=== PATIENT | male | born 1945 | race Caucasian/White ===

== ENCOUNTER 2020-01-11 09:00 | Outpatient (REF) | payer MEDICARE, SELFPAY ==
[2020-01-11 10:25] LABS: MANUAL DIFF FLAG NO
[2020-01-11 10:30] LABS: Basophils Percent Auto 0.5 % (0-2); Eosinophils Absolute Auto 0.2 X10*3/uL (0.0-0.4); Eosinophils Percent Auto 4.4 % (0-4); Hematocrit 49.1 % (42-52); Hemoglobin 16.2 g/dl (14.0-18.0); Imm Gran Abs Auto 0.01 X10*3/uL (0.00-0.03); Imm Gran Pct Auto 0.2 % (0.0-0.4); Lymphocytes Absolute Auto 1.4 X10*3/uL (1.2-4.9); Lymphocytes Percent Auto 26.1 % (20-40); Mean Corpuscular Hemoglobin 31.6 pg (27.0-33.0); Mean Corpuscular Volume 95.9 fL (80-98); Monocytes Absolute Auto 0.9 X10*3/uL (0.1-1.2); Monocytes Percent Auto 16.1 % (2-11); Neutrophils Absolute Auto 2.9 X10*3/uL (2.0-8.3); Neutrophils Percent Auto 52.7 % (45-73); Platelet Count 164 X10*3/uL (160-400); Red Blood Count 5.12 X10*6/uL (4.60-5.80); Red Cell Distribution Width 13.4 % (11.0-16.0); White Blood Count 5.5 X10*3/uL (4.8-10.8)
[2020-01-11 10:45] LABS: Glucose Urine UA NEG (NEG); Leukocyte Esterase Urine NEG (NEG); Nitrite Urine NEG (NEG); Urine Blood NEG (NEG); Urine Ketones NEG (NEG); Urine Protein NEG (NEG-TRACE)
[2020-01-11 10:48] LABS: Appearance Urine CLEAR; Color Urine YELLOW
[2020-01-11 11:04] LABS: Alanine Aminotransferase 26 U/L (0-40); Albumin Level 4.5 g/dL (3.5-5.0); Alkaline Phosphatase 72 U/L (39-117); Anion Gap 13 (12-20); Aspartate Amino Transferase 23 U/L (5-37); Bilirubin Total 1.6 mg/dL (0.0-1.0); Blood Urea Nitrogen 17 mg/dL (9-16); Calcium 9.5 mg/dL (8.4-10.2); Carbon Dioxide 26 mmol/L (22-29); Chloride 105 mmol/L (96-108); Cholesterol 179 mg/dL; Estimated Glomerular Filt Rate 52; Glucose Fasting 108 mg/dL (60-99); HDL Cholesterol 54 mg/dL; LDL Cholesterol Calculated 107 mg/dl; Potassium 4.4 mmol/l (3.3-5.1); Sodium 140 mmol/L (135-145); Total Protein 6.8 g/dL (6.5-8.0); Triglycerides 93 mg/dL
[2020-01-11 11:26] LABS: Prostate Specific Antigen 3.34 ng/mL (<0.05-4.0); Thyroid Stimulating Hormone 0.56 mIU/mL (0.32-4.0)
== END 2020-01-11 09:01 | disposition home or self-care (01) ==
LOC: HO.WFDLDS 09:00
PROVIDERS: Visit Provider Internal Medicine
DX: Z00.00 Encounter for general adult medical examination without abnormal findings (principal); Z12.5 Encounter for screening for malignant neoplasm of prostate; E03.9 Hypothyroidism, unspecified; I10 Essential (primary) hypertension; E78.00 Pure hypercholesterolemia, unspecified
CPT/HCPCS: 36415; 80053; 80061; 81003; 84153; 84443; 85025

== ENCOUNTER → 2020-04-05 08:26 | Outpatient (BNVA) | payer MEDICARE, SELFPAY | PROVIDERS: PCP Internal Medicine; Visit Provider Internal Medicine Cardiovascular Disease | DX: I50.30 Unspecified diastolic (congestive) heart failure (principal); I48.20 Chronic atrial fibrillation, unspecified; I07.1 Rheumatic tricuspid insufficiency | CPT/HCPCS: 99212 ==

== ENCOUNTER 2020-05-01 09:56 | Outpatient (REF) | payer MEDICARE, SELFPAY ==
[2020-05-01 11:13] LABS: Anion Gap 14 (12-20); Blood Urea Nitrogen 19 mg/dL (9-16); Calcium 9.6 mg/dL (8.4-10.2); Carbon Dioxide 26 mmol/L (22-29); Chloride 105 mmol/L (96-108); Estimated Glomerular Filt Rate 47; Glucose Random 71 mg/dL (60-115); Potassium 4.4 mmol/L (3.3-5.1); Sodium 141 mmol/L (135-145)
== END 2020-05-01 09:57 | disposition home or self-care (01) ==
LOC: HO.WFDLDS 09:56
PROVIDERS: Visit Provider Internal Medicine Cardiovascular Disease
DX: I50.30 Unspecified diastolic (congestive) heart failure (principal); I48.20 Chronic atrial fibrillation, unspecified
CPT/HCPCS: 36415; 80048

== ENCOUNTER 2020-07-23 10:45 | Outpatient (REF) | payer MEDICARE, SELFPAY ==
[2020-07-23 12:42] LABS: Alanine Aminotransferase 25 U/L (0-40); Albumin Level 4.4 g/dL (3.5-5.0); Alkaline Phosphatase 76 U/L (39-117); Aspartate Amino Transferase 20 U/L (5-37); Bilirubin Direct 0.5 mg/dL (0.0-0.5); Bilirubin Total 1.2 mg/dL (0.0-1.0); Cholesterol 175 mg/dL; HDL Cholesterol 52 mg/dL; LDL Cholesterol Calculated 103 mg/dl; Total Protein 6.8 g/dL (6.5-8.0); Triglycerides 100 mg/dL
[2020-07-23 12:58] LABS: Reflex LDLD? No
== END 2020-07-23 10:46 | disposition home or self-care (01) ==
LOC: HO.LNP 10:45
PROVIDERS: PCP Internal Medicine; Visit Provider Internal Medicine
DX: E78.00 Pure hypercholesterolemia, unspecified (principal)
CPT/HCPCS: 80061; 80076

== ENCOUNTER 2020-09-26 11:58 | Outpatient (REF) | payer MEDICARE, SELFPAY ==
[2020-09-27 13:12] LABS: Free Prostate Spec Ag 0.9 ng/mL; Percent Free Prostate Spec Ag 20 % (calc) (>25); Prostate Specific Ag Total 4.5 ng/mL (< OR = 4.0)
== END 2020-09-26 11:59 | disposition home or self-care (01) ==
LOC: HO.WFDLDS 11:58
PROVIDERS: PCP Internal Medicine; Visit Provider Physician Assistant Surgical
DX: Z12.5 Encounter for screening for malignant neoplasm of prostate (principal); R97.20 Elevated prostate specific antigen [PSA]
CPT/HCPCS: 36415; 84154

== ENCOUNTER → 2020-10-02 07:30 | Outpatient (REF) | payer MEDICARE, SELFPAY ==
--- NOTE | 2020-10-02 07:32 | CA_ITS ---
Transthoracic Echocardiogram Patient (Last, First, Middle): Madan Oliveira, Gender: Male Date of : 1945 Age: 75 Procedure Date: 10/02/2020 Procedure Type: Transthoracic Echocardiogram Location: OP Height: 175.26 cm Weight: 83.46 kg BSA: 1.99 m2 Heart Rate: bpm BP: 128 / 84 mmHg Locomotive Engineer: Referring MD: Miguel A Garay MD Symptoms: I50.30 - Unspecified diastolic (congestive) heart failure Study Quality: Fair ECG Rhythm: Atrial Fibrillation Conclusions: - The left ventricular systolic function is normal. The visually estimated ejection fraction is between 55-60%. - Mildly increased right ventricular cavity size. - The left atrium is mildly dilated. The right atrium is moderately dilated. - There is mild mitral valve regurgitation. - There is mild tricuspid valve regurgitation. Findings Left Ventricle Normal left ventricular cavity size. There is mildly increased left ventricular wall thickness. The left ventricular systolic function is normal. The visually estimated ejection fraction is between 55-60%. There is no evidence of regional wall motion abnormalities. Diastolic function is indeterminate on the basis of available data. Right Ventricle Mildly increased right ventricular cavity size. There is normal right ventricular systolic function. Atria The left atrium is mildly dilated. The right atrium is moderately dilated. Aortic Valve There is a normal trileaflet aortic valve. There is no aortic valve stenosis. There is no aortic valve regurgitation. Mitral Valve The mitral valve appears normal. There is mild mitral valve regurgitation. There is no mitral valve stenosis. Pulmonic Valve The pulmonic valve was not well visualized. Tricuspid Valve There is mild tricuspid valve regurgitation. The pulmonary artery systolic pressure is normal. Great Vessels The asc aorta and aortic arch are normal in size. Venous The inferior vena cava is normal in size and collapses greater than 50% with inspiration. Pericardium/Pleural There is no evidence of pericardial effusion. Prior Study Comparison No significant change compared to prior study dated: 10/12/2019. Measurements 2D Linear Measurements RVIDd: 3.95 RVIDd Index: 1.98 IVSd: 1.15 0.6-0.9/0.6-1.0 cm LVIDd: 4.37 3.9-5.3/4.2-5.9 cm LVIDd Index: 2.20 2.4-3.2/2.2-3.1 cm/m2 LVIDs: 3.58 2.0-3.6 cm LVPWd: 1.12 0.7-1.1 cm Ao Root: 2.70 2.1-3.5 cm LA Diam: 5.30 2.7-3.8/3.0-4.0 cm LAIDs Index: 2.66 1.5-2.3 cm/m2 LV Mass: 217.67 67-162/88-224 g LV Mass Index: 109.38 43-95/49-115 g/m2 LVOT Diam: 2.10 3.0+(-)1.3 cm 2D Systolic Function EF 4C: 45.80 >55% EF 2C: 51.80 >55% EF BiP: 50.10 >55% Mitral Valve MR Vol - PW Dopp: 11.27 MR VTI: 1.61 MR ERO: 7.00 MR Alias David: 0.32 MR RAD: 0.40 Aortic Valve AoV Pk David: 0.88 AoV Mn David: 0.77 AoV VTI: 0.19 AoV Pk Grad: 3.00 Aov Mn Grad: 2.00 ANA Cont.VTI: 2.09 LVOT LVOT Pk David: 0.58 LVOT Mn David: 0.43 LVOT VTI: 0.11 LVOT Pk Grad: 1.00 LVOT Mn Grad: 1.00 LVOT Diam: 2.10 LVOT Area: 3.46 Tricuspid Valve TR Pk David: 2.66 TR Pk Grad: 28.00 RA Press: 3.00 RVSP: 31.00 Great Vessels Aorta Ao Root-2D: 2.70 2.0-3.7 cm Ao Asc: 3.20 2.1-3.4 cm Ao Arch: 2.80 Updated in Other Vendor System with Status of Final Matt Cleary MD electronically signed on 10/03/2020 1:30:07 PM with status of Final
== END ==
LOC: HO.CARD 07:30
PROVIDERS: PCP Internal Medicine; Visit Provider Internal Medicine Cardiovascular Disease
DX: I48.20 Chronic atrial fibrillation, unspecified (principal); I11.0 Hypertensive heart disease with heart failure; I50.30 Unspecified diastolic (congestive) heart failure; I07.1 Rheumatic tricuspid insufficiency
CPT/HCPCS: 93306

== ENCOUNTER 2020-10-07 13:26 | Outpatient (REF) | payer MEDICARE, SELFPAY | END 2020-10-07 13:27 | disposition home or self-care (01) | LOC: HO.LAB 13:26 | PROVIDERS: PCP Internal Medicine; Referring Provider Internal Medicine; Visit Provider Internal Medicine Cardiovascular Disease | DX: I48.20 Chronic atrial fibrillation, unspecified (principal); I50.30 Unspecified diastolic (congestive) heart failure | CPT/HCPCS: Q3014 ==

== ENCOUNTER 2020-10-09 09:11 | Outpatient (REF) | payer MEDICARE, SELFPAY ==
[2020-10-09 11:21] LABS: Anion Gap 14 (12-20); Blood Urea Nitrogen 17 mg/dL (9-16); Calcium 9.7 mg/dL (8.4-10.2); Carbon Dioxide 24 mmol/L (22-29); Chloride 106 mmol/L (96-108); Estimated Glomerular Filt Rate 46; Glucose Random 133 mg/dL (60-115); Potassium 4.4 mmol/L (3.3-5.1); Sodium 140 mmol/L (135-145)
== END 2020-10-09 09:12 | disposition home or self-care (01) ==
LOC: HO.WFDLDS 09:11
PROVIDERS: PCP Internal Medicine; Visit Provider Internal Medicine Cardiovascular Disease
DX: I48.20 Chronic atrial fibrillation, unspecified (principal)
CPT/HCPCS: 36415; 80048

== ENCOUNTER 2021-01-20 08:31 | Outpatient (REF) | payer MEDICARE, SELFPAY ==
[2021-01-20 11:27] LABS: MANUAL DIFF FLAG NO
[2021-01-20 11:34] LABS: Appearance Urine CLEAR; Color Urine YELLOW; Glucose Urine UA NEG (NEG); Leukocyte Esterase Urine NEG (NEG); Nitrite Urine NEG (NEG); Specific Gravity - Urine 1.015 (1.005-1.025); Urine Blood NEG (NEG); Urine Ketones NEG (NEG); Urine Protein NEG (NEG-TRACE)
[2021-01-20 11:37] LABS: Basophils Percent Auto 0.5 % (0-2); Eosinophils Absolute Auto 0.3 X10*3/uL (0.0-0.4); Hematocrit 49.3 % (42-52); Hemoglobin 16.1 g/dl (14.0-18.0); Imm Gran Abs Auto 0.01 X10*3/uL (0.00-0.03); Imm Gran Pct Auto 0.2 % (0.0-0.4); Lymphocytes Absolute Auto 1.7 X10*3/uL (1.2-4.9); Lymphocytes Percent Auto 28.5 % (20-40); Mean Corpuscular HGB Conc 32.7 g/dl (31.0-36.0); Mean Corpuscular Hemoglobin 31.9 pg (27.0-33.0); Mean Corpuscular Volume 97.8 fL (80-98); Mean Platelet Volume 11.2 fL (9.4-12.4); Monocytes Absolute Auto 0.9 X10*3/uL (0.1-1.2); Neutrophils Absolute Auto 2.9 X10*3/uL (2.0-8.3); Neutrophils Percent Auto 49.8 % (45-73); Platelet Count 149 X10*3/uL (160-400); Red Blood Count 5.04 X10*6/uL (4.60-5.80); Red Cell Distribution Width 13.4 % (11.0-16.0); White Blood Count 5.8 X10*3/uL (4.8-10.8)
[2021-01-20 12:08] LABS: Alanine Aminotransferase 26 U/L (0-40); Albumin Level 4.3 g/dL (3.5-5.0); Alkaline Phosphatase 74 U/L (39-117); Anion Gap 13 (12-20); Aspartate Amino Transferase 22 U/L (5-37); Bilirubin Total 1.4 mg/dL (0.0-1.0); Blood Urea Nitrogen 17 mg/dL (9-16); Calcium 9.5 mg/dL (8.4-10.2); Carbon Dioxide 26 mmol/L (22-29); Chloride 106 mmol/L (96-108); Cholesterol 169 mg/dL; Estimated Glomerular Filt Rate 49; Glucose Fasting 111 mg/dL (60-99); HDL Cholesterol 50 mg/dL; LDL Cholesterol Calculated 101 mg/dl; Potassium 4.5 mmol/L (3.3-5.1); Sodium 140 mmol/L (135-145); Total Protein 6.6 g/dL (6.5-8.0); Triglycerides 93 mg/dL
== END 2021-01-20 08:32 | disposition home or self-care (01) ==
LOC: HO.WFDLDS 08:31
PROVIDERS: Visit Provider Internal Medicine
DX: Z00.00 Encounter for general adult medical examination without abnormal findings (principal); Z12.5 Encounter for screening for malignant neoplasm of prostate; E03.9 Hypothyroidism, unspecified; I10 Essential (primary) hypertension; E83.52 Hypercalcemia; E78.00 Pure hypercholesterolemia, unspecified; N40.0 Benign prostatic hyperplasia without lower urinary tract symptoms
CPT/HCPCS: 36415; 80053; 80061; 81003; 84153; 84443; 85025

== ENCOUNTER 2021-03-27 09:45 | Outpatient (REF) | payer MEDICARE, SELFPAY ==
[2021-03-27 11:23] LABS: Anion Gap 10 (12-20); Blood Urea Nitrogen 15 mg/dL (9-16); Calcium 9.6 mg/dL (8.4-10.2); Carbon Dioxide 29 mmol/L (22-29); Chloride 105 mmol/L (96-108); Estimated Glomerular Filt Rate 50; Glucose Random 100 mg/dL (60-115); Potassium 4.5 mmol/L (3.3-5.1); Sodium 139 mmol/L (135-145)
[2021-03-27 11:27] LABS: B Type Natriuretic Peptide 226 pg/mL (<100)
== END 2021-03-27 09:46 | disposition home or self-care (01) ==
LOC: HO.WFDLDS 09:45
PROVIDERS: Visit Provider Internal Medicine Cardiovascular Disease
DX: I48.20 Chronic atrial fibrillation, unspecified (principal); I50.30 Unspecified diastolic (congestive) heart failure
CPT/HCPCS: 36415; 80048; 83880

== ENCOUNTER → 2021-04-01 12:49 | Outpatient (BNVA) | payer MEDICARE, SELFPAY | PROVIDERS: PCP Internal Medicine; Referring Provider Internal Medicine; Visit Provider Internal Medicine Cardiovascular Disease | DX: I50.30 Unspecified diastolic (congestive) heart failure (principal); I48.20 Chronic atrial fibrillation, unspecified | CPT/HCPCS: 93005; 99212 ==

== ENCOUNTER 2021-07-17 09:35 | Outpatient (REF) | payer MEDICARE, SELFPAY ==
[2021-07-17 12:26] LABS: Alanine Aminotransferase 32 U/L (0-40); Albumin Level 4.2 g/dL (3.5-5.0); Alkaline Phosphatase 77 U/L (39-117); Aspartate Amino Transferase 26 U/L (5-37); Bilirubin Direct 0.4 mg/dL (0.0-0.5); Bilirubin Total 1.1 mg/dL (0.0-1.0); Cholesterol 186 mg/dL; HDL Cholesterol 55 mg/dL; LDL Cholesterol Calculated 114 mg/dl; Total Protein 6.8 g/dL (6.5-8.0); Triglycerides 85 mg/dL
== END 2021-07-17 09:36 | disposition home or self-care (01) ==
LOC: HO.WFDLDS 09:35
PROVIDERS: Visit Provider Internal Medicine
DX: E78.00 Pure hypercholesterolemia, unspecified (principal)
CPT/HCPCS: 36415; 80061; 80076

== ENCOUNTER 2021-07-25 10:05 | Outpatient (REF) | payer MEDICARE, SELFPAY ==
--- NOTE | ~2021-07-25 | US_ITS ---
EXAMINATION: ULTRASOUND VENOUS DUPLEX RIGHT LEG. CHEST X-RAY. CLINICAL INFORMATION: Right calf tenderness. Bronchospasm. COMPARISON: None TECHNIQUE: Routine grayscale, color and Doppler imaging of right lower leg was performed. Chest 2 views. FINDINGS: RIGHT LOWER LEG VENOUS DOPPLER EXAM: There is normal compression, flow and augmentation seen in the right common femoral, greater saphenous, profunda, popliteal, posterior tibial and peroneal veins. There is no Lipscomb's cyst. The soft tissues are normal. CHEST: Both lungs are fairly well-expanded and clear of acute pneumonic process . The heart size is enlarged. Pulmonary vascularity is normal. 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 No lytic process. US/US venous duplex LE RT IMPRESSION: Mild cardiomegaly otherwise unremarkable chest exam. 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 No evidence of DVT right lower leg.
== END 2021-07-25 10:06 | disposition home or self-care (01) ==
LOC: HO.US 10:05
PROVIDERS: PCP Internal Medicine; Visit Provider Internal Medicine
DX: J98.01 Acute bronchospasm (principal); M79.661 Pain in right lower leg
CPT/HCPCS: 71046; 93971

== ENCOUNTER 2021-08-03 12:25 | Inpatient (IN) | payer MEDICARE, SELFPAY ==
[2021-08-03] VITALS (25 sets, daily range): BP systolic 41–135; BP diastolic 21–101; PULSE 59–154; RESP 16–24; TEMP 35.2–36.3; O2SAT 97–100; BMI 28.0
--- NOTE | ~2021-08-03 | NM_ITS ---
EXAMINATION: PULMONARY PERFUSION STUDY CLINICAL INFORMATION: Rule out pulmonary embolism. COMPARISON: No previous lung scan is available for comparison. A radiograph of the chest dated 08/03/20[address] is available for comparison. CT scan of the chest on the same date is also available. TECHNIQUE: Following the intravenous administration of 4.0 mCi Tc-99m MAA an 8-view perfusion study was performed using a dual detector gamma scintillation camera. No ventilation images were obtained. FINDINGS: Perfusion images: There is moderately heterogeneous distribution of activity within the lungs with multiple subsegmental perfusion defects present bilaterally in the lower lobes and right middle lobe. No segmental perfusion defects are present. The CT scan dated 08/03/2021 shows some linear atelectasis or scarring in the right middle lobe, the bilateral lower lobes and lingula that are in the regions of the perfusion abnormalities described above on this lung scan. NM/NM pul perfusion IMPRESSION: Intermediate probability of pulmonary embolism. Predominantly bilateral lower lobe and right middle lobe subsegmental perfusion defects are present and while these could be due to atelectasis or pneumonitis, pulmonary embolism cannot be ruled out. If not contraindicated, further evaluation with CT angiography of the chest is recommended.
--- NOTE | ~2021-08-03 | CT_ITS ---
EXAMINATION: CT CHEST WITHOUT CONTRAST CLINICAL INFORMATION: Cough and shortness of breath COMPARISON: Today's chest film and priors TECHNIQUE: Multidetector volumetric CT imaging of the chest was done. Axial MIP volume rendering provided. Sagittal and coronal reformatted images were obtained. This CT examination was performed using dose optimization techniques as appropriate, variously including the following: *Automated exposure control *Adjustment of mA and/or kV according to patient size (this includes techniques or standardized protocols for targeted exams where dose is matched to indication/reason for exam; i.e. extremities or head) *Use of iterative reconstruction technique DLP: 323 mGy-cm FINDINGS: MANAGER UNION: Linear midlung parenchymal opacities again noted. LUNGS: Parenchymal opacities in the lingula and right middle lobe and both posterior lower lobes are predominantly linear and bandlike. This most likely represents subsegmental atelectasis. Cannot exclude bronchopneumonia. There is diffuse bronchial wall thickening. Common considerations bronchitis (acute or chronic, asthma, or smoking. Clinical correlation is required regarding upper respiratory tract infection. No lobar consolidation. MEDIASTINUM: No mass. No adenopathy. Moderate coronary artery disease. Mild atherosclerotic peripheral vascular disease. PLEURA: There is no pleural effusion. No pleural mass or thickening. AXILLA: No lymphadenopathy. UPPER ABDOMEN: There is a small volume of ascites. This is abnormal but of uncertain etiology. Recommend evaluation of the abdomen. Perinephric fat stranding is nonspecific. Often age-related, however clinical correlation is required to exclude pyelonephritis or glomerulonephritis. OSSEOUS STRUCTURES: Degenerative spine disease. CT/CT chest wo con IMPRESSION: 1. Diffusely thick-walled airways. 2. Multifocal predominantly linear bandlike parenchymal opacities. Subsegmental atelectasis favored but cannot exclude bronchopneumonia. 3. Small volume of loculated ascites overlying the liver. This is abnormal and further evaluation of the abdomen is advised. Fleischner guidelines were followed.
--- NOTE | ~2021-08-03 | XR_ITS ---
EXAMINATION: XR CHEST CLINICAL INFORMATION: Chest pain and shortness of breath COMPARISON: Chest x-ray on 07/25/2021 TECHNIQUE: 2 views of the chest were obtained. FINDINGS: The cardiac mediastinal silhouette is normal. Linear atelectasis in lingula. No pleural effusions. No additional areas consolidation. XR/XR chest 2V IMPRESSION: Lingular atelectasis.
--- NOTE | ~2021-08-03 | XR_ITS ---
EXAMINATION: XR CHEST CLINICAL INFORMATION: Central line placement COMPARISON: Earlier exam same day TECHNIQUE: Portable upright 6:46 PM view of the chest was obtained. FINDINGS: Right-sided central line placed with its tip overlying the SVC. No pneumothorax. Minor discoid atelectasis on the left again noted. No significant abnormality is otherwise new noted involving the heart, lungs, mediastinum, bony thorax or soft tissues. XR/XR chest 1V IMPRESSION: As above.
--- NOTE | 2021-08-03 12:47 | ECG_ITS ---
Test Reason : SOB Blood Pressure : / mmHG Vent. Rate : 126 BPM Atrial Rate : 000 BPM P-R Int : 000 ms QRS Dur : 076 ms QT Int : 320 ms P-R-T Axes : 000 022 -12 degrees QTc Int : 463 ms Atrial fibrillation with rapid ventricular response Nonspecific T wave abnormality Abnormal ECG When compared with ECG of 15-JAN-2012 09:11, No significant change was found Referred By: Shalonda Moscoso Electronically Signed By:ANDREY CASTRO MD
--- NOTE | 2021-08-03 13:09 | ED_ITS ---
HPI - URI/Sore Throat General Chief Complaint: Upper Respiratory Symptoms <Shalonda Moscoso NP - Last Filed: 08/03/21 16:51> Stated Complaint: SOB/Cough <Shalonda Moscoso NP - Last Filed: 08/03/21 16:51> Time Seen by Provider: 08/03/21 12:36 <Shalonda Moscoso NP - Last Filed: 08/03/21 16:51> Source: patient and family <Shalonda Moscoso NP - Last Filed: 08/03/21 16:51> Mode of arrival: wheelchair <LUANN Dudley Last Filed: 08/03/21 16:51> Limitations: no limitations <LUANN Dudley Last Filed: 08/03/21 16:51> History of Present Illness HPI Narrative: 76-year-old male with a history of AFib on Pradaxa/rate controlled with atenolol, congestive heart failure on 20 mg of Lasix daily with EF 55-60%, hypertension here with reports of 10 days of cough, shortness of breath and chest tightness. Patient tells me he took his last dose of prednisone today after completing a 10 day taper that was prescribed by his primary care doctor. Did have an outpatient chest x-ray last week which was normal per patient. Tells me he has continued to have cough and shortness of breath. He tells me he is only able to walk a few steps without feeling like it is difficult to breathe. No orthopnea, no leg swelling or weight gain, no chest pain, no fevers . No reported history of COPD or asthma. Patient tells me he has a history of former tobacco use <LUANN Dudley Last Filed: 08/03/21 16:51> Related Data Home Medications: Home Medications Medication Instructions Recorded Confirmed atorvastatin 10 mg tablet 10 mg PO DAILY 04/05/20 08/03/21 furosemide 20 mg tablet 20 mg PO DAILY 04/05/20 08/03/21 latanoprost 0.005 % eye drops 1 drp OPHTHALMIC (EYE) BEDTIME 04/05/20 08/03/21 levothyroxine 100 mcg tablet 100 mcg PO DAILY 04/05/20 08/03/21 omeprazole 20 mg capsule,delayed 20 mg PO DAILY 04/05/20 08/03/21 release dabigatran etexilate 150 mg 150 mg PO BID 10/07/20 08/03/21 capsule (Pradaxa) albuterol sulfate 90 mcg/actuation 1 puff INHALATION Q4H PRN 08/03/21 08/03/21 aerosol inhaler Previous Rx's Medication Instructions Recorded atenolol 100 mg tablet 100 mg PO BID #180 cap 05/14/21 <Shalonda Moscoso NP - Last Filed: 08/03/21 16:51> Allergies/Adverse Reactions: Allergies Allergy/AdvReac Type Severity Reaction Status Date / Time No Known Allergies Allergy Verified 04/01/21 12:57 <Shalonda Moscoso NP - Last Filed: 08/03/21 16:51> Review of Systems Review of Systems: Yes all other systems are reviewed and are negative <LUANN Dudley Last Filed: 08/03/21 16:51> Constitutional: Constitutional: Reports no additional constitutional complaints, Denies body ache(s), Denies chills, Denies fever(s), Denies headache(s) and Denies weakness <LUANN Dudley Last Filed: 08/03/21 16:51> Eyes: Eyes: Reports no additional eye complaints and Denies change in vision <LUANN Dudley Last Filed: 08/03/21 16:51> ENT: Reports system reviewed and no additional complaints, except as documented, Denies dizziness, Denies headache(s), Denies nasal congestion, Denies nasal discharge and Denies neck pain <Shalonda Moscoso NP - Last Filed: 08/03/21 16:51> Cardiovascular: Cardiovascular: Reports no additional cardiovascular c omplaints, Denies chest pain, Denies leg edema and Reports dyspnea <LUANN Dudley Last Filed: 08/03/21 16:51> Comments: +chest tightness <Shalonda Moscoso NP - Last Filed: 08/03/21 16:51> Respiratory: Respiratory: Reports no additional respiratory complaints, Reports cough and Reports dyspnea <Shalonda Moscoso NP - Last Filed: 08/03/21 16:51> Gastrointestinal: Gastrointestinal: Reports no additional gastrointestinal complaints, Denies abdominal pain, Denies diarrhea, Denies nausea and Denies vomiting <Shalonda Moscoso NP - Last Filed: 08/03/21 16:51> Genitourinary: Genitourinary: Denies urinary incontinence <Shalonda Moscoso NP - Last Filed: 08/03/21 16:51> Musculoskeletal: Musculoskeletal: Reports no additional musculoskeletal complaints, Denies back pain, Denies arthralgias, Denies joint swelling, Denies neck pain, Denies numbness and Denies tingling <Shalonda Moscoso NP - Last Filed: 08/03/21 16:51> Integumentary/Breasts: Skin/Breast: Reports system reviewed and no additional complaints, except as docu and Denies rash <Shalonda Moscoso NP - Last Filed: 08/03/21 16:51> Neurologic: Reports system reviewed and no additional complaints, except as documented, Denies Abnormal speech present, Denies dizziness, Denies headache(s), Denies numbness, Denies tingling and Denies weakness <Shalonda Moscoso NP - Last Filed: 08/03/21 16:51> [facility] Past Medical History Attestation statement: The following information was validated with the patient. <Shalonda Moscoso NP - Last Filed: 08/03/21 16:51> Source: old records reviewed and nursing notes reviewed <Shalonda Moscoso NP - Last Filed: 08/03/21 16:51> Medical History: Medical History (HFpEF) heart failure with preserved ejection fraction Biatrial enlargement Chronic atrial fibrillation Chronic kidney disease HTN (hypertension) Tricuspid regurgitation <Shalonda Moscoso NP - Last Filed: 08/03/21 16:51> Surgical History: Surgical History History of appendectomy History of esophageal dilatation Hx of cataract surgery Hx of inguinal hernia repair <LUANN Dudley Last Filed: 08/03/21 16:51> Family History Family History: Family History Father No problems noted. Mother HTN (hypertension) <Shalonda Moscoso NP - Last Filed: 08/03/21 16:51> Social History Social History: Social History Alcohol intake: current Alcohol intake frequency: does not drink Alcohol type: wine Patient Tobacco Use Status: Former Tobacco user Quit Date: 1967 Years Smoked: 10 +/- <Shalonda Moscoso NP - Last Filed: 08/03/21 16:51> Physical Exam Vital Signs: Vital Signs: Last Vital Signs Temp 95.3 F L 08/03/21 12:28 Pulse 127 H 08/03/21 21:00 Resp 16 08/03/21 21:00 BP 129/74 08/03/21 21:00 Pulse Ox 100 08/03/21 21:00 BMI result Body Mass Index 28.0 <Shalonda Moscoso NP - Last Filed: 08/03/21 16:51> Vital Signs: Last Vital Signs Temp 95.3 F L 08/03/21 12:28 Pulse 127 H 08/03/21 21:00 Resp 16 08/03/21 21:00 BP 129/74 08/03/21 21:00 Pulse Ox 100 08/03/21 21:00 BMI result Body Mass Index 28.0 <Nikki Wilkerson MD - Last Filed: 08/03/21 22:41> Const: General: cooperative, healthy appearing, comfortable and no acute distress <Shalonda Moscoso NP - Last Filed: 08/03/21 16:51> Orientation/consciousness: patient oriented x3 <Shalonda Moscoso NP - Last Filed: 08/03/21 16:51> Limitations: no limitations <Shalonda Moscoso NP - Last Filed: 08/03/21 16:51> HEENT: Head: Yes normal to inspection <Shalonda Moscoso NP - Last Filed: 08/03/21 16:51> Ears: hearing grossly normal bilaterally and TM's normal bilaterally <Shalonda Moscoso NP - Last Filed: 08/03/21 16:51> General nose exam: Normal external nose present <Shalonda Moscoso NP - Last Filed: 08/03/21 16:51> Face and sinus: Yes normal facial exam <Shalonda Moscoso NP - Last Filed: 08/03/21 16:51> Mouth: Normal oral and palatal mucosa present <Shalonda Moscoso NP - Last Filed: 08/03/21 16:51> Throat: Yes posterior oropharynx normal, Yes tonsils normal and Yes uvula midline <Shalonda Moscoso NP - Last Filed: 08/03/21 16:51> Eyes: General: appearance normal, both eyes and all related structures <Shalonda Moscoso NP - Last Filed: 08/03/21 16:51> Pupils: Equal, round and reactive pupils present <Shalonda Moscoso NP - Last Filed: 08/03/21 16:51> Neck: Neck: Yes normal visual inspection, Yes full ROM, Yes no lymphadenopathy and Yes no meningeal signs <Shalonda Moscoso NP - Last Filed: 08/03/21 16:51> Chest: Chest palpation & inspection: normal inspection of the chest <Shalonda Moscoso NP - Last Filed: 08/03/21 16:51> Resp: Other: Tachypnea-rate of 24 Expiratory wheezing throughout <Shalonda Moscoso NP - Last Filed: 08/03/21 16:51> Cardio: Rate: tachycardic <Shalonda Moscoso NP - Last Filed: 08/03/21 16:51> Rhythm: abnormal rhythm irregularly irregular <Shalonda Moscoso NP - Last Filed: 08/03/21 16:51> Peripheral pulses: Peripheral pulses 2+ throughout <Shalonda Moscoso NP - Last Filed: 08/03/21 16:51> GI: Inspection: Yes normal to inspection <Shalonda Moscoso NP - Last Filed: 08/03/21 16:51> Palpation (GI): Soft to palpation and nontender <Shalonda Moscoso NP - Last Filed: 08/03/21 16:51> Auscultation: normal bowel sounds <Shalonda Moscoso NP - Last Filed: 08/03/21 16:51> Back/Spine/Pelvis: Thoracic/Lumbar Spine: thoracic and lumbar spine normal to inspection <Shalonda Moscoso NP - Last Filed: 08/03/21 16:51> Skin: General skin exam: no rashes or lesions noted <Shalonda Moscoso NP - Last Filed: 08/03/21 16:51> Neuro: General: patient oriented x3, no meningeal signs, no focal motor defic its and normal sensation to monofilament <Shalonda Moscoso NP - Last Filed: 08/03/21 16:51> Cranial nerves: Yes Equal, round and reactive pupils present <Shalonda Moscoso NP - Last Filed: 08/03/21 16:51> Cognition (Neuro): normal cognition <Shalonda Moscoso NP - Last Filed: 16:51> Speech: No Abnormal speech present <Shalonda Moscoso NP - Last Filed: 08/03/21 16:51> Gait exam (Neuro): Normal gait present <Shalonda Moscoso NP - Last Filed: 08/03/21 16:51> Motor exam (neuro): 5/5 motor strength present throughout <Shalonda Moscoso NP - Last Filed: 08/03/21 16:51> Extrem: General: Yes normal to inspection, Yes no pedal edema and Yes no calf tenderness <Shalonda Moscoso NP - Last Filed: 08/03/21 16:51> Course Course Course Narrative: 76-year-old male with a history of congestive heart failure, AFib, hyp ertension here with reports of shortness of breath, cough, chest tightness for 10 days unrelieved with albuterol at home, prednisone taper. On arrival the patient is mildly tachypneic. Oxygen saturation is normal. He has expiratory wheezing throughout. He is tachycardic with irregularly irregular pulse. Will check labs, EKG, chest x-ray, COVID and flu testing. Will give DuoNeb, magnesium, Solu-Medrol, Cardizem for rate control <Shalonda Moscoso NP - Last Filed: 08/03/21 16:51> Reevaluation(s) Reevaluation #1: Heart rate now 140s despite 10 mg of IV Cardizem. Blood pressure is stable. Patient be placed on a Cardizem drip. Reviewed labs. Mildly elevated lactic acid which is likely secondary to albuterol and not infection. Leukocytosis which is likely reactive and not infection. Patient has an elevated BUN and creatinine consistent with an BONI. He also has an elevated troponin with no reports of chest pain in the EKG which shows AFib with no ST changes. Plan to follow, low concern for ACS. BNP elevated from previous. CXR pending. <Shalonda Moscoso NP - Last Filed: 08/03/21 16:51> Time: 14:24 <Shalonda Moscoso NP - Last Filed: 08/03/21 16:51> Reevaluation #2: CT is concerning for pneumonia. At this time infection is suspected. Antibiotics ordered. There may also be underlying CHF. Patient clinically does not appear failure but does have an increased BNP from baseline. Will give 20 mg IV Lasix. Troponin initially mildly elevated. Repeat unchanged. Likely demand. Low concern for ACS Anticipate admission <Shalonda Moscoso NP - Last Filed: 08/03/21 16:51> Time: 15:39 <Shalonda Moscoso NP - Last Filed: 08/03/21 16:51> Reevaluation #3: Spoke to hospitalist Dr. Garza who accepted patient. <Shalonda Moscoso NP - Last Filed: 08/03/21 16:51> Time: 16:00 <Shalonda Moscoso NP - Last Filed: 08/03/21 16:51> MDM - URI/Sore Throat MDM Narrative Medical decision making narrative: Rapid AFib, viral syndrome, congestive heart failure, <Shalonda Moscoso NP - Last Filed: 08/03/21 16:51> Rapid AFib, viral syndrome, congestive heart failure, Approximately 16:30, I was asked by Dr. Garza to insert a central line. Patient's blood pressure was low and needed pressors, likely secondary to Cardizem. Patient agreed to the procedure. A triple-lumen was inserted, patient tolerated well the procedure <Nikki Wilkerson MD - Last Filed: 08/03/21 22:41> Medical Records Attestation: I reviewed the patient's medical records. <Shalonda Moscoso NP - Last Filed: 08/03/21 16:51> Lab Data Attestation: I reviewed the patient's lab results. <Shalonda Moscoso NP - Last Filed: 08/03/21 16:51> Result diagrams: : 08/03/21 13:07 08/03/21 13:07 <Shalonda Moscoso NP - Last Filed: 08/03/21 16:51> Labs: Lab Results 08/03/21 08/03/21 08/03/21 Range/Units 13:07 13:07 13:07 WBC 13.4 H (4.8-10.8) X10*3/uL RBC 5.12 (4.60-5.80) X10*6/uL Hgb 16.7 (14.0-18.0) g/dl Hct 50.2 (42.0-52.0) % MCV 98.0 (80.0-98.0) fL MCH 32.6 (27.0-33.0) pg MCHC 33.3 (31.0-36.0) g/dl RDW 13.8 (11.0-16.0) % Plt Count 188 (160-400) X10*3/uL MPV 11.1 (9.4-12.4) fL Immature Gran % (Auto) 2.1 H (0.0-0.4) % Neut % (Auto) 69.0 (45-73) % Lymph % (Auto) 15.8 L (20-40) % [place] % (Auto) 11.7 H (2-11) % Eos % (Auto) 1.3 (0-4) % Baso % (Auto) 0.1 (0-2) % Lymph # (Auto) 2.1 (1.2-4.9) X10*3/uL [place] # (Auto) 1.6 H (0.1-1.2) X10*3/uL Eos # (Auto) 0.2 (0.0-0.4) X10*3/uL Baso # (Auto) 0.0 (0.0-0.2) X10*3/uL Abs Immat Gran (auto) 0.28 H (0.00-0.03) X10*3/uL Absolute Neuts (auto) 9.2 H (2.0-8.3) x10*3/uL Absolute Nucleated RBC 0.000 (0.0-0.012) X10*3/uL Nucleated RBC % (auto) 0.0 (0.0-0.2) /100WBC Smear Tech's Comments VERIFIED PT (9.9-13.0) SEC INR (0.9-1.1) Sodium 138 (135-145) mmol/L Potassium 4.2 (3.3-5.1) mmol/L Chloride 103 (96-108) mmol/L Carbon Dioxide 23 (22-29) mmol/L Anion Gap 16 (12-20) BUN 28 H D (9-16) mg/dL Creatinine 1.84 H (0.5-1.4) mg/dL Estim Creat Clear Calc 37.1 Estimated GFR 36 Random Glucose 105 (60-115) mg/dL Lactic Acid (0.5-2.0) mmol/L Lactic Acid F/U @ 2Hr (0.5-2.0) mmol/L Calcium 9.7 (8.4-10.2) mg/dL Magnesium 2.4 (1.6-2.6) mg/dL Total Bilirubin 1.4 H (0.0-1.0) mg/dL Direct Bilirubin 0.6 H (0.0-0.5) mg/dL AST 37 D (5-37) U/L ALT 66 H (0-40) U/L Alkaline Phosphatase 60 D (39-117) U/L Troponin I High Sens 159.7 H* (<3.5-35.0) ng/L B-Natriuretic Peptide (<100) pg/mL Total Protein 7.1 (6.5-8.0) g/dL Albumin 4.4 (3.5-5.0) g/dL COVID-19 (JORGE) (Negative) COVID-19 Clin Com Influenza Type A (JOSIE) (Negative) Influenza Type B (JOSIE) (Negative) Influenza A & B Note 08/03/21 08/03/2108/03/22 Range/Units 13:07 13:07 13:07 WBC (4.8-10.8) X10*3/uL RBC (4.60-5.80) X10*6/uL Hgb (14.0-18.0) g/dl Hct (42.0-52.0) % MCV (80.0-98.0) fL MCH (27.0-33.0) pg MCHC (31.0-36.0) g/dl RDW (11.0-16.0) % Plt Count (160-400) X10*3/uL MPV (9.4-12.4) fL Immature Gran % (Auto) (0.0-0.4) % Neut % (Auto) (45-73) % Lymph % (Auto) (20-40) % [place] % (Auto) (2-11) % Eos % (Auto) (0-4) % Baso % (Auto) (0-2) % Lymph # (Auto) (1.2-4.9) X10*3/uL [place] # (Auto) (0.1-1.2) X10*3/uL Eos # (Auto) (0.0-0.4) X10*3/uL Baso # (Auto) (0.0-0.2) X10*3/uL Abs Immat Gran (auto) (0.00-0.03) X10*3/uL Absolute Neuts (auto) (2.0-8.3) x10*3/uL Absolute Nucleated RBC (0.0-0.012) X10*3/uL Nucleated RBC % (auto) (0.0-0.2) /100WBC Smear Tech's Comments PT 14.7 H (9.9-13.0) SEC INR 1.3 H (0.9-1.1) Sodium (135-145) mmol/L Potassium (3.3-5.1) mmol/L Chloride (96-108) mmol/L Carbon Dioxide (22-29) mmol/L Anion Gap (12-20) BUN (9-16) mg/dL Creatinine (0.5-1.4) mg/dL Estim Creat Clear Calc Estimated GFR Random Glucose (60-115) mg/dL Lactic Acid (0.5-2.0) mmol/L Lactic Acid F/U @ 2Hr (0.5-2.0) mmol/L Calcium (8.4-10.2) mg/dL Magnesium (1.6-2.6) mg/dL Total Bilirubin (0.0-1.0) mg/dL Direct Bilirubin (0.0-0.5) mg/dL AST (5-37) U/L ALT (0-40) U/L Alkaline Phosphatase (39-117) U/L Troponin I High Sens (<3.5-35.0) ng/L B-Natriuretic Peptide (<100) pg/mL Total Protein (6.5-8.0) g/dL Albumin (3.5-5.0) g/dL COVID-19 (JORGE) Negative (Negative) COVID-19 Clin Com See Note Influenza Type A (JOSIE) Negative (Negative) Influenza Type B (JOSIE) Negative (Negative) Influenza A & B Note See Note 08/03/21 08/03/21 08/03/21 Range/Units 13:07 13:08 15:51 WBC (4.8-10.8) X10*3/uL RBC (4.60-5.80) X10*6/uL Hgb (14.0-18.0) g/dl Hct (42.0-52.0) % MCV (80.0-98.0) fL MCH (27.0-33.0) pg MCHC (31.0-36.0) g/dl RDW (11.0-16.0) % Plt Count (160-400) X10*3/uL MPV (9.4-12.4) fL Immature Gran % (Auto) (0.0-0.4) % Neut % (Auto) (45-73) % Lymph % (Auto) (20-40) % [place] % (Auto) (2-11) % Eos % (Auto) (0-4) % Baso % (Auto) (0-2) % Lymph # (Auto) (1.2-4.9) X10*3/uL [place] # (Auto) (0.1-1.2) X10*3/uL Eos # (Auto) (0.0-0.4) X10*3/uL Baso # (Auto) (0.0-0.2) X10*3/uL Abs Immat Gran (auto) (0.00-0.03) X10*3/uL Absolute Neuts (auto) (2.0-8.3) x10*3/uL Absolute Nucleated RBC (0.0-0.012) X10*3/uL Nucleated RBC % (auto) (0.0-0.2) /100WBC Smear Tech's Comments PT (9.9-13.0) SEC INR (0.9-1.1) Sodium (135-145) mmol/L Potassium (3.3-5.1) mmol/L Chloride (96-108) mmol/L Carbon Dioxide (22-29) mmol/L Anion Gap (12-20) BUN (9-16) mg/dL Creatinine (0.5-1.4) mg/dL Estim Creat Clear Calc Estimated GFR Random Glucose (60-115) mg/dL Lactic Acid 2.3 H* (0.5-2.0) mmol/L Lactic Acid F/U @ 2Hr 2.0 (0.5-2.0) mmol/L Calcium (8.4-10.2) mg/dL Magnesium (1.6-2.6) mg/dL Total Bilirubin (0.0-1.0) mg/dL Direct Bilirubin (0.0-0.5) mg/dL AST (5-37) U/L ALT (0-40) U/L Alkaline Phosphatase (39-117) U/L Troponin I High Sens (<3.5-35.0) ng/L B-Natriuretic Peptide 1180 H (<100) pg/mL Total Protein (6.5-8.0) g/dL Albumin (3.5-5.0) g/dL COVID-19 (JORGE) (Negative) COVID-19 Clin Com Influenza Type A (JOSIE) (Negative) Influenza Type B (JOSIE) (Negative) Influenza A & B Note 08/03/21 Range/Units 16:00 WBC (4.8-10.8) X10*3/uL RBC (4.60-5.80) X10*6/uL Hgb (14.0-18.0) g/dl Hct (42.0-52.0) % MCV (80.0-98.0) fL MCH (27.0-33.0) pg MCHC (31.0-36.0) g/dl RDW (11.0-16.0) % Plt Count (160-400) X10*3/uL MPV (9.4-12.4) fL Immature Gran % (Auto) (0.0-0.4) % Neut % (Auto) (45-73) % Lymph % (Auto) (20-40) % [place] % (Auto) (2-11) % Eos % (Auto) (0-4) % Baso % (Auto) (0-2) % Lymph # (Auto) (1.2-4.9) X10*3/uL [place] # (Auto) (0.1-1.2) X10*3/uL Eos # (Auto) (0.0-0.4) X10*3/uL Baso # (Auto) (0.0-0.2) X10*3/uL Abs Immat Gran (auto) (0.00-0.03) X10*3/uL Absolute Neuts (auto) (2.0-8.3) x10*3/uL Absolute Nucleated RBC (0.0-0.012) X10*3/uL Nucleated RBC % (auto) (0.0-0.2) /100WBC Smear Tech's Comments PT (9.9-13.0) SEC INR (0.9-1.1) Sodium (135-145) mmol/L Potassium (3.3-5.1) mmol/L Chloride (96-108) mmol/L Carbon Dioxide (22-29) mmol/L Anion Gap (12-20) BUN (9-16) mg/dL Creatinine (0.5-1.4) mg/dL Estim Creat Clear Calc Estimated GFR Random Glucose (60-115) mg/dL Lactic Acid (0.5-2.0) mmol/L Lactic Acid F/U @ 2Hr (0.5-2.0) mmol/L Calcium (8.4-10.2) mg/dL Magnesium (1.6-2.6) mg/dL Total Bilirubin (0.0-1.0) mg/dL Direct Bilirubin (0.0-0.5) mg/dL AST (5-37) U/L ALT (0-40) U/L Alkaline Phosphatase (39-117) U/L Troponin I High Sens 158.1 H* (<3.5-35.0) ng/L B-Natriuretic Peptide (<100) pg/mL Total Protein (6.5-8.0) g/dL Albumin (3.5-5.0) g/dL COVID-19 (OJRGE) (Negative) COVID-19 Clin Com Influenza Type A (JOSIE) (Negative) Influenza Type B (JOSIE) (Negative) Influenza A & B Note <Shalonda Msocoso NP - Last Filed: 08/03/21 16:51> Lab Results 08/03/21 08/03/21 08/03/21 Range/Units 13:07 13:07 13:07 WBC 13.4 H (4.8-10.8) X10*3/uL RBC 5.12 (4.60-5.80) X10*6/uL Hgb 16.7 (14.0-18.0) g/dl Hct 50.2 (42.0-52.0) % MCV 98.0 (80.0-98.0) fL MCH 32.6 (27.0-33.0) pg MCHC 33.3 (31.0-36.0) g/dl RDW 13.8 (11.0-16.0) % Plt Count 188 (160-400) X10*3/uL MPV 11.1 (9.4-12.4) fL Immature Gran % (Auto) 2.1 H (0.0-0.4) % Neut % (Auto) 69.0 (45-73) % Lymph % (Auto) 15.8 L (20-40) % [place] % (Auto) 11.7 H (2-11) % Eos % (Auto) 1.3 (0-4) % Baso % (Auto) 0.1 (0-2) % Lymph # (Auto) 2.1 (1.2-4.9) X10*3/uL [place] # (Auto) 1.6 H (0.1-1.2) X10*3/uL Eos # (Auto) 0.2 (0.0-0.4) X10*3/uL Baso # (Auto) 0.0 (0.0-0.2) X10*3/uL Abs Immat Gran (auto) 0.28 H (0.00-0.03) X10*3/uL Absolute Neuts (auto) 9.2 H (2.0-8.3) x10*3/uL Absolute Nucleated RBC 0.000 (0.0-0.012) X10*3/uL Nucleated RBC % (auto) 0.0 (0.0-0.2) /100WBC Smear Tech's Comments VERIFIED PT (9.9-13.0) SEC INR (0.9-1.1) Sodium 138 (135-145) mmol/L Potassium 4.2 (3.3-5.1) mmol/L Chloride 103 (96-108) mmol/L Carbon Dioxide 23 (22-29) mmol/L Anion Gap 16 (12-20) BUN 28 H D (9-16) mg/dL Creatinine 1.84 H (0.5-1.4) mg/dL Estim Creat Clear Calc 37.1 Estimated GFR 36 Random Glucose 105 (60-115) mg/dL Lactic Acid (0.5-2.0) mmol/L Lactic Acid F/U @ 2Hr (0.5-2.0) mmol/L Calcium 9.7 (8.4-10.2) mg/dL Magnesium 2.4 (1.6-2.6) mg/dL Total Bilirubin 1.4 H (0.0-1.0) mg/dL Direct Bilirubin 0.6 H (0.0-0.5) mg/dL AST 37 D (5-37) U/L ALT 66 H (0-40) U/L Alkaline Phosphatase 60 D (39-117) U/L Troponin I High Sens 159.7 H* (<3.5-35.0) ng/L B-Natriuretic Peptide (<100) pg/mL Total Protein 7.1 (6.5-8.0) g/dL Albumin 4.4 (3.5-5.0) g/dL COVID-19 (JORGE) (Negative) COVID-19 Clin Com Influenza Type A (JOSIE) (Negative) Influenza Type B (JOSIE) (Negative) Influenza A & B Note 08/03/21 08/03/21 08/03/21 Range/Units 13:07 13:07 13:07 WBC (4.8-10.8) X10*3/uL RBC (4.60-5.80) X10*6/uL Hgb (14.0-18.0) g/dl Hct (42.0-52.0) % MCV (80.0-98.0) fL MCH (27.0-33.0) pg MCHC (31.0-36.0) g/dl RDW (11.0-16.0) % Plt Count (160-400) X10*3/uL MPV (9.4-12.4) fL Immature Gran % (Auto) (0.0-0.4) % Neut % (Auto) (45-73) % Lymph % (Auto) (20-40) % [place] % (Auto) (2-11) % Eos % (Auto) (0-4) % Baso % (Auto) (0-2) % Lymph # (Auto) (1.2-4.9) X10*3/uL [place] # (Auto) (0.1-1.2) X10*3/uL Eos # (Auto) (0.0-0.4) X10*3/uL Baso # (Auto) (0.0-0.2) X10*3/uL Abs Immat Gran (auto) (0.00-0.03) X10*3/uL Absolute Neuts (auto) (2.0-8.3) x10*3/uL Absolute Nucleated RBC (0.0-0.012) X10*3/uL Nucleated RBC % (auto) (0.0-0.2) /100WBC Smear Tech's Comments PT 14.7 H (9.9-13.0) SEC INR 1.3 H (0.9-1.1) Sodium (135-145) mmol/L Potassium (3.3-5.1) mmol/L Chloride (96-108) mmol/L Carbon Dioxide (22-29) mmol/L Anion Gap (12-20) BUN (9-16) mg/dL Creatinine (0.5-1.4) mg/dL Estim Creat Clear Calc Estimated GFR Random Glucose (60-115) mg/dL Lactic Acid (0.5-2.0) mmol/L Lactic Acid F/U @ 2Hr (0.5-2.0) mmol/L Calcium (8.4-10.2) mg/dL Magnesium (1.6-2.6) mg/dL Total Bilirubin (0.0-1.0) mg/dL Direct Bilirubin (0.0-0.5) mg/dL AST (5-37) U/L ALT (0-40) U/L Alkaline Phosphatase (39-117) U/L Troponin I High Sens (<3.5-35.0) ng/L B-Natriuretic Peptide (<100) pg/mL Total Protein (6.5-8.0) g/dL Albumin (3.5-5.0) g/dL COVID-19 (JORGE) Negative (Negative) COVID-19 Clin Com See Note Influenza Type A (JOSIE) Negative (Negative) Influenza Type B (JOSIE) Negative (Negative) Influenza A & B Note See Note 08/03/21 08/03/21 08/03/21 Range/Units 13:07 13:08 15:51 WBC (4.8-10.8) X10*3/uL RBC (4.60-5.80) X10*6/uL Hgb (14.0-18.0) g/dl Hct (42.0-52.0) % MCV (80.0-98.0) fL MCH (27.0-33.0) pg MCHC (31.0-36.0) g/dl RDW (11.0-16.0) % Plt Count (160-400) X10*3/uL MPV (9.4-12.4) fL Immature Gran % (Auto) (0.0-0.4) % Neut % (Auto) (45-73) % Lymph % (Auto) (20-40) % [place] % (Auto) (2-11) % Eos % (Auto) (0-4) % Baso % (Auto) (0-2) % Lymph # (Auto) (1.2-4.9) X10*3/uL [place] # (Auto) (0.1-1.2) X10*3/uL Eos # (Auto) (0.0-0.4) X10*3/uL Baso # (Auto) (0.0-0.2) X10*3/uL Abs Immat Gran (auto) (0.00-0.03) X10*3/uL Absolute Neuts (auto) (2.0-8.3) x10*3/uL Absolute Nucleated RBC (0.0-0.012) X10*3/uL Nucleated RBC % (auto) (0.0-0.2) /100WBC Smear Tech's Comments PT (9.9-13.0) SEC INR (0.9-1.1) Sodium (135-145) mmol/L Potassium (3.3-5.1) mmol/L Chloride (96-108) mmol/L Carbon Dioxide (22-29) mmol/L Anion Gap (12-20) BUN (9-16) mg/dL Creatinine (0.5-1.4) mg/dL Estim Creat Clear Calc Estimated GFR Random Glucose (60-115) mg/dL Lactic Acid 2.3 H* (0.5-2.0) mmol/L Lactic Acid F/U @ 2Hr 2.0 (0.5-2.0) mmol/L Calcium (8.4-10.2) mg/dL Magnesium (1.6-2.6) mg/dL Total Bilirubin (0.0-1.0) mg/dL Direct Bilirubin (0.0-0.5) mg/dL AST (5-37) U/L ALT (0-40) U/L Alkaline Phosphatase (39-117) U/L Troponin I High Sens (<3.5-35.0) ng/L B-Natriuretic Peptide 1180 H (<100) pg/mL Total Protein (6.5-8.0) g/dL Albumin (3.5-5.0) g/dL COVID-19 (JORGE) (Negative) COVID-19 Clin Com Influenza Type A (JOSIE) (Negative) Influenza Type B (JOSIE) (Negative) Influenza A & B Note 08/03/21 Range/Units 16:00 WBC (4.8-10.8) X10*3/uL RBC (4.60-5.80) X10*6/uL Hgb (14.0-18.0) g/dl Hct (42.0-52.0) % MCV (80.0-98.0) fL MCH (27.0-33.0) pg MCHC (31.0-36.0) g/dl RDW (11.0-16.0) % Plt Count (160-400) X10*3/uL MPV (9.4-12.4) fL Immature Gran % (Auto) (0.0-0.4) % Neut % (Auto) (45-73) % Lymph % (Auto) (20-40) % [place] % (Auto) (2-11) % Eos % (Auto) (0-4) % Baso % (Auto) (0-2) % Lymph # (Auto) (1.2-4.9) X10*3/uL [place] # (Auto) (0.1-1.2) X10*3/uL Eos # (Auto) (0.0-0.4) X10*3/uL Baso # (Auto) (0.0-0.2) X10*3/uL Abs Immat Gran (auto) (0.00-0.03) X10*3/uL Absolute Neuts (auto) (2.0-8.3) x10*3/uL Absolute Nucleated RBC (0.0-0.012) X10*3/uL Nucleated RBC % (auto) (0.0-0.2) /100WBC Smear Tech's Comments PT (9.9-13.0) SEC INR (0.9-1.1) Sodium (135-145) mmol/L Potassium (3.3-5.1) mmol/L Chloride (96-108) mmol/L Carbon Dioxide (22-29) mmol/L Anion Gap (12-20) BUN (9-16) mg/dL Creatinine (0.5-1.4) mg/dL Estim Creat Clear Calc Estimated GFR Random Glucose (60-115) mg/dL Lactic Acid (0.5-2.0) mmol/L Lactic Acid F/U @ 2Hr (0.5-2.0) mmol/L Calcium (8.4-10.2) mg/dL Magnesium (1.6-2.6) mg/dL Total Bilirubin (0.0-1.0) mg/dL Direct Bilirubin (0.0-0.5) mg/dL AST (5-37) U/L ALT (0-40) U/L Alkaline Phosphatase (39-117) U/L Troponin I High Sens 158.1 H* (<3.5-35.0) ng/L B-Natriuretic Peptide (<100) pg/mL Total Protein (6.5-8.0) g/dL Albumin (3.5-5.0) g/dL COVID-19 (JORGE) (Negative) COVID-19 Clin Com Influenza Type A (JOSIE) (Negative) Influenza Type B (JOSIE) (Negative) Influenza A & B Note <Nikki Wilkerson MD - Last Filed: 08/03/21 22:41> ECG Data Attestation: I personally reviewed and interpreted this ECG as follows: <Shalonda Moscoso NP - Last Filed: 08/03/21 16:51> ECG interpretation date: 08/03/21 <Shalonda Moscoso NP - Last Filed: 08/03/21 16:51> ECG interpretation time: 12:48 <Shalonda Moscoso NP - Last Filed: 08/03/21 16:51> Interpretation: AFib with RVR with a rate of 126, normal QRS, normal QT <Shalonda Moscoso NP - Last Filed: 08/03/21 16:51> Procedures Central Line Placement Right IJ: Time Out Performed: Yes <Nikki Wilkerson MD - Last Filed: 08/03/21 22:41> Patient Placed on Monitor/Pulse Ox: Yes <Nikki Wilkerson MD - Last Filed: 08/03/21 22:41> MD Prep: mask, gown and gloves <Nikki Wilkerson MD - Last Filed: 08/03/21 22: 41> Central Line Prep: Chlorhexidine scrub <Nikki Wilkerson MD - Last Filed: 08/03/21 22:41> Local Anesthetic: lidocaine 1% <Nikki Wilkerson MD - Last Filed: 08/03/21 22:41> Amount of anesthesia used (mL): 5 <Nikki Wilkerson MD - Last Filed: 08/03/21 22:41> Ultrasound Used for Placement: Yes <Nikki Wilkerson MD - Last Filed: 08/03/21 22:41> Central Line Lumen Inserted: triple <Nikki Wilkerson MD - Last Filed: 08/03/21 22:41> Post Procedure: sutured in place, good blood return, all ports aspirated, flushed, capped and sterile dressing applied <Nikki Wilkerson MD - Last Filed: 08/03/21 22:41> Post Procedure X-Ray: tip of catheter in good position and no pneumothorax seen <Nikki Wilkerson MD - Last Filed: 08/03/21 22:41> Patient Tolerated Procedure: well and no complications <Nikki Wilkerson MD - Last Filed: 08/03/21 22:41> Complications: none <Nikki Wilkerson MD - Last Filed: 08/03/21 22:41> Discharge Plan Discharge Clinical Impression: A-fib, BONI (acute kidney injury), Pneumonia, Elevated brain natriuretic peptide (BNP) level, Elevated troponin <Shalonda Moscoso NP - Last Filed: 08/03/21 16:51> Patient Disposition: Admitted As Inpatient <Shalonda Moscoso NP - Last Filed: 08/03/21 16:51> Interventions: Admission Worksheet (ED) Last Done: 08/03/21 19:48 <Shalonda Moscoso NP - Last Filed: 08/03/21 16:51> Discharge Date/Time: 08/03/21 19:49 <Shalonda Moscoso NP - Last Filed: 08/03/21 16:51>
[2021-08-03] MEDS: methylPREDNISolone Sod Succ 125 MG/2 ML VIAL IVPUSH (13:10)
[2021-08-03] MEDS: Albuterol/Iprat 2.5/0.5MG 3 ML AMPUL.NEB INHALE (13:10)
[2021-08-03 13:14] LABS: Basophils Percent Auto 0.1 % (0-2); Eosinophils Absolute Auto 0.2 X10*3/uL (0.0-0.4); Eosinophils Percent Auto 1.3 % (0-4); Hematocrit 50.2 % (42.0-52.0); Hemoglobin 16.7 g/dl (14.0-18.0); Imm Gran Abs Auto 0.28 X10*3/uL (0.00-0.03); Imm Gran Pct Auto 2.1 % (0.0-0.4); Lymphocytes Absolute Auto 2.1 X10*3/uL (1.2-4.9); Lymphocytes Percent Auto 15.8 % (20-40); MANUAL DIFF FLAG SCAN; Mean Corpuscular HGB Conc 33.3 g/dl (31.0-36.0); Mean Corpuscular Hemoglobin 32.6 pg (27.0-33.0); Mean Platelet Volume 11.1 fL (9.4-12.4); Monocytes Absolute Auto 1.6 X10*3/uL (0.1-1.2); Monocytes Percent Auto 11.7 % (2-11); Neutrophils Absolute Auto 9.2 x10*3/uL (2.0-8.3); Platelet Count 188 X10*3/uL (160-400); Red Blood Count 5.12 X10*6/uL (4.60-5.80); Red Cell Distribution Width 13.8 % (11.0-16.0); SCAN SMEAR FLAG 1; White Blood Count 13.4 X10*3/uL (4.8-10.8)
[2021-08-03] MEDS: dilTIAZem HCL 50 MG/10 ML VIAL 10 MG IVPUSH (13:15)
[2021-08-03 13:19] LABS: INTERNATIONAL NORM RATIO 1.3 (0.9-1.1); Prothrombin Time 14.7 SEC (9.9-13.0)
[2021-08-03] MEDS: Magnesium Sulfate/H2O 2 GM/50 ML PIGGYBACK IV (13:19)
--- NOTE | 2021-08-03 13:20 | PC.NURSE ---
pt is alert and oriented, skin pwd, respirations even and unlabored, pt reports feeling sob and having chest pressure in the upper/mid chest 10/05, ls diminished, a-fib on the monitor ranging from 115-145, bp stable
[2021-08-03 13:31] LABS: Alanine Aminotransferase 66 U/L (0-40); Albumin Level 4.4 g/dL (3.5-5.0); Alkaline Phosphatase 60 U/L (39-117); Anion Gap 16 (12-20); Aspartate Amino Transferase 37 U/L (5-37); Bilirubin Direct 0.6 mg/dL (0.0-0.5); Bilirubin Total 1.4 mg/dL (0.0-1.0); Blood Urea Nitrogen 28 mg/dL (9-16); Calcium 9.7 mg/dL (8.4-10.2); Carbon Dioxide 23 mmol/L (22-29); Chloride 103 mmol/L (96-108); Creatinine Clr Calc Pharmacy 37.1; Estimated Glomerular Filt Rate 36; Glucose Random 105 mg/dL (60-115); Magnesium 2.4 mg/dL (1.6-2.6); Potassium 4.2 mmol/L (3.3-5.1); Sodium 138 mmol/L (135-145); Total Protein 7.1 g/dL (6.5-8.0)
[2021-08-03 13:33] LABS: COVID-19 Test Negative (Negative); IDNOW Serial# 16C4AD1C; IDNOW Serial# 9DB6401D; Influenza A Negative (Negative); Influenza B2 Negative (Negative)
[2021-08-03 13:36] LABS: B Type Natriuretic Peptide 1180 pg/mL (<100)
[2021-08-03 13:48] LABS: SLIDE REVIEW VERIFIED
[2021-08-03 13:49] LABS: Troponin-I High Sensitivity 159.7 ng/L (<3.5-35.0)
[2021-08-03 13:50] LABS: Lactic Acid 2.3 mmol/L (0.5-2.0)
[2021-08-03] MEDS: dilTIAZem HCL 125 MG in 0.9 % Sodium Chloride 100 ML 10 MG IVCONT (14:53)
--- NOTE | 2021-08-03 14:58 | PHA.MEDREC ---
Pharmacy Consult ? Medication Reconciliation Pharmacy has completed the medication reconciliation. Patient gets pradaxa from [place]. Thanks Thomas
[2021-08-03 15:11] LABS: Reflex Lactate? Lactic Acid Added
[2021-08-03] MEDS: Furosemide 20 MG/2 ML VIAL IVPUSH (16:12)
[2021-08-03] MEDS: guaiFEN/Codeine SF 200/20/10ML 10 ML LIQUID 5 ML PO (16:12)
[2021-08-03] MEDS: cefTRIAXone sodium 1 GM in 0.9 % Sodium Chloride 50 ML IV (16:12)
[2021-08-03 16:28] LABS: Troponin-I High Sensitivity 158.1 ng/L (<3.5-35.0)
--- NOTE | 2021-08-03 16:49 | PC.NURSE ---
CRITICAL TROPONIN 158.1 DR. MACKAY NOTIFIED.
[2021-08-03] MEDS: Azithromycin 500 MG in 0.9 % Sodium Chloride 250 ML 125 MG IV (17:04)
--- NOTE | 2021-08-03 17:05 | PM.IMHP ---
History of Present Illness Date of Service: 08/03/21 Chief Complaint: SOB 76-year-old male with a history of atrial fibrillation on Pradaxa was rate is usually well control with atenolol presents to the emergency room with worsening shortness of breath and chest tightness. He states he recently saw his PCP and a chest x-ray was negative and he was given a course of oral prednisone along with an inhaler. His symptoms essentially did not change however his shortness of breath worsen. Today see states he became short of breath with minimal exertion got lightheaded. This prompted him to seek attention at the ER In ER, dry CT of the chest demonstrated diffusely thick walled airways. There are multifocal predominantly linear bandlike parenchymal opacities noted this could represent bronchopneumonia. He was given ceftriaxone, methylprednisolone, Lasix and an updraft. Ventricular response rate was poorly controlled necessitating the need for Cardizem drip. Review of Systems Review of Systems: Admits to chest tightness Admits to shortness of breath with exertion Denies nausea vomiting diarrhea Denies fever chills [facility] Medical History (HFpEF) heart failure with preserved ejection fraction Biatrial enlargement Chronic atrial fibrillation Chronic kidney disease HTN (hypertension) Tricuspid regurgitation Family History Father No problems noted. Mother HTN (hypertension) Surgical History History of appendectomy History of esophageal dilatation Hx of cataract surgery Hx of inguinal hernia repair Social History Alcohol intake: current Alcohol intake frequency: does not drink Alcohol type: wine Patient Tobacco Use Status: Former Tobacco user Quit Date: 1967 Years Smoked: 10 +/- Use of substances other than those prescribed or required for medical reasons: No Advance Directives: No Advance Directives Information Provided: No Meds Allergies Allergy/AdvReac Type Severity Reaction Status Date / Time No Known Allergies Allergy Verified 04/01/21 12:57 Active Medications: Current Medications Acetaminophen (Acetaminophen 325 Mg Tablet) 650 mg PO Q6H PRN PRN Reason: Pain, Mild (Pain Scale 1-3) Albuterol Sulfate (Albuterol Sulfate 90 Mcg 8 Gm Inhaler) 1 puff INHALE Q4H PRN PRN Reason: Wheezing Atenolol (Atenolol 100 Mg Tablet) 100 mg PO BID [facility]; Protocol Atorvastatin Calcium (Atorvastatin Calcium 10 Mg Tablet) 10 mg PO DAILY [facility] Azithromycin (Azithromycin 500 Mg Tablet) 500 mg PO Q24H [facility] Stop: 08/07/21 18:01 Dabigatran (Dabigatran Etexilate Mesylate 150 Mg Capsule) 150 mg PO BID [facility] Furosemide (Furosemide 20 Mg Tablet) 20 mg PO DAILY [facility]; Protocol Diltiazem HCl 125 mg/ Sodium (Chloride) 125 mls @ 0 mls/hr IVCONT .Q0M [facility]; Protocol Last Titration: 08/03/21 15:33 Dose: 15 mg/hr, 15 mls/hr Documented by: Azithromycin 500 mg/ Sodium (Chloride) 250 mls @ 125 mls/hr IV ONCE ONE Stop: 08/03/21 17:38 Last Admin: 08/03/21 17:04 Dose: 125 mls/hr Documented by: Ceftriaxone Sodium 1 gm/ (Sodium Chloride) 50 mls @ 100 mls/hr IV Q24H [facility] Latanoprost (Latanoprost 0.005 % Ophth Amanda 2.5 Ml Drops) 1 drop EYE-BOTH BEDTIME [facility] Levothyroxine Sodium (Levothyroxine Sodium 100 Mcg Tablet) 100 mcg PO DAILY@0600 [facility] Magnesium Hydroxide (Milk Of Magnesia 30 Ml Oral.Susp) 30 ml PO DAILY PRN PRN Reason: Constipation Melatonin (Melatonin 3 Mg Tablet) 6 mg PO BEDTIME PRN PRN Reason: Insomnia Omeprazole (Omeprazole 20 Mg Capsule.Dr) 20 mg PO DAILY@0630 [facility] Pharmacy Consult (Consult Rx Perform Med Rec) 1 each MISCELLANE ONCE PRN PRN Reason: Consult order Sodium Chloride (0.9 % Sodium Chloride Flush 3 Ml Syringe) 3 ml IVFLUSH QSHIFT [facility] Home Medications Medication Instructions Recorded Confirmed Last Taken Type atorvastatin 10 mg tablet 10 mg PO DAILY 04/05/20 08/03/21 08/03/21 History furosemide 20 mg tablet 20 mg PO DAILY 04/05/20 08/03/21 08/03/21 History latanoprost 0.005 % eye drops 1 drp OPHTHALMIC (EYE) BEDTIME 04/05/20 08/03/21 08/02/21 History levothyroxine 100 mcg tablet 100 mcg PO DAILY 04/05/20 08/03/21 08/03/21 History omeprazole 20 mg capsule,delayed 20 mg PO DAILY 04/05/20 08/03/21 08/03/21 History release dabigatran etexilate 150 mg 150 mg PO BID 10/07/20 08/03/21 08/03/21 History capsule (Pradaxa) albuterol sulfate 90 mcg/actuation 1 puff INHALATION Q4H PRN 08/03/21 08/03/21 08/03/21 History aerosol inhaler Physical Exam Vital Signs and Narrative: Vital Signs: Last Vital Signs Temp 95.3 F L 08/03/21 12:28 Pulse 138 H 08/03/21 15:34 Resp 18 08/03/21 15:34 BP 101/76 08/03/21 15:34 Pulse Ox 99 08/03/21 15:34 BMI result Body Mass Index 28.0 Const: Other: Awake alert oriented x3 no acute distress. Breathing comfortably on the stretcher Neck: Other: Neck veins flat Resp: Other: Diminished at bases with fine rhonchi and expiratory wheezes throughout lower lobes Cardio: Other: Irregularly irregular; tachycardic. No S4; positive S1-S2; no S3 murmurs rubs or gallops GI: Other: Soft nontender nondistended normoactive bowel sounds. No acute peritoneal signs noted Neuro: Other: Cranial nerves 2-12 grossly intact as tested. Motor is 5/5 in all extremities. Sensation is intact. Cognition appropriate. Gait not observed Extrem: Other: No edema bilaterally Results Labs CBC and Chem 7: 08/03/21 13:07 08/03/21 13:07 Labs: Laboratory Results - last 24 hr 08/03/21 08/03/21 08/03/21 13:07 13:07 13:07 MCV 98.0 MCH 32.6 MCHC 33.3 RDW 13.8 Plt Count 188 MPV 11.1 Immature Gran % (Auto) 2.1 H Neut % (Auto) 69.0 Lymph % (Auto) 15.8 L [place] % (Auto) 11.7 H Eos % (Auto) 1.3 Baso % (Auto) 0.1 Lymph # (Auto) 2.1 [place] # (Auto) 1.6 H Eos # (Auto) 0.2 Baso # (Auto) 0.0 Abs Immat Gran (auto) 0.28 H Absolute Neuts (auto) 9.2 H Absolute Nucleated RBC 0.000 Nucleated RBC % (auto) 0.0 Smear Tech's Comments VERIFIED PT INR Anion Gap 16 Estim Creat Clear Calc 37.1 Estimated GFR 36 Random Glucose 105 Lactic Acid Lactic Acid F/U @ 2Hr Calcium 9.7 Magnesium 2.4 Total Bilirubin 1.4 H Direct Bilirubin 0.6 H AST 37 D ALT 66 H Alkaline Phosphatase 60 D Troponin I High Sens 159.7 H* B-Natriuretic Peptide Total Protein 7.1 Albumin 4.4 COVID-19 (JORGE) COVID-19 Clin Com Influenza Type A (JOSIE) Influenza Type B (JOSIE) Influenza A & B Note 08/03/21 08/03/21 08/03/21 13:07 13:07 13:07 MCV MCH MCHC RDW Plt Count MPV Immature Gran % (Auto) Neut % (Auto) Lymph % (Auto) [place] % (Auto) Eos % (Auto) Baso % (Auto) Lymph # (Auto) [place] # (Auto) Eos # (Auto) Baso # (Auto) Abs Immat Gran (auto) Absolute Neuts (auto) Absolute Nucleated RBC Nucleated RBC % (auto) Smear Tech's Comments PT 14.7 H INR 1.3 H Anion Gap Estim Creat Clear Calc Estimated GFR Random Glucose Lactic Acid Lactic Acid F/U @ 2Hr Calcium Magnesium Total Bilirubin Direct Bilirubin AST ALT Alkaline Phosphatase Troponin I High Sens B-Natriuretic Peptide Total Protein Albumin COVID-19 (JORGE) Negative COVID-19 Clin Com See Note Influenza Type A (JOSIE) Negative Influenza Type B (JOSIE) Negative Influenza A & B Note See Note 08/03/21 08/03/21 08/03/21 13:07 13:08 15:51 MCV MCH MCHC RDW Plt Count MPV Immature Gran % (Auto) Neut % (Auto) Lymph % (Auto) [place] % (Auto) Eos % (Auto) Baso % (Auto) Lymph # (Auto) [place] # (Auto) Eos # (Auto) Baso # (Auto) Abs Immat Gran (auto) Absolute Neuts (auto) Absolute Nucleated RBC Nucleated RBC % (auto) Smear Tech's Comments PT INR Anion Gap Estim Creat Clear Calc Estimated GFR Random Glucose Lactic Acid 2.3 H* Lactic Acid F/U @ 2Hr 2.0 Calcium Magnesium Total Bilirubin Direct Bilirubin AST ALT Alkaline Phosphatase Troponin I High Sens B-Natriuretic Peptide 1180 H Total Protein Albumin COVID-19 (JORGE) COVID-19 Clin Com Influenza Type A (JOSIE) Influenza Type B (JOSIE) Influenza A & B Note 08/03/21 16:00 MCV MCH MCHC RDW Plt Count MPV Immature Gran % (Auto) Neut % (Auto) Lymph % (Auto) [place] % (Auto) Eos % (Auto) Baso % (Auto) Lymph # (Auto) [place] # (Auto) Eos # (Auto) Baso # (Auto) Abs Immat Gran (auto) Absolute Neuts (auto) Absolute Nucleated RBC Nucleated RBC % (auto) Smear Tech's Comments PT INR Anion Gap Estim Creat Clear Calc Estimated GFR Random Glucose Lactic Acid Lactic Acid F/U @ 2Hr Calcium Magnesium Total Bilirubin Direct Bilirubin AST ALT Alkaline Phosphatase Troponin I High Sens 158.1 H* B-Natriuretic Peptide Total Protein Albumin COVID-19 (JORGE) COVID-19 Clin Com Influenza Type A (JOSIE) Influenza Type B (JOSIE) Influenza A & B Note Imaging Radiologist's Impressions: Impressions Chest X-Ray 08/03/21 14:15 IMPRESSION: Lingular atelectasis. Chest CT 08/03/21 15:21 IMPRESSION: 1. Diffusely thick-walled airways. 2. Multifocal predominantly linear bandlike parenchymal opacities. Subsegmental atelectasis favored but cannot exclude bronchopneumonia. 3. Small volume of loculated ascites overlying the liver. This is abnormal and further evaluation of the abdomen is advised. Fleischner guidelines were followed. Assessment and Plan (1) Chronic atrial fibrillation: Status: Acute (2) (HFpEF) heart failure with preserved ejection fraction: Status: Acute (3) BONI (acute kidney injury): Status: Acute (4) HTN (hypertension): Status: Acute Plan 76-year-old male with known chronic atrial fibrillation presents with complaints of shortness of breath on exertion. Dry CT of the chest suspicious for bronchopneumonia. Ventricular response rate in the 130s Cardizem drip initiated 1. Chronic atrial fibrillation with rapid ventricular response -continue Cardizem drip as ordered. Titrate to rate control -continue Pradaxa -troponins elevated likely secondary to demand; 2nd troponin essentially unchanged. Will repeat in 4 hours -2D echo in a.m. along with cardiology consult 2. HFp EF (diastolic) -given dose of IV Lasix in ER; will continue p.o. Lasix -trend BNP -echo in a.m. 3. Acute kidney injury -mild increased from baseline -follow renals/divalents in am 4. Bronchopneumonia -IV ceftriaxone p.o. azithromycin -Xopenex nebs p.r.n. -titrate O2 to maintain sats greater than 92% Pradaxa Full code Patient will require at least 2 midnights going forward for IV Cardizem drip to stabilize ventricular response rate and treatment of his pneumonia. Will also need trending of his cardiac enzymes. This cannot be achieved and a lesser acute setting Quality Stroke Does the patient have a stroke diagnosis?: No VTE Prior VTE?: No VTE Risk Level:: Medical - moderate - high VTE Device Contraindication: Treatment Not Indicated VTE Drug Contraindication: N/A - Med Ordered
--- NOTE | 2021-08-03 17:41 | ECG_ITS ---
Test Reason : BRADYCARDIA Blood Pressure : / mmHG Vent. Rate : 066 BPM Atrial Rate : 000 BPM P-R Int : 000 ms QRS Dur : 072 ms QT Int : 412 ms P-R-T Axes : 000 019 -04 degrees QTc Int : 431 ms Atrial fibrillation Cannot rule out Anterior infarct , age undetermined Abnormal ECG When compared with ECG of 03-AUG-2021 12:48, Vent. rate has decreased BY 60 BPM Nonspecific T wave abnormality no longer evident in Lateral leads Referred By: Kalpesh Garza Electronically Signed By:ANDREY CASTRO MD
--- NOTE | 2021-08-03 17:45 | PC.NURSE ---
PT'S HEART RATE DROPPED TO 32-37 WITH A LONG PAUSE THEN RIGHT BACK TO THE 80'S P THEN RIGHT BACK INTO 50-40, PT VERY DIAPHORETIC/LIGHTHEADED/DIZZZY/NAUSEA/ LOW BP 70/52, PT ON PACER PADS. DR MACKAY AT BEDSIDE PT GIVEN GLUCAGEN 1MG AT 1801, CAlcium gluconate 2gm running over 15min per dr mackay's verbal order and 500ml of ns also running wide open, got zofran 4mg x2
[2021-08-03] MEDS: Calcium Gluconate/NaCl,Iso-Osm 2 GM/100 ML PLAST..BAG IV (17:57)
[2021-08-03 18:03] LABS: Glucose, Whole Blood 179 mg/dL (60-115)
[2021-08-03] MEDS: ondansetron HCL 4 MG/2 ML VIAL IVPUSH ×2 (18:09→19:15)
--- NOTE | 2021-08-03 18:22 | PC.NURSE ---
dopamine drip running started at 5mcg/kg/h at 1815 now increased to 10mcg/kg/h bp trending down 87/67 still a-fib on the moniotr, dr cardona at bedside attempting a central line pt reports feeling better, not diaphoretic at this time
--- NOTE | 2021-08-03 18:27 | PC.NURSE ---
pt is starting not feel well again, dry heaving, dry/cool to the touch/face appears slightly puffy and red in the color
[2021-08-03] MEDS: Lidocaine HCl 2 % MPF 5 ML VIAL SUBCUT (18:28)
--- NOTE | 2021-08-03 18:30 | PC.NURSE ---
compazine give pt continuos on having nausea and dry heaving
--- NOTE | 2021-08-03 18:34 | PC.NURSE ---
dopamine drip decrease back to 5mcg/kg/h hr 130's bp holding 134/87
--- NOTE | 2021-08-03 18:37 | PC.NURSE ---
dopamine drip currently on stop per dr hurd verbal order hr 132, bp 137/42
--- NOTE | 2021-08-03 18:49 | P.CONCA_ITS ---
History of Present Illness History of Present Illness Date of Service: 08/03/21 Requesting physician: Kalpesh Garza Chief complaint: symptomatic bradycardia Narrative: 76-year-old gentleman with known Afib on atenolol 100 mg BID. He is presenting with bronchopneumonia and was noted to have Afb with RVR and was started on cardizem gtt which was maximized as he had poor rate control. He was noted to be bradycardic in 30s with hypotension and we were called for co nsult. Cardizem gtt was stopped and patient was given calcium gluconate heart rate. He was started on peripheral dopamine with improvement in HR and BP. ER placed a triple lumen catheter. He was saying that he was short of breath for few days and finally decided to come to the emergency department. He has been diagnosed with pneumonia as mentioned started on antibiotics. No dizziness at home. No chest pain or shortness of breath. Appears he has chronic atrial fibrillation and has been on atenolol. [facility] Past Medical History Medical History (HFpEF) heart failure with preserved ejection fraction Biatrial enlargement Chronic atrial fibrillation Chronic kidney disease HTN (hypertension) Tricuspid regurgitation Family History Family History Father No problems noted. Mother HTN (hypertension) Surgical History Surgical History History of appendectomy History of esophageal dilatation Hx of cataract surgery Hx of inguinal hernia repair Social History Social History Alcohol intake: current Alcohol intake frequency: does not drink Alcohol type: wine Patient Tobacco Use Status: Former Tobacco user Quit Date: 1967 Years Smoked: 10 +/- Meds Allergies Allergy/AdvReac Type Severity Reaction Status Date / Time No Known Allergies Allergy Verified 04/01/21 12:57 Active Medications: Current Medications Acetaminophen (Acetaminophen 325 Mg Tablet) 650 mg PO Q6H PRN PRN Reason: Pain, Mild (Pain Scale 1-3) Albuterol Sulfate (Albuterol Sulfate 90 Mcg 8 Gm Inhaler) 1 puff INHALE Q4H PRN PRN Reason: Wheezing Atorvastatin Calcium (Atorvastatin Calcium 10 Mg Tablet) 10 mg PO DAILY [facility] Azithromycin (Azithromycin 500 Mg Tablet) 500 mg PO Q24H [facility] Stop: 08/07/21 18:01 Dabigatran (Dabigatran Etexilate Mesylate 150 Mg Capsule) 150 mg PO BID [facility] Ceftriaxone Sodium 1 gm/ (Sodium Chloride) 50 mls @ 100 mls/hr IV Q24H [facility] Calcium Gluconate (Calcium Gluconate) 2 gm in 100 mls @ 50 mls/hr IV ONCE ONE Stop: 08/03/21 19:56 Dopamine HCl/Dextrose () 400 mg in 250 mls @ 0 mls/hr IVCONT .Q0M [facility]; Protocol Latanoprost (Latanoprost 0.005 % Ophth Amanda 2.5 Ml Drops) 1 drop EYE-BOTH BEDTIME [facility] Levothyroxine Sodium (Levothyroxine Sodium 100 Mcg Tablet) 100 mcg PO DAILY@0600 [facility] Magnesium Hydroxide (Milk Of Magnesia 30 Ml Oral.Susp) 30 ml PO DAILY PRN PRN Reason: Constipation Melatonin (Melatonin 3 Mg Tablet) 6 mg PO BEDTIME PRN PRN Reason: Insomnia Omeprazole (Omeprazole 20 Mg Capsule.) 20 mg PO DAILY@0630 [facility] Pharmacy Consult (Consult Rx Perform Med Rec) 1 each MISCELLANE ONCE PRN PRN Reason: Consult order Sodium Chloride (0.9 % Sodium Chloride Flush 3 Ml Syringe) 3 ml IVFLUSH QSHIFT [facility] Home Medications Medication Instructions Recorded Confirmed Last Taken Type atorvastatin 10 mg tablet 10 mg PO DAILY 04/05/20 08/03/21 08/03/21 History furosemide 20 mg tablet 20 mg PO DAILY 04/05/20 08/03/21 08/03/21 History latanoprost 0.005 % eye drops 1 drp OPHTHALMIC (EYE) BEDTIME 04/05/20 08/03/21 08/02/21 History levothyroxine 100 mcg tablet 100 mcg PO DAILY 04/05/20 08/03/21 08/03/21 History omeprazole 20 mg capsule,delayed 20 mg PO DAILY 04/05/20 08/03/21 08/03/21 Hi story release dabigatran etexilate 150 mg 150 mg PO BID 10/07/20 08/03/21 08/03/21 History capsule (Pradaxa) albuterol sulfate 90 mcg/actuation 1 puff INHALATION Q4H PRN 08/03/21 08/03/21 08/03/21 History aerosol inhaler Physical Exam Vital Signs: Vital Signs: Last Vital Signs Temp 95.3 F L 08/03/21 12:28 Pulse 132 H 08/03/21 18:41 Resp 20 08/03/21 18:41 BP 128/99 H 08/03/21 18:41 Pulse Ox 100 08/03/21 18:30 BMI result Body Mass Index 28.0 GENERAL APPEARANCE: in no acute distress, pleasant. NECK: no carotid bruit, Right internal jugular triple-lumen catheter in place. SKIN: no suspicious lesions, warm and dry. HEART: no murmurs, irregular rate and rhythm. LUNGS: clear to auscultation anteriorly. ABDOMEN: soft, nontender. EXTREMITIES: no edema. PERIPHERAL PULSES: equal. NEUROLOGIC: No gross deficits, AAO X 3 Objective Labs and Meds Result diagrams: 08/03/21 13:07 08/03/21 13:07 Lab results: Laboratory Results - last 24 hr 08/03/21 08/03/21 08/03/21 13:07 13:07 13:07 WBC 13.4 H RBC 5.12 Hgb 16.7 Hct 50.2 MCV 98.0 MCH 32.6 MCHC 33.3 RDW 13.8 Plt Count 188 MPV 11.1 Immature Gran % (Auto) 2.1 H Neut % (Auto) 69.0 Lymph % (Auto) 15.8 L [place] % (Auto) 11.7 H Eos % (Auto) 1.3 Baso % (Auto) 0.1 Lymph # (Auto) 2.1 [place] # (Auto) 1.6 H Eos # (Auto) 0.2 Baso # (Auto) 0.0 Abs Immat Gran (auto) 0.28 H Absolute Neuts (auto) 9.2 H Absolute Nucleated RBC 0.000 Nucleated RBC % (auto) 0.0 Smear Tech's Comments VERIFIED PT INR Sodium 138 Potassium 4.2 Chloride 103 Carbon Dioxide 23 Anion Gap 16 BUN 28 H D Creatinine 1.84 H Estim Creat Clear Calc 37.1 Estimated GFR 36 POC Glucose Random Glucose 105 Lactic Acid Lactic Acid F/U @ 2Hr Calcium 9.7 Magnesium 2.4 Total Bilirubin 1.4 H Direct Bilirubin 0.6 H AST 37 D ALT 66 H Alkaline Phosphatase 60 D Troponin I High Sens 159.7 H* B-Natriuretic Peptide Total Protein 7.1 Albumin 4.4 COVID-19 (JORGE) COVID-19 Clin Com Influenza Type A ([facility]OSIE) Influenza Type B (JOSIE) Influenza A & B Note 08/03/21 08/03/21 08/03/21 13:07 13:07 13:07 WBC RBC Hgb Hct MCV MCH MCHC RDW Plt Count MPV Immature Gran % (Auto) Neut % (Auto) Lymph % (Auto) [place] % (Auto) Eos % (Auto) Baso % (Auto) Lymph # (Auto) [place] # (Auto) Eos # (Auto) Baso # (Auto) Abs Immat Gran (auto) Absolute Neuts (auto) Absolute Nucleated RBC Nucleated RBC % (auto) Smear Tech's Comments PT 14.7 H INR 1.3 H Sodium Potassium Chloride Carbon Dioxide Anion Gap BUN Creatinine Estim Creat Clear Calc Estimated GFR POC Glucose Random Glucose Lactic Acid Lactic Acid F/U @ 2Hr Calcium Magnesium Total Bilirubin Direct Bilirubin AST ALT Alkaline Phosphatase Troponin I High Sens B-Natriuretic Peptide Total Protein Albumin COVID-19 (JORGE) Negative COVID-19 Clin Com See Note Influenza Type A (JOSIE) Negative Influenza Type B (JOSIE) Negative Influenza A & B Note See Note 08/03/21 08/03/21 08/03/21 13:07 13:08 15:51 WBC RBC Hgb Hct MCV MCH MCHC RDW Plt Count MPV Immature Gran % (Auto) Neut % (Auto) Lymph % (Auto) [place] % (Auto) Eos % (Auto) Baso % (Auto) Lymph # (Auto) [place] # (Auto) Eos # (Auto) Baso # (Auto) Abs Immat Gran (auto) Absolute Neuts (auto) Absolute Nucleated RBC Nucleated RBC % (auto) Smear Tech's Comments PT INR Sodium Potassium Chloride Carbon Dioxide Anion Gap BUN Creatinine Estim Creat Clear Calc Estimated GFR POC Glucose Random Glucose Lactic Acid 2.3 H* Lactic Acid F/U @ 2Hr 2.0 Calcium Magnesium Total Bilirubin Direct Bilirubin AST ALT Alkaline Phosphatase Troponin I High Sens B-Natriuretic Peptide 1180 H Total Protein Albumin COVID-19 (JORGE) COVID-19 Clin Com Influenza Type A (JOSIE) Influenza Type B (JOSIE) Influenza A & B Note 08/03/21 08/03/21 16:00 17:59 WBC RBC Hgb Hct MCV MCH MCHC RDW Plt Count MPV Immature Gran % (Auto) Neut % (Auto) Lymph % (Auto) [place] % (Auto) Eos % (Auto) Baso % (Auto) Lymph # (Auto) [place] # (Auto) Eos # (Auto) Baso # (Auto) Abs Immat Gran (auto) Absolute Neuts (auto) Absolute Nucleated RBC Nucleated RBC % (auto) Smear Tech's Comments PT INR Sodium Potassium Chloride Carbon Dioxide Anion Gap BUN Creatinine Estim Creat Clear Calc Estimated GFR POC Glucose 179 H Random Glucose Lactic Acid Lactic Acid F/U @ 2Hr Calcium Magnesium Total Bilirubin Direct Bilirubin AST ALT Alkaline Phosphatase Troponin I High Sens 158.1 H* B-Natriuretic Peptide Total Protein Albumin COVID-19 (JORGE) COVID-19 Clin Com Influenza Type A (JOSIE) Influenza Type B (JOSIE) Influenza A & B Note Imaging Radiologist's impression: Impressions Chest X-Ray 08/03/21 14:15 IMPRESSION: Lingular atelectasis. Chest CT 08/03/21 15:21 IMPRESSION: 1. Diffusely thick-walled airways. 2. Multifocal predominantly linear bandlike parenchymal opacities. Subsegmental atelectasis favored but cannot exclude bronchopneumonia. 3. Small volume of loculated ascites overlying the liver. This is abnormal and further evaluation of the abdomen is advised. Fleischner guidelines were followed. Assessment and Plan (1) Tachy-gabi syndrome: Status: Acute Plan 76 male with chronic Afib on pradaxa presenting with PNA and Afib with RVR. He has atenolol 100 mg BID as home med and has BONI. Atenolol has renal bruno arance. After calcium gluconate he has been stable. Stop the dopamine. Keep pacer pads on. Will need permanent pacemaker. Would tolerate some tachycardia for now unless patient is symptomatic. In that case would use low dose beta blockers 2.5 mg IV push. Ideally would avoid AV jackie blockers till PPM placed. Hold pradaxa as he will need pacemaker. Monitor in ICU because he was fairly symptomatic with bradycardia and would be quite challenging to manage on the floors in case he has recurrence of the bradycardia. Thank you for allowing me to participate in the care of your patient. Please fe el free to contact me if you have any questions. Procedures Date of Service Date of Service: 08/03/21
--- NOTE | 2021-08-03 19:00 | PC.NURSE ---
faxed over the verbal medication list that was signed by dr hernandez to pharmacy
[2021-08-03] MEDS: Prochlorperazine Edisylate 10 MG/2 ML VIAL IV (19:15)
--- NOTE | 2021-08-03 19:33 | W.PM.CCCN ---
History of Present Illness Data of Consult Service Date: 08/03/21 Requesting physician: Sunil Mays Primary Care Provider: Maykel Levin MD [facility] Reason for consult: Hypotension and bradycardia The patient is a 76-year-old male with past medical history atrial fibrillation (on Pradaxa and atenolol),? congestive heart failure, Tricuspid regurgitation, chronic kidney disease and hypertension? who presented to the emergency room? who presented to the emergency room with complaints of shortness of breath.? He stated that he recently saw his primary care provider and was given a course of oral prednisone? and rescue inhaler. ?In the emergency room patient? was noted to have a multifocal bronchopneumonia,? was given ceftriaxone,? azithromycin, Solu-Medrol, Lasix and updraft and? admitted into? hospital medicine service.? ? Patient was also noted to be on atrial fibrillation with RVR(130s)? started on Cardizem drip with poor rate control,? later he became bradycardic to 30s with? hypotension to systolics of 70s.? He was given calcium gluconate, Glucagon,? and started on dopamine drip.? ? Patient is being? transferred to ICU? due to requiring vasopressor support Review of Systems Constitutional: Constitutional: Denies fever(s), Denies headache(s), Denies poor appetite and Denies weakness Eyes: Eyes: Denies change in vision ENT: Denies headache(s) Cardiovascular: Cardiovascular: Denies chest pain, Denies palpitations and Reports dyspnea Respiratory: Respiratory: Denies cough and Reports dyspnea Gastrointestinal: Gastrointestinal: Denies nausea and Denies vomiting Musculoskeletal: Musculoskeletal: Denies myalgias Neurologic: Denies headache(s) and Denies weakness Endocrine: Endocrine: Denies palpitations [facility] Past Medical History Medical History (HFpEF) heart failure with preserved ejection fraction Biatrial enlargement Chronic atrial fibrillation Chronic kidney disease HTN (hypertension) Tricuspid regurgitation Family History Family History Father No problems noted. Mother HTN (hypertension) Surgical History Surgical History History of appendectomy History of esophageal dilatation Hx of cataract surgery Hx of inguinal hernia repair Social History Social History Alcohol intake: current Alcohol intake frequency: does not drink Alcohol type: wine Patient Tobacco Use Status: Former Tobacco user Quit Date: 1967 Years Smoked: 10 +/- Meds Allergies Allergy/AdvReac Type Severity Reaction Status Date / Time No Known Allergies Allergy Verified 04/01/21 12:57 Active Medications: Current Medications Acetaminophen (Acetaminophen 325 Mg Tablet) 650 mg PO Q6H PRN PRN Reason: Pain, Mild (Pain Scale 1-3) Albuterol Sulfate (Albuterol Sulfate 90 Mcg 8 Gm Inhaler) 1 puff INHALE Q4H PRN PRN Reason: Wheezing Atorvastatin Calcium (Atorvastatin Calcium 10 Mg Tablet) 10 mg PO DAILY [facility] Azithromycin (Azithromycin 500 Mg Tablet) 500 mg PO Q24H [facility] Stop: 08/07/21 18:01 Dabigatran (Dabigatran Etexilate Mesylate 150 Mg Capsule) 150 mg PO BID [facility] Ceftriaxone Sodium 1 gm/ (Sodium Chloride) 50 mls @ 100 mls/hr IV Q24H [facility] Calcium Gluconate (Calcium Gluconate) 2 gm in 100 mls @ 50 mls/hr IV ONCE ONE Stop: 08/03/21 19:56 Dopamine HCl/Dextrose () 400 mg in 250 mls @ 0 mls/hr IVCONT .Q0M [facility]; Protocol Latanoprost (Latanoprost 0.005 % Ophth Amanda 2.5 Ml Drops) 1 drop EYE-BOTH BEDTIME [facility] Levothyroxine Sodium (Levothyroxine Sodium 100 Mcg Tablet) 100 mcg PO DAILY@0600 [facility] Magnesium Hydroxide (Milk Of Magnesia 30 Ml Oral.Susp) 30 ml PO DAILY PRN PRN Reason: Constipation Melatonin (Melatonin 3 Mg Tablet) 6 mg PO BEDTIME PRN PRN Reason: Insomnia Omeprazole (Omeprazole 20 Mg Capsule.Dr) 20 mg PO DAILY@0630 [facility] Pharmacy Consult (Consult Rx Perform Med Rec) 1 each MISCELLANE ONCE PRN PRN Reason: Consult order Sodium Chloride (0.9 % Sodium Chloride Flush 3 Ml Syringe) 3 ml IVFLUSH QSHIFT [facility] Home Medications Medication Instructions Recorded Confirmed Last Taken Type atorvastatin 10 mg tablet 10 mg PO DAILY 04/05/20 08/03/21 08/03/21 History furosemide 20 mg tablet 20 mg PO DAILY 04/05/20 08/03/21 08/03/21 History latanoprost 0.005 % eye drops 1 drp OPHTHALMIC (EYE) BEDTIME 04/05/20 08/03/21 08/02/21 History levothyroxine 100 mcg tablet 100 mcg PO DAILY 04/05/20 08/03/21 08/03/21 History omeprazole 20 mg capsule,delayed 20 mg PO DAILY 04/05/20 08/03/21 08/03/21 History release dabigatran etexilate 150 mg 150 mg PO BID 10/07/20 08/03/21 08/03/21 History capsule (Pradaxa) albuterol sulfate 90 mcg/actuation 1 puff INHALATION Q4H PRN 08/03/21 08/03/21 08/03/21 History aerosol inhaler Physical Exam Vital Signs: Vital Signs: Last Vital Signs Temp 95.3 F L 08/03/21 12:28 Pulse 126 H 08/03/21 19:04 Resp 20 08/03/21 18:41 BP 120/75 08/03/21 19:04 Pulse Ox 100 08/03/21 18:30 BMI result Body Mass Index 28.0 Constitutional: Alert, in no distress. Sitting comfortably on the hospital bed. Mental Status: Oriented to person, place and time. Head: Normocephalic. Eyes: Pupils are equal, round and reactive to light. Extraocular muscles intact. Ear, Nose and Throat: Oropharynx clear, mucous membranes moist. Ears and nose without masses, lesions or deformities. Trachea midline. Neck: Supple, Full range of motion. Respiratory: Lungs with Rhonchi throughoutl lung osullivan.? Minor increased work of breathing.?Satting 100% on 2 L via nasal canula (for patient comfort) Cardiovascular: S1 S2 regular. No murmurs, rubs or gallops. Gastrointestinal: Abdomen soft, non-tender, non-distended. Normal bowel sounds. No pulsatile mass. No hepatosplenomegaly. Genitourinary: No costovertebral angle tenderness. Neurologic: Cranial nerves II-XII grossly intact. No focal neurological deficits. Moves all extremities spontaneously. Sensation intact bilaterally. Skin: No rashes or lesions. No petechiae or purpura. 1er extremity.? Trace pitting edema lower extremity. Musculoskeletal: No cyanosis or clubbing. No gross deformities. Normal range of motion. Heme/Lymphatics/Immun: Palpation of neck reveals no swelling or tenderness of neck nodes. Psychiatric: Normal mood and affect Results Labs CBC & Chem 7: 08/03/21 13:07 08/03/21 13:07 Labs: Short CBC 08/03/21 Range/Units 13:07 WBC 13.4 H (4.8-10.8) X10*3/uL Hgb 16.7 (14.0-18.0) g/dl Hct 50.2 (42.0-52.0) % Plt Count 188 (160-400) X10*3/uL BMP 08/03/21 13:07 Sodium 138 Potassium 4.2 Chloride 103 Carbon Dioxide 23 BUN 28 H D Creatinine 1.84 H Calcium 9.7 Liver Function 08/03/21 Range/Units 13:07 Total Bilirubin 1.4 H (0.0-1.0) mg/dL Direct Bilirubin 0.6 H (0.0-0.5) mg/dL AST 37 D (5-37) U/L ALT 66 H (0-40) U/L Alkaline Phosphatase 60 D (39-117) U/L Albumin 4.4 (3.5-5.0) g/dL Assessment and Plan (1) Tachy-gabi syndrome: Status: Acute (2) Acute exacerbation of congestive heart failure: Status: Acute (3) A-fib: Status: Acute (4) (HFpEF) heart failure with preserved ejection fraction: Status: Acute (5) Pneumonia: Status: Acute (6) Elevated brain natriuretic peptide (BNP) level: Status: Acute (7) BONI (acute kidney injury): Status: Acute (8) Chronic atrial fibrillation: Status: Acute (9) HTN (hypertension): Status: Acute Plan Plan: Neuro: No acute issues? Cardiac:?? ?Tachy-gabi syndrome:? patient?s? pulse dropped to 30s and heart rate to systolic of 70s while on Cardizem drip.? Received glucagon, calcium gluconate, and was started on dopamine drip.? On admission to the icu dopamine drip has been turned off. ? No longer requiring vasopressor support.?Cardiology involved in case, also recomended possible thoracic consult for pacemaker. Will review need for pacemanker tomorrow ?Atrial fibrillation with RVR:? will give patient? a dose of digoxin. Congestive heart failure exacerbation- ? BNP is elevated to 1180.? will start diuresing. Echo in the am ?Elevated lactic-? this is likely due to AFib RVR and Congestive heart failure exacerbation.? No evidence of? severe sepsis Pulmonary:?? Acute hypoxic? respiratory failure- ? patient became hypoxic while in the emergency room requiring non-rebreather,? on admission? to ICU able to put patient on 2 L of O2 via nasal cannula, satting 100%.? Patient states he feels more comfortable with the oxygen on. ? Will wean off as tolerated Renal:? ?CKD/ BONI- ? due to underlying congestive heart failure will avoid giving extra fluids are now. Patient is being diuresed now will closely monitor? urine output and? creatinine? Endo:? No acute issues.?? GI:? No acute issues.?? Heme/Onc:? No acute issues. ID:? pneumonia-? being covered ceftriaxone and azithromycin.? Psych:? No acute issues. Miscellaneous:? No acute issues. Prophylaxis:? Pradaxa ?CODE: ? full code ?Case discussed with attending Dr Mays Critical Care Time Critical Care Time (minutes): 60
[2021-08-03] MEDS: Digoxin 0.5 MG/2 ML AMPUL 0.125 MG IVPUSH (20:33)
[2021-08-03] MEDS: Furosemide 40 MG/4 ML VIAL IVPUSH (20:33)
[2021-08-03] MEDS: Digoxin 0.5 MG/2 ML AMPUL 0.25 MG IVPUSH ×2 (21:40→22:32)
[2021-08-03] MEDS: Dabigatran Etexilate Mesylate 150 MG CAPSULE PO (22:00)
[2021-08-03 22:26] LABS: Troponin-I High Sensitivity 181.7 ng/L (<3.5-35.0)
[2021-08-03] MEDS: Esmolol HCl/NaCl Iso 2,500 MG/250 ML IV.SOLN 25.86 MG IVCONT (22:38)
[2021-08-03 23:37] LABS: Anion Gap 18 (12-20); Blood Urea Nitrogen 27 mg/dL (9-16); Calcium 9.3 mg/dL (8.4-10.2); Carbon Dioxide 20 mmol/L (22-29); Chloride 103 mmol/L (96-108); Creatinine Clr Calc Pharmacy 38.1; Estimated Glomerular Filt Rate 37; Glucose Random 203 mg/dL (60-115); Magnesium 2.2 mg/dL (1.6-2.6); Phosphorus 3.5 mg/dL (2.7-4.5); Potassium 4.1 mmol/L (3.3-5.1); Sodium 137 mmol/L (135-145)
[2021-08-04] VITALS (52 sets, daily range): BP systolic 52–167; BP diastolic 33–133; PULSE 70–157; RESP 16–24; TEMP 36.4–36.8; O2SAT 90–100; BMI 28.2
[2021-08-04] MEDS: Esmolol HCl/NaCl Iso 2,500 MG/250 ML IV.SOLN 103.42 MG IVCONT ×7 (01:40→15:12)
[2021-08-04] MEDS: Digoxin 0.5 MG/2 ML AMPUL 0.25 MG IVPUSH (02:31)
[2021-08-04 05:15] LABS: MANUAL DIFF FLAG NO
[2021-08-04 05:21] LABS: Hemoglobin 14.3 g/dl (14.0-18.0); Imm Gran Abs Auto 0.12 X10*3/uL (0.00-0.03); Imm Gran Pct Auto 1.2 % (0.0-0.4); Lymphocytes Absolute Auto 0.7 X10*3/uL (1.2-4.9); Lymphocytes Percent Auto 7.3 % (20-40); Mean Corpuscular HGB Conc 33.3 g/dl (31.0-36.0); Mean Corpuscular Hemoglobin 31.8 pg (27.0-33.0); Mean Corpuscular Volume 95.8 fL (80.0-98.0); Mean Platelet Volume 11.2 fL (9.4-12.4); Monocytes Absolute Auto 0.5 X10*3/uL (0.1-1.2); Monocytes Percent Auto 4.5 % (2-11); Neutrophils Absolute Auto 8.8 x10*3/uL (2.0-8.3); Platelet Count 144 X10*3/uL (160-400); Red Blood Count 4.49 X10*6/uL (4.60-5.80); Red Cell Distribution Width 13.6 % (11.0-16.0); White Blood Count 10.2 X10*3/uL (4.8-10.8)
[2021-08-04 05:39] LABS: Alanine Aminotransferase 67 U/L (0-40); Albumin Level 3.6 g/dL (3.5-5.0); Alkaline Phosphatase 47 U/L (39-117); Anion Gap 15 (12-20); Aspartate Amino Transferase 33 U/L (5-37); B Type Natriuretic Peptide 791 pg/mL (<100); Bilirubin Total 1.3 mg/dL (0.0-1.0); Blood Urea Nitrogen 28 mg/dL (9-16); Carbon Dioxide 24 mmol/L (22-29); Chloride 104 mmol/L (96-108); Creatinine Clr Calc Pharmacy 41.6; Estimated Glomerular Filt Rate 41; Glucose Fasting 128 mg/dL (60-99); Magnesium 2.1 mg/dL (1.6-2.6); Phosphorus 4.4 mg/dL (2.7-4.5); Potassium 4.6 mmol/L (3.3-5.1); Sodium 138 mmol/L (135-145); Total Protein 5.7 g/dL (6.5-8.0)
[2021-08-04] MEDS: Omeprazole 20 MG CAPSULE.DR PO (06:20)
[2021-08-04] MEDS: Levothyroxine Sodium 100 MCG TABLET PO (06:20)
--- NOTE | 2021-08-04 06:28 | PC.NURSE ---
Pt.'s transfer orders were accepted by Zonia Stephen RN, but was mistakenly documented as being accepted by Viviana Mosquera RN.
--- NOTE | 2021-08-04 07:00 | CA_ITS ---
Transthoracic Echocardiogram Patient (Last, First, Middle): Madan Oliveira, Gender: Male Date of : 1945 Age: 76 Procedure Date: 08/04/2021 Procedure Type: Transthoracic Echocardiogram Location: ICU Height: 175.26 cm Weight: 86.64 kg BSA: 2.03 m2 Heart Rate: bpm BP: 115 / 79 mmHg Product Designer: [facility]I Referring MD: Sergio Dunn NP Varitype Operator: Miguel A Garay MD Symptoms: AFIB RVR/ Tachy gabi syndrome Study Quality: Fair ECG Rhythm: Atrial Fibrillation with rapid ventricular respons Conclusions: - 1. Normal LV systolic function 2. Dilated right ventricle with preserved contractility 3. Biatrial enlargement 4. Mildly elevated right atrial pressures Findings Left Ventricle Normal left ventricular size, thickness, and systolic function. The visually estimated ejection fraction is between 60-65%. Diastolic function is indeterminate on the basis of available data. Right Ventricle Moderately increased right ventricular cavity size. There is low normal right ventricular systolic function. Atria The left atrium is severely dilated. Tricuspid Valve Mildly elevated right atrial pressure. Venous The inferior vena cava is mildly dilated and collapses greater than 50% with inspiration. Pericardium/Pleural There is no evidence of pericardial effusion. Prior Study Comparison No significant change compared to prior study dated: 10/02/2020. Measurements 2D Linear Measurements IVSd: 1.17 0.6-0.9/0.6-1.0 cm LVIDd: 4.15 3.9-5.3/4.2-5.9 cm LVIDd Index: 2.04 2.4-3.2/2.2-3.1 cm/m2 LVIDs: 2.65 2.0-3.6 cm LVPWd: 1.11 0.7-1.1 cm LA Diam: 4.40 2.7-3.8/3.0-4.0 cm LAIDs Index: 2.17 1.5-2.3 cm/m2 LV Mass: 202.15 67-162/88-224 g LV Mass Index: 99.58 43-95/49-115 g/m2 Tricuspid Valve TR Pk David: 2.69 TR Pk Grad: 29.00 Updated in Other Vendor System with Status of Final Miguel A Garay MD electronically signed on 08/04/2021 3:52:37 PM with status of Final
[2021-08-04] MEDS: 0.9 % Sodium Chloride Flush 3 ML SYRINGE IVFLUSH ×2 (08:17→13:02)
--- NOTE | 2021-08-04 10:14 | P.PNCC_ITS ---
Subjective Subjective Date of Service: 08/04/21 Interval History: Mr. Oliveira was transferred to the ICU last night because of bradycardia requiring a dopamine drip. The patient is a 76-year-old male with PMHx of atrial fibrillation (on Pradaxa and atenolol), HTN, HFpEF, CKD (baseline 1.4).? 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 Fully functional.? Former smoker, but no h/o COPD or asthma. Echo this past September showed mild left ventricular hypertrophy with normal LV cavity size and normal systolic function with EF 55-60%.? Right ventricular size was mildly increased, with normal function.? There was mild MR and mild TR.? The inferior vena cava was normal with greater than 50% inspiratory collapse.? RVSP estimate was 31 mm. The patient presented to the emergency room yesterday with a 14 d h/o dry cough and progressive shortness of breath.? He?d seen his PCP and had a negative CXR, was given a rescue inhaler, and a Prednisone taper which he just finished. ?He came to the ED yesterday bec of severe COSTA.? Denied orthopnea or leg swelling.? No fever or chest pain.? Tested negative for COVID about a week ago. In the ED, he was in no acute distress.? Heart rate was 127, atrial fibrillation.? Blood pressure was 129/74, respiratory rate was 16, sat was 100% on supplemental oxygen.? He had expiratory wheezing throughout. Labs in the ED were notable for white count of 13, PT 14/1.3, BUN/creatinine 28/1.8, bicarb 23, total bilirubin 1.4, mild transaminase elevation, troponins 159 and 158, and BNP 1180.? Chest x-ray maybe had some lingular atelectasis.? Noncontrast chest CT showed multiple foci of subtle wispy opacities concerning for early pneumonia.? There was a small volume of loculated ascites around the liver. Patient was treated with diltiazem bolus in the ED and then started on a diltia zem drip.? He was also started on ceftriaxone and given Lasix 20 mg.? He was admitted to Medicine and put on ceftriaxone and Zithromax. As I understand it, while still in the ED, after the diltiazem drip was turned up to 15 mg/hour, the patient became bradycardic in the 30s and dropped his pressure to 70.? The diltiazem was stopped, a central line was placed and the patient was started on dopamine and transferred to the ICU.? The heart rate fide again, the dopamine was stopped, and the patient was given four doses of digoxin 0.25 mg, without effect.? He was therefore started on esmolol which got his heart rate down into the 110s range. On exam this morning, the patient is fully awake and oriented, and entirely well-appearing.? He was able to give me a good history.? Heart rate is 116, atrial fibrillation.? Blood pressure 103/79, on esmolol 200 mcg.? Respiratory rate is 16-20, with a sat of 98% on room air.? He has been afebrile throughout.? There is no jugular venous distention with the head of the bed at 30-40 degrees.? Auscultation of the chest shows mild expiratory wheezing, with a normal expiratory phase.? Heart tones are soft; rate and rhythm are irregular, with normal-sounding S1 and S2, with no murmur or gallops.? The abdomen is benign.? The patient has no peripheral edema. LABORATORY DATA:? Below.? Notably, white count is down to 10, creatinine is down slightly to 1.6, BNP is down to 791. IMPRESSION: 1. Chronic atrial fibrillation, on Pradaxa and atenolol at home. 2. New afib w RVR.? Could be the cause of his acute heart failure or 2? to it.? Currently on esmolol drip at 200 mcg, and loaded with digoxin.? At the suggestion of Dr. Garay, we will start him on a atenolol 50 mg qid. and digoxin 0.125 mg daily.? Will change him to Lovenox for now, in case a PPM is needed t his admission. 3. Chronic HFpEF 4. Acute CHF.? In my opinion, the patient's respiratory symptoms are primarily due to heart failure, not pneumonia.? Will give him another 20 mg dose of Lasix now. 5. Right heart failure.? Seen on his last echo.? It?s possible that his symptomatic COSTA is due in part or primarily to RHF (as opposed to LHF).? I think his small volume ascites is also most likely secondary to RHF. 6. CKD 7. BONI. ?With his RHF and CKD, I?m concerned that he may have early cardiorenal syndrome.? We?ll see how he responds to the Lasix. 8. Bilat pulmon infiltrates.? Clinically, the patient is fully nontoxic, and has a Sat up to 98% on room air, which is inconsistent with pneumonia.? I discussed the CT findings with Dr. Miranda.? In his opinion, the small, focal bilat wispy infiltrates are more suggestive of early pneumonia than CHF.? In view of that, I will continue a 5-day course of ceftriaxone, d/c the Zithromax. Critical care time:? 70+ min Critical Care Time (minutes): 70 Physical Exam Vital Signs: Vital Signs: Last Vital Signs Temp 97.8 F 08/04/21 08:00 Pulse 129 H 08/04/21 10:00 Resp 18 08/04/21 10:00 BP 103/79 08/04/21 10:00 Pulse Ox 95 08/04/21 10:00 BMI result Body Mass Index 28.2 Objective Data Labs CBC & Chem 7: 08/05/21 05:26 08/05/21 05:26 Labs: Laboratory Results - last 24 hr 08/03/21 08/03/21 08/03/21 13:07 13:07 13:07 WBC 13.4 H RBC 5.12 Hgb 16.7 Hct 50.2 MCV 98.0 MCH 32.6 MCHC 33.3 RDW 13.8 Plt Count 188 MPV 11.1 Immature Gran % (Auto) 2.1 H Neut % (Auto) 69.0 Lymph % (Auto) 15.8 L Mcdonough % (Auto) 11.7 H Eos % (Auto) 1.3 Baso % (Auto) 0.1 Lymph # (Auto) 2.1 Mcdonough # (Auto) 1.6 H Eos # (Auto) 0.2 Baso # (Auto) 0.0 Abs Immat Gran (auto) 0.28 H Absolute Neuts (auto) 9.2 H Absolute Nucleated RBC 0.000 Nucleated RBC % (auto) 0.0 Smear Tech's Comments VERIFIED PT INR Sodium 138 Potassium 4.2 Chloride 103 Carbon Dioxide 23 Anion Gap 16 BUN 28 H D Creatinine 1.84 H Estim Creat Clear Calc 37.1 Estimated GFR 36 POC Glucose Random Glucose 105 Fasting Glucose Lactic Acid Lactic Acid F/U @ 2Hr Calcium 9.7 Phosphorus Magnesium 2.4 Total Bilirubin 1.4 H Direct Bilirubin 0.6 H AST 37 D ALT 66 H Alkaline Phosphatase 60 D Troponin I High Sens 159.7 H* B-Natriuretic Peptide Total Protein 7.1 Albumin 4.4 COVID-19 (JORGE) COVID-19 Clin Com Influenza Type A (JOSIE) Influenza Type B (JOSIE) Influenza A & B Note 08/03/21 08/03/21 08/03/21 13:07 13:07 13:07 WBC RBC Hgb Hct MCV MCH MCHC RDW Plt Count MPV Immature Gran % (Auto) Neut % (Auto) Lymph % (Auto) Mcdonough % (Auto) Eos % (Auto) Baso % (Auto) Lymph # (Auto) Mcdonough # (Auto) Eos # (Auto) Baso # (Auto) Abs Immat Gran (auto) Absolute Neuts (auto) Absolute Nucleated RBC Nucleated RBC % (auto) Smear Tech's Comments PT 14.7 H INR 1.3 H Sodium Potassium Chloride Carbon Dioxide Anion Gap BUN Creatinine Estim Creat Clear Calc Estimated GFR POC Glucose Random Glucose Fasting Glucose Lactic Acid Lactic Acid F/U @ 2Hr Calcium Phosphorus Magnesium Total Bilirubin Direct Bilirubin AST ALT Alkaline Phosphatase Troponin I High Sens B-Natriuretic Peptide Total Protein Albumin COVID-19 (JORGE) Negative COVID-19 Clin Com See Note Influenza Type A (JOSIE) Negative Influenza Type B (JOSIE) Negative Influenza A & B Note See Note 08/03/21 08/03/21 08/03/21 13:07 13:08 15:51 WBC RBC Hgb Hct MCV MCH MCHC RDW Plt Count MPV Immature Gran % (Auto) Neut % (Auto) Lymph % (Auto) Mcdonough % (Auto) Eos % (Auto) Baso % (Auto) Lymph # (Auto) Mcdonough # (Auto) Eos # (Auto) Baso # (Auto) Abs Immat Gran (auto) Absolute Neuts (auto) Absolute Nucleated RBC Nucleated RBC % (auto) Smear Tech's Comments PT INR Sodium Potassium Chloride Carbon Dioxide Anion Gap BUN Creatinine Estim Creat Clear Calc Estimated GFR POC Glucose Random Glucose Fasting Glucose Lactic Acid 2.3 H* Lactic Acid F/U @ 2Hr 2.0 Calcium Phosphorus Magnesium Total Bilirubin Direct Bilirubin AST ALT Alkaline Phosphatase Troponin I High Sens B-Natriuretic Peptide 1180 H Total Protein Albumin COVID-19 (JORGE) COVID-19 Clin Com Influenza Type A (JOSIE) Influenza Type B (JOSIE) Influenza A & B Note 08/03/21 08/03/21 08/03/21 16:00 17:59 21:54 WBC RBC Hgb Hct MCV MCH MCHC RDW Plt Count MPV Immature Gran % (Auto) Neut % (Auto) Lymph % (Auto) Mcdonough % (Auto) Eos % (Auto) Baso % (Auto) Lymph # (Auto) Mcdonough # (Auto) Eos # (Auto) Baso # (Auto) Abs Immat Gran (auto) Absolute Neuts (auto) Absolute Nucleated RBC Nucleated RBC % (auto) Smear Tech's Comments PT INR Sodium Potassium Chloride Carbon Dioxide Anion Gap BUN Creatinine Estim Creat Clear Calc Estimated GFR POC Glucose 179 H Random Glucose Fasting Glucose Lactic Acid Lactic Acid F/U @ 2Hr Calcium Phosphorus Magnesium Total Bilirubin Direct Bilirubin AST ALT Alkaline Phosphatase Troponin I High Sens 158.1 H* 181.7 H* B-Natriuretic Peptide Total Protein Albumin COVID-19 (JORGE) COVID-19 Clin Com Influenza Type A (JOSIE) Influenza Type B (JOSIE) Influenza A & B Note 08/03/21 08/04/21 08/04/21 23:00 05:12 05:12 WBC 10.2 RBC 4.49 L Hgb 14.3 Hct 43.0 MCV 95.8 MCH 31.8 MCHC 33.3 RDW 13.6 Plt Count 144 L MPV 11.2 Immature Gran % (Auto) 1.2 H Neut % (Auto) 87.0 H Lymph % (Auto) 7.3 L Mcdonough % (Auto) 4.5 Eos % (Auto) 0.0 Baso % (Auto) 0.0 Lymph # (Auto) 0.7 L Mcdonough # (Auto) 0.5 Eos # (Auto) 0.0 Baso # (Auto) 0.0 Abs Immat Gran (auto) 0.12 H Absolute Neuts (auto) 8.8 H Absolute Nucleated RBC 0.000 Nucleated RBC % (auto) 0.0 Smear Tech's Comments PT INR Sodium 137 138 Potassium 4.1 4.6 Chloride 103 104 Carbon Dioxide 20 L 24 Anion Gap 18 15 BUN 27 H 28 H Creatinine 1.79 H 1.64 H Estim Creat Clear Calc 38.1 41.6 Estimated GFR 37 41 POC Glucose Random Glucose 203 H D Fasting Glucose 128 H Lactic Acid Lactic Acid F/U @ 2Hr Calcium 9.3 9.0 Phosphorus 3.5 4.4 Magnesium 2.2 2.1 Total Bilirubin 1.3 H Direct Bilirubin AST 33 ALT 67 H Alkaline Phosphatase 47 D Troponin I High Sens B-Natriuretic Peptide Total Protein 5.7 L Albumin 3.6 COVID-19 (JORGE) COVID-19 Clin Com Influenza Type A (JOSIE) Influenza Type B (JOSIE) Influenza A & B Note 08/04/21 05:12 WBC RBC Hgb Hct MCV MCH MCHC RDW Plt Count MPV Immature Gran % (Auto) Neut % (Auto) Lymph % (Auto) Mcdonough % (Auto) Eos % (Auto) Baso % (Auto) Lymph # (Auto) Mcdonough # (Auto) Eos # (Auto) Baso # (Auto) Abs Immat Gran (auto) Absolute Neuts (auto) Absolute Nucleated RBC Nucleated RBC % (auto) Smear Tech's Comments PT INR Sodium Potassium Chloride Carbon Dioxide Anion Gap BUN Creatinine Estim Creat Clear Calc Estimated GFR POC Glucose Random Glucose Fasting Glucose Lactic Acid Lactic Acid F/U @ 2Hr Calcium Phosphorus Magnesium Total Bilirubin Direct Bilirubin AST ALT Alkaline Phosphatase Troponin I High Sens B-Natriuretic Peptide 791 H Total Protein Albumin COVID-19 (JORGE) COVID-19 Clin Com Influenza Type A (JOSIE) Influenza Type B (JOSIE) Influenza A & B Note Quality Stroke Does the patient have a stroke diagnosis?: No VTE Prior VTE?: No VTE Risk Level:: Medical - moderate - high VTE Device Contraindication: Treatment Not Indicated VTE Drug Contraindication: N/A - Med Ordered Critical Care Time Critical Care Time (minutes): 60
--- NOTE | 2021-08-04 10:18 | MHC.CM.PN ---
Met with pt and spouse to discuss d/c planning: pt resides with spouse, is totally independent with all care needs, no services, equipment or barriers identified: IMM in chart, HCP at home, Vax x3. D/C plan is for a return to home with outpt follow up. Spouse to transport
--- NOTE | 2021-08-04 10:46 | PC.NURSE ---
Pt A&Ox3, afib 97bpm-145bpm mostly 115bpm-135bpm BP 90's/70's making 35ml/hr yellow urine, on esmolol drip at 200mcg/kg/min, pradaxa held this AM per cardiology recommendation. Pt denies CP, dizziness, palpitations, or SOB. No edema or JVD, pulses 3+ normal, distant heart sounds, skin is dry s/p x2 doses of lasix since admit U/O ~1700ml since ED. 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 Bed locked and in lowest position, call vera in reach.
--- NOTE | 2021-08-04 12:25 | P.PNCA_ITS ---
Subjective Subjective Date of Service: 08/04/21 <GUERO Cutler - Last Filed: 08/04/21 12:48> 08/04/21 <Miguel A Garay MD - Last Filed: 08/04/21 17:17> Principal diagnosis: Afib, bradycardia, PNA, diastolic HF <GUERO Cutler - Last Filed: 08/04/21 12:48> Interval history: Cardiology follow up for the above. Seen at 1045. Today he is observed resting in bed without acute distress. He reports breathing is comfortable, no chest pains or palpitations. Esmolol drip infusing. at bedside. Concerned a bout possible PPM need. Would like to talk with Dr Garay. <SAV Cutler - Last Filed: 08/04/21 12:48> Review of Systems Review of Systems as above <GUERO Cutler - Last Filed: 08/04/21 12:48> Yes all other systems are reviewed and are negative <GUERO Cutler - Last Filed: 08/04/21 12:48> Physical Exam Vital Signs: Last Vital Signs Temp 98.3 F 08/04/21 12:00 Pulse 100 08/04/21 12:14 Resp 18 08/04/21 12:00 BP 87/61 L 08/04/21 12:14 Pulse Ox 96 08/04/21 12:00 BMI result Body Mass Index 28.2 <GUERO Cutler - Last Filed: 08/04/21 12:48> Const General: cooperative, no acute distress, alert and awake <GUERO Cutler - Last Filed: 08/04/21 12:48> Orientation/consciousness: patient oriented x3 <GUERO Cutler - Last Filed: 08/04/21 12:48> Neck Neck: Yes normal visual inspection and Yes no JVD <GUERO Cutler Last Filed: 08/04/21 12:48> Resp Other: bilateral expiratory wheezes noted on exam <GUERO Cutler - Last Filed: 08/04/21 12:48> Effort & Inspection: normal respiratory effort and able to speak in complete sentences <Nuria Jansen MARKETING DEVELOPMENT SPECIALIST-C - Last Filed: 08/04/21 12:48> Auscultation: clear to auscultation bilaterally, no rales and no rhonchi <Nuria JansenSAVC - Last Filed: 08/04/21 12:48> Cardio Rhythm: regular rhythm and abnormal rhythm (irregular irreg) <Nuria JansenLUANN- C - Last Filed: 08/04/21 12:48> Heart sounds: S1 normal heart sound present and S2 normal heart sound present <Nuria JansenLUANN-C - Last Filed: 08/04/21 12:48> GI Inspection: Yes normal to inspection <Nuria JansenSAVC - Last Filed: 08/04/21 12:48> Neuro General: patient oriented x3 <Nuria JansenLUANN-C - Last Filed: 08/04/21 12:48> Extrem General: Yes normal to inspection and No edema <Nuria JansenLUANN-C - Last Filed: 08/04/21 12:48> Objective Labs and Meds Result diagrams: : 08/04/21 05:12 08/04/21 05:12 <Nuria JansenLUANN-C - Last Filed: 08/04/21 12:48> Lab results: Laboratory Results - last 24 hr 08/03/21 08/03/21 08/03/21 13:07 13:07 13:07 WBC 13.4 H RBC 5.12 Hgb 16.7 Hct 50.2 MCV 98.0 MCH 32.6 MCHC 33.3 RDW 13.8 Plt Count 188 MPV 11.1 Immature Gran % (Auto) 2.1 H Neut % (Auto) 69.0 Lymph % (Auto) 15.8 L [place] % (Auto) 11.7 H Eos % (Auto) 1.3 Baso % (Auto) 0.1 Lymph # (Auto) 2.1 [place] # (Auto) 1.6 H Eos # (Auto) 0.2 Baso # (Auto) 0.0 Abs Immat Gran (auto) 0.28 H Absolute Neuts (auto) 9.2 H Absolute Nucleated RBC 0.000 Nucleated RBC % (auto) 0.0 Smear Tech's Comments VERIFIED PT INR Sodium 138 Potassium 4.2 Chloride 103 Carbon Dioxide 23 Anion Gap 16 BUN 28 H D Creatinine 1.84 H Estim Creat Clear Calc 37.1 Estimated GFR 36 POC Glucose Random Glucose 105 Fasting Glucose Lactic Acid Lactic Acid F/U @ 2Hr Calcium 9.7 Phosphorus Magnesium 2.4 Total Bilirubin 1.4 H Direct Bilirubin 0.6 H AST 37 D ALT 66 H Alkaline Phosphatase 60 D Troponin I High Sens 159.7 H* B-Natriuretic Peptide Total Protein 7.1 Albumin 4.4 COVID-19 (JORGE) COVID-19 Clin Com Influenza Type A (JOSIE) Influenza Type B (JOSIE) Influenza A & B Note 08/03/21 08/03/21 08/03/21 13:07 13:07 13:07 WBC RBC Hgb Hct MCV MCH MCHC RDW Plt Count MPV Immature Gran % (Auto) Neut % (Auto) Lymph % (Auto) [place] % (Auto) Eos % (Auto) Baso % (Auto) Lymph # (Auto) [place] # (Auto) Eos # (Auto) Baso # (Auto) Abs Immat Gran (auto) Absolute Neuts (auto) Absolute Nucleated RBC Nucleated RBC % (auto) Smear Tech's Comments PT 14.7 H INR 1.3 H Sodium Potassium Chloride Carbon Dioxide Anion Gap BUN Creatinine Estim Creat Clear Calc Estimated GFR POC Glucose Random Glucose Fasting Glucose Lactic Acid Lactic Acid F/U @ 2Hr Calcium Phosphorus Magnesium Total Bilirubin Direct Bilirubin AST ALT Alkaline Phosphatase Troponin I High Sens B-Natriuretic Peptide Total Protein Albumin COVID-19 (JORGE) Negative COVID-19 Clin Com See Note Influenza Type A (JOSIE) Negative Influenza Type B (JOSIE) Negative Influenza A & B Note See Note 08/03/21 08/03/21 08/03/21 13:07 13:08 15:51 WBC RBC Hgb Hct MCV MCH MCHC RDW Plt Count MPV Immature Gran % (Auto) Neut % (Auto) Lymph % (Auto) [place] % (Auto) Eos % (Auto) Baso % (Auto) Lymph # (Auto) [place] # (Auto) Eos # (Auto) Baso # (Auto) Abs Immat Gran (auto) Absolute Neuts (auto) Absolute Nucleated RBC Nucleated RBC % (auto) Smear Tech's Comments PT INR Sodium Potassium Chloride Carbon Dioxide Anion Gap BUN Creatinine Estim Creat Clear Calc Estimated GFR POC Glucose Random Glucose Fasting Glucose Lactic Acid 2.3 H* Lactic Acid F/U @ 2Hr 2.0 Calcium Phosphorus Magnesium Total Bilirubin Direct Bilirubin AST ALT Alkaline Phosphatase Troponin I High Sens B-Natriuretic Peptide 1180 H Total Protein Albumin COVID-19 (JORGE) COVID-19 Clin Com Influenza Type A (JOSIE) Influenza Type B (JOSIE) Influenza A & B Note 08/03/21 08/03/21 08/03/21 16:00 17:59 21:54 WBC RBC Hgb Hct MCV MCH MCHC RDW Plt Count MPV Immature Gran % (Auto) Neut % (Auto) Lymph % (Auto) [place] % (Auto) Eos % (Auto) Baso % (Auto) Lymph # (Auto) [place] # (Auto) Eos # (Auto) Baso # (Auto) Abs Immat Gran (auto) Absolute Neuts (auto) Absolute Nucleated RBC Nucleated RBC % (auto) Smear Tech's Comments PT INR Sodium Potassium Chloride Carbon Dioxide Anion Gap BUN Creatinine Estim Creat Clear Calc Estimated GFR POC Glucose 179 H Random Glucose Fasting Glucose Lactic Acid Lactic Acid F/U @ 2Hr Calcium Phosphorus Magnesium Total Bilirubin Direct Bilirubin AST ALT Alkaline Phosphatase Troponin I High Sens 158.1 H* 181.7 H* B-Natriuretic Peptide Total Protein Albumin COVID-19 (JORGE) COVID-19 Clin Com Influenza Type A (JOSIE) Influenza Type B (JOSIE) Influenza A & B Note 08/03/21 08/04/21 08/04/21 23:00 05:12 05:12 WBC 10.2 RBC 4.49 L Hgb 14.3 Hct 43.0 MCV 95.8 MCH 31.8 MCHC 33.3 RDW 13.6 Plt Count 144 L MPV 11.2 Immature Gran % (Auto) 1.2 H Neut % (Auto) 87.0 H Lymph % (Auto) 7.3 L [place] % (Auto) 4.5 Eos % (Auto) 0.0 Baso % (Auto) 0.0 Lymph # (Auto) 0.7 L [place] # (Auto) 0.5 Eos # (Auto) 0.0 Baso # (Auto) 0.0 Abs Immat Gran (auto) 0.12 H Absolute Neuts (auto) 8.8 H Absolute Nucleated RBC 0.000 Nucleated RBC % (auto) 0.0 Smear Tech's Comments PT INR Sodium 137 138 Potassium 4.1 4.6 Chloride 103 104 Carbon Dioxide 20 L 24 Anion Gap 18 15 BUN 27 H 28 H Creatinine 1.79 H 1.64 H Estim Creat Clear Calc 38.1 41.6 Estimated GFR 37 41 POC Glucose Random Glucose 203 H D Fasting Glucose 128 H Lactic Acid Lactic Acid F/U @ 2Hr Calcium 9.3 9.0 Phosphorus 3.5 4.4 Magnesium 2.2 2.1 Total Bilirubin 1.3 H Direct Bilirubin AST 33 ALT 67 H Alkaline Phosphatase 47 D Troponin I High Sens B-Natriuretic Peptide Total Protein 5.7 L Albumin 3.6 COVID-19 (JORGE) COVID-19 Clin Com Influenza Type A (JOSIE) Influenza Type B (JOSIE) Influenza A & B Note 08/04/21 05:12 WBC RBC Hgb Hct MCV MCH MCHC RDW Plt Count MPV Immature Gran % (Auto) Neut % (Auto) Lymph % (Auto) [place] % (Auto) Eos % (Auto) Baso % (Auto) Lymph # (Auto) [place] # (Auto) Eos # (Auto) Baso # (Auto) Abs Immat Gran (auto) Absolute Neuts (auto) Absolute Nucleated RBC Nucleated RBC % (auto) Smear Tech's Comments PT INR Sodium Potassium Chloride Carbon Dioxide Anion Gap BUN Creatinine Estim Creat Clear Calc Estimated GFR POC Glucose Random Glucose Fasting Glucose Lactic Acid Lactic Acid F/U @ 2Hr Calcium Phosphorus Magnesium Total Bilirubin Direct Bilirubin AST ALT Alkaline Phosphatase Troponin I High Sens B-Natriuretic Peptide 791 H Total Protein Albumin COVID-19 (JORGE) COVID-19 Clin Com Influenza Type A (JOSIE) Influenza Type B (JOSIE) Influenza A & B Note <GUERO Cutler - Last Filed: 08/04/21 12:48> Imaging Radiologist's impression: Impressions Chest X-Ray 08/03/21 14:15 IMPRESSION: Lingular atelectasis. Chest CT 08/03/21 15:21 IMPRESSION: 1. Diffusely thick-walled airways. 2. Multifocal predominantly linear bandlike parenchymal opacities. Subsegmental atelectasis favored but cannot exclude bronchopneumonia. 3. Small volume of loculated ascites overlying the liver. This is abnormal and further evaluation of the abdomen is advised. Fleischner guidelines were followed. Chest X-Ray 08/03/21 18:50 IMPRESSION: As above. <GUERO Cutler - Last Filed: 08/04/21 12:48> Progress Note: A&P Assessment and plan (1) Symptomatic bradycardia: Status: Acute <GUERO Cutler - Last Filed: 08/04/21 12:48> Assessment and Plan: Admit with sob, bronchopneumonia. Hx afib and had afib RVR in ED. Treated with Diltiazem drip up to 15mg/hr and had symptomatic bradycardia, with hypotension. Diltiazem stopped. Managed acutely, with Ca gluconate. Did not require dopamine drip. 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 Transferred to ICU and being followed closely by transport engineer. Tele has remained stable, afib rates up to 120s. On Esmolol drip for heart rate control. No further gabi and no significant pauses. Dr Garay did speak with pt. PPM placement on hold at this time. Recommend treat afib with rate control using digoxin and atenolol. Wean Esmolol drip to off. Close heart rate and rhythm monitoring. Pradaxa on hold. Recommend use of Lovenox for anticoagulation. PPM need has not been entirely ruled out as of yet. Will have thoracic surgery see him in consult, in the event PPM is needed this admit. Discussed case with Dr Keene. We will follow. <GUERO Cutler - Last Filed: 08/04/21 12:48> Admit with sob, bronchopneumonia. Hx afib and had afib RVR in ED. Treated with Diltiazem drip up to 15mg/hr and had symptomatic bradycardia, with hypotension. Diltiazem stopped. Managed acutely, with Ca gluconate. Did not require dopamine drip. 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 Transferred to ICU and being followed closely by transport engineer. Tele has remained stable, afib rates up to 120s. On Esmolol drip for heart rate control. No further gabi and no significant pauses. Dr Garay did speak with pt. PPM placement on hold at this time. Recommend treat afib with rate control using digoxin and atenolol. Wean Esmolol drip to off. Close heart rate and rhythm monitoring. Pradaxa on hold. Recommend use of Lovenox for anticoagulation. PPM need has not been entirely ruled out as of yet. Will have thoracic surgery see him in consult, in the event PPM is needed this admit. Discussed case with Dr Keene. We will follow. Patient seen and case discussed with Nuria Jansen. Patient developed significant bradycardia and hypertension yesterday. However it seems like this was most likely related to multiple medication use at that point time. Was a consideration for pacemaker therapy. Now he has developed tachycardia related to atrial fibrillation. Could be related to his underlying medical condition including CHF and bronchopneumonia. For now will pursue aggressive rate control approach and if he develops again significant bradycardia may pursue pacing therapy. This was discussed with him. He understands and agrees. He was relieved by avoidance of pacemaker at this point in time. <Miguel A Garay MD - Last Filed: 08/04/21 17:17> (2) A-fib: Status: Acute <GUERO Cutler - Last Filed: 08/04/21 12:48> Assessment and Plan: Chronic. Follows with Dr Garay as outpt <GUERO Cutler - Last Filed: 08/04/21 12:48> Chronic. Follows with Dr Garay as outpt Patient has chronic atrial fibrillation has failed rhythm control approach many years ago and now with significant biatrial enlargement. Unlikely to pursue rhythm control at this point time. His rate control is been difficult but this is most likely driven by his acute medical illness and hospitalization anxiety. Atenolol 50 mg q.6 hours, will gradually taper esmolol therapy. Digoxin 1 dose 0.25 mg. Blood pressure is borderline low with tachycardic heart rate response. P.r.n. Cardizem therapy and eventually require oral therapy with Cardizem. LV systolic function is normal. Overall prognosis is guarded at this point time. <Miguel A Garay MD - Last Filed: 08/04/21 17:17> (3) Acute exacerbation of congestive heart failure: Status: Acute <GUERO Cutler - Last Filed: 08/04/21 12:48> Assessment and Plan: Admit with sob. Being treated for bronchopneumonia and has some mild acute on chronic diastolic CHF. BNP 1180 on admit. Treated initially with IV lasix. Has had some low BPs. Home lasix 20mg daily, currently on hold. Breathing comfortable at present. Does have wheezes on exam. BNP down to 791. Plan to restart po Lasix when BP allows. <GUERO Cutler - Last Filed: 08/04/21 12:48> Admit with sob. Being treated for bronchopneumonia and has some mild acute on chronic diastolic CHF. BNP 1180 on admit. Treated initially with IV lasix. Has had some low BPs. Home lasix 20mg daily, currently on hold. Breathing comfortable at present. Does have wheezes on exam. BNP down to 791. Plan to restart po Lasix when BP allows. Shortness of breath with elevated BNP as well as significant wheezing. Appears to be have bronchial process. Continue pulmonary specific bronchodilators. Gentle diuresis. Will follow with you <Miguel A Garay MD - Last Filed: 08/04/21 17:17> (4) Pneumonia: Status: Acute <GUERO Cutler - Last Filed: 08/04/21 12:48> Assessment and Plan: Being managed by hospitalist/ intensivisit <GUERO Cutler - Last Filed: 08/04/21 12:48> Time Spent With Patient Time: Total time spent is greater than 50% in coordination of care (as documented) at patient's floor/unit and/or counseling patient:22 <GUERO Cutler - Last Filed: 08/04/21 12:48> Progress Note: Quality Stroke Does the patient have a stroke diagnosis?: No <GUERO Cutler - Last Filed: 08/04/21 12:48> Procedures Date of Service Date of Service: 08/04/21 <GUERO Cutler - Last Filed: 08/04/21 12:48>
[2021-08-04] MEDS: Furosemide 20 MG/2 ML VIAL IVPUSH ×2 (12:39→17:05)
[2021-08-04] MEDS: Enoxaparin Sodium 80 MG/0.8 ML SYRINGE SUBCUT (13:01)
[2021-08-04] MEDS: atenoloL 50 MG TABLET PO ×3 (13:01→21:36)
--- NOTE | 2021-08-04 14:01 | P.CDIC_ITS ---
CDI Concurrent Query Documentation Clarification: PHYSICIAN'S DOCUMENTATION REQUEST Date of Query: 08/04/21 1402 Patient Name: Madan Oliveira Admit Date: 08/03/21 Dear Doctor, A review of the medical record indicates additional documentation may be needed. Please review below and update the documentation accordingly. Clinical Indicators: The following clinical information was noted in the record: Risk Factors/Clinical Indicators/Treatments BUN 28 Creatinine 1.65 Est GFR 41 PMH: CKD, please provide stage Per H&P:BONI/CKD Please clarify which of the following accurately represents the patient's renal status: * CKD, please provide stage - see criteria * Other (please specify) * Unable to determine Stages of Chronic Kidney Disease* Level Description GFR G1 Normal or High > 90 G2 Mildly decreased 60 ? 89 G3a Mildly to moderately decreased 45 ? 59 G3b Moderately to severely decreased 30 - 44 G4 Severely decreased 15 ? 29 G5 Kidney failure < 15 *Source: Kidney Disease: Improving Global Outcomes (KDIGO) 2012 Use of terms such as suspected, likely, concern for, or probable (associated with a specific diagnosis that is being evaluated, monitored, or treated as if it exists) are acceptable and can be coded in the inpatient setting, when documented at the time of discharge. Thank you, Yue Gautam RN Extension: [phone] Please use your independent medical judgment in providing your response. THIS QUERY IS PART OF THE PERMANENT MEDICAL RECORD Provider Response: CKD Stage 3 (Probaby CKD stage 3a)
[2021-08-04] MEDS: cefTRIAXone sodium 1 GM in 0.9 % Sodium Chloride 50 ML IV (15:12)
[2021-08-04] MEDS: dilTIAZem HCL 50 MG/10 ML VIAL IVPUSH ×3 (15:30→18:43)
[2021-08-04] MEDS: dilTIAZem HCL 125 MG in 0.9 % Sodium Chloride 100 ML IVCONT (16:48)
[2021-08-04] MEDS: Esmolol HCl/NaCl Iso 2,500 MG/250 ML IV.SOLN 51.71 MG IVCONT ×2 (18:22→22:56)
[2021-08-04 20:37] LABS: D Dimer High Sensitivity 585 NG/ML
--- NOTE | 2021-08-04 21:08 | PC.NURSE ---
STAT Levophed pulled from Pyxis at appx. 19:56 d/t pt.'s BP 52/37 with a MAP of 42. Initiated Levophed gtt with a starting rate of 1 mcg/kg/min per verbal order of JUANA Blackwood. At appx. 20:07, pt.'s BP noted to be 166/133. Levophed gtt stopped at that point per verbal orders from PA. Will continue to monitor
[2021-08-04 21:09] LABS: TSH reflex Free T4 0.93 uIU/mL (0.32-4.0)
[2021-08-04] MEDS: Latanoprost 0.005 % Ophth Sol 2.5 ML DROPS 1 DROP EYE-BOTH (21:36)
[2021-08-05] VITALS (42 sets, daily range): BP systolic 89–136; BP diastolic 48–113; PULSE 46–158; RESP 14–25; TEMP 36.4–37.1; O2SAT 90–98; BMI 28.3
[2021-08-05] MEDS: Enoxaparin Sodium 80 MG/0.8 ML SYRINGE SUBCUT ×2 (01:09→13:56)
[2021-08-05] MEDS: dilTIAZem HCL 125 MG in 0.9 % Sodium Chloride 100 ML 15 MG IVCONT ×2 (03:08→10:02)
[2021-08-05 05:35] LABS: Basophils Percent Auto 0.1 % (0-2); Eosinophils Percent Auto 0.2 % (0-4); Hematocrit 41.9 % (42.0-52.0); Hematocrit 42.1 % (42.0-52.0); Hemoglobin 14.2 g/dl (14.0-18.0); Imm Gran Abs Auto 0.11 X10*3/uL (0.00-0.03); Imm Gran Pct Auto 0.8 % (0.0-0.4); Lymphocytes Absolute Auto 1.2 X10*3/uL (1.2-4.9); Lymphocytes Percent Auto 8.5 % (20-40); MANUAL DIFF FLAG SCAN; Mean Corpuscular HGB Conc 33.7 g/dl (31.0-36.0); Mean Corpuscular HGB Conc 33.9 g/dl (31.0-36.0); Mean Corpuscular Hemoglobin 32.6 pg (27.0-33.0); Mean Corpuscular Volume 96.1 fL (80.0-98.0); Mean Corpuscular Volume 96.8 fL (80.0-98.0); Mean Platelet Volume 11.5 fL (9.4-12.4); Monocytes Absolute Auto 1.7 X10*3/uL (0.1-1.2); Monocytes Percent Auto 12.1 % (2-11); NRBC Pct Auto 0.1 /100WBC (0.0-0.2); Neutrophils Absolute Auto 10.7 x10*3/uL (2.0-8.3); Neutrophils Percent Auto 78.3 % (45-73); Platelet Count 166 X10*3/uL (160-400); Platelet Count 167 X10*3/uL (160-400); Red Blood Count 4.35 X10*6/uL (4.60-5.80); Red Blood Count 4.36 X10*6/uL (4.60-5.80); Red Cell Distribution Width 13.6 % (11.0-16.0); Red Cell Distribution Width 13.7 % (11.0-16.0); SCAN SMEAR FLAG 1; White Blood Count 13.7 X10*3/uL (4.8-10.8); White Blood Count 13.9 X10*3/uL (4.8-10.8)
[2021-08-05 05:39] LABS: SLIDE REVIEW VERIFIED
[2021-08-05 05:45] LABS: Lactic Acid 1.5 mmol/L (0.5-2.0)
[2021-08-05 05:54] LABS: Alanine Aminotransferase 56 U/L (0-40); Albumin Level 3.6 g/dL (3.5-5.0); Alkaline Phosphatase 45 U/L (39-117); Anion Gap 13 (12-20); Aspartate Amino Transferase 22 U/L (5-37); Bilirubin Total 1.3 mg/dL (0.0-1.0); Blood Urea Nitrogen 27 mg/dL (9-16); C Reactive Protein 0.31 mg/dL (< or = 0.50); Calcium 8.9 mg/dL (8.4-10.2); Carbon Dioxide 26 mmol/L (22-29); Chloride 105 mmol/L (96-108); Estimated Glomerular Filt Rate 45; Glucose Random 105 mg/dL (60-115); Potassium 4.2 mmol/L (3.3-5.1); Sodium 140 mmol/L (135-145); Total Protein 5.6 g/dL (6.5-8.0)
[2021-08-05] MEDS: Omeprazole 20 MG CAPSULE.DR PO (05:54)
[2021-08-05] MEDS: Levothyroxine Sodium 100 MCG TABLET PO (05:54)
[2021-08-05] MEDS: Esmolol HCl/NaCl Iso 2,500 MG/250 ML IV.SOLN 64.64 MG IVCONT (05:55)
[2021-08-05 05:56] LABS: Alanine Aminotransferase 57 U/L (0-40); Albumin Level 3.6 g/dL (3.5-5.0); Alkaline Phosphatase 45 U/L (39-117); Anion Gap 13 (12-20); Aspartate Amino Transferase 21 U/L (5-37); Bilirubin Total 1.3 mg/dL (0.0-1.0); Blood Urea Nitrogen 26 mg/dL (9-16); Calcium 8.9 mg/dL (8.4-10.2); Carbon Dioxide 26 mmol/L (22-29); Chloride 104 mmol/L (96-108); Estimated Glomerular Filt Rate 45; Glucose Fasting 105 mg/dL (60-99); Potassium 4.2 mmol/L (3.3-5.1); Sodium 139 mmol/L (135-145); Total Protein 5.6 g/dL (6.5-8.0)
[2021-08-05 05:59] LABS: B Type Natriuretic Peptide 665 pg/mL (<100)
[2021-08-05 06:00] LABS: Troponin-I High Sensitivity 274.2 ng/L (<3.5-35.0)
--- NOTE | 2021-08-05 06:11 | PM.EVENT ---
Event Note Date of Service: 08/08/21 Event Note: The patient who was admitted with Afib RVR and episode of bradycardia while on Cardizem at 15mg/h; was transferred to the ICU; he had been placed on Cardizem IV as well as esmolol for rate control, despite ofthese, the heart rate continued to be anywhere between 110-130 beats per minute.? Around 07:00 o'clock last night, patient's blood pressure decreased to the low 90s and subsequently continued to decrease to 52/37 and the heart rate went up as high as 146 beats per minute.? Cardizem drip was increased several times but in a small dosages given the unknown episodes of bradycardia that happened earlier.? Despite of achieving a slower heart rate intermittently, the patient's blood pressure would not come up as suspected with happen with increase contractility and cardiac output. This require several times of intermittent and prolonged contact with the patient and ensuring he has no symptoms.? At some point he did admit that he was anxious given that the nurses would come in and out to take care of his current situation, I reassured the patient.? He does not have any underlying history of anxiety and currently denies any chest pain, shortness a breath, arm or jaw pain.? He does however mention that he has been battling a cough for the past 2 weeks in a nonproductive manner, denies fever chills, admits having sudden shortness of breath which quickly got worse reason for which he came to the hospital. Despite of multiple adjustments on esmolol and Cardizem, the patient's heart rate did improve slightly but the blood pressure with not be adequate therefore I decided to start him on Levophed.?These last medication also require several adjustments in at some point we had to stop esmolol given the patient's prolonged pauses as long as 3 seconds with intermittent runs of bradycardia, finally around 2 in the morning, the patient's heart rate and blood pressure seemed to stabilize with adjusted doses of Cardizem, esmolol and Levophed. A D-dimer came back just over 500, will add a troponin to the morning labs, the patient does have an elevated BNP and it is reported by doctors template the patient has a large right heart, this raises the question of pulmonary embolism even though this is less likely as the patient is on anticoagulation and the patient states he has been taking his medication faithfully without missing any doses. ?Nevertheless the patient does have renal dysfunction is not able to have a CT angiogram, he will benefit from nuclear ventilation perfusion scan, this was discussed with Dr. Keene. This incident had a high probability of a clinically significant, sudden, or life threatening deterioration of this patient's condition which required my full and direct attention, intervention and personal management. The total critical care time with direct contact with this patient was approximately ?90 minutes ?
[2021-08-05 06:14] LABS: Procalcitonin 0.19 ng/mL
--- NOTE | 2021-08-05 08:34 | PC.NURSE ---
0830 HR down to low 50's - turn Cardizem gtt off per Nuria Jansen NP. Okay to continue on Esmolol at 125.
[2021-08-05] MEDS: atenoloL 50 MG TABLET PO ×2 (09:13→12:44)
[2021-08-05] MEDS: Esmolol HCl/NaCl Iso 2,500 MG/250 ML IV.SOLN 25.86 MG IVCONT (10:01)
[2021-08-05] MEDS: guaiFENesin LA 600 MG TAB.ER.12H 1200 MG PO (10:02)
[2021-08-05] MEDS: clonazePAM 0.5 MG TABLET PO ×2 (10:02→18:21)
--- NOTE | 2021-08-05 10:19 | P.PNCA_ITS ---
Subjective Subjective Date of Service: 08/05/21 <GUERO Cutler - Last Filed: 08/05/21 12:44> 08/05/21 <Miguel A Garay MD - Last Filed: 08/05/21 15:16> Principal diagnosis: Afib, bradycardia, PNA, diastolic HF <GUERO Cutler - Last Filed: 08/05/21 12:44> Interval history: Cardiology follow up for the above. Seen at 0820. Today he reports breathing feels short at times with intermittent cough. Feels better with HOB elevated. No chest pains, palpitations, dizziness, edema. Tele showing afib, variable rate at present. Has Esmolol, Diltiazem, Norepinephrine infusion. BP 98/52 this am. Had some breakfast. Went for nuclear perfusion scan already this am. <GUERO Cutler - Last Filed: 08/05/21 12:44> Review of Systems Review of Systems as above <GUERO Cutler - Last Filed: 08/05/21 12:44> Yes all other systems are reviewed and are negative <GUERO Cutler - Last Filed: 08/05/21 12:44> Physical Exam Vital Signs: Last Vital Signs Temp 97.6 F 08/05/21 08:00 Pulse 129 H 08/05/21 10:00 Resp 15 08/05/21 10:00 BP 100/74 08/05/21 10:00 Pulse Ox 95 08/05/21 10:00 BMI result Body Mass Index 28.3 <GUERO Cutler - Last Filed: 08/05/21 12:44> Const General: cooperative, healthy appearing, alert and awake <GUERO Cutler - Last Filed: 08/05/21 12:44> Orientation/consciousness: patient oriented x3 <GUERO Cutler Last Filed: 08/05/21 12:44> Neck Neck: Yes normal visual inspection <GUERO Cutler Last Filed: 08/05/21 12:44> Resp Effort & Inspection: normal respiratory effort and able to speak in complete sentences <GUERO Cutler - Last Filed: 08/05/21 12:44> Auscultation: clear to auscultation bilaterally, rales (right lower lobes. ), no rhonchi and wheezes (few expiratory wheezes, less than yesterday) <Nuria JansenSAVC - Last Filed: 08/05/21 12:44> Cardio Rate: regular rate <Nuria InderjitLUANN - Last Filed: 08/05/21 12:44> Rhythm: abnormal rhythm irregularly irregular <Nuria InderjitLUANNC - Last Filed: 08/05/21 12:44> Heart sounds: S1 normal heart sound present and S2 normal heart sound present <[facility] InderjitLUANNC - Last Filed: 08/05/21 12:44> Peripheral pulses: Peripheral pulses 2+ throughout <Nuria JansenLUANN - Last Filed: 08/05/21 12:44> GI Inspection: Yes normal to inspection <Nuria InderjitLUANN - Last Filed: 08/05/21 12:44> Skin General skin exam: no rashes or lesions noted <Nuria InderjitLUANN - Last Filed: 08/05/21 12:44> Neuro General: patient oriented x3 <Nuria InderjitLUANN - Last Filed: 08/05/21 12:44> Extrem General: Yes normal to inspection and No edema <Nuriamatt JansenLUANN - Last Filed: 08/05/21 12:44> Objective Labs and Meds Result diagrams: : 08/05/21 05:26 08/05/21 05:26 <Nuria JansenSAV - Last Filed: 08/05/21 12:44> Lab results: Laboratory Results - last 24 hr 08/04/21 08/04/21 08/05/21 20:15 20:15 05: WBC 13.7 H RBC 4.35 L Hgb 14.2 Hct 42.1 MCV 96.8 MCH 32.6 MCHC 33.7 RDW 13.7 Plt Count 167 MPV 11.5 Immature Gran % (Auto) 0.8 H Neut % (Auto) 78.3 H Lymph % (Auto) 8.5 L [place] % (Auto) 12.1 H Eos % (Auto) 0.2 Baso % (Auto) 0.1 Lymph # (Auto) 1.2 [place] # (Auto) 1.7 H Eos # (Auto) 0.0 Baso # (Auto) 0.0 Abs Immat Gran (auto) 0.11 H Absolute Neuts (auto) 10.7 H Absolute Nucleated RBC 0.000 Nucleated RBC % (auto) 0.0 Smear Tech's Comments VERIFIED D-Dimer High Sensitivty 585 Sodium Potassium Chloride Carbon Dioxide Anion Gap BUN Creatinine Estim Creat Clear Calc Estimated GFR Random Glucose Fasting Glucose Lactic Acid Calcium Phosphorus Magnesium Total Bilirubin AST ALT Alkaline Phosphatase Troponin I High Sens C-Reactive Protein B-Natriuretic Peptide Total Protein Albumin Procalcitonin TSH 0.93 Digoxin 08/05/21 08/05/21 08/05/21 05:26 05:26 05:26 WBC 13.9 H RBC 4.36 L Hgb 14.2 Hct 41.9 L MCV 96.1 MCH 32.6 MCHC 33.9 RDW 13.6 Plt Count 166 MPV 11.0 Immature Gran % (Auto) Neut % (Auto) Lymph % (Auto) [place] % (Auto) Eos % (Auto) Baso % (Auto) Lymph # (Auto) [place] # (Auto) Eos # (Auto) Baso # (Auto) Abs Immat Gran (auto) Absolute Neuts (auto) Absolute Nucleated RBC 0.020 H Nucleated RBC % (auto) 0.1 Smear Tech's Comments D-Dimer High Sensitivty Sodium 139 Potassium 4.2 Chloride 104 Carbon Dioxide 26 Anion Gap 13 BUN 26 H Creatinine 1.52 H Estim Creat Clear Calc 45.0 Estimated GFR 45 Random Glucose Fasting Glucose 105 H Lactic Acid Calcium 8.9 Phosphorus Magnesium Total Bilirubin 1.3 H AST 21 ALT 57 H Alkaline Phosphatase 45 Troponin I High Sens C-Reactive Protein B-Natriuretic Peptide Total Protein 5.6 L Albumin 3.6 Procalcitonin TSH Digoxin 1.0 08/05/21 08/05/21 08/05/21 05:26 05:26 05:26 WBC RBC Hgb Hct MCV MCH MCHC RDW Plt Count MPV Immature Gran % (Auto) Neut % (Auto) Lymph % (Auto) [place] % (Auto) Eos % (Auto) Baso % (Auto) Lymph # (Auto) [place] # (Auto) Eos # (Auto) Baso # (Auto) Abs Immat Gran (auto) Absolute Neuts (auto) Absolute Nucleated RBC Nucleated RBC % (auto) Smear Tech's Comments D-Dimer High Sensitivty Sodium 140 Potassium 4.2 Chloride 105 Carbon Dioxide 26 Anion Gap 13 BUN 27 H Creatinine 1.52 H Estim Creat Clear Calc 45.0 Estimated GFR 45 Random Glucose 105 D Fasting Glucose Lactic Acid 1.5 Calcium 8.9 Phosphorus 4.0 Magnesium 2.0 Total Bilirubin 1.3 H AST 22 ALT 56 H Alkaline Phosphatase 45 Troponin I High Sens C-Reactive Protein 0.31 B-Natriuretic Peptide 665 H Total Protein 5.6 L Albumin 3.6 Procalcitonin TSH Digoxin 08/05/21 08/05/21 05:26 05:26 WBC RBC Hgb Hct MCV MCH MCHC RDW Plt Count MPV Immature Gran % (Auto) Neut % (Auto) Lymph % (Auto) [place] % (Auto) Eos % (Auto) Baso % (Auto) Lymph # (Auto) [place] # (Auto) Eos # (Auto) Baso # (Auto) Abs Immat Gran (auto) Absolute Neuts (auto) Absolute Nucleated RBC Nucleated RBC % (auto) Smear Tech's Comments D-Dimer High Sensitivty Sodium Potassium Chloride Carbon Dioxide Anion Gap BUN Creatinine Estim Creat Clear Calc Estimated GFR Random Glucose Fasting Glucose Lactic Acid Calcium Phosphorus Magnesium Total Bilirubin AST ALT Alkaline Phosphatase Troponin I High Sens 274.2 H* D C-Reactive Protein B-Natriuretic Peptide Total Protein Albumin Procalcitonin 0.19 TSH Digoxin <GUERO Cutler - Last Filed: 08/05/21 12:44> Imaging Radiologist's impression: Impressions Pulmonary Perfusion Imaging 08/05/21 08:15 IMPRESSION: Intermediate probability of pulmonary embolism. Predominantly bilateral lower lobe and right middle lobe subsegmental perfusion defects are present and while these could be due to atelectasis or pneumonitis, pulmonary embolism cannot be ruled out. If not contraindicated, further evaluation with CT angiography of the chest is recommended. <GUERO Cutler - Last Filed: 08/05/21 12:44> Progress Note: A&P Assessment and plan (1) Atrial fibrillation with RVR: Status: Acute <GUERO Cutler - Last Filed: 08/05/21 12:44> Assessment and Plan: Admit with sob. Being treated at present for bronchopneumonia. Has had afib RVR this admit. Had symptomatic bradycardia 5/8 with rate slowing meds while in ED. Yesterday had afib RVR and rate slowing meds were increased. He was given digoxin, atenolol, started on Diltiazem drip. Continued on Esmolol drip. Tele monitoring since last ailyn has shown afib with rates 80s- 110. There was a 3.3 sec pause at 1140 pm last ailyn and 3.2 sec pause at 0712 this am. Other shorter pause episodes seen. No afib pauses > 5 sec. Tele showing rates ranging 50 up to 80 at time of my visit. Discussed with Dr Garay. No indication for PPM at this time. Will wean Esmolol drip. Continue Atenolol. Reduce Diltazem drip. Start on Diltiazem 30mg q 6 hr. Will stop digoxin. Level done yesterday was 1.0. Ongoing tele monitoring. Continue Lovenox for anticoagulation. We will follow. <Nuria Jansen, GUERO - Last Filed: 08/05/21 12:44> Admit with sob. Being treated at present for bronchopneumonia. Has had afib RVR this admit. Had symptomatic bradycardia 5/8 with rate slowing meds while in ED. Yesterday had afib RVR and rate slowing meds were increased. He was given digoxin, atenolol, started on Diltiazem drip. Continued on Esmolol drip. Tele monitoring since last ailyn has shown afib with rates 80s- 110. There was a 3.3 sec pause at 1140 pm last ailyn and 3.2 sec pause at 0712 this am. Other shorter pause episodes seen. No afib pauses > 5 sec. Tele showing rates ranging 50 up to 80 at time of my visit. Discussed with Dr Garay. No indication for PPM at this time. Will wean Esmolol drip. Continue Atenolol. Reduce Diltazem drip. S tart on Diltiazem 30mg q 6 hr. Will stop digoxin. Level done yesterday was 1.0. Ongoing tele monitoring. Continue Lovenox for anticoagulation. We will follow. Patient seen and examined. Case discussed with Nuria Jansen. Atrial fibrillation with difficult control rate with again having episodes of low blood pressure and slow heart rate last night although pauses were only up to 3 seconds. No significant pauses greater than 5 seconds. As soon as his medications were then held his heart rate is started climbing back up again. Has been difficult to manage. I think rather than rapid changes in his medication more gradual changes medications to be pursued. Continue to treat his pulmonary condition with bronchodilators and mucolytics. Continue diuresis gradually. Strict intake and output chart needs to be pursued. Start oral Cardizem does and continue atenolol dose and will taper esmolol as well as Cardizem drip. Will closely monitor him. 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 However will continue to monitor clinically. Continue full oral anticoagulation with Lovenox at this point in time. <Miguel A Garay MD - Last Filed: 08/05/21 15:16> (2) Symptomatic bradycardia: Status: Acute <GUERO Cutler - Last Filed: 08/05/21 12:44> (3) (HFpEF) heart failure with preserved ejection fraction: Status: Acute <GUERO Cutler - Last Filed: 08/05/21 12:44> Assessment and Plan: Admit with sob. Being treated for bronchopneumonia and has some mild acute on chronic diastolic CHF.? BNP 1180 on admit. Treated initially with IV lasix. Has had some low BPs so daily lasix held. He did have wheezes yesterday and was given 1 dose Lasix 20mg IV. BP last ailyn was down into 70s sytolic and norepinephrine drip started and continues at low dose. BP this am 98/56. Breathing comfortable at present. He does report orthopnea and has intermittent cough. Some rales noted right base, less wheeze today. BP down to 665 - with his ongoing issues with Afib RVR and elevated Ddimer, a nuclear perfusion scan was completed this am to eval for PE. <GUERO Cutler - Last Filed: 08/05/21 12:44> (4) Pneumonia: Status: Acute <GUERO Cutler - Last Filed: 08/05/21 12:44> Time Spent With Patient Time: Total time spent is greater than 50% in coordination of care (as docum ented) at patient's floor/unit and/or counseling patient: <GUERO Cutler - Last Filed: 08/05/21 12:44> Progress Note: Quality Stroke Does the patient have a stroke diagnosis?: No <GUERO Cutler - Last Filed: 08/05/21 12:44> Procedures Date of Service Date of Service: 08/05/21 <GUERO Cutler - Last Filed: 08/05/21 12:44>
[2021-08-05] MEDS: Furosemide 40 MG TABLET PO (12:44)
[2021-08-05] MEDS: dilTIAZem HCL 30 MG TABLET PO (12:44)
[2021-08-05] MEDS: Potassium Chloride Packet 20 MEQ PACKET 40 MEQ PO (13:56)
[2021-08-05] MEDS: Magnesium Sulfate/D5W 1 GM/100 ML PIGGYBACK IV (13:57)
--- NOTE | 2021-08-05 14:07 | PM.CCPN ---
Subjective Subjective Date of Service: 08/05/21 Interval History: Mr. Oliveira was transferred to the ICU on August 03 because of bradycardia with hypotension, requiring a dopamine drip. The patient is a 76-year-old male with PMHx of atrial fibrillation (on Pradaxa and atenolol), HTN, HFpEF, CKD (baseline 1.4 - probably stage 3a CKD).? 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 Fully functional.? Former smoker, but no h/o COPD or asthma. Echo this past September showed mild left ventricular hypertrophy with normal LV cavity size and normal systolic function with EF 55-60%.? Right ventricular size was mildly increased, with normal function.? There was mild MR and mild TR.? The inferior vena cava was normal with greater than 50% inspiratory collapse.? RVSP estimate was 31 mm. The patient presented to the emergency room on August 03 with a 14 day h/o dry cough and progressive shortness of breath.? He?d seen his PCP and had a negative CXR, was given a rescue inhaler, and a Prednisone taper which he just finished.? He came to the ED on August 03 bec of severe COSTA.? Denied orthopnea or leg swelling.? No fever or chest pain.? Tested negative for COVID about a week prior. In the ED, he was in no acute distress.? Heart rate was 127, atrial fibrillation.? Blood pressure was 129/74, respiratory rate was 16, sat was 100% on supplemental oxygen.? He had expiratory wheezing throughout. Labs in the ED were notable for white count of 13, PT 14/1.3, BUN/creatinine 28/1.8, bicarb 23, total bilirubin 1.4, mild transaminase elevation, troponins 159 and 158, and BNP 1180.? Covid negative.? Chest x-ray maybe had some lingular atelectasis.? Noncontrast chest CT showed multiple foci of subtle wispy opacities concerning for early pneumonia.? There was a small volume of loculated ascites around the liver. The patient was treated with diltiazem bolus and drip in the ED, along w ceftriaxone and Lasix.? He was admitted to Medicine and put on ceftriaxone and Zithromax. As I understand it, while still in the ED, after the diltiazem drip was turned up to 15 mg/hour, the patient became bradycardic in the 30s and dropped his pressure to 70.? The diltiazem was stopped, a central line was placed and the patient was started on dopamine and transferred to the ICU.? The heart rate fide again, the dopamine was stopped, and the patient was given four doses of digoxin 0.25 mg, without effect.? He was therefore started on esmolol which got his heart rate down into the 110s range. Yesterday, HR was mostly in the 130-140s and we restarted him back on the diltiazem.? Also gave him two doses Lasix 20 mg.? HR overnight got into the 90s.? This morning we were up to 7.5 mg/hr on the diltiazem drip, along with esmolol at 150 ug.? Dig level this morning was 1.0.? HR this morning was 120s. In consultation w Dr. Garay, we have him on digoxin 0.125 mg daily, atenolol 50 mg qid, we dropped the esmolol to 75mg, put the diltiazem up to 15mg/hr, and started him on diltiazem 30 mg po qid.? Also put him on Klonopin 0.5 mg bid, which he said made him feel much better.? HR came down slowly into the 80?s and we tapered the esmolol to off.? Now only the diltiazem drip at 15 mg/hr, plus oral meds.? HR now averaging about 110.? BP 86/59.? Fully alert and oriented.? Breathing easy with Sat 96% on room air.? Afebrile.? No JVD at 30-40?.? Chest shows mild exp wheeze, with normal exp phase.? Heart tones are soft.? Rate and rhythm are very irregular with no murmur or gallops.? Abdomen is benign.? He has no peripheral edema. LABORATORY DATA:? Below.? Notably, white count is up to 13, creatinine is down slightly to 1.5, BNP is down to 665.? DDimer was 585. ?Troponin is up to 274 (from 181 36 hrs ago). Lung perfusion scan:? ?Intermediate probability of pulmonary embolism.? Predominantly bilateral lower lobe and right middle lobe subsegmental perfusion defects are present and while these could be due to atelectasis or pneumonitis, pulmonary embolism cannot be ruled out. ?If not contraindicated, further evaluation with CT angiography of the chest is recommended.? IMPRESSION: 1. Chronic atrial fibrillation, on Pradaxa and atenolol at home. 2. New afib w RVR.? Could be the cause of his acute heart failure or 2? to it.? Currently on atenolol 50 mg qid, digoxin 0.125 mg daily, diltiazem drip at 15mg/hr, and diltiazem 30 mg po qid.? Continuing the Lovenox 80 mg q12h. 3. Chronic HFpEF 4. Acute CHF.? In my opinion, the patient's respiratory symptoms are primarily due to heart failure, not pneumonia.? We?ll continue with Lasix 40 mg po daily. 5. Right heart failure.? Seen on his last echo.? It?s possible that his symptomatic COSTA is due in part or primarily to RHF (as opposed to LHF).? I think his small volume ascites is also most likely secondary to RHF. 6. R/o pulmonary embolism:? One of the main questions is why the patient had severe COSTA, but at rest had Sats up to 98% on room air.? The former is not explained by his CT scan, and the latter is inconsistent with pneumonia.? Furthermore, neither the CXR nor the CT are c/w left heart failure with pulmon edema.? The remaining two possibilities include RHF and PE.? PE would be unusual in a patient who is anticoagulated.? And the patient had a negative duplex scan about a week ago (done bec of leg pain).? But the DDimer, albeit nonspecific, is worrisome, as is the rising troponin.? Alternatively, the right heart on the echo yesterday was little different from his right heart on the echo from September of last year. ?Bottom line:? The lung perfusion scan showed intermediate probability of PE.? Discussed at length with Dr. Garay.? We?re anticoagulating the patient anyway, so there?s little to be gained by doing a CTPA, which would carry some risk, given his renal indices.? So we will hold off on CTPA, unless absolutely negative. 7. CKD, probably stage 3a. 8. BONI.? With his RHF and CKD, I?m concerned that he may have early cardiorenal syndrome.? But with his creat improving with diuresis, that is less likely.? Continue Lasix 40 mg bid till we push his creat up. 9. Bilat pulmon infiltrates on chest CT.? Clinically, the patient is fully nontoxic, and has a Sat up to 98% on room air, which is inconsistent with pneumonia.? I discussed the CT findings with Dr. Miranda.? In his opinion, the small, focal bilat wispy infiltrates are more suggestive of early pneumonia than CHF.? In view of that, we?ll continue a 5-day course of ceftriaxone, d/c the Zithromax. ADDENDUM: Had a 6-beat run of VT at about 2pm. Gave him 40 mEq KCL po, and 1 gram Mg IV. Critical Care Time (minutes): 70 Physical Exam Vital Signs: Vital Signs: Last Vital Signs Temp 97.6 F 08/05/21 08:00 Pulse 97 08/05/21 13:04 Resp 22 H 08/05/21 13:00 BP 91/57 L 08/05/21 13:00 Pulse Ox 93 08/05/21 13:00 BMI result Body Mass Index 28.3 Objective Data Labs CBC & Chem 7: 08/05/21 05:26 08/05/21 05:26 Labs: Laboratory Results - last 24 hr 08/04/21 08/04/21 08/05/21 20:15 20:15 05:26 WBC 13.7 H RBC 4.35 L Hgb 14.2 Hct 42.1 MCV 96.8 MCH 32.6 MCHC 33.7 RDW 13.7 Plt Count 167 MPV 11.5 Immature Gran % (Auto) 0.8 H Neut % (Auto) 78.3 H Lymph % (Auto) 8.5 L [place] % (Auto) 12.1 H Eos % (Auto) 0.2 Baso % (Auto) 0.1 Lymph # (Auto) 1.2 [place] # (Auto) 1.7 H Eos # (Auto) 0.0 Baso # (Auto) 0.0 Abs Immat Gran (auto) 0.11 H Absolute Neuts (auto) 10.7 H Absolute Nucleated RBC 0.000 Nucleated RBC % (auto) 0.0 Smear Tech's Comments VERIFIED D-Dimer High Sensitivty 585 Sodium Potassium Chloride Carbon Dioxide Anion Gap BUN Creatinine Estim Creat Clear Calc Estimated GFR Random Glucose Fasting Glucose Lactic Acid Calcium Phosphorus Magnesium Total Bilirubin AST ALT Alkaline Phosphatase Troponin I High Sens C-Reactive Protein B-Natriuretic Peptide Total Protein Albumin Procalcitonin TSH 0.93 Digoxin 08/05/21 08/05/21 08/05/21 05:26 05:26 05:26 WBC 13.9 H RBC 4.36 L Hgb 14.2 Hct 41.9 L MCV 96.1 MCH 32.6 MCHC 33.9 RDW 13.6 Plt Count 166 MPV 11.0 Immature Gran % (Auto) Neut % (Auto) Lymph % (Auto) [place] % (Auto) Eos % (Auto) Baso % (Auto) Lymph # (Auto) [place] # (Auto) Eos # (Auto) Baso # (Auto) Abs Immat Gran (auto) Absolute Neuts (auto) Absolute Nucleated RBC 0.020 H Nucleated RBC % (auto) 0.1 Smear Tech's Comments D-Dimer High Sensitivty Sodium 139 Potassium 4.2 Chloride 104 Carbon Dioxide 26 Anion Gap 13 BUN 26 H Creatinine 1.52 H Estim Creat Clear Calc 45.0 Estimated GFR 45 Random Glucose Fasting Glucose 105 H Lactic Acid Calcium 8.9 Phosphorus Magnesium Total Bilirubin 1.3 H AST 21 ALT 57 H Alkaline Phosphatase 45 Troponin I High Sens C-Reactive Protein B-Natriuretic Peptide Total Protein 5.6 L Albumin 3.6 Procalcitonin TSH Digoxin 1.0 08/05/21 08/05/21 08/05/21 05:26 05:26 05:26 WBC RBC Hgb Hct MCV MCH MCHC RDW Plt Count MPV Immature Gran % (Auto) Neut % (Auto) Lymph % (Auto) [place] % (Auto) Eos % (Auto) Baso % (Auto) Lymph # (Auto) [place] # (Auto) Eos # (Auto) Baso # (Auto) Abs Immat Gran (auto) Absolute Neuts (auto) Absolute Nucleated RBC Nucleated RBC % (auto) Smear Tech's Comments D-Dimer High Sensitivty Sodium 140 Potassium 4.2 Chloride 105 Carbon Dioxide 26 Anion Gap 13 BUN 27 H Creatinine 1.52 H Estim Creat Clear Calc 45.0 Estimated GFR 45 Random Glucose 105 D Fasting Glucose Lactic Acid 1.5 Calcium 8.9 Phosphorus 4.0 Magnesium 2.0 Total Bilirubin 1.3 H AST 22 ALT 56 H Alkaline Phosphatase 45 Troponin I High Sens C-Reactive Protein 0.31 B-Natriuretic Peptide 665 H Total Protein 5.6 L Albumin 3.6 Procalcitonin TSH Digoxin 08/05/21 08/05/21 05:26 05:26 WBC RBC Hgb Hct MCV MCH MCHC RDW Plt Count MPV Immature Gran % (Auto) Neut % (Auto) Lymph % (Auto) [place] % (Auto) Eos % (Auto) Baso % (Auto) Lymph # (Auto) [place] # (Auto) Eos # (Auto) Baso # (Auto) Abs Immat Gran (auto) Absolute Neuts (auto) Absolute Nucleated RBC Nucleated RBC % (auto) Smear Tech's Comments D-Dimer High Sensitivty Sodium Potassium Chloride Carbon Dioxide Anion Gap BUN Creatinine Estim Creat Clear Calc Estimated GFR Random Glucose Fasting Glucose Lactic Acid Calcium Phosphorus Magnesium Total Bilirubin AST ALT Alkaline Phosphatase Troponin I High Sens 274.2 H* D C-Reactive Protein B-Natriuretic Peptide Total Protein Albumin Procalcitonin 0.19 TSH Digoxin Microbiology Microbiology Results: Microbiology 08/03/21 13:07 Blood - Venous Blood Culture - Preliminary No growth after 24 hours. 08/03/21 13:07 Blood - Venous Blood Culture - Preliminary No growth after 24 hours. Quality Stroke Does the patient have a stroke diagnosis?: No VTE Prior VTE?: No VTE Risk Level:: Medical - moderate - high VTE Device Contraindication: Treatment Not Indicated VTE Drug Contraindication: N/A - Med Ordered Critical Care Time Critical Care Time (minutes): 60
--- NOTE | 2021-08-05 14:23 | PC.NURSE ---
Pt having long pauses up to 4 seconds. RN notified provider and Diltiazem gtt decreased from 15mg/hr to 7.5mg/hr per MD order. Will continue to monitor.
--- NOTE | 2021-08-05 14:29 | PC.NURSE ---
MD ordered RN to discontinue Diltiazem gtt at this time. Will continue to monitor.
[2021-08-05] MEDS: 0.9 % Sodium Chloride Flush 3 ML SYRINGE IVFLUSH (15:43)
[2021-08-05] MEDS: cefTRIAXone sodium 1 GM in 0.9 % Sodium Chloride 50 ML IV (15:43)
[2021-08-05] MEDS: Midodrine HCl 2.5 MG TABLET PO (15:43)
[2021-08-05] MEDS: DOPamine HCL/D5W 400 MG/250 ML PLAST..BAG 9.78 MG IVCONT (16:15)
[2021-08-05] MEDS: Atropine Sulfate 1 MG/10 ML SYRINGE 0.5 MG IVPUSH ×2 (16:40→16:45)
--- NOTE | 2021-08-05 16:42 | PC.NURSE ---
HR maintaining 40-50's AFib - 1615 patient complaining of new onset SOB, anxiety and nausea. DR Keene notified via telephone. Dopamine gtt at 3mcg/kg/min TO Dr Keene ordered and started at 1615. Dr Keene at bedside at 1630. O2 sat maintaining 87-89% - 4L NC applied. Atropine 1mg IV administered and Dopamine gtt increased to 5mcg/kg/min at [address] Keene. HR mainining 58-60, BP 101/69 MAP 78, 89% on 4L NC.
--- NOTE | 2021-08-05 16:46 | PM.CCN ---
Critical Care Event Note Summary Date of Service: 08/05/21 Code activated: No Narrative: Over the mid-afternoon, the patient's HR slowly dropped through the 70s and 60s and 50s into the high 40s, with the esmolol and diltiazem drips off. The heart rate stayed there, ranging 46-50, with a stable blood pressure, map greater than 65. The patient was initially asymptomatic. However, a short while ago he started complaining of shortness of breath and nausea. We immediately started him on dopamine. At 3 mcg, that had little effect on his heart rate. So I gave him atropine 0.5 mg which raised his heart rate to about 51, and then we gave him a 2nd dose of 0.5 mg which raise his heart rate to 57-61. Blood pressure is now up to 101/69. The patient's symptoms resolved. I put the dopamine up to 5 mcg. We are holding his atenolol and oral diltiazem. When his heart rate starts to rise, we will restart the oral diltiazem first. This incident had a high probability of a clinically significant, sudden, or life threatening deterioration of this patient's condition which required my full and direct attention, intervention and personal management. Critical Care Time (minutes): 15 Critical Care Time Critical Care Time (minutes): 30
[2021-08-05] MEDS: bisacodyL 5 MG TABLET.DR PO (18:21)
[2021-08-06] VITALS (23 sets, daily range): BP systolic 90–129; BP diastolic 65–90; PULSE 50–125; RESP 16–23; TEMP 36.6–37.3; O2SAT 93–100; BMI 28.2
[2021-08-06] MEDS: Enoxaparin Sodium 80 MG/0.8 ML SYRINGE SUBCUT ×3 (00:10→20:31)
[2021-08-06] MEDS: Latanoprost 0.005 % Ophth Sol 2.5 ML DROPS 1 DROP EYE-BOTH ×2 (00:11→21:43)
[2021-08-06] MEDS: guaiFENesin LA 600 MG TAB.ER.12H 1200 MG PO ×3 (00:12→20:31)
[2021-08-06] MEDS: clonazePAM 0.5 MG TABLET PO (00:12)
[2021-08-06] MEDS: 0.9 % Sodium Chloride Flush 3 ML SYRINGE IVFLUSH ×4 (00:15→20:32)
--- NOTE | 2021-08-06 02:00 | PC.NURSE ---
ASSUMED CARE OF PT AT 1900. PT A&O X3. ON DOPAMINE DRIP AT 2.5 MCG/KG/MIN. WEANED DOWN TO 1 MCG AND BRIEFLY TO 0.5 MCG BUT HEART RATE DROPPED TO 50'S SO DRIP INCREASED BACK UP TO 1 MCG. BP STABLE. O2 ON AT 2L VIA NC. O2 SAT MID 90'S BUT PT HAS SLEEP APNEA AND O SATS DROP TO LOW 80'S. Pt DTV at MN but not able to and has a distended abd. Bladder scanned for over 1000ml. Straight cath ordered and 1200 ml removed. Pt felt better but was anxious and couldn't sleep. Clonopin given as ordered prn. Pt slept in short naps. At 0145, pt was found trying to get oob. He was confused and didn't know how he got here. VBG's drawn and pending at this time. PA at bedside.
[2021-08-06 02:11] LABS: Venous Blood Gas Refer to POC result
[2021-08-06 02:13] LABS: VBG Base Excess 0.7 mmol/L; VBG HCO3 26 mmol/L (22-26); VBG pCO2 47 mmHg; VBG pH 7.35 (7.32-7.43); VBG pO2 73 mmHg
[2021-08-06 05:50] LABS: Alanine Aminotransferase 50 U/L (0-40); Albumin Level 3.7 g/dL (3.5-5.0); Alkaline Phosphatase 50 U/L (39-117); Anion Gap 12 (12-20); Aspartate Amino Transferase 19 U/L (5-37); Blood Urea Nitrogen 23 mg/dL (9-16); Calcium 9.2 mg/dL (8.4-10.2); Carbon Dioxide 26 mmol/L (22-29); Chloride 101 mmol/L (96-108); Creatinine Clr Calc Pharmacy 62.3; Estimated Glomerular Filt Rate > 60; Glucose Random 99 mg/dL (60-115); Magnesium 1.9 mg/dL (1.6-2.6); Potassium 3.9 mmol/L (3.3-5.1); Sodium 135 mmol/L (135-145); Total Protein 5.9 g/dL (6.5-8.0)
[2021-08-06 05:57] LABS: Troponin-I High Sensitivity 258.1 ng/L (<3.5-35.0)
[2021-08-06] MEDS: Levothyroxine Sodium 100 MCG TABLET PO (06:14)
[2021-08-06] MEDS: Omeprazole 20 MG CAPSULE.DR PO (06:14)
[2021-08-06 06:16] LABS: Hematocrit 42.5 % (42.0-52.0); Hemoglobin 14.3 g/dl (14.0-18.0); Mean Corpuscular HGB Conc 33.6 g/dl (31.0-36.0); Mean Corpuscular Hemoglobin 32.5 pg (27.0-33.0); Mean Corpuscular Volume 96.6 fL (80.0-98.0); Mean Platelet Volume 11.8 fL (9.4-12.4); Platelet Count 127 X10*3/uL (160-400); Red Cell Distribution Width 13.9 % (11.0-16.0); White Blood Count 13.6 X10*3/uL (4.8-10.8)
--- NOTE | 2021-08-06 06:31 | PC.NURSE ---
PT DTV #1 AT 0600. NO URGE TO VOID. BLADDER SCANNED FOR 930 ML. PA RUSSELL AWARE AND ORDERED LIMA. #16 FR LIMA CATH INSERTED WITHOUT DIFFICULTY. PT ZANDRA PROCEDURE WELL.
[2021-08-06] MEDS: Midodrine HCl 2.5 MG TABLET PO ×3 (08:42→16:29)
[2021-08-06] MEDS: Potassium Chloride Packet 20 MEQ PACKET 40 MEQ PO (10:40)
[2021-08-06] MEDS: Furosemide 40 MG TABLET PO (10:40)
--- NOTE | 2021-08-06 10:49 | P.PNCC_ITS ---
Subjective Subjective Date of Service: 08/06/21 Interval History: Mr. Oliveira was transferred to the ICU on August 03 because of bradycardia with hypotension, requiring a dopamine drip. The patient is a 76-year-old male with PMHx of atrial fibrillation (on Pradaxa and atenolol), HTN, HFpEF, CKD (baseline 1.4 - probably stage 3a CKD).? Also has a h/o urinary retention, seen prev by Dr. Castellanos.? 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 Fully functional.? Former smoker, but no h/o COPD or asthma. Echo this past September showed mild left ventricular hypertrophy with normal LV cavity size and normal systolic function with EF 55-60%.? Right ventricular size was mildly increased, with normal function.? There was mild MR and mild TR.? The inferior vena cava was normal with greater than 50% inspiratory collapse.? RVSP estimate was 31 mm. The patient presented to the emergency room on August 03 with a 14 day h/o dry cough and progressive shortness of breath.? He?d seen his PCP and had a negative CXR, was given a rescue inhaler, and a Prednisone taper which he just finished.? He came to the ED on August 03 bec of severe COSTA.? Denied orthopnea or leg swelling.? No fever or chest pain.? Tested negative for COVID about a week prior. In the ED, he was in no acute distress.? Heart rate was 127, atrial fibrillation.? Blood pressure was 129/74, respiratory rate was 16, sat was 100% on supplemental oxygen.? He had expiratory wheezing throughout. Labs in the ED were notable for white count of 13, PT 14/1.3, BUN/creatinine 28/1.8, bicarb 23, total bilirubin 1.4, mild transaminase elevation, troponins 159 and 158, and BNP 1180.? Covid negative.? Chest x-ray maybe had some lingular atelectasis.? Noncontrast chest CT showed multiple foci of subtle wispy opacities concerning for early pneumonia.? There was a small volume of loculated ascites around the liver. The patient was treated with diltiazem bolus and drip in the ED, along w ceftriaxone and Lasix.? He was admitted to Medicine and put on ceftriaxone and Zithromax. While still in the ED, after the diltiazem drip was turned up to 15 mg/hour, the patient became bradycardic in the 30s and dropped his pressure to 70.? The diltiazem was stopped, a central line was placed, the patient was started on dopaminem, and transferred to the ICU.? He was diuresed.? He required a Mayo catheter bec of inability to urinate.? The heart rate fide again, the dopamine was stopped, and the patient was given four doses of digoxin 0.25 mg, without effect.? He was therefore started on esmolol. Even at high dose, that failed to control his HR.? His atenolol was restarted at 50 mg qid, without effect.? The diltiazem drip was restarted.? We put him on Klonopin 0.5 mg tid bec he was very anxious.? Ultimately, his HR started to drop again yesterday afternoon, ultimately dropping into the high 40s.? He was given atropine, and after two 0.5 mg doses, the HR fide to 60.? After the atropine wore off, he required very lose dose dopamine, 0.5ug/k/min, to maintain his HR overnight.? Digoxin was d/c?d.? The dopamine was turned off this morning at 9am, with the HR in the 100-110 range.? We tried pulling his Mayo catheter yesterday but he had high residuals twice, and the Mayo catheter was put back in. The patient has been followed closely by Dr. Garay.? We started him on diltiazem 15 mg this morning.? He?s fully awake and alert.? HR is down to 68.? BP 111/86.? Breathing easy w Sat 96% on room air.? Afebrile.? No JVD at 40?.? Chest shows few bibasilar coarse crackles and maybe some tubular sounds at the very base.? No more wheezes.? Normal exp phase.? Abdomen is benign.? He has no peripheral edema. LABORATORY DATA:? Below.? Notably, creatinine down to 1.1 with diuresis, troponin is down to 258. Lung perfusion scan yesterday:? ?Intermediate probability of pulmonary embolism.? Predominantly bilateral lower lobe and right middle lobe subsegmental perfusion defects are present and while these could be due to atelectasis or pneumonitis, pulmonary embolism cannot be ruled out. ?If not contraindicated, further evaluation with CT angiography of the chest is recommended.? IMPRESSION: 1. Chronic atrial fibrillation.? Was on Pradaxa and atenolol at home. 2. New afib w RVR.? Could be the cause of his acute heart failure or 2? to it.? Had previously been rater controlled w atenolol 100 mg bid.? Now off the beta blockers and on only low dose diltiazem.? Seems very sensitive to the diltiazem.? Plan now is 15 mg bid, increase as tolerated if necessary.? Continuing the Lovenox 80 mg q12h until his rate is stable and we?re sure that h e won?t need a PPM.? Then convert him back to the Pradaxa. 3. Chronic HFpEF 4. Acute CHF.? In my opinion, the patient's respiratory symptoms were primarily due to heart failure, not pneumonia.? At home, he was on Lasix 20 mg daily.? I had him up to 40 mg daily here.? This morning cut him back to 20 mg daily. 5. Right heart failure.? It?s possible that his symptomatic COSTA is due in part or primarily to RHF (as opposed to LHF).? I think his small volume ascites is also most likely secondary to RHF. 6. R/o pulmonary embolism:? One of the main questions in this patient is why he had severe COSTA, but at rest had Sats up to 98% on room air.? The former is not explained by his CT scan, and the latter is inconsistent with pneumonia.? Furthermore, neither the CXR nor the CT are c/w left heart failure with pulmon edema.? The remaining two possibilities include RHF and PE.? PE would be unusual in a patient who is anticoagulated.? And the patient had a negative duplex scan about a week ago (done bec of leg pain).? But the DDimer, albeit nonspecific, is worrisome, as was the rising troponin.? That?s why we did the perfusion studay.? On the other hand, the right heart on the echo yesterday was little different from his right heart on the echo from September of last year. ? Bottom line:? The lung perfusion scan showed intermediate probability of PE.? Discussed at length with Dr. Garay.? We?re anticoagulating the patient anyway, so there?s little to be gained by doing a CTPA, which would carry some risk, given his renal indices.? So we decided to hold off on CTPA.? His renal indices are much improved today, we could do the CTPA if it becomes necessary. 7. CKD, probably stage 3a. 8. BONI.? His renal indices improved with diuresis, which is c/w RHF and fluid overload as his main problem.? Plan to continue with Lasix 20 mg daily. 9. Mild bilat pulmon infiltrates on chest CT.? Clinically, the patient has been fully nontoxic, and had Sats up to 98% on room air, which is inconsistent with pneumonia.? I discussed the CT findings with Dr. Miranda.? In his opinion, the small, focal bilat wispy infiltrates were more suggestive of early pneumonia than CHF.? In view of that, we?ve written him for a 5-day course of ceftriaxone. 10. Urinary retention.? D/w Dr. Branham.? He?ll need to go home with a Mayo catheter and then f/u with urology (either Dr. Branham or Dr. Castellanos) in 3-4 weeks for a voiding trial. Stable [place] [facility] I will sign out to the hospitalists. Critical Care Time (minutes): 0 Physical Exam Vital Signs: Vital Signs: Last Vital Signs Temp 97.8 F 08/06/21 08:00 Pulse 103 H 08/06/21 10:00 Resp 19 08/06/21 10:00 BP 100/77 08/06/21 10:00 Pulse Ox 96 08/06/21 10:00 BMI result Body Mass Index 28.2 Objective Data Labs CBC & Chem 7: 08/06/21 05:26 08/06/21 05:26 Labs: Laboratory Results - last 24 hr 08/06/21 08/06/21 08/06/21 02:04 05:26 05:26 WBC 13.6 H RBC 4.40 L Hgb 14.3 Hct 42.5 MCV 96.6 MCH 32.5 MCHC 33.6 RDW 13.9 Plt Count 127 L MPV 11.8 Absolute Nucleated RBC 0.000 Nucleated RBC % (auto) 0.0 VBG pH 7.35 VBG pCO2 47 VBG pO2 73 VBG HCO3 26 VBG O2 Saturation 91.0 VBG Base Excess 0.7 Sodium 135 Potassium 3.9 Chloride 101 Carbon Dioxide 26 Anion Gap 12 BUN 23 H Creatinine 1.10 Estim Creat Clear Calc 62.3 Estimated GFR > 60 Random Glucose 99 Calcium 9.2 Phosphorus 3.0 Magnesium 1.9 Total Bilirubin 2.0 H AST 19 ALT 50 H Alkaline Phosphatase 50 Troponin I High Sens Total Protein 5.9 L Albumin 3.7 08/06/21 05:26 WBC RBC Hgb Hct MCV MCH MCHC RDW Plt Count MPV Absolute Nucleated RBC Nucleated RBC % (auto) VBG pH VBG pCO2 VBG pO2 VBG HCO3 VBG O2 Saturation VBG Base Excess Sodium Potassium Chloride Carbon Dioxide Anion Gap BUN Creatinine Estim Creat Clear Calc Estimated GFR Random Glucose Calcium Phosphorus Magnesium Total Bilirubin AST ALT Alkaline Phosphatase Troponin I High Sens 258.1 H* Total Protein Albumin Microbiology Microbiology Results: Microbiology 08/03/21 13:07 Blood - Venous Blood Culture - Preliminary No growth after 48 hours. 08/03/21 13:07 Blood - Venous Blood Culture - Preliminary No growth after 48 hours. Quality Stroke Does the patient have a stroke diagnosis?: No VTE Prior VTE?: No VTE Risk Level:: Medical - moderate - high VTE Device Contraindication: Treatment Not Indicated VTE Drug Contraindication: N/A - Med Ordered
[2021-08-06] MEDS: Magnesium Oxide 400 MG TABLET PO ×2 (10:50→20:31)
--- NOTE | 2021-08-06 11:27 | PM.PNCARD ---
Subjective Subjective Date of Service: 08/06/21 Principal diagnosis: Afib, bradycardia, PNA, diastolic HF Interval history: noted overnight events. Patient had again response with slow heart rate yesterday with multiple different medications including IV Cardizem, p.o. Cardizem and atenolol. Low blood pressure but this corrected quickly. Was given dopamine overnight at a low-dose. This morning dopamine has been discontinued. Heart rate is slightly elevated 110 beats per minute blood pressure is stable. He said he feels a lot better. Still having cough and trying to bring up the phlegm. Has been diuresing well. Developed bladder retention overnight, currently having Mayo catheter. Was started on doxazosin. He had some episode of confusion last night. Review of Systems Constitutional: Reports no additional constitutional complaints Eyes: Reports no additional eye complaints Cardiovascular: Denies chest pain, Denies lightheadedness, Denies Loss of Consciousness, Denies palpitations and Reports dyspnea Respiratory: Reports cough, Reports excessive phlegm production and Reports dyspnea Gastrointestinal: Reports no additional gastrointestinal complaints Genitourinary: Reports no additional male genitourinary complaints Musculoskeletal: Reports no additional musculoskeletal complaints Skin/Breast: Reports system reviewed and no additional complaints, except as docu Reports system reviewed and no additional complaints, except as documented Endocrine: Denies palpitations Physical Exam Vital Signs: Last Vital Signs Temp 97.8 F 08/06/21 08:00 Pulse 58 08/06/21 11:00 Resp 20 08/06/21 11:00 BP 111/86 08/06/21 11:00 Pulse Ox 100 08/06/21 11:00 BMI result Body Mass Index 28.2 Const General: cooperative, comfortable, in distress mild and respiratory and anxious Nutritional Appearance: overweight Orientation/consciousness: patient oriented x3 Neck Neck: Yes no JVD Resp Effort & Inspection: normal respiratory effort Auscultation: diminished lung sounds and bronchovesicular breath sounds bilateral (bases) Cardio Jugular venous distension: no JVD Rhythm: abnormal rhythm irregularly irregular Heart sounds: S1 normal heart sound present, S2 normal heart sound present, no click, no gallops, no murmurs and no rubs GI Auscultation: normal bowel sounds Skin General skin exam: no rashes or lesions noted Neuro General: patient oriented x3 and no focal motor deficits Extrem General: Yes no clubbing, cyanosis or edema Objective Labs and Meds Result diagrams: 08/06/21 05:26 08/06/21 05:26 Lab results: Laboratory Results - last 24 hr 08/06/21 08/06/21 08/06/21 02:04 05:26 05:26 WBC 13.6 H RBC 4.40 L Hgb 14.3 Hct 42.5 MCV 96.6 MCH 32.5 MCHC 33.6 RDW 13.9 Plt Count 127 L MPV 11.8 Absolute Nucleated RBC 0.000 Nucleated RBC % (auto) 0.0 VBG pH 7.35 VBG pCO2 47 VBG pO2 73 VBG HCO3 26 VBG O2 Saturation 91.0 VBG Base Excess 0.7 Sodium 135 Potassium 3.9 Chloride 101 Carbon Dioxide 26 Anion Gap 12 BUN 23 H Creatinine 1.10 Estim Creat Clear Calc 62.3 Estimated GFR > 60 Random Glucose 99 Calcium 9.2 Phosphorus 3.0 Magnesium 1.9 Total Bilirubin 2.0 H AST 19 ALT 50 H Alkaline Phosphatase 50 Troponin I High Sens Total Protein 5.9 L Albumin 3.7 08/06/21 05:26 WBC RBC Hgb Hct MCV MCH MCHC RDW Plt Count MPV Absolute Nucleated RBC Nucleated RBC % (auto) VBG pH VBG pCO2 VBG pO2 VBG HCO3 VBG O2 Saturation VBG Base Excess Sodium Potassium Chloride Carbon Dioxide Anion Gap BUN Creatinine Estim Creat Clear Calc Estimated GFR Random Glucose Calcium Phosphorus Magnesium Total Bilirubin AST ALT Alkaline Phosphatase Troponin I High Sens 258.1 H* Total Protein Albumin Progress Note: A&P Assessment and plan (1) Atrial fibrillation with RVR: Status: Acute Assessment and Plan: Atrial fibrillation with much better rate control at this point in time. Multifactorial with improving medical condition as well as improving anxiety. Also would avoid atenolol at this point time. Start on low-dose Cardizem 15 mg p.o. q.6 hours. Will continue to monitor closely. Eventually out of bed to chair and try to move him to was step-down unit if his heart rate is better controlled. Avoid digoxin and atenolol at this point in time. Continue Lovenox for now. Unless he has significant bradycardia, I do not think he needs a pacemaker at this point in time. Was discussed with him and his and they are agreeable at this point in time. (2) (HFpEF) heart failure with preserved ejection fraction: Status: Acute Assessment and Plan: Heart failure preserved ejection fraction admission, most likely precipitated by atrial fibrillation rapid ventricular response and acute medical illness with bronchopneumonia. At this point time has diuresed well. Clinically appears to be more euvolemic. Continue Lasix 40 mg daily. His renal function also has improved. Check BNP tomorrow to see that it will be trending towards baseline in the 200s. Blood pressure is well optimized. Heart rate control as above. Continue treat underlying pulmonary condition. Recommend incentive spirometry and out of bed to chair and chest PT. (3) Pneumonia: Status: Acute Assessment and Plan: management as per the medical team. Will follow with you Time Spent With Patient Time: Total time spent is greater than 50% in coordination of care (as documented) at patient's floor/unit and/or counseling patient: Progress Note: Quality Stroke Does the patient have a stroke diagnosis?: No Procedures Date of Service Date of Service: 08/06/21
[2021-08-06 12:47] LABS: Bilirubin Direct 0.8 mg/dL (0.0-0.5)
[2021-08-06] MEDS: cefTRIAXone sodium 1 GM in 0.9 % Sodium Chloride 50 ML IV (16:30)
[2021-08-06] MEDS: Tamsulosin HCL 0.4 MG CAPSULE PO (20:31)
[2021-08-06] MEDS: dilTIAZem HCL 30 MG TABLET 15 MG PO (20:32)
[2021-08-07 03:26] VITALS: BP 109/77; PULSE 88; RESP 17; TEMP 36.4; O2SAT 97
[2021-08-07] MEDS: dilTIAZem HCL 30 MG TABLET 15 MG PO (04:18)
[2021-08-07] MEDS: Omeprazole 20 MG CAPSULE.DR PO (06:00)
[2021-08-07] MEDS: Levothyroxine Sodium 100 MCG TABLET PO (06:00)
[2021-08-07 08:00] VITALS: BP 104/73; PULSE 158; RESP 20; TEMP 36.3; O2SAT 96
--- NOTE | 2021-08-07 08:46 | P.PNIM_ITS ---
Subjective Subjective Date of Service: 08/07/21 Interval History: f/u on AFIB with RVR, bradycardia, HF, hypotension and treated in the ICU Interval history: he feels better, HR has been in a40s, but assymptmatic Review of Systems no chest pain, no palpitation, no sob Physical Exam Vital Signs: Vital Signs: Last Vital Signs Temp 97.4 F 08/07/21 08:00 Pulse 158 H 08/07/21 08:00 Resp 20 08/07/21 08:00 BP 104/73 08/07/21 08:00 Pulse Ox 96 08/07/21 08:00 BMI result Body Mass Index 28.2 Const: Other: General: AO X 3, no acute distress Resp: CTA bilateral CVS: S1,S2 iregular iregulard GI: +BS, NT, no distention Skin: No rash : berg in with dark urine, some old clot Neuro: motor grossly intact Psych: appropriate affect Objective Data Active Medications Bisacodyl (Bisacodyl 5 Mg Tablet.Dr) 5 mg PO DAILY PRN PRN Reason: Constipation Last Admin: 08/05/21 18:21 Dose: 5 mg Documented by: PALOMO Clonazepam (Clonazepam 0.5 Mg Tablet) 0.5 mg PO TID PRN PRN Reason: Anxiety Last Admin: 08/06/21 00:12 Dose: 0.5 mg Documented by: LUIS E Diltiazem HCl (Diltiazem Hcl 30 Mg Tablet) 15 mg PO BID [facility]; Protocol Last Admin: 08/07/21 04:18 Dose: 15 mg Documented by: ALEXSANDRA Diltiazem HCl (Diltiazem Hcl 50 Mg/10 Ml Vial) 10 mg IVPUSH ONCE ONE Stop: 08/07/21 08:45 Enoxaparin Sodium (Enoxaparin Sodium 80 Mg/0.8 Ml Syringe) 80 mg SUBCUT Q12H KSENIA Last Admin: 08/06/21 20:31 Dose: 80 mg Documented by: ALEXSANDRA Furosemide (Furosemide 40 Mg Tablet) 40 mg PO DAILY [facility]; Protocol Last Admin: 08/06/21 10:40 Dose: 40 mg Documented by: CASSI Guaifenesin (Guaifenesin La 600 Mg Tab.Er.12h) 1,200 mg PO BID [facility] Last Admin: 08/06/21 20:31 Dose: 1,200 mg Documented by: ALEXSANDRA Ceftriaxone Sodium 1 gm/ (Sodium Chloride) 50 mls @ 100 mls/hr IV Q24H [facility] Stop: 08/08/21 23:59 Last Infusion: 08/06/21 17:11 Dose: 0 mls/hr Documented by: JACOB Latanoprost (Latanoprost 0.005 % Ophth Amanda 2.5 Ml Drops) 1 drop EYE-BOTH BEDTIME [facility] Last Admin: 08/06/21 21:43 Dose: 1 drop Documented by: ALEXSANDRA Levalbuterol HCl (Levalbuterol Hcl 1.25 Mg/0.5 Ml Vial.Neb) 1.25 mg INHALE RQ4H WHILE AWAKE PRN PRN Reason: Wheezing Last Admin: 08/06/21 03:41 Dose: 1.25 mg Documented by: WING Levothyroxine Sodium (Levothyroxine Sodium 100 Mcg Tablet) 100 mcg PO DAILY@0600 [facility] Last Admin: 08/07/21 06:00 Dose: 100 mcg Documented by: FLOR Magnesium Oxide (Magnesium Oxide 400 Mg Tablet) 400 mg PO BID [facility] Last Admin: 08/06/21 20:31 Dose: 400 mg Documented by: ALEXSANDRA Midodrine (Midodrine Hcl 2.5 Mg Tablet) 2.5 mg PO TIDWM [facility] Last Admin: 08/06/21 16:29 Dose: 2.5 mg Documented by: JACOB Omeprazole (Omeprazole 20 Mg Capsule.) 20 mg PO DAILY@0630 [facility] Last Admin: 08/07/21 06:00 Dose: 20 mg Documented by: FLOR Pharmacy Consult (Consult Rx Perform Med Rec) 1 each MISCELLANE ONCE PRN PRN Reason: Consult order Sodium Chloride (0.9 % Sodium Chloride Flush 3 Ml Syringe) 3 ml IVFLUSH QSHIFT [facility] Last Admin: 08/06/21 20:32 Dose: 3 ml Documented by: ALEXSANDRA Tamsulosin HCl (Tamsulosin Hcl 0.4 Mg Capsule) 0.4 mg PO BEDTIME [facility] Last Admin: 08/06/21 20:31 Dose: 0.4 mg Documented by: ALEXSANDRA Labs CBC & Chem 7: 08/06/21 05:26 08/06/21 05:26 Labs: Laboratory Results - last 24 hr 08/06/21 05:26 Direct Bilirubin 0.8 H Microbiology Microbiology Results: Microbiology 08/06/21 10:52 Gram Stain - Final Sputum - Expectorated Assessment and Plan (1) Atrial fibrillation with RVR: Status: Acute (2) Symptomatic bradycardia: Status: Acute (3) Acute exacerbation of congestive heart failure: Status: Acute Plan 76-year-old male with PMHx of atrial fibrillation (on Pradaxa and atenolol), HTN, HFpEF, CKD (baseline 1.4 - probably stage 3a CKD).? Also has a h/o urinary retention, seen prev by Dr. Castellanos.? 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 Fully functional.? Former smoker, but no h/o COPD or asthma presented to hospital with shortness of breath and was noted to have PNA, afib with RVR and later developped hypOtension and bradycardia and transffered to ICU ?1. Chronic atrial fibrillation. Was on Pradaxa and atenolol at home. ?2. New afib w RVR.? Could be the cause of his acute heart failure or 2? to it.? Had previously been rater controlled w atenolol 100 mg bid.? Now off the beta blockers and on only low dose diltiazem.? Seems very sensitive to the diltiazem.? Plan now is 15 mg bid, increase as tolerated if necessary but given that he is very sensitive to this, will consult with cardiology before making adjustment. .? Continuing the Lovenox 80 mg q12h until his rate is stable and we?re sure that he won?t need a PPM.? He may well need PPM ?3. Chronic HFpEF--may triggered by AFIB, compensated at this time. Continue present dose of Lasix ?5. Right heart failure.? It?s possible that his symptomatic COSTA is due in part or primarily to RHF (as opposed to LHF).? I think his small volume ascites is also most likely secondary to RHF. ?6. R/o pulmonary embolism:? One of the main questions in this patient is why he had severe COSTA, but at rest had Sats up to 98% on room air.? The former is not explained by his CT scan, and the latter is inconsistent with pneumonia.? Furthermore, neither the CXR nor the CT are c/w left heart failure with pulmon edema.? The remaining two possibilities include RHF and PE.? PE would be unusual in a patient who is anticoagulated.? And the patient had a negative duplex scan about a week ago (done bec of leg pain).? But the DDimer, albeit nonspecific, is worrisome, as was the rising troponin.? That?s why we did the perfusion studay.? On the other hand, the right heart on the echo yesterday was little different from his right heart on the echo from September of last year. ? Bottom line:? The lung perfusion scan showed intermediate probability of PE.? Discussed at length with Dr. Garay.? We?re anticoagulating the patient anyway, so there?s little to be gained by doing a CTPA, which would carry some risk, given his renal indices.? So we decided to hold off on CTPA.? His renal indices are much improved today, we could do the CTPA if it becomes necessary. ? 7. CKD, probably stage 3a. ?8. BONI.? His renal indices improved with diuresis, which is c/w RHF and fluid overload as his main problem.? Plan to continue with Lasix 20 mg daily. ?9. Mild bilat pulmon infiltrates on chest CT.? Clinically, the patient has been fully nontoxic, and had Sats up to 98% on room air, which is inconsistent with pneumonia.? I discussed the CT findings with Dr. Miranda.? In his opinion, the small, focal bilat wispy infiltrates were more suggestive of early pneumonia than CHF.? In view of that, we?ve written him for a 5-day course of ceftriaxone. ?10. Urinary retention.? D/w Dr. Branham.? He?ll need to go home with a Berg catheter and then f/u with urology (either Dr. Branham or Dr. Castellanos) in 3-4 weeks for a voiding trial Quality Stroke Does the patient have a stroke diagnosis?: No VTE Prior VTE?: No VTE Risk Level:: Medical - moderate - high VTE Device Contraindication: Treatment Not Indicated VTE Drug Contraindication: N/A - Med Ordered
[2021-08-07] MEDS: dilTIAZem HCL 30 MG TABLET PO ×4 (09:37→20:06)
[2021-08-07] MEDS: Furosemide 40 MG TABLET PO (09:38)
[2021-08-07] MEDS: Midodrine HCl 2.5 MG TABLET PO ×3 (09:38→17:31)
[2021-08-07] MEDS: guaiFENesin LA 600 MG TAB.ER.12H 1200 MG PO ×2 (09:39→20:06)
[2021-08-07] MEDS: Enoxaparin Sodium 80 MG/0.8 ML SYRINGE SUBCUT ×2 (09:39→20:06)
[2021-08-07] MEDS: Magnesium Oxide 400 MG TABLET PO ×2 (09:39→20:06)
[2021-08-07] MEDS: 0.9 % Sodium Chloride Flush 3 ML SYRINGE IVFLUSH ×3 (09:40→20:07)
[2021-08-07] MEDS: bisacodyL 5 MG TABLET.DR PO (10:12)
[2021-08-07] MEDS: clonazePAM 0.5 MG TABLET PO (11:13)
[2021-08-07 11:16] VITALS: BP 97/61; PULSE 123; RESP 19; TEMP 36.3; O2SAT 95
--- NOTE | 2021-08-07 11:28 | P.PNCA_ITS ---
Subjective Subjective Date of Service: 08/07/21 Principal diagnosis: Afib, bradycardia, PNA, diastolic HF Interval history: Patient this morning started having rapid ventricular response to atrial fibrillation. He said he has been moving around from bed to chair and getting may be responsible 1st fast started. Does not feel any symptoms related to it. Shortness of breath is also improved. and patient worried about the Mayo catheter. He has also not received his Klonopin. Hemodynamically stable. He denies any lightheadedness, syncope. Blood pressure has been stable. Review of Systems Constitutional: Reports no additional constitutional complaints Eyes: Reports no additional eye complaints Cardiovascular: Reports no additional cardiovascular complaints Respiratory: Reports no additional respiratory complaints Gastrointestinal: Reports no additional gastrointestinal complaints Genitourinary: Reports no additional male genitourinary complaints Musculoskeletal: Reports no additional musculoskeletal complaints Physical Exam Vital Signs: Last Vital Signs Temp 97.3 F 08/07/21 11:16 Pulse 123 H 08/07/21 11:16 Resp 19 08/07/21 11:16 BP 97/61 08/07/21 11:16 Pulse Ox 95 08/07/21 11:16 BMI result Body Mass Index 28.2 Const General: cooperative, comfortable, no acute distress, alert and awake Nutritional Appearance: overweight Orientation/consciousness: patient oriented x3 Neck Neck: Yes trachea midline, Yes supple and Yes no JVD Chest Chest palpation & inspection: normal inspection of the chest Resp Effort & Inspection: normal respiratory effort Auscultation: clear to auscultation bilaterally Cardio Jugular venous distension: no JVD Rate: tachycardic Rhythm: abnormal rhythm irregularly irregular Heart sounds: S1 normal heart sound present, S2 normal heart sound present, no click, no gallops and no murmurs GI Auscultation: normal bowel sounds Neuro General: patient oriented x3 and no focal motor deficits Extrem General: Yes no clubbing, cyanosis or edema Objective Labs and Meds Result diagrams: 08/06/21 05:26 08/06/21 05:26 Lab results: Laboratory Results - last 24 hr 08/06/21 05:26 Direct Bilirubin 0.8 H Progress Note: A&P Assessment and plan (1) Atrial fibrillation with RVR: Status: Acute Assessment and Plan: Atrial fibrillation rapid ventricular response, recurrent. This could be multifactorial. Reduction in his medication dose as well as anxiety. I prefer him to increase Cardizem to 30 mg q.6 hours at this point in time. Blood pressure is on the softer side. Also treated with Klonopin for his anxiety. I think this should help with his ventricular rate because he has in the past responded to this therapy. Will hold off on atenolol therapy at this point time. Definitely there is no evidence of bradycardia at this point time and he would not benefit from pacing therapy at this point in time. Continue Lovenox for now. He cannot undergo cardioversion he has had atrial fibrillation for greater than 5 years and has significantly enlarged biatrial chamber size and likelihood of success of maintaining rhythm is extremely low. In the past rhythm control has failed for him as well. If his heart rate remains difficult control with slowly at atenolol to his regimen as well. (2) (HFpEF) heart failure with preserved ejection fraction: Status: Acute Assessment and Plan: Heart failure preserved ejection fraction precipitated by his recent broncho pneumonia as well as rapid atrial fibrillation. Heart rate is not well control and despite that his heart failure syndrome appears to be adequate. Continue p.o. Lasix. Strict intake and output chart needs to be pursued. Please check BMP and BNP today. Pursue more aggressive rate control. Will continue to follow with you Time Spent With Patient Time: Total time spent is greater than 50% in coordination of care (as documented) at patient's floor/unit and/or counseling patient: Progress Note: Quality Stroke Does the patient have a stroke diagnosis?: No Procedures Date of Service Date of Service: 08/07/21
[2021-08-07 11:56] LABS: Anion Gap 12 (12-20); Blood Urea Nitrogen 24 mg/dL (9-16); Carbon Dioxide 25 mmol/L (22-29); Chloride 100 mmol/L (96-108); Creatinine Clr Calc Pharmacy 53.5; Estimated Glomerular Filt Rate 55; Glucose Random 130 mg/dL (60-115); Sodium 133 mmol/L (135-145)
[2021-08-07] MEDS: Metoprolol Tartrate 12.5 MG HALFTAB PO ×2 (12:53→20:05)
[2021-08-07 13:57] LABS: B Type Natriuretic Peptide 249 pg/mL (<100)
--- NOTE | 2021-08-07 15:09 | PC.NURSE ---
TLC from RIJ removed per Md order,tip intact, no bleeding or s/s of infection. Pressure dsg applied, patient tolerated procedure well.
[2021-08-07 15:19] VITALS: BP 140/82; PULSE 107; RESP 20; TEMP 36.7; O2SAT 94
[2021-08-07] MEDS: cefTRIAXone sodium 1 GM in 0.9 % Sodium Chloride 50 ML IV (17:31)
[2021-08-07 19:08] VITALS: BP 117/66; PULSE 80; RESP 20; TEMP 36.2; O2SAT 96
[2021-08-07] MEDS: Tamsulosin HCL 0.4 MG CAPSULE PO (20:05)
[2021-08-07] MEDS: Latanoprost 0.005 % Ophth Sol 2.5 ML DROPS 1 DROP EYE-BOTH (20:06)
[2021-08-07 23:52] VITALS: BP 113/81; PULSE 73; RESP 18; TEMP 36.8; O2SAT 98
[2021-08-08] VITALS (8 sets, daily range): BP systolic 96–110; BP diastolic 64–90; PULSE 75–105; RESP 18–20; TEMP 36.1–36.9; O2SAT 94–97
[2021-08-08] MEDS: Metoprolol Tartrate 12.5 MG HALFTAB PO ×3 (01:14→12:41)
[2021-08-08] MEDS: Omeprazole 20 MG CAPSULE.DR PO (06:09)
[2021-08-08] MEDS: Levothyroxine Sodium 100 MCG TABLET PO (06:09)
[2021-08-08] MEDS: dilTIAZem HCL 30 MG TABLET PO ×4 (09:40→19:55)
[2021-08-08] MEDS: Enoxaparin Sodium 80 MG/0.8 ML SYRINGE SUBCUT ×2 (09:40→19:48)
[2021-08-08] MEDS: Magnesium Oxide 400 MG TABLET PO ×2 (09:41→19:47)
[2021-08-08] MEDS: Midodrine HCl 2.5 MG TABLET PO ×3 (09:41→17:07)
[2021-08-08] MEDS: guaiFENesin LA 600 MG TAB.ER.12H 1200 MG PO ×2 (09:41→19:48)
[2021-08-08] MEDS: 0.9 % Sodium Chloride Flush 3 ML SYRINGE IVFLUSH ×3 (09:41→19:56)
[2021-08-08] MEDS: Furosemide 40 MG TABLET PO (09:41)
--- NOTE | 2021-08-08 09:42 | HO.PM.IMPN ---
Subjective Subjective Date of Service: 08/08/21 Interval History: f/u on AFIB with RVR, bradycardia, HF, hypotension and treated in the ICU Interval history:feels better, HR still flucutuating was back up to 140s this morning. Review of Systems no chest pain, no palpitation, no sob Physical Exam Vital Signs: Vital Signs: Last Vital Signs Temp 98.4 F 08/08/21 07:14 Pulse 79 08/08/21 07:14 Resp 20 08/08/21 07:14 BP 107/75 08/08/21 07:14 Pulse Ox 96 08/08/21 07:14 BMI result Body Mass Index 28.2 Const: Other: General: AO X 3, no acute distress Resp: CTA bilateral CVS: S1,S2 iregular GI: +BS, NT, no distention Skin: No rash Neuro: motor grossly intact Psych: appropriate affect Objective Data Active Medications Bisacodyl (Bisacodyl 5 Mg Tablet.Dr) 5 mg PO DAILY PRN PRN Reason: Constipation Last Admin: 08/07/21 10:12 Dose: 5 mg Documented by: LYSShivani Clonazepam (Clonazepam 0.5 Mg Tablet) 0.5 mg PO TID PRN PRN Reason: Anxiety Last Admin: 08/06/21 00:12 Dose: 0.5 mg Documented by: LUIS E Diltiazem HCl (Diltiazem Hcl 30 Mg Tablet) 30 mg PO QID [facility]; Protocol Last Admin: 08/08/21 09:40 Dose: 30 mg Documented by: BROJesse Enoxaparin Sodium (Enoxaparin Sodium 80 Mg/0.8 Ml Syringe) 80 mg SUBCUT Q12H [facility] Last Admin: 08/08/21 09:40 Dose: 80 mg Documented by: DAVY Furosemide (Furosemide 40 Mg Tablet) 40 mg PO DAILY [facility]; Protocol Last Admin: 08/08/21 09:41 Dose: 40 mg Documented by: BROJesse Guaifenesin (Guaifenesin La 600 Mg Tab.Er.12h) 1,200 mg PO BID [facility] Last Admin: 08/08/21 09:41 Dose: 1,200 mg Documented by: DAVY Ceftriaxone Sodium 1 gm/ (Sodium Chloride) 50 mls @ 100 mls/hr IV Q24H [facility] Stop: 08/08/21 23:59 Last Infusion: 08/07/21 18:43 Dose: 0 mls/hr Documented by: BOBBY Latanoprost (Latanoprost 0.005 % Ophth Amanda 2.5 Ml Drops) 1 drop EYE-BOTH BEDTIME [facility] Last Admin: 08/07/21 20:06 Dose: 1 drop Documented by: ALEXSANDRA Levalbuterol HCl (Levalbuterol Hcl 1.25 Mg/0.5 Ml Vial.Neb) 1.25 mg INHALE RQ4H WHILE AWAKE PRN PRN Reason: Wheezing Last Admin: 08/06/21 03:41 Dose: 1.25 mg Documented by: WING Levothyroxine Sodium (Levothyroxine Sodium 100 Mcg Tablet) 100 mcg PO DAILY@0600 [facility] Last Admin: 08/08/21 06:09 Dose: 100 mcg Documented by: ALEXSANDRA Magnesium Oxide (Magnesium Oxide 400 Mg Tablet) 400 mg PO BID [facility] Last Admin: 08/08/21 09:41 Dose: 400 mg Documented by: DAVY Metoprolol Tartrate (Metoprolol Tartrate 12.5 Mg Halftab) 12.5 mg PO Q6H [facility]; Protocol Last Admin: 08/08/21 06:09 Dose: 12.5 mg Documented by: ALEXSANDRA Midodrine (Midodrine Hcl 2.5 Mg Tablet) 2.5 mg PO TIDWM [facility] Last Admin: 08/08/21 09:41 Dose: 2.5 mg Documented by: DAVY Omeprazole (Omeprazole 20 Mg Capsule.) 20 mg PO DAILY@0630 [facility] Last Admin: 08/08/21 06:09 Dose: 20 mg Documented by: ALEXSANDRA Pharmacy Consult (Consult Rx Perform Med Rec) 1 each MISCELLANE ONCE PRN PRN Reason: Consult order Sodium Chloride (0.9 % Sodium Chloride Flush 3 Ml Syringe) 3 ml IVFLUSH QSHIFT [facility] Last Admin: 08/08/21 09:41 Dose: 3 ml Documented by: DAVY Tamsulosin HCl (Tamsulosin Hcl 0.4 Mg Capsule) 0.4 mg PO BEDTIME [facility] Last Admin: 08/07/21 20:05 Dose: 0.4 mg Documented by: ALEXSANDRA Labs CBC & Chem 7: 08/06/21 05:26 08/07/21 11:07 Labs: Laboratory Results - last 24 hr 08/07/21 08/07/21 11:07 11:07 Anion Gap 12 Estim Creat Clear Calc 53.5 Estimated GFR 55 Random Glucose 130 H Calcium 9.0 B-Natriuretic Peptide 249 H Microbiology Microbiology Results: Microbiology 08/06/21 10:52 Gram Stain - Final Sputum - Expectorated Sputum Culture - Final Assessment and Plan (1) Atrial fibrillation with RVR: Status: Acute (2) Symptomatic bradycardia: Status: Acute (3) Acute exacerbation of congestive heart failure: Status: Acute Plan 76-year-old male with PMHx of atrial fibrillation (on Pradaxa and atenolol), HTN, HFpEF, CKD (baseline 1.4 - probably stage 3a CKD).? Also has a h/o urinary retention, seen prev by Dr. Castellanos.? 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 Fully functional.? Former smoker, but no h/o COPD or asthma presented to hospital with shortness of breath and was noted to have PNA, afib with RVR and later developped hypOtension and bradycardia and transffered to ICU ?1. Chronic atrial fibrillation. Was on Pradaxa and atenolol at home. ?2. now AFIB with RVR.? Could be the cause of his acute heart failure or 2? to it.? Had previously been rater controlled w atenolol 100 mg bid.? Now off the beta blockers and on only low dose diltiazem.? Seems very sensitive to the diltiazem.? Plan is to adjust cardizem for better control--presently cardizem 30qidt. .? Continuing the Lovenox 80 mg q12h until his rate is stable and we?re sure that he won?t need a PPM.? He may well need PPM. Once deem that he would not get pacemaker will change to Pradax ?3. Chronic HFpEF--may triggered by AFIB, compensated at this time. Continue present dose of Lasix ?5. Right heart failure.? It?s possible that his symptomatic COSTA is due in part or primarily to RHF (as opposed to LHF).? I think his small volume ascites is also most likely secondary to RHF. ?6. R/o pulmonary embolism:? One of the main questions in this patient is why he had severe COSTA, but at rest had Sats up to 98% on room air.? The former is not explained by his CT scan, and the latter is inconsistent with pneumonia.? Furthermore, neither the CXR nor the CT are c/w left heart failure with pulmon edema.? The remaining two possibilities include RHF and PE.? PE would be unusual in a patient who is anticoagulated.? And the patient had a negative duplex scan about a week ago (done bec of leg pain).? But the DDimer, albeit nonspecific, is worrisome, as was the rising troponin.? That?s why we did the perfusion studay.? On the other hand, the right heart on the echo yesterday was little different from his right heart on the echo from September of last year. ? Bottom line:? The lung perfusion scan showed intermediate probability of PE.? Discussed at length with Dr. Garay.? We?re anticoagulating the patient anyway, so there?s little to be gained by doing a CTPA, which would carry some risk, given his renal indices.? So we decided to hold off on CTPA.? His renal indices are much improved today, we could do the CTPA if it becomes necessary. ? 7. CKD, probably stage 3a. ?8. BONI.? His renal indices improved with diuresis, which is c/w RHF and fluid overload as his main problem.? Plan to continue with Lasix 20 mg daily. ?9. Mild bilat pulmon infiltrates on chest CT.? Clinically, the patient has been fully nontoxic, and had Sats up to 98% on room air, which is inconsistent with pneumonia.? I discussed the CT findings with Dr. Miranda.? In his opinion, the small, focal bilat wispy infiltrates were more suggestive of early pneumonia than CHF.? In view of that, we?ve written him for a 5-day course of ceftriaxone. ?10. Urinary retention.? D/w Dr. Branham.? He?ll need to go home with a Mayo catheter and then f/u with urology (either Dr. Branham or Dr. Castellanos) in 3-4 weeks for a voiding trial Need for inpatient: ongoing management with AfIB with RVR and needing medication adjsustment while on cardiac monitoring Quality Stroke Does the patient have a stroke diagnosis?: No VTE Prior VTE?: No VTE Risk Level:: Medical - moderate - high VTE Device Contraindication: Treatment Not Indicated VTE Drug Contraindication: N/A - Med Ordered
[2021-08-08] MEDS: bisacodyL 5 MG TABLET.DR PO (09:54)
--- NOTE | 2021-08-08 13:00 | P.PNCA_ITS ---
Subjective Subjective Date of Service: 08/08/21 <GUERO Cutler - Last Filed: 08/08/21 13:14> 08/08/21 <Miguel A Garay MD - Last Filed: 08/08/21 13:25> Principal diagnosis: Afib, bradycardia, PNA, diastolic HF <GUERO Cutler - Last Filed: 08/08/21 13:14> Interval history: Today he reports feeling good. He denies having shortness of breath at rest or when walking. Occassional nonproductive cough. No chest pains or heart palpitations. No leg edema. Has berg in place and he is frustrated about it. [place] [facility] physical therapy today and was able to walk in hallway. present. Seen at 1100. <GUERO Cutler - Last Filed: 08/08/21 13:14> Review of Systems Review of Systems as above <GUERO Cutler - Last Filed: 08/08/21 13:14> Yes all other systems are reviewed and are negative <GUERO Cutler - Last Filed: 08/08/21 13:14> Physical Exam Vital Signs: Last Vital Signs Temp 97.6 F 08/08/21 11:43 Pulse 75 08/08/21 11:43 Resp 20 08/08/21 11:43 BP 107/81 08/08/21 11:43 Pulse Ox 94 08/08/21 11:43 BMI result Body Mass Index 28.2 <GUERO Cutler - Last Filed: 08/08/21 13:14> Const General: cooperative, healthy appearing, no acute distress, alert and awake <GUERO Cutler - Last Filed: 08/08/21 13:14> Orientation/consciousness: patient oriented x3 <GUERO Cutler Last Filed: 08/08/21 13:14> Neck Neck: Yes normal visual inspection and Yes no JVD <GUERO Cutler - Last Filed: 08/08/21 13:14> Resp Effort & Inspection: normal respiratory effort, able to speak in complete sentences and not labored <GUERO Cutler - Last Filed: 08/08/21 13:14> Auscultation: clear to auscultation bilaterally, crackles (few faint sounds left base), no rhonchi and no wheezes <Nuria JansenSAVC - Last Filed: 08/08/21 13:14> Cardio Rate: tachycardic <Nuria JansenSAVC - Last Filed: 08/08/21 13:14> Rhythm: abnormal rhythm irregularly irregular <Nuria JansenSAVC - Last Filed: 08/08/21 13:14> Heart sounds: S1 normal heart sound present and S2 normal heart sound present <Nuria JansenLUANN-C - Last Filed: 08/08/21 13:14> GI Inspection: Yes normal to inspection <Nuria JansenSAVC - Last Filed: 08/08/21 13:14> Neuro General: patient oriented x3 <Nuria Ayala SAV JansenC - Last Filed: 08/08/21 13:14> Extrem General: Yes normal to inspection and No edema <Nuria JansenSAVC - Last Filed: 08/08/21 13:14> Objective Labs and Meds Result diagrams: : 08/06/21 05:26 08/07/21 11:07 <Nuria Ayala GUERO Jansen - Last Filed: 08/08/21 13:14> Lab results: Laboratory Results - last 24 hr 08/07/21 11:07 B-Natriuretic Peptide 249 H <Nuria Ayala SAV JansenC - Last Filed: 08/08/21 13:14> Progress Note: A&P Assessment and plan (1) Atrial fibrillation with RVR: Status: Acute <Nuria AlegriaGUERO stewart - Last Filed: 08/08/21 13:14> Assessment and Plan: Hx of chronic atrial fibrillation. Rates elevated this admission. Meds being titrated for heart rate control. Tele currently shows afib, rates 110-140. He denies any CP or palpitations. BP 107/75, 101/73 this am. On Midodrine for BP support. Will increase his Metoprolol tartrate to 25mg q 6 hr, from 12.5mg q 6 hr. Will continue current Diltiazem 30mg qid. He was on Pradaxa for anti coagulation. This was placed on hold and he has been recieving therapuetic dose of Lovenox q 12 hr for anticoagulation. Earlier this admit he did have bradycardia raising the question of possible PPM placement. At present he no longer has bradycardia, no pauses. Ongoing tele monitoring. We will follow. <GUERO Cutler - Last Filed: 08/08/21 13:14> Hx of chronic atrial fibrillation. Rates elevated this admission. Meds being titrated for heart rate control. Tele currently shows afib, rates 110-140. He denies any CP or palpitations. BP 107/75, 101/73 this am. On Midodrine for BP support. Will increase his Metoprolol tartrate to 25mg q 6 hr, from 12.5mg q 6 hr. Will continue current Diltiazem 30mg qid. He was on Pradaxa for anticoagulation. This was placed on hold and he has been recieving therapuetic dose of Lovenox q 12 hr for anticoagulation. Earlier this admit he did have bradycardia raising the question of possible PPM placement. At present he no longer has bradycardia, no pauses. Ongoing tele monitoring. We will follow. Patient seen and examined. Case discussed with Nuria Jansen. Patient's heart rate is better controlled since initiation of Klonopin and also metoprolol. Will continue to maximize metoprolol therapy. Continue Cardizem. Continue full oral anticoagulation with Lovenox. Once rate is better controlled will switch him to p.o. Pradaxa. At this point in time there is no indication for pacing as he has not had any significant bradycardia. Continue to ambulate and heart of bed to chair. <Miguel A Garay MD - Last Filed: 08/08/21 13:25> (2) (HFpEF) heart failure with preserved ejection fraction: Status: Acute <GUERO Cutler - Last Filed: 08/08/21 13:14> Assessment and Plan: Admit with sob. Was treated for bronchopneumonia and finding of decompensated HFpEF. Echo 08/04 showed normal EF, dilated RV with preserved contractility, biatrial enlargement. BNP 1180. He was initially diuresed with IV lasix and then transitioned to Lasix 40mg daily ( home dose 20mg daily). Breathing improved. Does not appear fluid overloaded on exam. BNP down to 249 this am. Still being treated for bronchopneumonia. <GUERO Cutler - Last Filed: 08/08/21 13:14> Admit with sob. Was treated for bronchopneumonia and finding of decompensated HFpEF. Echo 08/04 showed normal EF, dilated RV with preserved contractility, biatrial enlargement. BNP 1180. He was initially diuresed with IV lasix and then transitioned to Lasix 40mg daily ( home dose 20mg daily). Breathing improved. Does not appear fluid overloaded on exam. BNP down to 249 this am. Still being treated for bronchopneumonia. Heart failure appears much improved. Continue Lasix to 40 mg daily. Patient is worried about indwelling Berg catheter. Will request Urology to have a follow- up with the patient. Continue other medical therapy. Will follow with you <Miguel A Garay MD - Last Filed: 08/08/21 13:25> (3) Pneumonia: Status: Acute <GUERO Cutler - Last Filed: 08/08/21 13:14> Assessment and Plan: Followed by hospitalist <GUERO Cutler - Last Filed: 08/08/21 13:14> Time Spent With Patient Time: Total time spent is greater than 50% in coordination of care (as documented) at patient's floor/unit and/or counseling patient: 24 <GUERO Cutler - Last Filed: 08/08/21 13:14> Progress Note: Quality Stroke Does the patient have a stroke diagnosis?: No <GUERO Cutler - Last Filed: 08/08/21 13:14> Procedures Date of Service Date of Service: 08/08/21 <GUERO Cutler - Last Filed: 08/08/21 13:14>
[2021-08-08] MEDS: Metoprolol Tartrate 25 MG TABLET PO ×2 (17:08→23:43)
[2021-08-08] MEDS: cefTRIAXone sodium 1 GM in 0.9 % Sodium Chloride 50 ML IV (17:08)
--- NOTE | 2021-08-08 18:40 | PC.NURSE ---
Addendum entered by Vicky Camargo RN 08/09/21 04:12: Pt voided 200ml at 0200 Original Note: Received order to d/c berg catheter - catheter removed at 1830, small amount of blood noticed. Patient tolerated procedure well.
[2021-08-08] MEDS: Tamsulosin HCL 0.4 MG CAPSULE PO (19:47)
[2021-08-08] MEDS: Latanoprost 0.005 % Ophth Sol 2.5 ML DROPS 1 DROP EYE-BOTH (19:56)
[2021-08-09 04:00] VITALS: BP 106/73; PULSE 81; RESP 20; TEMP 36.8; O2SAT 95
[2021-08-09] MEDS: Levothyroxine Sodium 100 MCG TABLET PO (05:23)
[2021-08-09] MEDS: Metoprolol Tartrate 25 MG TABLET PO (05:23)
[2021-08-09] MEDS: Omeprazole 20 MG CAPSULE.DR PO (05:23)
[2021-08-09 05:25] VITALS: BP 97/70; PULSE 107
[2021-08-09 07:55] VITALS: BP 110/83; PULSE 74; RESP 18; TEMP 36; O2SAT 98
[2021-08-09] MEDS: Enoxaparin Sodium 80 MG/0.8 ML SYRINGE SUBCUT (09:19)
[2021-08-09] MEDS: guaiFENesin LA 600 MG TAB.ER.12H 1200 MG PO (09:20)
[2021-08-09] MEDS: Midodrine HCl 2.5 MG TABLET PO ×2 (09:20→12:27)
[2021-08-09] MEDS: dilTIAZem HCL 60 MG TABLET PO (09:20)
[2021-08-09] MEDS: Magnesium Oxide 400 MG TABLET PO (09:20)
[2021-08-09] MEDS: Furosemide 40 MG TABLET PO (09:20)
[2021-08-09] MEDS: 0.9 % Sodium Chloride Flush 3 ML SYRINGE IVFLUSH (09:21)
--- NOTE | 2021-08-09 10:07 | P.DS_ITS ---
DS: Providers Provider Date of Service: 08/09/21 Date of admission: 08/03/21 16:09 Primary care physician: Maykel Levin MD Consults: 08/03/21 20:38 Consult to Cardiology Routine Consulting Provider: Taye Duong Reason for consultation: Tachy gabi syndrome Has provider been notified: Yes 08/04/21 09:32 Consult to Thoracic Surgery Routine Consulting Provider: Nadia Marques Reason for consultation: - ICU pt -PPM insert Has provider been notified: Yes DS: Diagnosis Discharge Diagnosis (1) Atrial fibrillation with RVR: Status: Resolved (2) (HFpEF) heart failure with preserved ejection fraction: Status: Acute (3) Pneumonia: Status: Resolved DS: Summary Hospital Course Hospital Course: 76-year-old male with PMHx of atrial fibrillation (on Pradaxa and atenolol), HTN, HFpEF, CKD (baseline 1.4 - probably stage 3a CKD).? Also has a h/o urinary retention, seen prev by Dr. Castellanos.? 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 Fully functional.? Former smoker, but no h/o COPD or asthma presented to hospital with shortness of breath and was noted to thought to have PNA, afib with RVR and later developped hypOtension and bradycardia As I understand it, while still in the ED, after the diltiazem drip was turned up to 15 mg/hour, the patient became bradycardic in the 30s and dropped his pressure to 70 and transffered to ICU on August 03 (same day of admission to hospitalist service) because of bradycardia with hypotension, requiring a dopamine drip. Echo this past September showed mild left ventricular hypertrophy with normal LV cavity size and normal systolic function with EF 55-60%.? Right ventricular size was mildly increased, with normal function.? There was mild MR and mild TR.? The inferior vena cava was normal with greater than 50% inspiratory collapse.? RVSP estimate was 31 mm. While in the ICU: In consultation w Dr. Garay, he was on digoxin 0.125 mg daily, atenolol 50 mg qid, we dropped the esmolol to 75mg, put the diltiazem up to 15mg/hr, and started him on diltiazem 30 mg po qid.? Also put him on Klonopin 0.5 mg bid, which he said made him feel much better.? HR came down slowly into the 80?s and we tapered the esmolol to off.? Later was tappered of cardizem drip and ultimately started on oral cardizem at 15 mg and titrated up to now 60 mg twice daily LABORATORY DATA:? Below.? Notably, white count is up to 13, creatinine is down slightly to 1.5, BNP is down to 665.? DDimer was 585. ?Troponin is up to 274 (from 181 36 hrs ago). Lung perfusion scan:? ?Intermediate probability of pulmonary embolism.? Predominantly bilateral lower lobe and right middle lobe subsegmental perfusion defects are present and while these could be due to atelectasis or pneumonitis, pulmonary embolism cannot be ruled out. ?If not contraindicated, further evaluation with CT angiography of the chest is recommended.? hospital course by problems: 1. Chronic atrial fibrillation. Was on Pradaxa and atenolol at home. ?2. now AFIB with? RVR.? Could be the cause of his acute heart failure or 2? to it.? Had previously been rater controlled w atenolol 100 mg bid.? Now off atenolol and started metoprolol 25 q6 and will change to 50 bid at discharge, additionally on cardizem 60 bid. Will stop atenolol at discharge. He has been on Lovenox in the [place] [facility] incase we thought he might need pacemaker. He will resume Pradaxa upon discharge. ?3. Chronic HFpEF--may triggered by AFIB, compensated at this time. Continue present dose of Lasix at 40 mg increase from 20 at home ?5. Right heart failure.? It?s possible that his symptomatic COSTA is due in part or primarily to RHF (as opposed to LHF).? I think his small volume ascites is also most likely secondary to RHF. ?6. R/o pulmonary embolism:? One of the main questions in this patient is why he had severe COSTA, but at rest had Sats up to 98% on room air.? The former is not explained by his CT scan, and the latter is inconsistent with pneumonia.? Furthermore, neither the CXR nor the CT are c/w left heart failure with pulmon edema.? The remaining two possibilities include RHF and PE.? PE would be unusual in a patient who is anticoagulated.? And the patient had a negative duplex scan about a week ago (done bec of leg pain).? But the DDimer, albeit nonspecific, is worrisome, as was the rising troponin.? That?s why we did the perfusion studay.? On the other hand, the right heart on the echo yesterday was little different from his right heart on the echo from September of last year. ? Bottom line:? The lung perfusion scan showed intermediate probability of PE.? Discussed at length with Dr. Garay.? We?re anticoagulating the patient anyway, so there?s little to be gained by doing a CTPA, which would carry some risk, given his renal indices.? So we decided to hold off on CTPA.? His renal indices are much improved today, we could do the CTPA if it becomes necessary. ? 7. CKD, probably stage 3a. stable ?8. BONI.? His renal indices improved with diuresis, which is c/w RHF and fluid overload as his main problem.? Plan to continue with Lasix 40 mg daily. ?9. Mild bilat pulmon infiltrates on chest CT.? Clinically, the patient has been fully nontoxic, and had Sats up to 98% on room air, which is inconsistent with pneumonia.? I CT findings discussed with Dr. Miranda.? In his opinion, the small, focal bilat wispy infiltrates were more suggestive of early pneumonia than CHF.? In view of that, treated with 5 days of Ceftriaxone ?10. Urinary retention.? D/w Dr. Branham.? Dr. Branham had suggested going home with Berg but he requested berg out as he was having no difficulty before coming in therefore was taken out without any issues Time Spent with Patient Time attestation: Total time spent providing and/or coordinating discharge services: Discharge coordination time: Greater than 30 minutes Quality: Safe Use of Opioids Does Pt have an Active Cancer Diagnosis on the Problem List?: No Quality: Stroke Does the patient have a stroke diagnosis?: No Physical Exam Vital Signs: Vital Signs: Last Vital Signs Temp 96.8 F 08/09/21 07:55 Pulse 74 08/09/21 07:55 Resp 18 08/09/21 07:55 BP 110/83 08/09/21 07:55 Pulse Ox 98 08/09/21 07:55 BMI result Body Mass Index 28.2 Discharge Plan Discharge Anticipated Discharge Date/Time: 08/09/21 10:36 Patient Disposition: Home, Self-Care Discharge Diagnosis: Heart failure, AFIB with RVR Referrals: Maykel Levin MD [Primary Care Provider] - 1 Week Discharge Medications: New terazosin 5 mg capsule 5 mg PO BEDTIME 30 Days Qty: 30 1RF clonazepam 0.5 mg Tablet 0.5 mg PO TID PRN (Reason: Anxiety) Qty: 21 0RF levalbuterol tartrate [Xopenex HFA] 45 mcg/actuation HFA aerosol inhaler 2 inh inhalation Q6H PRN (Reason: shortness of breath or wheezing) Qty: 15 0RF tamsulosin 0.4 mg Capsule 0.4 mg PO BEDTIME Qty: 30 0RF Continued atorvastatin 10 mg tablet 10 mg PO DAILY levothyroxine 100 mcg tablet 100 mcg PO DAILY latanoprost 0.005 % drops 1 drp ophthalmic (eye) BEDTIME omeprazole 20 mg capsule,delayed release(DR/EC) 20 mg PO DAILY Pradaxa 150 mg capsule 150 mg PO BID Discontinued atenolol 100 mg tablet 100 mg PO BID Qty: 180 3RF albuterol sulfate 90 mcg/actuation HFA aerosol inhaler 1 puff inhalation Q4H PRN (Reason: Wheezing) furosemide 20 mg tablet 20 mg PO DAILY No Action Jardiance 10 mg tablet 10 mg PO DAILY Qty: 30 4RF diltiazem HCl 60 mg tablet 60 mg PO BID Qty: 60 3RF Protocol: Hold for SBP/HR < HOLD for SBP < : 90 HOLD for HR < : 60 metoprolol tartrate 50 mg tablet 50 mg PO BID 90 Days Qty: 180 0RF Protocol: Hold for SBP/HR < HOLD for SBP < : 90 HOLD for HR < : 60 furosemide 40 mg tablet 40 mg PO DAILY 90 Days Qty: 90 1RF Protocol: Hold for SBP< HOLD for SBP < : 90 Discharge Orders: Discharge Order (Routine); Ordered 08/09/21 Ordered By: Keaton Snell Activity on Discharge: As tolerated Stand Alone Forms: Patient Portal Discharge page Care Plan Goals: Full recovery from heart failure Health Concerns: Heart failure, AFIB with rapid beats Plan of Treatment: Take Lasix as recommended, Do not take Atenolol anymore Start taking Cardizem as directed Lasix dose has been increased to 40 mg daily Resume Pradaxa tonight around 9 Assessment: as above Discharge Date/Time: 08/09/21 14:44
[2021-08-09 11:39] VITALS: BP 120/87; PULSE 101; RESP 18; TEMP 36.3; O2SAT 95
--- NOTE | 2021-08-09 12:59 | PM.PNCARD ---
Subjective Subjective Date of Service: 08/09/21 Principal diagnosis: Afib, bradycardia, PNA, diastolic HF Interval history: His Mayo catheter were removed. He is feeling happier. Heart rate is well controlled. Blood pressure is adequate. Breathing is comfortable. He has been ambulating Review of Systems Constitutional: Reports no additional constitutional complaints Cardiovascular: Reports no additional cardiovascular complaints Respiratory: Reports no additional respiratory complaints Gastrointestinal: Reports no additional gastrointestinal complaints Genitourinary: Reports no additional male genitourinary complaints Musculoskeletal: Reports no additional musculoskeletal complaints Psychiatric: Reports anxiety Physical Exam Vital Signs: Last Vital Signs Temp 97.3 F 08/09/21 11:39 Pulse 101 H 08/09/21 11:39 Resp 18 08/09/21 11:39 BP 120/87 08/09/21 11:39 Pulse Ox 95 08/09/21 11:39 BMI result Body Mass Index 28.2 Const General: cooperative, comfortable, no acute distress, alert and awake Nutritional Appearance: overweight Orientation/consciousness: patient oriented x3 Neck Neck: Yes trachea midline and Yes no JVD Resp Effort & Inspection: normal respiratory effort Auscultation: clear to auscultation bilaterally and diminished lung sounds Cardio Jugular venous distension: no JVD Rhythm: abnormal rhythm irregularly irregular Heart sounds: S1 normal heart sound present, S2 normal heart sound present, no click, no gallops and no murmurs GI Auscultation: normal bowel sounds Skin General skin exam: no rashes or lesions noted Neuro General: patient oriented x3 and no focal motor deficits Extrem General: Yes no clubbing, cyanosis or edema Objective Labs and Meds Result diagrams: 08/06/21 05:26 08/07/21 11:07 Progress Note: A&P Assessment and plan (1) (HFpEF) heart failure with preserved ejection fraction: Status: Acute Assessment and Plan: Heart failure preserved ejection fraction, clinically euvolemic and well compensated. Has done very well with current diuretic dose and treatment of pneumonia uncontrolled slow heart rate. Continue p.o. Lasix 40 mg. Heart failure education to be provided. Advised daily weight monitoring and avoidance of salt loading. Additional diuretics to be taken when needed. He understands and agrees. Continue adequate rate control which is well optimized. Blood pressure is well optimized. Eventually may consider adding Jardiance 10 mg as well as Aldactone as outpatient. Will continue monitor renal function as outpatient. (2) Chronic atrial fibrillation: Status: Acute Assessment and Plan: Chronic atrial fibrillation with adequate rate control. Continue Cardizem 60 mg b.i.d. and metoprolol 50 mg b.i.d.. Could can switch to p.o. Pradaxa 150 mg b.i.d.. Will follow up with Holter monitor as outpatient. Follow up in the clinic in 4 weeks time. Patient can be discharged home today Time Spent With Patient Time: Total time spent is greater than 50% in coordination of care (as documented) at patient's floor/unit and/or counseling patient: Progress Note: Quality Stroke Does the patient have a stroke diagnosis?: No Procedures Date of Service Date of Service: 08/09/21
--- NOTE | 2021-08-09 13:18 | MHC.CM.PN ---
pt dcdhome no skilled servceis ordered by
== END 2021-08-09 14:44 | disposition home or self-care (01) | DRG 291 ==
LOC: HO.ED 14:26 → HO.EDOVER 16:13 → HO.ICU 20:16 → HO.IMC 08-06 13:51
PROVIDERS: Anesthesiology; Nurse Practitioner Family; Physician Assistant Medical; Registered Nurse Community Health; Absent Provider Internal Medicine Cardiovascular Disease; Admitting Provider Hospitalist; Emergency Provider Emergency Medicine; PCP Internal Medicine; Visit Provider Internal Medicine
DX: I13.0 Hypertensive heart and chronic kidney disease with heart failure and stage 1 through stage 4 chronic kidney disease, or unspecified chronic kidney disease (principal); I50.33 Acute on chronic diastolic (congestive) heart failure; J96.01 Acute respiratory failure with hypoxia; J18.0 Bronchopneumonia, unspecified organism; I26.99 Other pulmonary embolism without acute cor pulmonale; I48.20 Chronic atrial fibrillation, unspecified; N17.9 Acute kidney failure, unspecified; I49.5 Sick sinus syndrome; I95.9 Hypotension, unspecified; N18.31 Chronic kidney disease, stage 3a; R33.9 Retention of urine, unspecified; I50.810 Right heart failure, unspecified; I07.1 Rheumatic tricuspid insufficiency; Z20.822 Contact with and (suspected) exposure to COVID-19; Z87.891 Personal history of nicotine dependence; Z79.01 Long term (current) use of anticoagulants; Z79.890 Hormone replacement therapy; Z79.899 Other long term (current) drug therapy
CPT/HCPCS: 36415; 71045; 71046; 71250; 78580; 80048; 80053; 80076; 80162; 82248; 82803; 82947; 83605; 83735; 83880; 84100; 84145; 84443; 84484; 85025; 85027; 85379; 85610; 86140; 87040; 87070; 87205; 87502; 87635; 93005; 93308; 96365; 96366; 96367; 96375; 97162; 99285; A9540; C1758; J0456; J0461; J0610; J0696; J1160; J1265; J1610; J1650; J1940; J2405; J2930; J3475

== ENCOUNTER → 2021-08-15 11:23 | Outpatient (REF) | payer MEDICARE, SELFPAY ==
--- NOTE | 2021-08-15 11:27 | HM_ITS ---
* Total monitoring time 3 days. * Underlying rhythm is atrial fibrillation. Average rate 75/Min. Range 42 to 164/Min. About 2.5% the time, rate > 100/Min. * Twenty-one pauses. Longest 2.8 seconds at 03:28. Daytime pause of 2.7 seconds at 15:52. * Occasional PVCs; overall burden 0.5%. One episode of 3 beat run. * No patient events. * Overall, atrial fibrillation with generally good rate control and occasional rapid rates. MTDD
== END ==
LOC: HO.CARD 11:23
PROVIDERS: Visit Provider Internal Medicine Cardiovascular Disease
DX: I48.91 Unspecified atrial fibrillation (principal); I49.5 Sick sinus syndrome; I50.9 Heart failure, unspecified
CPT/HCPCS: 93242

== ENCOUNTER 2021-09-04 13:09 | Outpatient (REF) | payer MEDICARE, SELFPAY ==
[2021-09-04 14:41] LABS: Anion Gap 14 (12-20); Blood Urea Nitrogen 17 mg/dL (9-16); Calcium 9.2 mg/dL (8.4-10.2); Carbon Dioxide 24 mmol/L (22-29); Chloride 106 mmol/L (96-108); Estimated Glomerular Filt Rate 50; Glucose Random 98 mg/dL (60-115); Potassium 4.3 mmol/L (3.3-5.1); Sodium 140 mmol/L (135-145)
[2021-09-04 14:43] LABS: B Type Natriuretic Peptide 241 pg/mL (<100)
== END 2021-09-04 13:10 | disposition home or self-care (01) ==
LOC: HO.LAB 13:09
PROVIDERS: PCP Internal Medicine; Referring Provider Internal Medicine; Visit Provider Internal Medicine Cardiovascular Disease
DX: I50.30 Unspecified diastolic (congestive) heart failure (principal); I48.20 Chronic atrial fibrillation, unspecified; Z79.899 Other long term (current) drug therapy
CPT/HCPCS: 36415; 80048; 83880; 99212

== ENCOUNTER 2021-10-21 08:45 | Outpatient (REF) | payer MEDICARE, SELFPAY ==
--- NOTE | ~2021-10-21 | US_ITS ---
EXAMINATION: US ABDOMEN COMPLETE CLINICAL INFORMATION: Ascites. COMPARISON: US retroperitoneal complete (renal) 03/04/2017. TECHNIQUE: Real-time imaging of the abdominal viscera. FINDINGS: PANCREAS: Normal. ABDOMINAL AORTA: The proximal mid and the distal segments appear normal, however, suboptimally visualized. INFERIOR VENA CAVA: Obscured by overlying gas. LIVER: The liver is normal in size. The liver contour is normal. No focal hepatic lesion. There is no intrahepatic biliary duct dilatation seen. GALLBLADDER: Normal. The gallbladder is physiologically distended without evidence of stones, sludge, polyps, wall thickening or pericholecystic fluid. COMMON BILE DUCT: Normal in caliber measuring 0.2 cm in diameter. RIGHT KIDNEY: Normal. No hydronephrosis. No renal calculi or focal parenchymal lesions. The kidney measures 10.6 cm in maximum dimension. LEFT KIDNEY: Normal. No hydronephrosis. No renal calculi or focal parenchymal lesions. The kidney measures 10.7 cm in maximum dimension. SPLEEN: Normal. The spleen measures 8.8 cm in maximum dimension. FREE FLUID: None. US/US abdomen complete IMPRESSION: Unremarkable complete abdomen ultrasound. Abdominal aorta and IVC are partially obscured by overlying gas. There is no free fluid in the 4 quadrants of the abdomen.
== END 2021-10-21 08:46 | disposition home or self-care (01) ==
LOC: HO.US 08:45
PROVIDERS: Visit Provider Internal Medicine
DX: R18.8 Other ascites (principal)
CPT/HCPCS: 76700

== ENCOUNTER 2021-11-07 09:45 | Outpatient (REF) | payer MEDICARE, SELFPAY ==
[2021-11-07 11:23] LABS: Prostate Specific Antigen 3.98 ng/mL (<0.05-4.0)
== END 2021-11-07 09:46 | disposition home or self-care (01) ==
LOC: HO.WFDLDS 09:45
PROVIDERS: Visit Provider Urology
DX: Z12.5 Encounter for screening for malignant neoplasm of prostate (principal); R39.11 Hesitancy of micturition
CPT/HCPCS: 36415; 84153

== ENCOUNTER → 2021-12-09 13:48 | Outpatient (BNVA) | payer MEDICARE, SELFPAY | PROVIDERS: PCP Internal Medicine; Referring Provider Internal Medicine; Visit Provider Internal Medicine Cardiovascular Disease | DX: I50.30 Unspecified diastolic (congestive) heart failure (principal); I48.20 Chronic atrial fibrillation, unspecified | CPT/HCPCS: 99212 ==

== ENCOUNTER 2021-12-12 09:09 | Outpatient (REF) | payer MEDICARE, SELFPAY ==
[2021-12-12 11:39] LABS: Anion Gap 15 (12-20); Blood Urea Nitrogen 17 mg/dL (9-16); Calcium 9.5 mg/dL (8.4-10.2); Carbon Dioxide 27 mmol/L (22-29); Chloride 103 mmol/L (96-108); Estimated Glomerular Filt Rate 44; Glucose Random 108 mg/dL (60-115); Sodium 141 mmol/L (135-145)
[2021-12-12 11:44] LABS: B Type Natriuretic Peptide 129 pg/mL (<100)
== END 2021-12-12 09:10 | disposition home or self-care (01) ==
LOC: HO.WFDLDS 09:09
PROVIDERS: PCP Internal Medicine; Visit Provider Internal Medicine Cardiovascular Disease
DX: I50.30 Unspecified diastolic (congestive) heart failure (principal)
CPT/HCPCS: 36415; 80048; 83880

== ENCOUNTER 2022-01-05 09:15 | Outpatient (REF) | payer MEDICARE, SELFPAY ==
[2022-01-05 11:54] LABS: Anion Gap 14 (12-20); Blood Urea Nitrogen 17 mg/dL (9-16); Calcium 9.5 mg/dL (8.4-10.2); Carbon Dioxide 23 mmol/L (22-29); Chloride 108 mmol/L (96-108); Estimated Glomerular Filt Rate 56; Glucose Random 111 mg/dL (60-115); Potassium 4.1 mmol/L (3.3-5.1); Sodium 141 mmol/L (135-145)
[2022-01-07 11:36] LABS: NT-proBNP 848 pg/mL
== END 2022-01-05 09:16 | disposition home or self-care (01) ==
LOC: HO.WFDLDS 09:15
PROVIDERS: Visit Provider Internal Medicine Cardiovascular Disease
DX: I48.20 Chronic atrial fibrillation, unspecified (principal); I50.30 Unspecified diastolic (congestive) heart failure
CPT/HCPCS: 36415; 80048; 83880

== ENCOUNTER 2022-01-08 15:23 | Outpatient (REF) | payer MEDICARE, SELFPAY ==
[2022-01-08 17:48] LABS: Anion Gap 17 (12-20); Blood Urea Nitrogen 19 mg/dL (9-16); Calcium 9.4 mg/dL (8.4-10.2); Carbon Dioxide 25 mmol/L (22-29); Chloride 102 mmol/L (96-108); Estimated Glomerular Filt Rate 50; Glucose Random 84 mg/dL (60-115); Potassium 4.4 mmol/L (3.3-5.1); Sodium 140 mmol/L (135-145)
[2022-01-08 17:57] LABS: B Type Natriuretic Peptide 195 pg/mL (<100)
== END 2022-01-08 15:24 | disposition home or self-care (01) ==
LOC: HO.LAB 15:23
PROVIDERS: PCP Internal Medicine; Visit Provider Internal Medicine Cardiovascular Disease
DX: I48.91 Unspecified atrial fibrillation (principal); I49.5 Sick sinus syndrome; I50.9 Heart failure, unspecified
CPT/HCPCS: 36415; 80048; 83880

== ENCOUNTER 2022-01-22 11:32 | Outpatient (REF) | payer MEDICARE, SELFPAY ==
[2022-01-22 11:38] LABS: MANUAL DIFF FLAG NO
[2022-01-22 12:12] LABS: Basophils Percent Auto 0.7 % (0-2); Eosinophils Absolute Auto 0.3 X10*3/uL (0.0-0.4); Eosinophils Percent Auto 5.4 % (0-4); Hematocrit 48.7 % (42.0-52.0); Hemoglobin 16.1 g/dl (14.0-18.0); Imm Gran Abs Auto 0.01 X10*3/uL (0.00-0.03); Imm Gran Pct Auto 0.2 % (0.0-0.4); Lymphocytes Absolute Auto 1.4 X10*3/uL (1.2-4.9); Lymphocytes Percent Auto 24.6 % (20-40); Mean Corpuscular HGB Conc 33.1 g/dl (31.0-36.0); Mean Corpuscular Hemoglobin 31.2 pg (27.0-33.0); Mean Corpuscular Volume 94.4 fL (80.0-98.0); Monocytes Absolute Auto 0.8 X10*3/uL (0.1-1.2); Monocytes Percent Auto 13.8 % (2-11); Neutrophils Absolute Auto 3.2 x10*3/uL (2.0-8.3); Neutrophils Percent Auto 55.3 % (45-73); Platelet Count 171 X10*3/uL (160-400); Red Blood Count 5.16 X10*6/uL (4.60-5.80); Red Cell Distribution Width 13.6 % (11.0-16.0); White Blood Count 5.7 X10*3/uL (4.8-10.8)
[2022-01-22 12:17] LABS: Appearance Urine Cloudy; Color Urine Yellow; Glucose Urine UA >=1000 mg/dL (Negative); Leukocyte Esterase Urine Small (1+) (Negative); Nitrite Urine Negative (Negative); Specific Gravity - Urine 1.015 (1.005-1.025); UMIC TRIGGER UA YES; Urine Blood Negative (Negative); Urine Ketones Negative (Negative); Urine Protein Negative (Neg-Trace)
[2022-01-22 12:21] LABS: Bacteria Urine 4+ (None Seen); Hyaline Casts Urine 0-2 /LPF (0-2); RBC Urine 0-2 /HPF (0-2); Squamous Epithelial Cell Urine 0-2 /HPF (0-2)
[2022-01-22 13:25] LABS: Alanine Aminotransferase 16 U/L (0-40); Albumin Level 4.2 g/dL (3.5-5.0); Alkaline Phosphatase 74 U/L (39-117); Anion Gap 17 (12-20); Aspartate Amino Transferase 20 U/L (5-37); Bilirubin Total 1.1 mg/dL (0.0-1.0); Blood Urea Nitrogen 18 mg/dL (9-16); Calcium 9.6 mg/dL (8.4-10.2); Carbon Dioxide 22 mmol/L (22-29); Chloride 105 mmol/L (96-108); Cholesterol 166 mg/dL; Estimated Glomerular Filt Rate 48; Glucose Fasting 96 mg/dL (60-99); HDL Cholesterol 53 mg/dL; LDL Cholesterol Calculated 99 mg/dl; Sodium 140 mmol/L (135-145); Total Protein 6.7 g/dL (6.5-8.0); Triglycerides 74 mg/dL
[2022-01-22 13:38] LABS: TSH reflex Free T4 1.09 uIU/mL (0.32-4.0)
[2022-01-23 09:32] LABS: Free Prostate Spec Ag 1.4 ng/mL; Percent Free Prostate Spec Ag 14 % (calc) (>25); Prostate Specific Ag Total 9.7 ng/mL (< OR = 4.0)
== END 2022-01-22 11:33 | disposition home or self-care (01) ==
LOC: HO.LNP 11:32
PROVIDERS: Visit Provider Internal Medicine
DX: Z00.00 Encounter for general adult medical examination without abnormal findings (principal); E03.9 Hypothyroidism, unspecified; E83.52 Hypercalcemia; D72.821 Monocytosis (symptomatic); E78.00 Pure hypercholesterolemia, unspecified; I11.0 Hypertensive heart disease with heart failure; I50.31 Acute diastolic (congestive) heart failure; Z12.5 Encounter for screening for malignant neoplasm of prostate
CPT/HCPCS: 80053; 80061; 81001; 84153; 84154; 84443; 85025

== ENCOUNTER 2022-01-29 10:24 | Outpatient (REF) | payer MEDICARE, SELFPAY ==
[2022-01-29 11:37] LABS: PSA,Total (Free>4and<10) 8.48 ng/mL (0.00-4.00)
[2022-02-02 10:53] LABS: Free Prostate Spec Ag 1.5 ng/mL; Percent Free Prostate Spec Ag 17 % (calc) (>25); Prostate Specific Ag Total 8.9 ng/mL (< OR = 4.0)
== END 2022-01-29 10:25 | disposition home or self-care (01) ==
LOC: HO.LNP 10:24
PROVIDERS: Visit Provider Internal Medicine
DX: Z12.5 Encounter for screening for malignant neoplasm of prostate (principal); R97.20 Elevated prostate specific antigen [PSA]
CPT/HCPCS: 84153; 84154

== ENCOUNTER → 2022-04-07 12:17 | Outpatient (BNVA) | payer MEDICARE, SELFPAY | PROVIDERS: PCP Internal Medicine; Referring Provider Internal Medicine; Visit Provider Internal Medicine Cardiovascular Disease | DX: I50.30 Unspecified diastolic (congestive) heart failure (principal); I48.20 Chronic atrial fibrillation, unspecified; I07.1 Rheumatic tricuspid insufficiency; Z79.02 Long term (current) use of antithrombotics/antiplatelets; Z79.899 Other long term (current) drug therapy | CPT/HCPCS: 99212 ==

== ENCOUNTER 2022-07-29 09:27 | Outpatient (REF) | payer MEDICARE, SELFPAY ==
[2022-07-29 11:54] LABS: Alanine Aminotransferase 18 U/L (0-40); Albumin Level 4.5 g/dL (3.5-5.0); Alkaline Phosphatase 79 U/L (39-117); Aspartate Amino Transferase 20 U/L (5-37); Bilirubin Direct 0.4 mg/dL (0.0-0.5); Bilirubin Total 1.7 mg/dL (0.0-1.0); Cholesterol 176 mg/dL; HDL Cholesterol 54 mg/dL; LDL Cholesterol Calculated 107 mg/dl; Total Protein 6.7 g/dL (6.5-8.0); Triglycerides 79 mg/dL
== END 2022-07-29 09:28 | disposition home or self-care (01) ==
LOC: HO.WFDLDS 09:27
PROVIDERS: Visit Provider Internal Medicine
DX: E78.00 Pure hypercholesterolemia, unspecified (principal)
CPT/HCPCS: 36415; 80061; 80076

== ENCOUNTER 2022-09-23 12:11 | Outpatient (REF) | payer MEDICARE, SELFPAY | END 2022-09-23 12:12 | disposition home or self-care (01) | LOC: HO.LAB 12:11 | PROVIDERS: Visit Provider Family Medicine | DX: Z13.89 Encounter for screening for other disorder (principal) ==

== ENCOUNTER → 2022-10-21 12:37 | Outpatient (REF) | payer MEDICARE, SELFPAY ==
--- NOTE | 2022-10-21 12:43 | CA_ITS ---
Transthoracic Echocardiogram Patient (Last, First, Middle): Madan Oliveira, Gender: Male Date of : 1945 Age: 77 Procedure Date: 10/21/2022 Procedure Type: Transthoracic Echocardiogram Location: OP Height: 175.26 cm Weight: 81.65 kg BSA: 1.98 m2 Heart Rate: 90 bpm BP: 105 / 80 mmHg Stocking Inspector: MARCUS Referring MD: Miguel A Garay MD Family Program Specialist: Miguel A Garay MD Symptoms: I50.30 - Unspecified diastolic (congestive) heart failure Study Quality: Fair ECG Rhythm: Atrial Fibrillation Conclusions: - 1. Normal LV ejection fraction 55-60% 2. Dilated right-sided chambers with significantly dilated right atrium 3. Mild mitral regurgitation 4. Normal RV systolic pressure 5. Mildly dilated ascending aorta at 3.7 cm 6. No gross pericardial effusion Findings Left Ventricle Normal left ventricular size, thickness, and systolic function. The visually estimated ejection fraction is between 55-60%. Diastolic function is indeterminate on the basis of available data. Right Ventricle Mildly increased right ventricular cavity size. There is normal right ventricular systolic function. Atria The left atrium is mildly dilated. Interatrial shunt cannot be excluded. The right atrium is severely dilated. Aortic Valve There is mild calcification of the aortic valve. There is mild thickening of the aortic valve. There is no aortic valve stenosis. There is no aortic valve regurgitation. Mitral Valve There is mild anterior and posterior mitral leaflet thickening. There is mild mitral valve regurgitation. There is no mitral valve stenosis. Pulmonic Valve The pulmonic valve is likely normal. There is trace to mild pulmonic valve regurgitation. Tricuspid Valve There is mild tricuspid valve regurgitation. The right ventricular systolic pressure is normal. The right ventricular systolic pressure is 20 mmHg. Normal right atrial pressure. Great Vessels The pulmonary artery was not well visualized. There is mild dilatation of the ascending aorta measuring 3.70 cm. Venous The inferior vena cava is normal in size and collapses greater than 50% with inspiration. Pericardium/Pleural There is no evidence of pericardial effusion. Prior Study Comparison No significant change compared to prior study dated: 08/04/2021. Measurements 2D Linear Measurements IVSd: 1.20 0.6-0.9/0.6-1.0 cm LVIDd: 4.10 3.9-5.3/4.2-5.9 cm LVIDd Index: 2.07 2.4-3.2/2.2-3.1 cm/m2 LVIDs: 2.80 2.0-3.6 cm LVPWd: 0.90 0.7-1.1 cm LA Diam: 4.10 2.7-3.8/3.0-4.0 cm LAIDs Index: 2.07 1.5-2.3 cm/m2 LV Mass: 176.18 67-162/88-224 g LV Mass Index: 88.98 43-95/49-115 g/m2 LVOT Diam: 1.90 3.0+(-)1.3 cm 2D Systolic Function EF 4C: 53.60 >55% EF 2C: 60.50 >55% EF BiP: 57.70 >55% Mitral Valve MV Pk E: 0.71 MV Decel Time: 194.00 E'Lateral: 11.00 E'Medial: 6.39 E/E' Med: 11.20 E/E' Lat: 6.50 PHT: 57.00 MVA PHT: 3.86 Decel Morrow: 3.78 Aortic Valve AoV Pk David: 0.81 AoV Mn David: 0.61 AoV VTI: 0.15 AoV Pk Grad: 3.00 Aov Mn Grad: 2.00 ANA Cont.VTI: 1.92 LVOT LVOT Pk David: 0.57 LVOT Mn David: 0.42 LVOT VTI: 0.10 LVOT Pk Grad: 1.00 LVOT Mn Grad: 1.00 LVOT Diam: 1.90 LVOT Area: 2.84 Diastolic Function MV Pk E: 0.71 E'Medial: 6.39 E/E' Med: 11.20 E' Laterial: 11.00 E/E' Lat: 6.50 Right Ventricle TAPSE (mm): 18.50 TVS' David: 9.86 Tricuspid Valve TR Pk David: 2.08 TR Pk Grad: 17.00 RA Press: 3.00 RVSP: 20.00 Great Vessels Aorta Sinus of Valsalva: 3.50 2.0-3.5 cm Ao Asc: 3.70 2.1-3.4 cm Pulmonary Valve PV Pk David: 0.87 Peak PV Grad: 3.00 Updated in Other Vendor System with Status of Final Miguel A Garay MD electronically signed on 10/22/2022 12:40:12 PM with status of Final
== END ==
LOC: HO.CARD 12:37
PROVIDERS: PCP Internal Medicine; Visit Provider Internal Medicine Cardiovascular Disease
DX: I50.30 Unspecified diastolic (congestive) heart failure (principal)
CPT/HCPCS: 93306

== ENCOUNTER → 2022-10-21 12:43 | Outpatient (BNV) | payer MEDICARE, SELFPAY | PROVIDERS: PCP Internal Medicine; Visit Provider Internal Medicine Cardiovascular Disease | DX: I50.30 Unspecified diastolic (congestive) heart failure (principal); I34.0 Nonrheumatic mitral (valve) insufficiency | CPT/HCPCS: 93306 ==

== ENCOUNTER 2022-10-29 15:19 | Outpatient (AMB) | payer MEDICARE, SELFPAY ==
[2022-10-29 15:43] VITALS: BP 120/80; PULSE 92; BMI 26.0
--- NOTE | 2022-10-29 15:43 | A.OFFVIS_ITS ---
Intake Vital Signs 10/29/22 15:43 Height 5 ft 9 in Weight 176 lb 5.917 oz BMI 26.0 BP 120/80 Blood Pressure Location Lt brachial Position Sitting Pulse 92 Intake Visit Reasons: 6 mth f/up Intake Note: 6 month follow-up with ekg Family Nurse Practitioner Required: No Allergies No Known Allergies Allergy (Verified 09/23/22 11:36) Medication List - Last Reconciled 10/29/22 by Miguel A Garay MD atorvastatin 10 mg PO DAILY clonazepam 0.5 mg PO TID PRN dabigatran etexilate (Pradaxa) 150 mg PO BID diltiazem HCl 60 mg See Protocol PO BID empagliflozin (Jardiance) 10 mg PO DAILY furosemide 40 mg See Protocol PO DAILY latanoprost 0.005% 1 drp ophthalmic (eye) BEDTIME levalbuterol tartrate 45 mcg/actuation (Xopenex HFA) 2 inhalations inhalation Q6H PRN levothyroxine 100 mcg PO DAILY metoprolol tartrate 50 mg PO BID nitrofurantoin monohyd/m-cryst 100 mg (Macrobid) 100 mg PO Q12H 10 days omeprazole 20 mg PO DAILY tamsulosin 0.4 mg PO BEDTIME HPI HPI Comments History of Present Illness Details Dirk comes for follow-up. No worsening cardiac symptoms. Denies symptoms of palpitations. Back to exercise level. His fluid status remain great. He has not had any hospitalization related to heart failure. No worsening shortness of breath. Walks on a regular basis. Takes all his medications. No bleeding issues or neurologic events. No recent blood work. [facility] Medical History (HFpEF) heart failure with preserved ejection fraction Biatrial enlargement Chronic atrial fibrillation Chronic kidney disease Elevated troponin HTN (hypertension) Tricuspid regurgitation Surgical History History of appendectomy History of esophageal dilatation Hx of cataract surgery Hx of inguinal hernia repair Family History Father No problems noted. Mother HTN (hypertension) Social History Household Members: Spouse Housing: House Alcohol intake: current Alcohol intake frequency: does not drink Alcohol type: wine Patient Tobacco Use Status: Former Tobacco user Quit Date: 1967 Years Smoked: 10 +/- Current occupational status: retired Review of Systems Const Denies chills, Denies fatigue, Denies fever(s), Denies frequent falls, Denies weakness, Denies weight gain and Denies weight loss ENT Denies dizziness Card Denies chest pain, Denies leg edema, Denies lightheadedness, Denies palpitations, Denies dyspnea, Denies dyspnea on exertion, Denies orthopnea and Denies other (loss of consciousness) Resp Denies cough, Denies dyspnea and Denies dyspnea on exertion GI Denies hematochezia and Denies change in stool character Musc Denies abnormal gait, Denies muscle weakness, Denies numbness, Denies radiating pain into limb and Denies tingling Neuro Denies abnormal gait, Denies dizziness, Denies frequent falls, Denies numbness, Denies tingling and Denies weakness Endo Denies fatigue and Denies palpitations Physical Exam Vital Signs: Last Vital Signs Pulse 92 10/29/22 15:43 BP 120/80 10/29/22 15:43 BMI result Body Mass Index 26.0 Last Vital Signs Temp 97.3 F 08/09/21 11:39 Pulse 101 H 08/09/21 11:39 Resp 18 08/09/21 11:39 BP 120/87 08/09/21 11:39 Pulse Ox 95 08/09/21 11:39 BMI result Body Mass Index 28.2 Const General: cooperative, comfortable, no acute distress, alert, awake, Physically active and well groomed Nutritional Appearance: overweight Orientation/consciousness: patient oriented x3 Neck Neck: Yes trachea midline and Yes no JVD Resp Effort & Inspection: normal respiratory effort Auscultation: clear to auscultation bilaterally and diminished lung sounds Cardio Jugular venous distension: no JVD Rhythm: abnormal rhythm irregularly irregular Heart sounds: S1 normal heart sound present, S2 normal heart sound present, no click, no gallops and no murmurs GI Auscultation: normal bowel sounds Skin General skin exam: no rashes or lesions noted Neuro General: patient oriented x3 and no focal motor deficits Extrem General: Yes no clubbing, cyanosis or edema Office Procedures EKG Details: EKG shows atrial fibrillation with nonspecific ST T wave changes [id number], Complete Assessment & Plan Assessment & Plan (1) (HFpEF) heart failure with preserved ejection fraction: Code(s): I50.30 - Unspecified diastolic (congestive) heart failure Plan: Heart failure preserved ejection fraction with improved fluid status and functionality since starting Jardiance. Can reduce Lasix to 20 mg on a daily basis. Daily weight monitoring avoidance of salt loading was discussed. Additional diuretics as need be. Requires quarterly renal function test. Will check BMP and BNP. Follow up in the clinic in 1 year's time. (2) Chronic atrial fibrillation: Code(s): I48.20 - Chronic atrial fibrillation, unspecified Plan: Chronic rate control atrial fibrillation. Currently rate control with Cardizem therapy. Continue the same. Has failed rhythm control approach in the past. Continue full oral anticoagulation, currently on Pradaxa 150 mg b.i.d.. Given his elevated creatinine should pursue renal function every 3 months. Have put in the request for the same. Management was discussed in details. Follow up in the clinic 1 year's time, sooner p.r.n.. Thank you for allowing me to partake in his care Orders: Orders Basic Metabolic Panel 1 Week I50.30 - Unspecified diastolic (congestive) heart failure B Type Natriuretic Peptide 1 Week I50.30 - Unspecified diastolic (congestive) heart failure Basic Metabolic Panel 3 Months I50.30 - Unspecified diastolic (congestive) heart failure Basic Metabolic Panel 6 Months I50.30 - Unspecified diastolic (congestive) heart failure Basic Metabolic Panel 9 Months I50.30 - Unspecified diastolic (congestive) heart failure Medications: Changed From furosemide 20 mg (1 tablet) alternating with 40mg (2 tablets) every other day. 40 mg See Protocol PO DAILY 90 days 180 tabs 2RF To furosemide 20 mg (1 tablet) alternating with 40mg (2 tablets) Mon and Wed. 40 mg See Protocol PO DAILY Coding Level of Care Code Est Pt Level 4 (05895) Diagnoses (HFpEF) heart failure with preserved ejection fraction I50.30 Chronic atrial fibrillation I48.20 CPT Codes EKG - CPT: 35458-[id number], Complete ([id number])
== END 2022-10-29 16:13 | disposition home or self-care (01) ==
PROVIDERS: PCP Internal Medicine; Referring Provider Internal Medicine; Visit Provider Internal Medicine Cardiovascular Disease
DX: I50.30 Unspecified diastolic (congestive) heart failure (principal); I48.20 Chronic atrial fibrillation, unspecified
CPT/HCPCS: 93010; 99214

== ENCOUNTER → 2022-10-29 15:19 | Outpatient (BNVA) | payer MEDICARE, SELFPAY | PROVIDERS: PCP Internal Medicine; Referring Provider Internal Medicine; Visit Provider Internal Medicine Cardiovascular Disease | DX: I50.30 Unspecified diastolic (congestive) heart failure (principal); I48.20 Chronic atrial fibrillation, unspecified | CPT/HCPCS: 93005; 99212 ==

== ENCOUNTER 2022-11-03 11:18 | Outpatient (REF) | payer MEDICARE, SELFPAY ==
[2022-11-03 14:49] LABS: Anion Gap 11 (12-20); Blood Urea Nitrogen 18 mg/dL (9-16); Carbon Dioxide 25 mmol/L (22-29); Chloride 106 mmol/L (96-108); Estimated Glomerular Filt Rate 50; Glucose Random 90 mg/dL (60-115); Potassium 3.9 mmol/L (3.3-5.1); Sodium 138 mmol/L (135-145)
[2022-11-03 15:12] LABS: B Type Natriuretic Peptide 117 pg/mL (<100)
== END 2022-11-03 11:19 | disposition home or self-care (01) ==
LOC: HO.WFDLDS 11:18
PROVIDERS: Visit Provider Internal Medicine Cardiovascular Disease
DX: I50.30 Unspecified diastolic (congestive) heart failure (principal)
CPT/HCPCS: 36415; 80048; 83880

== ENCOUNTER 2023-01-27 08:39 | Outpatient (REF) | payer MEDICARE, SELFPAY ==
[2023-01-27 11:34] LABS: MANUAL DIFF FLAG NO
[2023-01-27 11:40] LABS: Appearance Urine Cloudy; Color Urine Yellow; Glucose Urine UA >=1000 mg/dL (Negative); Leukocyte Esterase Urine Moderate (2+) (Negative); Nitrite Urine Negative (Negative); UMIC TRIGGER UACC YES; Urine Blood Trace (Negative); Urine Ketones Negative (Negative); Urine Protein Trace mg/dL (Neg-Trace)
[2023-01-27 11:43] LABS: Bacteria Urine Trace (None Seen); Hyaline Casts Urine 0-2 /LPF (0-2); Squamous Epithelial Cell Urine 0-2 /HPF (0-2); UACC Culture Trigger YES; WBC Urine >50 /HPF (0-5)
[2023-01-27 11:47] LABS: Basophils Percent Auto 0.6 % (0-2); Eosinophils Absolute Auto 0.3 X10*3/uL (0.0-0.4); Eosinophils Percent Auto 4.9 % (0-4); Hematocrit 49.1 % (42.0-52.0); Hemoglobin 16.5 g/dl (14.0-18.0); Imm Gran Abs Auto 0.01 X10*3/uL (0.00-0.03); Imm Gran Pct Auto 0.2 % (0.0-0.4); Lymphocytes Absolute Auto 1.3 X10*3/uL (1.2-4.9); Lymphocytes Percent Auto 24.7 % (20-40); Mean Corpuscular HGB Conc 33.6 g/dl (31.0-36.0); Mean Corpuscular Hemoglobin 32.3 pg (27.0-33.0); Mean Corpuscular Volume 96.1 fL (80.0-98.0); Mean Platelet Volume 10.9 fL (9.4-12.4); Monocytes Absolute Auto 0.8 X10*3/uL (0.1-1.2); Monocytes Percent Auto 15.2 % (2-11); Neutrophils Absolute Auto 2.9 x10*3/uL (2.0-8.3); Neutrophils Percent Auto 54.4 % (45-73); Platelet Count 156 X10*3/uL (160-400); Red Blood Count 5.11 X10*6/uL (4.60-5.80); Red Cell Distribution Width 13.5 % (11.0-16.0); White Blood Count 5.3 X10*3/uL (4.8-10.8)
[2023-01-27 12:04] LABS: Anion Gap 13 (12-20); Blood Urea Nitrogen 18 mg/dL (9-16); Calcium 9.5 mg/dL (8.4-10.2); Carbon Dioxide 21 mmol/L (22-29); Chloride 108 mmol/L (96-108); Estimated Glomerular Filt Rate 58; Glucose Random 99 mg/dL (60-115); Potassium 3.9 mmol/L (3.3-5.1); Sodium 138 mmol/L (135-145)
[2023-01-27 12:17] LABS: PSA,Total (Free>4and<10) 7.54 ng/mL (0.00-4.00)
[2023-01-27 12:18] LABS: Alanine Aminotransferase 16 U/L (0-40); Albumin Level 4.1 g/dL (3.5-5.0); Alkaline Phosphatase 78 U/L (39-117); Anion Gap 13 (12-20); Aspartate Amino Transferase 18 U/L (5-37); Blood Urea Nitrogen 19 mg/dL (9-16); Calcium 9.6 mg/dL (8.4-10.2); Carbon Dioxide 21 mmol/L (22-29); Chloride 108 mmol/L (96-108); Cholesterol 171 mg/dL (<200); Estimated Glomerular Filt Rate 56; Glucose Fasting 100 mg/dL (60-99); HDL Cholesterol 55 mg/dL (>40); LDL Cholesterol Calculated 104 mg/dL (<100); Potassium 4.3 mmol/L (3.3-5.1); Sodium 138 mmol/L (135-145); Total Protein 7.1 g/dL (6.5-8.0); Triglycerides 64 mg/dL (<150)
[2023-01-27 12:20] LABS: Free T4 (Free Thyroxine) 1.25 ng/dL (0.71-1.85); Thyroid Stimulating Hormone 1.14 uIU/mL (0.32-4.0)
[2023-01-28 10:39] LABS: Free Prostate Spec Ag 1.3 ng/mL; Percent Free Prostate Spec Ag 18 % (calc) (>25); Prostate Specific Ag Total 7.3 ng/mL (< OR = 4.0)
== END 2023-01-27 08:40 | disposition home or self-care (01) ==
LOC: HO.WFDLDS 08:39
PROVIDERS: Internal Medicine Cardiovascular Disease; Visit Provider Internal Medicine
DX: I11.0 Hypertensive heart disease with heart failure (principal); I50.31 Acute diastolic (congestive) heart failure; E03.9 Hypothyroidism, unspecified; E83.52 Hypercalcemia; R82.90 Unspecified abnormal findings in urine; Z12.5 Encounter for screening for malignant neoplasm of prostate
CPT/HCPCS: 36415; 80048; 80053; 80061; 81001; 84153; 84154; 84439; 84443; 85025; 87086

== ENCOUNTER 2023-02-22 11:45 | Outpatient (REF) | payer MEDICARE, SELFPAY ==
[2023-02-22 12:07] LABS: Appearance Urine Clear; Color Urine Yellow; Glucose Urine UA >=1000 mg/dL (Negative); Leukocyte Esterase Urine Negative (Negative); Nitrite Urine Negative (Negative); UMIC TRIGGER UACC YES; Urine Blood Negative (Negative); Urine Ketones Negative (Negative); Urine Protein Negative (Neg-Trace)
[2023-02-22 12:12] LABS: Bacteria Urine None Seen (None Seen); Hyaline Casts Urine 0-2 /LPF (0-2); RBC Urine 0-2 /HPF (0-2); Squamous Epithelial Cell Urine 0-2 /HPF (0-2); WBC Urine 0-5 /HPF (0-5)
== END 2023-02-22 11:46 | disposition home or self-care (01) ==
LOC: HO.LNP 11:45
PROVIDERS: Visit Provider Internal Medicine
DX: R31.29 Other microscopic hematuria (principal)
CPT/HCPCS: 81001; 81003

== ENCOUNTER 2023-04-20 09:02 | Outpatient (REF) | payer MEDICARE, SELFPAY ==
[2023-04-20 13:08] LABS: Anion Gap 12 (12-20); Blood Urea Nitrogen 18 mg/dL (9-16); Calcium 9.5 mg/dL (8.4-10.2); Carbon Dioxide 26 mmol/L (22-29); Chloride 105 mmol/L (96-108); Estimated Glomerular Filt Rate 55; Glucose Random 100 mg/dL (60-115); Potassium 4.1 mmol/L (3.3-5.1); Sodium 139 mmol/L (135-145)
== END 2023-04-20 09:03 | disposition home or self-care (01) ==
LOC: HO.WFDLDS 09:02
PROVIDERS: Visit Provider Internal Medicine Cardiovascular Disease
DX: I11.0 Hypertensive heart disease with heart failure (principal); I50.30 Unspecified diastolic (congestive) heart failure
CPT/HCPCS: 36415; 80048

== ENCOUNTER 2023-08-03 09:01 | Outpatient (REF) | payer MEDICARE, SELFPAY ==
[2023-08-03 12:46] LABS: Alanine Aminotransferase 16 U/L (0-40); Albumin Level 4.2 g/dL (3.5-5.0); Alkaline Phosphatase 86 U/L (39-117); Aspartate Amino Transferase 15 U/L (5-37); Bilirubin Direct 0.5 mg/dL (0.0-0.5); Bilirubin Total 1.4 mg/dL (0.0-1.0); Cholesterol 165 mg/dL (<200); HDL Cholesterol 56 mg/dL (>40); LDL Cholesterol Calculated 94 mg/dL (<100); Total Protein 7.3 g/dL (6.5-8.0); Triglycerides 79 mg/dL (<150)
[2023-08-03 12:47] LABS: Anion Gap 15 (12-20); Blood Urea Nitrogen 18 mg/dL (9-16); Carbon Dioxide 24 mmol/L (22-29); Chloride 103 mmol/L (96-108); Estimated Glomerular Filt Rate 52; Glucose Random 100 mg/dL (60-115); Potassium 4.2 mmol/L (3.3-5.1); Sodium 138 mmol/L (135-145)
== END 2023-08-03 09:02 | disposition home or self-care (01) ==
LOC: HO.WFDLDS 09:01
PROVIDERS: Internal Medicine; Visit Provider Internal Medicine Cardiovascular Disease
DX: Z13.89 Encounter for screening for other disorder (principal)
CPT/HCPCS: 36415; 80048; 80061; 80076

== ENCOUNTER 2023-08-05 11:28 | Inpatient (IN) | payer MEDICARE, SELFPAY ==
[2023-08-05] VITALS (11 sets, daily range): BP systolic 92–140; BP diastolic 70–88; PULSE 84–140; RESP 18–24; TEMP 36.4–39.3; O2SAT 94–99; BMI 26.3; BMI 27.7
--- NOTE | 2023-08-05 | ECG_ITS ---
Test Reason : ?sepsis Blood Pressure : / mmHG Vent. Rate : 122 BPM Atrial Rate : 000 BPM P-R Int : 000 ms QRS Dur : 070 ms QT Int : 302 ms P-R-T Axes : 000 012 211 degrees QTc Int : 430 ms Atrial fibrillation with rapid ventricular response Low voltage QRS Cannot rule out Anterior infarct (cited on or before 03-AUG-2021) T wave abnormality, consider lateral ischemia Abnormal ECG When compared with ECG of 03-AUG-2021 17:35, Vent. rate has increased BY 56 BPM Serial changes of Anterior infarct Present Referred By: Generic ED Physician Electronically Signed By:Taye Duong
--- NOTE | ~2023-08-05 | XR_ITS ---
EXAMINATION: XR CHEST CLINICAL INFORMATION: Tachypnea COMPARISON: Chest radiograph 08/03/2021 TECHNIQUE: 2 views of the chest were obtained. FINDINGS: Heart size is borderline enlarged. There is atelectasis/scarring present at the left lung base. No infiltrates, pleural effusions or suspicious lung masses are seen. No evidence of CHF XR/XR chest 2V IMPRESSION: No acute intrathoracic disease
--- NOTE | ~2023-08-05 | XR_ITS ---
EXAMINATION: XR CHEST CLINICAL INFORMATION: Atrial fibrillation. COMPARISON: Chest radiograph 08/05/2023. TECHNIQUE: Frontal view of the chest was obtained. FINDINGS: Stable cardiomediastinal silhouette. No focal airspace opacities, pleural effusion or pneumothorax. No evidence of pulmonary edema. No acute osseous findings. Visualized upper abdomen is within normal limits. EKG wires overlie the chest. XR/XR chest 1V IMPRESSION: No acute cardiopulmonary findings.
--- NOTE | 2023-08-05 11:30 | PC.NURSE ---
Pt presents to ED via EMS from home, reports he woke up this morning and had body aches, tremors, burning with urination and nausea. EMS gave him 500 mL NS and 4 mg of Zofran en route, improved his nausea. Pt presents tachycardic, 120-140 afib. Alert and oriented but noted to have periods of confusion, pt reports his head feels fuzzy . Breathing even but tachypneic. Skin hot and dry. Oral temp 102.8. MD alerted of vitals, possible sepsis criteria. 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
--- NOTE | 2023-08-05 11:57 | ED.GENADULT ---
HPI - General Adult General Chief complaint: General Medical Stated complaint: BODYACHES,BURN W/URINATION,NAUSEA,TREMORS,?'S UTI Time Seen by Provider: 08/05/23 11:57 History of Present Illness HPI narrative: The patient is a 78-year-old male who has felt unwell for about 2 days. Two days ago he started to feel body aches and also noticed some discomfort with urination. His symptoms worsened yesterday and today he was having shaking chills. He contacted his primary care doctor who advised him to come to the hospital by ambulance. He has felt feverish. No headache. No chest pain. No shortness of breath. No cough or sputum. He has some suprapubic discomfort but no other abdominal pain. No pain in his flanks. No vomiting Related Data Home Medications ?Medication ?Instructions ?Recorded ?Confirmed atorvastatin 10 mg tablet 10 mg PO DAILY 04/05/20 08/05/23 latanoprost 0.005 % eye drops 1 drp ophthalmic (eye) BEDTIME 04/05/20 08/05/23 levothyroxine 100 mcg tablet 100 mcg PO DAILY 04/05/20 08/05/23 omeprazole 20 mg capsule,delayed 20 mg PO DAILY 04/05/20 08/05/23 release dabigatran etexilate 150 mg 150 mg PO BID 10/07/20 08/05/23 capsule (Pradaxa) empagliflozin 10 mg tablet 10 mg PO DAILY@1200 08/05/23 08/05/23 (Jardiance) Previous Rx's ?Medication ?Instructions ?Recorded tamsulosin 0.4 mg capsule 0.4 mg PO BEDTIME #30 caps 08/09/21 diltiazem HCl 60 mg tablet 60 mg PO BID #180 tabs 11/26/22 metoprolol tartrate 50 mg tablet 50 mg PO BID #180 tabs 05/24/23 furosemide 20 mg tablet 40 mg PO DIRECTED 90 days #135 07/21/23 tabs Allergies Allergy/AdvReac Type Severity Reaction Status Date / Time No Known Allergies Allergy Verified 08/05/23 11:46 Review of Systems Review of Systems: Yes all other systems are reviewed and are negative [facility] Past Medical History Medical History (Updated 08/05/23 @ 16:53 by JUANA Fernando) Generalized anxiety disorder Hypothyroidism BPH (benign prostatic hyperplasia) Elevated troponin Chronic kidney disease (HFpEF) heart failure with preserved ejection fraction Chronic atrial fibrillation HTN (hypertension) Tricuspid regurgitation Biatrial enlargement Surgical History Hx of cataract surgery History of esophageal dilatation Hx of inguinal hernia repair History of appendectomy Family History Family History Father No problems noted. Mother HTN (hypertension) Social History Social History Household Members: Spouse Housing: House Alcohol intake: current Alcohol intake frequency: 0-2 drinks per day Alcohol type: beer and wine Patient Tobacco Use Status: Former Tobacco user Quit Date: 1967 Smoked: 10 +/- Smoked in Last 30 Days: No Use of substances other than those prescribed or required for medical reasons: No Advance Directives: Yes Advance Directives Information Provided: No Advance Directives on File: No Do you have a plan to hurt others: No Plan Current occupational status: retired Physical Exam ED Vital Signs: Vital Signs - 24 hr 08/05/23 11:42 08/05/23 12:23 08/05/23 12:54 Temperature 102.8 F H 102.8 F H Pulse Rate 138 H 110 H 89 Respiratory Rate 22 H 20 20 Blood Pressure 131/82 116/81 110/87 Pulse Oximetry 99 94 96 Oxygen Delivery Method Room Air Room Air Room Air 08/05/23 13:12 08/05/23 14:37 Temperature 99.6 F 99.1 F Pulse Rate 90 Respiratory Rate 22 H Blood Pressure 92/70 Pulse Oximetry 94 Oxygen Delivery Method Room Air BMI result Body Mass Index 27.7 Const Other: The patient is awake and alert. He has a pleasant 78-year-old male who looks mildly unwell but not acutely toxic. HENMT Other: Face is symmetrical. Mucous membranes moist. Eyes Other: Pupils are round equal, conjunctivae clear Neck Other: No JVD Resp Effort & Inspection: normal respiratory effort Auscultation: clear to auscultation bilaterally Cardio Other: Irregular rate and rhythm when no murmur GI Other: Abdomen is soft and nontender. Back/Spine/Pelvis Other: No CVA percussion tenderness on either flank. Skin Other: Skin is pale and dry. Neuro Other: The patient is awake and alert with a clear mental status. He is grossly neurologically intact. Extrem Other: No peripheral edema. Medications Administered Generic Name Dose Route Start Last Admin Trade Name Freq PRN Reason Stop Dose Admin Empagliflozin 10 mg 08/05/23 16:20 08/05/23 17:15 Empagliflozin 10 Mg Tablet PO 10 mg DAILY@1200 KSENIA Administration Discontinued Medications Generic Name Dose Route Start Last Admin Trade Name Freq PRN Reason Stop Dose Admin Acetaminophen 975 mg 08/05/23 11:52 08/05/23 12:07 Acetaminophen 325 Mg Tablet PO 08/05/23 11:53 975 mg ONCE ONE Administration Ceftriaxone Sodium 1 gm/ 50 mls @ 100 mls/hr 08/05/23 12:04 08/05/23 13:03 Sodium Chloride IV 08/05/23 12:33 Infused ONCE ONE Infusion Sodium Chloride 1,000 mls @ 999 mls/hr 08/05/23 12:15 08/05/23 13:29 Ns IV 08/05/23 13:15 Infused .Q1H1M KSENIA Infusion Sodium Chloride 1,000 mls @ 999 mls/hr 08/05/23 15:00 08/05/23 17:23 Ns IV 08/05/23 16:00 Infused .Q1H1M KSENIA Infusion Medical Decision Making Medical Decision Making MDM Narrative: The patient is a pleasant 78-year-old male who presents with 2 days of body aches and dysuria and also who experienced rigors at home today. His temperature was 102.8 degrees and he certainly seemed to be potentially septic from a urinary source. Blood cultures and urine culture were obtained and he was given ceftriaxone. He was given IV fluids. His initial lactate was 2.0. A 2nd lactate was 1.7. He was given IV fluids and seemed reasonably hemodynamically stable and will be admitted to the hospitalist service Lab Data 08/05/23 12:08 08/05/23 12:08 Labs: Lab Results 08/05/23 08/05/23 08/05/23 Range/Units 12:08 12:18 13:56 WBC 11.7 H (4.8-10.8) X10*3/uL RBC 5.01 (4.60-5.80) X10*6/uL Hgb 16.2 (14.0-18.0) g/dl Hct 46.3 (42.0-52.0) % MCV 92.4 (80.0-98.0) fL MCH 32.3 (27.0-33.0) pg MCHC 35.0 (31.0-36.0) g/dl RDW 14.4 (11.0-16.0) % Plt Count 150 L (160-400) X10*3/uL MPV 9.9 (9.4-12.4) fL Immature Gran % (Auto) 0.4 (0.0-0.4) % Neut % (Auto) 89.4 H (45-73) % Lymph % (Auto) 2.7 L (20-40) % Williamson % (Auto) 7.0 (2-11) % Eos % (Auto) 0.1 (0-4) % Baso % (Auto) 0.4 (0-2) % Lymph # (Auto) 0.3 L (1.2-4.9) X10*3/uL [place] # (Auto) 0.8 (0.1-1.2) X10*3/uL Eos # (Auto) 0.0 (0.0-0.4) X10*3/uL Baso # (Auto) 0.1 (0.0-0.2) X10*3/uL Abs Immat Gran (auto) 0.05 H (0.00-0.03) X10*3/uL Absolute Neuts (auto) 10.5 H (2.0-8.3) x10*3/uL Absolute Nucleated RBC 0.000 (0.0-0.012) X10*3/uL Nucleated RBC % (auto) 0.0 (0.0-0.2) /100WBC PT 13.8 H (11.1-13.3) SEC INR 1.1 (0.9-1.1) Sodium 136 (135-145) mmol/L Potassium 3.9 (3.3-5.1) mmol/L Chloride 107 (96-108) mmol/L Carbon Dioxide 19 L (22-29) mmol/L Anion Gap 14 (12-20) BUN 19 H (9-16) mg/dL Creatinine 1.26 (0.5-1.4) mg/dL Estim Creat Clear Calc 50.6 Estimated GFR 55 Random Glucose 123 H (60-115) mg/dL Lactic Acid 2.0 1.7 (0.5-2.0) mmol/L Calcium 9.5 (8.4-10.2) mg/dL Total Bilirubin 1.6 H (0.0-1.0) mg/dL AST 19 (5-37) U/L ALT 15 (0-40) U/L Alkaline Phosphatase 83 (39-117) U/L Total Protein 7.4 (6.5-8.0) g/dL Albumin 4.0 (3.5-5.0) g/dL Urine Color Yellow Urine Appearance Turbid Urine pH 5.5 (5.0-9.0) Ur Specific [place] 1.015 (1.005-1.025) Urine Protein 30 (1+) H (Neg-Trace) mg/dL Urine Glucose (UA) >=1000 H (Negative) mg/dL Urine Ketones Negative (Negative) mg/dL Urine Blood Large (3+) H (Negative) Urine Nitrite Positive H (Negative) Ur Leukocyte Esterase Large (3+) H (Negative) Urine RBC >20 H (0-2) /HPF Urine WBC >50 H (0-5) /HPF Ur Squamous Epith Cells 0-2 (0-2) /HPF Urine Bacteria 4+ (None Seen) Hyaline Casts 0-2 (0-2) /LPF COVID-19 (JORGE) Negative (Negative) COVID-19 Clin Com See Note Influenza Type A (JOSIE) Negative (Negative) Influenza Type B (JOSIE) Negative (Negative) Influenza A & B Note See Note Critical Care Time Critical Care Time Total Critical Care Time: 35 Attestation: The patient was critically ill with a high probability of imminent or life-threatening deterioration. ?I spent greater than 30 minutes of discontinuous time evaluating the patient, delivering critical care at the bedside, discussing evaluating data with consultants. ?Critical care time does not include time spent performing separately billable procedures or teaching. ?Time spent performing critical care with 35 minutes. Discharge Plan Discharge Clinical Impression: Sepsis secondary to UTI Patient Disposition: Admitted As Inpatient
[2023-08-05] MEDS: Acetaminophen 325 MG TABLET 975 MG PO (12:07)
[2023-08-05] MEDS: 0.9 % Sodium Chloride 1,000 ML 999 ML IV ×2 (12:11→15:05)
[2023-08-05 12:15] LABS: MANUAL DIFF FLAG NO
[2023-08-05 12:17] LABS: Basophils Absolute Auto 0.1 X10*3/uL (0.0-0.2); Basophils Percent Auto 0.4 % (0-2); Eosinophils Percent Auto 0.1 % (0-4); Hematocrit 46.3 % (42.0-52.0); Hemoglobin 16.2 g/dl (14.0-18.0); Imm Gran Abs Auto 0.05 X10*3/uL (0.00-0.03); Imm Gran Pct Auto 0.4 % (0.0-0.4); Lymphocytes Absolute Auto 0.3 X10*3/uL (1.2-4.9); Lymphocytes Percent Auto 2.7 % (20-40); Mean Corpuscular Hemoglobin 32.3 pg (27.0-33.0); Mean Corpuscular Volume 92.4 fL (80.0-98.0); Mean Platelet Volume 9.9 fL (9.4-12.4); Monocytes Absolute Auto 0.8 X10*3/uL (0.1-1.2); Neutrophils Absolute Auto 10.5 x10*3/uL (2.0-8.3); Neutrophils Percent Auto 89.4 % (45-73); Platelet Count 150 X10*3/uL (160-400); Red Blood Count 5.01 X10*6/uL (4.60-5.80); Red Cell Distribution Width 14.4 % (11.0-16.0); White Blood Count 11.7 X10*3/uL (4.8-10.8)
[2023-08-05] MEDS: cefTRIAXone sodium 1 GM in 0.9 % Sodium Chloride 50 ML IV (12:19)
[2023-08-05 12:27] LABS: Appearance Urine Turbid; Color Urine Yellow; Glucose Urine UA >=1000 mg/dL (Negative); Leukocyte Esterase Urine Large (3+) (Negative); Nitrite Urine Positive (Negative); PH 5.5 (5.0-9.0); Specific Gravity - Urine 1.015 (1.005-1.025); UMIC TRIGGER UACC YES; Urine Blood Large (3+) (Negative); Urine Ketones Negative (Negative); Urine Protein 30 (1+) mg/dL (Neg-Trace)
[2023-08-05 12:29] LABS: Bacteria Urine 4+ (None Seen); Hyaline Casts Urine 0-2 /LPF (0-2); RBC Urine >20 /HPF (0-2); Squamous Epithelial Cell Urine 0-2 /HPF (0-2); UACC Culture Trigger YES; WBC Urine >50 /HPF (0-5)
[2023-08-05 12:30] LABS: COVID-19 Test Negative (Negative); IDNOW Serial# 08D9AD1C
[2023-08-05 12:31] LABS: Alanine Aminotransferase 15 U/L (0-40); Alkaline Phosphatase 83 U/L (39-117); Anion Gap 14 (12-20); Aspartate Amino Transferase 19 U/L (5-37); Bilirubin Total 1.6 mg/dL (0.0-1.0); Blood Urea Nitrogen 19 mg/dL (9-16); Calcium 9.5 mg/dL (8.4-10.2); Carbon Dioxide 19 mmol/L (22-29); Chloride 107 mmol/L (96-108); Creatinine Clr Calc Pharmacy 50.6; Estimated Glomerular Filt Rate 55; Glucose Random 123 mg/dL (60-115); Potassium 3.9 mmol/L (3.3-5.1); Sodium 136 mmol/L (135-145); Total Protein 7.4 g/dL (6.5-8.0)
[2023-08-05 12:32] LABS: INTERNATIONAL NORM RATIO 1.1 (0.9-1.1); Prothrombin Time 13.8 SEC (11.1-13.3)
[2023-08-05 12:34] LABS: IDNOW Serial# 152EDE1D; Influenza A Negative (Negative); Influenza B2 Negative (Negative)
[2023-08-05 14:10] LABS: Lactic Acid 1.7 mmol/L (0.5-2.0)
--- NOTE | 2023-08-05 15:08 | P.HPHOSP_ITS ---
History of Present Illness Date of Service: 08/05/23 Attending physician on admission: Noa Stringer Chief Complaint: Dysuria, body aches, nausea Pt is a 78-year-old male with a PMH significant for?persistent AFib on Pradaxa, HFpEF, HTN, hypothyroidism, GERD, BPH, and anxiety who presents to the ED with dysuria, myalgias, and shaking chills. Patient reports experiencing myalgias, arthralgias, painful urination, and foul-smelling urine for the past few days. This morning after breakfast then experienced uncontrollable shaking chills which prompted a telehealth visit with his PCP who suggested coming to the ED for further evaluation. Patient denies chest pain/pressure, palpitations. No shortness of breath. No nausea, vomiting, or abdominal pain. In the ED pt was febrile up to 102.8, tachycardic up to 138, and tachypneic up to 22. Labs were significant for leukocytosis of 11.7 and testing positive for UA, otherwise grossly unremarkable and baseline for patient. Stable H&H. No significant electrolyte abnormalities. Renal function baseline. Lactic acid WNL 2.0 with repeat 1.7. Bilirubin 1.6, chronically elevated around baseline. Tested negative for COVID, RSV, flu. CXR showed no acute intrathoracic disease. EKG demonstrated AFib with RVR of 122 with T-wave inversions in lateral leads. Pt was treated with ceftriaxone, IVF, and acetaminophen. Pt will be admitted to the hospital for treatment and further evaluation of acute UTI with sepsis. Review of Systems 2 Review of Systems: Dysuria Increased urgency Myalgias, arthralgias Rigors Denies nausea, vomiting, abdominal pain No chest pain/pressure, palpitations Denies shortness of breath [facility] Medical History (Updated 08/05/23 @ 16:53 by JUANA Fernando) Generalized anxiety disorder Hypothyroidism BPH (benign prostatic hyperplasia) Elevated troponin Chronic kidney disease (HFpEF) heart failure with preserved ejection fraction Chronic atrial fibrillation HTN (hypertension) Tricuspid regurgitation Biatrial enlargement Family History Father No problems noted. Mother HTN (hypertension) Surgical History Hx of cataract surgery History of esophageal dilatation Hx of inguinal hernia repair History of appendectomy Social History Household Members: Spouse Housing: House Do you presently have visiting nurse or other home services: No Alcohol intake: current Alcohol intake frequency: 0-2 drinks per day Alcohol type: beer and wine Patient Tobacco Use Status: Former Tobacco user Quit Date: 1969 Years Smoked: 10 +/- Smoked in Last 30 Days: No Use of substances other than those prescribed or required for medical reasons: No Currently Displaying Signs/Symptoms of Drug Intoxication Withdrawal: No Have you been hit, kicked, punched, or otherwise hurt by someone within the past year? If so, by whom?: No Do you feel safe in your current relationship?: Yes Is there a partner from a previous relationship who is making you feel unsafe now?: No Are you made to feel afraid or neglected: No Nondenominational Healthcare Practices: amish Advance Directives: Yes Advance Directives Information Provided: No Advance Directives on File: No Advance Directives Date on File: 08/05/23 Do you have a plan to hurt others: No Plan Recently lost weight without trying: No Nutrition Risks: No Nutritional Risk Current occupational status: retired [employer] Allergies Allergy/AdvReac Type Severity Reaction Status Date / Time No Known Allergies Allergy Verified 08/05/23 11:46 Active Medications: Current Medications Sodium Chloride (Ns) 1,000 mls @ 999 mls/hr IV .Q1H1M KSENIA Stop: 08/05/23 16:00 Last Admin: 08/05/23 15:05 Dose: 999 mls/hr Home Medications ?Medication ?Instructions ?Recorded ?Confirmed ?Last Taken ?Type atorvastatin 10 mg tablet 10 mg PO DAILY 04/05/20 08/05/23 08/05/23 History latanoprost 0.005 % eye drops 1 drp ophthalmic (eye) BEDTIME 04/05/20 08/05/23 08/04/23 History levothyroxine 100 mcg tablet 100 mcg PO DAILY 04/05/20 08/05/23 08/05/23 History omeprazole 20 mg capsule,delayed 20 mg PO DAILY 04/05/20 08/05/23 08/05/23 History release dabigatran etexilate 150 mg 150 mg PO BID 10/07/20 08/05/23 08/05/23 History capsule (Pradaxa) empagliflozin 10 mg tablet 10 mg PO DAILY@1200 08/05/23 08/05/23 08/04/23 History (Jardiance) Physical Exam 2 Vital Signs and Narrative: Vital Signs: Last Vital Signs Temp 99.1 F 08/05/23 14:37 Pulse 90 08/05/23 14:37 Resp 22 H 08/05/23 14:37 BP 92/70 08/05/23 14:37 Pulse Ox 94 08/05/23 14:37 O2 Del Method Room Air 08/05/23 14:37 BMI result Body Mass Index 27.7 Constitutional: Alert, in no acute distress. Mental Status: Oriented to person, place and time. Eyes: Pupils are equal, round, and reactive to light. Ear, Nose, and Throat: Oropharynx clear, mucous membranes moist. Ears and nose without deformities. Trachea midline. Respiratory: Clear to auscultation bilaterally. No wheezing, rales, or rhonchi. Cardiovascular: Irregularly irregular rhythm. Gastrointestinal: Abdomen soft, non-tender, non-distended. Normal bowel sounds. Back: No CVA tenderness. Neurologic: Cranial nerves II-XII are grossly intact bilaterally. No focal neurological deficits. Moves all extremities spontaneously. Skin: Warm, dry. Extremities: No edema. Psychiatric: Normal mood and affect. Results Labs 08/06/23 05:06 08/06/23 05:06 Labs: Laboratory Results - last 24 hr 08/05/23 08/05/23 08/05/23 12:08 12:18 13:56 MCV 92.4 MCH 32.3 MCHC 35.0 RDW 14.4 Plt Count 150 L MPV 9.9 Immature Gran % (Auto) 0.4 Neut % (Auto) 89.4 H Lymph % (Auto) 2.7 L Richardson % (Auto) 7.0 Eos % (Auto) 0.1 Baso % (Auto) 0.4 Lymph # (Auto) 0.3 L Richardson # (Auto) 0.8 Eos # (Auto) 0.0 Baso # (Auto) 0.1 Abs Immat Gran (auto) 0.05 H Absolute Neuts (auto) 10.5 H Absolute Nucleated RBC 0.000 Nucleated RBC % (auto) 0.0 PT 13.8 H INR 1.1 Anion Gap 14 Estim Creat Clear Calc 50.6 Estimated GFR 55 Random Glucose 123 H Lactic Acid 2.0 1.7 Calcium 9.5 Total Bilirubin 1.6 H AST 19 ALT 15 Alkaline Phosphatase 83 Total Protein 7.4 Albumin 4.0 Urine Color Yellow Urine Appearance Turbid Urine pH 5.5 Ur Specific [place] 1.015 Urine Protein 30 (1+) H Urine Glucose (UA) >=1000 H Urine Ketones Negative Urine Blood Large (3+) H Urine Nitrite Positive H Ur Leukocyte Esterase Large (3+) H Urine RBC >20 H Urine WBC >50 H Ur Squamous Epith Cells 0-2 Urine Bacteria 4+ Hyaline Casts 0-2 COVID-19 (JORGE) Negative COVID-19 Clin Com See Note Influenza Type A (JOSIE) Negative Influenza Type B (JOSIE) Negative Influenza A & B Note See Note Imaging Radiologist's Impressions: Impressions Chest X-Ray 08/05/23 12:59 IMPRESSION: No acute intrathoracic disease Assessment and Plan (1) Sepsis secondary to UTI: Status: Acute Plan Pt is a 78-year-old male with a PMH significant for?persistent AFib on Pradaxa, HFpEF, HTN, hypothyroidism, GERD, BPH, and anxiety who presents to the ED with dysuria, myalgias, and shaking chills. Pt will be admitted to the hospital for treatment and further evaluation of acute UTI with sepsis. UTI with sepsis Pt with dysuria, increased urgency, myalgias, arthralgias, rigors, UA positive Pt meets sepsis criteria: fever, tachycardia, tachypnea; lactic acid WNL at 2.0 Pt given IVF and started on broad-spectrum antibiotics in the ED Will treat with ceftriaxone, started 08/05/2023 Follow cultures Chronic AFib Initially tachycardic into the 130s, currently rate controlled in the 80s-90s Continue diltiazem, metoprolol, Pradaxa Will admit to med [facility] with continuous cardiac monitoring HFpEF Not in acute exacerbation Continue home furosemide, Jardiance HLD Continue statin Hypothyroidism Continue levothyroxine BPH Continue tamsulosin GERD PPI Anxiety Continue clonazepam Full Code Attending:?Dr. Stringer DVT Prophylaxis: On Pradaxa Pt will require a hospitalization of at least two nights for treatment of?acute UTI with sepsis with IV antibiotics and close monitoring labs, vitals, and cardiac function. Quality Stroke Does the patient have a stroke diagnosis?: No VTE Prior VTE?: No VTE Risk Level:: Medical - moderate - high VTE Device Contraindication: Treatment Not Indicated VTE Drug Contraindication: N/A - Med Ordered
--- NOTE | 2023-08-05 17:09 | PHA.MEDREC ---
Addendum entered by Adithya Rodríguez RPh 08/05/23 18:14: Patient said that he takes furosemide 40 mg daily. Original Note: Pharmacy Consult ? Medication Reconciliation Pharmacy has completed the medication reconciliation. Spoke to patient and confirmed medication list.
[2023-08-05] MEDS: Empagliflozin 10 MG TABLET PO (17:15)
--- NOTE | 2023-08-05 20:07 | PC.NURSE ---
pt resting comfortably, awaiting transport to room upstairs
[2023-08-05] MEDS: dilTIAZem HCL 60 MG TABLET PO (22:15)
[2023-08-05] MEDS: Metoprolol Tartrate 50 MG TABLET PO (22:16)
[2023-08-05] MEDS: Dabigatran Etexilate Mesylate 150 MG CAPSULE PO (22:16)
[2023-08-05] MEDS: Tamsulosin HCL 0.4 MG CAPSULE PO (22:16)
--- NOTE | 2023-08-05 23:38 | PC.RT ---
Pt refused, states he wears at home but does not want here
[2023-08-06] VITALS (8 sets, daily range): BP systolic 108–122; BP diastolic 65–78; PULSE 90–104; RESP 16–18; TEMP 36.1–37.2; O2SAT 94–98
[2023-08-06] MEDS: 0.9 % Sodium Chloride Flush 3 ML SYRINGE IVFLUSH ×3 (00:44→20:52)
--- NOTE | 2023-08-06 02:50 | PM.EVENT ---
Event Note Date of Service: 08/06/23 Event Note: Was informed about positive blood cultures by RN. /2 with Gram-negative rods. Will increase ceftriaxone dosage to 2 g Time Spent With Patient Time: Total time managing care of this patient today ____ minutes.
[2023-08-06] MEDS: cefTRIAXone sodium 2 GM in 0.9 % Sodium Chloride 50 ML IV (03:41)
[2023-08-06] MEDS: Omeprazole 20 MG CAPSULE.DR PO (05:15)
[2023-08-06] MEDS: Levothyroxine Sodium 100 MCG TABLET PO (05:15)
[2023-08-06 05:39] LABS: Hemoglobin 13.9 g/dl (14.0-18.0); Mean Corpuscular HGB Conc 33.9 g/dl (31.0-36.0); Mean Corpuscular Volume 94.3 fL (80.0-98.0); Mean Platelet Volume 10.4 fL (9.4-12.4); Platelet Count 137 X10*3/uL (160-400); Red Blood Count 4.35 X10*6/uL (4.60-5.80); Red Cell Distribution Width 14.5 % (11.0-16.0); White Blood Count 14.9 X10*3/uL (4.8-10.8)
[2023-08-06 05:55] LABS: Anion Gap 16 (12-20); Blood Urea Nitrogen 14 mg/dL (9-16); Calcium 9.2 mg/dL (8.4-10.2); Carbon Dioxide 22 mmol/L (22-29); Chloride 104 mmol/L (96-108); Creatinine Clr Calc Pharmacy 44.9; Estimated Glomerular Filt Rate 48; Glucose Random 100 mg/dL (60-115); Potassium 3.9 mmol/L (3.3-5.1); Sodium 138 mmol/L (135-145)
[2023-08-06] MEDS: Metoprolol Tartrate 50 MG TABLET PO ×2 (08:50→20:52)
[2023-08-06] MEDS: Atorvastatin Calcium 10 MG TABLET PO (08:50)
[2023-08-06] MEDS: Dabigatran Etexilate Mesylate 150 MG CAPSULE PO ×2 (08:52→20:52)
[2023-08-06] MEDS: Empagliflozin 10 MG TABLET PO (12:01)
--- NOTE | 2023-08-06 13:42 | P.PNIM_ITS ---
Subjective Subjective Date of Service: 08/06/23 Interval History: Being followed for sepsis due to UTI Feeling significantly better with no recurrent episodes of shaking chills or myalgia, continued to have mild dysuria, tolerating diet no other acute issues overnight, noted to have soft blood pressure this morning, and had low blood pressure 92/70 yesterday evening. Patient denies lightheadedness or dizziness. Review of Systems All other system reviewed and negative Physical Exam 2 Vital Signs: Vital Signs: Last Vital Signs Temp 97.8 F 08/06/23 12:00 Pulse 98 08/06/23 12:00 Resp 16 08/06/23 12:00 BP 114/73 08/06/23 12:00 Pulse Ox 98 08/06/23 12:00 O2 Del Method Room Air 08/06/23 12:00 O2 Flow Rate 2 08/05/23 23:19 BMI result Body Mass Index 27.7 Const: Other: General awake alert x3, resting comfortably in no acute distress. Anicteric sclera Neck supple no JVD. CVS regular rate rhythm, Respiratory lungs clear to auscultation, no respiratory distress, no wheeze, no rhonchi. Gastrointestinal abdomen soft, non tender, bowel sounds audible, no guarding , no rigidity. Extremities no edema. Neuro non focal . Skin no rash Psych appropriate affect Objective Data Active Medications Acetaminophen (Acetaminophen 325 Mg Tablet) 650 mg PO Q6H PRN PRN Reason: Mild pain, fever, or headache Atorvastatin Calcium (Atorvastatin Calcium 10 Mg Tablet) 10 mg PO DAILY REPLACED BY [facility] Last Admin: 08/06/23 08:50 Dose: 10 mg Documented By: TERRENCE Benzonatate (Benzonatate 100 Mg Capsule) 100 mg PO TID PRN PRN Reason: Cough Dabigatran (Dabigatran Etexilate Mesylate 150 Mg Capsule) 150 mg PO BID REPLACED BY [facility] Last Admin: 08/06/23 08:52 Dose: 150 mg Documented By: TERRENCE Diltiazem HCl (Diltiazem Hcl 60 Mg Tablet) 60 mg PO BID REPLACED BY [facility]; Protocol Last Admin: 08/06/23 08:57 Dose: Not Given Documented By: TERRENCE Non-Admin Reason: Physician Held Med Docusate Sodium (Docusate Sodium 100 Mg Capsule) 100 mg PO DAILY PRN PRN Reason: Constipation Empagliflozin (Empagliflozin 10 Mg Tablet) 10 mg PO DAILY@1200 REPLACED BY [facility] Last Admin: 08/06/23 12:01 Dose: 10 mg Documented By: TERRENCE Furosemide (Furosemide 40 Mg Tablet) 40 mg PO DAILY REPLACED BY [facility]; Protocol Last Admin: 08/06/23 08:50 Dose: Not Given Documented By: TERRENCE Non-Admin Reason: Physician Held Med Ceftriaxone Sodium 2 gm/ (Sodium Chloride) 50 mls @ 100 mls/hr IV Q24H REPLACED BY [facility] Last Infusion: 08/06/23 04:14 Dose: Infused Documented By: ANTOIC Sodium Chloride (Ns) 1,000 mls @ 100 mls/hr IVCONT .Q10H REPLACED BY [facility] Stop: 08/06/23 23:44 Latanoprost (Latanoprost 0.005 % Ophth Amanda 2.5 Ml Drops) 1 drop EYE-BOTH BEDTIME REPLACED BY [facility] Last Admin: 08/05/23 22:17 Dose: Not Given Documented By: PIA Non-Admin Reason: not available,pharmacy notified Levothyroxine Sodium (Levothyroxine Sodium 100 Mcg Tablet) 100 mcg PO DAILY@0600 REPLACED BY [facility] Last Admin: 08/06/23 05:15 Dose: 100 mcg Documented By: CHUYITA Melatonin (Melatonin 3 Mg Tablet) 6 mg PO BEDTIME PRN PRN Reason: Insomnia Metoprolol Tartrate (Metoprolol Tartrate 50 Mg Tablet) 50 mg PO BID REPLACED BY [facility]; Protocol Last Admin: 08/06/23 08:50 Dose: 50 mg Documented By: TERRENCE Omeprazole (Omeprazole 20 Mg Capsule.) 20 mg PO DAILY@0630 REPLACED BY [facility] Last Admin: 08/06/23 05:15 Dose: 20 mg Documented By: CHUYITA Ondansetron HCl (Ondansetron Hcl 4 Mg/2 Ml Vial) 4 mg IVPUSH Q8H PRN PRN Reason: Nausea and Vomiting Sodium Chloride (0.9 % Sodium Chloride Flush 3 Ml Syringe) 3 ml IVFLUSH QSHIFT REPLACED BY [facility] Last Admin: 08/06/23 08:29 Dose: 3 ml Documented By: TERRENCE Tamsulosin HCl (Tamsulosin Hcl 0.4 Mg Capsule) 0.4 mg PO BEDTIME REPLACED BY [facility] Last Admin: 08/05/23 22:16 Dose: 0.4 mg Documented By: PIA Labs 08/06/23 05:06 08/06/23 05:06 Labs: Laboratory Results - last 24 hr 08/05/23 08/06/23 13:56 05:06 MCV 94.3 MCH 32.0 MCHC 33.9 RDW 14.5 Plt Count 137 L MPV 10.4 Absolute Nucleated RBC 0.000 Nucleated RBC % (auto) 0.0 Anion Gap 16 Estim Creat Clear Calc 44.9 Estimated GFR 48 Random Glucose 100 Lactic Acid 1.7 Calcium 9.2 Microbiology Microbiology Results: Microbiology 08/05/23 Unknown Urine Culture - Preliminary Urine clean catch - Urine baez top Gram negative dontae 08/05/23 12:08 Blood Culture - Preliminary Blood - Venous Prelim: GNR Gram Stain only Assessment and Plan (1) Sepsis secondary to UTI: Status: Acute (2) Chronic atrial fibrillation: Status: Acute Plan Pt is a 78-year-old male with a PMH significant for?persistent AFib on Pradaxa, HFpEF, HTN, hypothyroidism, GERD, BPH, and anxiety who presents to the ED with dysuria, myalgias, and shaking chills. Pt will be admitted to the hospital for treatment and further evaluation of acute UTI with sepsis. UTI with sepsis Myalgias, rigors resolved, persistent dysuria Pt meets sepsis criteria: fever, tachycardia, tachypnea; lactic acid WNL at 2.0 No recurrent fevers since admission, tachypnea and tachycardia improved, noted to have bump in WBC from 11.7-14.9 Urine and blood culture positive for Gram-negative rods, continue IV ceftriaxone 2 g daily, started 08/05/2023 Follow final cultures Chronic AFib Initially tachycardic into the 130s, currently rate controlled ,Continue diltiazem, metoprolol, Pradaxa continue cardiac monitoring Chronic kidney disease stage 3 slight bump in creatinine but no acute kidney injury, will treat with 1 L of IV fluid follow renal function, hold Lasix and avoid hypotension. HFpEF Not in acute exacerbation, hold Lasix due to soft blood pressures, continue Jardiance HLD Continue statin Hypothyroidism Continue levothyroxine BPH Continue tamsulosin GERD PPI Anxiety Continue clonazepam Full Code DVT Prophylaxis: On Pradaxa Pt will require continued inpatient hospitalization for treatment of?acute UTI with sepsis with IV antibiotics and close monitoring labs, vitals, and cardiac function. Quality Stroke Does the patient have a stroke diagnosis?: No VTE Prior VTE?: No VTE Risk Level:: Medical - moderate - high VTE Device Contraindication: Treatment Not Indicated VTE Drug Contraindication: N/A - Med Ordered
--- NOTE | 2023-08-06 13:49 | MHC.CM.PN ---
IMM delivered. Patient lives in a home w/ his . Functionally independent. Denies use of services. Has CPAP, believes he [facility] supplies through [facility]. PCP Maykel Levin MD Reports he has an HCP and is his agent. Copy requested. DP: Goal is home self care. Son to transport. CM will continue to follow.
[2023-08-06] MEDS: 0.9 % Sodium Chloride 1,000 ML 100 ML IVCONT (14:26)
[2023-08-06] MEDS: Tamsulosin HCL 0.4 MG CAPSULE PO (20:52)
[2023-08-07] VITALS (9 sets, daily range): BP systolic 112–136; BP diastolic 66–88; PULSE 70–97; RESP 18–20; TEMP 36.1–36.6; O2SAT 97–98
--- NOTE | 2023-08-07 02:20 | PC.NURSE ---
0155 pt has 9 beat v-tach. notified.No new orders.
[2023-08-07] MEDS: cefTRIAXone sodium 2 GM in 0.9 % Sodium Chloride 50 ML IV (02:58)
[2023-08-07] MEDS: Omeprazole 20 MG CAPSULE.DR PO (05:36)
[2023-08-07] MEDS: Levothyroxine Sodium 100 MCG TABLET PO (05:36)
[2023-08-07 06:41] LABS: Hematocrit 40.1 % (42.0-52.0); Hemoglobin 13.4 g/dl (14.0-18.0); Mean Corpuscular HGB Conc 33.4 g/dl (31.0-36.0); Mean Corpuscular Hemoglobin 31.2 pg (27.0-33.0); Mean Corpuscular Volume 93.3 fL (80.0-98.0); Mean Platelet Volume 10.4 fL (9.4-12.4); Platelet Count 124 X10*3/uL (160-400); Red Cell Distribution Width 14.7 % (11.0-16.0); White Blood Count 13.2 X10*3/uL (4.8-10.8)
[2023-08-07 06:55] LABS: Anion Gap 14 (12-20); Blood Urea Nitrogen 15 mg/dL (9-16); Calcium 8.9 mg/dL (8.4-10.2); Carbon Dioxide 19 mmol/L (22-29); Chloride 107 mmol/L (96-108); Creatinine Clr Calc Pharmacy 60.1; Estimated Glomerular Filt Rate > 60; Glucose Random 88 mg/dL (60-115); Potassium 3.7 mmol/L (3.3-5.1); Sodium 136 mmol/L (135-145)
[2023-08-07] MEDS: Dabigatran Etexilate Mesylate 150 MG CAPSULE PO ×2 (08:38→20:02)
[2023-08-07] MEDS: 0.9 % Sodium Chloride Flush 3 ML SYRINGE IVFLUSH ×3 (08:38→20:03)
[2023-08-07] MEDS: Atorvastatin Calcium 10 MG TABLET PO (08:38)
[2023-08-07] MEDS: Metoprolol Tartrate 50 MG TABLET PO ×2 (08:39→20:03)
[2023-08-07] MEDS: dilTIAZem HCL 60 MG TABLET PO ×2 (08:39→20:02)
--- NOTE | 2023-08-07 10:29 | HO.PM.IMPN ---
Subjective Subjective Date of Service: 08/07/23 Interval History: Being followed for Gram-negative dontae bacteremia Patient offers no complaints, no fevers, no chills, no dysuria has been ambulating with no lightheadedness or dizziness, no acute events overnight. Review of Systems All other system reviewed and negative Physical Exam Vital Signs: Vital Signs: Last Vital Signs Temp 96.9 F 08/07/23 08:00 Pulse 97 08/07/23 08:39 Resp 20 08/07/23 08:00 BP 120/81 08/07/23 08:39 Pulse Ox 97 08/07/23 08:00 O2 Del Method Room Air 08/07/23 08:00 O2 Flow Rate 2 08/05/23 23:19 BMI result Body Mass Index 27.7 Const: Other: General awake alert x3, resting comfortably in no acute distress. Anicteric sclera Neck supple no JVD. CVS regular rate rhythm, Respiratory lungs clear to auscultation, no respiratory distress, no wheeze, no rhonchi. Gastrointestinal abdomen soft, non tender, bowel sounds audible, no guarding , no rigidity. Extremities no edema. Neuro non focal . Skin no rash Psych appropriate affect Objective Data Active Medications Acetaminophen (Acetaminophen 325 Mg Tablet) 650 mg PO Q6H PRN PRN Reason: Mild pain, fever, or headache Atorvastatin Calcium (Atorvastatin Calcium 10 Mg Tablet) 10 mg PO DAILY [facility] Last Admin: 08/07/23 08:38 Dose: 10 mg Documented By: SANTHOSH Benzonatate (Benzonatate 100 Mg Capsule) 100 mg PO TID PRN PRN Reason: Cough Dabigatran (Dabigatran Etexilate Mesylate 150 Mg Capsule) 150 mg PO BID [facility] Last Admin: 08/07/23 08:38 Dose: 150 mg Documented By: SANTHOSH Diltiazem HCl (Diltiazem Hcl 60 Mg Tablet) 60 mg PO BID [facility]; Protocol Last Admin: 08/07/23 08:39 Dose: 60 mg Documented By: SANTHOSH Docusate Sodium (Docusate Sodium 100 Mg Capsule) 100 mg PO DAILY PRN PRN Reason: Constipation Empagliflozin (Empagliflozin 10 Mg Tablet) 10 mg PO DAILY@1200 [facility] Last Admin: 08/06/23 12:01 Dose: 10 mg Documented By: TERRENCE Furosemide (Furosemide 40 Mg Tablet) 40 mg PO DAILY [facility]; Protocol Last Admin: 08/07/23 08:44 Dose: Not Given Documented By: SANTHOSH Non-Admin Reason: held Ceftriaxone Sodium 2 gm/ (Sodium Chloride) 50 mls @ 100 mls/hr IV Q24H [facility] Last Infusion: 08/07/23 03:28 Dose: Infused Documented By: MAHNAZ Latanoprost (Latanoprost 0.005 % Ophth Amanda 2.5 Ml Drops) 1 drop EYE-BOTH BEDTIME [facility] Last Admin: 08/06/23 20:56 Dose: Not Given Documented By: MAHNAZ Non-Admin Reason: Med Not Available Levothyroxine Sodium (Levothyroxine Sodium 100 Mcg Tablet) 100 mcg PO DAILY@0600 [facility] Last Admin: 08/07/23 05:36 Dose: 100 mcg Documented By: MAHNAZ Melatonin (Melatonin 3 Mg Tablet) 6 mg PO BEDTIME PRN PRN Reason: Insomnia Metoprolol Tartrate (Metoprolol Tartrate 50 Mg Tablet) 50 mg PO BID [facility]; Protocol Last Admin: 08/07/23 08:39 Dose: 50 mg Documented By: SANTHOSH Omeprazole (Omeprazole 20 Mg Capsule.) 20 mg PO DAILY@0630 [facility] Last Admin: 08/07/23 05:36 Dose: 20 mg Documented By: MAHNAZ Ondansetron HCl (Ondansetron Hcl 4 Mg/2 Ml Vial) 4 mg IVPUSH Q8H PRN PRN Reason: Nausea and Vomiting Sodium Chloride (0.9 % Sodium Chloride Flush 3 Ml Syringe) 3 ml IVFLUSH QSHIFT [facility] Last Admin: 08/07/23 08:38 Dose: 3 ml Documented By: SANTHOSH Tamsulosin HCl (Tamsulosin Hcl 0.4 Mg Capsule) 0.4 mg PO BEDTIME [facility] Last Admin: 08/06/23 20:52 Dose: 0.4 mg Documented By: MAHNAZ Labs 08/07/23 06:08 08/07/23 06:08 Labs: Laboratory Results - last 24 hr 08/07/23 06:08 MCV 93.3 MCH 31.2 MCHC 33.4 RDW 14.7 Plt Count 124 L MPV 10.4 Absolute Nucleated RBC 0.000 Nucleated RBC % (auto) 0.0 Anion Gap 14 Estim Creat Clear Calc 60.1 Estimated GFR > 60 Random Glucose 88 Calcium 8.9 Microbiology Microbiology Results: Microbiology 08/05/23 12:08 Blood Culture - Preliminary Blood - Venous Gram negative dontae 08/05/23 Unknown Urine Culture - Final Urine clean catch - Urine baez top Escherichia coli 08/05/23 12:08 Blood Culture - Preliminary Blood - Venous No growth after 24 hours. Assessment and Plan (1) Sepsis secondary to UTI: Status: Acute (2) Chronic atrial fibrillation: Status: Acute Plan Pt is a 78-year-old male with a PMH significant for?persistent AFib on Pradaxa, HFpEF, HTN, hypothyroidism, GERD, BPH, and anxiety who presents to the ED with dysuria, myalgias, and shaking chills. Pt will be admitted to the hospital for treatment and further evaluation of acute UTI with sepsis. UTI with sepsis Myalgias, rigors and dysuria resolved Sepsis resolved WBC trending down Urine and blood culture positive for Gram-negative rods, continue IV ceftriaxone 2 g daily, started 08/05/2023 Follow final cultures, and adjust antibiotics Chronic AFib Initially tachycardic into the 130s, currently rate controlled ,Continue diltiazem, metoprolol, Pradaxa continue cardiac monitoring Chronic kidney disease stage 3 treated with 1 L of IV fluids due to slight bump in creatinine but no acute kidney injury, creatinine at baseline. HFpEF Not in acute exacerbation, resume Lasix , continue Jardiance HLD Continue statin Hypothyroidism Continue levothyroxine BPH Continue tamsulosin GERD PPI Anxiety Continue clonazepam Full Code DVT Prophylaxis: On Pradaxa Pt will require continued inpatient hospitalization for treatment of?acute UTI with sepsis with IV antibiotics waiting for final urine and blood cultures and close monitoring of labs, vitals, and cardiac function. Quality Stroke Does the patient have a stroke diagnosis?: No VTE Prior VTE?: No VTE Risk Level:: Medical - moderate - high VTE Device Contraindication: Treatment Not Indicated VTE Drug Contraindication: N/A - Med Ordered
[2023-08-07] MEDS: Empagliflozin 10 MG TABLET PO (11:53)
[2023-08-07] MEDS: Tamsulosin HCL 0.4 MG CAPSULE PO (20:02)
[2023-08-07] MEDS: Melatonin 3 MG TABLET 6 MG PO (20:03)
[2023-08-07] MEDS: Latanoprost 0.005 % Ophth Sol 2.5 ML DROPS 1 DROP EYE-BOTH (20:52)
[2023-08-08] VITALS (7 sets, daily range): BP systolic 108–131; BP diastolic 72–90; PULSE 78–88; RESP 18–20; TEMP 36.1–36.8; O2SAT 96–100
[2023-08-08] MEDS: cefTRIAXone sodium 2 GM in 0.9 % Sodium Chloride 50 ML IV (02:14)
[2023-08-08] MEDS: Omeprazole 20 MG CAPSULE.DR PO (05:48)
[2023-08-08] MEDS: Levothyroxine Sodium 100 MCG TABLET PO (05:48)
[2023-08-08 06:49] LABS: Hematocrit 38.8 % (42.0-52.0); Hemoglobin 13.7 g/dl (14.0-18.0); Mean Corpuscular HGB Conc 35.3 g/dl (31.0-36.0); Mean Corpuscular Hemoglobin 32.9 pg (27.0-33.0); Mean Corpuscular Volume 93.3 fL (80.0-98.0); Mean Platelet Volume 10.6 fL (9.4-12.4); Platelet Count 144 X10*3/uL (160-400); Red Blood Count 4.16 X10*6/uL (4.60-5.80); Red Cell Distribution Width 14.5 % (11.0-16.0); White Blood Count 7.4 X10*3/uL (4.8-10.8)
[2023-08-08] MEDS: 0.9 % Sodium Chloride Flush 3 ML SYRINGE IVFLUSH (09:14)
[2023-08-08] MEDS: Dabigatran Etexilate Mesylate 150 MG CAPSULE PO ×2 (09:15→20:51)
[2023-08-08] MEDS: Furosemide 40 MG TABLET PO (09:15)
[2023-08-08] MEDS: Atorvastatin Calcium 10 MG TABLET PO (09:15)
[2023-08-08] MEDS: Metoprolol Tartrate 100 MG TABLET PO ×2 (09:15→20:49)
[2023-08-08] MEDS: Metoprolol Tartrate 5 MG/5 ML VIAL IVPUSH (09:33)
--- NOTE | 2023-08-08 09:37 | P.CONCA_ITS ---
History of Present Illness History of Present Illness Date of Service: 08/08/23 Requesting physician: Queenie Lockett Chief complaint: UTI with sepsis, afib Narrative: 78-year-old gentleman with known history of permanent atrial fibrillation for which she follows with Dr. Garay. He has been on Pradaxa, diltiazem 60 mg twice a day and metoprolol tartrate 50 mg twice a day. Presenting with UTI and urosepsis. He is doing well now. Appetite has improved. No symptoms from atrial fibrillation but was noticed to have faster heart rates. No chest pain, shortness of breath or any other concerns right now. [facility] Past Medical History Medical History (Updated 08/05/23 @ 16:53 by JUANA Fernando) Generalized anxiety disorder Hypothyroidism BPH (benign prostatic hyperplasia) Elevated troponin Chronic kidney disease (HFpEF) heart failure with preserved ejection fraction Chronic atrial fibrillation HTN (hypertension) Tricuspid regurgitation Biatrial enlargement Family History Family History Father No problems noted. Mother HTN (hypertension) Surgical History Surgical History Hx of cataract surgery History of esophageal dilatation Hx of inguinal hernia repair History of appendectomy Social History Social History Household Members: Spouse Housing: House Do you presently have visiting nurse or other home services: No Alcohol intake: current Alcohol intake frequency: 0-2 drinks per day Alcohol type: beer and wine Patient Tobacco Use Status: Former Tobacco user Quit Date: 1970 Years Smoked: 10 +/- Smoked in Last 30 Days: No Use of substances other than those prescribed or required for medical reasons: No Currently Displaying Signs/Symptoms of Drug Intoxication Withdrawal: No Have you been hit, kicked, punched, or otherwise hurt by someone within the past year? If so, by whom?: No Do you feel safe in your current relationship?: Yes Is there a partner from a previous relationship who is making you feel unsafe now?: No Are you made to feel afraid or neglected: No [employer] [facility] Practices: episcopalian Advance Directives: Yes Advance Directives Information Provided: No Advance Directives on File: No Advance Directives Date on File: 08/05/23 Do you have a plan to hurt others: No Plan Recently lost weight without trying: No Nutrition Risks: No Nutritional Risk service: No Current occupational status: retired Meds Allergies Allergy/AdvReac Type Severity Reaction Status Date / Time No Known Allergies Allergy Verified 08/05/23 11:46 Active Medications: Current Medications Acetaminophen (Acetaminophen 325 Mg Tablet) 650 mg PO Q6H PRN PRN Reason: Mild pain, fever, or headache Atorvastatin Calcium (Atorvastatin Calcium 10 Mg Tablet) 10 mg PO DAILY [facility] Last Admin: 08/08/23 09:15 Dose: 10 mg Benzonatate (Benzonatate 100 Mg Capsule) 100 mg PO TID PRN PRN Reason: Cough Dabigatran (Dabigatran Etexilate Mesylate 150 Mg Capsule) 150 mg PO BID [facility] Last Admin: 08/08/23 09:15 Dose: 150 mg Docusate Sodium (Docusate Sodium 100 Mg Capsule) 100 mg PO DAILY PRN PRN Reason: Constipation Empagliflozin (Empagliflozin 10 Mg Tablet) 10 mg PO DAILY@1200 [facility] Last Admin: 08/07/23 11:53 Dose: 10 mg Furosemide (Furosemide 40 Mg Tablet) 40 mg PO DAILY [facility]; Protocol Last Admin: 08/08/23 09:15 Dose: 40 mg Ceftriaxone Sodium 2 gm/ (Sodium Chloride) 50 mls @ 100 mls/hr IV Q24H [facility] Last Infusion: 08/08/23 02:44 Dose: Infused Latanoprost (Latanoprost 0.005 % Ophth Amanda 2.5 Ml Drops) 1 drop EYE-BOTH BEDTIME [facility] Last Admin: 08/07/23 20:52 Dose: 1 drop Levothyroxine Sodium (Levothyroxine Sodium 100 Mcg Tablet) 100 mcg PO DAILY@0600 [facility] Last Admin: 08/08/23 05:48 Dose: 100 mcg Melatonin (Melatonin 3 Mg Tablet) 6 mg PO BEDTIME PRN PRN Reason: Insomnia Last Admin: 08/07/23 20:03 Dose: 6 mg Metoprolol Tartrate (Metoprolol Tartrate 100 Mg Tablet) 100 mg PO BID [facility]; Protocol Last Admin: 08/08/23 09:15 Dose: 100 mg Omeprazole (Omeprazole 20 Mg Capsule.Dr) 20 mg PO DAILY@0630 [facility] Last Admin: 08/08/23 05:48 Dose: 20 mg Ondansetron HCl (Ondansetron Hcl 4 Mg/2 Ml Vial) 4 mg IVPUSH Q8H PRN PRN Reason: Nausea and Vomiting Sodium Chloride (0.9 % Sodium Chloride Flush 3 Ml Syringe) 3 ml IVFLUSH QSHIFT [facility] Last Admin: 08/08/23 09:14 Dose: 3 ml Tamsulosin HCl (Tamsulosin Hcl 0.4 Mg Capsule) 0.4 mg PO BEDTIME [facility] Last Admin: 08/07/23 20:02 Dose: 0.4 mg Home Medications ?Medication ?Instructions ?Recorded ?Confirmed ?Last Taken ?Type atorvastatin 10 mg tablet 10 mg PO DAILY 04/05/20 08/05/23 08/05/23 History latanoprost 0.005 % eye drops 1 drp ophthalmic (eye) BEDTIME 04/05/20 08/05/23 08/04/23 History levothyroxine 100 mcg tablet 100 mcg PO DAILY 04/05/20 08/05/23 08/05/23 History omeprazole 20 mg capsule,delayed 20 mg PO DAILY 04/05/20 08/05/23 08/05/23 History release dabigatran etexilate 150 mg 150 mg PO BID 10/07/20 08/05/23 08/05/23 History capsule (Pradaxa) empagliflozin 10 mg tablet 10 mg PO DAILY@1200 08/05/23 08/05/23 08/04/23 History (Jardiance) Physical Exam 2 Vital Signs: Vital Signs: Last Vital Signs Temp 97.6 F 08/08/23 07:51 Pulse 82 08/08/23 09:15 Resp 18 08/08/23 07:51 BP 118/85 08/08/23 09:15 Pulse Ox 97 08/08/23 07:51 O2 Del Method Room Air 08/08/23 07:51 O2 Flow Rate 2 08/05/23 23:19 BMI result Body Mass Index 27.7 GENERAL APPEARANCE: in no acute distress, pleasant. NECK: no carotid bruit, no jugular venous distention. SKIN: no suspicious lesions, warm and dry. HEART: no murmurs, irregular rate and rhythm. LUNGS: clear to auscultation bilaterally. ABDOMEN: soft, nontender. EXTREMITIES: no edema. PERIPHERAL PULSES: equal. NEUROLOGIC: No gross deficits, AAO X 3 Objective Labs and Meds 08/08/23 06:17 08/07/23 06:08 Lab results: Laboratory Results - last 24 hr 08/08/23 06:17 WBC 7.4 RBC 4.16 L Hgb 13.7 L Hct 38.8 L MCV 93.3 MCH 32.9 MCHC 35.3 RDW 14.5 Plt Count 144 L MPV 10.6 Absolute Nucleated RBC 0.000 Nucleated RBC % (auto) 0.0 Assessment and Plan (1) Chronic atrial fibrillation: Status: Acute Plan [age] year gentleman with chronic atrial fibrillation with some poor rate control in the setting of urinary tract infection and sepsis. Clinically he is improving from the infection point of view. Agree with titrating the metoprolol. If heart rate is controlled just by that then he can just be discharged with metoprolol. On the other hand if heart rate still not controlled then diltiazem can be added back and would prefer starting him on a long-acting form of diltiazem 120 mg if BP stable. Thank you for allowing me to participate in the care of your patient. Please feel free to contact me if you have any questions. Procedures Date of Service Date of Service: 08/08/23
[2023-08-08 10:21] LABS: Anion Gap 14 (12-20); Blood Urea Nitrogen 15 mg/dL (9-16); Calcium 9.4 mg/dL (8.4-10.2); Carbon Dioxide 21 mmol/L (22-29); Chloride 106 mmol/L (96-108); Creatinine Clr Calc Pharmacy 62.5; Estimated Glomerular Filt Rate > 60; Glucose Random 113 mg/dL (60-115); Potassium 3.9 mmol/L (3.3-5.1); Sodium 137 mmol/L (135-145)
--- NOTE | 2023-08-08 12:04 | HO.PM.IMPN ---
Subjective Subjective Date of Service: 08/08/23 Interval History: AF with rate as high as 170s this AM, runs of NSVT up to 6 beats no symptoms, though; no dizziness or palpitations fever/rigors resolved Review of Systems Review of Systems: Yes all other systems are reviewed and are negative Physical Exam Vital Signs: Vital Signs: Last Vital Signs Temp 97.6 F 08/08/23 07:51 Pulse 82 08/08/23 09:15 Resp 18 08/08/23 07:51 BP 118/85 08/08/23 09:15 Pulse Ox 97 08/08/23 07:51 O2 Del Method Room Air 08/08/23 07:51 O2 Flow Rate 2 08/05/23 23:19 BMI result Body Mass Index 27.7 Gen: in no acute distress HEENT: sclera anicteric, moist mucus membranes Neck: supple Lungs: clear to auscultation bilaterally Heart: irregular, rapid, no murmurs Abd: soft, non-tender, non-distended Ext: no edema Skin: warm/well-perfused Neuro: alert and oriented x3, no focal findings Psych: appropriate affect Objective Data Active Medications Acetaminophen (Acetaminophen 325 Mg Tablet) 650 mg PO Q6H PRN PRN Reason: Mild pain, fever, or headache Atorvastatin Calcium (Atorvastatin Calcium 10 Mg Tablet) 10 mg PO DAILY [facility] Last Admin: 08/08/23 09:15 Dose: 10 mg Documented By: SANTHOSH Benzonatate (Benzonatate 100 Mg Capsule) 100 mg PO TID PRN PRN Reason: Cough Dabigatran (Dabigatran Etexilate Mesylate 150 Mg Capsule) 150 mg PO BID [facility] Last Admin: 08/08/23 09:15 Dose: 150 mg Documented By: SANTHOSH Docusate Sodium (Docusate Sodium 100 Mg Capsule) 100 mg PO DAILY PRN PRN Reason: Constipation Empagliflozin (Empagliflozin 10 Mg Tablet) 10 mg PO DAILY@1200 [facility] Last Admin: 08/07/23 11:53 Dose: 10 mg Documented By: SANTHOSH Furosemide (Furosemide 40 Mg Tablet) 40 mg PO DAILY [facility]; Protocol Last Admin: 08/08/23 09:15 Dose: 40 mg Documented By: SANTHOSH Ceftriaxone Sodium 2 gm/ (Sodium Chloride) 50 mls @ 100 mls/hr IV Q24H [facility] Last Infusion: 08/08/23 02:44 Dose: Infused Documented By: JANE Latanoprost (Latanoprost 0.005 % Ophth Amanda 2.5 Ml Drops) 1 drop EYE-BOTH BEDTIME [facility] Last Admin: 08/07/23 20:52 Dose: 1 drop Documented By: JANE Levothyroxine Sodium (Levothyroxine Sodium 100 Mcg Tablet) 100 mcg PO DAILY@0600 [facility] Last Admin: 08/08/23 05:48 Dose: 100 mcg Documented By: JANE Melatonin (Melatonin 3 Mg Tablet) 6 mg PO BEDTIME PRN PRN Reason: Insomnia Last Admin: 08/07/23 20:03 Dose: 6 mg Documented By: JANE Metoprolol Tartrate (Metoprolol Tartrate 100 Mg Tablet) 100 mg PO BID [facility]; Protocol Last Admin: 08/08/23 09:15 Dose: 100 mg Documented By: SANTHOSH Omeprazole (Omeprazole 20 Mg Capsule.) 20 mg PO DAILY@0630 [facility] Last Admin: 08/08/23 05:48 Dose: 20 mg Documented By: JANE Ondansetron HCl (Ondansetron Hcl 4 Mg/2 Ml Vial) 4 mg IVPUSH Q8H PRN PRN Reason: Nausea and Vomiting Sodium Chloride (0.9 % Sodium Chloride Flush 3 Ml Syringe) 3 ml IVFLUSH QSHIFT [facility] Last Admin: 08/08/23 09:14 Dose: 3 ml Documented By: SANTHOSH Tamsulosin HCl (Tamsulosin Hcl 0.4 Mg Capsule) 0.4 mg PO BEDTIME [facility] Last Admin: 08/07/23 20:02 Dose: 0.4 mg Documented By: JANE Labs 08/08/23 06:17 08/08/23 09:55 Labs: Laboratory Results - last 24 hr 08/08/23 08/08/23 06:17 09:55 MCV 93.3 MCH 32.9 MCHC 35.3 RDW 14.5 Plt Count 144 L MPV 10.6 Absolute Nucleated RBC 0.000 Nucleated RBC % (auto) 0.0 Anion Gap 14 Estim Creat Clear Calc 62.5 Estimated GFR > 60 Random Glucose 113 Calcium 9.4 Magnesium 2.0 Microbiology Microbiology Results: Microbiology 08/05/23 12:08 Blood Culture - Final Blood - Venous Escherichia coli 08/05/23 12:08 Blood Culture - Preliminary Blood - Venous No growth after 48 hours. Assessment and Plan (1) Sepsis secondary to UTI: Status: Acute (2) Chronic atrial fibrillation: Status: Acute Plan d4 78yo M with persistent AF on dabigatran, HFpEF, HTN, hypothyroidism, GERD, BPH, anxiety presenting with dysuria + rigors, admitted for sepsis due to UTI, found to have bacteremia AF/RVR NSVT - increase metoprolol tartrate PO and will give 1-time IV dose now, d/c diltiazem, monitor on telemetry, consult Cardiology, check TTE - K/Mg normal - continue dabigatran E coli bacteremia/UTI - carpenter-sensitive, on ceftriaxone 2g daily 08/04-, transition to cefuroxime upon discharge, total 14d assuming BCx clears [ordered repeat BCx today] chronic HFpEF - on maintenance furosemide, Jardiance CKD3 - SCr at baseline HLD - continue statin hypothyroidism - continue LT4 BPH - continue tamsulosin GERD - continue PPI anxiety - continue clonazepam VTE ppx - dabigatran dispo - eventually home In my clinical judgment, the patient requires continued inpatient hospitalization for the following reasons: rate control Total time managing care of this patient today: 50 minutes. Quality Stroke Does the patient have a stroke diagnosis?: No VTE Prior VTE?: No VTE Risk Level:: Medical - moderate - high VTE Device Contraindication: Treatment Not Indicated VTE Drug Contraindication: N/A - Med Ordered
[2023-08-08] MEDS: Empagliflozin 10 MG TABLET PO (12:09)
--- NOTE | 2023-08-08 12:54 | PC.NURSE ---
assumed care of patient at 12:50. patient arrived to unit in wheelchair, A/O X4, on room air, all VSS. HR 88 at rest and 118 while ambulating. pt denies any pain or chest discomfort/ flutters/ or palpitations. Pt instructed on how to use call vera system. Pt gait steady denying any dizziness or weakness with ambulation. Patient placed as low fall risk.
[2023-08-08] MEDS: Tamsulosin HCL 0.4 MG CAPSULE PO (20:52)
[2023-08-09] VITALS (10 sets, daily range): BP systolic 113–140; BP diastolic 72–94; PULSE 78–148; RESP 18–20; TEMP 36.1–37.1; O2SAT 95–99
[2023-08-09] MEDS: Omeprazole 20 MG CAPSULE.DR PO (06:07)
[2023-08-09] MEDS: Levothyroxine Sodium 100 MCG TABLET PO (06:07)
[2023-08-09] MEDS: cefTRIAXone sodium 2 GM in 0.9 % Sodium Chloride 50 ML IV (06:11)
--- NOTE | 2023-08-09 07:00 | CA_ITS ---
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 Normal LV ejection fraction 55-60% 2. Biatrial enlargement, right greater than left with severe right atrial enlargement 3. Mild mitral regurgitation trace aortic regurgitation 4. Normal RV systolic pressure 5. Upper limits of normal ascending aortic size 6. No pericardial effusion Findings Left Ventricle Normal left ventricular size and systolic function. There is mildly increased left ventricular wall thickness. The visually estimated ejection fraction is between 55-60%. Diastolic function is indeterminate on the basis of available data. Right Ventricle Mildly increased right ventricular cavity size. There is normal right ventricular systolic function. Atria The left atrium is moderately dilated. There is no evidence of interatrial shunt. The right atrium is severely dilated. Aortic Valve Normal aortic valve structure and function. There is no aortic valve stenosis. There is trace (trivial) aortic valve regurgitation. Mitral Valve There is mild anterior and posterior mitral leaflet thickening. There is mild mitral valve regurgitation. There is no mitral valve stenosis. Pulmonic Valve The pulmonic valve is likely normal. Tricuspid Valve Normal tricuspid valve structure. There is mild tricuspid valve regurgitation. The right ventricular systolic pressure is normal. The right ventricular systolic pressure is 30 mmHg. Normal right atrial pressure. There is no evidence of pulmonary hypertension. Great Vessels All visible segments of the aorta are normal in size. The pulmonary artery was not well visualized. Venous The inferior vena cava is normal in size and collapses greater than 50% with inspiration. Pericardium/Pleural There is no evidence of pericardial effusion. Prior Study Comparison No significant change compared to prior study dated: 10/21/2022. Measurements 2D Linear Measurements IVSd: 1.26 0.6-0.9/0.6-1.0 cm LVIDd: 4.05 3.9-5.3/4.2-5.9 cm LVIDd Index: 2.07 2.4-3.2/2.2-3.1 cm/m2 LVIDs: 2.73 2.0-3.6 cm LVPWd: 1.20 0.7-1.1 cm LA Diam: 4.10 2.7-3.8/3.0-4.0 cm LAIDs Index: 2.09 1.5-2.3 cm/m2 LV Mass: 217.84 67-162/88-224 g LV Mass Index: 111.14 43-95/49-115 g/m2 LVOT Diam: 2.00 3.0+(-)1.3 cm 2D Systolic Function EF 4C: 54.60 >55% EF 2C: 62.20 >55% EF BiP: 58.50 >55% Mitral Valve MV Pk E: 0.91 MV Decel Time: 85.00 E'Lateral: 14.00 E'Medial: 10.60 E/E' Med: 8.60 E/E' Lat: 6.50 PHT: 25.00 MVA PHT: 8.80 Decel [place]: 10.79 Aortic Valve AoV Pk David: 1.02 AoV Mn David: 0.62 AoV VTI: 0.17 AoV Pk Grad: 4.00 Aov Mn Grad: 2.00 ANA Cont.VTI: 2.62 LVOT LVOT Pk David: 0.82 LVOT Mn David: 0.55 LVOT VTI: 0.15 LVOT Pk Grad: 3.00 LVOT Mn Grad: 2.00 LVOT Diam: 2.00 LVOT Area: 3.14 Diastolic Function MV Pk E: 0.91 E'Medial: 10.60 E/E' Med: 8.60 E' Laterial: 14.00 E/E' Lat: 6.50 Right Ventricle TAPSE (mm): 26.70 TVS' David: 10.70 Tricuspid Valve TR Pk David: 2.58 TR Pk Grad: 27.00 RA Press: 3.00 RVSP: 30.00 Great Vessels Aorta Sinus of Valsalva: 3.10 2.0-3.5 cm Ao Asc: 3.60 2.1-3.4 cm Pulmonary Valve PV Pk David: 0.81 Peak PV Grad: 3.00 Updated in Other Vendor System with Status of Final Miguel A Garay MD electronically signed on 08/09/2023 11:07:08 AM with status of Final
[2023-08-09] MEDS: Dabigatran Etexilate Mesylate 150 MG CAPSULE PO ×2 (08:41→21:30)
[2023-08-09] MEDS: Atorvastatin Calcium 10 MG TABLET PO (08:41)
[2023-08-09] MEDS: Furosemide 40 MG TABLET PO (08:42)
[2023-08-09] MEDS: 0.9 % Sodium Chloride Flush 3 ML SYRINGE IVFLUSH ×3 (08:42→21:39)
[2023-08-09] MEDS: Metoprolol Tartrate 100 MG TABLET PO (08:42)
--- NOTE | 2023-08-09 10:30 | PM.PNCARD ---
Subjective Subjective Date of Service: 08/09/23 Principal diagnosis: Atrial fibrillation Interval history: Patient feeling a lot better. Although continues to have atrial fibrillation rapid ventricular response. He was exercising in the room and his heart rate went up to 160 beats per minute. He denies any shortness of breath with his usual activities around the room. However says outside when he does heavier exercises he does get short of breath with exertion. No orthopnea, PND. Is disappointed that he can not go home today Review of Systems Review of Systems Yes all other systems are reviewed and are negative Physical Exam Vital Signs: Last Vital Signs Temp 96.9 F 08/09/23 07:20 Pulse 148 H 08/09/23 09:51 Resp 20 08/09/23 07:20 BP 125/88 08/09/23 07:20 Pulse Ox 99 08/09/23 09:51 O2 Del Method Room Air 08/09/23 07:20 O2 Flow Rate 2 08/05/23 23:19 BMI result Body Mass Index 27.7 GENERAL APPEARANCE: in no acute distress, pleasant. NECK: no carotid bruit, no jugular venous distention. SKIN: no suspicious lesions, warm and dry. HEART: no murmurs, irregular rate and rhythm. LUNGS: clear to auscultation bilaterally. ABDOMEN: soft, nontender. EXTREMITIES: no edema. PERIPHERAL PULSES: equal. NEUROLOGIC: No gross deficits, AAO X 3 Objective Labs and Meds 08/08/23 06:17 08/08/23 09:55 Imaging Radiologist's impression: Impressions Chest X-Ray 08/08/23 11:52 IMPRESSION: No acute cardiopulmonary findings. Progress Note: A&P Assessment and plan (1) Chronic atrial fibrillation: Status: Acute Assessment and Plan: Chronic atrial fibrillation with rapid ventricular response with not adequate rate control. Could be related to his stress related to hospitalization as well as he was exercising significantly. Agree with increasing metoprolol. Continue Cardizem therapy. Continue full oral anticoagulation, currently on Pradaxa. (2) (HFpEF) heart failure with preserved ejection fraction: Status: Acute Assessment and Plan: Heart failure preserved ejection fraction, clinically euvolemic and well compensated. Doing well without any overt heart failure syndrome. Continue current diuretic regimen. Continue Jardiance therapy. Continue rate control as above. Will follow with you Time Spent With Patient Time: Total time managing care of this patient today ____ minutes. Progress Note: Quality Stroke Does the patient have a stroke diagnosis?: No Procedures Date of Service Date of Service: 08/09/23
--- NOTE | 2023-08-09 10:56 | MHC.CM.PN ---
Per ROUNDS discussion, Patient is not yet medically cleared for dc (r/t heart rate control); home is the goal and CM will continue to follow.
--- NOTE | 2023-08-09 11:15 | HO.PM.IMPN ---
Subjective Subjective Date of Service: 08/09/23 Interval History: AF/RVR as high as 160s again this AM with some aberrant beats up to 8 in a row no symptoms with this Review of Systems Review of Systems: Yes all other systems are reviewed and are negative Physical Exam Vital Signs: Vital Signs: Last Vital Signs Temp 96.9 F 08/09/23 07:20 Pulse 148 H 08/09/23 09:51 Resp 20 08/09/23 07:20 BP 125/88 08/09/23 07:20 Pulse Ox 99 08/09/23 09:51 O2 Del Method Room Air 08/09/23 07:20 O2 Flow Rate 2 08/05/23 23:19 BMI result Body Mass Index 27.7 Gen: in no acute distress HEENT: sclera anicteric, moist mucus membranes Neck: supple Lungs: clear to auscultation bilaterally Heart: irregular, rapid, no murmurs Abd: soft, non-tender, non-distended Ext: no edema Skin: warm/well-perfused Neuro: alert and oriented x3, no focal findings Psych: appropriate affect Objective Data Active Medications Acetaminophen (Acetaminophen 325 Mg Tablet) 650 mg PO Q6H PRN PRN Reason: Mild pain, fever, or headache Atorvastatin Calcium (Atorvastatin Calcium 10 Mg Tablet) 10 mg PO DAILY [facility] Last Admin: 08/09/23 08:41 Dose: 10 mg Documented By: MANISHA Benzonatate (Benzonatate 100 Mg Capsule) 100 mg PO TID PRN PRN Reason: Cough Dabigatran (Dabigatran Etexilate Mesylate 150 Mg Capsule) 150 mg PO BID [facility] Last Admin: 08/09/23 08:41 Dose: 150 mg Documented By: MANISHA Diltiazem HCl (Diltiazem Hcl 30 Mg Tablet) 30 mg PO QID [facility]; Protocol Docusate Sodium (Docusate Sodium 100 Mg Capsule) 100 mg PO DAILY PRN PRN Reason: Constipation Empagliflozin (Empagliflozin 10 Mg Tablet) 10 mg PO DAILY@1200 [facility] Last Admin: 08/08/23 12:09 Dose: 10 mg Documented By: DOBROJesse Furosemide (Furosemide 40 Mg Tablet) 40 mg PO DAILY [facility]; Protocol Last Admin: 08/09/23 08:42 Dose: 40 mg Documented By: MANISHA Ceftriaxone Sodium 2 gm/ (Sodium Chloride) 50 mls @ 100 mls/hr IV Q24H [facility] Last Infusion: 08/09/23 06:55 Dose: Infused Documented By: CANDELARIO Latanoprost (Latanoprost 0.005 % Ophth Amanda 2.5 Ml Drops) 1 drop EYE-BOTH BEDTIME [facility] Last Admin: 08/09/23 00:29 Dose: Not Given Documented By: CANDELARIO Non-Admin Reason: Med Not Available Levothyroxine Sodium (Levothyroxine Sodium 100 Mcg Tablet) 100 mcg PO DAILY@0600 [facility] Last Admin: 08/09/23 06:07 Dose: 100 mcg Documented By: CANDELARIO Melatonin (Melatonin 3 Mg Tablet) 6 mg PO BEDTIME PRN PRN Reason: Insomnia Last Admin: 08/07/23 20:03 Dose: 6 mg Documented By: JANE Metoprolol Succinate (Metoprolol Succinate Er 100 Mg Tab.Er.24h) 100 mg PO BID [facility]; Protocol Metoprolol Tartrate (Metoprolol Tartrate 5 Mg/5 Ml Vial) 5 mg IVPUSH ONCE ONE; Protocol Stop: 08/09/23 11:12 Omeprazole (Omeprazole 20 Mg Capsule.Dr) 20 mg PO DAILY@0630 [facility] Last Admin: 08/09/23 06:07 Dose: 20 mg Documented By: CANDELARIO Ondansetron HCl (Ondansetron Hcl 4 Mg/2 Ml Vial) 4 mg IVPUSH Q8H PRN PRN Reason: Nausea and Vomiting Sodium Chloride (0.9 % Sodium Chloride Flush 3 Ml Syringe) 3 ml IVFLUSH QSHIFT [facility] Last Admin: 08/09/23 08:42 Dose: 3 ml Documented By: MANISHA Tamsulosin HCl (Tamsulosin Hcl 0.4 Mg Capsule) 0.4 mg PO BEDTIME [facility] Last Admin: 08/08/23 20:52 Dose: 0.4 mg Documented By: CANDELARIO Labs 08/08/23 06:17 08/08/23 09:55 Microbiology Microbiology Results: Microbiology 08/05/23 12:08 Blood Culture - Final Blood - Venous Escherichia coli Assessment and Plan (1) Sepsis secondary to UTI: Status: Acute (2) Chronic atrial fibrillation: Status: Acute Plan d5 78yo M with persistent AF on dabigatran, HFpEF, HTN, hypothyroidism, GERD, BPH, anxiety presenting with dysuria + rigors, admitted for sepsis due to UTI, found to have bacteremia AF/RVR - change metoprolol tartrate to metoprolol succinate; will also give 1-time IV dose now and resume low-dose diltiazem - Cardiology following, continue telemetry monitoring, TTE pending - K/Mg normal - continue dabigatran - not NSVT; rather, AF with aberrancy given short-long alternating pattern chronic HFpEF - on maintenance furosemide, Jardiance E coli bacteremia/UTI - carpenter-sensitive, on ceftriaxone 2g daily 08/04-, transition to cefuroxime upon discharge, total 14d assuming BCx clears [repeat BCx sent 08/07] CKD3 - SCr at baseline HLD - continue statin hypothyroidism - continue LT4 BPH - continue tamsulosin GERD - continue PPI anxiety - continue clonazepam VTE ppx - dabigatran dispo - eventually home In my clinical judgment, the patient requires continued inpatient hospitalization for the following reasons: rate control Total time managing care of this patient today: 40 minutes. Quality Stroke Does the patient have a stroke diagnosis?: No VTE Prior VTE?: No VTE Risk Level:: Medical - moderate - high VTE Device Contraindication: Treatment Not Indicated VTE Drug Contraindication: N/A - Med Ordered
[2023-08-09] MEDS: Metoprolol Tartrate 5 MG/5 ML VIAL IVPUSH (11:45)
[2023-08-09] MEDS: Empagliflozin 10 MG TABLET PO (11:46)
[2023-08-09] MEDS: dilTIAZem HCL 30 MG TABLET PO ×3 (13:00→21:29)
--- NOTE | 2023-08-09 13:09 | PC.NURSE ---
Cardiac rhythm afib with frequent runs of SVT this am , HR up to 160 with activities this am . Medicated with scheduled Metoprolol 100 mg po in am and Metoprolol 5 mg IV , started on Cardizem 30 mg po and first dose given at 13:00 . HR 85 at rest at this time afib
[2023-08-09] MEDS: Tamsulosin HCL 0.4 MG CAPSULE PO (21:29)
[2023-08-09] MEDS: Metoprolol Succinate ER 100 MG TAB.ER.24H PO (21:30)
[2023-08-10] VITALS: BP 114/72; PULSE 68; RESP 18; TEMP 36.6; O2SAT 97
--- NOTE | 2023-08-10 | ECG_ITS ---
Test Reason : Frequent PVCs Blood Pressure : / mmHG Vent. Rate : 103 BPM Atrial Rate : 000 BPM P-R Int : 000 ms QRS Dur : 074 ms QT Int : 312 ms P-R-T Axes : 000 035 -67 degrees QTc Int : 408 ms Atrial fibrillation with rapid ventricular response Cannot rule out Anterior infarct (cited on or before 03-AUG-2021) Abnormal ECG When compared with ECG of 05-AUG-2023 11:46, Serial changes of Anterior infarct Present Referred By: Manny Murillo Electronically Signed By:ANDREY CASTRO MD
[2023-08-10 03:02] VITALS: BP 122/92; PULSE 72; RESP 20; TEMP 36.6; O2SAT 96
[2023-08-10] MEDS: Magnesium Sulfate/H2O 2 GM/50 ML PIGGYBACK IV (03:14)
[2023-08-10 03:32] LABS: Anion Gap 16 (12-20); Carbon Dioxide 23 mmol/L (22-29); Chloride 105 mmol/L (96-108); Potassium 3.7 mmol/L (3.3-5.1); Sodium 140 mmol/L (135-145)
[2023-08-10] MEDS: Metoprolol Tartrate 5 MG/5 ML VIAL IVPUSH (03:39)
[2023-08-10 03:42] LABS: Troponin-I High Sensitivity 72.1 ng/L (<3.5-35.0)
[2023-08-10 03:43] VITALS: BP 127/94
[2023-08-10] MEDS: Omeprazole 20 MG CAPSULE.DR PO (05:38)
[2023-08-10] MEDS: cefTRIAXone sodium 2 GM in 0.9 % Sodium Chloride 50 ML IV (05:38)
[2023-08-10] MEDS: Levothyroxine Sodium 100 MCG TABLET PO (05:38)
[2023-08-10 07:24] VITALS: BP 114/72; PULSE 64; RESP 20; TEMP 36.6; O2SAT 97
[2023-08-10] MEDS: Dabigatran Etexilate Mesylate 150 MG CAPSULE PO (07:32)
[2023-08-10] MEDS: dilTIAZem HCL 30 MG TABLET PO ×2 (07:32→12:49)
[2023-08-10] MEDS: Metoprolol Succinate ER 100 MG TAB.ER.24H PO (07:32)
[2023-08-10] MEDS: Furosemide 40 MG TABLET PO (07:32)
[2023-08-10] MEDS: Atorvastatin Calcium 10 MG TABLET PO (07:33)
[2023-08-10] MEDS: 0.9 % Sodium Chloride Flush 3 ML SYRINGE IVFLUSH (07:33)
--- NOTE | 2023-08-10 10:43 | PM.PNCARD ---
Subjective Subjective Date of Service: 08/10/23 Principal diagnosis: Atrial fibrillation Interval history: Patient with slightly fast ventricular rate with atrial fibrillation with completely asymptomatic walking the hallways without any chest pain or shortness of breath. No palpitations lightheadedness. Denies orthopnea, PND, chest pain Review of Systems Review of Systems Yes all other systems are reviewed and are negative Physical Exam Vital Signs: Last Vital Signs Temp 97.9 F 08/10/23 07:24 Pulse 64 08/10/23 07:24 Resp 20 08/10/23 07:24 BP 114/72 08/10/23 07:24 Pulse Ox 97 08/10/23 07:24 O2 Del Method Room Air 08/10/23 07:24 O2 Flow Rate 2 08/05/23 23:19 BMI result Body Mass Index 27.7 GENERAL APPEARANCE: in no acute distress, pleasant. NECK: no carotid bruit, no jugular venous distention. SKIN: no suspicious lesions, warm and dry. HEART: no murmurs, irregular rate and rhythm. LUNGS: clear to auscultation bilaterally. ABDOMEN: soft, nontender. EXTREMITIES: no edema. PERIPHERAL PULSES: equal. NEUROLOGIC: No gross deficits, AAO X 3 Objective Labs and Meds 08/08/23 06:17 08/10/23 03:09 Lab results: Laboratory Results - last 24 hr 08/10/23 03:09 Sodium 140 Potassium 3.7 Chloride 105 Carbon Dioxide 23 Anion Gap 16 Magnesium 2.0 Troponin I High Sens 72.1 H Progress Note: A&P Assessment and plan (1) Chronic atrial fibrillation: Status: Acute Assessment and Plan: Chronic atrial fibrillation borderline elevated rate despite increasing metoprolol. He has no symptoms related to it. I think he can be discharged home on metoprolol at current dose along with long-acting Cardizem. Will follow up with Holter monitor as outpatient in 2 weeks. Continue oral anticoagulation with Pradaxa. (2) (HFpEF) heart failure with preserved ejection fraction: Status: Acute Assessment and Plan: No signs or symptoms of heart failure. Continue current medications. Daily weight monitoring avoidance of salt loading. Will follow up in the clinic in 4 weeks time, sooner p.r.n.. Thank you for allowing me to partake in the care Time Spent With Patient Time: Total time managing care of this patient today ____ minutes. Progress Note: Quality Stroke Does the patient have a stroke diagnosis?: No Procedures Date of Service Date of Service: 08/10/23
[2023-08-10 11:08] VITALS: BP 102/67; PULSE 73; RESP 20; TEMP 36.2; O2SAT 98
[2023-08-10] MEDS: Empagliflozin 10 MG TABLET PO (12:49)
--- NOTE | 2023-08-10 13:15 | PM.DS ---
DS: Providers Provider Date of Service: 08/10/23 Date of admission: 08/05/23 16:30 Date of discharge: 08/10/23 Primary care physician: Maykel Levin MD Consults: 08/08/23 08:59 Consult to Cardiology Routine Consulting [place] [facility] [place] [facility] Reason for consultation: nsvt DS: Diagnosis Discharge Diagnosis (1) Chronic atrial fibrillation: Status: Acute (2) (HFpEF) heart failure with preserved ejection fraction: Status: Acute (3) Atrial fibrillation with RVR: Status: Resolved (4) E coli bacteremia: Status: Acute DS: Summary Hospital Course Hospital Course: from admission H+P by hospitalist JUANA Snowden, 08/05/23: Pt is a 78-year-old male with a PMH significant for?persistent AFib on Pradaxa, HFpEF, HTN, hypothyroidism, GERD, BPH, and anxiety who presents to the ED with dysuria, myalgias, and shaking chills. Patient reports experiencing myalgias, arthralgias, painful urination, and foul-smelling urine for the past few days. This morning after breakfast then experienced uncontrollable shaking chills which prompted a telehealth visit with his PCP who suggested coming to the ED for further evaluation. Patient denies chest pain/pressure, palpitations. No shortness of breath. No nausea, vomiting, or abdominal pain. In the ED pt was febrile up to 102.8, tachycardic up to 138, and tachypneic up to 22. Labs were significant for leukocytosis of 11.7 and testing positive for UA, otherwise grossly unremarkable and baseline for patient. Stable H&H. No significant electrolyte abnormalities. Renal function baseline. Lactic acid WNL 2.0 with repeat 1.7. Bilirubin 1.6, chronically elevated around baseline. Tested negative for COVID, RSV, flu. CXR showed no acute intrathoracic disease. EKG demonstrated AFib with RVR of 122 with T-wave inversions in lateral leads. Pt was treated with ceftriaxone, IVF, and acetaminophen. Pt will be admitted to the hospital for treatment and further evaluation of acute UTI with sepsis. 78yo M with persistent AF on dabigatran, CKD3, HFpEF, HTN, hypothyroidism, GERD, BPH, and anxiety presenting with dysuria + rigors, admitted for sepsis due to UTI and ultimately found to have bacteremia. Hospital course by problem: AF/RVR - Had runs of RVR without any symptoms. Also had some aberrancy during these runs. Was given a few doses of IV metoprolol and ultimately changed to metoprolol succinate 100 mg bid; diltiazem 60 mg bid was replaced with 120 mg of 24-hr controlled release once daily. Echocardiogram 08/09/23 showed: 1. Normal LV ejection fraction 55-60% 2. Biatrial enlargement, right greater than left with severe right atrial enlargement 3. Mild mitral regurgitation trace aortic regurgitation 4. Normal RV systolic pressure 5. Upper limits of normal ascending aortic size 6. No pericardial effusion - Cardiology was consulted and will arrange outpatient Holter monitor in 2 weeks and clinic follow-up in 4 weeks. E coli bacteremia/UTI - Carlos-sensitive E. coli from blood and urine cultures. O ceftriaxone 2g daily 08/04-08/09 and transitioned to cefuroxime 500 mg bid upon discharge to take 9 more days until end date of 08/18. Consider outpatient Urology consult regarding his prostate issues, the likely source of the infection. chronic HFpEF - on maintenance furosemide, Jardiance; euvolemic throughout his stay. CKD3 - SCr at baseline of around 1 He was discharged home with instructions to follow up with Primary Care and Cardiology. Time Attestation Discharge Coordination Time (in mins): 35 Quality: Safe Use of Opioids Does Pt have an Active Cancer Diagnosis on the Problem List?: No Quality: Stroke Does the patient have a stroke diagnosis?: No Physical Exam Vital Signs: Vital Signs: Last Vital Signs Temp 97.2 F 08/10/23 11:08 Pulse 73 08/10/23 11:08 Resp 20 08/10/23 11:08 BP 102/67 08/10/23 11:08 Pulse Ox 98 08/10/23 11:08 O2 Del Method Room Air 08/10/23 11:08 O2 Flow Rate 2 08/05/23 23:19 BMI result Body Mass Index 27.7 Gen: in no acute distress HEENT: sclera anicteric, moist mucus membranes Neck: supple Lungs: clear to auscultation bilaterally Heart: irregular, no murmurs Abd: soft, non-tender, non-distended Ext: no edema Skin: warm/well-perfused Neuro: alert and oriented x3, no focal findings Psych: appropriate affect DS: Data Data Completed and Pending Completed studies during hospitalization [Text1]: Laboratory Results WBC 7.4 X10*3/uL (4.8-10.8) 08/08/23 06:17 RBC 4.16 X10*6/uL (4.60-5.80) L 08/08/23 06:17 Hgb 13.7 g/dl (14.0-18.0) L 08/08/23 06:17 Hct 38.8 % (42.0-52.0) L 08/08/23 06:17 MCV 93.3 fL (80.0-98.0) 08/08/23 06:17 MCH 32.9 pg (27.0-33.0) 08/08/23 06:17 MCHC 35.3 g/dl (31.0-36.0) 08/08/23 06:17 RDW 14.5 % (11.0-16.0) 08/08/23 06:17 Plt Count 144 X10*3/uL (160-400) L 08/08/23 06:17 MPV 10.6 fL (9.4-12.4) 08/08/23 06:17 Immature Gran % (Auto) 0.4 % (0.0-0.4) 08/05/23 12:08 Neut % (Auto) 89.4 % (45-73) H 08/05/23 12:08 Lymph % (Auto) 2.7 % (20-40) L 08/05/23 12:08 [place] % (Auto) 7.0 % (2-11) 08/05/23 12:08 Eos % (Auto) 0.1 % (0-4) 08/05/23 12:08 Baso % (Auto) 0.4 % (0-2) 08/05/23 12:08 Lymph # (Auto) 0.3 X10*3/uL (1.2-4.9) L 08/05/23 12:08 [place] # (Auto) 0.8 X10*3/uL (0.1-1.2) 08/05/23 12:08 Eos # (Auto) 0.0 X10*3/uL (0.0-0.4) 08/05/23 12:08 Baso # (Auto) 0.1 X10*3/uL (0.0-0.2) 08/05/23 12:08 Abs Immat Gran (auto) 0.05 X10*3/uL (0.00-0.03) H 08/05/23 12:08 Absolute Neuts (auto) 10.5 x10*3/uL (2.0-8.3) H 08/05/23 12:08 Absolute Nucleated RBC 0.000 X10*3/uL (0.0-0.012) 08/08/23 06:17 Nucleated RBC % (auto) 0.0 /100WBC (0.0-0.2) 08/08/23 06:17 PT 13.8 SEC (11.1-13.3) H 08/05/23 12:08 INR 1.1 (0.9-1.1) 08/05/23 12:08 Sodium 140 mmol/L (135-145) 08/10/23 03:09 Potassium 3.7 mmol/L (3.3-5.1) 08/10/23 03:09 Chloride 105 mmol/L (96-108) 08/10/23 03:09 Carbon Dioxide 23 mmol/L (22-29) 08/10/23 03:09 Anion Gap 16 (12-20) 08/10/23 03:09 BUN 15 mg/dL (9-16) 08/08/23 09:55 Creatinine 1.02 mg/dL (0.5-1.4) 08/08/23 09:55 Estim Creat Clear Calc 62.5 08/08/23 09:55 Estimated GFR > 60 08/08/23 09:55 Random Glucose 113 mg/dL (60-115) 08/08/23 09:55 Lactic Acid 1.7 mmol/L (0.5-2.0) 08/05/23 13:56 Calcium 9.4 mg/dL (8.4-10.2) 08/08/23 09:55 Magnesium 2.0 mg/dL (1.6-2.6) 08/10/23 03:09 Total Bilirubin 1.6 mg/dL (0.0-1.0) H 08/05/23 12:08 AST 19 U/L (5-37) 08/05/23 12:08 ALT 15 U/L (0-40) 08/05/23 12:08 Alkaline Phosphatase 83 U/L (39-117) 08/05/23 12:08 Troponin I High Sens 72.1 ng/L (<3.5-35.0) H 08/10/23 03:09 Total Protein 7.4 g/dL (6.5-8.0) 08/05/23 12:08 Albumin 4.0 g/dL (3.5-5.0) 08/05/23 12:08 Urine Color Yellow 08/05/23 12:18 Urine Appearance Turbid 08/05/23 12:18 Urine pH 5.5 (5.0-9.0) 08/05/23 12:18 Ur Specific [place] 1.015 (1.005-1.025) 08/05/23 12:18 Urine Protein 30 (1+) mg/dL (Neg-Trace) H 08/05/23 12:18 Urine Glucose (UA) >=1000 mg/dL (Negative) H 08/05/23 12:18 Urine Ketones Negative mg/dL (Negative) 08/05/23 12:18 Urine Blood Large (3+) (Negative) H 08/05/23 12:18 Urine Nitrite Positive (Negative) H 08/05/23 12:18 Ur Leukocyte Esterase Large (3+) (Negative) H 08/05/23 12:18 Urine RBC >20 /HPF (0-2) H 08/05/23 12:18 Urine WBC >50 /HPF (0-5) H 08/05/23 12:18 Ur Squamous Epith Cells 0-2 /HPF (0-2) 08/05/23 12:18 Urine Bacteria 4+ (None Seen) 08/05/23 12:18 Hyaline Casts 0-2 /LPF (0-2) 08/05/23 12:18 COVID-19 (JORGE) Negative (Negative) 08/05/23 12:08 COVID-19 Clin Com See Note 08/05/23 12:08 Influenza Type A (JOSIE) Negative (Negative) 08/05/23 12:08 Influenza Type B (JOSIE) Negative (Negative) 08/05/23 12:08 Influenza A & B Note See Note 08/05/23 12:08 Impressions Chest X-Ray 08/08/23 11:52 IMPRESSION: No acute cardiopulmonary findings. Microbiology 08/08/23 09:55 Blood - Venous Blood Culture - Preliminary No growth after 48 hours. 08/08/23 09:58 Blood - Venous Blood Culture - Preliminary No growth after 48 hours. 08/05/23 12:08 Blood - Venous Blood Culture - Final Escherichia coli 08/05/23 12:08 Blood - Venous Blood Culture - Preliminary No growth after 48 hours. 08/05/23 Unknown Urine clean catch - Urine baez top Urine Culture - Final Escherichia coli Labs on day of discharge: Discharge Plan Discharge Anticipated Discharge Date/Time: 08/10/23 13:08 Patient Disposition: Home, Self-Care Discharge Diagnosis: sepsis due to E coli bacteremia/UTI atrial fibrillation with rapid ventricular response Referrals: Maykel Levin MD [Primary Care Provider] - 1 Week Miguel A Garay MD [Physician] - 4 Weeks (Holter monitor in 2 weeks) Discharge Medications: New metoprolol succinate 100 mg Tablet Extended Release 24 Hr 100 mg PO BID Qty: 60 0RF Protocol: Hold for SBP/HR < HOLD for SBP < : 90 HOLD for HR < : 60 cefuroxime axetil 500 mg tablet 500 mg PO BID Qty: 18 0RF diltiazem HCl 120 mg capsule,extended release 24hr 120 mg PO DAILY Qty: 30 0RF Continued furosemide 20 mg tablet 40 mg PO DIRECTED 90 Days Qty: 135 3RF Protocol: Hold for SBP< HOLD for SBP < : 90 tamsulosin 0.4 mg Capsule 0.4 mg PO BEDTIME Qty: 30 0RF Jardiance 10 mg tablet 10 mg PO DAILY@1200 atorvastatin 10 mg tablet 10 mg PO DAILY levothyroxine 100 mcg tablet 100 mcg PO DAILY latanoprost 0.005 % drops 1 drp ophthalmic (eye) BEDTIME omeprazole 20 mg capsule,delayed release(DR/EC) 20 mg PO DAILY Pradaxa 150 mg capsule 150 mg PO BID Discontinued diltiazem HCl 60 mg tablet 60 mg PO BID Qty: 180 3RF metoprolol tartrate 50 mg tablet 50 mg PO BID Qty: 180 3RF Discharge Orders: Discharge Order (Routine); Ordered 08/10/23 Ordered By: Queenie Lockett Diet: Advance to usual diet Activity on Discharge: As tolerated Stand Alone Forms: Patient Portal Discharge page Print Language: Tanzanian Care Plan Goals: recovery from infection control of heart rate Health Concerns: sepsis due to E coli bacteremia/UTI atrial fibrillation with rapid ventricular response Plan of Treatment: take cefuroxime axetil 500 mg twice daily; consider outpatient Urology follow-up to address prostate issues change short-acting diltiazem to 24-hour controlled-release diltiazem 120 mg daily change metoprolol tartrate to metoprolol succinate 100 mg twice daily continue dabigatran [Pradaxa] follow up with Holter monitor in 2 weeks follow up with [place] [facility] [place] 4 [place] Please follow up with your primary care doctor within 1 week. Return to the hospital if you experience recurrent or worsening symptoms. Assessment: See Discharge Summary. Patient Instructions: Cefuroxime (By mouth)
--- NOTE | 2023-08-10 13:42 | MHC.CM.PN ---
Patient has been medically cleared for dc to home today, self care. CM met with Patient at bedside and addressed IMM with him, providing Patient with the original and a copy has been placed on the chart. Patient's Son is transporting home.
== END 2023-08-10 14:58 | disposition home or self-care (01) | DRG 872 ==
LOC: HO.ED 14:15 → HO.EDOVER 16:41 → HO.S3 19:49 → HO.IMC 08-08 12:04
PROVIDERS: Hospitalist; Internal Medicine; Admitting Provider Student in an Organized Health Care Education/Training Program; Emergency Provider Emergency Medicine; PCP Internal Medicine; Visit Provider Family Medicine
DX: A41.9 Sepsis, unspecified organism (principal); I13.0 Hypertensive heart and chronic kidney disease with heart failure and stage 1 through stage 4 chronic kidney disease, or unspecified chronic kidney disease; I50.32 Chronic diastolic (congestive) heart failure; N39.0 Urinary tract infection, site not specified; I48.19 Other persistent atrial fibrillation; I47.20 Ventricular tachycardia, unspecified; B96.20 Unspecified Escherichia coli [E. coli] as the cause of diseases classified elsewhere; E78.5 Hyperlipidemia, unspecified; F41.9 Anxiety disorder, unspecified; K21.9 Gastro-esophageal reflux disease without esophagitis; E03.9 Hypothyroidism, unspecified; N40.0 Benign prostatic hyperplasia without lower urinary tract symptoms; N18.30 Chronic kidney disease, stage 3 unspecified; Z20.822 Contact with and (suspected) exposure to COVID-19; Z87.891 Personal history of nicotine dependence; Z79.890 Hormone replacement therapy; Z79.899 Other long term (current) drug therapy
CPT/HCPCS: 36415; 71045; 71046; 80048; 80051; 80053; 80061; 80076; 81001; 83605; 83735; 84484; 85025; 85027; 85610; 87040; 87077; 87086; 87088; 87186; 87205; 87502; 87635; 92950; 93005; 93306; 97161; 99285; J0696; J3475; Q9957

== ENCOUNTER → 2023-08-05 11:46 | Outpatient (BNV) | payer MEDICARE, SELFPAY | PROVIDERS: Admitting Provider Student in an Organized Health Care Education/Training Program; Emergency Provider Emergency Medicine; PCP Internal Medicine; Visit Provider Internal Medicine Cardiovascular Disease | DX: I48.91 Unspecified atrial fibrillation (principal) | CPT/HCPCS: 93010 ==

== ENCOUNTER 2023-08-05 16:30 | Outpatient (BNV) | payer MEDICARE, SELFPAY | END 2023-08-09 07:00 | PROVIDERS: Admitting Provider Student in an Organized Health Care Education/Training Program; Emergency Provider Emergency Medicine; PCP Internal Medicine; Visit Provider Internal Medicine Cardiovascular Disease | DX: I34.0 Nonrheumatic mitral (valve) insufficiency (principal); I36.1 Nonrheumatic tricuspid (valve) insufficiency | CPT/HCPCS: 93306 ==

== ENCOUNTER 2023-08-05 16:30 | Outpatient (BNV) | payer MEDICARE, SELFPAY | END 2023-08-10 02:31 | PROVIDERS: Admitting Provider Student in an Organized Health Care Education/Training Program; Emergency Provider Emergency Medicine; PCP Internal Medicine; Visit Provider Internal Medicine Cardiovascular Disease | DX: I48.91 Unspecified atrial fibrillation (principal) | CPT/HCPCS: 93010 ==

== ENCOUNTER → 2023-08-05 16:30 | Outpatient (BNV) | payer MEDICARE, SELFPAY | PROVIDERS: Admitting Provider Student in an Organized Health Care Education/Training Program; Emergency Provider Emergency Medicine; PCP Internal Medicine; Visit Provider Internal Medicine Cardiovascular Disease | DX: I48.20 Chronic atrial fibrillation, unspecified (principal); I50.30 Unspecified diastolic (congestive) heart failure | CPT/HCPCS: 99222; 99233 ==

== ENCOUNTER → 2023-08-05 16:30 | Outpatient (BNV) | payer MEDICARE, SELFPAY | PROVIDERS: Admitting Provider Student in an Organized Health Care Education/Training Program; Emergency Provider Emergency Medicine; PCP Internal Medicine; Visit Provider Student in an Organized Health Care Education/Training Program | DX: A41.9 Sepsis, unspecified organism (principal); N39.0 Urinary tract infection, site not specified; I48.20 Chronic atrial fibrillation, unspecified | CPT/HCPCS: 99223; 99232; 99233; 99239 ==

== ENCOUNTER → 2023-08-19 13:30 | Outpatient (REF) | payer MEDICARE, SELFPAY ==
--- NOTE | 2023-08-19 13:33 | HM_ITS ---
* Total monitoring time 3 days. * Underlying rhythm is atrial fibrillation with an average rate of 81/Min. * Rare ventricular ectopy. * No significant pauses. * No patient markers. * No symptoms mentioned in diary. States 'feeling good'. MTDD
== END ==
LOC: HO.CARD 13:30
PROVIDERS: PCP Internal Medicine; Visit Provider Internal Medicine Cardiovascular Disease
DX: I48.20 Chronic atrial fibrillation, unspecified (principal)
CPT/HCPCS: 93242

== ENCOUNTER → 2023-08-19 13:33 | Outpatient (BNV) | payer MEDICARE, SELFPAY | PROVIDERS: PCP Internal Medicine; Visit Provider Internal Medicine | DX: I48.91 Unspecified atrial fibrillation (principal) | CPT/HCPCS: 93244 ==

== ENCOUNTER 2023-09-06 11:46 | Outpatient (REF) | payer MEDICARE, SELFPAY ==
[2023-09-06 12:55] LABS: Appearance Urine Clear; Color Urine Yellow; Glucose Urine UA >=1000 mg/dL (Negative); Leukocyte Esterase Urine Negative (Negative); Nitrite Urine Negative (Negative); Specific Gravity - Urine 1.015 (1.005-1.025); UMIC TRIGGER UA YES; Urine Blood Negative (Negative); Urine Ketones Negative (Negative); Urine Protein Negative (Neg-Trace)
[2023-09-06 13:27] LABS: Bacteria Urine None Seen (None Seen); Hyaline Casts Urine 0-2 /LPF (0-2); RBC Urine 0-2 /HPF (0-2); Squamous Epithelial Cell Urine 0-2 /HPF (0-2); WBC Urine 0-5 /HPF (0-5)
== END 2023-09-06 11:47 | disposition home or self-care (01) ==
LOC: HO.LNP 11:46
PROVIDERS: Family Medicine; Visit Provider Internal Medicine
DX: Z00.00 Encounter for general adult medical examination without abnormal findings (principal); N39.0 Urinary tract infection, site not specified; A41.9 Sepsis, unspecified organism
CPT/HCPCS: 81001; 81003; 87086

== ENCOUNTER 2023-09-14 13:56 | Outpatient (AMB) | payer MEDICARE, SELFPAY ==
[2023-09-14 14:18] VITALS: BP 110/68; PULSE 66; BMI 25.1
--- NOTE | 2023-09-14 14:18 | A.OFFVIS_ITS ---
Vital Signs 09/14/23 14:18 Height 5 ft 9 in Weight 169 lb 12.095 oz BMI 25.1 BP 110/68 Blood Pressure Location Lt brachial Position Sitting Pulse 66 Intake Visit Reasons: 4 week follow-up [facility] [place] Intake Note: 4 week follow-up [facility] [place] feeling good Spiral Winder Required: No Allergies No Known Allergies Allergy (Verified 08/05/23 11:46) Medication List - Last Reconciled 09/14/23 by Miguel A Garay MD atorvastatin 10 mg PO DAILY dabigatran etexilate (Pradaxa) 150 mg PO BID diltiazem HCl CD 120 mg PO DAILY 90 days empagliflozin (Jardiance) 10 mg PO DAILY@1200 furosemide 40 mg PO DAILY latanoprost 0.005% 1 drp ophthalmic (eye) BEDTIME levothyroxine 100 mcg PO DAILY metoprolol succinate ER 100 mg See Protocol PO BID 90 days omeprazole 20 mg PO DAILY tamsulosin 0.4 mg PO BEDTIME HPI Comments Details: Dirk comes for follow-up after recent hospitalization for urosepsis and subsequently had difficulty in maintaining his rate. He was switch to higher dose of metoprolol and Cardizem therapy. Since then he had a Holter monitor which shows excellent rate control. He said he has been doing a lot better since his hospitalization. He has been starting to exercise more including biking and walking. He does not have much increased symptoms of shortness of breath. He said he has been losing weight since been on Jardiance and current diuretic therapy. His weight has remained overall stable. He denies any orthopnea, PND, leg edema, abdominal distension. Denies any prolonged palpitation irregular heartbeat. Denies any lightheadedness, syncope. No exertional chest pain. No major bleeding issues or neurologic events. [facility] Medical History Generalized anxiety disorder Hypothyroidism BPH (benign prostatic hyperplasia) Elevated troponin Chronic kidney disease (HFpEF) heart failure with preserved ejection fraction Chronic atrial fibrillation HTN (hypertension) Tricuspid regurgitation Biatrial enlargement Surgical History Hx of cataract surgery History of esophageal dilatation Hx of inguinal hernia repair History of appendectomy Family History Father No problems noted. Mother HTN (hypertension) Social History Household Members: Spouse Housing: House Do you presently have visiting nurse or other home services: No Alcohol intake: current Alcohol intake frequency: 0-2 drinks per day Alcohol type: beer and wine Patient Tobacco Use Status: Former Tobacco user Years Smoked: 10 +/- Advance Directives Date on File: 08/05/23 service: No Current occupational status: retired Review of Systems Const Denies chills, Denies fatigue, Denies fever(s), Denies frequent falls, Denies weakness, Denies weight gain and Denies weight loss ENT Denies dizziness Card Denies chest pain, Denies leg edema, Denies lightheadedness, Denies palpitations, Denies dyspnea, Denies dyspnea on exertion, Denies orthopnea and Denies other (loss of consciousness) Resp Denies cough, Denies dyspnea and Denies dyspnea on exertion GI Denies hematochezia and Denies change in stool character Musc Denies abnormal gait, Denies muscle weakness, Denies numbness, Denies radiating pain into limb and Denies tingling Neuro Denies abnormal gait, Denies dizziness, Denies frequent falls, Denies numbness, Denies tingling and Denies weakness Endo Denies fatigue and Denies palpitations Physical Exam Vital Signs: Last Vital Signs Pulse 66 09/14/23 14:18 BP 110/68 09/14/23 14:18 BMI result Body Mass Index 25.1 Last Vital Signs Temp 97.3 F 08/09/21 11:39 Pulse 101 H 08/09/21 11:39 Resp 18 08/09/21 11:39 BP 120/87 08/09/21 11:39 Pulse Ox 95 08/09/21 11:39 BMI result Body Mass Index 28.2 Const General: cooperative, comfortable, no acute distress, alert, awake, Physically active and well groomed Nutritional Appearance: overweight Orientation/consciousness: patient oriented x3 Neck Neck: Yes trachea midline and Yes no JVD Resp Effort & Inspection: normal respiratory effort Auscultation: clear to auscultation bilaterally and diminished lung sounds Cardio Jugular venous distension: no JVD Rhythm: abnormal rhythm irregularly irregular Heart sounds: S1 normal heart sound present, S2 normal heart sound present, no click, no gallops and no murmurs GI Auscultation: normal bowel sounds Skin General skin exam: no rashes or lesions noted Neuro General: patient oriented x3 and no focal motor deficits Extrem General: Yes no clubbing, cyanosis or edema Office Procedures EKG Details: EKG shows atrial fibrillation with heart rate of 66 beats per minute [id number], Complete Assessment & Plan Assessment & Plan (1) Chronic atrial fibrillation: Code(s): I48.20 - Chronic atrial fibrillation, unspecified Category: Medical Plan: Chronic and rate control atrial fibrillation dual therapy with metoprolol as well as Cardizem therapy. Doing extremely well with good rate control at this point time. Symptomatically he is doing well as well. Continue full oral anticoagulation, has been on long-term dabigatran therapy. Continue the same. Semi annual renal function test should be pursued. (2) (HFpEF) heart failure with preserved ejection fraction: Code(s): I50.30 - Unspecified diastolic (congestive) heart failure Category: Medical Plan: Heart failure preserved ejection fraction secondary to chronic atrial fibrillati on. Clinically doing well with rate control approach and current diuretic regimen. Continue neurohormonal modulation with Jardiance as well. Heart failure management was discussed in details. Daily weight monitoring avoidance of salt loading was discussed. Additional diuretics as need be. Continue current rate control strategy. Continue maintain activity level as tolerated. Will follow up in the clinic in 6 months time, sooner p.r.n.. Thank you for allowing me to partake in his care Medications: New furosemide 40 mg PO DAILY 120 tabs 3RF Coding Level of Care Code Est Pt Level 4 (67787) Diagnoses Chronic atrial fibrillation I48.20 (HFpEF) heart failure with preserved ejection fraction I50.30 CPT Codes EKG - CPT: 09924-[id number], Complete ([id number])
== END 2023-09-14 14:46 | disposition home or self-care (01) ==
PROVIDERS: PCP Internal Medicine; Visit Provider Internal Medicine Cardiovascular Disease
DX: I48.20 Chronic atrial fibrillation, unspecified (principal); I50.30 Unspecified diastolic (congestive) heart failure
CPT/HCPCS: 93010; 99214

== ENCOUNTER → 2023-09-14 13:56 | Outpatient (BNVA) | payer MEDICARE, SELFPAY | PROVIDERS: PCP Internal Medicine; Visit Provider Internal Medicine Cardiovascular Disease | DX: I48.20 Chronic atrial fibrillation, unspecified (principal); I50.30 Unspecified diastolic (congestive) heart failure; Z79.01 Long term (current) use of anticoagulants; Z79.899 Other long term (current) drug therapy | CPT/HCPCS: 93005; 99212 ==

== ENCOUNTER 2023-11-11 08:57 | Outpatient (REF) | payer MEDICARE, SELFPAY ==
--- NOTE | ~2023-11-11 | XR_ITS ---
EXAMINATION: XR CHEST CLINICAL INFORMATION: Pneumonia COMPARISON: Radiograph from 08/08/2023 TECHNIQUE: 2 views of the chest were obtained. FINDINGS: Left basilar atelectasis. No pneumothorax. Trachea is midline. Cardiac mediastinal silhouette is stable. No large pleural effusion. Dextrocurvature of the mid to lower thoracic spine with anterior bridging osteophytes of the thoracolumbar spine. Soft tissues are unremarkable. XR/XR chest 2V IMPRESSION: Left basilar atelectasis.
[2023-11-11 11:19] LABS: Appearance Urine Clear; Color Urine Yellow; Glucose Urine UA >=1000 mg/dL (Negative); Leukocyte Esterase Urine Negative (Negative); Nitrite Urine Negative (Negative); UMIC TRIGGER UA YES; Urine Blood Negative (Negative); Urine Ketones Negative (Negative); Urine Protein Negative (Neg-Trace)
[2023-11-11 11:23] LABS: Bacteria Urine None Seen (None Seen); Hyaline Casts Urine 0-2 /LPF (0-2); RBC Urine 0-2 /HPF (0-2); Squamous Epithelial Cell Urine 0-2 /HPF (0-2); WBC Urine 0-5 /HPF (0-5)
[2023-11-11 11:41] LABS: Anion Gap 14 (12-20); Blood Urea Nitrogen 14 mg/dL (9-16); Calcium 10.3 mg/dL (8.4-10.2); Carbon Dioxide 25 mmol/L (22-29); Chloride 103 mmol/L (96-108); Estimated Glomerular Filt Rate 50; Glucose Random 166 mg/dL (60-115); Potassium 3.8 mmol/L (3.3-5.1); Sodium 138 mmol/L (135-145)
[2023-11-11 12:00] LABS: B Type Natriuretic Peptide 167 pg/mL (<100)
== END 2023-11-11 08:58 | disposition home or self-care (01) ==
LOC: HO.WFDLDS 08:57
PROVIDERS: Absent Provider Physician Assistant; PCP Internal Medicine; Referring Provider Family Medicine; Visit Provider Nurse Practitioner
DX: I50.30 Unspecified diastolic (congestive) heart failure (principal); J18.9 Pneumonia, unspecified organism; R06.2 Wheezing
CPT/HCPCS: 36415; 71046; 80048; 81001; 83880

== ENCOUNTER 2023-11-11 09:19 | Outpatient (AMB) | payer MEDICARE, SELFPAY ==
--- NOTE | 2023-11-11 09:14 | MHC.OFFWIV ---
Intake Vital Signs 11/11/23 09:15 Height 5 ft 9 in Weight 174 lb BMI 25.7 BP 108/70 Blood Pressure Location Rt brachial Position Sitting Respiration 16 Pulse 88 Pulse Source Pulse Oximeter Temp 98.3 F Temp Source Oral Pulse Oximetry (%) 97 Oxygen Delivery Method Room Air Intake Visit Reasons: Persistent cough Intake Note: Persistent cough for two weeks, wheezing. Patient Tobacco Use Status: Former Tobacco user Allergies No Known Allergies Allergy (Verified 11/11/23 09:14) Medication List - Last Reconciled 11/11/23 by Magaly Joyce PA-C atorvastatin 10 mg PO DAILY dabigatran etexilate (Pradaxa) 150 mg PO BID diltiazem HCl CD 120 mg PO DAILY 90 days empagliflozin (Jardiance) 10 mg PO DAILY@1200 furosemide 40 mg PO DAILY latanoprost 0.005% 1 drp ophthalmic (eye) BEDTIME levothyroxine 100 mcg PO DAILY metoprolol succinate ER 100 mg See Protocol PO BID 90 days omeprazole 20 mg PO DAILY tamsulosin 0.4 mg PO BEDTIME HPI Persistent cough HPI Details Patient is a 78-year-old male with a significant past medical history of chronic AFib, heart failure with a preserved ejection fraction, tricuspid regurg, hyperlipidemia, hypertension , hypothyroidism and GERD presenting today to the walk-in clinic with complaints of a cough. He states his cough started 2 weeks ago and he has been coughing and wheezing. He states it felt like a summer cold initially with some sinus congestion, runny nose and mild sore throat. He has not noticed any fever or chills. He has been using albuterol 3-6 x a day with temporary relief. No hx of asthma or COPD. He states his pcp gave it to him for a previous bronchitis. He recently returned home from a trip from the [facility] and states that 2.5 weeks ago when his symptoms started his tested positive for COVID. He did not test himself. His weight is stable. His legs are not swollen. Blood pressure today in the office is 108/70 PFSH Medical History Generalized anxiety disorder Hypothyroidism BPH (benign prostatic hyperplasia) Elevated troponin Chronic kidney disease (HFpEF) heart failure with preserved ejection fraction Chronic atrial fibrillation HTN (hypertension) Tricuspid regurgitation Biatrial enlargement Surgical History Hx of cataract surgery History of esophageal dilatation Hx of inguinal hernia repair History of appendectomy Family History Father No problems noted. Mother HTN (hypertension) Social History Household Members: Spouse Housing: House Do you presently have visiting nurse or other home services: No Alcohol intake: current Alcohol intake frequency: 0-2 drinks per day Alcohol type: beer and wine Patient Tobacco Use Status: Former Tobacco user Years Smoked: 10 +/- Advance Directives Date on File: 08/05/23 service: No Current occupational status: retired Physical Exam Const Orientation/consciousness: patient oriented x3 HEENT Ears: hearing grossly normal bilaterally and TM's normal bilaterally General nose exam: Normal nasal mucous membranes and turbinates present Face and sinus: Yes sinuses nontender Throat: Yes posterior oropharynx normal Neck Thyroid: Thyroid normal Lymphatic: no lymphadenopathy noted Resp Auscultation: rhonchi left upper, right upper, left lower and upper bilaterally Cardio Rate: regular rate Rhythm: abnormal rhythm irregularly irregular GI Inspection: Yes normal to inspection Palpation (GI): Soft to palpation and Other GI palpation findings present (nontender, no cva tenderness) Auscultation: normoactive bowel sounds Skin General skin exam: no rashes or lesions noted Neuro General: patient oriented x3, gait normal and no focal motor deficits Extrem General: Yes normal to inspection and Yes no clubbing, cyanosis or edema Assessment & Plan Assessment & Plan (1) Lung infection: Code(s): J18.9 - Pneumonia, unspecified organism Plan: Advised to complete a chest x-ray today. We will follow up pending test results. I will start patient on doxycycline. Discussed risks and benefits and adverse effects of this medication including a photosensitivity rash and GI upset. (2) Wheezing: Code(s): R06.2 - Wheezing Plan: We will start on prednisone. We did review the risks and benefits and adverse effects including palpitations, GI upset, mood changes. advised to take with food and in the morning and let us know if any intolerances occur. Plan short term follow up with pcp 2-4 weeks or sooner if needed. pt understands and agrees with the plan. Orders: Orders XR chest 2V Today J18.9 - Pneumonia, unspecified organism, R06.2 - Wheezing Medications: New prednisone take 3 tab po x 3 days, take 2 tab po x 3 days, take 1 tab po x 3 days; 18 tabs 0RF doxycycline hyclate 100 mg PO BID 20 tabs 0RF Coding Level of Care Code Est Pt Level 4 (37338) Diagnoses Lung infection J18.9 Wheezing R06.2
[2023-11-11 09:15] VITALS: BP 108/70; PULSE 88; RESP 16; TEMP 36.8; O2SAT 97; BMI 25.7
== END 2023-11-11 09:33 | disposition home or self-care (01) ==
PROVIDERS: PCP Internal Medicine; Visit Provider Physician Assistant
DX: J18.9 Pneumonia, unspecified organism (principal); R06.2 Wheezing
CPT/HCPCS: 99214

== ENCOUNTER 2024-02-02 08:40 | Outpatient (REF) | payer MEDICARE, SELFPAY ==
[2024-02-02 11:21] LABS: MANUAL DIFF FLAG NO
[2024-02-02 11:31] LABS: Basophils Percent Auto 0.6 % (0-2); Eosinophils Absolute Auto 0.2 X10*3/uL (0.0-0.4); Eosinophils Percent Auto 4.4 % (0-4); Hematocrit 47.5 % (42.0-52.0); Hemoglobin 15.9 g/dl (14.0-18.0); Imm Gran Abs Auto 0.02 X10*3/uL (0.00-0.03); Imm Gran Pct Auto 0.4 % (0.0-0.4); Lymphocytes Absolute Auto 0.8 X10*3/uL (1.2-4.9); Lymphocytes Percent Auto 15.8 % (20-40); Mean Corpuscular HGB Conc 33.5 g/dl (31.0-36.0); Mean Corpuscular Volume 95.6 fL (80.0-98.0); Mean Platelet Volume 10.9 fL (9.4-12.4); Monocytes Absolute Auto 0.8 X10*3/uL (0.1-1.2); Monocytes Percent Auto 15.3 % (2-11); Neutrophils Absolute Auto 3.3 x10*3/uL (2.0-8.3); Neutrophils Percent Auto 63.5 % (45-73); Platelet Count 149 X10*3/uL (160-400); Red Blood Count 4.97 X10*6/uL (4.60-5.80); Red Cell Distribution Width 14.1 % (11.0-16.0); White Blood Count 5.2 X10*3/uL (4.8-10.8)
[2024-02-02 11:32] LABS: Appearance Urine Clear; Color Urine Yellow; Glucose Urine UA >=1000 mg/dL (Negative); Leukocyte Esterase Urine Negative (Negative); Nitrite Urine Negative (Negative); Specific Gravity - Urine 1.015 (1.005-1.025); UMIC TRIGGER UACC YES; Urine Blood Negative (Negative); Urine Ketones Negative (Negative); Urine Protein Negative (Neg-Trace)
[2024-02-02 11:43] LABS: Bacteria Urine None Seen (None Seen); Hyaline Casts Urine 0-2 /LPF (0-2); RBC Urine 0-2 /HPF (0-2); Squamous Epithelial Cell Urine 0-2 /HPF (0-2); WBC Urine 0-5 /HPF (0-5)
[2024-02-02 12:24] LABS: PSA,Total (Free>4and<10) 3.22 ng/mL (0.00-4.00)
[2024-02-02 12:42] LABS: Alanine Aminotransferase 18 U/L (0-40); Alkaline Phosphatase 66 U/L (39-117); Anion Gap 13 (12-20); Aspartate Amino Transferase 25 U/L (5-37); Bilirubin Total 1.5 mg/dL (0.0-1.0); Blood Urea Nitrogen 14 mg/dL (9-16); Calcium 9.7 mg/dL (8.4-10.2); Carbon Dioxide 25 mmol/L (22-29); Chloride 105 mmol/L (96-108); Cholesterol 162 mg/dL (<200); Estimated Glomerular Filt Rate 60; Glucose Fasting 104 mg/dL (60-99); HDL Cholesterol 58 mg/dL (>40); LDL Cholesterol Calculated 89 mg/dL (<100); Potassium 4.3 mmol/L (3.3-5.1); Sodium 139 mmol/L (135-145); Thyroid Stimulating Hormone 0.77 uIU/mL (0.32-4.0); Total Protein 6.7 g/dL (6.5-8.0); Triglycerides 77 mg/dL (<150)
== END 2024-02-02 08:41 | disposition home or self-care (01) ==
LOC: HO.WFDLDS 08:40
PROVIDERS: Visit Provider Internal Medicine
DX: Z00.00 Encounter for general adult medical examination without abnormal findings (principal); E03.9 Hypothyroidism, unspecified; E83.52 Hypercalcemia; N40.0 Benign prostatic hyperplasia without lower urinary tract symptoms; I50.31 Acute diastolic (congestive) heart failure; I11.0 Hypertensive heart disease with heart failure; I50.33 Acute on chronic diastolic (congestive) heart failure; Z12.5 Encounter for screening for malignant neoplasm of prostate
CPT/HCPCS: 36415; 80053; 80061; 81001; 84153; 84443; 85025

== ENCOUNTER 2024-02-08 11:05 | Outpatient (AMB) | payer MEDICARE, SELFPAY ==
[2024-02-08 11:13] VITALS: BP 106/60; PULSE 73; BMI 26.4
--- NOTE | 2024-02-08 11:13 | MHC.OFFVIS ---
Vital Signs 02/08/24 11:13 Height 5 ft 9 in Weight 178 lb 9.191 oz BMI 26.4 BP 106/60 Blood Pressure Location Lt brachial Position Sitting Pulse 73 Pulse Source Pulse Oximeter Intake Visit Reasons: 6 mth fu Intake Note: 6 mth f/up Package Crimper Required: No Accompanied by: Self / Same As Patient Allergies No Known Allergies Allergy (Verified 11/11/23 09:14) Medication List - Last Reconciled 02/08/24 by Miguel A Garay MD atorvastatin 10 mg PO DAILY dabigatran etexilate (Pradaxa) 150 mg PO BID diltiazem HCl CD 120 mg PO DAILY doxycycline hyclate 100 mg PO BID empagliflozin (Jardiance) 10 mg PO DAILY@1200 finasteride 5 mg PO DAILY furosemide 40 mg PO DAILY latanoprost 0.005% 1 drp ophthalmic (eye) BEDTIME levothyroxine 100 mcg PO DAILY metoprolol succinate ER 100 mg See Protocol PO BID 90 days omeprazole 20 mg PO DAILY tamsulosin 0.4 mg PO BEDTIME HPI Comments Details: Dirk comes for follow-up. He has been doing very well from cardiac perspective. He is maintaining good level of activity and has no worsening symptoms of shortness of breath. No orthopnea, PND, leg edema. Takes all his medications. No bleeding issues or neurologic events. No orthopnea, PND, leg edema. No lightheadedness, syncope. No exertional chest pain. [facility] Medical History Generalized anxiety disorder Hypothyroidism BPH (benign prostatic hyperplasia) Elevated troponin Chronic kidney disease (HFpEF) heart failure with preserved ejection fraction Chronic atrial fibrillation HTN (hypertension) Tricuspid regurgitation Biatrial enlargement Surgical History Hx of cataract surgery History of esophageal dilatation Hx of inguinal hernia repair History of appendectomy Family History Father No problems noted. Mother HTN (hypertension) Social History Household Members: Spouse Housing: House Do you presently have visiting nurse or other home services: No Alcohol intake: current Alcohol intake frequency: 0-2 drinks per day Alcohol type: beer and wine Patient Tobacco Use Status: Former Tobacco user Years Smoked: 10 +/- Advance Directives Date on File: 08/05/23 service: No Current occupational status: retired Review of Systems Const Denies chills, Denies fatigue, Denies fever(s), Denies frequent falls, Denies weakness, Denies weight gain and Denies weight loss ENT Denies dizziness Card Denies chest pain, Denies leg edema, Denies lightheadedness, Denies palpitations, Denies dyspnea and Denies dyspnea on exertion Resp Denies cough, Denies dyspnea and Denies dyspnea on exertion GI Denies hematochezia Musc Denies abnormal gait, Denies muscle weakness, Denies numbness, Denies radiating pain into limb and Denies tingling Neuro Denies abnormal gait, Denies dizziness, Denies frequent falls, Denies numbness, Denies tingling and Denies weakness Endo Denies fatigue and Denies palpitations Physical Exam Vital Signs: Last Vital Signs Pulse 73 02/08/24 11:13 BP 106/60 02/08/24 11:13 BMI result Body Mass Index 26.4 Last Vital Signs Temp 97.3 F 08/09/21 11:39 Pulse 101 H 08/09/21 11:39 Resp 18 08/09/21 11:39 BP 120/87 08/09/21 11:39 Pulse Ox 95 08/09/21 11:39 BMI result Body Mass Index 28.2 Const General: cooperative, comfortable, no acute distress, alert, awake, Physically active and well groomed Nutritional Appearance: overweight Orientation/consciousness: patient oriented x3 Neck Neck: Yes trachea midline and Yes no JVD Resp Effort & Inspection: normal respiratory effort Auscultation: clear to auscultation bilaterally and diminished lung sounds Cardio Jugular venous distension: no JVD Rhythm: abnormal rhythm irregularly irregular Heart sounds: S1 normal heart sound present, S2 normal heart sound present, no click, no gallops and no murmurs GI Auscultation: normal bowel sounds Skin General skin exam: no rashes or lesions noted Neuro General: patient oriented x3 and no focal motor deficits Extrem General: Yes no clubbing, cyanosis or edema Assessment & Plan Assessment & Plan (1) (HFpEF) heart failure with preserved ejection fraction: Code(s): I50.30 - Unspecified diastolic (congestive) heart failure Category: Medical Plan: Heart failure preserved ejection fraction, clinically euvolemic and well compensated current diuretic dose. Continue neurohormonal modulation with Jardiance which has helped him significantly. Daily weight monitoring avoidance of salt loading was discussed. Continue aggressive rate control approach as currently. Additional diuretics as needed. Encouraged to maintain activity level as tolerated. (2) Chronic atrial fibrillation: Code(s): I48.20 - Chronic atrial fibrillation, unspecified Category: Medical Plan: Chronic longstanding atrial fibrillation. Continue current rate control with Cardizem as well as metoprolol therapy. Importance of good rate control was discussed. 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 Continue full oral anticoagulation has been on dabigatran for a long time. Continue quarterly to semi annual renal function test. Will follow up in the clinic in 6 months time after an echocardiogram. Thank you for allowing me to partake in his care Orders: Orders CA echo transthoracic complete 6 Months I50.30 - Unspecified diastolic (congestive) heart failure Coding Level of Care Code Est Pt Level 4 (46185) Diagnoses (HFpEF) heart failure with preserved ejection fraction I50.30 Chronic atrial fibrillation I48.20
== END 2024-02-08 11:46 | disposition home or self-care (01) ==
PROVIDERS: PCP Internal Medicine; Visit Provider Internal Medicine Cardiovascular Disease
DX: I50.30 Unspecified diastolic (congestive) heart failure (principal); I48.20 Chronic atrial fibrillation, unspecified
CPT/HCPCS: 99214

== ENCOUNTER → 2024-02-08 11:05 | Outpatient (BNVA) | payer MEDICARE, SELFPAY | PROVIDERS: PCP Internal Medicine; Visit Provider Internal Medicine Cardiovascular Disease | DX: I50.30 Unspecified diastolic (congestive) heart failure (principal); I48.20 Chronic atrial fibrillation, unspecified | CPT/HCPCS: 99212 ==

== ENCOUNTER 2024-08-01 08:59 | Outpatient (REF) | payer MEDICARE, SELFPAY ==
--- OUTSIDE RECORDS SUMMARY | 2024-08-01 09:39 | XMS_ITS ---
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 Mission Support Name Role Phone Maykel Levin [facility] [...] Location Date Provider Diagnosis Maykel Levin MD [address] [place] [address] [address] [place], [place] [id number] 02/08/2024 Maykel Levin Essential hypertensi on I10 [...] Up: 6 Months, Reason: Provider Name:Maykel stewart, 08/07/2024 09:00:00 AM, [address] [facility], [address], [place], [place], [phone], Provider Name:Maykel Jason ier, 02/05/2025 07:15:00 AM, [address] [facility], [address], [place], [phone], Provider Name:Maykel Jason ier, 02/12/2025 09:30:00 AM, [address] [facility], [address], [place], [place], [phone], Progress Notes * Madan OLIVEIRA JDOB :1945 (79 yo M)Acc No.[id number]:02/08/2024 Progress Notes Patient:?Charlene Oliveira Provider:?Maykel Levin MD :1945???Age:79 Y???Sex:Male Randy e:02/08/2024 Address:[address] [place], [place] [id number] Subjective: * Chief Complaints: * ???ANNUAL EXAM * HPI: ???Depression Screening:?PHQ-9?Little interest or pleasure in doing things?Not at all,?Feeling down, depressed, or hopeless?Not at all,?Trouble falling or staying asleep, or sleeping too much?Not at all,?Feeling tired or having little energy?Not at all,?Poor appetite or overeating?Not at all,?Feeling bad about yourself or that you are a failure, or have let yourself or your family down?Not at all,?Trouble concentrating on things, such as reading the newspaper or watching television?Not at all,?Moving or speaking so slowly that other people could have noticed; or the opposite, being so fidgety or restless that you have been moving around a lot more than usual?Not at all,?Thoughts that you would be better off or of hurting yourself in some way?Not at all,?Total Score?0.?Interpretation and Intervention?Depression Screening Findings?Negative,?Follow-Up for Depression?: review of PHQ-9 found negative result, no follow-up needed.?Communication Needs:?Communication Needs?Does the patient have a hearing impairment?No,?Does the patient have a vision impairment??Yes,?If yes, what is the vision impairment??Glasses,?Does the patient have a cognition impairment??No.?Fall Risk:?History?Have you had any falls with injury in the past year??No,?Have you had two or more falls in the past year??No.?SDOH Questions:?SDOH Questions?In the past year have you been worried about losing housing??No,?In the past year have you or any family members you live with been unable to get any of the following when it was really needed? Check all that apply:?None.?Symptom(s):? patient is a 79 yo male here for yearly evaluation with review of recent labs and follow up of chronic issues. * ROS:?General/Constitutional:?Patient denies?fatigue , headache.?Change in appetite?denies.?Chills?denies.?Fever?denies.?Ophthalmologic:?Blurred vision?denies.?Discharge?denies.?Pain?denies.?ENT:?Patient denies?decreased sense of smell , any loss of taste , sore throat.?Decreased hearing?denies.?Sore throat?denies.?Swollen glands?denies.?Endocrine:?Cold intolerance?denies.?Excessive thirst?denies.?Heat intolerance?denies.?Weight loss?denies.?Respiratory:?Cough?denies.?Shortness of breath at rest?denies.?Shortness of breath with exertion?denies.?Wheezing?denies.?Cardiovascular:?Chest pain at rest?denies.?Chest pain with exertion?denies.?Irregular heartbeat?denies.?Shortness of breath?denies.?Gastrointestinal:?Abdominal pain?denies.?Change in bowel habits?denies.?Diarrhea?denies.?Nausea?denies.?Rectal bleeding?denies.?Vomiting?denies .?Genitourinary:?Blood in urine?denies.?Difficulty urinating?denies.?Frequent urination?denies.?Musculoskeletal:?Patient denies?muscle aches.?Painful joints?denies.?Weakness?denies.?Peripheral Vascular:?Patient denies?red and blue toes.?Skin:?Dry skin?denies.?Itching?denies.?Denies?Mole(s),? changes in moles, new moles or any lesions of concern.?Denies?Photosensitivity.?Rash?denies.?Neurologic:?Dizziness?denies.?Fainting?denies.?Headache?denies.? * Medical History:? * Surgical History:? * Hospitalization/Major Diagno stic Procedure:? * Family History:?Father: dece ased 87 yrs, family history unknown .?Mother: 65 yrs, family history unknown .?1 son(s) , 1 daughter(s) - healthy. .? 1 brother father - ? Mother- ?, Denies mental health/substance abuse family history, Denies mental health/substance abuse family history, No pertinent family medical history. * Social History:?Tobacco Use:?Tobacco Use/Smoking?Patient is a?former smoker,?Additional Findings: Tobacco Non-User?Former smoker, currently using no form of tobacco.?Drugs/Alcohol:?Alcohol Screen?Did you have a drink containing alcohol in the past year??Yes,?How often did you have a drink containing alcohol in the past year??Monthly or less (1 point),?How many drinks did you have on a typical day when you were drinking in the past year??1 or 2 drinks (0 point),?How often did you have 6 or more drinks on one occasion in the past year??Never (0 point),?Points?1,?Interpretation?Negative.?Miscellaneous:?Caffeine: yes, frequency:, 1-2 cups per day. Children: yes. no Community involvements. Exercise: yes, weights and rowing machine. Home smoke detector use: yes. Housing: owning. Living with: spouse. Marital status: . Occupation: works part-time. Pets: none. Travel outside of the [place]: yes, [facility]. ???08-21-11 Patient states smokes an occasional cigar. * Medications:?TakingFinasteri de 5 MG Tablet 1 tablet Orally Once [...] reviewed and reconciled with the patient * Allergies:?N.K.D.A.yes[Aller gies Verified] Objective: * Vitals:?Ht: 66, Wt:182, BMI: 29.37, BP:114/86 weight is up 8 pounds since 08-19-23. * ???Past Orders: ???Lab:Complete Blood Count Auto Diff (Order Date - 02/01/2024) (Collection Date - 02/02/2024) ? Value Reference Range ?White Blood Count 5.2 4. 8-10.8 - X10*3/uL ?Red Blood Count 4.97 4.60 -5.80 - X10*6/uL ?Hemoglobin 15.9 14.0-18.0 - g/dl ?Hematocrit 47.5 42.0-52.0 - % ?Mean Corpuscular Volume 95.6 80.0-98.0 - fL ?Mean Corpuscular Hemoglobin 32.0 27.0-33.0 - pg ?Mean Corpuscular HGB Conc 33.5 31.0-36.0 - g/dl ?Red Cell Distribution Width 14.1 11.0-16.0 - % ?Platelet Count 149 L 160-4 00 - X10*3/uL ?Mean Platelet Volume 10.9 9.4-12.4 - fL ?Neutrophils Percent Auto 63.5 45-73 - % ?Imm Gran Pct Auto 0.4 0. 0-0.4 - % ?Lymphocytes Percent Auto 15.8 L 20-40 - % ?Monocytes Percent Auto 15.3 H 2-11 - % ?Eosinophils Percent Auto 4.4 H 0-4 - % ?Basophils Percent Auto 0.6 0-2 - % ?NRBC Pct Auto 0.0 0.0-0. 2 - /100WBC ?Neutrophils Absolute Auto 3.3 2.0-8.3 - x10*3/uL ?Imm Gran Abs Auto 0.02 0. 00-0.03 - X10*3/uL ?Lymphocytes Absolute Auto 0.8 L 1.2-4.9 - X10*3/uL ?Monocytes Absolute Auto 0.8 0.1-1.2 - X10*3/uL ?Eosinophils Absolute Auto 0.2 0.0-0.4 - X10*3/uL ?Basophils Absolute Auto 0.0 0.0-0.2 - X10*3/uL ?NRBC Abs Auto 0.000 0.0-0. 012 - X10*3/uL ???Lab:Comprehensive [place]. P tia Fast (Order Date - 02/01/2024) (Collection Date - 02/02/2024) ? Value Reference Range ?Sodium 139 135-145 - mmo l/L ?Bilirubin Total 1.5 H 0.0- 1.0 - mg/dL ?Aspartate Amino Transferase 25 5-37 - U/L ?Alanine Aminotransferase 18 0-40 - U/L ?Total Protein 6.7 6.5-8. 0 - g/dL ?Albumin Level 4.0 3.5-5. 0 - g/dL ?Alkaline Phosphatase 66 39-117 - U/L ?Potassium 4.3 3.3-5.1 - mmol/L ?Chloride 105 96-108 - mm ol/L ?Carbon Dioxide 25 22-29 - mmol/L ?Anion Gap 13 12-20 - ?Blood Urea Nitrogen 14 9-16 - mg/dL ?Creatinine 1.18 0.5-1.4 - mg/dL ?Estimated Glomerular Filt Rate 60 - ?Glucose Fasting 104 H 60-9 9 - mg/dL ?Calcium 9.7 8.4-10.2 - m g/dL ???Lab:Lipid Panel (Order Da te - 02/01/2024) (Collection Date - 02/02/2024) ? Value Reference Range ?Triglycerides 77 <150 - mg/dL ?Cholesterol 162 <200 - m g/dL ?LDL Cholesterol Calculated 89 <100 - mg/dL ?HDL Cholesterol 58 >40 - mg/dL ???Lab:PSA,Total (Free>4and< 10) (Order Date - 02/01/2024) (Collection Date - 02/02/2024) ? Value Reference Range ?PSA,Total (Free>4and<10) 3.22 0.00-4.00 - ng/mL ???Lab:UA ClnCatch+Micro w/r flx Cult (Order Date - 02/01/2024) (Collection Date - 02/02/2024) ? Value Reference Range ?Color Urine Yellow - ?Appearance Urine Clear - ?PH 6.0 5.0-9.0 - ?Glucose Urine UA >=1000 A Neg ative - mg/dL ?Urine Blood Negative Negative - ?Specific [place] - Urine 1.015 1.005-1.025 - ?Urine Protein Negative Neg-Tr shruti - mg/dL ?Urine Ketones Negative Negati ve - mg/dL ?Nitrite Urine Negative Negati ve - ?Leukocyte Esterase Urine Negative Negative - ?RBC Urine 0-2 0-2 - /HPF ?WBC Urine 0-5 0-5 - /HPF ?Squamous Epithelial Cell Urine 0-2 0-2 - /HPF ?Bacteria Urine None Seen None Seen - ?Hyaline Casts Urine 0-2 0-2 - /LPF ???Lab:Thyroid Stimulating H ernesto (Order Date - 02/02/2024) (Collection Date - 02/02/2024) ? Value Reference Range ?Thyroid Stimulating Hormone 0.77 0.32-4.0 - uIU/mL * Examination: ???General Examination: ?GENERAL APPEARANCE:?well developed, well nourished, in no acute distress.?HEAD:?normocephalic, atraumatic.?EYES:?pupils equal, round, reactive to light and accommodation, sclera non-icteric.?EARS:?normal.?ORAL CAVITY:?mucosa moist.?THROAT:?clear.?NECK/THYROID:?neck supple, full range of motion, no cervical lymphadenopathy, no bruits.?SKIN:?warm and dry, no suspicious lesions.?HEART:?regular rate and rhythm, S1, S2 normal, no murmurs.?LUNGS:?clear to auscultation bilaterally.?ABDOMEN:?soft, nontender, nondistended, bowel sounds present, normal, no organomegaly , no masses palpable.?RECTAL EXAM:?normal tone, no external hemorrhoids, no masses palpable, prostate normal, stool guaiac negative.?MALE GENITOURINARY:?circumcised , no penile lesions or discharge , no testicular mass , testes descended bilaterally.?EXTREMITIES:?no clubbing, cyanosis, or edema.?NEUROLOGIC:?nonfocal, motor strength normal upper and lower extremities, sensory exam intact.? Assessment: * Assessment: 1.?Encounter for general shivani lt medical examination without abnormal findings - Z00.00 (Primary)?2.?Essential hypertension - I10?3.?Prostatism - N40.0?4.?Acute diastolic congestive heart failure - I50.31?5.?Acquired hypothyroidism - E03.9?6.?Pure hypercholesterolemia - E78.00?7.?Chronic atrial fibrillation - I48.20? Plan: * Treatment: 2.?Essential hypertension? Continue Metoprolol Succinate ER Tablet Extended Release 24 Hour, 100 MG, 1 tablet, Orally, Once a day;?Continue dilTIAZem HCl Tablet, 120 MG, as directed, Orally, qd.?? Notes: well controlled, will continue current regiment?? 3.?Prostatism? Continue Tamsulosin HCl Capsule, 0.4 MG, TAKE 1 CAPSULE BY MOUTH EVERY DAY.?? Notes: doing well. being followed by urology, will contnue current regiment?? 4.?Acute diastolic congestiv e heart failure? Continue Furosemide Tablet, 40 MG, alternating 40mg and 20mg, Orally.?? Notes: doing well on meds. will continue current regiment?? 5.?Acquired hypothyroidism? Notes: stable, will continue current regiment?? 6.?Pure hypercholesterolemia ? Continue Atorvastatin Calcium Tablet, 10 MG, TAKE 1 TABLET 1 TIME DAILY, Orally, Once a day.?? Notes: stable, will continue current regiment?? 7.?Chronic atrial fibrillati on? Continue Pradaxa Capsule, 150 MG, 1 capsule, Orally, Twice a day.?? 8.?Others? Refill Levoxyl Tablet, 100 MCG, take 1 tablet every morning on an empty stomach, Orally, Once a day, 90 days, 90, Refills 4.?? * Procedure Codes:? * Preventive Medicine:? ??CHF Care Plan:?Patient Lifestyle Goals?Relieve symptoms and improve quality of life.?Treatment Goals?Take medicine exactly as directed and plan for RX refills.?Barriers ?No Specific barriers.?Self-Managment Goals?Monitor your symptoms daily.? * Follow Up:?6 Months * * Sign off status: Completed true * Provider:?Maykel Levin MD Date:?1 04/09/2023 Generated for Wilmer salazar/Tequila/eTflorentinosmitting on:?08/01/2024 09:39 AM EDT History and Physical Notes * HPI [...] patient have a vision impairmen t?: Yes ?If yes, what is the vision impairment?: Glasses Does the patient have a cognition impair ment?: No Examination Category Sub-Category Detail Notes Category Not es General Examination GENERAL APPEARANCE: well dev eloped, well nourished, in no acute distress HEAD: normocephalic, atrau matic EYES: pupils equal, round, reactive to light and accommodation, sclera non- icteric EARS: normal THROAT: clear NECK/THYROID: neck supple, [...]
--- OUTSIDE RECORDS SUMMARY | 2024-08-01 09:39 | XMS_ITS | Continuity of Care Document ---
Author Name [facility] Organization [facility] Care Team Providers Care Android Programmer Name Role Phone [facility] Unavailable Unavailable Problems Combined list of problems from Department of Defense and Veterans Affairs facilities. It does not include entries that were removed or entered in error. Problem Status Onset Date Problem Type Date of Resolution Comments Source Atrial fibrillation Active Condition [facility] Benign Prostatic Hypertrophy with Outflow Obstruction ([facility] [id number]) Active Condition [facility] BP - High blood pressure Active Condition [facility] CHF - Congestive Heart Failure ([facility] [id number]) Active Condition [facility] Diastolic heart failure stage A Active Condition [facility] Erectile dysfunction Active Condition [facility] Osteoarthritis of right knee joint Active Condition [facility] Seen in community anticoagulation clinic Active Condition [facility] Diagnosis: ICD-10-CM N40.1 Benign prostatic hyperplasia with lower urinary tract symp Active Diagnosis [facility] Diagnosis: ICD-10-CM Z79.01 intermission 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 Medication Details Route Status Patient Instructions Prescription Expires Prescription Number Last Dispense Date Ordering Provider Order Date Order Qty Source ATORVASTATI N CA 20MG TAB TAKE ONE-HALF TABLET BY MOUTH DAILY ORAL ACTIVE Britney GANDARA spring IELD DABIGATRAN ETEXILATE 150MG CAP,ORAL TAKE ONE CAPSULE BY MOUTH EVERY TWELVE HOURS FOR ATRIAL FIBRILLA TION [facility] REMOTE RX: [id number] KEEP IN ORIGINAL CONTAINE R ORAL DISCONT INUED BY PROVIDE R 06/18/2024 [id number] ESTELLE VERMA I 2024 60 [facility] DABIGATRAN ETEXILATE 150MG CAP,ORAL TAKE ONE CAPSULE BY MOUTH EVERY 12 HOURS (ONCE OPENED, THE MEDICATI ON MUST BE USED WITHIN 4 MONTHS) ORAL 07/02/2024 [id number] ALYSON STINSON 2023 180 [facility] DILTIAZEM HCL 60MG 12HR CAP,SA TAKE 1 CAPSULE BY MOUTH TWICE DAILY ORAL ACTIVE ALYSON STINSON 2021 [facility] EMPAGLIFLOZ IN 10MG TAB TAKE ONE TABLET BY MOUTH ONCE DAILY FOR DIABETES ORAL ACTIVE 09/17/2024 [id number] 5 ALYSON STINSON 2023 90 [facility] EMPAGLIFLOZ IN 10MG TAB TAKE ONE TABLET BY MOUTH ONCE DAILY FOR DIABETES ORAL DISCONT INUED 07/28/2023 [id number] ALYSON STINSON 2022 90 [facility] FINASTERIDE 5MG TAB TAKE ONE TABLET BY MOUTH ONCE DAILY ORAL ACTIVE ALYSON STINSON 2023 [facility] FUROSEMIDE 40MG TAB TAKE ONE TABLET BY MOUTH ONCE DAILY ORAL ACTIVE ALYSON STINSON 2021 [facility] LATANOPROST 0.005% SOLN,OPH INSTILL 1 DROP INTO EACH EYE AT BEDTIME OPHTHA LMIC ACTIVE Britney GANDARA spring IELD LEVOTHYROXI NE NA 100MCG TAB (SYNTHROID) TAKE ONE TABLET BY MOUTH EVERY MORNING 30 MINUTES BEFORE BREAKFAS T ORAL ACTIVE Britney GANDARA 2016 IELD METOPROLOL TARTRATE 100MG TAB TAKE ONE TABLET BY MOUTH TWICE DAILY ORAL ACTIVE ALYSON STINSON 2023 [facility] OMEPRAZOLE 20MG CAP,EC TAKE 1 CAPSULE BY MOUTH EVERY MORNING 30 MINUTES BEFORE BREAKFAS T ORAL ACTIVE Britney GANDARA 2016 [facility] IELD SILDENAFIL CITRATE 100MG TAB TAKE ONE TABLET BY MOUTH ONCE DAILY NEEDED TAKE 1 HOUR PRIOR TO SEXUAL ACTIVITY ORAL 11/03/2023 [id number] ALYSON STINSON 2022 6 [facility] TAMSULOSIN HCL 0.4MG CAP TAKE 1 CAPSULE BY MOUTH AT BEDTIME ORAL ACTIVE [facility] STINSON [facility] TERAZOSIN HCL 5MG CAP TAKE 1 CAPSULE BY MOUTH ONCE DAILY ORAL ACTIVE [facility] STINSON [facility] Immunizations Combined list of available immunizations from the Department of Defense and Veterans Affairs facilities. Immunization Series Date Given Administered By Site Reaction Lot Number CVX Code Drug Boiler Attendant Status Comments Source COVID-19 (MODERNA), MRNA, LNP-S, PF, 100 MCG/0.5 ML DOSE 2 2020 207 complet ed MOD; [id number]; 1 [facility] COVID-19 (MODERNA), MRNA, LNP-S, PF, 100 MCG/0.5 ML DOSE 1 2020 207 complet ed MOD; [id number]; 1 [facility] INFLUENZA, UNSPECIFIED FORMULATION 2019 88 complet ed [facility] INFLUENZA, SEASONAL, INJECTABLE 2018 141 complet ed [facility] INFLUENZA, SEASONAL, INJECTABLE 2017 141 complet ed [facility] TDAP 2017 115 complet ed [facility] [place] [facility] INFLUENZA, SEASONAL, INJECTABLE 2016 141 [facility] PNEUMOCOCCAL CONJUGATE PCV 13 2015 133 complet ed YES [facility] [place] [facility] PNEUMOCOCCAL POLYSACCHARID E PPV23 2013 33 complet ed [facility] [facility] [facility] ZOSTER LIVE 2011 121 complet ed YES [facility] [place] [facility] Results Combined list of recent chemistry, hematology and other laboratory results from Department of Defense and Veterans Affairs, ranging from 15 months to all on record, depending upon the facility. Order Name Results Value Reference Range Date Interpretation Specimen Comments Source BASIC METABOLIC PANEL (non-fast ing) UREA NITROGEN [MASS/VOLUM E] IN SERUM OR PLASMA 22 mg/dL 7 - 25 09/08 Specimen Type: SERUM No comment entered. Ordering Provider: LAMONTE STINSON Report Released Date/Time: Sep 01, 2023 03:23 PM Reporting Lab: [address] [address] Performing Lab: [address] [address] [facility] BASIC METABOLIC PANEL (non-fast ing) GLUCOSE [MASS/VOLUM E] IN SERUM OR PLASMA 120 mg/dL 65 - 100 09/08 H Specimen Type: SERUM No comment entered. Ordering Provider: LAMONTE STINSON Report Released Date/Time: Sep 01, 2023 03:23 PM Reporting Lab: [facility] [address] Performing Lab: [facility] [address] [facility] [address] [facility] TS [facility] BASIC METABOLIC PANEL (non-fast ing) SODIUM [MOLES/VOLU ME] IN SERUM OR PLASMA 137 mmol/L 135 - 145 09/08 Specimen Type: SERUM No comment entered. Ordering Provider: LAMONTE STINSON Report Released Date/Time: Sep 01, 2023 03:23 PM Reporting Lab: [address] [address] Performing Lab: [facility]USE[facility] [address] [facility] [address] [facility] BASIC METABOLIC PANEL (non-fast ing) POTASSIUM [MOLES/VOLU ME] IN SERUM OR PLASMA 4.1 mmol/L 3.5 - 5.0 09/08 Specimen Type: SERUM No comment entered. Ordering Provider: LAMONTE STINSON Report Released Date/Time: Sep 01, 2023 03:23 PM Reporting Lab: [facility]ENTERUSEG[facility] [address] [facility] [address] Performing Lab: [facility] [address] [facility] [address] [facility] BASIC METABOLIC PANEL (non-fast ing) CHLORIDE [MOLES/VOLU ME] IN SERUM OR PLASMA 102 mmol/L 100 - 110 09/08 Specimen Type: SERUM No comment entered. Ordering Provider: LAMONTE STINSON Report Released Date/Time: Sep 01, 2023 03:23 PM Reporting Lab: [facility] [address] [facility] [address] Performing Lab: [facility] [address] [facility] [address] [facility] BASIC METABOLIC PANEL (non-fast ing) CARBON DIOXIDE, TOTAL [MOLES/VOLU ME] IN SERUM OR PLASMA 25 meq/L 20 - 30 09/08 Specimen Type: SERUM No comment entered. Ordering Provider: LAMONTE STINSON Report Released Date/Time: Sep 01, 2023 03:23 PM Reporting Lab: [facility]N [facility]ENTERUSE[facility] [address] [facility] [address] Performing Lab: [facility]N [facility]ENTERUSE[facility] [address] [facility] [address] [facility] BASIC METABOLIC PANEL (non-fast ing) CREATININE [MASS/VOLUM E] IN SERUM OR PLASMA 1.46 mg/dL 0.50 - 1.40 09/08 H Specimen Type: SERUM No comment entered. Ordering Provider: LAMONTE STINSON Report Released Date/Time: Sep 01, 2023 03:23 PM Reporting Lab: [facility] [place] [facility] [address] [facility] [address] Performing Lab: [facility] [place] [facility] [address] [facility] [address] [facility] [facility] BASIC METABOLIC PANEL (non-fast ing) GLOMERULAR FILTRATION RATE/1.73 SQ M.PREDICTED [VOLUME RATE/AREA] IN SERUM, PLASMA OR BLOOD BY CREATININE- BASED FORMULA (CKD-EPI 2020) 49 mL/min 60 09/08 L Specimen Type: SERUM No comment entered. Ordering Provider: LAMONTE STINSON Report Released Date/Time: Sep 01, 2023 03:23 PM Reporting Lab: [facility] [place] [facility] [address] [facility] [address] Performing Lab: [facility] [place] [facility] [address] [facility] [address] [facility] [facility] CBC LEUKOCYTES [#/VOLUME] IN BLOOD BY AUTOMATED COUNT 6.93 10*3/u L 4.50 - 11.00 09/08 Specimen Type: BLOOD No comment entered. Ordering Provider: LAMONTE STINSON Report Released Date/Time: Sep 01, 2023 03:23 PM Reporting Lab: [facility] [place] [address] [address] Performing Lab: [facility] [place] [facility] [address] [facility] [address] [facility] [place] [facility] CBC ERYTHROCYTE S [#/VOLUME] IN BLOOD BY AUTOMATED COUNT 5.22 10*6/u L 4.23 - 5.66 09/08 Specimen Type: BLOOD No comment entered. Ordering Provider: LAMONTE STINSON Report Released Date/Time: Sep 01, 2023 03:23 PM Reporting Lab: [facility] [place] [address] [address] Performing Lab: [facility] [place] [address] [address] [facility] [place] [facility] CBC HEMOGLOBIN [MASS/VOLUM E] IN BLOOD 16.1 g/dL 12.8 - 17 09/08 Specimen Type: BLOOD No comment entered. Ordering Provider: LAMONTE STINSON Report Released Date/Time: Sep 01, 2023 03:23 PM Reporting Lab: [facility] [place] [facility] [address] [facility] [address] Performing Lab: [facility] [place] [facility] [address] [facility] [address] [facility] [place] [facility] CBC HEMATOCRIT [VOLUME FRACTION] OF BLOOD BY AUTOMATED COUNT 47.8 39.2 - 50.4 09/08 Specimen Type: BLOOD No comment entered. Ordering Provider: LAMONTE STINSON Report Released Date/Time: Sep 01, 2023 03:23 PM Reporting Lab: [facility] [place] [address] [address] Performing Lab: [facility] [place] [facility] [address] [facility] [address] [facility] [place] [facility] CBC MCV [ENTITIC VOLUME] BY AUTOMATED COUNT 91.6 fL 82 - 99 09/08 Specimen Type: BLOOD No comment entered. Ordering Provider: LAMONTE STINSON Report Released Date/Time: Sep 01, 2023 03:23 PM Reporting Lab: [facility] [place] [address] [address] Performing Lab: [facility] [place] [address] [address] [facility] [place] [facility] CBC MCHC [MASS/VOLUM E] BY AUTOMATED COUNT 33.7 g/dL 30.8 - 35.1 09/08 Specimen Type: BLOOD No comment entered. Ordering Provider: LAMONTE STINSON Report Released Date/Time: Sep 01, 2023 03:23 PM Reporting Lab: [facility] [place] [address] [address] Performing Lab: [facility] [place] [facility] [address] [facility] [address] [facility] [place] [facility] CBC PLATELETS [#/VOLUME] IN BLOOD BY AUTOMATED COUNT 189 10*3/u L 140 - 360 09/08 Specimen Type: BLOOD No comment entered. Ordering Provider: LAMONTE STINSON Report Released Date/Time: Sep 01, 2023 03:23 PM Reporting Lab: [facility] [place] [facility] [address] [facility] [address] Performing Lab: [facility] [place] [facility] [address] [facility] [address] [facility] [place] [facility] CBC ERYTHROCYTE DISTRIBUTIO N WIDTH [RATIO] BY AUTOMATED COUNT 14.1 12.0 - 16.0 09/08 Specimen Type: BLOOD No comment entered. Ordering Provider: LAMONTE STINSON Report Released Date/Time: Sep 01, 2023 03:23 PM Reporting Lab: [facility] [place] [facility] [address] [facility] [address] Performing Lab: [facility] [place] [facility] [address] [facility] [address] [facility] [place] [facility] CBC MCH [ENTITIC MASS] BY AUTOMATED COUNT 30.8 pg 26.2 - 32.6 09/08 Specimen Type: BLOOD No comment entered. Ordering Provider: LAMONTE STINSON Report Released Date/Time: Sep 01, 2023 03:23 PM Reporting Lab: [facility] [place] [facility] [address] [facility] [address] Performing Lab: [facility] [place] [address] [address] [facility] [place] [facility] LIPID PANEL, NON FASTING CHOLESTEROL [MASS/VOLUM E] IN SERUM OR PLASMA 183 mg/dL 09/08 Specimen Type: SERUM No comment entered. Ordering Provider: LAMONTE STINSON Report Released Date/Time: Sep 01, 2023 03:23 PM Reporting Lab: [facility] [place] [facility] [address] [facility] [address] Performing Lab: [facility]PITALTRN [facility]ENTERUSEG[facility] [address] [facility] [address] [facility]ENTERUSE [facility] LIPID PANEL, NON FASTING TRIGLYCERID E [MASS/VOLUM E] IN SERUM OR PLASMA 76 mg/dL 0 - 150 09/08 Specimen Type: SERUM No comment entered. Ordering Provider: LAMONTE STINSON Report Released Date/Time: Sep 01, 2023 03:23 PM Reporting Lab: [facility] HOSPITALTRN [facility]ENTERUSEG[facility]RI[facility] [address] [facility] [address] Performing Lab: [facility] [address] [facility] [address] [facility] LIPID PANEL, NON FASTING CHOLESTEROL IN LDL [MASS/VOLUM E] IN SERUM OR PLASMA BY CALCULATION 107 mg/dL 0 - 129 09/08 Specimen Type: SERUM No comment entered. Ordering Provider: LAMONTE STINSON Report Released Date/Time: Sep 01, 2023 03:23 PM Reporting Lab: [facility]ENTERUSEG[facility] [address] [facility] [address] Performing Lab: [facility]ENTERUSEG[facility] [address] [facility] [address] [facility] LIPID PANEL, NON FASTING CHOLESTEROL .TOTAL/CHOL ESTEROL IN HDL [MASS RATIO] IN SERUM OR PLASMA 3.0 09/08 Specimen Type: SERUM No comment entered. Ordering Provider: LAMONTE STINSON Report Released Date/Time: Sep 01, 2023 03:23 PM Reporting Lab: [facility] HOSPITALTRN [facility]ENTERUSEG[facility] [address] [facility] [address] Performing Lab: [facility]ENTERUSEG[facility]RI[facility] [address] [facility] [address] [facility] LIPID PANEL, NON FASTING CHOLESTEROL IN HDL [MASS/VOLUM E] IN SERUM OR PLASMA 61 mg/dL 40 - 60 09/08 H Specimen Type: SERUM No comment entered. Ordering Provider: LAMONTE STINSON Report Released Date/Time: Sep 01, 2023 03:23 PM Reporting Lab: [facility] [place] [facility] [address] [facility] [address] Performing Lab: [facility] [place] [facility] [address] [facility] [address] [facility] LIVER FUNCTION PROTEIN [MASS/VOLUM E] IN SERUM OR PLASMA 7.3 g/dL 6.0 - 8.3 09/08 Specimen Type: SERUM No comment entered. Ordering Provider: LAMONTE STINSON Report Released Date/Time: Sep 01, 2023 03:23 PM Reporting Lab: [facility] [place] [facility] [address] [facility] [address] Performing Lab: [facility] [place] [facility] [address] [facility] [address] [facility] [place] [facility] LIVER FUNCTION ALBUMIN [MASS/VOLUM E] IN SERUM OR PLASMA 4.1 g/dL 3.5 - 5.0 09/08 Specimen Type: SERUM No comment entered. Ordering Provider: LAMONTE STINSON Report Released Date/Time: Sep 01, 2023 03:23 PM Reporting Lab: [facility] [place] [facility] [address] [facility] [address] Performing Lab: [facility] [place] [facility] [address] [facility] [address] [facility] [place] [facility] LIVER FUNCTION ALKALINE PHOSPHATASE [ENZYMATIC ACTIVITY/VO LUME] IN SERUM OR PLASMA 94 U/L 40 - 150 09/08 Specimen Type: SERUM No comment entered. Ordering Provider: LAMONTE STINSON Report Released Date/Time: Sep 01, 2023 03:23 PM Reporting Lab: [facility] [place] [facility] [address] [facility] [address] Performing Lab: [facility] [place] [facility] [address] [facility] [address] [facility] [place] [facility] LIVER FUNCTION ASPARTATE AMINOTRANSF ERASE [ENZYMATIC ACTIVITY/VO LUME] IN SERUM OR PLASMA 22 U/L 5 - 34 09/08 Specimen Type: SERUM No comment entered. Ordering Provider: LAMONTE STINSON Report Released Date/Time: Sep 01, 2023 03:23 PM Reporting Lab: [facility] [place] [facility] [address] [facility] [address] Performing Lab: [facility] [place] [facility] [address] [facility] [address] [facility] [place] [facility] LIVER FUNCTION ALANINE AMINOTRANSF ERASE [ENZYMATIC ACTIVITY/VO LUME] IN SERUM OR PLASMA 22 U/L 09/08 Specimen Type: SERUM No comment entered. Ordering Provider: LAMONTE STINSON Report Released Date/Time: Sep 01, 2023 03:23 PM Reporting Lab: [facility] [place] [facility] [address] [facility] [address] Performing Lab: [facility] [place] [facility] [address] [facility] [address] [facility] [place] [facility] LIVER FUNCTION BILIRUBIN.T OTAL [MASS/VOLUM E] IN SERUM OR PLASMA 1.1 mg/dL 0.2 - 1.2 09/08 Specimen Type: SERUM No comment entered. Ordering Provider: LAMONTE STINSON Report Released Date/Time: Sep 01, 2023 03:23 PM Reporting Lab: [facility] [place] [facility] [address] [facility] [address] Performing Lab: [facility] [place] [facility] [address] [facility] [address] [facility] [place] [facility] PT & INR (PROTIME) INR IN PLATELET POOR PLASMA BY COAGULATION ASSAY 1.3 09/08 Specimen Type: PLASMA No comment entered. Ordering Provider: LAMONTE STINSON Report Released Date/Time: Sep 01, 2023 03:23 PM Reporting Lab: [facility] [place] [facility] [address] [facility] [address] Performing Lab: [facility] [place] [facility] [address] [facility] [address] [facility] [place] [facility] PT & INR (PROTIME) PROTHROMBIN TIME (PT) 14.3 s 10.0 - 13.1 09/08 H Specimen Type: PLASMA No comment entered. Ordering Provider: LAMONTE STINSON Report Released Date/Time: Sep 01, 2023 03:23 PM Reporting Lab: [facility] [place] [address] [address] Performing Lab: [place] [facility] [place] [address] [address] [facility] CREATININ E (eGFR 2020) CREATININE [MASS/VOLUM E] IN SERUM OR PLASMA 1.38 mg/dL 0.50 - 1.40 04/28 Specimen Type: SERUM No comment entered. Ordering Provider: ELVIA SHAH Report Released Date/Time: Apr 13, 2023 04:12 PM Reporting Lab: [facility] TR[facility] [place] [address] Performing Lab: [place] [facility]USETS [address] [address] [facility] CREATININ E (eGFR 2020) GLOMERULAR FILTRATION RATE/1.73 SQ M.PREDICTED [VOLUME RATE/AREA] IN SERUM, PLASMA OR BLOOD BY CREATININE- BASED FORMULA (CKD-EPI 2020) 52 mL/min 60 04/28 L Specimen Type: SERUM No comment entered. Ordering Provider: ELVIA SHAH Report Released Date/Time: Apr 13, 2023 04:12 PM Reporting Lab: [place] [facility] [place] [address] [address] Performing Lab: [facility] TRN [facility]ENTERUSETS [address] [address] [facility] [place] [facility] CBC LEUKOCYTES [#/VOLUME] IN BLOOD BY AUTOMATED COUNT 5.78 10*3/u L 4.50 - 11.00 04/28 Specimen Type: BLOOD No comment entered. Ordering Provider: ELVIA SHAH Report Released Date/Time: Apr 13, 2023 04:12 PM Reporting Lab: [facility] [place] [facility] [address] [facility] [address] Performing Lab: [facility] [place] [facility] [address] [facility] [address] [facility] [place] [facility] CBC ERYTHROCYTE S [#/VOLUME] IN BLOOD BY AUTOMATED COUNT 5.08 10*6/u L 4.23 - 5.66 04/28 Specimen Type: BLOOD No comment entered. Ordering Provider: ELVIA SHAH Report Released Date/Time: Apr 13, 2023 04:12 PM Reporting Lab: [facility] [place] [facility] [address] [facility] [phone] Performing Lab: [facility] [place] [facility] [address] [facility] [address] [facility] [place] [facility] CBC HEMOGLOBIN [MASS/VOLUM E] IN BLOOD 16.3 g/dL 12.8 - 17 04/28 Specimen Type: BLOOD No comment entered. Ordering Provider: ELVIA SHAH Report Released Date/Time: Apr 13, 2023 04:12 PM Reporting Lab: [facility] [place] [facility] [address] [facility] [address] Performing Lab: [facility] [place] [facility] [address] [facility] [address] [facility] [place] [facility] CBC HEMATOCRIT [VOLUME FRACTION] OF BLOOD BY AUTOMATED COUNT 48.8 39.2 - 50.4 04/28 Specimen Type: BLOOD No comment entered. Ordering Provider: ELVIA SHAH Report Released Date/Time: Apr 13, 2023 04:12 PM Reporting Lab: [facility] [place] [facility] [address] [facility] [address] Performing Lab: [facility] [place] [facility] [address] [facility] [address] [facility] CBC MCV [ENTITIC VOLUME] BY AUTOMATED COUNT 96.1 fL 82 - 99 04/28 Specimen Type: BLOOD No comment entered. Ordering Provider: ELVIA SHAH Report Released Date/Time: Apr 13, 2023 04:12 PM Reporting Lab: [facility] [place] [facility] [address] [facility] [address] Performing Lab: [facility] [place] [facility] [address] [facility] [address] [facility] [place] [facility] CBC MCHC [MASS/VOLUM E] BY AUTOMATED COUNT 33.4 g/dL 30.8 - 35.1 04/28 Specimen Type: BLOOD No comment entered. Ordering Provider: ELVIA SHAH Report Released Date/Time: Apr 13, 2023 04:12 PM Reporting Lab: [facility] [place] [facility] [address] [facility] [address] Performing Lab: [facility] [place] [address] [address] [facility] [place] [facility] CBC PLATELETS [#/VOLUME] IN BLOOD BY AUTOMATED COUNT 168 10*3/u L 140 - 360 04/28 Specimen Type: BLOOD No comment entered. Ordering Provider: ELVIA SHAH Report Released Date/Time: Apr 13, 2023 04:12 PM Reporting Lab: [facility] [place] [address] [address] Performing Lab: [facility] [place] [address] [address] [facility] [place] [facility] CBC ERYTHROCYTE DISTRIBUTIO N WIDTH [RATIO] BY AUTOMATED COUNT 13.2 12.0 - 16.0 04/28 Specimen Type: BLOOD No comment entered. Ordering Provider: ELVIA SHAH Report Released Date/Time: Apr 13, 2023 04:12 PM Reporting Lab: [facility] [place] [address] [address] Performing Lab: [facility] [place] [address] [address] [facility] [place] [facility] CBC MCH [ENTITIC MASS] BY AUTOMATED COUNT 32.1 pg 26.2 - 32.6 04/28 Specimen Type: BLOOD No comment entered. Ordering Provider: ELVIA SHAH Report Released Date/Time: Apr 13, 2023 04:12 PM Reporting Lab: [facility] [place] [facility] [address] [facility] [address] Performing Lab: [facility] [place] [facility] [address] [facility] [address] [facility] THYROID T4 FREE(FT4) THYROXINE (T4) FREE [MASS/VOLUM E] IN SERUM OR PLASMA 1.31 ng/dL 0.6 - 1.6 09/10 Specimen Type: SERUM Comment: Specimen Icteric Ordering Provider: LAMONTE STINSON Report Released Date/Time: Sep 04, 2022 11:19 AM Reporting Lab: [facility] [place] [facility] [address] [facility] [address] Performing Lab: [facility] [place] [facility] [address] [facility] [address] [facility] [place] [facility] CBC LEUKOCYTES [#/VOLUME] IN BLOOD BY AUTOMATED COUNT 5.77 10*3/u L 4.50 - 11.00 09/10 Specimen Type: BLOOD No comment entered. Ordering Provider: LAMONTE STINSON Report Released Date/Time: Sep 04, 2022 11:19 AM Reporting Lab: [facility] [place] [facility] [address] [facility] [address] Performing Lab: [facility] [place] [facility] [address] [facility] [address] [facility] CBC ERYTHROCYTE S [#/VOLUME] IN BLOOD BY AUTOMATED COUNT 5.35 10*6/u L 4.23 - 5.66 09/10 Specimen Type: BLOOD No comment entered. Ordering Provider: LAMONTE STINSON Report Released Date/Time: Sep 04, 2022 11:19 AM Reporting Lab: [facility] [place] [facility] [address] [facility] [address] Performing Lab: [facility] [place] [facility] [address] [facility] [address] [facility] CBC HEMOGLOBIN [MASS/VOLUM E] IN BLOOD 17.2 g/dL 12.8 - 17 09/10 H Specimen Type: BLOOD No comment entered. Ordering Provider: LAMONTE STINSON Report Released Date/Time: Sep 04, 2022 11:19 AM Reporting Lab: [facility] [place] [facility] [address] [facility] [address] Performing Lab: [facility] [place] [facility] [address] [facility] [address] [facility] [place] [facility] CBC HEMATOCRIT [VOLUME FRACTION] OF BLOOD BY AUTOMATED COUNT 51.4 39.2 - 50.4 09/10 H Specimen Type: BLOOD No comment entered. Ordering Provider: LAMONTE STINSON Report Released Date/Time: Sep 04, 2022 11:19 AM Reporting Lab: [facility] [place] [address] [address] Performing Lab: [facility] [place] [facility] [address] [facility] [address] [facility] [place] [facility] CBC MCV [ENTITIC VOLUME] BY AUTOMATED COUNT 96.1 fL 82 - 99 09/10 Specimen Type: BLOOD No comment entered. Ordering Provider: LAMONTE STINSON Report Released Date/Time: Sep 04, 2022 11:19 AM Reporting Lab: [facility] [place] [address] [address] Performing Lab[facility] [place] [facility] [address] [facility] [address] [facility] [place] [facility] CBC MCHC [MASS/VOLUM E] BY AUTOMATED COUNT 33.5 g/dL 30.8 - 35.1 09/10 Specimen Type: BLOOD No comment entered. Ordering Provider: LAMONTE STINSON Report Released Date/Time: Sep 04, 2022 11:19 AM Reporting Lab: [facility] [place] [address] [address] Performing Lab: [facility] [place] [address] [address] [facility] [place] [facility] CBC PLATELETS [#/VOLUME] IN BLOOD BY AUTOMATED COUNT 151 10*3/u L 140 - 360 09/10 Specimen Type: BLOOD No comment entered. Ordering Provider: LAMONTE STINSON Report Released Date/Time: Sep 04, 2022 11:19 AM Reporting Lab: [facility] [place] [facility] [address] [facility] [address] Performing Lab: [facility] [place] [facility] [address] [facility] [address] [facility] [place] [facility] CBC ERYTHROCYTE DISTRIBUTIO N WIDTH [RATIO] BY AUTOMATED COUNT 13.9 12.0 - 16.0 09/10 Specimen Type: BLOOD No comment entered. Ordering Provider: LAMONTE STINSON Report Released Date/Time: Sep 04, 2022 11:19 AM Reporting Lab: [facility] [place] [address] [address] Performing Lab: [facility] [place] [address] [address] [facility] [place] [facility] CBC MCH [ENTITIC MASS] BY AUTOMATED COUNT 32.1 pg 26.2 - 32.6 09/10 Specimen Type: BLOOD No comment entered. Ordering Provider: LAMONTE STINSON Report Released Date/Time: Sep 04, 2022 11:19 AM Reporting Lab: [facility] [place] [address] [address] Performing Lab: [facility] [place] [address] [address] [facility] [place] [facility] BASIC METABOLIC PANEL (fasting) UREA NITROGEN [MASS/VOLUM E] IN SERUM OR PLASMA 20 mg/dL 7 - 09/10 Specimen Type: SERUM No comment entered. Ordering Provider: LAMONTE STINSON Report Released Date/Time: Sep 04, 2022 11:19 AM Reporting Lab: [facility] [place] [address] [address] Performing Lab: [facility] [place] [facility] [address] [facility] [address] [facility]USE [facility] BASIC METABOLIC PANEL (fasting) GLUCOSE [MASS/VOLUM E] IN SERUM OR PLASMA 104 mg/dL 65 - 100 09/10 H Specimen Type: SERUM No comment entered. Ordering Provider: LAMONTE STINSON Report Released Date/Time: Sep 04, 2022 11:19 AM Reporting Lab: [facility] [address] [facility] [address] Performing Lab: [facility]ITALTRN [facility]ENTERUSEGUTH[facility] [address] [facility] [address] [facility]N [facility]ENTERUSE [facility] BASIC METABOLIC PANEL (fasting) SODIUM [MOLES/VOLU ME] IN SERUM OR PLASMA 139 mmol/L 135 - 145 09/10 Specimen Type: SERUM No comment entered. Ordering Provider: LAMONTE STINSON Report Released Date/Time: Sep 04, 2022 11:19 AM Reporting Lab: [facility]OSPITALTRN [facility]ENTERUSEG[facility] [address] [facility] [address] Performing Lab: [facility]OSPITALTRN [facility]ENTERUSEG[facility] [address] [facility] [address] [facility] BASIC METABOLIC PANEL (fasting) POTASSIUM [MOLES/VOLU ME] IN SERUM OR PLASMA 4.0 mmol/L 3.5 - 5.0 09/10 Specimen Type: SERUM No comment entered. Ordering Provider: LAMONTE STINSON Report Released Date/Time: Sep 04, 2022 11:19 AM Reporting Lab: [facility] [place] [facility] [address] [facility] [address] Performing Lab: [facility]OSPITALTRN [facility]ENTERUSEGUTHRI[facility] [address] [facility] [address] [facility]ENTERUSE [facility] BASIC METABOLIC PANEL (fasting) CHLORIDE [MOLES/VOLU ME] IN SERUM OR PLASMA 104 mmol/L 100 - 110 09/10 Specimen Type: SERUM No comment entered. Ordering Provider: LAMONTE STINSON Report Released Date/Time: Sep 04, 2022 11:19 AM Reporting Lab: [facility] [place] [facility] [address] [facility] [address] Performing Lab: [facility] [place] [facility] [address] [facility] [address] [facility] W[facility]N [facility]SE [facility] BASIC METABOLIC PANEL (fasting) CARBON DIOXIDE, TOTAL [MOLES/VOLU ME] IN SERUM OR PLASMA 24 meq/L 20 - 30 09/10 Specimen Type: SERUM No comment entered. Ordering Provider: LAMONTE STINSON Report Released Date/Time: Sep 04, 2022 11:19 AM Reporting Lab: [facility] [place] [facility] [address] [facility] [address] Performing Lab: [facility] WSTRN [facility]ENTERUSEGUTHRI[facility] [address] [facility] [address] [facility]ENTERUSE [facility] BASIC METABOLIC PANEL (fasting) CREATININE [MASS/VOLUM E] IN SERUM OR PLASMA 1.41 mg/dL 0.50 - 1.40 09/10 H Specimen Type: SERUM No comment entered. Ordering Provider: LAMONTE STINSON Report Released Date/Time: Sep 04, 2022 11:19 AM Reporting Lab: [facility] [place] [facility] [address] [facility] [address] Performing Lab: [facility]ENTERUSETS [facility] [address] [facility] [address] [facility]ALTHRL TRN [facility]ENTERUSE [facility] BASIC METABOLIC PANEL (fasting) GLOMERULAR FILTRATION RATE/1.73 SQ M.PREDICTED [VOLUME RATE/AREA] IN SERUM, PLASMA OR BLOOD BY CREATININE- BASED FORMULA (CKD-EPI) 51 mL/min 09/10 L Specimen Type: SERUM No comment entered. Ordering Provider: LAMONTE STINSON Report Released Date/Time: Sep 04, 2022 11:19 AM Reporting Lab: [facility] [place] [facility] [address] [facility] [address] Performing Lab: [facility] CENTERUSE[address] [address] [facility]ALTHRL TRN [facility]ENTERUSE TS [facility] Vital Signs Combined list of inpatient and outpatient Vital Signs from Department of Defense and Veterans Affairs, ranging from 12 months to all on record, depending upon the facility. Vital Sign Value Date Comments Source SYSTOLIC BLOOD PRESSURE 121 09/17/19 24 12:56:12 [facility] [place] DIASTOLIC BLOOD PRESSURE 87 024 12:56:12 [facility] [place] PULSE OXIMETRY 99 09/17/2023 12:56:12 [facility] WEIGHT 183 09/17/2023 12:56:12 [facility] BMI 28 kg/m2 09/17/2023 12:56:12 [facility] PAIN 0 09/17/2023 12:56:12 [facility] HEIGHT 68 09/17/2023 12:56:12 [facility] TEMPERATURE 97.7 09/17/2023 12:56:12 [facility] PULSE 72 09/17/2023 12:56:12 [facility] RESPIRATION 20 09/17/2023 12:56:12 [facility] [place] Encounters Combined list of: 1) Encounters from Department of Veterans Affairs facilities going backup to the last 18 months, not all VA inpatient encounters are included; 2) Encounters from the Department of Defense facilities going backup to 280 months. Location Location Details Encounter Type Encounter Number Reason For Visit Attending Provider ADM Date DC Date Status Disposition Source [facility] QNHP OL DIG ASSMT&MGMT 5-10 [id number] Diagnos is: ICD-10- CM Z51.81 Encount er for therape utic drug level monitor RIC Chaves 04/13 [facility] Outpatient Encounter [id number] ERICA MORGAN ISTOPHER E 06/24 [facility] [place] Outpatient Encounter [id number] 07/01 [place] [facility] [place] [facility] (6[facility]GE) QNHP OL DIG ASSMT&MGMT 5-10 [id number] Diagnos is: ICD-10- CM Z79.01 FDC (curren t) use of anticoa gulants SHERMAN NAVARRO 09/09 [facility] [place] [facility] Outpatient Encounter [id number] 09/09 [place] [facility] [place] [facility] [place] [facility] OFFICE O/P EST LOW 20 MIN [id number] Diagnos is: ICD-10- CM 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 Social History Type Response Date Comment Sourc e Tobacco smoking status NHIS VA-TOBACCO FORMER USER 09/17/2023 [facility] History of tobacco use [place]-TOBACCO QUIT 15 YRS OR MORE 09/17/2023 [facility] History of tobacco use VA-TOBACCO FORMER USER 09/16/2022 [facility] History of tobacco use VA-TOBACCO FORMER USER 09/12/2021 [facility] History of tobacco use VA-TOBACCO FORMER USER 01/17/2020 [facility] History of tobacco use VA-TOBACCO QUIT 15 YRS OR MORE 08/03/2018 [facility] [place] [facility] History of tobacco use QUIT TOBACCO USE > 7 YEARS AGO 10/22/2017 [facility] History of tobacco use LIFETIME NON-TOBACCO USER 10/16/2016 [facility] Plan of Care List of future care activities from Department of Veterans Affairs facilities. Additional future care activities may be listed in the Assessment and Plan section. Date/Time Care Activity Care Activity Detail Facili ty 09/15/2024 AMBULATORY - MEDICINE AMBULATORY - MEDICI NE [facility]
--- OUTSIDE RECORDS SUMMARY | 2024-08-01 09:39 | XMS_ITS ---
Author Organization Maykel Levin MD Address [address] [place] [id number] Care Team Providers Care Candlemaking Laborer Name Role Phone Maykel Levin Primary Care Provider [phone] REASON FOR VISIT fasting lipids Encounters Encounter Location Date Provider Diagnosis Maykel Levin MD [address] [facility] [address] [place] [phone] 07/31/2024 Maykel Levin Pure hypercholestero lemia E78.00 Assessments Encounter Date Diagnosis (ICD Code) Assessment Notes Treatment Notes Treatment Clinical Notes Section Notes 07/31/2024 Pure hypercholesterolemia (ICD-10 - E78.00) Plan Of Treatment Pending Test Test Name Order Date Liver Panel 07/31/2024 Lipid Panel with Reflex 07/31/2024 Next Appt Details Provider Name:Maykel stewart, 08/07/2024 09:00:00 AM, [address] [facility], [address], [place], [place], [id number], Provider Name:Maykel Jason ier, 02/05/2025 07:15:00 AM, [address] [facility], [address], [place], [place], [id number], Provider Name:Maykel Jason ier, 02/12/2025 09:30:00 AM, [address] [facility], [address], [place], [place], [id number], Progress Notes * Madan OLIVEIRA JDOB :1945 (79 yo M)Acc No.[id number]:07/31/2024 Progress Note Patient:?Charlene OLIVEIRA Provider:?Maykel Levin MD :1945???Age:79 Y???Sex:Male Randy e:07/31/2024 Address:[address] [place], [place] [id number] Subjective: * Chief Complaints: * ???1. Fasting lipids. * Medical History:? Objective: * Vitals:? Assessment: * Assessment: 1.?Pure hypercholesterolemia - E78.00 (Primary)??? Plan: * Treatment: * * The named appointment provid er may or may not be the originator of this progress note, and it is not deemed complete until electronically signed by the appointment provider. Sign off status: Pending * Provider:?Maykel Levin MD Date:?0 07/31/2024 Generated for Wilmer salazar/Tequila/eTransmitting on:?08/01/2024 09:39 AM EDT
--- OUTSIDE RECORDS SUMMARY | 2024-08-01 09:40 | XMS_ITS | Encounter Summary ---
Author Name [facility] Address [address] [place] [address] Care Team Providers Care Agile Coach Name Role Phone EDWARD BECERRA Primary Care Provider Unavaila ble Insurance Providers: All historical and current Section Date Range: From patient's date of to the date document was created. This section includes the names of all active insurance providers for the patient. Insurance Provider Type of Coverage Plan Name Start of Policy Coverage End of Policy Coverage Group Number Member ID Insurance Provider's Telephone Number Policy Saab's Name Patient's Relationship to Policy Saab [facility] ([facility] MEDICARE ADVANTAGE [facility] ([facility]) Mar 29, 2016 [id number] PATIENT Selected Encounter This section includes the information on record at [place] for the Encounter. 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 Date/Time Primary/Secondary Diagnosis Diagnosis Name Provider Source Sep 10, 2023 09:47 AM PRIMARY long-term (current) use of anticoagulants [facility] ([id number]) Plan of Treatment: Future Appointments (+ 6 months) and Future Tests (+/- 45 days) The Plan of Treatment section includes future care activities for the patient from all [place] treatmentfacilities. This section includes future appointments and future orders which are active, pending or scheduled. Future Appointments This section includes appointments that were scheduled to occur 6 months from the date of the Encounter, up to a maximum of 20 appointments. The data comes from all [place] treatment facilities. Appointment Date/Time Appointment Type Appointme nt Facility Name Sep 17, 2023 01:00 PM [facility] - [facility] Results: +/- 30 days of the encounter This section includes the Chemistry and Hematology Lab Results on record with [place] for the patient. Radiology Reports and Pathology Reports are provided separately, in subsequent sections. Lab Results This section contains the Chemistry/Hematology Results that were resulted 30 days before or 30 daysafter the date of the Encounter. Date/Time Source Result Type Result - Unit Interpretation Reference Range Specimen Type Comment Sep 09, 2023 01:16 PM [facility] CBC BLOOD Specimen Type: BLOOD No comment entered. Ordering Provider: EDWARD BECERRA Report Released Date/Time: Sep 01, 2023 03:23 PM Reporting Lab: [facility] [address] [facility] [address] Performing Lab: [address] [address] WBC 6.93 10*3/uL 4.50-11.00 RBC 5.22 10*6/uL 4.23-5.66 HGB 16.1 g/dL 12.8-17 HCT 47.8 39.2-50.4 MCV 91.6 fL 82-99 MCHC 33.7 g/dL 30.8-35.1 PLT 189 10*3/uL 140-360 RDW-CV 14.1 12.0-16.0 MCH 30.8 pg 26.2-32.6 Sep 09, 2023 01:16 PM [facility] BASIC METABOLIC PANEL (non-fasting) SERUM Spe cimen Type: SERUM No comment entered. Ordering Provider: EDWARD BECERRA Report Released Date/Time: Sep 01, 2023 03:23 PM Reporting Lab: [facility] [address] [facility] [address] Performing Lab: [facility] [address] [facility] [address] UREA NITROGEN 22 mg/dL 7-25 GLUCOSE 120 mg/dL H 65-100 SODIUM 137 mmol/L 135-145 POTASSIUM 4.1 mmol/L 3.5-5.0 CHLORIDE 102 mmol/L 100-110 CO2 25 meq/L 20-30 CREATININE, Serum 1.46 mg/dL H 0.50-1.40 eGFR(CKD-EPI 2020) 49 mL/min L >60 Sep 09, 2023 01:16 PM [facility] LIPID PANEL, NON FASTING SERUM Specimen Type: SERUM No comment entered. Ordering Provider: EDWARD BECERRA Report Released Date/Time: Sep 01, 2023 03:23 PM Reporting Lab: [facility] [address] [facility] [address] Performing Lab: [address] [address] CHOLESTEROL 183 mg/dL TRIGLYCERIDE 76 mg/dL 0-150 LDL calculated 107 mg/dL 0-129 CHOL/HDL 3.0 HDL CHOLESTEROL 61 mg/dL H 40-60 Sep 09, 2023 01:16 PM [facility] LIVER FUNCTION SERUM Specimen Type: SERUM No comment entered. Ordering Provider: EDWARD BECERRA Report Released Date/Time: Sep 01, 2023 03:23 PM Reporting Lab: [facility] [address] [facility] [address] Performing Lab: [address] [address] PROTEIN,TOTAL 7.3 g/dL 6.0-8.3 ALBUMIN 4.1 g/dL 3.5-5.0 ALKALINE PHOSPHATASE 94 U/L 40-150 AST 22 U/L 5-34 ALT 22 U/L BILIRUBIN, TOTAL 1.1 mg/dL 0.2-1.2 Sep 09, 2023 01:16 PM [facility] PT & INR (PROTIME) PLASMA Specimen Type: PLASM A No comment entered. Ordering Provider: EDWARD BECERRA Report Released Date/Time: Sep 01, 2023 03:23 PM Reporting Lab: [facility] [address] [facility] [address] Performing Lab: [facility] [address] [facility] [address] INR 1.3 PROTIME 14.3 s H 10.0-13.1 Encounter Notes: All associated encounter notes This section contains the clinical notes associated to the Encounter. Date/Time Encounter Note(s) Provider Source Sep 10, 2023 09:40 AM PHARMACY MEDICATION MGT NOTE: LOCAL TITLE: PHARMACY ANTICOAGULATION NOTE STANDARD TITLE: PHARMACY MEDICATION MGT NOTE DATE OF NOTE: SEP 10, 2023@09:40 ENTRY DATE: SEP 10, 2023@09:40:11 AUTHOR: CHINO NAVARRO EXP COSIGNER: URGENCY: STATUS: COMPLETED ANTICOAGULATION DOAC MONITORING NOTE SUBJECTIVE: Patient identified through the DOAC population Management Tool based on the following criteria: [ X ] Dosing Issue [ ] Critical Drug Interaction [ ] Cancer Treatment [ ] Active NSAID [ ] Labs Overdue [ ] Prosthetic Valve Replacement [ ] Notable Lab Value [ ] Overdue for Refill [ ] Other: Comments: DOAC Dashboard alerted [facility] to the following: For patients with CrCl < 50 mL/min and declining or fluctuating renal function, consider switching to a non-dabigatran DOAC due to the primary renal clearance of dabigatran, favoring apixaban when CrCl < 30 mL/min. OBJECTIVE: Indication for anticoagulation: [ X ] Atrial fibrilation [ ] Atrial flutter [ ] VTE (DVT or PE) [ ] Post-op DVT prophylaxis [ ] Other: Most recent lab values include the following: HGB: HGB Collection DT Specimen Test Name Result Units Ref Range 09/09/2023 13:16 BLOOD HGB 16.1 g/dL 12.8 - 17 PLT: WBC Collection DT Specimen Test Name Result Units Ref Range 09/09/2023 13:16 BLOOD WBC 6.93 K/cmm 4.50 - 11.00 Liver Function Tests Collection DT Spec AST ALT ALK ALY ALBUMIN T BILI T. PROT 09/09/2023 13:16 SERUM 22 22 94 4.1 1.1 7.3 HEIGHT: 68 in [172.7 cm] (09/12/2021 10:46) WEIGHT: 181 lb [82.10 kg] (09/16/2022 13:01) BMI: BMI: 27.6 CREATININE-EGFR 09/09/23 13:16 1.46 H 04/28/23 09:33 1.38 09/10/22 08:42 1.41 H CRCL IBW: 40.3 mL/min (09/09/23) CRCL ACT: 48.52 mL/min (09/09/23) CRCL ADJ: 44 mL/min (09/09/23) ASSESSMENT: Recent labs reveal SCr of 1.46. CrCl based on recent SCr is less than <50mL/min For dabigatran, in patients with CrCl less than 50 ml/min and declining or fluctuating renal function, consider switching to a non-dabigatran DOAC due to the primary renal clearance of dabigatran. PLAN: [ ] No action required, dismiss flag [ X ] Will intervene: [ ] Patient education via phone/letter [ ] Schedule phone/[id number] follow up [ ] Lab ordered [ ] Discontinue interacting medication [ ] Discontinue DOAC [ ] Change to alternative DOAC [ ] Change DOAC dose [ X ] Notify PCP [ ] Consult cardiology/hematology [ ] Other: Alerting PCP to comments above. Please consider appropriateness of dabigatran given CrCl <50mL/min. If planning to switch to alternative DOAC, a new [facility] consult must be entered. Time spent: 10 min /montse/ Chino Navarro, Deondre Clinical Group Worker Signed: 09/10/2023 09:49 Receipt Acknowledged By: 09/10/2023 10:44 /montse/ Edward Becerra DNP, JAVA J2EE TECHNICAL LEAD-BC, CNL Primary Care Nurse Practitioner CHINO NAVARRO [facility] ([id number])
--- OUTSIDE RECORDS SUMMARY | 2024-08-01 09:40 | XMS_ITS ---
Author Name [facility] [place] Organization [facility] [place] Address [address] [place] [address] Care Team Providers Care Fruit Grader Name Role Phone EDWARD BECERRA Primary Care Provider [facility] Insurance Providers: All historical and current Section Date Range: From patient's date of to the date document was created. This section includes the names of all active insurance providers for the patient. Insurance Provider Type of Coverage Plan Name Start of Policy Coverage End of Policy Coverage Group Number Member ID Insurance Provider's Telephone Number Policy Saab's Name Patient's Relationship to Policy Saab [facility] ([facility]) MEDICARE ADVANTAGE [id number] ([facility]) Mar 29, 2016 [id number] PATIENT Selected Encounter This section includes the information on record at [place] for the Encounter. Date/Time Encounter Type Encounter Description Reason Provider Source Sep 17, 2023 01:00 PM OFFICE O/P EST LOW 20 MIN PRIMARY CARE/MEDICINE ICD-10-CM N40.1 Benign prostatic hyperplasia with lower urinary tract symp CALLUM BECERRA AM Encounter Template Text not used by VA Assessments - Encounter Diagnoses This section includes the primary and secondary diagnoses documented for the Encounter. Date/Time Primary/Secondary Diagnosis Diagnosis Name Provider Source Sep 17, 2023 01:35 PM PRIMARY Benign prostatic hyperplasia with lower urinary tract symp BECERRA,WILL SHIRA J [facility] Sep 17, 2023 01:35 PM SECONDARY Essential (primary) hypertension BECERRA,WILL SHIRA J [facility] Sep 17, 2023 01:35 PM SECONDARY Heart failure, unspecified EBCERRA,WILL SHIRA J [facility] Sep 17, 2023 01:35 PM SECONDARY Other obstructive and reflux uropathy BECERRA,WILL SHIRA J [facility] Sep 17, 2023 01:35 PM SECONDARY Unspecified atrial fibrillation BECERRA,WILL SHIRA J [facility] Lab Results: +/- 30 days of [...] Type Comment Sep 09, 2023 01:16 PM [facility] CBC BLOOD Specimen Type: BLOOD No comment entered. Ordering Provider: EDWARD BECERRA Report Released Date/Time: Sep 01, 2023 03:23 PM Reporting Lab: [facility] [address] [facility] [address] Performing Lab: [address] [address] WBC 6.93 10*3/uL 4.50-11.00 RBC 5.22 10*6/uL 4.23-5.66 HGB 16.1 g/dL 12.8-17 HCT 47.8 39.2-50.4 MCV 91.6 fL 82-99 MCHC 33.7 g/dL 30.8-35.1 PLT 189 10*3/uL 140-360 RDW-CV 14.1 12.0-16.0 MCH 30.8 pg 26.2-32.6 Sep 09, 2023 01:16 PM [facility] BASIC METABOLIC PANEL (non-fasting) SERUM Spe cimen Type: SERUM No comment entered. Ordering Provider: EDWARD BECERRA Report Released Date/Time: Sep 01, 2023 03:23 PM Reporting Lab: [facility] [address] [facility] [address] Performing Lab: [facility] [address] [facility] [address] UREA NITROGEN 22 mg/dL 7-25 GLUCOSE 120 mg/dL H 65-100 SODIUM 137 mmol/L 135-145 POTASSIUM 4.1 mmol/L 3.5-5.0 CHLORIDE 102 mmol/L 100-110 CO2 25 meq/L 20-30 CREATININE, Serum 1.46 mg/dL H 0.50-1.40 eGFR(CKD-EPI 2020) 49 mL/min L >60 Sep 09, 2023 01:16 PM [facility] LIPID PANEL, NON FASTING SERUM Specimen Type: SERUM No comment entered. Ordering Provider: EDWARD BECERRA Report Released Date/Time: Sep 01, 2023 03:23 PM Reporting Lab: [facility] [address] [facility] [address] Performing Lab: [address] [address] CHOLESTEROL 183 mg/dL TRIGLYCERIDE 76 mg/dL 0-150 LDL calculated 107 mg/dL 0-129 CHOL/HDL 3.0 HDL CHOLESTEROL 61 mg/dL H 40-60 Sep 09, 2023 01:16 PM [facility] LIVER FUNCTION SERUM Specimen Type: SERUM No comment entered. Ordering Provider: EDWARD BECERRA Report Released Date/Time: Sep 01, 2023 03:23 PM Reporting Lab: [facility] [address] [facility] [address] Performing Lab: [address] [address] PROTEIN,TOTAL 7.3 g/dL 6.0-8.3 ALBUMIN 4.1 g/dL 3.5-5.0 ALKALINE PHOSPHATASE 94 U/L 40-150 AST 22 U/L 5-34 ALT 22 U/L BILIRUBIN, TOTAL 1.1 mg/dL 0.2-1.2 Sep 09, 2023 01:16 PM [facility] PT & INR (PROTIME) PLASMA Specimen Type: PLASM A No comment entered. Ordering Provider: EDWARD BECERRA Report Released Date/Time: Sep 01, 2023 03:23 PM Reporting Lab: [facility] [address] [facility] [address] Performing Lab: [facility] [address] [facility] [address] INR 1.3 PROTIME 14.3 s H 10.0-13.1 Vital Signs: All taken on the encounter date This section contains inpatient and outpatient Vital Signs collected on the date of the Encounter. Date/Time Temperature Pulse Blood Pressure Respiratory Rate SP02 Pain Height Weight Body Mass Index Source Sep 17, 2023 12:56 PM 97.7 72 121/87 20 99 0 68 183 28 [facility] Social History: Smoking Status (Most current) and Tobacco Use (All prior to encounter date) This section includes the most current, and the historical, smoking and tobacco- related health factors from the [place] facility where the Encounter took place. Current Smoking Status This section includes the most current smoking, or tobacco-related health factor, from the [place] facility where the Encounter took place. Date/Time Current Smoking Status Comment Ronald cardoza Sep 17, 2023 01:00 PM VA-TOBACCO FORMER USER [facility] Tobacco Use History This section includes a history of the smoking, or tobacco-related health factors, that were collected on or before the date of the Encounter. The data comes from the [place] facility where the Encounter took place. Date/Time Smoking Status/Tobacco Use Comment F acility Sep 17, 2023 01:00 PM VA-TOBACCO QUIT 15 YRS OR MORE [facility] [place] [facility] Sep 16, 2022 01:00 PM VA-TOBACCO FORMER USER [facility] Sep 16, 2022 01:00 PM VA-TOBACCO QUIT 15 YRS OR MORE [facility] [place] [facility] Sep 12, 2021 11:00 AM [facility]ACCO [facility] [place] Sep 12, 2021 11:00 AM VA-TOBACCO QUIT 15 YRS OR MORE [facility] [place] [facility] Jan 17, 2020 11:13 AM VA-TOBACCO FORMER USER [facility] [place] [facility] Jan 17, 2020 11:13 AM VA-TOBACCO QUIT 15 YRS OR MORE [facility] [place] [facility] August 03, 2018 01:00 PM VA-TOBACCO FORMER USER [facility] [place] [facility] August 03, 2018 01:00 PM VA-TOBACCO QUIT 15 YRS OR MORE [facility] [place] [facility] Oct 22, 2017 01:09 PM QUIT TOBACCO USE > 7 YEARS AGO [facility] [place] [facility] Oct 16, 2016 10:43 AM LIFETIME NON-TOBACCO USER [facility] Encounter Notes: All associated encounter notes This section contains the clinical notes associated to the Encounter. Date/Time Encounter Note(s) Provider Source Sep 17, 2023 01:29 PM PRIMARY CARE NURSE PRACTITIONER OUTPATIENT NOTE: LOCAL TITLE: NURSE PRACTITIONER OUTPATIENT NOTE STANDARD TITLE: PRIMARY CARE NURSE PRACTITIONER OUTPATIENT NOTE DATE OF NOTE: SEP 17, 2023@13:29 ENTRY DATE: SEP 17, 2023@13:29:57 AUTHOR: EDWARD BECERRA COSIGNER: URGENCY: STATUS: COMPLETED Chief complaint: Patient is a 78 year old [place]. HPI: Pleasant male [place] here to follow up. He comes annually. He is followed by Dr Cooley for PCP and Dr. Garay, cardiology. He is also followed by community urology. He reports recent hospitalization for UTI, some medication changes noted. Otherwise now feeling well. Allergies: Patient has answered NKA The following VA and Non-VA meds were reconciled with patient. The patient was educated on the use of the medications including indication and side effects. Active and Recently Outpatient Medications (excluding Supplies): Active Outpatient Medications Status 1) DABIGATRAN ETEXILATE 150MG ORAL CAP TAKE ONE CAPSULE ACTIVE BY MOUTH EVERY 12 HOURS (ONCE OPENED, THE MEDICATION MUST BE USED WITHIN 4 MONTHS) 2) SILDENAFIL CITRATE 100MG TAB TAKE ONE TABLET BY MOUTH ACTIVE ONCE DAILY NEEDED TAKE 1 HOUR PRIOR TO SEXUAL ACTIVITY Pending Outpatient Medications Status 1) EMPAGLIFLOZIN 10MG TAB TAKE ONE TABLET BY MOUTH ONCE PENDING DAILY FOR DIABETES Active Non-VA Medications Status 1) Non-VA ATORVASTATIN CALCIUM 20MG TAB 10MG BY MOUTH ACTIVE DAILY 2) Non-VA DILTIAZEM HCL 60MG 12HR SA CAP 60MG BY MOUTH ACTIVE TWICE DAILY 3) Non-VA FINASTERIDE 5MG TAB 5MG BY MOUTH ONCE DAILY ACTIVE 4) Non-VA FUROSEMIDE 40MG TAB 40MG BY MOUTH ONCE DAILY ACTIVE 5) Non-VA LATANOPROST 0.005% OPH SOLN 1 DROP INTO EACH ACTIVE EYE AT BEDTIME 6) Non-VA LEVOTHYROXINE NA (SYNTHROID) 100MCG TAB 0.1MG ACTIVE BY MOUTH EVERY MORNING 30 MINUTES BEFORE BREAKFAST 7) Non-VA METOPROLOL TARTRATE 100MG TAB 100MG BY MOUTH ACTIVE TWICE DAILY 8) Non-VA OMEPRAZOLE 20MG EC CAP 20MG BY MOUTH EVERY ACTIVE MORNING 30 MINUTES BEFORE BREAKFAST 9) Non-VA TAMSULOSIN HCL 0.4MG CAP 0.4MG BY MOUTH AT ACTIVE BEDTIME 10) Non-VA TERAZOSIN HCL 5MG CAP 5MG BY MOUTH ONCE DAILY ACTIVE 13 Total Medications Review of Systems: Constitutional: (-)for Fevers, chills, weakness, nights sweats On examination: 97.7 F [36.5 C] (09/17/2023 12:56)121/87 (09/17/2023 12:56)72 (09/17/2023 12:56) 20 (09/17/2023 12:56)0 (09/17/2023 12:56)BMI: 27.9183 lb [83.01 kg] (09/17/2023 12:56) is alert and oriented X3 Cardiovasc: 2plus carotids without bruits, no JVD Heart Reguler rate and rhythm NL S1S2 no S3 or murmur Respiration: Normal respiratory effort, lungs clear ABD: Benign normal active bowel sounds no HSM no rebound or referred pain EXT: no clubbing, edema, or cyanosis All diagnostics from past month were reviewed with patient. Assessment/plan: Active problems - Computerized Problem List is the source for the followin. Benign Prostatic Hypertrophy with Outflow Obstruction ([facility] [id number]) - non va urology 2. CHF - Congestive Heart Failure ([facility] [id number]) - stable on EMPAGLIFLOZIN 10MG 3. Erectile dysfunction - sildenafil helpful 4. Atrial fibrillation - rate controlled w/bb, on ac 5. BP - High blood pressure - well controlled Review of medial record = 5mins Time spent with Patient including shared decision making = 20 mins Post visit documentation = 5mins Total time = 30 mins Follow up visit in 6 mos. Alert to PACT RN - Labs as necessary to address clinical status. PTSD Screening: PC-PTSD-5 A PTSD screening test (PC-PTSD-5) was negative (score=0). IN THE PAST MONTH, have you ever had any experience that was so frightening, horrible or traumatic. For example: A serious accident or fire a physical or sexual assault or abuse An earthquake or flood A war Seeing someone be killed or seriously injured Having a loved one through homicide or suicide 1. Have you ever experienced this kind of event? YES 2. Had nightmares about the event(s) or thought about the event(s) when you did not want to? NO 3. Tried hard not to think about the event(s) or went out of your way to avoid situations that reminded you of the event(s)? NO 4. Been constantly on guard, watchful, or easily startled? NO 5. [place] numb or detached from people, activities, or your surroundings? NO 6. [place] guilty or unable to stop blaming yourself or others for the event(s) or any problems the event(s) may have caused? NO Sexual Orientation: The patient thinks of their sexual orientation as: Straight or Heterosexual Medication Reconciliation: Outpatient: Has the patient been taking medications as documented in the EMLR? YES: The patient has been taking medications as documented in the EMLR. Essential Medication List for Review used to complete this medication reconciliation. INCLUDED IN THIS LIST: Alphabetical list of active outpatient prescriptions dispensed from this [place] (local) and dispensed from another [place] or [facility] facility (remote) as well as inpatient orders (local, pending and active), local clinic medications, locally documented non-VA medications, and local prescriptions that have or been discontinued in the past 90 days. - All changes in medications, including all non-VA/Herbal/OTC medications were entered into CPRS. - If there were any medications the patient should no longer take, they were discontinued. - The patient/caregiver was instructed to update this list, discard old lists, and take this list to the next appointment, whether with a VA or non-VA provider. /montse/ Edward Becerra DNP, OUTREACH CONSULTANT-BC, CNL Primary Care Nurse Practitioner Signed: 09/17/2023 13:34 EDWARD BECERRA [facility] [place] [facility] Sep 17, 2023 12:57 PM PREVENTIVE MEDICINE NURSING NOTE: LOCAL TITLE: CLINICAL REMINDERS/NURSING STANDARD TITLE: PREVENTIVE MEDICINE NURSING NOTE DATE OF NOTE: SEP 17, 2023@12:57 ENTRY DATE: SEP 17, 2023@12:57:37 AUTHOR: ROBBY VAZQUEZ COSIGNER: URGENCY: STATUS: COMPLETED Advance Directive Screen MH AD: Patient does not have a completed advance directive on file at any facility, VA or outside. S/he is not interested in completing one at this time. The patient received education about Advance Directives and written notification of his/her rights. Suicide Screen: C-SSRS Screening [place]-Suicide Severity Rating Scale (C-SSRS Screener) 1. Over the past month, have you wished you were or wished you could go to sleep and not wake up? No 2. Over the past month, have you had any actual thoughts of killing yourself? No 3. Over the past month, have you been thinking about how you might do this? Response not required due to responses to other questions. 4. Over the past month, have you had these thoughts and had some intention of acting on them? Response not required due to responses to other questions. 5. Over the past month, have you started to work out or worked out the details of how to kill yourself? Response not required due to responses to other questions. 6. If yes, at any time in the past month did you intend to carry out this plan? Response not required due to responses to other questions. 7. In your lifetime, have you ever done anything, started to do anything, or prepared to do anything to end your life (for example, collected pills, obtained a gun, gave away valuables, went to the roof but didn't jump)? No 8. If YES, was this within the past 3 months? Response not required due to responses to other questions. Homelessness/Food Insecurity Screen: In the past 2 months, have you been living in stable housing that you own, rent, or stay in as part of a household? Yes - Living in stable housing. Are you worried or concerned that in the next 2 months you may NOT have stable housing that you own, rent, or stay in as part of a household? No - Not worried about housing near future The [place] reports the following: Within the past 12 months, you worried whether your food would run out before you got money to buy more. Never true Within the past 12 months, the food you bought just didn't last and you didn't have money to get more. Never true Depression Screening: Perform PHQ-2 A PHQ-2 screen was performed. The score was 0 which is a negative screen for depression. Over the past two weeks, how often have you been bothered by the following problems? 1. Little interest or pleasure in doing things Not at all 2. Feeling down, depressed, or hopeless Not at all Falls & Incontinence Screen: Falls Screen: 4. No falls within the past year. Incontinence Screen No incontinence. Tobacco Use Screening: The patient is a former tobacco user. The patient quit fifteen or more years ago. Alcohol Use Screen (AUDIT-C): Alcohol Screen: SCREEN FOR ALCOHOL (AUDIT-C) An alcohol screening test (AUDIT-C) was negative (score=1). 1. How often did you have a drink containing alcohol in the past year? Consider a drink to be a 12 ounce can or bottle of regular beer, 8 ounces of malt liquor, a 5 ounce glass of table wine, or a 1.5 ounce shot of liquor (like scotch, gin, or vodka). Monthly or less 2. How many drinks containing alcohol did you have on a typical day when you were drinking in the past year? One or two drinks 3. How often did you have six or more drinks on one occasion in the past year? Never /es/ Robby Vazquez, Health Entertainment & Media Correspondent CHEMISTRY DEPARTMENT CHAIR,PRIMARY CARE Signed: 09/17/2023 13:00 ROBBY VAZQUEZ PA [facility] [facility] Sep 17, 2023 12:55 PM PRIMARY CARE NURSE PRACTITIONER OUTPATIENT NOTE: LOCAL TITLE: NURSE PRACTITIONER OUTPATIENT NOTE STANDARD TITLE: PRIMARY CARE NURSE PRACTITIONER OUTPATIENT NOTE DATE OF NOTE: SEP 17, 2023@12:55 ENTRY DATE: SEP 17, 2023@12:55:48 AUTHOR: EDWARD BECERRA EXP COSIGNER: URGENCY: STATUS: COMPLETED LAB CHEMISTRY & HEMATOLOGY Collection DT Specimen Test Name Result Units Ref Range 09/09/2023 13:16 PLASMA PROTIME 14.3 H sec 10.0 - 13.1 INR 1.3 09/09/2023 13:16 SERUM CREATININE, Serum 1.46 H mg/dL 0.50 - 1.40 eGFR(CKD-EPI 2020 49 L mL/min Ref: >=60 SODIUM 137 mmol/L 135 - 145 POTASSIUM 4.1 mmol/L 3.5 - 5.0 CHLORIDE 102 mmol/L 100 - 110 CO2 25 mEq/L 20 - 30 UREA NITROGEN 22 mg/dL 7 - 25 GLUCOSE 120 H mg/dL 65 - 100 PROTEIN,TOTAL 7.3 g/dL 6.0 - 8.3 ALBUMIN 4.1 g/dL 3.5 - 5.0 ALK ALY 94 U/L 40 - 150 AST 22 U/L 5 - 34 BILIRUBIN, TOTAL 1.1 mg/dL 0.2 - 1.2 CHOLESTEROL 183 mg/dL <7 - 199 TRIGLYCERIDE 76 mg/dL 0 - 150 LDL calculated 107 mg/dL 0 - 129 CHOL/HDL 3.0 ALT 22 U/L <6 - 55 HDL CHOLESTEROL 61 H mg/dL 40 - 60 09/09/2023 13:16 BLOOD WBC 6.93 K/cmm 4.50 - 11.00 RBC 5.22 M/cmm 4.23 - 5.66 HGB 16.1 g/dL 12.8 - 17 HCT 47.8 % 39.2 - 50.4 MCV 91.6 fl 82 - 99 MCH 30.8 pg 26.2 - 32.6 MCHC 33.7 g/dL 30.8 - 35.1 RDW-CV 14.1 % 12.0 - 16.0 PLT 189 K/cmm 140 - 360 /es/ Edward Becerra DNP, OUTREACH CONSULTANT-BC, CNL Primary Care Nurse Practitioner Signed: 09/17/2023 12:57 EDWARD BECERRA PA [facility]
--- OUTSIDE RECORDS SUMMARY | 2024-08-01 09:40 | XMS_ITS ---
Author Organization Maykel Levin MD Address [address] [facility] [address] [place] [phone] Care Team Providers Care Affiliate Marketing Manager Name Role Phone Maykel Levin Primary Care Provider REASON FOR VISIT HCC Risk Codes 08/07 Encounters Encounter Location Date Provider Diagnosis Maykel Levin MD [address] [facility] [address] [place] [phone] 06/12/2024 Maykel Levin Plan Of Treatment Next Appt Details Provider Name:Maykel stewart, 08/07/2024 09:00:00 AM, [address] [place] [address], [address], [phone], Provider Name:Maykel stewart, 02/05/2025 07:15:00 AM, [address] [place] [address], [address], [phone], Provider Name:Maykel Tessa Jason terry, 02/12/2025 09:30:00 AM, [address], [address], [place], [phone], Progress Notes * Madan OLIVEIRA JDOB :1945 (79 yo M)Acc No.[id number]:06/12/2024 Patient:?Charlene OLIVEIRA :1945???Age:79 Y???Sex:Male Address:[address] [place] [address], [facility] [place] [address] * * Date:?
--- OUTSIDE RECORDS SUMMARY | 2024-08-01 09:40 | XMS_ITS | Patient Health Record ---
Author Organization Maykel Levin MD Address [address] [place], [place] [id number] Care Team Providers Care Bead Forming Machine Set Up Operator Name Role Phone Maykel Levin Primary Care Provider Allergies No Known Allergies Results Component Value Reference Range Notes Lipid Panel Reviewed date:08/03/2023 12:50:16 PM Interpretation: Performing Lab:[facility], [address] [place] [phone] Notes/Report: Triglycerides 79 <150 mg/dL Desirable Triglyceride: less than 150 mg/dL Borderline High Triglyceride 150-199 mg/dL High Triglyceride: 200-499 mg/dL Very High Triglyceride: greater than or equal to 5OO mg/dL Cholesterol 165 <200 mg/dL Desirable Cholesterol: less than 200 mg/dL Borderline High Cholesterol: 200-239 mg/dL High Cholesterol: greater than 239 mg/dL LDL Cholesterol Calculated 94 <100 mg/dL Desirable LDL: less than 100 mg/dL Near Optimal/Above Optimal LDL: 110-129 mg/dL Borderline High LDL: 130-159 mg/dL High LDL: 160-189 mg/dL Very High LDL: greater than or equal to 190 mg/dL HDL Cholesterol 56 >40 mg/dL Desirable HDL: greater than 40 mg/dL Note: This HDL assay may give artificially low results in patients with liver disease. Lactic Acid Reviewed date:08/05/2023 02:56:16 PM Interpretation: Performing Lab:[address] [address] Notes/Report: Lactic Acid 1.7 0.5-2.0 mmol/L Urine Culture Reviewed date:08/08/2023 06:11:02 PM Interpretation: Performing Lab:[address] [address] Notes/Report: O:ESCCOL Escherichia coli Urine Culture Quant Urine Culture > 100,000 cfu/mL Ampicillin 4 Cefepime <=0.12 Cefuroxime 4 Gentamicin <=1 Levofloxacin <=0.12 Nitrofurantoin <=16 Trimethoprim/Sulfamethoxa zole <=20 UA ClnCatch+Micro w/rflx Cul t Reviewed date:08/05/2023 03:30:57 PM Interpretation: Performing Lab:[address] [address] Notes/Report: Urine, Clean Catch Color Urine Yellow Appearance Urine Turbid PH 5.5 5.0-9.0 Glucose Urine UA >=1000 Negative mg/dL Urine Blood Large (3+) Negative Specific [place]aver[place] - Urine 1.015 1.005-1.025 Urine Protein 30 (1+) Neg-Trace mg/dL Urine Ketones Negative Negative mg/dL Nitrite Urine Positive Negative Leukocyte Esterase Urine Large (3+) Negative RBC Urine >20 0-2 /HPF WBC Urine >50 0-5 /HPF Squamous Epithelial Cell Urine 0-2 0-2 /HPF Bacteria Urine 4+ None Seen Hyaline Casts Urine 0-2 0-2 /LPF XR chest 2V Reviewed date:08/05/2023 02:55:52 PM Interpretation: Performing Lab: Notes/Report: [address] [address] XRay Report Signed Patient: Madan Oliveira MR#: [id number] : 1945 Acct:[id number] Age/Sex: 78 / M ADM Date: 08/05/23 Loc: .ED Attending Dr: Ordering Physician: Saad Alvarado MD Date of Service: 08/05/23 Procedure(s): XR chest 2V Accession Number(s): [id number] cc: Maykel Levin MD; Saad Alvarado MD EXAMINATION: XR CHEST CLINICAL INFORMATION: Tachypnea COMPARISON: Chest radiograph 08/03/2021 TECHNIQUE: 2 views of the chest were obtained. FINDINGS: Heart size is borderline enlarged. There is atelectasis/scarring present at the left lung base. No infiltrates, pleural effusions or suspicious lung masses are seen. No evidence of CHF XR/XR chest 2V IMPRESSION: No acute intrathoracic disease Dictated By: Junaid Olivas MD Signed By: <Electronically signed by Junaid Olivas MD in OV> 08/05/23 1420 DD/ 1259 TD/TT: Water Fabricator Operator: [address] [address] XRay Report Signed Patient: Madan Oliveira MR#: [id number] : 1945 Acct:[id number] Age/Sex: 78 / M ADM Date: 08/05/23 Loc: .ED Attending Dr: Ordering Physician: Saad Alvarado MD Date of Service: 08/05/23 Procedure(s): XR chest 2V Accession Number(s): [id number] cc: Maykel Levin MD; Saad Alvarado MD EXAMINATION: XR CHEST CLINICAL INFORMATION: Tachypnea COMPARISON: Chest radiograph 08/03/2021 TECHNIQUE: 2 views of the chest were obtained. FINDINGS: Heart size is border line enlarged. There is atelectasis/scarring present at the left lung base. No infiltrates, pleural effusions or suspicious lung mass es are seen. No evidence of CHF X R/XR chest 2V IMPRESSION: No acute intrathorac ic disease Dictated By: Junaid Olivas MD Signed By: <Electronically signed by Junaid Olivas MD in OV> 08/05/23 1420 DD/ 1259 TD/TT: Buffer Automatic ist: SS Complete Blood Count no Diff Reviewed date:08/06/2023 12:28:27 PM Interpretation: Performing Lab:[facility], [address] [place] [phone] Notes/Report: White Blood Count 14.9 4.8-10.8 X10*3/uL Red Blood Count 4.35 4.60-5.80 X10*6/uL Hemoglobin 13.9 14.0-18.0 g/dl Hematocrit 41.0 42.0-52.0 % Mean Corpuscular Volume 94.3 80.0-98.0 fL Mean Corpuscular Hemoglobin 32.0 27.0-33.0 pg Mean Corpuscular HGB Conc 33.9 31.0-36.0 g/dl Red Cell Distribution Width 14.5 11.0-16.0 % Platelet Count 137 160-400 X10*3/uL Mean Platelet Volume 10.4 9.4-12.4 fL NRBC Pct Auto 0.0 0.0-0.2 /100WBC NRBC Abs Auto 0.000 0.0-0.012 X10*3/uL Basic Metabolic Panel Reviewed date:08/06/2023 12:30:12 PM Interpretation: Performing Lab:[facility], [address] [place] [phone] Notes/Report: Sodium 138 135-145 mmol/L Potassium 3.9 3.3-5.1 mmol/L Chloride 104 96-108 mmol/L Carbon Dioxide 22 22-29 mmol/L Anion Gap 16 12-20 Blood Urea Nitrogen 14 9-16 mg/dL Creatinine 1.42 0.5-1.4 mg/dL Creatinine Clr Calc Pharmacy 44.9 eGFR (calculated from the MDRD study equation) and eCrCl (calculated from the Cockcroft-Gault equation) are based on different parameters and may not yield comparable results. If eCrCl result is absurd, please check patient's height/weight. Estimated Glomerular Filt Rate 48 NOTE: For -Cambodian individuals, multiply the result by 1.210. Chronic Kidney Disease: Estimated GFR < 60 mL/min/1.73m2 Severe Kidney Disease: Estimated GFR < 15 mL/min/1.73m2 Glucose Random 100 60-115 mg/dL Calcium 9.2 8.4-10.2 mg/dL Complete Blood Count no Diff Reviewed date:08/08/2023 06:11:21 PM Interpretation: Performing Lab:[facility], [address] [place] [phone] Notes/Report: White Blood Count 13.2 4.8-10.8 X10*3/uL Red Blood Count 4.30 4.60-5.80 X10*6/uL Hemoglobin 13.4 14.0-18.0 g/dl Hematocrit 40.1 42.0-52.0 % Mean Corpuscular Volume 93.3 80.0-98.0 fL Mean Corpuscular Hemoglobin 31.2 27.0-33.0 pg Mean Corpuscular HGB Conc 33.4 31.0-36.0 g/dl Red Cell Distribution Width 14.7 11.0-16.0 % Platelet Count 124 160-400 X10*3/uL Mean Platelet Volume 10.4 9.4-12.4 fL NRBC Pct Auto 0.0 0.0-0.2 /100WBC NRBC Abs Auto 0.000 0.0-0.012 X10*3/uL Basic Metabolic Panel Reviewed date:08/08/2023 06:09:27 PM Interpretation: Performing Lab:[address] [address] Notes/Report: Sodium 136 135-145 mmol/L Potassium 3.7 3.3-5.1 mmol/L Chloride 107 96-108 mmol/L Carbon Dioxide 19 22-29 mmol/L Anion Gap 14 12-20 Blood Urea Nitrogen 15 9-16 mg/dL Creatinine 1.06 0.5-1.4 mg/dL Creatinine Clr Calc Pharmacy 60.1 eGFR (calculated from the MDRD study equation) and eCrCl (calculated from the Cockcroft-Gault equation) are based on different parameters and may not yield comparable results. If eCrCl result is absurd, please check patient's height/weight. Estimated Glomerular Filt Rate > 60 NOTE: For -Cambodian individuals, multiply the result by 1.210. Chronic Kidney Disease: Estimated GFR < 60 mL/min/1.73m2 Severe Kidney Disease: Estimated GFR < 15 mL/min/1.73m2 Glucose Random 88 60-115 mg/dL Calcium 8.9 8.4-10.2 mg/dL Complete Blood Count no Diff Reviewed date:08/08/2023 06:11:43 PM Interpretation: Performing Lab:[address] [address] Notes/Report: White Blood Count 7.4 4.8-10.8 X10*3/uL Red Blood Count 4.16 4.60-5.80 X10*6/uL Hemoglobin 13.7 14.0-18.0 g/dl Hematocrit 38.8 42.0-52.0 % Mean Corpuscular Volume 93.3 80.0-98.0 fL Mean Corpuscular Hemoglobin 32.9 27.0-33.0 pg Mean Corpuscular HGB Conc 35.3 31.0-36.0 g/dl Red Cell Distribution Width 14.5 11.0-16.0 % Platelet Count 144 160-400 X10*3/uL Mean Platelet Volume 10.6 9.4-12.4 fL NRBC Pct Auto 0.0 0.0-0.2 /100WBC NRBC Abs Auto 0.000 0.0-0.012 X10*3/uL Basic Metabolic Panel Reviewed date:08/08/2023 06:05:33 PM Interpretation: Performing Lab:[address] [address] Notes/Report: Sodium 137 135-145 mmol/L Potassium 3.9 3.3-5.1 mmol/L Chloride 106 96-108 mmol/L Carbon Dioxide 21 22-29 mmol/L Anion Gap 14 12-20 Blood Urea Nitrogen 15 9-16 mg/dL Creatinine 1.02 0.5-1.4 mg/dL Creatinine Clr Calc Pharmacy 62.5 eGFR (calculated from the MDRD study equation) and eCrCl (calculated from the Cockcroft-Gault equation) are based on different parameters and may not yield comparable results. If eCrCl result is absurd, please check patient's height/weight. Estimated Glomerular Filt Rate > 60 NOTE: For -Cambodian individuals, multiply the result by 1.210. Chronic Kidney Disease: Estimated GFR < 60 mL/min/1.73m2 Severe Kidney Disease: Estimated GFR < 15 mL/min/1.73m2 Glucose Random 113 60-115 mg/dL Calcium 9.4 8.4-10.2 mg/dL Magnesium Reviewed date:08/08/2023 06:00:06 PM Interpretation: Performing Lab:[address] [address] Notes/Report: Magnesium 2.0 1.6-2.6 mg/dL Blood Culture (First) Reviewed date:08/14/2023 06:30:13 PM Interpretation: Performing Lab:[address] [address] Notes/Report: Blood Culture (First) No growth after 5 days. Blood Culture (Second) Reviewed date:08/14/2023 06:30:03 PM Interpretation: Performing Lab:[address] [address] Notes/Report: Blood Culture (Second) No growth after 5 days. XR chest 1V Reviewed date:08/08/2023 06:00:37 PM Interpretation: Performing Lab: Notes/Report: [address] [address] XRay Report Signed Patient: Madan Oliveira MR#: [id number] : 1945 Acct:[id number] Age/Sex: 78 / M ADM Date: 08/05/23 Loc: [facility] 459-[address]: Queenie Lockett MD Ordering Physician: Queenie Lockett MD Date of Service: 08/08/23 Procedure(s): XR chest 1V Accession Number(s): [id number] cc: Maykel Levin MD; Queenie Lockett MD EXAMINATION: XR CHEST CLINICAL INFORMATION: Atrial fibrillation. COMPARISON: Chest radiograph 08/05/2023. TECHNIQUE: Frontal view of the chest was obtained. FINDINGS: Stable cardiomediastinal silhouette. No focal airspace opacities, pleural effusion or pneumothorax. No evidence of pulmonary edema. No acute osseous findings. Visualized upper abdomen is within normal limits. EKG wires overlie the chest. XR/XR chest 1V IMPRESSION: No acute cardiopulmonary findings. Dictated By: Kay Nolan Signed By: <Electronically signed by Kay Nolan in OV> 08/08/23 1211 DD/ 1152 TD/TT: Water Fabricator Operator: [address] [address] XRay Report Signed Patient: Madan Oliveira MR#: [id number] : 1945 Acct:[id number] Age/Sex: 78 / M ADM Date: 08/05/23 Loc: [facility] 459-[address]: Darren Lockett MD Ordering Physician: Queenie Lockett MD Date of Service: 08/08/23 Procedure(s): XR chest 1V Accession Number(s): [id number] cc: Maykel Levin MD; Queenie Lockett MD EXAMINATION: XR CHEST CLINICAL INFORMATION: Atrial fibrillation. COMPARISON: Chest radiograph 08/05/2023. TECHNIQUE: Frontal view of the chest was obtained. FINDINGS: Stable cardiomediast inal silhouette. No focal airspace opacities, pleural effusion or pneumothorax. No evidence of pulmonary edema. No acute osseous findin gs. Visualized upper abdomen is within normal limits. EKG wires ov erlie the chest. X R/XR chest 1V IMPRESSION: No acute cardiopulmo nary findings. Dictated By: Kay Nolan Signed By: <Electronically signed by Kay Nolan in OV> 08/08/23 1211 DD/ 1152 TD/TT: Water Fabricator Operator: Electrolytes Reviewed date:08/10/2023 12:35:10 PM Interpretation: Performing Lab:[facility], [address] [place] [phone] Notes/Report: Sodium 140 135-145 mmol/L Potassium 3.7 3.3-5.1 mmol/L Chloride 105 96-108 mmol/L Carbon Dioxide 23 22-29 mmol/L Anion Gap 16 12-20 Magnesium Reviewed date:08/10/2023 12:34:42 PM Interpretation: Performing Lab:[facility], [address] [place] [phone] Notes/Report: Magnesium 2.0 1.6-2.6 mg/dL Troponin-I High Sensitivity Reviewed date:08/10/2023 12:34:51 PM Interpretation: Performing Lab:[facility], [address] [place] [phone] Notes/Report: Troponin-I High Sensitivity 72.1 <3.5-35.0 ng/L The [place] high sensitivity Troponin-I results should be used in conjunction with other diagnostic information such as ECG, clinical observations and information, and patient symptoms to aid in the diagnosis of CT. Urinalysis and Microscopic Reviewed date:09/06/2023 02:28:36 PM Interpretation: Performing Lab:[facility], [address] [place] [phone] Notes/Report: Color Urine Yellow Appearance Urine Clear PH 6.0 5.0-9.0 Glucose Urine UA >=1000 Negative mg/dL Urine Blood Negative Negative Specific Tavernier - Urine 1.015 1.005-1.025 Urine Protein Negative Neg-Trace mg/dL Urine Ketones Negative Negative mg/dL Nitrite Urine Negative Negative Leukocyte Esterase Urine Negative Negative RBC Urine 0-2 0-2 /HPF WBC Urine 0-5 0-5 /HPF Squamous Epithelial Cell Urine 0-2 0-2 /HPF Bacteria Urine None Seen None Seen Hyaline Casts Urine 0-2 0-2 /LPF Urine Culture Reviewed date:09/09/2023 12:06:07 PM Interpretation: Performing Lab:[facility], [address] [place] [phone] Notes/Report: Urine Culture No growth. XR chest 2V Reviewed date:11/11/2023 04:52:45 PM Interpretation: Performing Lab: Notes/Report: [address] [address] XRay Report Signed Patient: Madan Oliveira MR#: [id number] : 1945 Acct:[id number] Age/Sex: 78 / M ADM Date: 11/11/23 Loc: [facility] Attending Dr: Ciera Mendoza SLIPCOVER CUTTER Ordering Physician: Magaly Joyce Date of Service: 11/11/23 Procedure(s): XR chest 2V Accession Number(s): [id number] cc: Maykel Levin MD; Magaly Joyce EXAMINATION: XR CHEST CLINICAL INFORMATION: Pneumonia COMPARISON: Radiograph from 08/08/2023 TECHNIQUE: 2 views of the chest were obtained. FINDINGS: Left basilar atelectasis. No pneumothorax. Trachea is midline. Cardiac mediastinal silhouette is stable. No large pleural effusion. Dextrocurvature of the mid to lower thoracic spine with anterior bridging osteophytes of the thoracolumbar spine. Soft tissues are unremarkable. XR/XR chest 2V IMPRESSION: Left basilar atelectasis. Dictated By: Renée Jackman MD Signed By: <Electronically signed by Renée Jackman MD in OV> 11/11/23 1249 DD/ 1128 TD/TT: Water Fabricator Operator: [place] [address] XRay Report Signed Patient: Madan Oliveira MR#: [id number] : 1945 Acct:[id number] Age/Sex: 78 / M ADM Date: 11/11/23 Loc: [facility] Attending Dr: Jeanie Mendoza SLIPCOVER CUTTER Ordering Physician: Magaly Joyce Date of Service: 11/11/23 Procedure(s): XR chest 2V Accession Number(s): [id number] cc: Maykel Levin MD; Magaly Joyce EXAMINATION: XR CHEST CLINICAL INFORMATION: Pneumonia COMPARISON: Radiograph from 08/08/2023 TECHNIQUE: 2 views of the chest were obtained. FINDINGS: Left basilar atelect asis. No pneumothorax. Trachea is midline. Cardiac mediastinal silhouet te is stable. No large pleural effusion. Dextrocurvature of t he mid to lower thoracic spine with anterior bridging osteophytes of the thoracolumbar spine. Soft tissues are unremarkable. X R/XR chest 2V IMPRESSION: Left basilar atelectasis. Dictated By: Sa kirill Jackman MD Signed By: <Electronically signed by Renée Jackman MD in OV> 11/11/23 1249 DD/ 1128 TD/TT: Water Fabricator Operator: Thyroid Stimulating Hormone Reviewed date:02/03/2024 12:34:02 PM Interpretation: Performing Lab:[facility], [address] [place] [phone] Notes/Report: Thyroid Stimulating Hormone 0.77 0.32-4.0 uIU/mL TSH 3rd Generation ([facility]) Reason For Referral No Information Medications Medication SIG (Take, Route, Frequency, Duration) Notes Start Date End Date Status Atorvastatin Calcium 10 MG TAKE 1 TABLET DAILY for 90 Active Cialis 20 MG 1 tablet Orally for 30 day(s) 12/25/2010 Not-Taking Latanoprost 0.005 % 1 drop into affected eye in the evening Ophthalmic Once a day Active Clobetasol Propionate 0.05 % 1 application to affected area Externally Twice a day for 14 days 08/30/2012 Not-Taking dilTIAZem HCl 120 MG as directed Orally qd Active Xopenex HFA 45 MCG/ACT 1 puff as needed Inhalation every 6 hrs Not-Takin g Finasteride 5 MG 1 tablet Orally Once a day for 30 day(s) Active Tamsulosin HCl 0.4 MG TAKE 1 CAPSULE BY MOUTH EVERY DAY Active Jardiance 10 MG 1 tablet Orally Once a day for 30 day(s) Active Ventolin HFA * 108 (90 Base) MCG/ACT 2 puffs as needed Inhalation every 4 hrs for 30 day(s) 06/13/2015 Not-Taking Furosemide 40 MG alternating 40mg and 20mg Orally Active Omeprazole 20 MG 1 capsule 30 minutes before morning meal Orally Once a day for 30 day(s) Active Terazosin HCl 5 MG 1 capsule at bedtime Orally Once a day Not-Taking Levoxyl 100 MCG take 1 tablet every morning on an empty stomach Orally Once a day for 90 days Active Pradaxa 150 MG 1 capsule Orally Twi ce a day Active Metoprolol Succinate ER 100 MG 1 tablet Orally Once a day Active Albuterol Sulfate HFA 108 (90 Base) MCG/ACT inhale 1 puff into the lungs every 4 hours for 30 days Inhalation every 4 hrs for 90 days Active Immunizations Vaccine Route Administration Date Status Comme nts Flu Vaccine IM Intramuscular 12/16/2010 Administered Tetanus Unknown 10/04/2006 Administered Flu Vaccine IM Intramuscular 12/08/2011 Administered Shingles IM Intramuscular 02/02/2012 Administered Flu Vaccine IM Intramuscular 01/06/2013 Administered PPSV23 (Pnemovax) IM Intramuscular 10/16/2013 Administered Fluarix Quadrivalent IM Intramuscular 01/02/2014 [place] red Fluarix Quadrivalent IM Intramuscular 12/18/2014 [place] red Prevnar 13 IM Intramuscular 04/30/2015 Administered Fluarix Quadrivalent IM Intramuscular 12/03/2015 [place] red Fluarix Quadrivalent IM Intramuscular 12/14/2016 [place] red TDaP IM Intramuscular 05/03/2017 Administered Fluarix Quadrivalent IM Intramuscular 12/20/2017 [place] red Influenza High Dose IM Intramuscular 01/03/2019 Administer ed PPSV23 (Pnemovax) IM Intramuscular 01/12/2019 Administered Influenza High Dose Unknown 12/15/2019 Administered [facility] Influenza High Dose IM Intramuscular 12/09/2020 Administer ed SARS-COV-2 Moderna Unknown 04/15/2020 Administered SARS-COV-2 Moderna Unknown 05/13/2020 Administered SARS-COV-2 Moderna Unknown 2021 Administered SARS-COV-2 Moderna Unknown 01/01/2022 Administered Influenza High Dose Unknown 01/22/2022 Administered SARS-COV-2 Moderna Unknown 01/02/2023 Administered [facility] Influenza High Dose Unknown 01/11/2024 Administered SARS-COV-2 Pfizer Unknown 02/01/2024 Administered [facility] Social History Tobacco Use: Social History Observation [...] Patient states smoke s an occasional cigar. 08-21-11 Patient states smoke s an occasional cigar. 08-21-11 Patient states smoke s an occasional cigar. 08-21-11 Patient states smoke s an occasional cigar. 08-21-11 Patient states smoke s an occasional cigar. 08-21-11 Patient states smoke s an occasional cigar. 08-21-11 Patient states smoke s an occasional cigar. 08-21-11 Patient states smoke s an occasional cigar. 08-21-11 Patient states smoke s an occasional cigar. 08-21-11 Patient states smoke s an occasional cigar. 08-21-11 Patient states smoke s an occasional cigar. 08-21-11 Patient states smoke s an occasional cigar. 08-21-11 Patient states smoke s an occasional cigar. 08-21-11 Patient states smoke s an occasional cigar. Problems Problem Type SNOMED Code ICD Code Onset Dates Problem Status W/U Status Risk Notes Problem Erectile dysfunction (970890502) Erectile Dysfunction (607.84) Active confirmed Problem 19972661 Prostatism (N40.0) Active confirmed Problem 68438526 Hypercalcemia (E83.52) Active confirme d Problem 440170862 Chronic atrial fibrillation (I48.2) Active confirmed Problem Ascites (693039456) Other ascites (R18.8) Active confirmed Problem 3783634 Diastolic dysfun ction (I51.9) Active confirmed Problem 200181383 Tubular adenoma of colon (D12.6) Active confirmed Problem 28157155 Essential hypert ension (I10) Active confirmed Problem 014579833 Acquired hypothy roidism (E03.9) Active confirmed Problem 46725830 Monocytosis (D72.821) Active confirmed Problem 739340268 Chronic a-fib (I48.2) Active confirme d Problem Acute diastolic heart failure (432091116) Acute diastolic congestive heart failure (I50.31) Active confirmed Problem 113744124 Pure hypercholesterolemia (E78.00) Active confirmed Problem Acute asthma (034735881) Acute asthma (J45.909) Active confirmed Problem 322719736 BMI 30.0-30.9,ad ult (Z68.30) Active confirmed Problem Tomography - chest abnormal (793700854) Abnormal CT scan, chest (R93.89) Active confirmed Problem 343828459 Chronic atrial fibrillation, unspecified (I48.20) Active confirmed Problem 081463927 Chronic atrial fibrillation (I48.20) Active confirmed Vital Signs Blood pressure diastolic 86 mm Hg 02/08/2024 phil ght is up 8 pounds since 08-19-23 Height 66 in 02/08/2024 weight is up 8 pounds since 08-19-23 Blood pressure systolic 114 mm Hg 02/08/2024 weig ht is up 8 pounds since 08-19-23 Weight 182 lbs 02/08/2024 weight is up 8 pounds since 08-19-23 BMI 29.37 kg/m2 02/08/2024 weight is up 8 pounds since 08-19-23 Encounters Encounter Location Date Provider Diagnosis Maykel Levin MD [address] [place] [id number] 08/05/2023 Maykel Levin Septicemia A41.9 Maykel Levin MD [address] [place] [id number] 08/19/2023 Maykel Levin Septicemia A41.9 Maykel Levin MD [address] [place] [id number] 02/08/2024 Maykel Levin Essential hypertensi on I10 ; Encounter for general adult medical examination without abnormal findings Z00.00 ; Prostatism N40.0 ; Acute diastolic congestive heart failure I50.31 ; Acquired hypothyroidism E03.9 ; Pure hypercholesterolemia E78.00 and Chronic atrial fibrillation I48.20 Maykel Levin MD [address] [id number] 06/12/2024 Maykel Levin MD [address] [place] [id number] 08/11/2023 Maykel Levin MD [address] [place] [address] [address] [id number] 11/19/2023 Maykel Levin Acute asthma J45.909 Assessments Encounter Date Diagnosis (ICD Code) Assessment Notes Treatment Notes Treatment Clinical Notes Section Notes 08/05/2023 Septicemia (ICD-10 - A41.9) sending him to er by ambulance spoke to er doctor 08/19/2023 Septicemia (ICD-10 - A41.9) is doing well and recovered./ will have some antibiotic at home in case he gets dyuria order given to the patient, Total time spent on the date of the encounter is 35 minutes including both face to face time spent and time spent reviewing documentation , pertinent data, and counseling the patient. 02/08/2024 Essential hypertensi on (ICD-10 - I10) well controlled, will continue current regiment 02/08/2024 Encounter for genera l adult medical examination without abnormal findings (ICD-10 - Z00.00) Labs reviewed and discussed with patient 11/19/2023 Acute asthma (ICD-10 - J45.909) 02/08/2024 Prostatism (ICD-10 - N40.0) doing well. [...] fibrillation (ICD-10 - I48.20) Plan Of Treatment Pending Test Test Name Order Date XR CHEST 2 VIEW PA & LAT 07/25/2021 US RENAL BILATERAL 03/02/2017 US abdomen complete 08/05/2021 Next Appt Details Provider Name:Maykel Jason ier, 08/07/2024 09:00:00 AM, [address] [place] [address], [address], [phone], Provider Name:Maykel Jason ier, 02/05/2025 07:15:00 AM, [address] [place] [address], [address], [phone], Provider Name:Maykel Jason ier, 02/12/2025 09:30:00 AM, [address] [place] [address], [address], [phone], Insurance Providers Payer Name Payer Address Payer Phone Subscriber Number Group Number Insured Name Patient Relationship to Insured Coverage Start Date Coverage End Date [employer] PLAN [address] [place] [phone] [id number] Madan Barrios Self - patient is the insured [employer] [address] [place] [address] [id number] Madan Barrios Self - patient is the insured Medical (General) History Medical History History ICD Code Colonoscopy 2006; colonoscop y and endoscopy done 01/15/2012; colonoscopy by Dr. Dickey 03/11/17 - no more indicated
--- OUTSIDE RECORDS SUMMARY | 2024-08-01 09:40 | XMS_ITS | Encounter Summary ---
Author Name [facility] Organization [facility] Address [address] [place] [address] Care Team Providers Care Football Scout Name Role Phone ALYSON STINSON Primary Care Provider [facility] Insurance Providers: All historical [...] Saab's Name Patient's Relationship to Policy Saab [facility] ([facility]) MEDICARE ADVANTAGE [facility] ([facility]) Mar 29, 2016 [id number] PATIENT Selected Encounter This section includes the information on record at MD for the Encounter. Date/Time Encounter Type Encounter Description Reason Pro vider Source Jun 14, 2024 04:59 PM Outpatient Encounter ADMIN PAT ACTIVTIES (MASNONCT) IHE Encounter Template Text not used by MD Plan of Treatment: Future Appointments (+ 6 months) and Future Tests (+/- 45 days) The Plan of Treatment section includes future care activities for the patient from all [facility] treatmentfacilities. This section includes future appointments and future orders which are active, pending or scheduled. Future Appointments This section includes appointments that were scheduled to occur 6 months from the date of the Encounter, up to a maximum of 20 appointments. The data comes from all [facility] treatment facilities. Appointment Date/Time Appointment Type Appointme nt Facility Name Sep 15, 2024 01:00 PM AMBULATORY - MEDICINE [facility] [place] [facility] Encounter Notes: All associated encounter notes This section contains the clinical notes associated to the Encounter. Date/Time Encounter Note(s) Provider Source Jun 14, 2024 04:59 PM ADMINISTRATIVE NOT E: LOCAL TITLE: HAS ADMINISTRATIVE NOTE STANDARD TITLE: ADMINISTRATIVE NOTE DATE OF NOTE: JUN 14, 2024@16:59 ENTRY DATE: JUN 14, 2024@16:59:47 AUTHOR: JEROD MENDEZ EXP COSIGNER: URGENCY: STATUS: COMPLETED 1ST ATTEMPT TO CONTACT PT ON PHONE NUMBER ON FILE TO SCHEDULE NEW PT PCP APPT PER NEAR LIST. LEFT VM FOR PT TO CONTACT THE ENROLLMENT OFFICE @ [phone]. NCL SENT AND EXPIRES 06/28/2024 /montse/ JEROD MENDEZ ADVANCED HEAVY EQUIPMENT MECHANIC Signed: 06/14/2024 16:[address] [facility]
[2024-08-01 14:25] LABS: Alanine Aminotransferase 20 U/L (0-40); Albumin Level 4.3 g/dL (3.5-5.0); Aspartate Amino Transferase 26 U/L (5-37); Bilirubin Direct 0.5 mg/dL (0.0-0.5); Bilirubin Total 1.7 mg/dL (0.0-1.0); Cholesterol 185 mg/dL (<200); HDL Cholesterol 62 mg/dL (>40); LDL Cholesterol Calculated 104 mg/dL (<100); Triglycerides 95 mg/dL (<150)
[2024-08-01 18:18] LABS: Alkaline Phosphatase 71 U/L (39-117)
== END 2024-08-01 09:00 | disposition home or self-care (01) ==
LOC: HO.WFDLDS 08:59
PROVIDERS: Visit Provider Internal Medicine
DX: E78.00 Pure hypercholesterolemia, unspecified (principal)
CPT/HCPCS: 36415; 80061; 80076

== ENCOUNTER → 2024-08-07 10:57 | Outpatient (REF) | payer MEDICARE, SELFPAY ==
--- NOTE | 2024-08-07 11:01 | CA_ITS ---
Transthoracic Echocardiogram Patient (Last, First, Middle): Madan Oliveira, Gender: Male Date of : 1945 Age: 79 Procedure Date: 08/07/2024 Procedure Type: Transthoracic Echocardiogram Location: OP Height: 175.26 cm Weight: 80.74 kg BSA: 1.97 m2 Heart Rate: 93 bpm BP: 110 / 64 mmHg Nanotechnologist: SAM Referring MD: Miguel A Garay MD Snack Bar Attendant: Miguel A Garay MD Symptoms: I50.30 - Unspecified diastolic (congestive) heart failure Study Quality: Fair ECG Rhythm: Atrial Fibrillation Conclusions: - 1. Normal LV ejection fraction of 60-65% 2. Dilated right-sided chambers with reduced RV systolic function 3. Mild left atrial enlargement 4. Upper limits of normal ascending aortic size 5. No significant abnormality of cardiac valvular Dopplers 6. Normal RV systolic pressure 7. No gross pericardial effusion Findings Left Ventricle Normal left ventricular size, thickness, and systolic function. The visually estimated ejection fraction is between 60-65%. Diastolic function is indeterminate on the basis of available data. Right Ventricle Moderately increased right ventricular cavity size. There is mild to moderately decreased right ventricular systolic function. Atria The left atrium is mildly dilated. Interatrial shunt cannot be excluded. The right atrium is moderately dilated. Aortic Valve There is mild calcification of the aortic valve. There is no aortic valve stenosis. There is no aortic valve regurgitation. Mitral Valve There is mild anterior and posterior mitral leaflet thickening. There is trace mitral valve regurgitation. There is no mitral valve stenosis. Pulmonic Valve The pulmonic valve was not well visualized. Tricuspid Valve Likely normal tricuspid valve structure and function. There is trace tricuspid valve regurgitation. The right ventricular systolic pressure is normal. The right ventricular systolic pressure is 17 mmHg. Normal right atrial pressure. There is no evidence of pulmonary hypertension. Great Vessels The pulmonary artery was not well visualized. Venous The inferior vena cava is normal in size and collapses greater than 50% with inspiration. Pericardium/Pleural There is no evidence of pericardial effusion. Prior Study Comparison No significant change compared to prior study dated: 08/09/2023. Measurements 2D Linear Measurements IVSd: 0.99 0.6-0.9/0.6-1.0 cm LVIDd: 3.24 3.9-5.3/4.2-5.9 cm LVIDd Index: 1.64 2.4-3.2/2.2-3.1 cm/m2 LVPWd: 0.75 0.7-1.1 cm LA Diam: 4.50 2.7-3.8/3.0-4.0 cm LAIDs Index: 2.28 1.5-2.3 cm/m2 LV Mass: 93.54 67-162/88-224 g LV Mass Index: 47.48 43-95/49-115 g/m2 LVOT Diam: 2.00 3.0+(-)1.3 cm 2D Systolic Function EF 4C: 52.90 >55% EF 2C: 70.30 >55% EF BiP: 63.10 >55% Mitral Valve MV Pk E: 0.63 MV Decel Time: 176.00 E'Lateral: 11.40 E'Medial: 7.07 E/E' Med: 8.90 E/E' Lat: 5.50 Aortic Valve AoV Pk David: 0.89 AoV Pk Grad: 3.00 ANA: 2.30 LVOT LVOT Pk David: 0.65 LVOT Mn David: 0.47 LVOT VTI: 0.14 LVOT Pk Grad: 2.00 LVOT Mn Grad: 1.00 LVOT Diam: 2.00 LVOT Area: 3.14 Diastolic Function MV Pk E: 0.63 E'Medial: 7.07 E/E' Med: 8.90 E' Laterial: 11.40 E/E' Lat: 5.50 Right Ventricle TAPSE (mm): 14.60 TVS' David: 9.70 Tricuspid Valve TR Pk David: 1.86 TR Pk Grad: 14.00 RA Press: 3.00 RVSP: 17.00 Great Vessels Aorta Sinus of Valsalva: 3.10 2.0-3.5 cm Ao Asc: 3.60 2.1-3.4 cm Pulmonary Valve PV Pk David: 0.88 Peak PV Grad: 3.00 Updated in Other Vendor System with Status of Final Miguel A Garay MD electronically signed on 08/08/2024 12:17:21 PM with status of Final
--- OUTSIDE RECORDS SUMMARY | 2024-08-07 11:40 | XMS_ITS ---
Author Organization Maykel Levin MD Address [address] [place] [phone] Care Team Providers Care Forestry Patrolman Name Role Phone Maykel Levin Primary Care Provider [phone] Results Component Value Reference Range Notes Liver Panel Reviewed date:08/02/2024 05:36:26 PM Interpretation: Performing Lab:[facility], [address] [place] [phone] Notes/Report: Bilirubin Total 1.7 0.0-1.0 mg/dL Slight Icte morena. Bilirubin Direct 0.5 0.0-0.5 mg/dL Slight Ict erus. Aspartate Amino Transferase 26 5-37 U/L Alanine Aminotransferase 20 0-40 U/L Total Protein 7.0 6.5-8.0 g/dL Albumin Level 4.3 3.5-5.0 g/dL Alkaline Phosphatase 71 39-117 U/L REASON FOR VISIT fasting lipids Encounters Encounter Location Date Provider Diagnosis Maykel Levin MD [address] [facility] [address] [place], [place] [phone] 07/31/2024 Maykel Levin Pure hypercholestero lemia E78.00 Assessments Encounter Date Diagnosis (ICD Code) Assessment Notes Treatment Notes Treatment Clinical Notes Section Notes 07/31/2024 Pure hypercholesterolemia (ICD-10 - E78.00) Plan Of Treatment Pending Test Test Name Order Date Lipid Panel with Reflex 07/31/2024 Next Appt Details Provider Name:Maykel Jason ier, 02/05/2025 07:15:00 AM, [address] [facility], [address], [place], [place], [phone], Provider Name:Maykel Jason ierussell, 02/12/2025 09:30:00 AM, [address] [place] [address], [address], [place], [place], [phone], Progress Notes * Madan OLIVEIRA JDOB :1945 (79 yo M)Acc No.[id number]:07/31/2024 Progress Note Patient:?MOILAMONTECharlene HALL dena Little Provider:?Maykel Levin MD :1945???Age:79 Y???Sex:Male Randy e:07/31/2024 Address:[address] [place], [place] [phone] Subjective: * Chief Complaints: * ???1. Fasting [...] MD Date:?0 07/31/2024 Generated for Wilmer salazar/Tequila/eTransmitting on:?08/07/2024 11:40 AM EDT
--- OUTSIDE RECORDS SUMMARY | 2024-08-07 11:41 | XMS_ITS | Patient Health Record ---
Author Organization Maykel Levin MD Address [address] [place], [place] [id number] Care Team Providers Care Tree Driller Name Role Phone Maykel Levin Primary Care Provider Allergies No Known Allergies Results Component Value Reference Range Notes Complete Blood Count no Diff Reviewed date:08/08/2023 06:11:43 PM Interpretation: Performing Lab:[facility], [address] [place] [phone] Notes/Report: White Blood Count 7.4 4.8-10.8 X10*3/uL [...] Panel Reviewed date:08/08/2023 06:05:33 PM Interpretation: Performing Lab:[facility], [address] [place] [phone] Notes/Report: Sodium 137 135-145 mmol/L Potassium 3.9 [...] Glomerular Filt Rate > 60 NOTE: For [place] Citizen individuals, multiply the result by 1.210. Chronic Kidney Disease: Estimated GFR < 60 mL/min/1.73m2 Severe Kidney Disease: Estimated GFR < 15 mL/min/1.73m2 Glucose Random 113 60-115 mg/dL Calcium 9.4 8.4-10.2 mg/dL Magnesium Reviewed date:08/08/2023 06:00:06 PM Interpretation: Performing Lab:[facility], [address] [place] [phone] Notes/Report: Magnesium 2.0 1.6-2.6 mg/dL Blood Culture (First) Reviewed date:08/14/2023 06:30:13 PM Interpretation: Performing Lab:[facility], [address] [place] [phone] Notes/Report: Blood Culture (First) No growth after 5 days. Blood Culture (Second) Reviewed date:08/14/2023 06:30:03 PM Interpretation: Performing Lab:[facility], [address] [place] [phone] Notes/Report: Blood Culture (Second) No growth after 5 days. XR chest 1V Reviewed date:08/08/2023 06:00:37 PM Interpretation: Performing Lab: Notes/Report: [address] [address] XRay Report Signed Patient: Madan Oliveira MR#: [id number] : 1945 Acct:[id number] Age/Sex: 78 / M ADM Date: 08/05/23 Loc: [facility] 459-[address]: Queenie Lockett MD Ordering Physician: Queenie Lockett MD Date of Service: 08/08/23 Procedure(s): XR chest 1V Accession Number(s): [id number] cc: Maykel Levin MD; Queenie Lockett MD [...] in OV> 08/08/23 1211 DD/ 1152 TD/TT: Digital Data Analyst: [address] [address] XRay Report Signed Patient: Madan Oliveira MR#: [id number] : 1945 Acct:[id number] Age/Sex: 78 / M ADM Date: 08/05/23 Loc: [facility] 459-[address]: Darren Lockett MD Ordering Physician: Queenie Lockett MD Date of Service: 08/08/23 Procedure(s): XR chest 1V Accession Number(s): [id number] cc: Maykel Levin MD; Queenie Lockett MD [...] in OV> 08/08/23 1211 DD/ 1152 TD/TT: Digital Data Analyst: Electrolytes Reviewed date:08/10/2023 12:35:10 PM Interpretation: Performing Lab:[address] [phone] Notes/Report: Sodium 140 135-145 mmol/L Potassium 3.7 3.3-5.1 mmol/L Chloride 105 96-108 mmol/L Carbon Dioxide 23 22-29 mmol/L Anion Gap 16 12-20 Magnesium Reviewed date:08/10/2023 12:34:42 PM Interpretation: Performing Lab:[facility], [address] [place] [phone] Notes/Report: Magnesium 2.0 1.6-2.6 mg/dL Troponin-I High Sensitivity Reviewed date:08/10/2023 12:34:51 PM Interpretation: Performing Lab:[facility], [address] [place] [phone] Notes/Report: Troponin-I High Sensitivity 72.1 <3.5-35.0 ng/L The [place] high sensitivity Troponin-I results should be used in conjunction with other diagnostic information such as ECG, clinical observations and information, and patient symptoms to aid in the diagnosis of NE. Urinalysis and Microscopic Reviewed date:09/06/2023 02:28:36 PM Interpretation: Performing Lab:[facility], [address] [place] [phone] Notes/Report: Color Urine Yellow Appearance Urine Clear PH 6.0 5.0-9.0 Glucose Urine UA >=1000 Negative mg/dL Urine Blood Negative Negative Specific [place] - Urine 1.015 1.005-1.025 Urine Protein Negative Neg-Trace mg/dL Urine Ketones Negative Negative mg/dL Nitrite Urine Negative Negative Leukocyte Esterase Urine Negative Negative RBC Urine 0-2 0-2 /HPF WBC Urine 0-5 0-5 /HPF Squamous Epithelial Cell Urine 0-2 0-2 /HPF Bacteria Urine None Seen None Seen Hyaline Casts Urine 0-2 0-2 /LPF Urine Culture Reviewed date:09/09/2023 12:06:07 PM Interpretation: Performing Lab:[facility], [address] [place] [phone] Notes/Report: Urine Culture No growth. XR chest 2V Reviewed date:11/11/2023 04:52:45 PM Interpretation: Performing Lab: Notes/Report: [address] [address] XRay Report Signed Patient: Madan Oliveira MR#: [id number] : 1945 Acct:[id number] Age/Sex: 78 / M ADM Date: 11/11/23 Loc: [facility] Attending Dr: Ciera Mendoza NP Ordering Physician: Magaly Joyce Date of Service: 11/11/23 Procedure(s): XR chest 2V Accession Number(s): [id number] cc: Maykel Levin MD; Magaly Joyce EXAMINATION: [...] in OV> 11/11/23 1249 DD/ 1128 TD/TT: Digital Data Analyst: [address] [place] [address] XRay Report Signed Patient: Madan Oliveira MR#: [id number] : 1945 Acct:[id number] Age/Sex: 78 / M ADM Date: 11/11/23 Loc: .[facility] Attending Dr: Jeanie Mendoza POT FL[employer]ER Ordering Physician: Magaly Joyce Date of Service: 11/11/23 Procedure(s): XR chest 2V Accession Number(s): [id number] cc: Maykel Levin MD; Magaly Joyce EXAMINATION: [...] Jackman MD Signed By: <Electronically signed by Samer MD Augustina in OV> 11/11/23 1249 DD/ TD/TT: Digital Data Analyst: Thyroid Stimulating Hormone Reviewed date:02/03/2024 12:34:02 PM Interpretation: Performing Lab:[facility], [address] [place] [phone] Notes/Report: Thyroid Stimulating Hormone 0.77 0.32-4.0 uIU/mL TSH 3rd Generation ([facility]) Lipid Panel Reviewed date:08/02/2024 05:36:51 PM Interpretation: Performing Lab:[facility], [address] [place] [phone] Notes/Report: Triglycerides 95 <150 mg/dL Desirable Triglyceride: less than 150 mg/dL Borderline High Triglyceride 150-199 mg/dL High Triglyceride: 200-499 mg/dL Very High Triglyceride: greater than or equal to 5OO mg/dL Cholesterol 185 <200 mg/dL Desirable Cholesterol: less than 200 mg/dL Borderline High Cholesterol: 200-239 mg/dL High Cholesterol: greater than 239 mg/dL LDL Cholesterol Calculated 104 <100 mg/dL Desirable LDL: less than 100 mg/dL Near Optimal/Above Optimal LDL: 110-129 mg/dL Borderline High LDL: 130-159 mg/dL High LDL: 160-189 mg/dL Very High LDL: greater than or equal to 190 mg/dL HDL Cholesterol 62 >40 mg/dL Desirable HDL: greater than 40 mg/dL Note: This HDL assay may give artificially low results in patients with liver disease. Reason For Referral No Information Medications Medication SIG (Take, Route, Frequency, Duration) Notes Start Date End Date Status Atorvastatin Calcium 10 MG TAKE 1 TABLET DAILY for 90 Active Omeprazole 20 MG 1 capsule 30 minutes before morning meal Orally Once a day for 30 day(s) Active Xopenex HFA 45 MCG/ACT 1 puff as needed Inhalation every 6 hrs Not-Takin g Albuterol Sulfate HFA 108 (90 Base) MCG/ACT inhale 1 puff into the lungs every 4 hours for 30 days Inhalation every 4 hrs for 90 days Active Clobetasol Propionate 0.05 % 1 application to affected area Externally Twice a day for 14 days 08/30/2012 Not-Taking Levoxyl 100 MCG take 1 tablet every morning on an empty stomach Orally Once a day for 90 days Active Cialis 20 MG 1 tablet Orally for 30 day(s) 12/25/2010 Not-Taking Jardiance 10 MG 1 tablet Orally Once a day for 30 day(s) Active Terazosin HCl 5 MG 1 capsule at bedtime Orally Once a day Not-Taking Latanoprost 0.005 % 1 drop into affected eye in the evening Ophthalmic Once a day Active Ventolin HFA * 108 (90 Base) MCG/ACT 2 puffs as needed Inhalation every 4 hrs for 30 day(s) 06/13/2015 Not-Taking dilTIAZem HCl 120 MG as directed Orally qd Active Furosemide 40 MG alternating 40mg and 20mg Orally Active Tamsulosin HCl 0.4 MG TAKE 1 CAPSULE BY MOUTH EVERY DAY Active Finasteride 5 MG 1 tablet Orally Once a day for 30 day(s) Active Pradaxa 150 MG 1 capsule Orally Twi ce a day Active Metoprolol Succinate ER 100 MG 1 tablet Orally Once a day Active Immunizations Vaccine Route Administration Date Status [...] 04/30/2015 Administered Fluarix Quadrivalent IM Intramuscular 12/03/2015 Administe red Fluarix Quadrivalent IM Intramuscular 12/14/2016 Adminwhite red TDaP IM Intramuscular 05/03/2017 Administered Fluarix [...] W/U Status Risk Notes Problem Erectile dysfunction (962753252) Erectile Dysfunction (607.84) Active confirmed Problem 70928693 Prostatism (N40.0) Active confirmed Problem 54986707 Hypercalcemia (E83.52) Active confirme d Problem 149697919 Chronic atrial fibrillation (I48.2) Active confirmed Problem Acute on chronic diastolic heart failure (124814431) Acute on chronic diastolic (congestive) heart failure (I50.33) Active confirmed Problem Ascites (841566580) Other ascites (R18.8) Active confirmed Problem 9702843 Diastolic dysfun ction (I51.9) Active confirmed Problem 989252183 Tubular adenoma of colon (D12.6) Active confirmed Problem 01346797 Essential hypert ension (I10) Active confirmed Problem 239981704 Acquired hypothy roidism (E03.9) Active confirmed Problem 03707282 Monocytosis (D72.821) Active confirmed Problem 705732178 Chronic a-fib (I48.2) Active confirme d Problem Acute diastolic heart failure (295144790) Acute diastolic congestive heart failure (I50.31) Active confirmed Problem 878699973 Pure hypercholesterolemia (E78.00) Active confirmed Problem Acute asthma (068489081) Acute asthma (J45.909) Active confirmed Problem 246296120 BMI 30.0-30.9,ad ult (Z68.30) Active confirmed Problem Tomography - chest abnormal (137454647) Abnormal CT scan, chest (R93.89) Active confirmed Problem 152479209 Chronic atrial fibrillation, unspecified (I48.20) Active confirmed Problem 415142773 Chronic atrial fibrillation (I48.20) Active confirmed Vital Signs Blood pressure diastolic 70 mm Hg 08/07/2024 phil ght is up 2 pounds since 02-08-24 Height 66 in 08/07/2024 weight is up 2 pounds since 02-08-24 Blood pressure systolic 120 mm Hg 08/07/2024 weig ht is up 2 pounds since 02-08-24 Weight 184 lbs 08/07/2024 weight is up 2 pounds since 02-08-24 BMI 29.7 kg/m2 08/07/2024 weight is up 2 pounds since 02-08-24 Encounters Encounter Location Date Provider Diagnosis Maykel Levin MD [address] [place] [id number] 08/07/2024 Maykel Levin Chronic atrial fibrillation I48.2 ; Pure hypercholesterolemia E78.00 ; Onychomycosis B35.1 and Acute on chronic diastolic (congestive) heart failure I50.33 Maykel Levin MD [address] [place] [id number] 08/19/2023 Maykel Levin Septicemia A41.9 Maykel Levin MD [address] [place] [address] Drive [address] [place] [id number] 02/08/2024 Maykel Levin Essential hypertensi on I10 ; Encounter for general adult medical examination without abnormal findings Z00.00 ; Prostatism N40.0 ; Acute diastolic congestive heart failure I50.31 ; Acquired hypothyroidism E03.9 ; Pure hypercholesterolemia E78.00 and Chronic atrial fibrillation I48.20 Maykel Levin MD [address] [place] [id number] 06/12/2024 Maykel Levin MD [address] [place] [address] Drive [address] [place] [id number] 08/11/2023 Maykel Levin MD [address] [place] [address] Drive [address] [place] [id number] 11/19/2023 Maykel Levin Acute asthma J45.909 Assessments Encounter Date Diagnosis (ICD Code) Assessment Notes Treatment Notes Treatment Clinical Notes Section Notes 08/07/2024 Chronic atrial fibrillation (ICD-10 - I48.2) stable, will continue current regiment 08/07/2024 Pure hypercholesterolemia (ICD-10 - E78.00) not quite at goal, advised on diet, will continue current regiment and will continue to monitor 08/19/2023 Septicemia (ICD-10 - A41.9) is doing [...] patient 11/19/2023 Acute asthma (ICD-10 - J45.909) 08/07/2024 Onychomycosis (ICD-1 0 - B35.1) to see manager of security 02/08/2024 Prostatism (ICD-10 - N40.0) doing well. being followed by urology, will contnue current regiment 08/07/2024 Acute on chronic diastolic (congestive) heart failure (ICD-10 - I50.33) stable, will cntnue current regiment 02/08/2024 Acute diastolic congestive heart [...] complete 08/05/2021 Next Appt Details Provider Name:Maykel stewart, 02/05/2025 07:15:00 AM, [address] [place] [address], [address], [place], [place], [phone], Provider Name:Maykel stewart, 02/12/2025 09:30:00 AM, [address], [address], [place], [place], [phone], Insurance Providers Payer Name Payer Address Payer Phone Subscriber Number Group Number Insured Name Patient Relationship to Insured Coverage Start Date Coverage End Date [employer] PLAN [address] [place] [phone] [id number] Madan Barrios Self - patient is the insured [facility] [address] [place] [id number] Madan Barrios Self - patient is the insured Medical (General) History Medical History History ICD Code Colonoscopy 2006; colonoscop y and endoscopy done 01/15/2012; colonoscopy by Dr. Dickey 03/11/17 - no more indicated
--- OUTSIDE RECORDS SUMMARY | 2024-08-07 11:41 | XMS_ITS ---
Author Organization Maykel Levin MD Address [address] [place] [phone] Care Team Providers Care Polymerization Oven Operator Name Role Phone Maykel Levin Primary Care Provider [phone] Allergies No Known Allergies REASON FOR VISIT [...] Problem Acute on chronic diastolic heart failure (765341521) Acute on chronic diastolic (congestive) heart failure (I50.33) Active confirmed Vital Signs Blood pressure systolic 120 mm Hg 08/08/19 25 Blood pressure diastolic 70 mm Hg 025 Height 66 in 08/07/2024 Weight 184 lbs 08/07/2024 BMI 29.7 kg/m2 08/07/2024 weight is up 2 pounds since 02-08-24 Encounters Encounter Location Date Provider Diagnosis Maykel Levin MD [address] [place] [address] Drive [address] [place] [id number] 08/07/2024 Maykel Levin Chronic atrial fibrillation I48.2 [...] Onychomycosis (ICD-1 0 - B35.1) to see political science faculty member 08/07/2024 Acute on chronic diastolic (congestive) heart failure (ICD-10 - I50.33) stable, will cntnue current regiment Plan Of Treatment Medication Medication Name Sig Start Date Stop Date Notes Pradaxa 150 MG 1 capsule Orally Twice a day Metoprolol Succinate ER 100 MG 1 tablet Orally Once a day Furosemide 40 MG alternating 40mg and 20mg Orally Treatment Notes Assessment Notes Chronic atrial fibrillation stable, will continue current regiment Pure hypercholesterolemia not quite at g oal, advised on diet, will continue current regiment and will continue to monitor Onychomycosis to see political science faculty member Acute on chronic diastolic ( congestive) heart failure stable, will cntnue current regiment Next Appt Details Provider Name:Maykel stewart, 02/05/2025 07:15:00 AM, [address] [place] [address], [address], [phone], Provider Name:Maykel stewart, 02/12/2025 09:30:00 AM, [address] [place] [address], Suite [facility], [place], [place], [phone], Progress Notes * Madan OLIVEIRA JDOB :1945 (79 yo M)Acc No.[id number]:08/07/2024 Progress Notes Patient:?Charlene OLIVEIRA dena J Provider:?Maykel Levin MD :1945???Age:79 Y???Sex:Male Radny e:08/07/2024 Address:[address] [place], [place] [phone] Subjective: * Chief Complaints: * ???1. 6 month. 2. Check righ t great toenail. * HPI: ???Symptom(s):? patient ois a 79 yo male here for 6 month follow up visit. * ROS:?General/Constitutional:?Denies?Chills.?Denies?Fatigue.?Denies?Fever.?Denies?Headache.?ENT:?Denies?Sore throat.?Respiratory:?Denies?Cough.?Denies?Shortness of breath at rest.?Denies?Shortness of breath with exertion.?Cardiovascular:?Denies?Chest pain at rest.?Denies?Chest pain with exertion.?Denies?Palpitations.?Denies?Shortness of breath.?Gastrointestinal:?Denies?Diarrhea.?Denies?Nausea.? * Medical History:?Colonoscopy 2006; colonoscopy and endoscopy done 01/15/2012; colonoscopy by Dr. Dickey 03/11/17 - no more indicated. * Medications:?Taking Finaster eduardo 5 MG Tablet 1 tablet Orally Once a day , Taking Omeprazole 20 MG Capsule Delayed Release 1 capsule 30 minutes before morning meal Orally Once a day , Taking Jardiance 10 MG Tablet 1 tablet Orally Once a day , Taking Latanoprost 0.005 % Solution 1 drop into affected eye in the evening Ophthalmic Once a day , Taking Albuterol Sulfate HFA 108 (90 Base) MCG/ACT Aerosol Solution inhale 1 puff into the lungs every 4 hours for 30 days Inhalation every 4 hrs , Taking Levoxyl 100 MCG Tablet take 1 tablet every morning on an empty stomach Orally Once a day , Taking Metoprolol Succinate ER 100 MG Tablet Extended Release 24 Hour 1 tablet Orally Once a day , Taking Pradaxa 150 MG Capsule 1 capsule Orally Twice a day , Taking dilTIAZem HCl 120 MG Tablet as directed Orally qd , Taking Furosemide 40 MG Tablet alternating 40mg and 20mg Orally , Taking Tamsulosin HCl 0.4 MG Capsule TAKE 1 CAPSULE BY MOUTH EVERY DAY , Taking Atorvastatin Calcium 10 MG Tablet TAKE 1 TABLET DAILY , Not-Taking/PRN Xopenex HFA 45 MCG/ACT Aerosol 1 puff as needed Inhalation every 6 hrs , Not-Taking/PRN Terazosin HCl 5 MG Capsule 1 capsule at bedtime Orally Once a day , Not-Taking/PRN Ventolin HFA * 108 (90 Base) MCG/ACT Aerosol Solution 2 puffs as needed Inhalation every 4 hrs , Not-Taking/PRN Clobetasol Propionate 0.05 % Cream 1 application to affected area Externally Twice a day , Not-Taking/PRN Cialis 20 MG Tablet 1 tablet Orally , Medication List reviewed and reconciled with the patient * Allergies:?N.K.D.A. Objective: * Vitals:?Ht: 66, Wt: 184, BMI :29.7, BP:120/70, Wt-k.46. weight is up 2 pounds since 02-08-24. * Examination: ???General Examination: ?GENERAL APPEARANCE:?alert, well hydrated, in no distress.?HEAD:?normocephalic.?SKIN:?good turgor.?HEART:?regular rate and rhythm.?LUNGS:?no wheezes, rales, rhonchi, good air movement, clear to auscultation bilaterally.?EXTREMITIES:?abnormal/ with left great toenail with onychomycosis. has some pigment on the eedge that appears to be from bleeding.? Assessment: * Assessment: 1.?Chronic atrial fibrillati on - I48.2 (Primary)???2.?Pure hypercholesterolemia - E78.00???3.?Onychomycosis - B35.1???4.?Acute on chronic diastolic (congestive) heart failure - I50.33??? Plan: * Treatment: 2.?Pure hypercholesterolemia ? Notes: not quite at goal, advised on diet, will continue current regiment and will continue to monitor?? 3.?Onychomycosis? Notes: to see political science faculty member?? 4.?Acute on chronic diastoli c (congestive) heart failure? Continue Furosemide Tablet, 40 MG, alternating 40mg and 20mg, Orally.?? Notes: stable, will cntnue current regiment?? * * The named appointment provid er may or may not be the originator of this progress note, and it is not deemed complete until electronically signed by the appointment provider. Sign off status: Pending * Provider:?Maykel Levin MD Date:?0 08/07/2024 Generated for Wilmer salazar/Tequila/eTransmitting on:?08/07/2024 11:41 AM EDT History and Physical Notes * HPI (History of Present Illness) Category Sub-Category Detail Notes Category Not es Symptom(s) patient ois a [age] yo male here for 6 month follow [...]
--- OUTSIDE RECORDS SUMMARY | 2024-08-07 11:41 | XMS_ITS ---
Author Organization Maykel Levin MD Address [address] [facility] [address] [place] [phone] Care Team Providers Care Blending Plant Operator Name Role Phone Maykel Levin Primary Care Provider REASON FOR VISIT HCC Risk Codes 08/07 Encounters Encounter Location Date Provider Diagnosis Maykel Levin MD [address] [facility] [address] [place] [phone] 06/12/2024 Maykel Levin Plan Of Treatment Next Appt Details Provider Name:Maykel stewart, 02/05/2025 07:15:00 AM, [address] [place] [address], [address], [phone], Provider Name:Maykel stewart, 02/12/2025 09:30:00 AM, [address] [place] [address], [address], [phone], Progress Notes * Madan OLIVEIRA JDOB :1945 (79 yo M)Acc No.[id number]:06/12/2024 Patient:?CARLYBHARATHICharlene Little :1945???Age:79 Y???Sex:Male Address:[address] [place] [address] [place] [address] * * Date:?
--- OUTSIDE RECORDS SUMMARY | 2024-08-07 11:41 | XMS_ITS | Continuity of Care Document ---
Author Name [facility] Organization [facility] Care Team Providers Care Sales Account Representative Name Role Phone [facility] Unavailable Unavailable Problems Combined list of problems from Department of Defense and Veterans Affairs facilities. It does not include entries that were removed or entered in error. Problem Status Onset Date Problem Type Date of Resolution Comments Source Atrial fibrillation Active Condition [facility] Benign Prostatic Hypertrophy with Outflow Obstruction ([facility] [id number]) Active Condition [facility] BP - High blood pressure Active Condition [facility] CHF - Congestive Heart Failure ([facility] [id number]) Active Condition [facility] [place] [...] [facility] [place] [facility] Diagnosis: ICD-10-CM Z79.01 long term (current) use of anticoagulants Active Diagnosis [facility] (6[facility]GE) Diagnosis: ICD-10-CM Z51.81 Encounter for therapeutic drug level monitoring Active Diagnosis [facility] [place] [facility] Medications Combined list of outpatient [...] EVERY TWELVE HOURS FOR ATRIAL FIBRILLA TION [facility] [place] [facility] REMOTE RX: [id number] KEEP IN ORIGINAL CONTAINE R ORAL DISCONT INUED BY PROVIDE R 06/18/2024 [id number] ESTELLE VERMA I [address] [facility] DABIGATRAN ETEXILATE 150MG CAP,ORAL TAKE ONE CAPSULE BY MOUTH EVERY 12 HOURS (ONCE OPENED, THE MEDICATI ON MUST BE USED WITHIN 4 MONTHS) ORAL 07/02/2024 [id number] ALYSON STINSON 2023 180 [facility] [place] DILTIAZEM HCL 60MG 12HR CAP,SA TAKE 1 CAPSULE BY MOUTH TWICE DAILY ORAL ACTIVE ALYSON STINSON 2021 [facility] [place] EMPAGLIFLOZ IN 10MG TAB TAKE ONE TABLET BY MOUTH ONCE DAILY FOR DIABETES ORAL ACTIVE 09/17/2024 [id number] 5 ALYSON STINSON 2023 90 [facility] [place] [facility] EMPAGLIFLOZ IN 10MG TAB TAKE ONE TABLET BY MOUTH ONCE DAILY FOR DIABETES ORAL DISCONT INUED 07/28/2023 [id number] 4 ALYSON STINSON 2022 90 [facility] [place] FINASTERIDE 5MG TAB TAKE ONE TABLET BY MOUTH ONCE DAILY ORAL ACTIVE ALYSON STINSON 2023 [facility] [place] [facility] [facility] FUROSEMIDE 40MG TAB TAKE ONE TABLET BY MOUTH ONCE DAILY ORAL ACTIVE ALYSON STINSON 2021 [facility] [place] [facility] [facility] LATANOPROST 0.005% SOLN,OPH INSTILL 1 DROP INTO EACH EYE AT BEDTIME OPHTHA LMIC ACTIVE Britney GANDARA spring IELD LEVOTHYROXI NE NA 100MCG TAB (SYNTHROID) TAKE ONE TABLET BY MOUTH EVERY MORNING 30 MINUTES BEFORE BREAKFAS T ORAL ACTIVE Britney GANDARA 2016 IELD METOPROLOL TARTRATE 100MG TAB TAKE ONE TABLET BY MOUTH TWICE DAILY ORAL ACTIVE ALYSON STINSON 2023 [facility] OMEPRAZOLE 20MG CAP,EC TAKE 1 CAPSULE BY MOUTH EVERY MORNING 30 MINUTES BEFORE BREAKFAS T ORAL ACTIVE Britney GANDARA [address] [facility] IELD SILDENAFIL CITRATE 100MG TAB TAKE ONE TABLET BY MOUTH ONCE DAILY NEEDED TAKE 1 HOUR PRIOR TO SEXUAL ACTIVITY ORAL 11/03/2023 [id number] ALYSON STINSON 2022 6 [facility] TAMSULOSIN HCL 0.4MG CAP TAKE 1 CAPSULE BY MOUTH AT BEDTIME ORAL ACTIVE ALYSON STINSON 2021 [facility] TERAZOSIN HCL 5MG CAP TAKE 1 CAPSULE BY MOUTH ONCE DAILY ORAL ACTIVE ALYSON STINSON 2021 [facility] Immunizations Combined list of available immunizations from the Department of Defense and Veterans Affairs facilities. 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 Status Comments Source COVID-19 (MODERNA), MRNA, LNP-S, PF, 100 MCG/0.5 ML DOSE 2 2020 207 complet ed MOD; [id number]; 1 [facility] COVID-19 (MODERNA), MRNA, LNP-S, PF, 100 MCG/0.5 ML DOSE 1 2020 207 complet ed MOD; [id number]; 1 [facility] [place] INFLUENZA, UNSPECIFIED FORMULATION 2019 88 complet ed [facility] [place] [facility] INFLUENZA, SEASONAL, INJECTABLE 2018 141 complet ed [facility] [place] [facility] INFLUENZA, SEASONAL, INJECTABLE 2017 141 complet ed [facility] [place] [facility] TDAP 2017 115 complet ed [facility] [place] [facility] INFLUENZA, SEASONAL, INJECTABLE 2016 141 complet ed [facility] [place] [facility] PNEUMOCOCCAL CONJUGATE PCV 13 2015 133 complet ed YES [facility] [place] [facility] PNEUMOCOCCAL POLYSACCHARID E PPV23 2013 33 complet ed [facility] [place] [facility] ZOSTER LIVE 2011 121 complet ed YES [facility]RD.[facility] [place] [facility] Results Combined list of recent [...] Sep 01, 2023 03:23 PM Reporting Lab: [address] [address] Performing Lab: [address] [address] [facility] MASSUSE [facility] BASIC METABOLIC PANEL (non-fast ing) GLUCOSE [MASS/VOLUM E] IN SERUM OR PLASMA 120 mg/dL 65 - 100 09/08 H Specimen Type: SERUM No comment entered. Ordering Provider: LAMONTE STINSON Report Released Date/Time: Sep 01, 2023 03:23 PM Reporting Lab: [facility] [address] Performing Lab: [facility]N [facility]ITALUSE[facility] [address] [address] [facility] TS [facility] BASIC METABOLIC PANEL (non-fast ing) SODIUM [MOLES/VOLU ME] IN SERUM OR PLASMA 137 mmol/L 135 - 145 09/08 Specimen Type: SERUM No comment entered. Ordering Provider: LAMONTE STINSON Report Released Date/Time: Sep 01, 2023 03:23 PM Reporting Lab: [address] [address] Performing Lab: [facility]N [facility]OSPITALUSECLIFT[facility] [address] [address] [facility]N [facility] BASIC METABOLIC PANEL (non-fast ing) POTASSIUM [MOLES/VOLU ME] IN SERUM OR PLASMA 4.1 mmol/L 3.5 - 5.0 09/08 Specimen Type: SERUM No comment entered. Ordering Provider: LAMONTE STINSON Report Released Date/Time: Sep 01, 2023 03:23 PM Reporting Lab: [facility]OSPITALRD.[facility]N [facility]OSPITALUSECLIFT[facility] [address] [address] Performing Lab: [facility]N [facility] [address] [address] [facility] BASIC METABOLIC PANEL (non-fast ing) CHLORIDE [MOLES/VOLU ME] IN SERUM OR PLASMA 102 mmol/L 100 - 110 09/08 Specimen Type: SERUM No comment entered. Ordering Provider: LAMONTE STINSON Report Released Date/Time: Sep 01, 2023 03:23 PM Reporting Lab: [facility] [address] [address] Performing Lab: [facility] [address] [address] [facility] BASIC METABOLIC PANEL (non-fast ing) CARBON DIOXIDE, TOTAL [MOLES/VOLU ME] IN SERUM OR PLASMA 25 meq/L 20 - 30 09/08 Specimen Type: SERUM No comment entered. Ordering Provider: LAMONTE STINSON Report Released Date/Time: Sep 01, 2023 03:23 PM Reporting Lab: [facility]N [facility] HOSPITALUSECLIFT[facility] [address] [address] Performing Lab: [facility]N [facility] HOSPITALUSECLIFT[facility] [address] [address] [facility] BASIC METABOLIC PANEL (non-fast ing) CREATININE [MASS/VOLUM E] IN SERUM OR PLASMA 1.46 mg/dL 0.50 - 1.40 09/08 H Specimen Type: SERUM No comment entered. Ordering Provider: LAMONTE STINSON Report Released Date/Time: Sep 01, 2023 03:23 PM Reporting Lab: [facility] [place] [facility] [address] [address] Performing Lab: [facility] [place] [facility] [address] [address] [facility] [place] [facility] BASIC METABOLIC PANEL (non-fast ing) GLOMERULAR FILTRATION RATE/1.73 SQ M.PREDICTED [VOLUME RATE/AREA] IN SERUM, PLASMA OR BLOOD BY CREATININE- BASED FORMULA (CKD-EPI 2020) 49 mL/min 60 09/08 L Specimen Type: SERUM No comment entered. Ordering Provider: LAMONTE STINSON Report Released Date/Time: Sep 01, 2023 03:23 PM Reporting Lab: [facility] [place] [facility] [address] [address] Performing Lab: [facility] [place] [facility] [address] [address] [facility]OSPITALRL [facility] [place] [facility] CBC LEUKOCYTES [#/VOLUME] IN BLOOD BY AUTOMATED COUNT 6.93 10*3/u L 4.50 - 11.00 09/08 Specimen Type: BLOOD No comment entered. Ordering Provider: LAMONTE STINSON Report Released Date/Time: Sep 01, 2023 03:23 PM Reporting Lab: [facility] [place] [address] [address] Performing Lab: [facility] [place] [facility] [address] [address] [facility] [place] [facility] CBC ERYTHROCYTE S [#/VOLUME] IN BLOOD BY AUTOMATED COUNT 5.22 10*6/u L 4.23 - 5.66 09/08 Specimen Type: BLOOD No comment entered. Ordering Provider: LAMONTE STINSON Report Released Date/Time: Sep 01, 2023 03:23 PM Reporting Lab: [facility] [place] [address] [address] Performing Lab: [facility] [place] [address] [address] [facility] [place] [facility] CBC HEMOGLOBIN [MASS/VOLUM E] IN BLOOD 16.1 g/dL 12.8 - 17 09/08 Specimen Type: BLOOD No comment entered. Ordering Provider: LAMONTE STINSON Report Released Date/Time: Sep 01, 2023 03:23 PM Reporting Lab: [facility] [place] [facility] [address] [address] Performing Lab: [facility] [place] [facility] [address] [address] [facility] [place] [facility] CBC HEMATOCRIT [VOLUME FRACTION] OF BLOOD BY AUTOMATED COUNT 47.8 39.2 - 50.4 09/08 Specimen Type: BLOOD No comment entered. Ordering Provider: LAMONTE STINSON Report Released Date/Time: Sep 01, 2023 03:23 PM Reporting Lab: [facility] [place] [address] [address] Performing Lab: [facility] [place] [facility] [address] [address] [facility] [place] [facility] CBC MCV [ENTITIC VOLUME] BY AUTOMATED COUNT 91.6 fL 82 - 99 09/08 Specimen Type: BLOOD No comment entered. Ordering Provider: LAMONTE STINSON Report Released Date/Time: Sep 01, 2023 03:23 PM Reporting Lab: [facility] [place] [address] [address] Performing Lab: [facility] [place] [address] [address] [facility] [place] [facility] CBC MCHC [MASS/VOLUM E] BY AUTOMATED COUNT 33.7 g/dL 30.8 - 35.1 09/08 Specimen Type: BLOOD No comment entered. Ordering Provider: LAMONTE STINSON Report Released Date/Time: Sep 01, 2023 03:23 PM Reporting Lab: [facility] [place] [address] [address] Performing Lab: [facility] [place] [facility] [address] [address] [facility] [place] [facility] CBC PLATELETS [#/VOLUME] IN BLOOD BY AUTOMATED COUNT 189 10*3/u L 140 - 360 09/08 Specimen Type: BLOOD No comment entered. Ordering Provider: LAMONTE STINSON Report Released Date/Time: Sep 01, 2023 03:23 PM Reporting Lab: [facility] [place] [facility] [address] [address] Performing Lab: [facility] [place] [facility] [address] [address] [facility] [place] [facility] CBC ERYTHROCYTE DISTRIBUTIO N WIDTH [RATIO] BY AUTOMATED COUNT 14.1 12.0 - 16.0 09/08 Specimen Type: BLOOD No comment entered. Ordering Provider: LAMONTE STINSON Report Released Date/Time: Sep 01, 2023 03:23 PM Reporting Lab: [facility] [place] [facility] [address] [address] Performing Lab: [facility] [place] [facility] [address] [address] [facility] [place] [facility] CBC MCH [ENTITIC MASS] BY AUTOMATED COUNT 30.8 pg 26.2 - 32.6 09/08 Specimen Type: BLOOD No comment entered. Ordering Provider: LAMONTE STINSON Report Released Date/Time: Sep 01, 2023 03:23 PM Reporting Lab: [facility] [place] [facility] [address] [address] Performing Lab: [facility] [place] [address] [address] [facility] [place] [facility] LIPID PANEL, NON FASTING CHOLESTEROL [MASS/VOLUM E] IN SERUM OR PLASMA 183 mg/dL 09/08 Specimen Type: SERUM No comment entered. Ordering Provider: LAMONTE STINSON Report Released Date/Time: Sep 01, 2023 03:23 PM Reporting Lab: [facility] [place] [facility] [address] [address] Performing Lab: [facility]ITALRREGIONAL MEDICAL CENTER OF JACKSONVILLETRN [facility] HOSPITALUSECL[facility] [address] [address] [facility] HOSPITALRD.[facility]. [facility]ITALN [facility] HOSPITALUSE [facility] LIPID PANEL, NON FASTING TRIGLYCERID E [MASS/VOLUM E] IN SERUM OR PLASMA 76 mg/dL 0 - 150 09/08 Specimen Type: SERUM No comment entered. Ordering Provider: LAMONTE STINSON Report Released Date/Time: Sep 01, 2023 03:23 PM Reporting Lab: [facility]OSPITALRREGIONAL MEDICAL CENTER OF JACKSONVILLETRN [facility] HOSPITALUSECL[facility] [address] [address] Performing Lab: [facility] HOSPITALRD.[facility]. [facility]ITALN [facility] [address] [address] [facility]N [facility] LIPID PANEL, NON FASTING CHOLESTEROL IN LDL [MASS/VOLUM E] IN SERUM OR PLASMA BY CALCULATION 107 mg/dL 0 - 129 09/08 Specimen Type: SERUM No comment entered. Ordering Provider: LAMONTE STINSON Report Released Date/Time: Sep 01, 2023 03:23 PM Reporting Lab: [facility] HOSPITALRD.[facility]. [facility]OSPITALN [facility] HOSPITALUSECLIFT[facility] [address] [address] Performing Lab: [facility] HOSPITALRD.[facility]. [facility]OS[facility]ITALN [facility] HOSPITALUSECLIFT[facility] [address] [address] [facility]N [facility] LIPID PANEL, NON FASTING CHOLESTEROL .TOTAL/CHOL ESTEROL IN HDL [MASS RATIO] IN SERUM OR PLASMA 3.0 09/08 Specimen Type: SERUM No comment entered. Ordering Provider: LAMONTE STINSON Report Released Date/Time: Sep 01, 2023 03:23 PM Reporting Lab: [facility]OSPITALRREGIONAL MEDICAL CENTER OF JACKSONVILLETRN [facility] HOSPITALUSECL[facility] [address] [address] Performing Lab: [facility] HOSPITALRD.[facility]. [facility]ITALN [facility] HOSPITALUSECLIFT[facility] [address] [address] [facility]ITALN [facility] LIPID PANEL, NON FASTING CHOLESTEROL IN HDL [MASS/VOLUM E] IN SERUM OR PLASMA 61 mg/dL 40 - 60 09/08 H Specimen Type: SERUM No comment entered. Ordering Provider: LAMONTE STINSON Report Released Date/Time: Sep 01, 2023 03:23 PM Reporting Lab: [facility] [place] [facility] [address] [address] Performing Lab: [facility] [place] [facility] [address] [address] [facility] [place] [facility] LIVER FUNCTION PROTEIN [MASS/VOLUM E] IN SERUM OR PLASMA 7.3 g/dL 6.0 - 8.3 09/08 Specimen Type: SERUM No comment entered. Ordering Provider: LAMONTE STINSON Report Released Date/Time: Sep 01, 2023 03:23 PM Reporting Lab: [facility] [place] [facility] [address] [address] Performing Lab: [facility] [place] [facility] [address] [address] [facility] [place] [facility] LIVER FUNCTION ALBUMIN [MASS/VOLUM E] IN SERUM OR PLASMA 4.1 g/dL 3.5 - 5.0 09/08 Specimen Type: SERUM No comment entered. Ordering Provider: LAMONTE STINSON Report Released Date/Time: Sep 01, 2023 03:23 PM Reporting Lab: [facility] [place] [facility] [address] [address] Performing Lab: [facility] [place] [facility] [address] [address] [facility] [place] [facility] LIVER FUNCTION ALKALINE PHOSPHATASE [ENZYMATIC ACTIVITY/VO LUME] IN SERUM OR PLASMA 94 U/L 40 - 150 09/08 Specimen Type: SERUM No comment entered. Ordering Provider: LAMONTE STINSON Report Released Date/Time: Sep 01, 2023 03:23 PM Reporting Lab: [facility] [place] [facility] [address] [address] Performing Lab: [facility] [place] [facility] [address] [address] [facility] [place] [facility] LIVER FUNCTION ASPARTATE AMINOTRANSF ERASE [ENZYMATIC ACTIVITY/VO LUME] IN SERUM OR PLASMA 22 U/L 5 - 34 09/08 Specimen Type: SERUM No comment entered. Ordering Provider: LAMONTE STINSON Report Released Date/Time: Sep 01, 2023 03:23 PM Reporting Lab: [facility] [place] [facility] [address] [address] Performing Lab: [facility] [place] [facility] [address] [address] [facility] [place] [facility] LIVER FUNCTION ALANINE AMINOTRANSF ERASE [ENZYMATIC ACTIVITY/VO LUME] IN SERUM OR PLASMA 22 U/L 09/08 Specimen Type: SERUM No comment entered. Ordering Provider: LAMONTE STINSON Report Released Date/Time: Sep 01, 2023 03:23 PM Reporting Lab: [facility] [place] [facility] [address] [address] Performing Lab: [facility] [place] [facility] [address] [address] [facility] [place] [facility] LIVER FUNCTION BILIRUBIN.T OTAL [MASS/VOLUM E] IN SERUM OR PLASMA 1.1 mg/dL 0.2 - 1.2 09/08 Specimen Type: SERUM No comment entered. Ordering Provider: LAMONTE STINSON Report Released Date/Time: Sep 01, 2023 03:23 PM Reporting Lab: [facility] [place] [facility] [address] [address] Performing Lab: [facility] [place] [facility] [address] [address] [facility] [place] [facility] PT & INR (PROTIME) INR IN PLATELET POOR PLASMA BY COAGULATION ASSAY 1.3 09/08 Specimen Type: PLASMA No comment entered. Ordering Provider: LAMONTE STINSON Report Released Date/Time: Sep 01, 2023 03:23 PM Reporting Lab: [facility] [place] [facility] [address] [address] Performing Lab: [facility] [place] [facility] [address] [address] [facility] [place] [facility] PT & INR (PROTIME) PROTHROMBIN TIME (PT) 14.3 s 10.0 - 13.1 09/08 H Specimen Type: PLASMA No comment entered. Ordering Provider: LAMONTE STINSON Report Released Date/Time: Sep 01, 2023 03:23 PM Reporting Lab: [facility] HOSPITALRL [place]N [place] [address] [address] Performing Lab: [place] [facility] [place] [address] [address] [facility] HOSPITALRL WSTRN MAS[facility]SE [facility] CREATININ E (eGFR 2020) CREATININE [MASS/VOLUM E] IN SERUM OR PLASMA 1.38 mg/dL 0.50 - 1.40 04/28 Specimen Type: SERUM No comment entered. Ordering Provider: ELVIA SHAH Report Released Date/Time: Apr 13, 2023 04:12 PM Reporting Lab: [facility] HOSPITALRL TRN MASSUSE[address] [address] Performing Lab: [facility] WSTRN [facility] HOSPITALUSETS [address] [address] [facility] HOSPITALRL TRN MAS[facility]SE [facility] CREATININ E (eGFR 2020) GLOMERULAR FILTRATION RATE/1.73 SQ M.PREDICTED [VOLUME RATE/AREA] IN SERUM, PLASMA OR BLOOD BY CREATININE- BASED FORMULA (CKD-EPI 2020) 52 mL/min 60 04/28 L Specimen Type: SERUM No comment entered. Ordering Provider: ELVIA SHAH Report Released Date/Time: Apr 13, 2023 04:12 PM Reporting Lab: [facility] [place] [address] [address] Performing Lab: [facility] HOSPITALRL TRN THE [facility] SPECIAL[facility] HOSPITALUSETS [address] [address] [facility] HOSPITALRL TRN [place] [facility] CBC LEUKOCYTES [#/VOLUME] IN BLOOD BY AUTOMATED COUNT 5.78 10*3/u L 4.50 - 11.00 04/28 Specimen Type: BLOOD No comment entered. Ordering Provider: ELVIA SHHA Report Released Date/Time: Apr 13, 2023 04:12 PM Reporting Lab: [facility] [place] [facility] [address] [address] Performing Lab: [facility] [place] [facility] [address] [address] [facility] [place] [facility] CBC ERYTHROCYTE S [#/VOLUME] IN BLOOD BY AUTOMATED COUNT 5.08 10*6/u L 4.23 - 5.66 04/28 Specimen Type: BLOOD No comment entered. Ordering Provider: ELVIA SHAH Report Released Date/Time: Apr 13, 2023 04:12 PM Reporting Lab: [facility] [place] [facility] [address] [address] Performing Lab: [facility] [place] [facility] [address] [address] [facility] [place] [facility] CBC HEMOGLOBIN [MASS/VOLUM E] IN BLOOD 16.3 g/dL 12.8 - 17 04/28 Specimen Type: BLOOD No comment entered. Ordering Provider: ELVIA SHAH Report Released Date/Time: Apr 13, 2023 04:12 PM Reporting Lab: [facility] [place] [facility] [address] [address] Performing Lab: [facility] [place] [facility] [address] [address] [facility] [place] [facility] CBC HEMATOCRIT [VOLUME FRACTION] OF BLOOD BY AUTOMATED COUNT 48.8 39.2 - 50.4 04/28 Specimen Type: BLOOD No comment entered. Ordering Provider: ELVIA SHAH Report Released Date/Time: Apr 13, 2023 04:12 PM Reporting Lab: [facility] [place] [facility] [address] [address] Performing Lab: [place] [facility] [place] [facility] [address] [address] [facility] [place] [facility] CBC MCV [ENTITIC VOLUME] BY AUTOMATED COUNT 96.1 fL 82 - 99 04/28 Specimen Type: BLOOD No comment entered. Ordering Provider: ELVIA SHAH Report Released Date/Time: Apr 13, 2023 04:12 PM Reporting Lab: [facility] [place] [facility] [address] [address] Performing Lab: [facility] [place] [facility] [address] [address] [facility] [place] [facility] CBC MCHC [MASS/VOLUM E] BY AUTOMATED COUNT 33.4 g/dL 30.8 - 35.1 04/28 Specimen Type: BLOOD No comment entered. Ordering Provider: ELVIA SHAH Report Released Date/Time: Apr 13, 2023 04:12 PM Reporting Lab: [place] [facility] [facility] [address] [address] Performing Lab: [facility] [place] [address] [address] [facility] [place] [facility] CBC PLATELETS [#/VOLUME] IN BLOOD BY AUTOMATED COUNT 168 10*3/u L 140 - 360 04/28 Specimen Type: BLOOD No comment entered. Ordering Provider: ELVIA SHAH Report Released Date/Time: Apr 13, 2023 04:12 PM Reporting Lab: [facility] [place] [address] [address] Performing Lab: [facility] [place] [address] [address] [facility] [place] [facility] CBC ERYTHROCYTE DISTRIBUTIO N WIDTH [RATIO] BY AUTOMATED COUNT 13.2 12.0 - 16.0 04/28 Specimen Type: BLOOD No comment entered. Ordering Provider: ELVIA SHAH Report Released Date/Time: Apr 13, 2023 04:12 PM Reporting Lab: [facility] [place] [address] [address] Performing Lab: [facility] [place] [address] [address] [facility] [place] [facility] CBC MCH [ENTITIC MASS] BY AUTOMATED COUNT 32.1 pg 26.2 - 32.6 04/28 Specimen Type: BLOOD No comment entered. Ordering Provider: ELVIA SHAH Report Released Date/Time: Apr 13, 2023 04:12 PM Reporting Lab: [facility] [place] [facility] [address] [facility] [facility] [address] Performing Lab: [facility] [place] [facility] [address] [facility] [facility] [facility] [address] [facility] THYROID T4 FREE(FT4) THYROXINE (T4) FREE [MASS/VOLUM E] IN SERUM OR PLASMA 1.31 ng/dL 0.6 - 1.6 09/10 Specimen Type: SERUM Comment: Specimen Icteric Ordering Provider: LAMONTE STINSON Report Released Date/Time: Sep 04, 2022 11:19 AM Reporting Lab: [facility] [place] [facility] [address] [facility] [facility] [address] Performing Lab: [facility] [place] [facility] [address] [facility] [address] [facility] [place] [facility] CBC LEUKOCYTES [#/VOLUME] IN BLOOD BY AUTOMATED COUNT 5.77 10*3/u L 4.50 - 11.00 09/10 Specimen Type: BLOOD No comment entered. Ordering Provider: LAMONTE STINSON Report Released Date/Time: Sep 04, 2022 11:19 AM Reporting Lab: [facility] [place] [facility] [address] [facility] [facility] [address] Performing Lab: [facility] [place] [facility] [address] [facility] [facility] [facility] [address] [facility] [place] CBC ERYTHROCYTE S [#/VOLUME] IN BLOOD BY AUTOMATED COUNT 5.35 10*6/u L 4.23 - 5.66 09/10 Specimen Type: BLOOD No comment entered. Ordering Provider: LAMONTE STINSON Report Released Date/Time: Sep 04, 2022 11:19 AM Reporting Lab: [facility] [place] [facility] [address] [facility] [facility] [address] Performing Lab: [facility] [place] [facility] [address] [facility] [facility] [address] [facility] [place] CBC HEMOGLOBIN [MASS/VOLUM E] IN BLOOD 17.2 g/dL 12.8 - 17 09/10 H Specimen Type: BLOOD No comment entered. Ordering Provider: LAMONTE STINSON Report Released Date/Time: Sep 04, 2022 11:19 AM Reporting Lab: [facility] [place] [facility] [address] [facility] [facility] [address] Performing Lab: [facility] [place] [facility] [address] [facility] [facility] [address] [facility] [place] [facility] CBC HEMATOCRIT [VOLUME FRACTION] OF BLOOD BY AUTOMATED COUNT 51.4 39.2 - 50.4 09/10 H Specimen Type: BLOOD No comment entered. Ordering Provider: LAMONTE STINSON Report Released Date/Time: Sep 04, 2022 11:19 AM Reporting Lab: [facility] [place] [address] [address] Performing Lab: [facility] [place] [facility] [address] [facility] [facility] [address] [facility] [place] [facility] CBC MCV [ENTITIC VOLUME] BY AUTOMATED COUNT 96.1 fL 82 - 99 09/10 Specimen Type: BLOOD No comment entered. Ordering Provider: LAMONTE STINSON Report Released Date/Time: Sep 04, 2022 11:19 AM Reporting Lab: [facility] [place] [address] [address] Performing Lab: [facility] [place] [facility] [address] [facility] [facility] [address] [facility] [place] [facility] CBC MCHC [MASS/VOLUM E] BY AUTOMATED COUNT 33.5 g/dL 30.8 - 35.1 09/10 Specimen Type: BLOOD No comment entered. Ordering Provider: LAMONTE STINSON Report Released Date/Time: Sep 04, 2022 11:19 AM Reporting Lab: [facility] [place] [address] [address] Performing Lab: [facility] [place] [address] [address] [facility] [place] [facility] CBC PLATELETS [#/VOLUME] IN BLOOD BY AUTOMATED COUNT 151 10*3/u L 140 - 360 09/10 Specimen Type: BLOOD No comment entered. Ordering Provider: LAMONTE STINSON Report Released Date/Time: Sep 04, 2022 11:19 AM Reporting Lab: [facility] [place] [facility] [address] [facility] [facility] [address] Performing Lab: [facility] [place] [facility] [address] [facility] [facility] [address] [facility] [place] [facility] CBC ERYTHROCYTE DISTRIBUTIO N WIDTH [RATIO] BY AUTOMATED COUNT 13.9 12.0 - 16.0 09/10 Specimen Type: BLOOD No comment entered. Ordering Provider: LAMONTE STINSON Report Released Date/Time: Sep 04, 2022 11:19 AM Reporting Lab: [facility] [place] [address] [address] Performing Lab: [facility] [place] [address] [address] [facility] [place] [facility] CBC MCH [ENTITIC MASS] BY AUTOMATED COUNT 32.1 pg 26.2 - 32.6 09/10 Specimen Type: BLOOD No comment entered. Ordering Provider: LAMONTE STINSON Report Released Date/Time: Sep 04, 2022 11:19 AM Reporting Lab: [facility] [place] [address] [address] Performing Lab: [facility] [place] [address] [address] [facility] [place] [facility] BASIC METABOLIC PANEL (fasting) UREA NITROGEN [MASS/VOLUM E] IN SERUM OR PLASMA 20 mg/dL 7 - 09/10 Specimen Type: SERUM No comment entered. Ordering Provider: LAMONTE STINSON Report Released Date/Time: Sep 04, 2022 11:19 AM Reporting Lab: [facility] [place] [address] [address] Performing Lab: [facility] [place] [facility] [address] [facility] [facility] [facility] [address] [facility] HOSPITALRD.W. [facility]OSPITALN [facility]OSPITALUSE [facility] BASIC METABOLIC PANEL (fasting) GLUCOSE [MASS/VOLUM E] IN SERUM OR PLASMA 104 mg/dL 65 - 100 09/10 H Specimen Type: SERUM No comment entered. Ordering Provider: LAMONTE STINSON Report Released Date/Time: Sep 04, 2022 11:19 AM Reporting Lab: [facility] HOSPITALRL TRN MASSUSECLIFTON [facility]INGS [facility] [address] [facility] [facility] [address] Performing Lab: [facility] HOSPITALRREGIONAL MEDICAL CENTER OF JACKSONVILLETRN [facility]OSPITALUSECLIFT[facility] [address] [facility] [address] [facility]OSPITALN [facility] HOSPITALUSE [facility] BASIC METABOLIC PANEL (fasting) SODIUM [MOLES/VOLU ME] IN SERUM OR PLASMA 139 mmol/L 135 - 145 09/10 Specimen Type: SERUM No comment entered. Ordering Provider: LAMONTE STINSON Report Released Date/Time: Sep 04, 2022 11:19 AM Reporting Lab: [facility] HOSPITALRREGIONAL MEDICAL CENTER OF JACKSONVILLETRN [facility] HOSPITALUSECLIFT[facility] [address] [facility] [address] Performing Lab: [facility] HOSPITALRREGIONAL MEDICAL CENTER OF JACKSONVILLETRN [facility]OSPITALUSECL[facility] [address] [facility] [address] [facility] HOSPITALN [facility] BASIC METABOLIC PANEL (fasting) POTASSIUM [MOLES/VOLU ME] IN SERUM OR PLASMA 4.0 mmol/L 3.5 - 5.0 09/10 Specimen Type: SERUM No comment entered. Ordering Provider: LAMONTE STINSON Report Released Date/Time: Sep 04, 2022 11:19 AM Reporting Lab: [facility] HOSPITALRL [place]N [place] [facility] [address] [facility] [facility] [address] Performing Lab: [facility] HOSPITALRREGIONAL MEDICAL CENTER OF JACKSONVILLETRN [facility]OSPITALUSECLIFTON [facility] [address] [address] [facility] HOSPITALRD.W. [facility]OSPITALN [facility] HOSPITALUSE [facility] BASIC METABOLIC PANEL (fasting) CHLORIDE [MOLES/VOLU ME] IN SERUM OR PLASMA 104 mmol/L 100 - 110 09/10 Specimen Type: SERUM No comment entered. Ordering Provider: LAMONTE STINSON Report Released Date/Time: Sep 04, 2022 11:19 AM Reporting Lab: [facility] [place] [facility] [address] [facility] [facility] [address] Performing Lab: [facility] [place] [facility] [address] [facility] [facility] [address] [facility] HOSPITALRL WSTRN MASSUSE [facility] BASIC METABOLIC PANEL (fasting) CARBON DIOXIDE, TOTAL [MOLES/VOLU ME] IN SERUM OR PLASMA 24 meq/L 20 - 30 09/10 Specimen Type: SERUM No comment entered. Ordering Provider: LAMONTE STINSON Report Released Date/Time: Sep 04, 2022 11:19 AM Reporting Lab: [facility] HOSPITALRL [place] [facility] [address] [facility] [address] Performing Lab: [facility] HOSPITALRL WSTRN [facility] HOSPITALUSECLIFT[facility] [address] [facility] [address] [facility] HOSPITALRD.W. M[facility] HOSPITALN [facility] HOSPITALUSE [facility] BASIC METABOLIC PANEL (fasting) CREATININE [MASS/VOLUM E] IN SERUM OR PLASMA 1.41 mg/dL 0.50 - 1.40 09/10 H Specimen Type: SERUM No comment entered. Ordering Provider: LAMONTE STINSON Report Released Date/Time: Sep 04, 2022 11:19 AM Reporting Lab: [facility] HOSPITALRL [place] [facility] [address] [facility] [facility] [address] Performing Lab: [facility] [facility] HOSPITALUSETS [facility] [address] [facility] [address] [facility] HOSPITALRL TRN [facility] HOSPITALUSE [facility] BASIC METABOLIC PANEL (fasting) GLOMERULAR FILTRATION RATE/1.73 SQ M.PREDICTED [VOLUME RATE/AREA] IN SERUM, PLASMA OR BLOOD BY CREATININE- BASED FORMULA (CKD-EPI) 51 mL/min 09/10 L Specimen Type: SERUM No comment entered. Ordering Provider: LAMONTE STINSON Report Released Date/Time: Sep 04, 2022 11:19 AM Reporting Lab: [facility] [place] [facility] [address] [facility] [facility] [address] Performing Lab: [facility] HOSPITALUSE[address] [address] [facility] HOSPITALRL TRN [facility] HOSPITALUSE TS HCS Vital Signs Combined list of [...] TS HCS QNHP OL DIG ASSMT&MGMT 5-10 [id number] Diagnos is: ICD-10- CM Z51.81 Encount er for therape utic drug level monitor RIC Chaves 04/13 [facility] [place] Out[facility] Encounter [id number] ERICA MORGAN ISTOPHER E 06/24 [facility] [place] [facility] [facility] [place] [facility] Outpatient Encounter [id number] 07/01 [facility] [place] [facility] (631GE) QNHP OL DIG ASSMT&MGMT 5-10 [id number] Diagnos is: ICD-10- CM Z79.01 [facility] (curren t) use of anticoa gulants SHERMAN NAVARRO 09/09 [facility] (631GE) [facility] [place] [facility] Outpatient Encounter [id number] 09/09 [facility] [place] [facility] [place] [place] [facility] OFFICE O/P EST LOW 20 MIN [id number] Diagnos is: ICD-10- CM N40.1 Benign prostat ic hyperpl sarwat with lower urinary tract symp Loida STINSON 09/16 [facility] [place] [facility] Outpatient Encounter [id number] 06/14 [facility] Social History Combined list of available smoking, tobacco, and other social history from Department of Defense and Veterans Affairs facilities. Social History Type Response Date Comment Sourc e Tobacco smoking status NHIS VA-TOBACCO FORMER USER 09/17/2023 [facility] [place] [facility] History of tobacco use MA-TOBACCO QUIT 15 YRS OR MORE 09/17/2023 [facility] [place] [facility] History of tobacco use VA-TOBACCO FORMER USER 09/16/2022 [facility] [place] [facility] History of tobacco use VA-TOBACCO FORMER USER 09/12/2021 [facility] [place] [facility] History of tobacco use VA-TOBACCO FORMER USER 01/17/2020 [facility] [place] [facility] History of tobacco use VA-TOBACCO QUIT 15 YRS OR MORE 08/03/2018 [facility] [place] [facility] History of tobacco use QUIT TOBACCO USE > 7 YEARS AGO 10/22/2017 [facility] of tobacco use LIFETIME NON-TOBACCO USER 10/16/2016 [facility] Plan of Care List of future care activities from Department of Veterans Affairs facilities. Additional future care activities may be listed in the Assessment and Plan section. Date/Time Care Activity Care Activity Detail Facili ty 09/15/2024 AMBULATORY - MEDICINE AMBULATORY - MEDICI NE [facility]
== END ==
LOC: HO.CARD 10:57
PROVIDERS: PCP Internal Medicine; Visit Provider Internal Medicine Cardiovascular Disease
DX: I50.30 Unspecified diastolic (congestive) heart failure (principal)
CPT/HCPCS: 93306

== ENCOUNTER → 2024-08-07 11:01 | Outpatient (BNV) | payer MEDICARE, SELFPAY | PROVIDERS: PCP Internal Medicine; Visit Provider Internal Medicine Cardiovascular Disease | DX: I50.30 Unspecified diastolic (congestive) heart failure (principal); I51.7 Cardiomegaly; I35.8 Other nonrheumatic aortic valve disorders | CPT/HCPCS: 93306 ==

== ENCOUNTER 2024-08-15 14:30 | Outpatient (AMB) | payer MEDICARE, SELFPAY ==
[2024-08-15 14:33] VITALS: BP 120/70; PULSE 70; BMI 26.7
--- NOTE | 2024-08-15 14:33 | MHC.OFFVIS ---
Vital Signs 08/15/24 14:33 Height 5 ft 9 in Weight 180 lb 12.465 oz BMI 26.7 BP 120/70 Blood Pressure Location Lt brachial Position Sitting Pulse 70 Intake Visit Reasons: 6 mthf /up echo Intake Note: 6month follow-up with ekg feeling good Fox Raiser Required: No Allergies No Known Allergies Allergy (Verified 11/11/23 09:14) Medication List - Last Reconciled 08/15/24 by Miguel A Garay MD atorvastatin 10 mg PO DAILY dabigatran etexilate (Pradaxa) 150 mg PO BID diltiazem HCl CD 120 mg PO DAILY empagliflozin (Jardiance) 10 mg PO DAILY@1200 finasteride 5 mg PO DAILY furosemide 40 mg PO DAILY latanoprost 0.005% 1 drp ophthalmic (eye) BEDTIME levothyroxine 100 mcg PO DAILY metoprolol succinate ER 100 mg PO BID omeprazole 20 mg PO DAILY tamsulosin 0.4 mg PO BEDTIME HPI Comments Details: Dirk comes for follow-up. He has been doing very well from cardiac perspective. Has been exercising regularly. Said he can not go for long distances walk due to both knee issues. However he does walk in the pool and does other aerobic exercise including rowing without any symptoms. No orthopnea, PND, leg edema. Takes all his medications. No prolonged palpitation irregular heartbeat. Denies any bleeding issues or neurologic events. Recent echocardiogram shows stable cardiac structure and function with dilated right-sided chambers which is not new. He has right-sided filling pressures are within normal limits. [facility] Medical History Generalized anxiety disorder Hypothyroidism BPH (benign prostatic hyperplasia) Elevated troponin Chronic kidney disease (HFpEF) heart failure with preserved ejection fraction Chronic atrial fibrillation HTN (hypertension) Tricuspid regurgitation Biatrial enlargement Surgical History Hx of cataract surgery History of esophageal dilatation Hx of inguinal hernia repair History of appendectomy Family History Father No problems noted. Mother HTN (hypertension) Social History Household Members: Spouse Housing: House Do you presently have visiting nurse or other home services: No Alcohol intake: current Alcohol intake frequency: 0-2 drinks per day Alcohol type: beer and wine Patient Tobacco Use Status: Former Tobacco user Years Smoked: 10 +/- Advance Directives Date on File: 08/05/23 service: No Current occupational status: retired Review of Systems Const Denies chills, Denies fatigue, Denies fever(s), Denies frequent falls, Denies weakness, Denies weight gain and Denies weight loss ENT Denies dizziness Card Denies chest pain, Denies leg edema, Denies lightheadedness, Denies palpitations, Denies dyspnea, Denies dyspnea on exertion, Denies orthopnea and Denies other (loss of consciousness) Resp Denies cough, Denies dyspnea and Denies dyspnea on exertion GI Denies hematochezia and Denies change in stool character Musc Denies abnormal gait, Denies muscle weakness, Denies numbness, Denies radiating pain into limb and Denies tingling Neuro Denies abnormal gait, Denies dizziness, Denies frequent falls, Denies numbness, Denies tingling and Denies weakness Endo Denies fatigue and Denies palpitations Physical Exam Vital Signs: Last Vital Signs Pulse 70 08/15/24 14:33 BP 120/70 08/15/24 14:33 BMI result Body Mass Index 26.7 Last Vital Signs Temp 97.3 F 08/09/21 11:39 Pulse 101 H 08/09/21 11:39 Resp 18 08/09/21 11:39 BP 120/87 08/09/21 11:39 Pulse Ox 95 08/09/21 11:39 BMI result Body Mass Index 28.2 Const General: cooperative, comfortable, no acute distress, alert, awake, Physically active and well groomed Nutritional Appearance: overweight Orientation/consciousness: patient oriented x3 Neck Neck: Yes trachea midline and Yes no JVD Resp Effort & Inspection: normal respiratory effort Auscultation: clear to auscultation bilaterally and diminished lung sounds Cardio Jugular venous distension: no JVD Rhythm: abnormal rhythm irregularly irregular Heart sounds: S1 normal heart sound present, S2 normal heart sound present, no click, no gallops and no murmurs GI Auscultation: normal bowel sounds Skin General skin exam: no rashes or lesions noted Neuro General: patient oriented x3 and no focal motor deficits Extrem General: Yes no clubbing, cyanosis or edema Office Procedures EKG Details: EKG shows atrial fibrillation with nonspecific T-wave changes 42829-[id number], Complete Assessment & Plan Assessment & Plan (1) (HFpEF) heart failure with preserved ejection fraction: Code(s): I50.30 - Unspecified diastolic (congestive) heart failure Category: Medical Plan: Heart failure preserved ejection fraction with predominantly right-sided findings with right-sided chamber enlargement. Clinically euvolemic and well compensated current diuretic dose with furosemide as well as Jardiance. He has done extremely well with good functional capacity at this point time. Encouraged to continue maintain activity level as tolerated. Daily weight monitoring avoidance salt loading was discussed. Additional diuretics as need be. Continue current aggressive rate control for atrial fibrillation. (2) Chronic atrial fibrillation: Code(s): I48.20 - Chronic atrial fibrillation, unspecified Category: Medical Plan: Chronic atrial fibrillation, currently rate controlled on dual therapy with diltiazem and metoprolol. He had failed rhythm control many years ago. He has question whether he can pursue rhythm control approach and we discussed that likelihood of pursuing in maintaining rhythm is extremely low. Continue full oral anticoagulation, currently on dabigatran twice a day which has tolerated for many years. Continue the same. Semi annual renal function test should be pursued. Will follow up in the clinic in 6 months time, sooner p.r.n.. Thank you for allowing me to partake in his care Coding Level of Care Code Est Pt Level 4 (32557) Complex EM visit Add On G2211 Diagnoses (HFpEF) heart failure with preserved ejection fraction I50.30 Chronic atrial fibrillation I48.20 CPT Codes EKG - CPT: 23913-[id number], Complete ([id number])
--- OUTSIDE RECORDS SUMMARY | 2024-08-15 15:53 | XMS_ITS ---
Author Organization Maykel Levin MD Address [address] [place] [phone] Care Team Providers Care Prison Guard Name Role Phone Maykel Levin Primary Care Provider Results Component Value Reference Range Notes Liver Panel Reviewed date:08/02/2024 05:36:26 PM Interpretation: Performing Lab:[facility], [address] [place] [phone] Notes/Report: Bilirubin Total 1.7 0.0-1.0 mg/dL Slight Icte morena. Bilirubin Direct 0.5 0.0-0.5 mg/dL Slight Ict erus. Aspartate Amino Transferase 26 5-37 U/L Alanine Aminotransferase 20 0-40 U/L Total Protein 7.0 6.5-8.0 g/dL Albumin Level 4.3 3.5-5.0 g/dL Alkaline Phosphatase 71 39-117 U/L REASON FOR VISIT fasting lipids Encounters Encounter Location Date Provider Diagnosis Maykel Levin MD [address] [facility] [address] [place], [place] [id number] 07/31/2024 Maykel Levin Pure hypercholestero lemia E78.00 Assessments Encounter Date Diagnosis (ICD Code) Assessment Notes Treatment Notes Treatment Clinical Notes Section Notes 07/31/2024 Pure hypercholesterolemia (ICD-10 - E78.00) Plan Of Treatment Pending Test Test Name Order Date Lipid Panel with Reflex 07/31/2024 Next Appt Details Provider Name:Maykel Jason ier, 02/05/2025 07:15:00 AM, [address] [facility], [address], [place], [place], [id number], Provider Name:Maykel Jason ier, 02/12/2025 09:30:00 AM, [address] [place] [address], [address], [place], [place], [phone], Progress Notes * Madan OLIVEIRA JDOB :1945 (79 yo M)Acc No.[id number]:07/31/2024 Progress Note Patient:?MOILAMONTECharlene HALL dena Little Provider:?Maykel Levin MD :1945???Age:79 Y???Sex:Male Randy e:07/31/2024 Address:[address] [place], [place] [id number] Subjective: * Chief Complaints: * ???1. Fasting [...] MD Date:?0 07/31/2024 Generated for Wilmer salazar/Tequila/eTransmitting on:?08/15/2024 03:52 PM EDT
--- OUTSIDE RECORDS SUMMARY | 2024-08-15 15:53 | XMS_ITS | Patient Health Record ---
Author Organization Maykel Levin MD Address [address] [place], [place] [id number] Care Team Providers Care Handle Sewer Name Role Phone Maykel Levin Primary Care Provider Allergies No Known Allergies Results Component Value Reference Range Notes Urinalysis and Microscopic Reviewed date:09/06/2023 02:28:36 PM Interpretation: Performing Lab:[facility], [address] [place] [phone] Notes/Report: Color Urine Yellow Appearance Urine Clear PH 6.0 5.0-9.0 Glucose Urine UA >=1000 Negative mg/dL Urine Blood Negative Negative Specific Inman - Urine 1.015 1.005-1.025 Urine Protein Negative Neg-Trace mg/dL Urine Ketones Negative Negative mg/dL Nitrite Urine Negative Negative Leukocyte Esterase Urine Negative Negative RBC Urine 0-2 0-2 /HPF WBC Urine 0-5 0-5 /HPF Squamous Epithelial Cell Urine 0-2 0-2 /HPF Bacteria Urine None Seen None Seen Hyaline Casts Urine 0-2 0-2 /LPF Urine Culture Reviewed date:09/09/2023 12:06:07 PM Interpretation: Performing Lab:[facility], [address] [place] [phone] Notes/Report: Urine Culture No growth. XR chest 2V Reviewed date:11/11/2023 04:52:45 PM Interpretation: Performing Lab: Notes/Report: [address] [address] XRay Report Signed Patient: Madan Oliveira MR#: [id number] : 1945 Acct:[id number] Age/Sex: 78 / M ADM Date: 11/11/23 Loc: [facility] Attending Dr: Ciera Mendoza CLINICAL TRIAL ASSOCIATE Ordering Physician: Magaly Joyce Date of Service: 11/11/23 Procedure(s): XR chest 2V Accession Number(s): [id number] cc: Maykel Levin MD; Magaly Joyce EXAMINATION: [...] in OV> 11/11/23 1249 DD/ 1128 TD/TT: Devil Tender: [address] [address] XRay Report Signed Patient: Madan Oliveira MR#: [id number] : 1945 Acct:[id number] Age/Sex: 78 / M ADM Date: 11/11/23 Loc: [facility] Attending Dr: Jeanie Mendoza CLINICAL TRIAL ASSOCIATE Ordering Physician: Magaly Joyce Date of Service: 11/11/23 Procedure(s): XR chest 2V Accession Number(s): [id number] cc: Maykel Levin MD; Magaly Joyce EXAMINATION: [...] in OV> 11/11/23 1249 DD/ 1128 TD/TT: Devil Tender: Thyroid Stimulating Hormone Reviewed date:02/03/2024 12:34:02 PM Interpretation: Performing Lab:[facility], [address] [place] [phone] Notes/Report: Thyroid Stimulating Hormone 0.77 0.32-4.0 uIU/mL TSH 3rd Generation ([facility]) Lipid Panel Reviewed date:08/02/2024 05:36:51 PM Interpretation: Performing Lab:[facility], [address] [place] [phone] Notes/Report: Triglycerides 95 <150 mg/dL Desirable Triglyceride: [...] 10/16/2013 Administered Fluarix Quadrivalent IM Intramuscular 01/02/2014 Administe red Fluarix Quadrivalent IM Intramuscular 12/18/2014 Administe red Prevnar 13 IM Intramuscular 04/30/2015 Administered Fluarix Quadrivalent IM Intramuscular 12/03/2015 Administe red Fluarix Quadrivalent IM Intramuscular 12/14/2016 Administe red TDaP IM Intramuscular 05/03/2017 Administered Fluarix Quadrivalent IM Intramuscular 12/20/2017 Administe red Influenza High Dose IM Intramuscular 01/03/2019 [...] W/U Status Risk Notes Problem Erectile dysfunction (705622470) Erectile Dysfunction (607.84) Active confirmed Problem 42401015 Prostatism (N40.0) Active confirmed Problem 61211311 Hypercalcemia (E83.52) Active confirme d Problem 436584887 Chronic atrial fibrillation (I48.2) Active confirmed Problem Acute on chronic diastolic heart failure (879222154) Acute on chronic diastolic (congestive) heart failure (I50.33) Active confirmed Problem Ascites (895902913) Other ascites (R18.8) Active confirmed Problem 0841716 Diastolic dysfun ction (I51.9) Active confirmed Problem 268183332 Tubular adenoma of colon (D12.6) Active confirmed Problem 27159709 Essential hypert ension (I10) Active confirmed Problem 250152653 Acquired hypothy roidism (E03.9) Active confirmed Problem 63148987 Monocytosis (D72.821) Active confirmed Problem 879942735 Chronic a-fib (I48.2) Active confirme d Problem Acute diastolic heart failure (115666375) Acute diastolic congestive heart failure (I50.31) Active confirmed Problem 179822479 Pure hypercholesterolemia (E78.00) Active confirmed Problem Acute asthma (884727228) Acute asthma (J45.909) Active confirmed Problem 244590444 BMI 30.0-30.9,ad ult (Z68.30) Active confirmed Problem Tomography - chest abnormal (463484388) Abnormal CT scan, chest (R93.89) Active confirmed Problem 868906354 Chronic atrial fibrillation, unspecified (I48.20) Active confirmed Problem 974121352 Chronic atrial fibrillation (I48.20) Active confirmed Vital [...] Date Provider Diagnosis Maykel Levin MD [address] [facility] [address] [place] [id number] 08/19/2023 Maykel Levin Septicemia A41.9 Maykel Levin MD [address] [place] [address] Drive [address] [place] [id number] 02/08/2024 Maykel Levin Essential hypertensi on I10 ; Encounter for general adult medical examination without abnormal findings Z00.00 ; Prostatism N40.0 ; Acute diastolic congestive heart failure I50.31 ; Acquired hypothyroidism E03.9 ; Pure hypercholesterolemia E78.00 and Chronic atrial fibrillation I48.20 Maykel Levin MD [address] [place] [id number] 08/07/2024 Maykel Levin Pure hypercholestero lemia E78.00 ; Onychomycosis B35.1 and Acute on chronic diastolic (congestive) heart failure I50.33 Maykel Levin MD [address] [place] [address] [id number] 11/19/2023 Maykel Levin Acute asthma J45.909 Maykel Levin MD [address] [place] [address] [address] [id number] 06/12/2024 Maykel Levin Assessments Encounter Date Diagnosis (ICD Code) Assessment [...] Z00.00) Labs reviewed and discussed with patient 08/07/2024 Pure hypercholesterolemia (ICD-10 - E78.00) not quite at goal, advised on diet, will continue current regiment and will continue to monitor 08/07/2024 Onychomycosis (ICD-1 0 - B35.1) to see drill sharpener operator 11/19/2023 Acute asthma (ICD-10 - J45.909) 02/08/2024 [...] 02/08/2024 Chronic atrial fibrillation (ICD-10 - I48.20) 08/07/2024 Other stable, will continue current regiment Plan Of Treatment Pending Test Test Name Order Date XR CHEST 2 VIEW PA & LAT 07/25/2021 US RENAL BILATERAL 03/02/2017 US abdomen complete 08/05/2021 Next Appt Details Provider Name:Maykel Zarate Eren stewart, 02/05/2025 07:15:00 AM, [address] [place] [address], [address], [phone], Provider Name:Maykel Tessa Eren ier, 02/12/2025 09:30:00 AM, [address] [place] [address], Suite [facility], [place], [place], [phone], Insurance Providers Payer Name Payer Address Payer Phone Subscriber Number Group Number Insured Name Patient Relationship to Insured Coverage Start Date Coverage End Date [employer] MED[employer] ADVANTAGE PLAN [facility] [address] [place] [phone] [id number] Madan Barrios Self - patient is the insured [facility] [address] [place] [id number] Madan Barrios Self - patient is the insured Medical (General) History Medical History History ICD Code Colonoscopy 2006; colonoscop y and endoscopy done 01/15/2012; colonoscopy by Dr. Dickey 03/11/17 - no more indicated
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
--- OUTSIDE RECORDS SUMMARY | 2024-08-15 15:53 | XMS_ITS ---
Author Organization Maykel Levin MD Address [address] [facility] [address] [place] [phone] Care Team Providers Care Telegraph Operator Name Role Phone Maykel Levin Primary Care Provider [phone] REASON FOR VISIT HCC Risk Codes 08/07 Encounters Encounter Location Date Provider Diagnosis Maykel Levin MD [address] [facility] [address] [place] [id number] 06/12/2024 Maykel Levin Plan Of Treatment Next Appt Details Provider Name:Maykel stewart, 02/05/2025 07:15:00 AM, [address] [place] [address], [address], [phone], Provider Name:Maykel stewart, 02/12/2025 09:30:00 AM, [address] [place] [address], [address], [id number], Progress Notes * MOILAMONTEMadan HALL JDOB :1945 (79 yo M)Acc No.[id number]:06/12/2024 Patient:?Charlene OLIVEIRA :1945???Age:79 Y???Sex:Male Address:[address] [place] [address] [place] [address] * true * Date:? Generated for Davidai marie/Tequila/eTransmitting on:?08/15/2024 03:52 PM EDT
--- OUTSIDE RECORDS SUMMARY | 2024-08-15 15:53 | XMS_ITS | Encounter Summary ---
Author Name [facility] Organization [facility] Address [address] [place] [address] Care Team Providers Care Photonics Engineer Name Role Phone EDWARD BECERRA Primary Care Provider [facility] Insurance Providers: All historical and [...] Saab's Name Patient's Relationship to Policy Saab [facility] ([facility]) MEDICARE ADVANTAGE [facility] ([facility]) Mar 29, 2016 [id number] PATIENT Selected Encounter This section includes the information on record at [place] for the Encounter. Date/Time Encounter Type Encounter Description Reason Pro vider Source August 15, 2024 12:03 AM Outpatient Encounter ADMIN PAT ACTIVTIES (MASNONCT) IHE Encounter Template Text not used by [place] Plan of Treatment: Future Appointments (+ 6 [...] 20 appointments. The data comes from all [place] treatment facilities. Appointment Date/Time Appointment Type Appointme nt Facility Name Sep 15, 2024 01:00 PM AM[place]ULATORY - [place]IC[place] [facility] [place] [facility] Social History: Smoking Status (Most current) and Tobacco Use (All prior to encounter date) This section includes the most current, and the historical, smoking and tobacco- related health factors from the [place] facility where the Encounter took place. Current Smoking Status This section includes the most current smoking, or tobacco-related health factor, from the [place] facility where the Encounter took place. Date/Time Current Smoking Status Comment Facil ity Sep 17, 2023 01:00 PM VA-TOBACCO FORMER USER [place] [facility] [place] [facility] Tobacco Use History This section includes a history of the smoking, or tobacco-related health factors, that were collected on or before the date of the Encounter. The data comes from the [place] facility where the Encounter took place. Date/Time Smoking Status/Tobacco Use Comment F acility Sep 17, 2023 01:00 PM VA-TOBACCO QUIT 15 YRS OR MORE [place] [facility] [place] [facility] Sep 16, 2022 01:00 PM VA-TOBACCO FORMER USER [place] [facility] [place] [facility] Sep 16, 2022 01:00 PM VA-TOBACCO QUIT 15 YRS OR MORE [facility] [place] [facility] Sep 12, 2021 11:00 AM VA-TOBACCO FORMER USER [place] [facility] [place] [facility] Sep 12, 2021 11:00 AM VA-TOBACCO QUIT 15 YRS OR MORE [facility] [place] [facility] Jan 17, 2020 11:13 AM VA-TOBACCO FORMER USER [facility] [place] [facility] Jan 17, 2020 11:13 AM VA-TOBACCO QUIT 15 YRS OR MORE [facility] [place] [facility] August 03, 2018 01:00 PM VA-TOBACCO FORMER USER [facility] [place] [facility] August 03, 2018 01:00 PM VA-TOBACCO QUIT 15 YRS OR MORE [place] [facility] [place] [facility] Oct 22, 2017 01:09 PM QUIT TOBACCO USE > 7 YEARS AGO [facility] Oct 16, 2016 10:43 AM LIFETIME NON-TOBACCO USER [facility] Encounter Notes: All associated encounter notes This section contains the clinical notes associated to the Encounter. Date/Time Encounter Note(s) Provider Source August 15, 2024 12:03 AM PHARMACY NOTE: LOCAL TITLE: PHARMACY CUSTOMER CARE MEDICATION RENEWAL STANDARD TITLE: PHARMACY NOTE DATE OF NOTE: AUGUST 15, 2024@00:03 ENTRY DATE: AUGUST 15, 2024@00:03:21 AUTHOR: ELBA FOOTE EXP COSIGNER: URGENCY: STATUS: COMPLETED Date: July Division: [facility] Pt referred by Pharmacy Call Center for medication renewal: Non-controlled/maintenan ce medication Medications requested: [id number] DABIGATRAN ETEXILATE 150MG ORAL CAP Defer to primary care provider To be mailed . Please review and renew if appropriate. *This note was generated by [facility] Pharm[facility] Customer Care. If you have any questions or need assistance, do not contact this author. Please refer all questions to your local, on-site pharmacy departments. /montse/ ELBA FOOTE CPhT Test And Turn Up Technician, [place]/Pharmacy Customer Care Signed: 08/15/2024 00:04 Receipt Acknowledged By: 08/15/2024 07:33 /montse/ Edward Becerra DNP, BEAM BUILDER-BC, CNL Primary Care Nurse Practitioner 08/15/2024 09:07 /montse/ MALORIE FLORES Registered Nurse for ELBA KEMP [facility]
--- OUTSIDE RECORDS SUMMARY | 2024-08-15 15:53 | XMS_ITS ---
Author Organization Maykel Levin MD Address [address] [place] [phone] Care Team Providers Care Electrolysis Needle Operator Name Role Phone Maykel Levin Primary [...] Problem Acute on chronic diastolic heart failure ([id number]) Acute on chronic diastolic (congestive) heart failure (I50.33) Active confirmed Vital Signs Blood pressure systolic 120 mm Hg 08/08/19 25 Blood pressure diastolic 70 mm Hg 025 Height 66 in 08/07/2024 Weight 184 lbs 08/07/2024 BMI 29.7 kg/m2 08/07/2024 weight is up 2 pounds since 02-08-24 Encounters Encounter Location Date Provider Diagnosis Maykel Levin MD [address] [place] [address] Drive [address] [place] [phone] 08/07/2024 Maykel Levin Pure hypercholestero lemia E78.00 [...] Onychomycosis (ICD-1 0 - B35.1) to see camera repairman 08/07/2024 Acute on chronic diastolic (congestive) heart [...] will continue to monitor Onychomycosis to see camera repairman Acute on chronic diastolic ( congestive) heart failure stable, will cntnue current regiment Other stable, will continu e current regiment Next Appt Details Provider Name:Maykel stewart, 02/05/2025 07:15:00 AM, [address] [place] [address], [place] [address], [place], [place], [phone], Provider Name:Maykel stewart, 02/12/2025 09:30:00 AM, [address] [place] [address], [place] [address], [place], [place], [phone], Progress Notes * Madan OLIVEIRA JDOB :1945 (79 yo M)Acc No.[id number]:08/07/2024 Progress Notes Patient:?Charlene OLIVEIRA Little Provider:?Maykel Levin MD :1945???Age:79 Y???Sex:Male Randy e:08/07/2024 Address:[address] [place], [place] [phone] Subjective: * Chief Complaints: * ???6 monthCheck right great toenail * HPI: ???Symptom(s):?patient is a 79 yo male here for 6 month follow up visit. * ROS:?General/Constitutional:?Denies?Chills.?Denies?Fatigue.?Denies?Fever.?Denies?Headache.?ENT:?Denies?Sore throat.?Respiratory:?Denies?Cough.?Denies?Shortness of breath at rest.?Denies?Shortness of breath with exertion.?Cardiovascular:?Denies?Chest pain at rest.?Denies?Chest pain with exertion.?Denies?Palpitations.?Denies?Shortness of breath.?Gastrointestinal:?Denies?Diarrhea.?Denies?Nausea.? * Medical History:? * Surgical History:? * Hospitalization/Major Diagno stic Procedure:? * Medications:?TakingFinasteri de 5 MG Tablet 1 [...] Allergies:?N.K.D.A.yes[Aller gies Verified] Objective: * Vitals:?Ht: 66, Wt: 184, BMI :29.7, BP:120/70, Wt-k.46. weight is up 2 pounds since 02-08-24. * Examination: ???General Examination: ?GENERAL APPEARANCE:?alert, well hydrated, in no distress.?HEAD:?normocephalic.?SKIN:?good turgor.?HEART:?regular rate and rhythm.?LUNGS:?no wheezes, rales, rhonchi, good air movement, clear to auscultation bilaterally.?EXTREMITIES:?abnormal/ with left great toenail with onychomycosis. has some pigment on the eedge that appears to be from bleeding.? Assessment: * Assessment: 1.?Pure hypercholesterolemia - E78.00 (Primary)???2.?Onychomycosis - B35.1???3.?Acute on chronic diastolic (congestive) heart failure - I50.33??? Plan: * Treatment: 2.?Onychomycosis? Notes: to see camera repairman?? 3.?Acute on chronic diastoli c (congestive) heart failure? Continue Furosemide Tablet, 40 MG, alternating 40mg and 20mg, Orally.?? Notes: stable, will cntnue current regiment?? 4.?Others? Continue Pradaxa Capsule, 150 MG, 1 capsule, Orally, Twice a day;?Continue Metoprolol Succinate ER Tablet Extended Release 24 Hour, 100 MG, 1 tablet, Orally, Once a day.?? Notes: stable, will continue current regiment?? * Procedure Codes:? * * Sign off status: Completed true * Provider:?Maykel Levin MD Date:?0 08/07/2024 Generated for Wilmer salazar/Tequila/eTransmitting on:?08/15/2024 03:53 PM EDT History and Physical Notes * [...]
--- OUTSIDE RECORDS SUMMARY | 2024-08-15 15:53 | XMS_ITS | Continuity of Care Document ---
Author Name [facility] Organization [facility] Care Team Providers Care Live In Companion Name Role Phone [facility] Unavailable Unavailable Problems Combined list of problems from Department of Defense and Veterans Affairs facilities. It does not include entries that were removed or entered in error. 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 [facility] (6[facility]) Diagnosis: ICD-10-CM Z51.81 Encounter for therapeutic drug level monitoring Active Diagnosis [facility] [place] [facility] Medications Combined list of outpatient medications from [...] MUST BE USED WITHIN 4 MONTHS) ORAL SUSPEND ED 08/16/2025 [id number] ALYSON STINSON 2024 [facility] DABIGATRAN ETEXILATE 150MG CAP,ORAL TAKE ONE CAPSULE BY MOUTH EVERY 12 HOURS (ONCE OPENED, THE MEDICATI ON MUST BE USED WITHIN 4 MONTHS) ORAL DISCONT INUED 07/02/2024 [id number] 5 ALYSON STINSON 2023 [facility] DABIGATRAN ETEXILATE 150MG CAP,ORAL TAKE ONE CAPSULE BY MOUTH EVERY TWELVE HOURS FOR ATRIAL FIBRILLA TION [facility] REMOTE RX: [id number] KEEP IN ORIGINAL CONTAINE R ORAL DISCONT INUED BY NUBIA R 06/18/2024 [id number] ESTELLE VERMA I 2024 60 [facility] DILTIAZ[facility] HCL 60MG 12HR CAP,SA TAKE 1 CAPSULE BY MOUTH TWICE DAILY ORAL ACTIVE [facility] STINSON [facility] EMPAGLIFLOZ IN 10MG TAB TAKE ONE TABLET BY MOUTH ONCE DAILY FOR DIABETES ORAL SUSPEND ED 08/16/2025 [id number] 5 ALYSON STINSON 2024 90 [facility] EMPAGLIFLOZ IN 10MG TAB TAKE ONE TABLET BY MOUTH ONCE DAILY FOR DIABETES ORAL DISCONT INUED 09/17/2024 [id number] 5 ALYSON STINSON 2023 90 [facility] EMPAGLIFLOZ IN 10MG TAB TAKE ONE TABLET BY MOUTH ONCE DAILY FOR DIABETES ORAL DISCONT INUED 07/28/2023 [id number] 4 ALYSON STINSON 2022 90 [facility] FINASTERIDE 5MG TAB TAKE ONE TABLET BY MOUTH ONCE DAILY ORAL ACTIVE ALYSON STINSON 2023 [facility] FUROSEMIDE 40MG TAB TAKE ONE TABLET BY MOUTH ONCE DAILY ORAL ACTIVE ALYSON STINSON 2021 [facility] LATANOPROST 0.005% SOLN,OPH INSTILL 1 DROP INTO EACH EYE AT BEDTIME OPHTHA LMIC ACTIVE Britney GANDARA 2016 [place] LEVOTHYROXI NE NA 100MCG TAB (SYNTHROID) TAKE ONE TABLET BY MOUTH EVERY MORNING 30 MINUTES BEFORE BREAKFAS T ORAL ACTIVE Britney GANDARA 2016 [facility] METOPROLOL TARTRATE 100MG TAB TAKE ONE TABLET BY MOUTH TWICE DAILY ORAL ACTIVE ALYSON STINSON 2023 [facility] OMEPRAZOLE 20MG CAP,EC TAKE 1 CAPSULE BY MOUTH EVERY MORNING 30 MINUTES BEFORE BREAKFAS T ORAL ACTIVE Britney GANDARA 2016 [facility] SILDENAFIL CITRATE 100MG TAB TAKE ONE TABLET BY MOUTH ONCE DAILY NEEDED TAKE 1 HOUR PRIOR TO SEXUAL ACTIVITY ORAL 11/03/2023 [id number] ALYSON STINSON 2022 6 [facility] TAMSULOSIN HCL 0.4MG CAP TAKE 1 CAPSULE BY MOUTH AT BEDTIME ORAL ACTIVE ALYSON STINSON 2021 [facility] TERAZOSIN HCL 5MG CAP TAKE 1 CAPSULE BY MOUTH ONCE DAILY ORAL ACTIVE ALYSON STINSON 2021 [facility] Immunizations Combined list of available immunizations from the Department of Defense and Veterans Affairs facilities. 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 Comments Source COVID-19 (MODERNA), MRNA, LNP-S, PF, 100 MCG/0.5 ML DOSE 2 2020 207 complet ed MOD; [id number]; 1 [facility] COVID-19 (MODERNA), MRNA, LNP-S, PF, 100 MCG/0.5 ML DOSE 1 2020 207 complet ed MOD; [id number]; 1 [facility] INFLUENZA, UNSPECIFIED FORMULATION 2019 88 complet ed [facility] INFLUENZA, SEASONAL, INJECTABLE 2018 141 complet ed [facility] INFLUENZA, SEASONAL, INJECTABLE 2017 141 complet ed [facility] TDAP 2017 115 complet ed [facility] INFLUENZA, SEASONAL, INJECTABLE 2016 141 complet ed [facility] PNEUMOCOCCAL CONJUGATE PCV 13 2015 133 complet ed YES [facility] PNEUMOCOCCAL POLYSACCHARID E PPV23 2013 33 complet ed [facility] ZOSTER LIVE 2011 121 complet ed YES [facility] Results Combined list of recent chemistry, hematology and other laboratory results from Department of Defense and Veterans Affairs, ranging from 15 months to all on record, depending upon the facility. Order Name Results Value Reference Range Date Interpretation Specimen Comments Source CBC LEUKOCYTES [#/VOLUME] IN BLOOD BY AUTOMATED COUNT 6.93 10*3/u L 4.50 - 11.00 09/08 Specimen Type: BLOOD No comment entered. Ordering Provider: LAMONTE STINSON Report Released Date/Time: Sep 01, 2023 03:23 PM Reporting Lab: [facility] [address] [facility] [address] Performing Lab: [facility] [address] [facility] [address] [facility] CBC ERYTHROCYTE S [#/VOLUME] IN BLOOD BY AUTOMATED COUNT 5.22 10*6/u L 4.23 - 5.66 09/08 Specimen Type: BLOOD No comment entered. Ordering Provider: LAMONTE STINSON Report Released Date/Time: Sep 01, 2023 03:23 PM Reporting Lab: [facility] [place] [facility] [address] [facility] [address] Performing Lab: [facility] [address] [facility] [address] [facility] CBC HEMOGLOBIN [MASS/VOLUM E] IN BLOOD 16.1 g/dL 12.8 - 17 09/08 Specimen Type: BLOOD No comment entered. Ordering Provider: LAMONTE STINSON Report Released Date/Time: Sep 01, 2023 03:23 PM Reporting Lab: [facility] [address] [facility] [address] Performing Lab: [facility] [place] [facility] [address] [facility] [address] [facility] CBC HEMATOCRIT [VOLUME FRACTION] OF BLOOD BY AUTOMATED COUNT 47.8 39.2 - 50.4 09/08 Specimen Type: BLOOD No comment entered. Ordering Provider: LAMONTE STINSON Report Released Date/Time: Sep 01, 2023 03:23 PM Reporting Lab: [facility] [facility] [address] [facility] [address] Performing Lab: [facility] [place] [facility] [address] [facility] [address] [facility] CBC MCV [ENTITIC VOLUME] BY AUTOMATED COUNT 91.6 fL 82 - 99 09/08 Specimen Type: BLOOD No comment entered. Ordering Provider: LAMONTE STINSON Report Released Date/Time: Sep 01, 2023 03:23 PM Reporting Lab: [facility] [facility] [address] [facility] [address] Performing Lab: [facility] [facility] [address] [facility] [address] [facility] CBC MCHC [MASS/VOLUM E] BY AUTOMATED COUNT 33.7 g/dL 30.8 - 35.1 09/08 Specimen Type: BLOOD No comment entered. Ordering Provider: LAMONTE STINSON Report Released Date/Time: Sep 01, 2023 03:23 PM Reporting Lab: [facility] [address] [facility] [address] Performing Lab: [facility] [place] [facility] [address] [facility] [address] [facility] CBC PLATELETS [#/VOLUME] IN BLOOD BY AUTOMATED COUNT 189 10*3/u L 140 - 360 09/08 Specimen Type: BLOOD No comment entered. Ordering Provider: LAMONTE STINSON Report Released Date/Time: Sep 01, 2023 03:23 PM Reporting Lab: [facility] [place] [facility] [address] [facility] [address] Performing Lab: [facility] [place] [facility] [address] [facility] [address] [facility] CBC ERYTHROCYTE DISTRIBUTIO N WIDTH [RATIO] BY AUTOMATED COUNT 14.1 12.0 - 16.0 09/08 Specimen Type: BLOOD No comment entered. Ordering Provider: LAMONTE STINSON Report Released Date/Time: Sep 01, 2023 03:23 PM Reporting Lab: [facility] [place] [facility] [address] [facility] [address] Performing Lab: [facility] [place] [facility] [address] [facility] [address] [facility] CBC MCH [ENTITIC MASS] BY AUTOMATED COUNT 30.8 pg 26.2 - 32.6 09/08 Specimen Type: BLOOD No comment entered. Ordering Provider: LAMONTE STINSON Report Released Date/Time: Sep 01, 2023 03:23 PM Reporting Lab: [facility] [place] [facility] [address] [facility] [address] Performing Lab: [facility] [place] [facility] [address] [facility] [address] [facility] BASIC METABOLIC PANEL (non-fast ing) UREA NITROGEN [MASS/VOLUM E] IN SERUM OR PLASMA 22 mg/dL 7 - 25 09/08 Specimen Type: SERUM No comment entered. Ordering Provider: LAMONTE STINSON Report Released Date/Time: Sep 01, 2023 03:23 PM Reporting Lab: [facility] [place] [facility] [address] [facility] [address] Performing Lab: [facility] [address] [facility] [address] [facility] BASIC METABOLIC PANEL (non-fast ing) GLUCOSE [MASS/VOLUM E] IN SERUM OR PLASMA 120 mg/dL 65 - 100 09/08 H Specimen Type: SERUM No comment entered. Ordering Provider: LAMONTE STINSON Report Released Date/Time: Sep 01, 2023 03:23 PM Reporting Lab: [facility] [address] [facility] [address] Performing Lab: [facility] [address] [facility] BASIC METABOLIC PANEL (non-fast ing) SODIUM [MOLES/VOLU ME] IN SERUM OR PLASMA 137 mmol/L 135 - 145 09/08 Specimen Type: SERUM No comment entered. Ordering Provider: LAMONTE STINSON Report Released Date/Time: Sep 01, 2023 03:23 PM Reporting Lab: [facility] [address] Performing Lab: [facility] [address] [facility] BASIC METABOLIC PANEL (non-fast ing) POTASSIUM [MOLES/VOLU ME] IN SERUM OR PLASMA 4.1 mmol/L 3.5 - 5.0 09/08 Specimen Type: SERUM No comment entered. Ordering Provider: LAMONTE STINSON Report Released Date/Time: Sep 01, 2023 03:23 PM Reporting Lab: [facility] [place] [address] [address] Performing Lab: [facility] [address] [address] [facility] BASIC METABOLIC PANEL (non-fast ing) CHLORIDE [MOLES/VOLU ME] IN SERUM OR PLASMA 102 mmol/L 100 - 110 09/08 Specimen Type: SERUM No comment entered. Ordering Provider: LAMONTE STINSON Report Released Date/Time: Sep 01, 2023 03:23 PM Reporting Lab: [address] [address] Performing Lab: [address] [address] [place] [address] BASIC METABOLIC PANEL (non-fast ing) CARBON DIOXIDE, TOTAL [MOLES/VOLU ME] IN SERUM OR PLASMA 25 meq/L 20 - 30 09/08 Specimen Type: SERUM No comment entered. Ordering Provider: LAMONTE STINSON Report Released Date/Time: Sep 01, 2023 03:23 PM Reporting Lab: [address] [address] Performing Lab: [address] [address] [facility] BASIC METABOLIC PANEL (non-fast ing) CREATININE [MASS/VOLUM E] IN SERUM OR PLASMA 1.46 mg/dL 0.50 - 1.40 09/08 H Specimen Type: SERUM No comment entered. Ordering Provider: LAMONTE STINSON Report Released Date/Time: Sep 01, 2023 03:23 PM Reporting Lab: [address] [address] Performing Lab: [address] [address] [facility] BASIC METABOLIC PANEL (non-fast ing) GLOMERULAR FILTRATION RATE/1.73 SQ M.PREDICTED [VOLUME RATE/AREA] IN SERUM, PLASMA OR BLOOD BY CREATININE- BASED FORMULA (CKD-EPI 2020) 49 mL/min 60 09/08 L Specimen Type: SERUM No comment entered. Ordering Provider: LAMONTE STINSON Report Released Date/Time: Sep 01, 2023 03:23 PM Reporting Lab: [facility] [place] [facility] [address] [facility] [address] Performing Lab: [facility] [place] [facility] [address] [facility] [address] [facility] LIPID PANEL, NON FASTING CHOLESTEROL [MASS/VOLUM E] IN SERUM OR PLASMA 183 mg/dL 09/08 Specimen Type: SERUM No comment entered. Ordering Provider: LAMONTE STINSON Report Released Date/Time: Sep 01, 2023 03:23 PM Reporting Lab: [facility] [place] [facility] [address] [facility] [address] Performing Lab: [facility] [place] [facility] [address] [facility] [address] [facility] LIPID PANEL, NON FASTING TRIGLYCERID E [MASS/VOLUM E] IN SERUM OR PLASMA 76 mg/dL 0 - 150 09/08 Specimen Type: SERUM No comment entered. Ordering Provider: LAMONTE STINSON Report Released Date/Time: Sep 01, 2023 03:23 PM Reporting Lab: [facility] [place] [facility] [address] [facility] [address] Performing Lab: [facility] [place] [facility] [address] [facility] [address] [facility] LIPID PANEL, NON FASTING CHOLESTEROL IN LDL [MASS/VOLUM E] IN SERUM OR PLASMA BY CALCULATION 107 mg/dL 0 - 129 09/08 Specimen Type: SERUM No comment entered. Ordering Provider: LAMONTE STINSON Report Released Date/Time: Sep 01, 2023 03:23 PM Reporting Lab: [facility] [place] [facility] [address] [facility] [address] Performing Lab: [facility] [place] [facility] [address] [facility] [address] [facility] LIPID PANEL, NON FASTING CHOLESTEROL .TOTAL/CHOL ESTEROL IN HDL [MASS RATIO] IN SERUM OR PLASMA 3.0 09/08 Specimen Type: SERUM No comment entered. Ordering Provider: LAMONTE STINSON Report Released Date/Time: Sep 01, 2023 03:23 PM Reporting Lab: [facility] [place] [facility] [address] [facility] [address] Performing Lab: [facility] [place] [facility] [address] [facility] [address] [facility] LIPID PANEL, NON FASTING CHOLESTEROL IN HDL [MASS/VOLUM E] IN SERUM OR PLASMA 61 mg/dL 40 - 60 09/08 H Specimen Type: SERUM No comment entered. Ordering Provider: LAMONTE STINSON Report Released Date/Time: Sep 01, 2023 03:23 PM Reporting Lab: [facility] [place] [facility] [address] [facility] [address] Performing Lab: [facility] [place] [facility] [address] [facility] [address] [facility] LIVER FUNCTION PROTEIN [MASS/VOLUM E] IN SERUM OR PLASMA 7.3 g/dL 6.0 - 8.3 09/08 Specimen Type: SERUM No comment entered. Ordering Provider: LAMONTE STINSON Report Released Date/Time: Sep 01, 2023 03:23 PM Reporting Lab: [facility] [place] [facility] [address] [facility] [address] Performing Lab: [facility] [place] [facility] [address] [facility] [address] [facility] LIVER FUNCTION ALBUMIN [MASS/VOLUM E] IN SERUM OR PLASMA 4.1 g/dL 3.5 - 5.0 09/08 Specimen Type: SERUM No comment entered. Ordering Provider: LAMONTE STINSON Report Released Date/Time: Sep 01, 2023 03:23 PM Reporting Lab: [facility] [place] [facility] [address] [facility] [address] Performing Lab: [facility] [place] [facility] [address] [facility] [address] [facility] LIVER FUNCTION ALKALINE PHOSPHATASE [ENZYMATIC ACTIVITY/VO LUME] IN SERUM OR PLASMA 94 U/L 40 - 150 09/08 Specimen Type: SERUM No comment entered. Ordering Provider: LAMONTE STINSON Report Released Date/Time: Sep 01, 2023 03:23 PM Reporting Lab: [facility] [place] [facility] [address] [facility] [address] Performing Lab: [facility] [place] [facility] [address] [facility] [address] [facility] LIVER FUNCTION ASPARTATE AMINOTRANSF ERASE [ENZYMATIC ACTIVITY/VO LUME] IN SERUM OR PLASMA 22 U/L 5 - 34 09/08 Specimen Type: SERUM No comment entered. Ordering Provider: LAMONTE STINSON Report Released Date/Time: Sep 01, 2023 03:23 PM Reporting Lab: [facility] [place] [address] [address] Performing Lab: [facility] [place] [address] [address] [facility] LIVER FUNCTION ALANINE AMINOTRANSF ERASE [ENZYMATIC ACTIVITY/VO LUME] IN SERUM OR PLASMA 22 U/L 09/08 Specimen Type: SERUM No comment entered. Ordering Provider: LAMONTE STINSON Report Released Date/Time: Sep 01, 2023 03:23 PM Reporting Lab: [facility] [place] [address] [address] Performing Lab: [facility] [place] [address] [address] [facility] LIVER FUNCTION BILIRUBIN.T OTAL [MASS/VOLUM E] IN SERUM OR PLASMA 1.1 mg/dL 0.2 - 1.2 09/08 Specimen Type: SERUM No comment entered. Ordering Provider: LAMONTE STINSON Report Released Date/Time: Sep 01, 2023 03:23 PM Reporting Lab: [facility] [place] [address] [address] Performing Lab: [facility] [place] [address] [address] [facility] PT & INR (PROTIME) INR IN PLATELET POOR PLASMA BY COAGULATION ASSAY 1.3 09/08 Specimen Type: PLASMA No comment entered. Ordering Provider: LAMONTE STINSON Report Released Date/Time: Sep 01, 2023 03:23 PM Reporting Lab: [facility] [place] [address] [address] Performing Lab: [facility] [place] [facility] [address] [facility] [address] [facility] PT & INR (PROTIME) PROTHROMBIN TIME (PT) 14.3 s 10.0 - 13.1 09/08 H Specimen Type: PLASMA No comment entered. Ordering Provider: LAMONTE STINSON Report Released Date/Time: Sep 01, 2023 03:23 PM Reporting Lab: [facility] [place] [address] [address] Performing Lab: [facility] [place] [address] [address] [facility] CREATININ E (eGFR 2020) CREATININE [MASS/VOLUM E] IN SERUM OR PLASMA 1.38 mg/dL 0.50 - 1.40 04/28 Specimen Type: SERUM No comment entered. Ordering Provider: ELVIA SHAH Report Released Date/Time: Apr 13, 2023 04:12 PM Reporting Lab: [facility] [place] [address] [address] Performing Lab: [facility] [place] [address] [address] [facility] CREATININ E (eGFR 2020) GLOMERULAR FILTRATION RATE/1.73 SQ M.PREDICTED [VOLUME RATE/AREA] IN SERUM, PLASMA OR BLOOD BY CREATININE- BASED FORMULA (CKD-EPI 2020) 52 mL/min 60 04/28 L Specimen Type: SERUM No comment entered. Ordering Provider: ELVIA SHAH Report Released Date/Time: Apr 13, 2023 04:12 PM Reporting Lab: [facility] [place] [facility] [address] [facility] [address] Performing Lab: [facility] [place] [facility] [address] [facility] [address] [facility] [facility] CBC LEUKOCYTES [#/VOLUME] IN BLOOD BY AUTOMATED COUNT 5.78 10*3/u L 4.50 - 11.00 04/28 Specimen Type: BLOOD No comment entered. Ordering Provider: ELVIA SHAH Report Released Date/Time: Apr 13, 2023 04:12 PM Reporting Lab: [facility] [place] [facility] [address] [facility] [address] Performing Lab: [facility] [place] [address] [address] [facility] CBC ERYTHROCYTE S [#/VOLUME] IN BLOOD BY AUTOMATED COUNT 5.08 10*6/u L 4.23 - 5.66 04/28 Specimen Type: BLOOD No comment entered. Ordering Provider: ELVIA SHAH Report Released Date/Time: Apr 13, 2023 04:12 PM Reporting Lab: [facility] [place] [address] [address] Performing Lab: [facility] [place] [address] [address] [facility] CBC HEMOGLOBIN [MASS/VOLUM E] IN BLOOD 16.3 g/dL 12.8 - 17 04/28 Specimen Type: BLOOD No comment entered. Ordering Provider: ELVIA SHAH Report Released Date/Time: Apr 13, 2023 04:12 PM Reporting Lab: [facility] [place] [facility] [address] [facility] [address] Performing Lab: [facility] [place] [address] [address] [facility] CBC HEMATOCRIT [VOLUME FRACTION] OF BLOOD BY AUTOMATED COUNT 48.8 39.2 - 50.4 04/28 Specimen Type: BLOOD No comment entered. Ordering Provider: ELVIA SHAH Report Released Date/Time: Apr 13, 2023 04:12 PM Reporting Lab: [facility] [address] [facility] [address] Performing Lab: [facility] [address] [facility] [address] [facility] CBC MCV [ENTITIC VOLUME] BY AUTOMATED COUNT 96.1 fL 82 - 99 04/28 Specimen Type: BLOOD No comment entered. Ordering Provider: ELVIA SHAH Report Released Date/Time: Apr 13, 2023 04:12 PM Reporting Lab: [facility] [place] [address] [address] Performing Lab: [facility] [place] [address] [address] [facility] CBC MCHC [MASS/VOLUM E] BY AUTOMATED COUNT 33.4 g/dL 30.8 - 35.1 04/28 Specimen Type: BLOOD No comment entered. Ordering Provider: ELVIA SHAH Report Released Date/Time: Apr 13, 2023 04:12 PM Reporting Lab: [facility] [place] [address] [address] Performing Lab: [facility] [address] [address] [facility] CBC PLATELETS [#/VOLUME] IN BLOOD BY AUTOMATED COUNT 168 10*3/u L 140 - 360 04/28 Specimen Type: BLOOD No comment entered. Ordering Provider: ELVIA SHAH Report Released Date/Time: Apr 13, 2023 04:12 PM Reporting Lab: [facility] [place] [address] [address] Performing Lab: [facility] [place] [address] [address] [facility] CBC ERYTHROCYTE DISTRIBUTIO N WIDTH [RATIO] BY AUTOMATED COUNT 13.2 12.0 - 16.0 04/28 Specimen Type: BLOOD No comment entered. Ordering Provider: ELVIA SHAH Report Released Date/Time: Apr 13, 2023 04:12 PM Reporting Lab: [facility] [place] [facility] [address] [address] Performing Lab: [facility] [place] [facility] [address] [address] [facility] CBC MCH [ENTITIC MASS] BY AUTOMATED COUNT 32.1 pg 26.2 - 32.6 04/28 Specimen Type: BLOOD No comment entered. Ordering Provider: ELVIA SHAH Report Released Date/Time: Apr 13, 2023 04:12 PM Reporting Lab: [facility] [place] [facility] [address] [address] Performing Lab: [facility] [place] [address] [address] [facility] THYROID T4 FREE(FT4) THYROXINE (T4) FREE [MASS/VOLUM E] IN SERUM OR PLASMA 1.31 ng/dL 0.6 - 1.6 09/10 Specimen Type: SERUM Comment: Specimen Icteric Ordering Provider: LAMONTE STINSON Report Released Date/Time: Sep 04, 2022 11:19 AM Reporting Lab: [facility] [place] [facility] [address] [address] Performing Lab: [facility] [place] [facility] [address] [facility] [address] [facility] [place] [facility] BASIC METABOLIC PANEL (fasting) UREA NITROGEN [MASS/VOLUM E] IN SERUM OR PLASMA 20 mg/dL 7 - 25 09/10 Specimen Type: SERUM No comment entered. Ordering Provider: LAMONTE STINSON Report Released Date/Time: Sep 04, 2022 11:19 AM Reporting Lab: [facility] [place] [address] [address] Performing Lab: [facility] [place] [address] [address] [facility] BASIC METABOLIC PANEL (fasting) GLUCOSE [MASS/VOLUM E] IN SERUM OR PLASMA 104 mg/dL 65 - 100 09/10 H Specimen Type: SERUM No comment entered. Ordering Provider: LAMONTE STINSON Report Released Date/Time: Sep 04, 2022 11:19 AM Reporting Lab: [facility] [address] Performing Lab: [facility] [address] [facility] BASIC METABOLIC PANEL (fasting) SODIUM [MOLES/VOLU ME] IN SERUM OR PLASMA 139 mmol/L 135 - 145 09/10 Specimen Type: SERUM No comment entered. Ordering Provider: LAMONTE STINSON Report Released Date/Time: Sep 04, 2022 11:19 AM Reporting Lab: [facility] [address] Performing Lab: [facility] [address] [facility] BASIC METABOLIC PANEL (fasting) POTASSIUM [MOLES/VOLU ME] IN SERUM OR PLASMA 4.0 mmol/L 3.5 - 5.0 09/10 Specimen Type: SERUM No comment entered. Ordering Provider: LAMONTE STINSON Report Released Date/Time: Sep 04, 2022 11:19 AM Reporting Lab: [facility] [place] [address] [address] Performing Lab: [facility] [address] [facility] BASIC METABOLIC PANEL (fasting) CHLORIDE [MOLES/VOLU ME] IN SERUM OR PLASMA 104 mmol/L 100 - 110 09/10 Specimen Type: SERUM No comment entered. Ordering Provider: LAMONTE STINSON Report Released Date/Time: Sep 04, 2022 11:19 AM Reporting Lab: [facility] [address] [address] Performing Lab: [facility] [address] [facility] [address] [facility] BASIC METABOLIC PANEL (fasting) CARBON DIOXIDE, TOTAL [MOLES/VOLU ME] IN SERUM OR PLASMA 24 meq/L 20 - 30 09/10 Specimen Type: SERUM No comment entered. Ordering Provider: LAMONTE STINSON Report Released Date/Time: Sep 04, 2022 11:19 AM Reporting Lab: [facility] [address] [facility] [address] Performing Lab: [facility] [address] [facility] [address] [facility] BASIC METABOLIC PANEL (fasting) CREATININE [MASS/VOLUM E] IN SERUM OR PLASMA 1.41 mg/dL 0.50 - 1.40 09/10 H Specimen Type: SERUM No comment entered. Ordering Provider: LAMONTE STINSON Report Released Date/Time: Sep 04, 2022 11:19 AM Reporting Lab: [facility] [address] [facility] [address] Performing Lab: [facility] [address] [facility] BASIC METABOLIC PANEL (fasting) GLOMERULAR FILTRATION RATE/1.73 SQ M.PREDICTED [VOLUME RATE/AREA] IN SERUM, PLASMA OR BLOOD BY CREATININE- BASED FORMULA (CKD-EPI) 51 mL/min 09/10 L Specimen Type: SERUM No comment entered. Ordering Provider: LAMONTE STINSON Report Released Date/Time: Sep 04, 2022 11:19 AM Reporting Lab: [facility] [address] Performing Lab: [facility] [address] [facility] CBC LEUKOCYTES [#/VOLUME] IN BLOOD BY AUTOMATED COUNT 5.77 10*3/u L 4.50 - 11.00 09/10 Specimen Type: BLOOD No comment entered. Ordering Provider: LAMONTE STINSON Report Released Date/Time: Sep 04, 2022 11:19 AM Reporting Lab: [facility] [place] [facility] [address] [facility] [address] Performing Lab: [facility] [place] [facility] [address] [facility] [address] [facility] [place] [facility] CBC ERYTHROCYTE S [#/VOLUME] IN BLOOD BY AUTOMATED COUNT 5.35 10*6/u L 4.23 - 5.66 09/10 Specimen Type: BLOOD No comment entered. Ordering Provider: LAMONTE STINSON Report Released Date/Time: Sep 04, 2022 11:19 AM Reporting Lab: [facility] [place] [facility] [address] [facility] [address] Performing Lab: [facility] [place] [facility] [address] [facility] [address] [facility] [place] [facility] CBC HEMOGLOBIN [MASS/VOLUM E] IN BLOOD 17.2 g/dL 12.8 - 17 09/10 H Specimen Type: BLOOD No comment entered. Ordering Provider: LAMONTE STINSON Report Released Date/Time: Sep 04, 2022 11:19 AM Reporting Lab: [facility] [place] [facility] [address] [facility] [address] Performing Lab: [facility] [place] [facility] [address] [facility] [address] [facility] [place] [facility] CBC HEMATOCRIT [VOLUME FRACTION] OF BLOOD BY AUTOMATED COUNT 51.4 39.2 - 50.4 09/10 H Specimen Type: BLOOD No comment entered. Ordering Provider: LAMONTE STINSON Report Released Date/Time: Sep 04, 2022 11:19 AM Reporting Lab: [facility] [place] [facility] [address] [facility] [address] Performing Lab: [facility] [place] [facility] [address] [facility] [address] [facility] [place] [facility] CBC MCV [ENTITIC VOLUME] BY AUTOMATED COUNT 96.1 fL 82 - 99 09/10 Specimen Type: BLOOD No comment entered. Ordering Provider: LAMONTE STINSON Report Released Date/Time: Sep 04, 2022 11:19 AM Reporting Lab: [facility] [place] [facility] [address] [facility] [address] Performing Lab: [facility] [place] [facility] [address] [facility] [address] [facility] [place] [facility] CBC MCHC [MASS/VOLUM E] BY AUTOMATED COUNT 33.5 g/dL 30.8 - 35.1 09/10 Specimen Type: BLOOD No comment entered. Ordering Provider: LAMONTE STINSON Report Released Date/Time: Sep 04, 2022 11:19 AM Reporting Lab: [facility] [place] [address] [address] Performing Lab: [facility] [place] [facility] [address] [facility] [address] [facility] [place] [facility] CBC PLATELETS [#/VOLUME] IN BLOOD BY AUTOMATED COUNT 151 10*3/u L 140 - 360 09/10 Specimen Type: BLOOD No comment entered. Ordering Provider: LAMONTE STINSON Report Released Date/Time: Sep 04, 2022 11:19 AM Reporting Lab: [facility] [place] [address] [address] Performing Lab: [facility] [place] [facility] [address] [facility] [address] [facility] [place] [facility] CBC ERYTHROCYTE DISTRIBUTIO N WIDTH [RATIO] BY AUTOMATED COUNT 13.9 12.0 - 16.0 09/10 Specimen Type: BLOOD No comment entered. Ordering Provider: LAMONTE STINSON Report Released Date/Time: Sep 04, 2022 11:19 AM Reporting Lab: [facility] [place] [facility] [address] [facility] [address] Performing Lab: [facility] [place] [facility] [address] [facility] [address] [facility] [place] CBC MCH [ENTITIC MASS] BY AUTOMATED COUNT 32.1 pg 26.2 - 32.6 09/10 Specimen Type: BLOOD No comment entered. Ordering Provider: LAMONTE STINSON Report Released Date/Time: Sep 04, 2022 11:19 AM Reporting Lab: [facility] [place] [facility] [address] [facility] [address] Performing Lab: [facility] [place] [facility] [address] [facility] [address] [facility] [place] [facility] Vital Signs Combined list of inpatient and [...] ADM Date DC Date Status Disposition Source [facility] [place] [facility] QNHP OL DIG ASSMT&MGMT 5-10 [id number] Diagnos is: ICD-10- CM Z51.81 Encount er for therape utic drug level monitor richard SHAHRIC REGI [place] 04/13 [facility] [place] [facility] [place] [facility] Outpatient Encounter [id number] MORGANERICA ISROSE MARIE Ann 06/24 [facility] [place] [facility] [place] [facility] Outpatient Encounter [id number] 07/01 [facility] [place] [facility] (631GE) QNHP OL DIG ASSMT&MGMT 5-10 [id number] Diagnos is: ICD-10- CM Z79.01 residential (curren t) use of anticoa gulants SHERMAN NAVARRO 09/09 [facility] (6[facility] [place] [facility] Outpatient Encounter [id number] 09/09 [facility] [place] [facility] [place] [facility] OFFICE O/P EST LOW 20 MIN [id number] Diagnos is: ICD-10- CM N40.1 Benign prostat ic hyperpl sarwat with lower urinary tract symp Loida STINSON 09/16 [facility] [place] [facility] Outpatient Encounter [id number] 06/14 [facility] [place] [facility] Outpatient Encounter [id number] 08/15 [facility] [place] [facility] Social History Combined list of available smoking, tobacco, and other social history from Department of Defense and Veterans Affairs facilities. Social History Type Response Date Comment Sourc e Tobacco smoking status NHIS VA-TOBACCO FOR[facility] History of tobacco use PA-TOBACCO QUIT 15 YRS OR MORE 09/17/2023 [facility] [place] [place] [facility] History of tobacco use VA-TOBACCO FORMER USER 09/16/2022 [facility] [place] [place] [facility] History of tobacco use PA-TOBACCO QUIT 15 YRS OR MORE 09/12/2021 [facility] [facility] History of tobacco use PA-TOBACCO FORMER USER 01/17/2020 [facility] [facility] History of tobacco use PA-TOBACCO QUIT 15 YRS OR MORE 08/03/2018 [facility] [facility] History of tobacco use QUIT TOBACCO USE > 7 YEARS AGO 10/22/2017 [facility] [facility] History of tobacco use LIFETIME NON-TOBACCO USER [facility] Plan of Care List of future care activities from Department of Veterans Affairs facilities. Additional future care activities may be listed in the Assessment and Plan section. Date/Time Care Activity Care Activity Detail Facili ty 09/15/2024 AMBULATORY - MEDICINE [facility]ULAT[facility] [facility]
== END 2024-08-15 15:14 | disposition home or self-care (01) ==
LOC: HO.HCS 14:31
PROVIDERS: PCP Internal Medicine; Visit Provider Internal Medicine Cardiovascular Disease
DX: I50.30 Unspecified diastolic (congestive) heart failure (principal); I48.20 Chronic atrial fibrillation, unspecified
CPT/HCPCS: 93010; 99214; G2211

== ENCOUNTER → 2024-08-15 14:30 | Outpatient (BNVA) | payer MEDICARE, SELFPAY | PROVIDERS: PCP Internal Medicine; Visit Provider Internal Medicine Cardiovascular Disease | DX: I50.30 Unspecified diastolic (congestive) heart failure (principal); I48.20 Chronic atrial fibrillation, unspecified | CPT/HCPCS: 93005; 99212 ==

== ENCOUNTER 2024-12-06 19:49 | Emergency (ER) | payer OTHER, SELFPAY ==
--- OUTSIDE RECORDS SUMMARY | 2024-02-01 05:15 | XMS_ITS ---
Author Organization Maykel Levin MD Address [address] [place] [phone] Care Team Providers Care Fixed Wing Pilot Name Role Phone Maykel Levin Primary Care Provider Results Component Value Reference Range Notes Complete Blood Count Auto Di ff Reviewed date:02/02/2024 12:17:54 PM Interpretation: Performing Lab:[facility], [address] [place] [phone] Notes/Report: White Blood Count 5.2 4.8-10.8 X10*3/uL [...] NRBC Abs Auto 0.000 0.0-0.012 X10*3/uL Comprehensive [place]. Panel Fa st Reviewed date:02/03/2024 12:34:47 PM Interpretation: Performing Lab:[facility], [address] [place] [phone] Notes/Report: Sodium 139 135-145 mmol/L Potassium 4.3 3.3-5.1 mmol/L Chloride 105 96-108 mmol/L Carbon Dioxide 25 22-29 mmol/L Anion Gap 13 12-20 Blood Urea Nitrogen 14 9-16 mg/dL Creatinine 1.18 0.5-1.4 mg/dL Estimated Glomerular Filt Rate 60 NOTE: For -[place] individuals, multiply the result by 1.210. Chronic [...] Panel Reviewed date:02/03/2024 12:34:56 PM Interpretation: Performing Lab:[address] [phone] Notes/Report: Triglycerides 77 <150 mg/dL Desirable Triglyceride: [...] (Free>4and<10) Reviewed date:02/02/2024 12:29:44 PM Interpretation: Performing Lab:[address] [phone] Notes/Report: PSA,Total (Free>4and<10) 3.22 0.00-4.00 ng/mL A [...] t Reviewed date:02/02/2024 12:15:10 PM Interpretation: Performing Lab:[facility], [address] [place] [phone] Notes/Report: [id number] Urine, Clean Catch Color Urine Yellow Appearance Urine Clear PH 6.0 5.0-9.0 Glucose Urine UA >=1000 Negative mg/dL Urine Blood Negative Negative Specific [place] - Urine 1.015 1.005-1.025 Urine Protein Negative [...] Location Date Provider Diagnosis Maykel Levin MD [address] [place] [address] [place] [phone] 02/01/2024 Maykel Levin Blood tests for routine [...] Details Provider Name:Maykel stewart, 02/05/2025 07:15:00 AM, [address] [place] [address], [address], [place], [place], [phone], Provider Name:Maykel stewart, 02/12/2025 09:30:00 AM, [address] [place] [address], Suite [facility], [place], [place], [phone], Progress Notes * Madan OLIVEIRA JDOB :1945 (79 yo M)Acc No.[id number]:02/01/2024 Progress Note Patient: Madan CLAIRE Provider: Marilee Levin MD :1945 A ge:79 Y S ex:Male Date:02/01/2024 Address:[address] [place], [place] [phone] Subjective: * Chief Complaints: * 1 . [...] - 02/02/2024 08:45 AM) L AB: Comprehensive [place]. Panel Fast (Collection Date & Time - [...] - 02/02/2024 08:45 AM) L AB: Comprehensive [place]. Panel Fast (Collection Date & Time - [...] - 02/02/2024 08:45 AM) L AB: Comprehensive [place]. Panel Fast (Collection Date & Time - [...] - 02/02/2024 08:45 AM) L AB: Comprehensive [place]. Panel Fast (Collection Date & Time - [...] - 02/02/2024 08:45 AM) L AB: Comprehensive [place]. Panel Fast (Collection Date & Time - [...] Pending * Provider: Marilee Levin MD Date: 1 04/02/2023 Generated for Wilmer salazar/Tequila/Griselda on: 0 12/06/2024 09:36 PM EDT
--- OUTSIDE RECORDS SUMMARY | 2024-02-08 05:30 | XMS_ITS ---
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 Name Role Phone Maykel Levin Primary Care Provider [phone] Allergies No Known Allergies REASON FOR VISIT [...] Location Date Provider Diagnosis Maykel Levin MD [address] [place] [address] [address] [place], [place] [phone] 02/08/2024 Maykel Levin Essential hypertensi on I10 [...] Provider Name:Maykel stewart, 02/05/2025 07:15:00 AM, [address] [facility], [address], [place], [place], [phone], Provider Name:Maykel Jason ier, 02/12/2025 09:30:00 AM, [address] [facility], [address], [place], [place], [phone], Progress Notes * Madan OLIVEIRADOB :1945 (79 yo M)Acc No.[id number]:02/08/2024 Progress Notes Patient: Madan Butler Provider: Marilee Levin MD :1945 A ge:79 Y S ex:Male Date:02/08/2024 Address:[address] [place], [place] [phone] Subjective: * Chief Complaints: * A NNUAL [...] of the [place]: yes, [place]. Patient states smokes an occasional cigar. * [...] Auto 0.000 0.0-0.012 - X10*3/uL L ab:Comprehensive [place]. Panel Fast (Order Date - 02/01/2024) (Collection [...] mg/dL Urine Blood Negative Negative - Specific [place] - Urine 1.015 1.005-1.025 - Urine Protein [...] Date: 04/09/2023 Generated for Wilmer salazar/Tequila/Griselda on: 0 12/06/2024 09:35 PM EDT History and Physical Notes * HPI (History [...]
--- OUTSIDE RECORDS SUMMARY | 2024-06-12 05:23 | XMS_ITS ---
Author Organization Maykel Levin MD Address [address] [facility] [address] [place] [phone] Care Team Providers Care Director Credit Risk Name Role Phone Maykel Levin Primary Care Provider REASON FOR VISIT HCC Risk Codes 08/07 Encounters Encounter Location Date Provider Diagnosis Maykel Levin MD [address] [facility] [address] [place] [phone] 06/12/2024 Maykel Levin Plan Of Treatment Next Appt Details Provider Name:Maykel stewart, 02/05/2025 07:15:00 AM, [address] [place] [address], [address], [phone], Provider Name:Maykel stewart, 02/12/2025 09:30:00 AM, [address] [place] [address], [address], [phone], Progress Notes * Madan OLIVEIRA JDOB :1945 (79 yo M)Acc No.[id number]:06/12/2024 Patient: Lucy Madan DELCID Little :1945 A ge:79 Y S ex:Male Address:[address] [place] [id number] * true * Date: Generated for Wilmer salazar/Tequila/eTransmitting on: 0 12/06/2024 09:36 PM EDT
--- OUTSIDE RECORDS SUMMARY | 2024-07-31 03:45 | XMS_ITS ---
Author Organization Maykel Levin MD Address [address] [place] [phone] Care Team Providers Care Transportation Equipment Painter Name Role Phone Maykel Levin Primary Care Provider [phone] Results Component Value Reference Range Notes Liver Panel Reviewed date:08/02/2024 05:36:26 PM Interpretation: Performing Lab:[facility], [address] [place] [phone] Notes/Report: Bilirubin Total 1.7 0.0-1.0 mg/dL Slight Icte morena. Bilirubin Direct 0.5 0.0-0.5 mg/dL Slight Ict erus. Aspartate Amino Transferase 26 5-37 U/L Alanine Aminotransferase 20 0-40 U/L Total Protein 7.0 6.5-8.0 g/dL Albumin Level 4.3 3.5-5.0 g/dL Alkaline Phosphatase 71 39-117 U/L REASON FOR VISIT fasting lipids Encounters Encounter Location Date Provider Diagnosis Maykel Levin MD [address] [place] [address] [address] [place], [place] [phone] 07/31/2024 Maykel Levin Pure hypercholestero lemia E78.00 Assessments Encounter Date Diagnosis (ICD Code) Assessment Notes Treatment Notes Treatment Clinical Notes Section Notes 07/31/2024 Pure hypercholesterolemia (ICD-10 - E78.00) Plan Of Treatment Pending Test Test Name Order Date Lipid Panel with Reflex 07/31/2024 Next Appt Details Provider Name:Maykel Jason ier, 02/05/2025 07:15:00 AM, [address] [place] [address], [address], [place], [place], [phone], Provider Name:Maykel Jason ierussell, 02/12/2025 09:30:00 AM, [address] [place] [address], [address], [place], [place], [phone], Progress Notes * Madan OLIVEIRADOB :1945 (79 yo M)Acc No.[id number]:07/31/2024 Progress Note Patient: Lucy BEEBEMadan HALL Little Provider: Marilee Levin MD :1945 A ge:79 Y S ex:Male Date:07/31/2024 Address:[address] [place], [place] [phone] Subjective: * Chief Complaints: * 1 . [...] MD Date: 0 07/31/2024 Generated for Wilmer salazar/Tequila/Brandyitting on: 0 12/06/2024 09:35 PM EDT
--- OUTSIDE RECORDS SUMMARY | 2024-08-07 05:00 | XMS_ITS ---
Author Organization Maykel Levin MD Address [address] [place] [phone] Care Team Providers Care Equipment Maintenance Engineer Name Role Phone Maykel Levin Primary [...] Problem Acute on chronic diastolic heart failure (886914410) Acute on chronic diastolic (congestive) heart failure (I50.33) Active confirmed Vital Signs Blood pressure systolic 120 mm Hg 08/08/19 25 Blood pressure diastolic 70 mm Hg 025 Height 66 in 08/07/2024 Weight 184 lbs 08/07/2024 BMI 29.7 kg/m2 08/07/2024 weight is up 2 pounds since 02-08-24 Encounters Encounter Location Date Provider Diagnosis Maykel Levin MD [address] [place] [address] Drive [address] [place] [phone] 08/07/2024 Maykel Levin Pure hypercholestero lemia E78.00 [...] Onychomycosis (ICD-1 0 - B35.1) to see airway traffic controller 08/07/2024 Acute on chronic diastolic (congestive) heart [...] will continue to monitor Onychomycosis to see airway traffic controller Acute on chronic diastolic ( congestive) heart failure stable, will cntnue current regiment Other stable, will continu e current regiment Next Appt Details Provider Name:Maykel stewart, 02/05/2025 07:15:00 AM, [address] [place] [address], [address], [phone], Provider Name:Maykel stewart, 02/12/2025 09:30:00 AM, [address] [place] [address], [place] [address], [place], [place], [phone], Progress Notes * Madan OLIVEIRADOB :1945 (79 yo M)Acc No.[id number]:08/07/2024 Progress Notes Patient: Madan CLAIRE Provider: Marilee Levin MD :1945 A ge:79 Y S ex:Male Date:08/07/2024 Address:[address] [place], [place] [phone] Subjective: * Chief Complaints: * 6 monthCheck [...] Treatment: 2. O nychomycosis Notes: to see airway traffic controller 3. A cute on chronic diastolic (congestive) [...] 0 08/07/2024 Generated for Wilmer salazar/Tequila/Griselda on: 0 12/06/2024 09:36 PM EDT History and Physical Notes * [...]
--- NOTE | ~2024-12-06 | XR_ITS ---
CLINICAL HISTORY: SOB 2 view chest x-ray Comparison: CR/SR - XR CHEST 2 VIEWS - 11/11/23 11:37 EDT Findings: Minimal atelectasis at the lung bases. No consolidation or effusion. Normal size heart. No acute fracture. IMPRESSION: Minimal bibasilar atelectasis. This document has been electronically signed by: Hannah Mazariegos MD on 12/06/2024 21:06:07
[2024-12-06 20:05] VITALS: BP 112/76; PULSE 86; RESP 18; TEMP 37.2; O2SAT 95; BMI 27.4
--- NOTE | 2024-12-06 20:07 | ED.GENADULT ---
HPI - General Adult General Chief complaint: General Medical Stated complaint: congested heart failure, wheezing + ? uti Time Seen by Provider: 12/06/24 21:49 Source: patient and family Mode of arrival: ambulatory History of Present Illness ED Provider: Evelyn HPI narrative: 79-year-old male who presents with headache, body aches, some congestion and cough, did have a social event on Wednesday but his symptoms have been like this since Wednesday and he states he has just been feeling fatigued and weak and was concerned that he may have congestive heart failure and was also concerned because last year he was sick with sepsis. Related Data Home Medications ?Medication ?Instructions ?Recorded ?Confirmed atorvastatin 10 mg tablet 10 mg PO DAILY 04/05/20 08/15/24 latanoprost 0.005 % eye drops 1 drp ophthalmic (eye) BEDTIME 04/05/20 08/15/24 levothyroxine 100 mcg tablet 100 mcg PO DAILY 04/05/20 08/15/24 omeprazole 20 mg capsule,delayed 20 mg PO DAILY 04/05/20 08/15/24 release dabigatran etexilate 150 mg 150 mg PO BID 10/07/20 08/15/24 capsule (Pradaxa) empagliflozin 10 mg tablet 10 mg PO DAILY@1200 08/05/23 08/15/24 (Jardiance) finasteride 5 mg tablet 5 mg PO DAILY 02/08/24 08/15/24 Previous Rx's ?Medication ?Instructions ?Recorded tamsulosin 0.4 mg capsule 0.4 mg PO BEDTIME #30 caps 08/09/21 diltiazem HCl 120 mg 120 mg PO DAILY #90 caps 06/05/24 capsule,extended release 24 hr furosemide 40 mg tablet 40 mg PO DAILY #90 tabs 07/06/24 metoprolol succinate 100 mg 100 mg PO BID #180 tabs 07/10/24 tablet,extended release 24 hr Allergies Allergy/AdvReac Type Severity Reaction Status Date / Time No Known Allergies Allergy Verified 12/06/24 20:07 Review of Systems Review of Systems: Pertinent positives and negatives as stated in [facility] Past Medical History Attestation statement: The following information was validated with the patient. Source: nursing notes reviewed Medical History Generalized anxiety disorder Hypothyroidism BPH (benign prostatic hyperplasia) Elevated troponin Chronic kidney disease (HFpEF) heart failure with preserved ejection fraction Chronic atrial fibrillation HTN (hypertension) Tricuspid regurgitation Biatrial enlargement Surgical History Hx of cataract surgery History of esophageal dilatation Hx of inguinal hernia repair History of appendectomy Family History Family History Father No problems noted. Mother HTN (hypertension) Social History Social History Household Members: Spouse Housing: House Do you presently have visiting nurse or other home services: No Alcohol intake: current Alcohol intake frequency: 0-2 drinks per day Alcohol type: wine Patient Tobacco Use Status: Former Tobacco user Years Smoked: 10 +/- Smoked in Last 30 Days: No Use of substances other than those prescribed or required for medical reasons: No Advance Directives: Yes Advance Directives on File: Yes Advance Directives Date on File: 08/05/23 Do you have a plan to hurt others: No Plan service: No Current occupational status: retired Physical Exam ED Exam Exam: VITAL SIGNS: Reviewed. GENERAL: Well developed, well nourished, in no acute distress. HEAD: Normocephalic/atraumatic EYES: PERRLA, EOMI EARS: Ext canals without abnormality NOSE: Nares patent bilateral OROPHARYNX: no oral lesions noted, posterior pharynx clear NECK: Supple, no adenopathy LUNGS: Normal breath sounds. No adventitious sounds or accessory muscle use. SpO2<95> CARDIOVASCULAR: Regular rate and rhythm without noted murmurs, no JVD or lower extremity edema. ABDOMEN: Soft, non-tender, non-distended with bowel sounds. MUSCULOSKELETAL: No tenderness, deformities, or effusions noted on gross inspection. EXTREMITIES: No cyanosis, clubbing or edema. SKIN: Inspection of the skin reveals no rashes NEUROLOGIC: Alert and oriented x 4. Strength and sensation to light touch were grossly intact x 4. Vital Signs: Vital Signs - 24 hr 12/06/24 20:05 12/06/24 21:12 Temperature 99.0 F 99.9 F Pulse Rate 86 95 Respiratory Rate 18 20 Blood Pressure 112/76 118/70 Pulse Oximetry 95 95 Oxygen Delivery Method Room Air Room Air BMI result Body Mass Index 27.4 Course Course Course Narrative: Rapid medical examination performed in triage by Ashley Pierce PA-C. Patient is a 79 year old assigned male at presenting to the emergency department with a cough. Detailed physical exam and review of systems are deferred to the tele grout sewer line repairer. EKG, labs, imaging, and swabs ordered. Patient placed back in the waiting room pending room availability and results. Medical Decision Making Medical Decision Making [facility] Narrative: 79-year-old male with history and clinical presentation, DD DX: Viral syndrome, lower clinical suspicion for pneumonia or CHF exacerbation. My interpretation of the EKG: AFib without RVR, HR-89, no STEMI, QRS/QTC/QTC is otherwise within normal limits. 2247: I reviewed and interpreted all investigations and there is no leukocytosis, anemia, but a chronic thrombocytopenia. Coagulation studies are flexion of patient's chronic anticoagulation. VBG is not consistent with respiratory acidosis or hypercapnia. There is no demonstrate BONI/electrolyte or new liver enzyme derangements. High sensitivity troponin is chronically detectable on elevated but is not associated with ischemic changes on EKG. Urinalysis is negative for UTI or hematuria. Viral testing is positive for COVID-19 a and negative for flu. My interpretation is in agreement with radiology's impression of the chest x-ray and there is no intrathoracic acute abnormalities. I discussed all findings and results with the patient at bedside, he otherwise appears nontoxic but is obviously experiencing viral symptoms. He was encouraged to go home and rest with plenty of fluids and use Tylenol for any body aches and headaches. Patient does not meet inpatient level of care. Differential Diagnosis Differential Diagnoses: The differential diagnosis associated with the presentation includes See above Admission/Observation Consideration of admission/observation: Escalation of care including admission/observation considered See above Lab Data [facility] Lab Attestation statement: I reviewed the patient's lab results. See above 12/06/24 20:40 12/06/24 20:40 Labs: Lab Results 12/06/24 12/06/24 12/06/24 Range/Units 20:40 20:53 21:17 WBC 6.1 (4.8-10.8) X10*3/uL RBC 4.60 (4.60-5.80) X10*6/uL Hgb 15.2 (14.0-18.0) g/dl Hct 43.0 (42.0-52.0) % MCV 93.5 (80.0-98.0) fL MCH 33.0 (27.0-33.0) pg MCHC 35.3 (31.0-36.0) g/dl RDW 13.8 (11.0-16.0) % Plt Count 113 L (160-400) X10*3/uL MPV 10.4 (9.4-12.4) fL Immature Gran % (Auto) 0.5 H (0.0-0.4) % Neut % (Auto) 80.7 H (45-73) % Lymph % (Auto) 5.4 L (20-40) % Hamlin % (Auto) 12.9 H (2-11) % Eos % (Auto) 0.3 (0-4) % Baso % (Auto) 0.2 (0-2) % Lymph # (Auto) 0.3 L (1.2-4.9) X10*3/uL [place]lin # (Auto) 0.8 (0.1-1.2) X10*3/uL Eos # (Auto) 0.0 (0.0-0.4) X10*3/uL Baso # (Auto) 0.0 (0.0-0.2) X10*3/uL Abs Immat Gran (auto) 0.03 (0.00-0.03) X10*3/uL Absolute Neuts (auto) 4.9 (2.0-8.3) x10*3/uL Absolute Nucleated RBC 0.000 (0.0-0.012) X10*3/uL Nucleated RBC % (auto) 0.0 (0.0-0.2) /100WBC PT 13.8 H (10.9-12.4) SEC INR 1.2 H (0.9-1.1) VBG pH 7.42 (7.32-7.43) VBG pCO2 34 mmHg VBG pO2 49 mmHg VBG HCO3 22 (22-26) mmol/L VBG O2 Saturation 77.0 % VBG Base Excess -0.9 mmol/L Sodium 136 (135-145) mmol/L Potassium 4.0 (3.3-5.1) mmol/L Chloride 105 (96-108) mmol/L Carbon Dioxide 22 (22-29) mmol/L Anion Gap 13 (12-20) BUN 17 H (9-16) mg/dL Creatinine 1.23 (0.5-1.4) mg/dL Estim Creat Clear Calc 48.6 Estimated GFR 57 Random Glucose 114 (60-115) mg/dL Calcium 9.0 D (8.4-10.2) mg/dL Magnesium 1.7 (1.6-2.6) mg/dL Total Bilirubin 1.7 H (0.0-1.0) mg/dL AST 23 (5-37) U/L ALT 21 (0-40) U/L Alkaline Phosphatase 70 (39-117) U/L Troponin I High Sens 63.2 H (<3.5-35.0) ng/L Total Protein 6.4 L (6.5-8.0) g/dL Albumin 4.1 (3.5-5.0) g/dL Urine Color Urine Appearance Urine pH (5.0-9.0) Ur Specific [place] (1.005-1.025) Urine Protein (Neg-Trace) mg/dL Urine Glucose (UA) (Negative) mg/dL Urine Ketones (Negative) mg/dL Urine Blood (Negative) Urine Nitrite (Negative) Ur Leukocyte Esterase (Negative) Urine RBC (0-2) /HPF Urine WBC (0-5) /HPF Ur Squamous Epith Cells (0-2) /HPF Urine Bacteria (None Seen) Hyaline Casts (0-2) /LPF COVID-19 (JORGE) Positive A (Negative) COVID-19 Clin Com See Note Influenza Type A (JOSIE) Negative (Negative) Influenza Type B (JOSIE) Negative (Negative) Influenza A & B Note See Note 12/06/24 Range/Units 21:30 WBC (4.8-10.8) X10*3/uL RBC (4.60-5.80) X10*6/uL Hgb (14.0-18.0) g/dl Hct (42.0-52.0) % MCV (80.0-98.0) fL MCH (27.0-33.0) pg MCHC (31.0-36.0) g/dl RDW (11.0-16.0) % Plt Count (160-400) X10*3/uL MPV (9.4-12.4) fL Immature Gran % (Auto) (0.0-0.4) % Neut % (Auto) (45-73) % Lymph % (Auto) (20-40) % [place]lin % (Auto) (2-11) % Eos % (Auto) (0-4) % Baso % (Auto) (0-2) % Lymph # (Auto) (1.2-4.9) X10*3/uL [place] # (Auto) (0.1-1.2) X10*3/uL Eos # (Auto) (0.0-0.4) X10*3/uL Baso # (Auto) (0.0-0.2) X10*3/uL Abs Immat Gran (auto) (0.00-0.03) X10*3/uL Absolute Neuts (auto) (2.0-8.3) x10*3/uL Absolute Nucleated RBC (0.0-0.012) X10*3/uL Nucleated RBC % (auto) (0.0-0.2) /100WBC PT (10.9-12.4) SEC INR (0.9-1.1) VBG pH (7.32-7.43) VBG pCO2 mmHg VBG pO2 mmHg VBG HCO3 (22-26) mmol/L VBG O2 Saturation % VBG Base Excess mmol/L Sodium (135-145) mmol/L Potassium (3.3-5.1) mmol/L Chloride (96-108) mmol/L Carbon Dioxide (22-29) mmol/L Anion Gap (12-20) BUN (9-16) mg/dL Creatinine (0.5-1.4) mg/dL Estim Creat Clear Calc Estimated GFR Random Glucose (60-115) mg/dL Calcium (8.4-10.2) mg/dL Magnesium (1.6-2.6) mg/dL Total Bilirubin (0.0-1.0) mg/dL AST (5-37) U/L ALT (0-40) U/L Alkaline Phosphatase (39-117) U/L Troponin I High Sens (<3.5-35.0) ng/L Total Protein (6.5-8.0) g/dL Albumin (3.5-5.0) g/dL Urine Color Yellow Urine Appearance Clear Urine pH 6.0 (5.0-9.0) Ur Specific [place] 1.020 (1.005-1.025) Urine Protein Negative (Neg-Trace) mg/dL Urine Glucose (UA) >=1000 H (Negative) mg/dL Urine Ketones Negative (Negative) mg/dL Urine Blood Negative (Negative) Urine Nitrite Negative (Negative) Ur Leukocyte Esterase Negative (Negative) Urine RBC 0-2 (0-2) /HPF Urine WBC 0-5 (0-5) /HPF Ur Squamous Epith Cells 0-2 (0-2) /HPF Urine Bacteria None Seen (None Seen) Hyaline Casts 0-2 (0-2) /LPF COVID-19 (JORGE) (Negative) COVID-19 Clin Com Influenza Type A (JOSIE) (Negative) Influenza Type B (JOSIE) (Negative) Influenza A & B Note Independent Interpretation I performed an independent interpretation of an: EKG and Plain X-Ray Interpretation: See above Radiology Impression Discussion of test interpretation with radiology: I have reviewed the radiologist's reading. Radiologist Impression: See above External Record Review External record reviewed: Prior outpatient labs and Prior outpatient radiology Chronic Conditions Patient?s care impacted by: Diabetes and Hypertension Discharge Plan Discharge Clinical Impression: Acute viral syndrome, Lab test positive for detection of COVID-19 virus Patient Disposition: Home, Self-Care Instructions: COVID-19 (Coronavirus Disease 2019) (ED), Viral Syndrome (ED) Additional Instructions: Resume all home medications as prescribed. Get plenty of rest and drink plenty of water. Tylenol 1000 mg, orally, every 6 hours as needed for body aches/headaches/temperatures greater than 100.4. Follow-up with your primary care doctor and do not hesitate to return to the emergency room for any acute worsening of symptoms. Prescriptions: No Action diltiazem HCl 120 mg capsule,extended release 24hr 120 mg PO DAILY Qty: 90 3RF furosemide 40 mg tablet 40 mg PO DAILY Qty: 90 3RF metoprolol succinate 100 mg tablet extended release 24 hr 100 mg PO BID Qty: 180 3RF tamsulosin 0.4 mg Capsule 0.4 mg PO BEDTIME Qty: 30 0RF Jardiance 10 mg tablet 10 mg PO DAILY@1200 atorvastatin 10 mg tablet 10 mg PO DAILY levothyroxine 100 mcg tablet 100 mcg PO DAILY latanoprost 0.005 % drops 1 drp ophthalmic (eye) BEDTIME omeprazole 20 mg capsule,delayed release(DR/EC) 20 mg PO DAILY Pradaxa 150 mg capsule 150 mg PO BID finasteride 5 mg tablet 5 mg PO DAILY Referrals: Maykel Levin MD [Primary Care Provider, Medical] Print Language: Estonian
--- NOTE | 2024-12-06 20:08 | ECG_ITS ---
Test Reason : CHEST PAIN Blood Pressure : */* mmHG Vent. Rate : 89 BPM Atrial Rate : * BPM P-R Int : * ms QRS Dur : 70 ms QT Int : 344 ms P-R-T Axes : * 22 251 degrees QTcB Int : 418 ms Atrial fibrillation Cannot rule out Anterior infarct (cited on or before 03-Aug-2021) Abnormal ECG When compared with ECG of 10-Aug-2023 02:31, No significant change was found Referred By: Ashley Pierce Electronically Signed By: ANDREY CASTRO MD
[2024-12-06 20:51] LABS: MANUAL DIFF FLAG NO
[2024-12-06 20:56] LABS: VBG HCO3 22 mmol/L (22-26); VBG O2 % Saturation 77.0 %
[2024-12-06 21:01] LABS: Venous Blood Gas Refer to POC result
[2024-12-06 21:02] LABS: IDNOW Serial# 58CA691E
[2024-12-06 21:03] LABS: COVID-19 Test Positive (Negative)
[2024-12-06 21:07] LABS: Alanine Aminotransferase 21 U/L (0-40); Albumin Level 4.1 g/dL (3.5-5.0); Alkaline Phosphatase 70 U/L (39-117); Anion Gap 13 (12-20); Aspartate Amino Transferase 23 U/L (5-37); Blood Urea Nitrogen 17 mg/dL (9-16); Calcium 9.0 mg/dL (8.4-10.2); Carbon Dioxide 22 mmol/L (22-29); Chloride 105 mmol/L (96-108); Creatinine Clr Calc Pharmacy 48.6; Estimated Glomerular Filt Rate 57; Hematocrit 43.0 % (42.0-52.0); Hemoglobin 15.2 g/dl (14.0-18.0); Imm Gran Abs Auto 0.03 X10*3/uL (0.00-0.03); Imm Gran Pct Auto 0.5 % (0.0-0.4); Lymphocytes Absolute Auto 0.3 X10*3/uL (1.2-4.9); Magnesium 1.7 mg/dL (1.6-2.6); Mean Corpuscular HGB Conc 35.3 g/dl (31.0-36.0); Mean Corpuscular Hemoglobin 33.0 pg (27.0-33.0); Mean Corpuscular Volume 93.5 fL (80.0-98.0); NRBC Abs Auto 0.000 X10*3/uL (0.0-0.012); NRBC Pct Auto 0.0 /100WBC (0.0-0.2); Platelet Count 113 X10*3/uL (160-400); Potassium 4.0 mmol/L (3.3-5.1); Red Blood Count 4.60 X10*6/uL (4.60-5.80); Sodium 136 mmol/L (135-145); Total Protein 6.4 g/dL (6.5-8.0); White Blood Count 6.1 X10*3/uL (4.8-10.8)
[2024-12-06 21:11] LABS: IDNOW Serial# 08D9AD1C; Influenza B2 Negative (Negative)
[2024-12-06 21:12] VITALS: BP 118/70; PULSE 95; RESP 20; TEMP 37.7; O2SAT 95
[2024-12-06 21:14] LABS: Troponin-I High Sensitivity 63.2 ng/L (<3.5-35.0)
[2024-12-06 21:28] LABS: INTERNATIONAL NORM RATIO 1.2 (0.9-1.1); Prothrombin Time 13.8 SEC (10.9-12.4)
--- OUTSIDE RECORDS SUMMARY | 2024-12-06 21:35 | XMS_ITS | Patient Health Record ---
Author Organization [facility] Address [address] [place] [address] Care Team Providers Care Catalyst Manufacturing Operator Name Role Phone Maykel Levin MD Primary Care Provider Farhan Garner [phone] Reason For Referral No Information Medications Medication SIG (Take, Route, Frequency, Duration) Notes Start Date End Date Status lasix 40 mg once a day Active Latanoprost 0.005 % 1 drop into affected eye in the evening Ophthalmic Once a day Active Omeprazole 20 MG 1 Orally Once a day for 90 days 02/18/2021 Active Pradaxa 150 MG 1 capsule Orally Twi ce a day Active Atorvastatin Calcium 10 MG 1 tablet Oral ly Once a day Active Atenolol 100 MG 1 tablet Orally twic e a day Active Levoxyl 100mcg 1 tablet on an empty stomach in the morning Orally Once a day Active Omeprazole 20 MG 1 capsule Orally Onc e a day for 90 days 04/24/2016 Active Omeprazole 20 MG 1 capsule Orally Onc e a day for 90 days 04/04/2018 Active Omeprazole 20 MG Orally Once a day Active Omeprazole 20 MG 1 Orally Once a day for 90 days 04/25/2020 Active Problems Problem Type SNOMED Code ICD Code Onset Dates Problem Status W/U Status Risk Notes Problem 363689398 Encounter for screening for malignant neoplasm of colon (Z12.11) Active confirmed Problem 538374615 History of adenomatous polyp of colon (Z86.010) Active confirmed Problem Screening for malignant neoplasm of rectum (859873696) Encounter for screening for malignant neoplasm of rectum (Z12.12) Active confirmed Problem 96261091 Esophageal stric ture (K22.2) Active confirmed Problem 95081719 Pharyngoesophage al dysphagia (R13.14) Active confirmed Problem 572176533 Reflux esophagit is (K21.0) Active confirmed Plan Of Treatment Future Test Test Name Order Date UPPER GI ENDOSCOPY BALLOOON DILATION OF ESOPH 12/04/2015 COLONOSCOPY 12/25/2016 Insurance Providers Payer Name Payer Address Payer Phone Subscriber Number Group Number Insured Name Patient Relationship to Insured Coverage Start Date Coverage End Date [facility] [address] [facility] [place] [phone] [id number] MEG CRAIG Self - patient is the insured Medical (General) History Medical History History ICD Code Tubular adenomas of the colo n--removed in 1999 and December of 2011--a colonoscopy in 2006 revealed only a hyperplastic polyp Denies ID,DM,CVA,Lung disease,renal dise ase Hyperlipidemia HTN Hypothyroidism A-fib chronic--Dr. Garay Esophageal ring--s/p balloon dilations in 1999 and 2011--he had an esophageal obstruction 11/2015 requiring endoscopic relief in CT. EGD in 11/2015--mild strictur e at EGJ and mild esophagitis--dilated with an 18 mm balloon--started on Omeprazole Surgical History Surgery Date(Month/Year) appendectomy hernia surgery Right carpal tunnel surgery left quadriceps repair
--- OUTSIDE RECORDS SUMMARY | 2024-12-06 21:35 | XMS_ITS | Clinical Summary ---
Author Organization [facility] Address [address] [place] [address] Phone Care Team Providers Care Inspector Salvage Name Role Phone Maykel Levin MD Primary Care Provider Medications dabigatran etexilate (PRADAXA) 150 mg capsu Orally Twice a day Active levothyroxine (SYNTHROID, LEVOTHROID) 100 MCG tablet Orally Active latanoprost (XALATAN) 0.005 % ophthalmic solution Ophthalmic Active omeprazole (PRILOSEC) 20 MG capsule Take 2 capsules by mouth daily. Active furosemide (LASIX) 40 MG tablet Take 1 tablet by mouth daily. Active atenolol (TENORMIN) 100 MG tablet Take 1 tablet by mouth daily. Active atorvastatin (LIPITOR) 10 MG tablet Take 1 tablet by mouth daily. Active Social History Tobacco Use Types Packs/Day Years Used Date Smoking Tobacco: Never Assessed Education Answer Date Recorded Are you interested in more education? Not on tara e 07/02/2023 Are you concerned about learning? Not on file 07/02/2023 No 07/02/2023 No 07/02/2023 Digital Access Answer Date Recorded No 07/02/2023 No 07/02/2023 Reliable internet access at home? Not on file 07/02/2023 Device with a working camera? Not on file Sex and Gender Information Value Date Recorded Sex Assigned at Not on file Legal Sex Male 10:38 PM EDT Gender Identity Not on file Sexual Orientation Not on file Last Filed Vital Signs Vital Sign Reading Time Taken Comments Blood Pressure 117/87 05/28/2016 9:00 AM EST Pulse 83 05/28/2016 9:00 AM EST Temperature - - Respiratory Rate - - Oxygen Saturation - - Inhaled Oxygen Concentration - - Weight 81.6 kg (180 lb) 05/28/2016 9:00 AM EST Height 165.7 cm (5' 5.25 ) 05/28/2016 9:00 AM ES T Body Mass Index 29.72 05/28/2016 9:00 AM EST Plan of Treatment Health Maintenance Due Date Last Done Comments CREATININE LEVEL 1945 LIPID PANEL 1945 TSH LEVEL 1945 DEPRESSION SCREENING 1957 SMOKING Hx and SMOKELESS TOBACCO SCREENING 1958 HEPATITIS C SCREENING 1963 ZOSTER VACCINES (2 of 3) 03/29/2012 02/02/2012 RSV VACCINE (1 - 1-dose 75+ series) 01/28/2020 INFLUENZA VACCINE (#1) 2024 0, 12/15/2019, 01/03/2019, Additional history exists COVID-19 VACCINE ( season) 2024 Adult Td,Tdap Booster 05/03/2027 05/03/2017 PNEUMOCOCCAL VACCINES (50+ years) Completed 01/12/2019, 04/30/2015 HEPATITIS A VACCINES Aged Out No long er eligible based on patient's age to complete this topic HIB VACCINES Aged Out No longer eligi ble based on patient's age to complete this topic MENINGOCOCCAL VACCINES (ACWY) Aged Out No longer eligible based on patient's age to complete this topic MENINGOCOCCAL VACCINES (B) Aged Out N o longer eligible based on patient's age to complete this topic Medical Devices Not on file Insurance [facility] MED[facility] HMO REPLACEMENT [facility] MED[facility] REPLACEMENT [employer] [facility] RE[employer] [facility] MEDICARE [facility]MO REPLACEMENT [employer] [facility]AC[employer] Care Teams Inspector Salvage Relationship Specialty Start Date End Date Maykel Levin MD [address] [place] [address] [place] [address] PCP - General 04/01/17 Additional Source Comments The information contained in this document represents components of the legal health record. It is not the complete legal health record.[facility]
--- OUTSIDE RECORDS SUMMARY | 2024-12-06 21:37 | XMS_ITS | Patient Health Record ---
Author Organization Maykel Levin MD Address [address] [place], [place] [address] Care Team Providers Care Metal Handler Name Role Phone Maykel Levin Primary Care Provider Allergies No Known Allergies Results Component Value Reference Range Notes Thyroid Stimulating Hormone Reviewed date:02/03/2024 12:34:02 PM Interpretation: Performing Lab:[facility], [address] [place] [phone] Notes/Report: Thyroid Stimulating Hormone 0.77 0.32-4.0 uIU/mL TSH 3rd Generation ([facility]) Lipid Panel Reviewed date:08/02/2024 05:36:51 PM Interpretation: Performing Lab:[facility], [address] [place] [phone] Notes/Report: Triglycerides 95 <150 mg/dL Desirable Triglyceride: [...] low results in patients with liver disease. Complete Blood Count Auto Di ff (Not yet reviewed by provider) Interpretation: Performing Lab:[facility], [address] [place] [phone] Notes/Report: White Blood Count 6.1 4.8-10.8 X10*3/uL Red Blood Count 4.60 4.60-5.80 X10*6/uL Hemoglobin 15.2 14.0-18.0 g/dl Hematocrit 43.0 42.0-52.0 % Mean Corpuscular Volume 93.5 80.0-98.0 fL Mean Corpuscular Hemoglobin 33.0 27.0-33.0 pg Mean Corpuscular HGB Conc 35.3 31.0-36.0 g/dl Red Cell Distribution Width 13.8 11.0-16.0 % Platelet Count 113 160-400 X10*3/uL Mean Platelet Volume 10.4 9.4-12.4 fL Neutrophils Percent Auto 80.7 45-73 % Imm Gran Pct Auto 0.5 0.0-0.4 % Lymphocytes Percent Auto 5.4 20-40 % Monocytes Percent Auto 12.9 2-11 % Eosinophils Percent Auto 0.3 0-4 % Basophils Percent Auto 0.2 0-2 % NRBC Pct Auto 0.0 0.0-0.2 /100WBC Neutrophils Absolute Auto 4.9 2.0-8.3 x10*3/uL Imm Gran Abs Auto 0.03 0.00-0.03 X10*3/uL Lymphocytes Absolute Auto 0.3 1.2-4.9 X10*3/uL Monocytes Absolute Auto 0.8 0.1-1.2 X10*3/uL Eosinophils Absolute Auto 0.0 0.0-0.4 X10*3/uL Basophils Absolute Auto 0.0 0.0-0.2 X10*3/uL NRBC Abs Auto 0.000 0.0-0.012 X10*3/uL Prothrombin Time INR (Not ye t reviewed by provider) Interpretation: Performing Lab:[address] [phone] Notes/Report: Prothrombin Time 13.8 10.9-12.4 SEC INTERNATIONAL NORM RATIO 1.2 0.9-1.1 INTERNATIONAL NORMALIZED RATIO (INR) REFERENCE RANGES Reference Range For patients not on anticoagulant therapy: 0.9 - 1.1 INR ranges for oral anticoagulant therapy: For prevention and treatment of venous thrombosis and pulmonary embolism: 2.0 - 3.0 For acute myocardial infarction with aspirin therapy: 2.0 - 3.0 For acute myocardial infarction without aspirin therapy: 3.0 - 4.0 For patients with mechanical prosthetic heart valves: 2.5 - 3.5 Comprehensive Met. Panel (No t yet reviewed by provider) Interpretation: Performing Lab:[address] [phone] Notes/Report: Sodium 136 135-145 mmol/L Potassium 4.0 3.3-5.1 mmol/L Chloride 105 96-108 mmol/L Carbon Dioxide 22 22-29 mmol/L Anion Gap 13 12-20 Blood Urea Nitrogen 17 9-16 mg/dL Creatinine 1.23 0.5-1.4 mg/dL Creatinine Clr Calc Pharmacy 48.6 eGFR (calculated from the MDRD study equation) and eCrCl (calculated from the Cockcroft-Gault equation) are based on different parameters and may not yield comparable results. If eCrCl result is absurd, please check patient's height/weight. Estimated Glomerular Filt Rate 57 Chronic Kidney Disease: Estimated GFR < 60 mL/min/1.73m2 Severe Kidney Disease: Estimated GFR < 15 mL/min/1.73m2 Glucose Random 114 60-115 mg/dL Calcium 9.0 8.4-10.2 mg/dL Bilirubin Total 1.7 0.0-1.0 mg/dL Aspartate Amino Transferase 23 5-37 U/L Alanine Aminotransferase 21 0-40 U/L Total Protein 6.4 6.5-8.0 g/dL Albumin Level 4.1 3.5-5.0 g/dL Alkaline Phosphatase 70 39-117 U/L Magnesium (Not yet reviewed by provider) Interpretation: Performing Lab:[facility], [address] [place] [phone] Notes/Report: Magnesium 1.7 1.6-2.6 mg/dL Troponin-I High Sensitivity (Not yet reviewed by provider) Interpretation: Performing Lab:[address] [phone] Notes/Report: Troponin-I High Sensitivity 63.2 <3.5-35.0 ng/L The [facility] high sensitivity Troponin-I results should be used in conjunction with other diagnostic information such as ECG, clinical observations and information, and patient symptoms to aid in the diagnosis of [place]. COVID-19 ID NOW ([facility]) (No t yet reviewed by provider) Interpretation: Performing Lab:[address] [phone] Notes/Report: IDNOW Serial# [id number] COVID-19 Test Positive Negative COVID-19 Note See Note Results are for the identification of SARS-CoV2 RNA. The SARS-CoV2 RNA is generally detectable in respiratory samples during the acute phase of infection. Positive results are indicative of the presence of SARS-CoV-2 RNA; clinical correlation with patient history and other diagnostic information is necessary to determine patient infection status. Positive results do not rule out bacterial infection or co-infection with other viruses. Testing facilities within the [facility] and its territories are required to report all positive results to the appropriate public health authorities. Negative results should be treated as presumptive and, if inconsistent with clinical signs and symptoms or necessary for patient management, should be tested with different authorized or cleared molecular tests. Negative results do not preclude SARS-CoV2 RNA infection and should not be used as the sole basis for patient management decisions. Negative results should be considered in the context of a patient's recent exposures, history and the presence of clinical signs and symptoms consistent with COVID-19. This test has been authorized by the FDA under an Emergency Use Authorization (EUA) for use by authorized laboratories. Testing performed on the [facility] ID NOW utilizing NAAT. Venous Blood Gases - POC (No t yet reviewed by provider) Interpretation: Performing Lab:[facility], [address] [place] [phone] Notes/Report: VBG pH 7.42 7.32-7.43 METER #: [id number] additional_comment: Cb ribl VBG pCO2 34 METER #: [id number] additional_comment: Cb ribl VBG pO2 49 METER #: [id number] additional_comment: Cb ribl VBG Base Excess -0.9 METER #: [id number] additional_comment: Cb ribl VBG HCO3 22 22-26 mmol/L METER #: [id number] additional_comment: Cb ribl VBG O2 % Saturation 77.0 METER #: [id number] additional_comment: Cb ribl Influenza A B2 ID NOW ([facility]) (Not yet reviewed by provider) Interpretation: Performing Lab:[facility], [address] [place] [phone] Notes/Report: [facility] Serial# [id number] Influenza A Negative Negative Influenza B2 Negative Negative Influenza A B2 Note See Note The [facility] NOW Influenza A B2 test is used for the qualitative detection of influenza A and B from patients with signs and symptoms of respiratory infection. Negative results do not preclude influenza virus infection and should not be used as the sole basis for diagnosis, treatment or other patient management decisions. There is a risk of false negative results due to the presence of variants in the viral targets of the assay, low levels of virus in the specimen and co-infection with Respiratory Syncytial Virus. XR chest 2V (Not yet reviewe d by provider) Interpretation: Performing Lab: Notes/Report: [address] [place] [address] XRay Report Signed Patient: Madan Oliveira MR#: [id number] : 1945 Acct:[id number] Age/Sex: 79 / M ADM Date: 12/06/24 Loc: .ED Attending Dr: Ordering Physician: Ashley Pierce Date of Service: 12/06/24 Procedure(s): XR chest 2V Accession Number(s): [id number] cc: Maykel Levin MD; Ashley Pierce Reason for Exam: SOB CLINICAL HISTORY: SOB 2 view chest x-ray Comparison: CR/SR - XR CHEST 2 VIEWS - 11/11/23 11:37 EDT Findings: Minimal atelectasis at the lung bases. No consolidation or effusion. Normal size heart. No acute fracture. IMPRESSION: Minimal bibasilar atelectasis. This document has been electronically signed by: Hannah Mazariegos MD on 12/06/2024 21:06:07 Dictated By: Hannah Mazariegos MD Signed By: <Electronically signed by Hannah Mazariegos MD in [place]> 12/06/242106 DD/ 05 TD/TT: 12/06/242105 Cell Lead: [place] [address] XRay Report Signed Patient: Madan Oliveira MR#: [id number] : 1945 Acct:[id number] Age/Sex: 79 / M ADM Date: 12/06/24 Loc: .ED Attending Dr: Ordering Physician: Ashley Pierce Date of Service: 12/06/24 Procedure(s): XR albert st 2V Accession Number(s): [id number] cc: Maykel Levin MD; Ashley Pierce Reason for Exam: SOB CLINICAL HISTORY: SOB 2 view chest x-ray Comparison: CR/SR - XR CHEST 2 VIEWS - 11/11/23 11:37 EDT Findings: Minimal atelectasis at the lung bases. No consolidation or effusion. Normal size heart. No acute fracture. IMPRESSION: Minimal bibasilar atelectasis. This document has be en electronically signed by: Hannah Mazariegos MD on 12/06/2024 21:06:07 Dictated By: Hannah Mazariegos MD Signed By: <Electronically signed by Hannah Mazariegos MD in [place]> 12/06/242106 DD/ 05 TD/TT: 12/06/242105 Cell Lead: Reason For Referral No Information Medications Medication [...] Administe red Fluarix Quadrivalent IM Intramuscular 12/18/2014 Administorin red Prevnar 13 IM Intramuscular 04/30/2015 Administered [...] Patient states smoke s an occasional cigar. 5-25-12 Patient states smoke s an occasional cigar. 08-21-11 Patient states smoke s an occasional cigar. Problems Problem Type SNOMED Code ICD Code Onset Dates Problem Status W/U Status Risk Notes Problem Erectile dysfunction (041111137) Erectile Dysfunction (607.84) Active confirmed Problem 38595674 Prostatism (N40.0) Active confirmed Problem 30401490 Hypercalcemia (E83.52) Active confirme d Problem 098307385 Chronic atrial fibrillation (I48.2) Active confirmed Problem Acute on chronic diastolic heart failure (038286478) Acute on chronic diastolic (congestive) heart failure (I50.33) Active confirmed Problem Ascites (466096891) Other ascites (R18.8) Active confirmed Problem 5386574 Diastolic dysfun ction (I51.9) Active confirmed Problem 550134792 Tubular adenoma of colon (D12.6) Active confirmed Problem 66907333 Essential hypert ension (I10) Active confirmed Problem 875935680 Acquired hypothy roidism (E03.9) Active confirmed Problem 56664915 Monocytosis (D72.821) Active confirmed Problem 713930074 Chronic a-fib (I48.2) Active confirme d Problem Acute diastolic heart failure (892363471) Acute diastolic congestive heart failure (I50.31) Active confirmed Problem 628719640 Pure hypercholesterolemia (E78.00) Active confirmed Problem Acute asthma (200256971) Acute asthma (J45.909) Active confirmed Problem 775217068 BMI 30.0-30.9,ad ult (Z68.30) Active confirmed Problem Tomography - chest abnormal (769379735) Abnormal CT scan, chest (R93.89) Active confirmed Problem 564799103 Chronic atrial fibrillation, unspecified (I48.20) Active confirmed Problem 827319914 Chronic atrial fibrillation (I48.20) Active confirmed Vital [...] Maykel Levin MD [address] [place] [phone] 02/08/2024 Maykel Levin Essential hypertensi on I10 ; Encounter for general adult medical examination without abnormal findings Z00.00 ; Prostatism N40.0 ; Acute diastolic congestive heart failure I50.31 ; Acquired hypothyroidism E03.9 ; Pure hypercholesterolemia E78.00 and Chronic atrial fibrillation I48.20 Maykel Levin MD [address] [place] [phone] 08/07/2024 Maykel Levin Pure hypercholestero lemia E78.00 ; Onychomycosis B35.1 and Acute on chronic diastolic (congestive) heart failure I50.33 Maykel Levin MD [address] [place] [phone] 06/12/2024 Maykel Levin Assessments Encounter Date Diagnosis [...] Onychomycosis (ICD-1 0 - B35.1) to see needle polisher 02/08/2024 Prostatism (ICD-10 - N40.0) doing well. [...] & LAT 07/25/2021 US RENAL BILATERAL 03/02/2017 Complete Blood Count Auto Diff Prothrombin Time INR 12/06/2024 Comprehensive Met. Panel 12/06/2024 Magnesium 12/06/2024 Troponin-I High Sensitivity 12/06/2024 US abdomen complete 08/05/2021 XR chest 2V 12/06/2024 COVID-19 ID NOW ([facility]) 12/06/2024 Venous Blood Gases - POC 12/06/2024 Influenza A B2 ID NOW ([facility]) Next Appt Details Provider Name:Maykelmatt Jason ier, 02/05/2025 07:15:00 AM, [address] [facility], [address], [place], [place], [phone], Provider Name:Maykel Zarate Eren ier, 02/12/2025 09:30:00 AM, [address], [address], [place], [place], [phone], Insurance Providers Payer Name Payer Address Payer Phone Subscriber Number Group Number Insured Name Patient Relationship to Insured Coverage Start Date Coverage End Date [employer] [address] [address] [place] [phone] [id number] Madan Barrios Self - patient is the insured [employer] [address] [place] [address] [id number] Madan Barrios Self - patient is the insured Medical (General) History Medical History History ICD Code Colonoscopy 2006; colonoscop y and endoscopy done 01/15/2012; colonoscopy by Dr. Dickey 03/11/17 - no more indicated
[2024-12-06 21:39] LABS: Appearance Urine Clear; Glucose Urine UA >=1000 mg/dL (Negative); PH 6.0 (5.0-9.0); Specific Gravity - Urine 1.020 (1.005-1.025); UMIC TRIGGER UACC YES
[2024-12-06 23:42] VITALS: BP 106/70; PULSE 96; RESP 18; TEMP 37; O2SAT 96
[2024-12-07 00:03] VITALS: BP 106/70; PULSE 96; RESP 18; TEMP 37; O2SAT 96
== END 2024-12-07 00:04 | disposition home or self-care (01) ==
PROVIDERS: Physician Assistant Medical; Emergency Provider Student in an Organized Health Care Education/Training Program; PCP Internal Medicine
DX: U07.1 COVID-19 (principal); B34.9 Viral infection, unspecified; R51.9 Headache, unspecified; R05.9 Cough, unspecified; R53.1 Weakness; Z79.899 Other long term (current) drug therapy
CPT/HCPCS: 71046; 80053; 81001; 82803; 83735; 84484; 85025; 85610; 87502; 87635; 93005; 99283; 99284

== ENCOUNTER → 2024-12-06 20:08 | Outpatient (BNV) | payer MEDICARE, SELFPAY | PROVIDERS: Emergency Provider Student in an Organized Health Care Education/Training Program; PCP Internal Medicine; Visit Provider Internal Medicine Cardiovascular Disease | DX: I48.91 Unspecified atrial fibrillation (principal) | CPT/HCPCS: 93010 ==

== ENCOUNTER → 2024-12-06 20:08 | Outpatient (BNV) | payer MEDICARE, SELFPAY | PROVIDERS: Emergency Provider Student in an Organized Health Care Education/Training Program; PCP Internal Medicine; Visit Provider Radiology Diagnostic Radiology | DX: R06.02 Shortness of breath (principal) | CPT/HCPCS: 71046 ==

== ENCOUNTER 2025-01-29 12:09 | Outpatient (AMB) | payer MEDICARE, SELFPAY ==
--- OUTSIDE RECORDS SUMMARY | 2023-08-06 11:45 | XMS_ITS ---
Author Organization Maykel Levin MD Address [address] [facility] [address] [place] [phone] Care Team Providers Care Etch [employer] Name Role Phone Maykel Levin Primary Care Provider [phone] Allergies No Known Allergies REASON FOR VISIT 6 MO F/U, No Covid symptoms Encounters Encounter Location Date Provider Diagnosis Maykel Levin MD [address] [facility] [address] [place] [phone] 08/06/2023 Maykel Levin Plan Of Treatment Next Appt Details Provider Name:Maykel stewart, 02/05/2025 07:15:00 AM, [address] [place] [address], [address], [phone], Provider Name:Maykel stewart, 02/12/2025 09:30:00 AM, [address] [place] [address], [address], [place], [place], [phone], Progress Notes * Madan OLIVEIRA JDOB :1945 (80 yo M)Acc No.[id number]:08/06/2023 Progress Notes Patient: Madan CLAIRE Provider: Marilee Levin MD :1945 A ge:78 Y S ex:Male Date:08/06/2023 Address:[address] [place], [place] [phone] Subjective: * Chief Complaints: * 1 . 6 MO F/U. 2. No Covid symptoms. * ROS: G eneral/Constitutional: Denies C hills. D enies F atigue. D enies F ever. D enies H eadache. E NT: Denies S ore throat. R espiratory: Denies C ough. D enies S hortness of breath at rest. D enies S hortness of breath with exertion. G astrointestinal: Denies D iarrhea. D enies N ausea. * Medical History: C olonoscopy 2006; colonoscopy and endoscopy done 01/15/2012; colonoscopy by Dr. Dickey 03/11/17 - no more indicated. * Allergies: N .K.D.A. Objective: * Vitals: * P ast Orders: L ab:Lipid Panel (Order Date - 08/03/2023) (Collection Date & Time - 08/03/2023 09:04 AM) Value Reference Range Triglycerides 79 <150 - mg/dL Cholesterol 165 <200 - mg/dL LDL Cholesterol Calculated 94 <100 - mg/dL HDL Cholesterol 56 >40 - mg/dL Assessment: Plan: * Treatment: * * The named appointment provid er may or may not be the originator of this progress note, and it is not deemed complete until electronically signed by the appointment provider. Sign off status: Pending * Provider: Marilee Levin MD Date: 0 08/06/2023 Generated for Wilmer salazar/Tequila/Brandyitting on: 1 03/31/2024 03:17 PM EST
--- OUTSIDE RECORDS SUMMARY | 2023-08-11 11:12 | XMS_ITS ---
Author Organization Maykel Levin MD Address [address] [facility] [address] [place] [phone] Care Team Providers Care Plumber Assistant Name Role Phone Maykel Levin Primary Care Provider [phone] REASON FOR VISIT discharge Encounters Encounter Location Date Provider Diagnosis Maykel Levin MD [address] [place] [address] [place] [phone] 08/11/2023 Maykel Levin Plan Of Treatment Next Appt Details Provider Name:Maykel stewart, 02/05/2025 07:15:00 AM, [address] [place] [address], [phone], Provider Name:Maykel stewart, 02/12/2025 09:30:00 AM, [address] [place] [address], [phone], Progress Notes * Madan OLIVEIRA JDOB :1945 (78 yo M)Acc No.[id number]:08/11/2023 Patient: Lucy govnid Madan Little :1945 A ge:78 Y S ex:Male Address:[address] [place] [id number] * true * Date: Generated for Wilmer salazar/Tequila/eTransmitting on: 03/31/2024 03:18 PM EST
--- OUTSIDE RECORDS SUMMARY | 2023-08-19 06:45 | XMS_ITS ---
Author Organization Maykel Levin MD Address [address] [place] [phone] Care Team Providers Care Pulmonologist Name Role Phone Maykel Levin Primary Care Provider Allergies No Known Allergies REASON FOR VISIT [...] kg/m2 08/19/2023 weight is down 7 pounds [facility] e 02-01-23 Encounters Encounter Location Date Provider Diagnosis Maykel Levin MD [address] [place] [address] [place] [phone] 08/19/2023 Maykel Levin Septicemia A41.9 Assessments Encounter [...] Next Appt Details Provider Name:Maykel Jason ier, 02/05/2025 07:15:00 AM, [address] [place] [address], [address], [place], [place], [phone], Provider Name:Maykel Jason ier, 02/12/2025 09:30:00 AM, [address] [place] [address], [address], [place], [place], [phone], Progress Notes * Madan OLIVEIRADOB :1945 (78 yo M)Acc No.[id number]:08/19/2023 Patient: Lucy bowenabrahan Madan Fitch Provider: Marilee Levin MD :1945 A ge:78 Y S ex:Male Date:08/19/2023 Address:[address] [place], [place] [phone] Subjective: * Chief Complaints: * P H/TCMNo [...] tenderness. ? Assessment: * Assessment: 1. S [facility] - A41.9 (Primary) Plan: * Treatment: * Procedure Codes: * * Sign off status: Completed true * Provider: Marilee Levin MD Date: 0 08/19/2023 Generated for Wilmer salazar/Tequila/Brandyitting on: 03/31/2024 03:18 PM EST History and Physical Notes * HPI [...]
--- OUTSIDE RECORDS SUMMARY | 2023-11-19 08:52 | XMS_ITS ---
Author Organization Maykel Levin MD Address [address] [place] [phone] Care Team Providers Care Hand Compositor Name Role Phone Maykel Levin Primary Care Provider REASON FOR VISIT REFILL ALBUTEROL Medications Medication SIG (Take, Route, Frequency, Duration) Notes Start Date End Date Status Albuterol Sulfate HFA 108 (90 Base) MCG/ACT inhale 1 puff into the lungs every 4 hours for 30 days Inhalation every 4 hrs for 90 days Active Encounters Encounter Location Date Provider Diagnosis Maykel Levin MD [address] [place] [phone] 11/19/2023 Maykel Levin Acute asthma J45.909 Assessments Encounter Date Diagnosis (ICD Code) Assessment Notes Treatment Notes Treatment Clinical Notes Section Notes 11/19/2023 Acute asthma (ICD-10 - J45.909) Plan Of Treatment Medication Medication Name Sig Start Date Stop Date Notes Albuterol Sulfate HFA 108 (9 0 Base) MCG/ACT inhale 1 puff into the lungs every 4 hours for 30 days Inhalation every 4 hrs for 90 days Next Appt Details Provider Name:Maykel Jason marianner, 02/05/2025 07:15:00 AM, [address] [place] [address], [place] [address], [place], [place], [phone], Provider Name:Maykel Jason ier, 02/12/2025 09:30:00 AM, [address] [place] [address], [place] [address], [place], [place], [phone], Progress Notes * Madan OLIVEIRADOB :1945 (78 yo M)Acc No.[id number]:11/19/2023 Patient: Madan Butler :1945 A ge:78 Y S ex:Male Address:[address] [place] [id number] * Refills Refill Albuterol Sulfate HFA Aerosol Solution, 108 (90 Base) MCG/ACT, Inhalation, 3, inhale 1 puff into the lungs every 4 hours for 30 days, every 4 hrs, 90 days, Refills=3 * true * Date: Generated for Wilmer salazar/Tequila/Brandyitting on: 03/31/2024 03:19 PM EST
--- OUTSIDE RECORDS SUMMARY | 2024-02-01 04:15 | XMS_ITS ---
Author Organization Maykel Levin MD Address [address] [place] [phone] Care Team Providers Care Editor Publications Name Role Phone Maykel Levin Primary Care Provider Results Component Value Reference Range Notes Complete Blood Count Auto Di ff Reviewed date:02/02/2024 12:17:54 PM Interpretation: Performing Lab:[facility], [address] [place] [phone] Notes/Report: White Blood Count 5.2 4.8-10.8 X10*3/uL [...] NRBC Abs Auto 0.000 0.0-0.012 X10*3/uL Comprehensive [place]. Panel Fa st Reviewed date:02/03/2024 12:34:47 PM Interpretation: Performing Lab:[facility], [address] [place] [phone] Notes/Report: Sodium 139 135-145 mmol/L Potassium 4.3 3.3-5.1 mmol/L Chloride 105 96-108 mmol/L Carbon Dioxide 25 22-29 mmol/L Anion Gap 13 12-20 Blood Urea Nitrogen 14 9-16 mg/dL Creatinine 1.18 0.5-1.4 mg/dL Estimated Glomerular Filt Rate 60 NOTE: For -Portuguese individuals, multiply the result by 1.210. Chronic [...] Panel Reviewed date:02/03/2024 12:34:56 PM Interpretation: Performing Lab:[address] [phone] Notes/Report: Triglycerides 77 <150 mg/dL Desirable Triglyceride: [...] (Free>4and<10) Reviewed date:02/02/2024 12:29:44 PM Interpretation: Performing Lab:[address] [phone] Notes/Report: PSA,Total (Free>4and<10) 3.22 0.00-4.00 ng/mL A [...] between 4.0 and 10.0 ng/mL. PSA methodology: Chion Alinity i Chemiluminescent Microparticle Immunoassay (CMIA) UA ClnCatch+Micro w/rflx Cul t Reviewed date:02/02/2024 12:15:10 PM Interpretation: Performing Lab:[facility], [address] [place] [phone] Notes/Report: [id number] Urine, Clean Catch Color Urine Yellow Appearance Urine Clear PH 6.0 5.0-9.0 Glucose Urine UA >=1000 Negative mg/dL Urine Blood Negative Negative Specific [place] - Urine 1.015 1.005-1.025 Urine Protein Negative [...] Location Date Provider Diagnosis Maykel Levin MD [address] [place] [address] [place] [phone] 02/01/2024 Maykel Levin Blood tests for routine [...] Details Provider Name:Maykel stewart, 02/05/2025 07:15:00 AM, [address] [place] [address], [address], [place], [place], [phone], Provider Name:Maykel stewart, 02/12/2025 09:30:00 AM, [address] [place] [address], Suite [facility], [place], [place], [phone], Progress Notes * Madan OLIVEIRA JDOB :1945 (80 yo M)Acc No.[id number]:02/01/2024 Progress Note Patient: Madan CLAIRE Provider: Marilee Levin MD :1945 A ge:79 Y S ex:Male Date:02/01/2024 Address:[address] [place], [place] [phone] Subjective: * Chief Complaints: * 1 . [...] - 02/02/2024 08:45 AM) L AB: Comprehensive [place]. Panel Fast (Collection Date & Time - [...] - 02/02/2024 08:45 AM) L AB: Comprehensive [place]. Panel Fast (Collection Date & Time - [...] - 02/02/2024 08:45 AM) L AB: Comprehensive [place]. Panel Fast (Collection Date & Time - [...] - 02/02/2024 08:45 AM) L AB: Comprehensive [place]. Panel Fast (Collection Date & Time - [...] - 02/02/2024 08:45 AM) L AB: Comprehensive [place]. Panel Fast (Collection Date & Time - [...] Date: 04/02/2023 Generated for Wilmer salazar/Tequila/Griselda on: 03/31/2024 03:20 PM EST
--- OUTSIDE RECORDS SUMMARY | 2024-02-08 04:30 | XMS_ITS ---
Author Organization Maykel Levin MD Address [address] [place] [id number] Care Team Providers Care Mason Helper Name Role Phone Maykel Levin Primary Care [...] Location Date Provider Diagnosis Maykel Levin MD [address] [place] [address] [address] [place], [place] [phone] 02/08/2024 Maykel Levin Essential hypertensi on I10 [...] Up: 6 Months, Reason: Provider Name:Maykel stewart, 02/05/2025 07:15:00 AM, [address] [facility], [address], [place], [place], [phone], Provider Name:Maykel Jason ier, 02/12/2025 09:30:00 AM, [address] [facility], [address], [place], [place], [phone], Progress Notes * Madan OLIVEIRADOB :1945 (79 yo M)Acc No.[id number]:02/08/2024 Progress Notes Patient: Madan Butler Provider: Marilee Levin MD :1945 A ge:79 Y S ex:Male Date:02/08/2024 Address:[address] [place], [place] [phone] Subjective: * Chief Complaints: * A NNUAL [...] outside of the [place]: yes, [place]. Patient states smokes an occasional cigar. * [...] Auto 0.000 0.0-0.012 - X10*3/uL L ab:Comprehensive [place]. Panel Fast (Order Date - 02/01/2024) (Collection [...] mg/dL Urine Blood Negative Negative - Specific [place] - Urine 1.015 1.005-1.025 - Urine Protein [...] ucosa moist. THROAT: c lear. NECK/THYROID: n evette supple, full range of motion, no cervical [...] Levin MD Date: 04/09/2023 Generated for Wilmer salazar/Tequila/Griselda on: 03/31/2024 03:19 PM EST History and Physical Notes * [...] Total Score: 0 Interpretation and Intervention Depression Priyae ben Findings: Negative Follow-Up for Depression: : review [...]
--- OUTSIDE RECORDS SUMMARY | 2024-06-12 04:23 | XMS_ITS ---
Author Organization Maykel Levin MD Address [address] [facility] [address] [place] [phone] Care Team Providers Care Wind Site Manager Name Role Phone Maykel Levin Primary Care Provider REASON FOR VISIT HCC Risk Codes 08/07 Encounters Encounter Location Date Provider Diagnosis Maykel Levin MD [address] [facility] [address] [place] [phone] 06/12/2024 Maykel Levin Plan Of Treatment Next Appt Details Provider Name:Maykel stewart, 02/05/2025 07:15:00 AM, [address] [place] [address], [address], [phone], Provider Name:Maykel stewart, 02/12/2025 09:30:00 AM, [address] [place] [address], [address], [phone], Progress Notes * Madan OLIVEIRA JDOB :1945 (79 yo M)Acc No.[id number]:06/12/2024 Patient: Lucy Madan DELCID Little :1945 A ge:79 Y S ex:Male Address:[address] [place], [place] [address] [id number] * true * Date: Generated for Wilmer salazar/Tequila/Enocransmitting on: 03/31/2024 03:19 PM EST
--- OUTSIDE RECORDS SUMMARY | 2024-07-31 02:45 | XMS_ITS ---
Author Organization Maykel Levin MD Address [address] [place] [phone] Care Team Providers Care Polishing Machine Operator Name Role Phone Maykel Levin Primary Care Provider Results Component Value Reference Range Notes Liver Panel Reviewed date:08/02/2024 05:36:26 PM Interpretation: Performing Lab:[facility], [address] [place] [phone] Notes/Report: Bilirubin Total 1.7 0.0-1.0 mg/dL Slight Icte morena. Bilirubin Direct 0.5 0.0-0.5 mg/dL Slight Ict erus. Aspartate Amino Transferase 26 5-37 U/L Alanine Aminotransferase 20 0-40 U/L Total Protein 7.0 6.5-8.0 g/dL Albumin Level 4.3 3.5-5.0 g/dL Alkaline Phosphatase 71 39-117 U/L REASON FOR VISIT fasting lipids Encounters Encounter Location Date Provider Diagnosis Maykel Levin MD [address] [place] [address] [address] [place], [place] [phone] 07/31/2024 Maykel Levin Pure hypercholestero lemia E78.00 Assessments Encounter Date Diagnosis (ICD Code) Assessment Notes Treatment Notes Treatment Clinical Notes Section Notes 07/31/2024 Pure hypercholesterolemia (ICD-10 - E78.00) Plan Of Treatment Pending Test Test Name Order Date Lipid Panel with Reflex 07/31/2024 Next Appt Details Provider Name:Maykel Jason ier, 02/05/2025 07:15:00 AM, [address] [place] [address], [address], [place], [place], [phone], Provider Name:Maykel Jason ierussell, 02/12/2025 09:30:00 AM, [address] [place] [address], [address], [place], [place], [phone], Progress Notes * Madan OLIVEIRADOB :1945 (80 yo M)Acc No.[id number]:07/31/2024 Progress Note Patient: Lucy BEEBEMadan HALL Little Provider: Marilee Levin MD :1945 A ge:79 Y S ex:Male Date:07/31/2024 Address:[address] [place], [place] [phone] Subjective: * Chief Complaints: * 1 . Fasting lipids. * Medical History: Objective: * Vitals: Assessment: * Assessment: 1. P ure hypercholesterolemia - E78.00 (Primary) Plan: * Treatment: * * The named appointment provid er may or may not be the originator of this progress note, and it is not deemed complete until electronically signed by the appointment provider. Sign off status: Pending * Provider: Marilee Levin MD Date: 0 07/31/2024 Generated for Wilmer salazar/Tequila/Griselda on: 03/31/2024 03:18 PM EST
--- OUTSIDE RECORDS SUMMARY | 2024-08-07 04:00 | XMS_ITS ---
Author Organization Maykel Levin MD Address [address] [place] [phone] Care Team Providers Care Fuel Cell Systems Engineer Name Role Phone Maykel Levin Primary Care [...] Problem Acute on chronic diastolic heart failure (853430198) Acute on chronic diastolic (congestive) heart failure (I50.33) Active confirmed Vital Signs Blood pressure systolic 120 mm Hg 08/08/19 25 Blood pressure diastolic 70 mm Hg 025 Height 66 in 08/07/2024 Weight 184 lbs 08/07/2024 BMI 29.7 kg/m2 08/07/2024 weight is up 2 pounds since 02-08-24 Encounters Encounter Location Date Provider Diagnosis Maykel Levin MD [address] [place] [address] Drive [address] [place] [phone] 08/07/2024 Maykel Levin Pure hypercholestero lemia E78.00 [...] Onychomycosis (ICD-1 0 - B35.1) to see beauty culturist 08/07/2024 Acute on chronic diastolic (congestive) heart [...] will continue to monitor Onychomycosis to see beauty culturist Acute on chronic diastolic ( congestive) heart failure stable, will cntnue current regiment Other stable, will continu e current regiment Next Appt Details Provider Name:Maykel stewart, 02/05/2025 07:15:00 AM, [address] [place] [address], [address], [phone], Provider Name:Maykel stewart, 02/12/2025 09:30:00 AM, [address] [place] [address], [place] [address], [place], [place], [phone], Progress Notes * Madan OLIVEIRADOB :1945 (79 yo M)Acc No.[id number]:08/07/2024 Progress Notes Patient: Madan CLAIRE Provider: Marilee Levin MD :1945 A ge:79 Y S ex:Male Date:08/07/2024 Address:[address] [place], [place] [phone] Subjective: * Chief Complaints: * 6 monthCheck [...] of breath. G astrointestinal: Denies D iarrhea. D enies N ausea. * Medical History: * Surgical History: [...] Treatment: 2. O nychomycosis Notes: to see beauty culturist 3. A cute on chronic diastolic (congestive) [...] MD Date: 0 08/07/2024 Generated for Wilmer salazar/Tequila/Griselda on: 03/31/2024 03:19 [...]
--- OUTSIDE RECORDS SUMMARY | 2024-12-08 08:19 | XMS_ITS ---
Author Organization Maykel Levin MD Address [address] [facility] [address] [place] [phone] Care Team Providers Care Instructor Physical Name Role Phone Maykel Levin Primary Care Provider REASON FOR VISIT ER Encounters Encounter Location Date Provider Diagnosis Maykel Levin MD [address] [place] [address] [place] [phone] 12/08/2024 Maykel Levin Plan Of Treatment Next Appt Details Provider Name:Maykel stewart, 02/05/2025 07:15:00 AM, [address] [place] [address], [phone], Provider Name:Maykel stewart, 02/12/2025 09:30:00 AM, [address] [place] [address], [phone], Progress Notes * Madan OLIVEIRA JDOB :1945 (79 yo M)Acc No.[id number]:12/08/2024 Patient: Lucy Madan DELCID Little :1945 A ge:79 Y S ex:Male Address:[address] [place] [address] * true * Date: Generated for Wilmer salazar/Tequila/eTransmitting on: 03/31/2024 03:19 PM EST
--- NOTE | 2025-01-29 12:28 | MHC.OFFVIS ---
Vital Signs 01/29/25 12:29 Height 5 ft 9 in Weight 180 lb 12.465 oz BMI 26.7 BP 122/74 Blood Pressure Location Lt brachial Position Sitting Pulse 77 Intake Visit Reasons: 6 mth w/ ekg Intake Note: 6 month follow-up with ekg feeling good Cyber Intelligence Analyst Required: No Allergies No Known Allergies Allergy (Verified 12/06/24 20:07) Medication List - Last Reconciled 01/29/25 by Miguel A Garay MD atorvastatin 10 mg PO DAILY dabigatran etexilate (Pradaxa) 150 mg PO BID diltiazem HCl CD 120 mg PO DAILY empagliflozin (Jardiance) 10 mg PO DAILY@1200 finasteride 5 mg PO DAILY furosemide 40 mg PO DAILY latanoprost 0.005% 1 drp ophthalmic (eye) BEDTIME levothyroxine 100 mcg PO DAILY metoprolol succinate ER 100 mg PO BID omeprazole 20 mg PO DAILY tamsulosin 0.4 mg PO BEDTIME HPI Comments Details: Dirk comes for follow-up. Recently had a viral syndrome associated with COVID. Otherwise he is doing well. He has no worsening heart failure symptoms. He denies any worsening shortness of breath, orthopnea, PND, weight gain, leg edema, abdominal distension. Denies any prolonged palpitation irregular heartbeat. Takes all his medications. No bleeding issues or neurologic events. No lightheadedness, syncope. [facility] Medical History Generalized anxiety disorder Hypothyroidism BPH (benign prostatic hyperplasia) Elevated troponin Chronic kidney disease (HFpEF) heart failure with preserved ejection fraction Chronic atrial fibrillation HTN (hypertension) Tricuspid regurgitation Biatrial enlargement Surgical History Hx of cataract surgery History of esophageal dilatation Hx of inguinal hernia repair History of appendectomy Family History Father No problems noted. Mother HTN (hypertension) Social History Household Members: Spouse Housing: House Do you presently have visiting nurse or other home services: No Alcohol intake: current Alcohol intake frequency: 0-2 drinks per day Alcohol type: wine Patient Tobacco Use Status: Former Tobacco user Years Smoked: 10 +/- Advance Directives Date on File: 08/05/23 service: No Current occupational status: retired Review of Systems Const Denies chills, Denies fatigue, Denies fever(s), Denies frequent falls, Denies weakness, Denies weight gain and Denies weight loss ENT Denies dizziness Card Denies chest pain, Denies leg edema, Denies lightheadedness, Denies palpitations, Denies dyspnea, Denies dyspnea on exertion, Denies orthopnea and Denies other (loss of consciousness) Resp Denies cough, Denies dyspnea and Denies dyspnea on exertion GI Denies hematochezia and Denies change in stool character Musc Denies abnormal gait, Denies muscle weakness, Denies numbness, Denies radiating pain into limb and Denies tingling Neuro Denies abnormal gait, Denies dizziness, Denies frequent falls, Denies numbness, Denies tingling and Denies weakness Endo Denies fatigue and Denies palpitations Physical Exam Vital Signs: Last Vital Signs Pulse 77 01/29/25 12:29 BP 122/74 01/29/25 12:29 BMI result Body Mass Index 26.7 Const General: cooperative, comfortable, no acute distress, well developed, alert, awake, Physically active and well groomed Nutritional Appearance: well nourished and overweight Orientation/consciousness: patient oriented x3 Limitations: no limitations Neck Neck: Yes trachea midline, Yes supple and Yes no JVD Resp Effort & Inspection: normal respiratory effort Auscultation: clear to auscultation bilaterally Cardio Jugular venous distension: no JVD Rhythm: abnormal rhythm irregularly irregular Heart sounds: S1 normal heart sound present, S2 normal heart sound present, no click, no gallops, no murmurs and no rubs GI Auscultation: normal bowel sounds Skin General skin exam: no rashes or lesions noted Neuro General: patient oriented x3 and no focal motor deficits Extrem General: Yes no clubbing, cyanosis or edema Assessment & Plan Assessment & Plan (1) (HFpEF) heart failure with preserved ejection fraction: Code(s): I50.30 - Unspecified diastolic (congestive) heart failure Category: Medical Plan: Heart failure preserved ejection fraction, clinically euvolemic and well compensated current Jardiance therapy as well as with current Lasix therapy. Heart failure management discussed again. Daily weight monitoring avoidance salt loading was discussed. Continue the same. Additional diuretics as need be. Importance of avoiding salt was discussed. He understands. Advised to call me with worsening symptoms. Continue rate control for atrial fibrillation. Continue maintain activity level as tolerated. (2) Chronic atrial fibrillation: Code(s): I48.20 - Chronic atrial fibrillation, unspecified Category: Medical Plan: Chronic atrial fibrillation has failed rhythm control many years ago and has been maintained with rate control. Recently has developed heart failure syndrome as above but doing well from that perspective. Currently on dual therapy with metoprolol and Cardizem which she is tolerating well. Continue the same. Continue full oral anticoagulation, currently on Pradaxa 150 mg b.i.d.. Quarterly renal function test should be pursued. Will follow up in the clinic in 6 months time, sooner PRN. Thank you for allowing me to partake in his care Coding Level of Care Code Est Pt Level 4 (90819) Complex EM visit Add On G2211 Diagnoses (HFpEF) heart failure with preserved ejection fraction I50.30 Chronic atrial fibrillation I48.20
[2025-01-29 12:29] VITALS: BP 122/74; PULSE 77; BMI 26.7
--- OUTSIDE RECORDS SUMMARY | 2025-01-29 15:18 | XMS_ITS | Patient Health Record ---
Author Organization [facility] Address [address] [place] [address] Care Team Providers Care Vest Finisher Name Role Phone Maykel Levin MD Primary Care Provider Farhan Garner [phone] Reason For Referral No Information Medications Medication SIG (Take, Route, Frequency, Duration) Notes Start Date End Date Status lasix 40 mg once a day Active Latanoprost 0.005 % 1 drop into affected eye in the evening Ophthalmic Once a day Active Omeprazole 20 MG 1 Orally Once a day; Duration: 90 days 02/18/2021 Active Pradaxa 150 MG 1 capsule Orally Twi ce a day Active Atorvastatin Calcium 10 MG 1 tablet Oral ly Once a day Active Atenolol 100 MG 1 tablet Orally twic e a day Active Levoxyl 100mcg 1 tablet on an empty stomach in the morning Orally Once a day Active Omeprazole 20 MG 1 capsule Orally Onc e a day; Duration: 90 days 04/24/2016 Active Omeprazole 20 MG 1 capsule Orally Onc e a day; Duration: 90 days 04/04/2018 Active Omeprazole 20 MG Orally Once a day Active Omeprazole 20 MG 1 Orally Once a day; Duration: 90 days 04/25/2020 Active Problems Problem Type SNOMED Code ICD Code Onset Dates Problem Status W/U Status Risk Notes Problem Screening for malignant neoplasm of colon (407699436) Encounter for screening for malignant neoplasm of colon (Z12.11) Active confirmed Problem History of adenomatous polyp of colon (029005897) History of adenomatous polyp of colon (Z86.010) Active confirmed Problem Screening for malignant neoplasm of rectum (119786854) Encounter for screening for malignant neoplasm of rectum (Z12.12) Active confirmed Problem Esophageal stricture (79078098) Esophageal stricture (K22.2) Active confirmed Problem Dysphagia (44654828) Pharyngoesophageal dysphagia (R13.14) Active confirmed Problem Reflux esophagitis (695470105) Reflux esophagitis (K21.0) Active confirmed Plan Of Treatment Future Test Test Name Order Date UPPER GI ENDOSCOPY BALLOOON DILATION OF ESOPH 12/04/2015 COLONOSCOPY 12/25/2016 Insurance Providers Payer Name Payer Address Payer Phone Subscriber Number Group Number Insured Name Patient Relationship to Insured Coverage Start Date Coverage End Date [facility] [address] [place] [phone] [id number] MEG CRAIG Self - patient is the insured Medical (General) History Medical History History ICD Code Tubular adenomas of the colo n--removed in 1999 and December of 2011--a colonoscopy in 2006 revealed only a hyperplastic polyp Denies ME,DM,CVA,Lung disease,renal dise ase Hyperlipidemia HTN Hypothyroidism A-fib [...]
--- OUTSIDE RECORDS SUMMARY | 2025-01-29 15:19 | XMS_ITS | Clinical Summary ---
Author Organization [facility] Address [address] [place] [address] Phone Care Team Providers Care Accounting Machine Servicer Name Role Phone Maykel Levin MD Primary [...] SMOKING Hx and SMOKELESS TOBACCO SCREENING 1958 ZOSTER VACCINES (2 of 3) 03/29/2012 02/02/2012 RSV VACCINE (1 - 1-dose 75+ series) 01/28/2020 INFLUENZA VACCINE (#1) 2024 0, 12/15/2019, 01/03/2019, Additional history exists COVID-19 VACCINE (2024- season) 2024 Adult Td,Tdap Booster 05/03/2027 05/03/2017 [...] topic Medical Devices Not on file Insurance [employer] [place] [employer]EMENT [employer] [place] [employer]EMENT [employer] [place] [employer] HMO REPLACEMENT [facility] MEDIC[facility] HMO REPLACEMENT [employer] [place] [employer]PLACEMENT [employer] [place] [employer]ACEMENT Care Teams Accounting Machine Servicer Relationship Specialty Start Date End Date Maykel Levin MD [address] [place] [address] [place] [address] PCP - General 04/01/17 Additional Source Comments The information contained in this document represents components of the legal health record. It is not the complete legal health record.[facility]
--- OUTSIDE RECORDS SUMMARY | 2025-01-29 15:21 | XMS_ITS | Patient Health Record ---
Author Organization Maykel Levin MD Address [address] [place], [place] [id number] Care Team Providers Care Dynamicist Name Role Phone Maykel Levin Primary Care Provider Allergies No Known Allergies Results Component Value Reference Range Notes Thyroid Stimulating Hormone Reviewed date:02/03/2024 12:34:02 PM Interpretation: Performing Lab:[facility], [address] [place] [phone] Notes/Report: Thyroid Stimulating Hormone 0.77 0.32-4.0 uIU/mL TSH 3rd Generation ([facility]) Lipid Panel Reviewed date:08/02/2024 05:36:51 PM Interpretation: Performing Lab:[facility], [address] [place] [phone] Notes/Report: Triglycerides 95 <150 mg/dL Desirable Triglyceride: [...] with liver disease. Complete Blood Count Auto Larissa ff Reviewed date:12/07/2024 07:52:30 AM Interpretation: Performing Lab:[facility], [address] [place] [phone] Notes/Report: White Blood Count 6.1 4.8-10.8 X10*3/uL [...] Auto 0.000 0.0-0.012 X10*3/uL Prothrombin Time INR Reviewed date:12/07/2024 07:50:41 AM Interpretation: Performing Lab:[facility], [address] [place] [phone] Notes/Report: Prothrombin Time 13.8 10.9-12.4 SEC [employer]NATIONAL [...] valves: 2.5 - 3.5 Comprehensive Met. Panel Reviewed date:12/07/2024 12:22:37 PM Interpretation: Performing Lab:[address] [phone] Notes/Report: Sodium 136 135-145 mmol/L Potassium 4.0 [...] g/dL Alkaline Phosphatase 70 39-117 U/L Magnesium Reviewed date:12/07/2024 07:50:22 AM Interpretation: Performing Lab:[facility], [address] [place] [phone] Notes/Report: Magnesium 1.7 1.6-2.6 mg/dL Troponin-I High Sensitivity Reviewed date:12/07/2024 12:22:08 PM Interpretation: Performing Lab:[facility], [address] [place] [phone] Notes/Report: Troponin-I High Sensitivity 63.2 <3.5-35.0 ng/L The [place] high sensitivity Troponin-I results should be used in conjunction with other diagnostic information such as ECG, clinical observations and information, and patient symptoms to aid in the diagnosis of [place]. COVID-19 ID NOW ([facility]) Reviewed date:12/07/2024 07:49:00 AM Interpretation: Performing Lab:[facility], [address] [place] [phone] Notes/Report: [facility]NOW Serial# [id number] COVID-19 Test Positive Negative COVID-19 Note See [...] with other viruses. Testing facilities within the [facility] and its territories are required to report [...] on the [place] ID NOW utilizing NAAT. UA ClnCatch+Micro w/rflx Cul t Reviewed date:12/07/2024 12:34:25 PM Interpretation: Performing Lab:[facility], [address] [place] [phone] Notes/Report: Urine, Clean Catch Color Urine Yellow Appearance Urine Clear PH 6.0 5.0-9.0 Glucose Urine UA >=1000 Negative mg/dL Urine Blood Negative Negative Specific Carbon - Urine 1.020 1.005-1.025 Urine Protein Negative Neg-Trace mg/dL Urine Ketones Negative Negative mg/dL Nitrite Urine Negative Negative Leukocyte Esterase Urine Negative Negative RBC Urine 0-2 0-2 /HPF WBC Urine 0-5 0-5 /HPF Squamous Epithelial Cell Urine 0-2 0-2 /HPF Bacteria Urine None Seen None Seen Hyaline Casts Urine 0-2 0-2 /LPF Venous Blood Gases - POC Reviewed date:12/07/2024 07:49:18 AM Interpretation: Performing Lab:[facility], [address] [place] [phone] Notes/Report: VBG pH 7.42 7.32-7.43 METER #: [id number] additional_comment: Cb ribl VBG pCO2 34 METER #: [id number] additional_comment: Cb ribl VBG pO2 49 METER #: [id number] additional_comment: Cb ribl VBG Base Excess -0.9 METER #: [id number] additional_comment: Cb ribl VBG HCO3 22 22-26 mmol/L METER #: [id number] additional_comment: Cb ribl VBG O2 % Saturation 77.0 METER #: [id number] additional_comment: Cb ribl Influenza A B2 ID NOW (Abbot [facility]) Reviewed date:12/07/2024 12:22:18 PM Interpretation: Performing Lab:[facility], [address] [place] [phone] Notes/Report: [facility] Serial# [id number] Influenza A Negative Negative Influenza B2 Negative [...] with Respiratory Syncytial Virus. XR chest 2V Reviewed date:12/07/2024 07:50:14 AM Interpretation: Performing Lab: Notes/Report: [address] [address] XRay Report Signed Patient: Madan Oliveira MR#: [id number] : 1945 Acct:[id number] Age/Sex: 79 / M ADM Date: 12/06/24 Loc: .ED Attending Dr: Ordering Physician: Ashley Pierce Date of Service: 12/06/24 Procedure(s): XR chest 2V Accession Number(s): [id number] cc: Maykel Levin MD; Ashley Pierce Reason [...] signed by Hannah Mazariegos MD in OV> 12/07/24155 DD/ 05 TD/TT: 12/06/242105 Health Program Director: [address] [address] XRay Report Signed Patient: Madan Oliveira MR#: [id number] : 1945 Acct:[id number] Age/Sex: 79 / M ADM Date: 12/06/24 Loc: .ED Attending Dr: Ordering Physician: Ashley Pierce Date of Service: 12/06/24 Procedure(s): XR albert st 2V Accession Number(s): [id number] cc: Maykel Levin MD; Ashley Pierce Reason [...] signed by Hannah Mazariegos MD in OV> 12/07/246 DD/ 05 TD/TT: 12/06/242105 Health Program Director: Reason For Referral No Information Medications Medication [...] 1 tablet Orally Once a day Active Tamsulosin HCl 0.4 MG TAKE 1 CAPSULE BY MOUTH EVERY DAY for 90 Active Immunizations Vaccine Route Administration Date Status [...] W/U Status Risk Notes Problem Erectile dysfunction (525606419) Erectile Dysfunction (607.84) Active confirmed Problem 20940674 Prostatism (N40.0) Active confirmed Problem 46574658 Hypercalcemia (E83.52) Active confirme d Problem 363120562 Chronic atrial fibrillation (I48.2) Active confirmed Problem Acute on chronic diastolic heart failure (896194893) Acute on chronic diastolic (congestive) heart failure (I50.33) Active confirmed Problem Ascites (108452871) Other ascites (R18.8) Active confirmed Problem 5415230 Diastolic dysfun ction (I51.9) Active confirmed Problem 594940755 Tubular adenoma of colon (D12.6) Active confirmed Problem 02047275 Essential hypert ension (I10) Active confirmed Problem 216430183 Acquired hypothy roidism (E03.9) Active confirmed Problem 22672657 Monocytosis (D72.821) Active confirmed Problem 354703631 Chronic a-fib (I48.2) Active confirme d Problem Acute diastolic heart failure (692065913) Acute diastolic congestive heart failure (I50.31) Active confirmed Problem 572105251 Pure hypercholesterolemia (E78.00) Active confirmed Problem Acute asthma (595188151) Acute asthma (J45.909) Active confirmed Problem 067170946 BMI 30.0-30.9,ad ult (Z68.30) Active confirmed Problem Tomography - chest abnormal (779176929) Abnormal CT scan, chest (R93.89) Active confirmed Problem 254461705 Chronic atrial fibrillation, unspecified (I48.20) Active confirmed Problem 638964020 Chronic atrial fibrillation (I48.20) Active confirmed Vital [...] Maykel Levin MD [address] [place] [id number] 02/08/2024 Maykel Levin Essential hypertensi on I10 ; Encounter for general adult medical examination without abnormal findings Z00.00 ; Prostatism N40.0 ; Acute diastolic congestive heart failure I50.31 ; Acquired hypothyroidism E03.9 ; Pure hypercholesterolemia E78.00 and Chronic atrial fibrillation I48.20 Maykel Levin MD [address] [place] [id number] 08/07/2024 Maykel Levin Pure hypercholestero lemia E78.00 ; Onychomycosis B35.1 and Acute on chronic diastolic (congestive) heart failure I50.33 Maykel Levin MD [address] [place] [id number] 06/12/2024 Maykel Levin MD [address] [place] [id number] 12/08/2024 Maykel Levin Assessments Encounter Date Diagnosis (ICD [...] Onychomycosis (ICD-1 0 - B35.1) to see two way radio installer 02/08/2024 Prostatism (ICD-10 - N40.0) doing well. [...] Details Provider Name:Maykel stewart, 02/05/2025 07:15:00 AM, [address] [place] [address], [address], [place], [place], [phone], Provider Name:Maykel stewart, 02/12/2025 09:30:00 AM, [address] [place] [address], [address], [place], [place], [phone], Insurance Providers Payer Name Payer Address Payer Phone Subscriber Number Group Number Insured Name Patient Relationship to Insured Coverage Start Date Coverage End Date [employer] [address] [facility] [place] [phone] [id number] Madan Barrios Self - patient is the insured [facility] [address] [place] [address] [id number] Madan Barrios Self - patient is the insured Medical (General) History Medical History History ICD Code Colonoscopy 2006; colonoscop y and endoscopy done 01/15/2012; colonoscopy by Dr. Dickey 03/11/17 - no more indicated
== END 2025-01-29 12:56 | disposition home or self-care (01) ==
LOC: HO.HCS 12:10
PROVIDERS: PCP Internal Medicine; Visit Provider Internal Medicine Cardiovascular Disease
DX: I50.30 Unspecified diastolic (congestive) heart failure (principal); I48.20 Chronic atrial fibrillation, unspecified
CPT/HCPCS: 93010; 99214; G2211

== ENCOUNTER → 2025-01-29 12:09 | Outpatient (BNVA) | payer MEDICARE, SELFPAY | PROVIDERS: PCP Internal Medicine; Visit Provider Internal Medicine Cardiovascular Disease | DX: I48.20 Chronic atrial fibrillation, unspecified (principal); I11.0 Hypertensive heart disease with heart failure; I50.30 Unspecified diastolic (congestive) heart failure | CPT/HCPCS: 93005; 99212 ==

== ENCOUNTER 2025-02-07 08:52 | Outpatient (REF) | payer MEDICARE, SELFPAY ==
--- OUTSIDE RECORDS SUMMARY | 2023-08-11 11:12 | XMS_ITS ---
Author Organization Maykel Levin MD Address [address] [facility] [address] [place] [phone] Care Team Providers Care Soap Press Feeder Name Role Phone Maykel Levin Primary Care Provider REASON FOR VISIT discharge Encounters Encounter Location Date Provider Diagnosis Maykel Levin MD [address] [facility] [address] [place] [phone] 08/11/2023 Maykel Levin Plan Of Treatment Next Appt Details Provider Name:Maykel stewart, 02/12/2025 09:30:00 AM, [address] [place] [address], [address] [place] [address], [phone], Progress Notes * Madan OLIVEIRADOB :1945 (78 yo M)Acc No.[id number]:08/11/2023 Patient: Madan Butler :1945 A ge:78 Y S ex:Male Address:[address] [place] [phone] * true * Date: Generated for Wilmer salazar/Tequila/Brandyitting on: 04/09/2024 09:25 AM EST
--- OUTSIDE RECORDS SUMMARY | 2023-08-19 06:45 | XMS_ITS ---
Author Organization Maykel Levin MD Address [address] [place] [phone] Care Team Providers Care Medicine Worker Name Role Phone Maykel Levin Primary Care Provider [phone] Allergies No Known Allergies REASON FOR VISIT PH/TCM, No Covid symptoms Medications Medication SIG (Take, Route, Frequency, Duration) Notes Start Date End Date Status Cialis 20 MG 1 tablet Orally for 30 day(s) 12/25/2010 Not-Taking Clobetasol Propionate 0.05 % 1 application to affected area Externally Twice a day for 14 days 08/30/2012 Not-Taking Ventolin HFA * 108 (90 Base) MCG/ACT 2 puffs as needed Inhalation every 4 hrs for 30 day(s) 06/13/2015 Not-Taking Levoxyl 100 MCG TAKE 1 TABLET EVERY MORNING ON AN EMPTY STOMACH Active Tamsulosin HCl 0.4 MG TAKE 1 CAPSULE BY MOUTH EVERY DAY FOR 90 DAYS Active Cephalexin 500 MG 1 capsule Orally 3 times per day for 5 days 08/19/2023 Active Furosemide 40 MG alternating 40mg and 20mg Orally Active Terazosin HCl 5 MG 1 capsule at bedtime Orally Once a day Not-Taking dilTIAZem HCl 120 MG as directed Orally qd Active Atorvastatin Calcium 10 MG TAKE 1 TABLET 1 TIME DAILY Orally Once a day for 90 days Active Pradaxa 150 MG 1 capsule Orally Twi ce a day Active Xopenex HFA 45 MCG/ACT 1 puff as needed Inhalation every 6 hrs Not-Takin g Albuterol Sulfate HFA 108 (90 Base) MCG/ACT inhale 1 puff into the lungs every 4 hours for 30 days Inhalation every 4 hrs as needed for 30 days Active Latanoprost 0.005 % 1 drop into affected eye in the evening Ophthalmic Once a day Active Jardiance 10 MG 1 tablet Orally Once a day for 30 day(s) Active Omeprazole 20 MG 1 capsule 30 minutes before morning meal Orally Once a day for 30 day(s) Active Metoprolol Succinate ER 100 MG 1 tablet Orally Once a day for 30 day(s) Active Vital Signs Blood pressure systolic 110 mm Hg 08/19/19 24 Blood pressure diastolic 60 mm Hg 024 Height 66 in 08/19/2023 Weight 174 lbs 08/19/2023 BMI 28.08 kg/m2 08/19/2023 weight is down 7 pounds [facility] e 02-01-23 Encounters Encounter Location Date Provider Diagnosis Maykel Levin MD [address] [place] [address] [place] [phone] 08/19/2023 Maykel Levin Septicemia A41.9 Assessments Encounter Date Diagnosis (ICD Code) Assessment Notes Treatment Notes Treatment Clinical Notes Section Notes 08/19/2023 Septicemia (ICD-10 - A41.9) is doing well and recovered./ will have some antibiotic at home in case he gets dyuria order given to the patient, Total time spent on the date of the encounter is 35 minutes including both face to face time spent and time spent reviewing documentation, pertinent data, and counseling the patient. Plan Of Treatment Medication Medication Name Sig Start Date Stop Date Notes Cephalexin 500 MG 1 capsule Orally 3 t imes per day for 5 days 08/19/2023 Treatment Notes Assessment Notes Septicemia is doing well and re covered./ will have some antibiotic at home in case he gets dyuria order given to the patient, Total time spent on the date of the encounter is 35 minutes including both face to face time spent and time spent reviewing documentation, pertinent data, and counseling the patient. Next Appt Details Provider Name:Maykel Jason ier, 02/12/2025 09:30:00 AM, [address] [place] [address], [address], [phone], Progress Notes * Madan OLIVEIRADOB :1945 (78 yo M)Acc No.[id number]:08/19/2023 Patient: Lucy Madan faust Provider: Marilee Levin MD :1945 A ge:78 Y S ex:Male Date:08/19/2023 Address:[address] [place], [place] [phone] Subjective: * Chief Complaints: * P H/TCMNo Covid symptoms * HPI: S ymptom(s): patient is a 78 yo male here for transitional care management visit, discharge summary has been reviewed and medications reconcilled, had been admitted to hospital for sepsis. does have a lttle difficulty with urinary hesitancy and stream. * ROS: G eneral/Constitutional: Denies C hills. D enies F atigue. D enies F ever. D enies H eadache. E NT: Patient denies d ecreased sense of smell , any loss of taste , sore throat. D enies S ore throat. R espiratory: Denies C ough. D enies S hortness of breath at rest. D enies S hortness of breath with exertion. C ardiovascular: Denies C hest pain at rest. D enies C hest pain with exertion. D enies D izziness. D enies P alpitations. G astrointestinal: Denies D iarrhea. D enies N ausea. M usculoskeletal: Patient denies m uscle aches. P eripheral Vascular: Patient denies r ed and blue toes. * Medical History: * Surgical History: * Hospitalization/Major Diagno stic Procedure: * Medications: T akingMetoprolol Succinate ER 100 MG Tablet Extended Release 24 Hour 1 tablet Orally Once a dayOmeprazole 20 MG Capsule Delayed Release 1 capsule 30 minutes before morning meal Orally Once a dayJardiance 10 MG Tablet 1 tablet Orally Once a dayLatanoprost 0.005 % Solution 1 drop into affected eye in the evening Ophthalmic Once a dayAlbuterol Sulfate HFA 108 (90 Base) MCG/ACT Aerosol Solution inhale 1 puff into the lungs every 4 hours for 30 days Inhalation every 4 hrs as neededPradaxa 150 MG Capsule 1 capsule Orally Twice a dayAtorvastatin Calcium 10 MG Tablet TAKE 1 TABLET 1 TIME DAILY Orally Once a daydilTIAZem HCl 120 MG Tablet as directed Orally qdFurosemide 40 MG Tablet alternating 40mg and 20mg Orally Tamsulosin HCl 0.4 MG Capsule TAKE 1 CAPSULE BY MOUTH EVERY DAY FOR 90 DAYS Levoxyl 100 MCG Tablet TAKE 1 TABLET EVERY MORNING ON AN EMPTY STOMACH Taking Metoprolol Succinate ER 100 MG Tablet Extended Release 24 Hour 1 tablet Orally Once a dayTaking Omeprazole 20 MG Capsule Delayed Release 1 capsule 30 minutes before morning meal Orally Once a dayTaking Jardiance 10 MG Tablet 1 tablet Orally Once a dayTaking Latanoprost 0.005 % Solution 1 drop into affected eye in the evening Ophthalmic Once a dayTaking Albuterol Sulfate HFA 108 (90 Base) MCG/ACT Aerosol Solution inhale 1 puff into the lungs every 4 hours for 30 days Inhalation every 4 hrs as neededTaking Pradaxa 150 MG Capsule 1 capsule Orally Twice a dayTaking Atorvastatin Calcium 10 MG Tablet TAKE 1 TABLET 1 TIME DAILY Orally Once a dayTaking dilTIAZem HCl 120 MG Tablet as directed Orally qdTaking Furosemide 40 MG Tablet alternating 40mg and 20mg Orally Taking Tamsulosin HCl 0.4 MG Capsule TAKE 1 CAPSULE BY MOUTH EVERY DAY FOR 90 DAYS Taking Levoxyl 100 MCG Tablet TAKE 1 TABLET EVERY MORNING ON AN EMPTY STOMACH Not-Taking/PRNXopenex HFA 45 MCG/ACT Aerosol 1 puff as needed Inhalation every 6 hrsTerazosin HCl 5 MG Capsule 1 capsule at bedtime Orally Once a dayVentolin HFA * 108 (90 Base) MCG/ACT Aerosol Solution 2 puffs as needed Inhalation every 4 hrsClobetasol Propionate 0.05 % Cream 1 application to affected area Externally Twice a dayCialis 20 MG Tablet 1 tablet Orally Medication List reviewed and reconciled with the patientNot-Taking/PRN Xopenex HFA 45 MCG/ACT Aerosol 1 puff as needed Inhalation every 6 hrsNot-Taking/PRN Terazosin HCl 5 MG Capsule 1 capsule at bedtime Orally Once a dayNot-Taking/PRN Ventolin HFA * 108 (90 Base) MCG/ACT Aerosol Solution 2 puffs as needed Inhalation every 4 hrsNot-Taking/PRN Clobetasol Propionate 0.05 % Cream 1 application to affected area Externally Twice a dayNot-Taking/PRN Cialis 20 MG Tablet 1 tablet Orally Medication List reviewed and reconciled with the patient * Allergies: N .K.D.A.yes[Allergies Verified] Objective: * Vitals: H t: 66, Wt:174, BMI:28.08, BP:110/60 weight is down 7 pounds since 02-01-23. * Examination: G eneral Examination: GENERAL APPEARANCE: alert, well hydrated, in no distress . SKIN: good turgor. HEART: regular rate and rhythm no murmurs, rubs, gallops.? LUNGS: no wheezes, rales, rhonchi good air movement clear to auscultation bilaterally. BACK: no costovertebral angle tenderness. ? Assessment: * Assessment: 1. S epticemia - A41.9 (Primary) Plan: * Treatment: * Procedure Codes: * * Sign off status: Completed true * Provider: Marilee Levin MD Date: 0 08/19/2023 Generated for Wilmer salazar/Tequila/Brandyitting on: 04/09/2024 09:25 AM EST History and Physical Notes * HPI (History of Present Illness) Category Sub-Category Detail Notes Category Not es Symptom(s) patient is a 78 yo male here for transitional care management visit, discharge summary has been reviewed and medications reconcilled, had been admitted to hospital for sepsis. does have a lttle difficulty with urinary hesitancy and stream Examination Category Sub-Category Detail Notes Category Not es General Examination GENERAL APPEARANCE: alert, w ell hydrated, in no distress HEART: regular rate and rhy thm no murmurs, rubs, gallops LUNGS: no wheezes, rales, r hon[place] good air movement clear to auscultation bilaterally SKIN: good turgor BACK: no costovertebral an gle tenderness
--- OUTSIDE RECORDS SUMMARY | 2023-11-19 08:52 | XMS_ITS ---
Author Organization Maykel Levin MD Address [address] [place] [phone] Care Team Providers Care Line Mover Name Role Phone Maykel Levin Primary Care Provider REASON FOR VISIT REFILL ALBUTEROL Medications Medication SIG (Take, Route, Frequency, Duration) Notes Start Date End Date Status Albuterol Sulfate HFA 108 (90 Base) MCG/ACT inhale 1 puff into the lungs every 4 hours for 30 days Inhalation every 4 hrs for 90 days Active Encounters Encounter Location Date Provider Diagnosis Maykel Levin MD [address] [place] [phone] 11/19/2023 Maykel Levin Acute asthma J45.909 Assessments [...] days Next Appt Details Provider Name:Maykel Jason ier, 02/12/2025 09:30:00 AM, [address] [place] [address], [address], [phone], Progress Notes * Madan OLIVEIRADOB :1945 (78 yo M)Acc No.[id number]:11/19/2023 Patient: Lucy Madan faust :1945 A ge:78 Y S ex:Male Address:[address] [place] [id number] * Refills Refill Albuterol Sulfate HFA Aerosol Solution, 108 (90 Base) MCG/ACT, Inhalation, 3, inhale 1 puff into the lungs every 4 hours for 30 days, every 4 hrs, 90 days, Refills=3 * true * Date: Generated for Wilmer salazar/Tequila/Mickeysmitting on: 04/09/2024 09:26 AM EST
--- OUTSIDE RECORDS SUMMARY | 2024-02-01 04:15 | XMS_ITS ---
Author Organization Maykel Levin MD Address [address] [place] [phone] Care Team Providers Care Digital Librarian Name Role Phone Maykel Levin Primary Care Provider Results Component Value Reference Range Notes Complete Blood Count Auto Di ff Reviewed date:02/02/2024 12:17:54 PM Interpretation: Performing Lab:[facility], [address] [place] [phone] Notes/Report: White Blood Count 5.2 4.8-10.8 X10*3/uL Red Blood Count 4.97 4.60-5.80 X10*6/uL Hemoglobin 15.9 14.0-18.0 g/dl Hematocrit 47.5 42.0-52.0 % Mean Corpuscular Volume 95.6 80.0-98.0 fL Mean Corpuscular Hemoglobin 32.0 27.0-33.0 pg Mean Corpuscular HGB Conc 33.5 31.0-36.0 g/dl Red Cell Distribution Width 14.1 11.0-16.0 % Platelet Count 149 160-400 X10*3/uL Mean Platelet Volume 10.9 9.4-12.4 fL Neutrophils Percent Auto 63.5 45-73 % Imm Gran Pct Auto 0.4 0.0-0.4 % Lymphocytes Percent Auto 15.8 20-40 % Monocytes Percent Auto 15.3 2-11 % Eosinophils Percent Auto 4.4 0-4 % Basophils Percent Auto 0.6 0-2 % NRBC Pct Auto 0.0 0.0-0.2 /100WBC Neutrophils Absolute Auto 3.3 2.0-8.3 x10*3/u L Imm Gran Abs Auto 0.02 0.00-0.03 X10*3/uL Lymphocytes Absolute Auto 0.8 1.2-4.9 X10*3/u L Monocytes Absolute Auto 0.8 0.1-1.2 X10*3/uL Eosinophils Absolute Auto 0.2 0.0-0.4 X10*3/u L Basophils Absolute Auto 0.0 0.0-0.2 X10*3/uL NRBC Abs Auto 0.000 0.0-0.012 X10*3/uL Comprehensive Newcomb. Panel Fa st Reviewed date:02/03/2024 12:34:47 PM Interpretation: Performing Lab:[facility], [address] [place] [phone] Notes/Report: Sodium 139 135-145 mmol/L Potassium 4.3 3.3-5.1 mmol/L Chloride 105 96-108 mmol/L Carbon Dioxide 25 22-29 mmol/L Anion Gap 13 12-20 Blood Urea Nitrogen 14 9-16 mg/dL Creatinine 1.18 0.5-1.4 mg/dL Estimated Glomerular Filt Rate 60 NOTE: For -[place] individuals, multiply the result by 1.210. Chronic Kidney Disease: Estimated GFR < 60 mL/min/1.73m2 Severe Kidney Disease: Estimated GFR < 15 mL/min/1.73m2 Glucose Fasting 104 60-99 mg/dL A fasting glucose from 100-125 mg/dl is considered impaired (pre-diabetes). Calcium 9.7 8.4-10.2 mg/dL Bilirubin Total 1.5 0.0-1.0 mg/dL Slight Icte morena. Aspartate Amino Transferase 25 5-37 U/L Alanine Aminotransferase 18 0-40 U/L Total Protein 6.7 6.5-8.0 g/dL Albumin Level 4.0 3.5-5.0 g/dL Alkaline Phosphatase 66 39-117 U/L Lipid Panel Reviewed date:02/03/2024 12:34:56 PM Interpretation: Performing Lab:[address] [phone] Notes/Report: Triglycerides 77 <150 mg/dL Desirable Triglyceride: less than 150 mg/dL Borderline High Triglyceride 150-199 mg/dL High Triglyceride: 200-499 mg/dL Very High Triglyceride: greater than or equal to 5OO mg/dL Cholesterol 162 <200 mg/dL Desirable Cholesterol: less than 200 mg/dL Borderline High Cholesterol: 200-239 mg/dL High Cholesterol: greater than 239 mg/dL LDL Cholesterol Calculated 89 <100 mg/dL Desirable LDL: less than 100 mg/dL Near Optimal/Above Optimal LDL: 110-129 mg/dL Borderline High LDL: 130-159 mg/dL High LDL: 160-189 mg/dL Very High LDL: greater than or equal to 190 mg/dL HDL Cholesterol 58 >40 mg/dL Desirable HDL: greater than 40 mg/dL Note: This HDL assay may give artificially low results in patients with liver disease. PSA,Total (Free>4and<10) Reviewed date:02/02/2024 12:29:44 PM Interpretation: Performing Lab:[address] [phone] Notes/Report: PSA,Total (Free>4and<10) 3.22 0.00-4.00 ng/mL A Free PSA was not performed: The percentage of Free PSA can be used to enhance the differentiation of prostate cancer from benign prostatic disease in subjects whose PSA levels are between 4.0 and 10.0 ng/mL. For subjects whose PSA levels are below 4.0 or above 10.0 ng/mL, the risk of prostate cancer is determined on the basis of the PSA alone. Therefore the % Free PSA is recommended only for those subjects whose PSA levels are between 4.0 and 10.0 ng/mL. PSA methodology: [place] Alinity i Chemiluminescent Microparticle Immunoassay (CMIA) UA ClnCatch+Micro w/rflx Cul t Reviewed date:02/02/2024 12:15:10 PM Interpretation: Performing Lab:[facility], [address] [place] [phone] Notes/Report: [id number] Urine, Clean Catch Color Urine Yellow Appearance Urine Clear PH 6.0 5.0-9.0 Glucose Urine UA >=1000 Negative mg/dL Urine Blood Negative Negative Specific Odum - Urine 1.015 1.005-1.025 Urine Protein Negative Neg-Trace mg/dL Urine Ketones Negative Negative mg/dL Nitrite Urine Negative Negative Leukocyte Esterase Urine Negative Negative RBC Urine 0-2 0-2 /HPF WBC Urine 0-5 0-5 /HPF Squamous Epithelial Cell Urine 0-2 0-2 /HPF Bacteria Urine None Seen None Seen Hyaline Casts Urine 0-2 0-2 /LPF REASON FOR VISIT FASTING LABS Encounters Encounter Location Date Provider Diagnosis Maykel Levni MD [address] [facility] [address] [place] [phone] 02/01/2024 Maykel Levin Blood tests for routine general physical examination Z00.00 ; Acquired hypothyroidism E03.9 ; Essential hypertension I10 ; Hypercalcemia E83.52 ; Prostatism N40.0 and Acute diastolic congestive heart failure I50.31 Assessments Encounter Date Diagnosis (ICD Code) Assessment Notes Treatment Notes Treatment Clinical Notes Section Notes 02/01/2024 Blood tests for routine general physical examination (ICD-10 - Z00.00) 02/01/2024 Acquired hypothyroidism (ICD-10 - E03.9) 02/01/2024 Essential hypertension (ICD-10 - I10) 02/01/2024 Hypercalcemia (ICD-10 - E83.52) 02/01/2024 Prostatism (ICD-10 - N40.0) 02/01/2024 Acute diastolic congestive heart failure (ICD-10 - I50.31) Plan Of Treatment Next Appt Details Provider Name:Maykel stewart, 02/12/2025 09:30:00 AM, [address] [facility], [address], [place], [place], [phone], Progress Notes * Madan OLIVEIRAB :1945 (80 yo M)Acc No.[id number]:02/01/2024 Progress Note Patient: Madan CLAIRE Provider: Marilee Levin MD :1945 A ge:79 Y S ex:Male Date:02/01/2024 Address:[address] [place], [place] [phone] Subjective: * Chief Complaints: * 1 . FASTING LABS. * Medical History: Objective: * Vitals: Assessment: * Assessment: 1. B lood tests for routine general physical examination - Z00.00 (Primary) 2 .?Acquired hypothyroidism - E03.9 3 . E ssential hypertension - I10 ? 4 . H ypercalcemia - E83.52 5 . P rostatism - N40.0 6 . A cute diastolic congestive heart failure - I50.31 Plan: * Treatment: 2. A cquired hypothyroidism L AB: TSH reflex Free T4 (Order Cancelled) L AB: Complete Blood Count Auto Diff (Collection Date & Time - 02/02/2024 08:45 AM) L AB: Comprehensive Newcomb. Panel Fast (Collection Date & Time - 02/02/2024 08:45 AM) L AB: Lipid Panel (Collection Date & Time - 02/02/2024 08:45 AM) L AB: PSA,Total (Free>4and<10) (Collection Date & Time - 02/02/2024 08:45 AM) L AB: UA ClnCatch+Micro w/rflx Cult (Collection Date & Time - 02/02/2024 08:51 AM) 3. E ssential hypertension L AB: TSH reflex Free T4 (Order Cancelled) L AB: Complete Blood Count Auto Diff (Collection Date & Time - 02/02/2024 08:45 AM) L AB: Comprehensive Newcomb. Panel Fast (Collection Date & Time - 02/02/2024 08:45 AM) L AB: Lipid Panel (Collection Date & Time - 02/02/2024 08:45 AM) L AB: PSA,Total (Free>4and<10) (Collection Date & Time - 02/02/2024 08:45 AM) L AB: UA ClnCatch+Micro w/rflx Cult (Collection Date & Time - 02/02/2024 08:51 AM) 4. H ypercalcemia L AB: TSH reflex Free T4 (Order Cancelled) L AB: Complete Blood Count Auto Diff (Collection Date & Time - 02/02/2024 08:45 AM) L AB: Comprehensive Newcomb. Panel Fast (Collection Date & Time - 02/02/2024 08:45 AM) L AB: Lipid Panel (Collection Date & Time - 02/02/2024 08:45 AM) L AB: PSA,Total (Free>4and<10) (Collection Date & Time - 02/02/2024 08:45 AM) L AB: UA ClnCatch+Micro w/rflx Cult (Collection Date & Time - 02/02/2024 08:51 AM) 5. P rostatism L AB: TSH reflex Free T4 (Order Cancelled) L AB: Complete Blood Count Auto Diff (Collection Date & Time - 02/02/2024 08:45 AM) L AB: Comprehensive Newcomb. Panel Fast (Collection Date & Time - 02/02/2024 08:45 AM) L AB: Lipid Panel (Collection Date & Time - 02/02/2024 08:45 AM) L AB: PSA,Total (Free>4and<10) (Collection Date & Time - 02/02/2024 08:45 AM) L AB: UA ClnCatch+Micro w/rflx Cult (Collection Date & Time - 02/02/2024 08:51 AM) 6. A cute diastolic congestive heart failure L AB: TSH reflex Free T4 (Order Cancelled) L AB: Complete Blood Count Auto Diff (Collection Date & Time - 02/02/2024 08:45 AM) L AB: Comprehensive Newcomb. Panel Fast (Collection Date & Time - 02/02/2024 08:45 AM) L AB: Lipid Panel (Collection Date & Time - 02/02/2024 08:45 AM) L AB: PSA,Total (Free>4and<10) (Collection Date & Time - 02/02/2024 08:45 AM) L AB: UA ClnCatch+Micro w/rflx Cult (Collection Date & Time - 02/02/2024 08:51 AM) * * The named appointment provid er may or may not be the originator of this progress note, and it is not deemed complete until electronically signed by the appointment provider. Sign off status: Pending * Provider: Marilee Levin MD Date: 04/02/2023 Generated for Wilmer salazar/Tequila/Griselda on: 04/09/2024 09:26 AM EST
--- OUTSIDE RECORDS SUMMARY | 2024-02-08 04:30 | XMS_ITS ---
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 Tender Name Role Phone Maykel Levin Primary Care Provider [phone] Allergies No Known Allergies REASON FOR VISIT ANNUAL EXAM Medications Medication SIG (Take, Route, Frequency, Duration) Notes Start Date End Date Status Finasteride 5 MG 1 tablet Orally Once a day for 30 day(s) Active Tamsulosin HCl 0.4 MG TAKE 1 CAPSULE BY MOUTH EVERY DAY Active Furosemide 40 MG alternating 40mg and 20mg Orally Active Levoxyl 100 MCG take 1 tablet every morning on an empty stomach Orally Once a day for 90 days Active Cialis 20 MG 1 tablet Orally for 30 day(s) 12/25/2010 Not-Taking dilTIAZem HCl 120 MG as directed Orally qd Active Atorvastatin Calcium 10 MG TAKE 1 TABLET 1 TIME DAILY Orally Once a day Active Ventolin HFA * 108 (90 Base) MCG/ACT 2 puffs as needed Inhalation every 4 hrs for 30 day(s) 06/13/2015 Not-Taking Pradaxa 150 MG 1 capsule Orally Twi ce a day Active Clobetasol Propionate 0.05 % 1 application to affected area Externally Twice a day for 14 days 08/30/2012 Not-Taking Xopenex HFA 45 MCG/ACT 1 puff as needed Inhalation every 6 hrs Not-Takin g Terazosin HCl 5 MG 1 capsule at bedtime Orally Once a day Not-Taking Metoprolol Succinate ER 100 MG 1 tablet Orally Once a day Active Albuterol Sulfate HFA 108 (90 Base) MCG/ACT inhale 1 puff into the lungs every 4 hours for 30 days Inhalation every 4 hrs for 90 days Active Latanoprost 0.005 % 1 drop into affected eye in the evening Ophthalmic Once a day Active Jardiance 10 MG 1 tablet Orally Once a day for 30 day(s) Active Omeprazole 20 MG 1 capsule 30 minutes before morning meal Orally Once a day for 30 day(s) Active Social History Tobacco Use: Social History Observation Description Date Details (start date - stop date) Former Smoker NA - NA Tobacco Use/Smoking Question Answer Notes Patient is a former smoker Additional Findings: Tobacco Non-User Fo rmer smoker, currently using no form of tobacco Alcohol Screen Question Answer Notes Did you have a drink contain ing alcohol in the past year? Yes How often did you have a dri nk containing alcohol in the past year? Monthly or less (1 point) How many drinks did you have on a typical day when you were drinking in the past year? 1 or 2 drinks (0 point) How often did you have 6 or more drinks on one occasion in the past year? Never (0 point) Points 1 Interpretation Negative Section Notes: 08-21-11 Patient states smoke s an occasional cigar. Vital Signs Blood pressure systolic 114 mm Hg 02/08/20 24 Blood pressure diastolic 86 mm Hg 024 Height 66 in 02/08/2024 Weight 182 lbs 02/08/2024 BMI 29.37 kg/m2 02/08/2024 weight is up 8 pounds since 08-19-23 Encounters Encounter Location Date Provider Diagnosis Maykel Levin MD [address] [place] [address] [address] [place], [place] [phone] 02/08/2024 Maykel Levin Essential hypertensi on I10 ; Encounter for general adult medical examination without abnormal findings Z00.00 ; Prostatism N40.0 ; Acute diastolic congestive heart failure I50.31 ; Acquired hypothyroidism E03.9 ; Pure hypercholesterolemia E78.00 and Chronic atrial fibrillation I48.20 Assessments Encounter Date Diagnosis (ICD Code) Assessment Notes Treatment Notes Treatment Clinical Notes Section Notes 02/08/2024 Essential hypertensi on (ICD-10 - I10) well controlled, will continue current regiment 02/08/2024 Encounter for genera l adult medical examination without abnormal findings (ICD-10 - Z00.00) Labs reviewed and discussed with patient 02/08/2024 Prostatism (ICD-10 - N40.0) doing well. being followed by urology, will contnue current regiment 02/08/2024 Acute diastolic congestive heart failure (ICD-10 - I50.31) doing well on meds. will continue current regiment 02/08/2024 Acquired hypothyroid ism (ICD-10 - E03.9) stable, will continue current regiment 02/08/2024 Pure hypercholesterolemia (ICD-10 - E78.00) stable, will continue current regiment 02/08/2024 Chronic atrial fibrillation (ICD-10 - I48.20) Plan Of Treatment Medication Medication Name Sig Start Date Stop Date Notes Tamsulosin HCl 0.4 MG TAKE 1 CAPSULE BY MOUTH EVERY DAY Furosemide 40 MG alternating 40mg and 20mg Orally Levoxyl 100 MCG take 1 tablet every morning on an empty stomach Orally Once a day for 90 days dilTIAZem HCl 120 MG as directed Orally qd Atorvastatin Calcium 10 MG TAKE 1 TABLET 1 TIME DAILY Orally Once a day Pradaxa 150 MG 1 capsule Orally Twice a day Metoprolol Succinate ER 100 MG 1 tablet Orally Once a day Treatment Notes Assessment Notes Essential hypertension well controlled, will continue current regiment Encounter for general adult medical examination without abnormal findings Labs reviewed and discussed with patient Prostatism doing well. being fo llowed by urology, will contnue current regiment Acute diastolic congestive heart failure doing well on meds. will continue current regiment Acquired hypothyroidism stable, will con tinue current regiment Pure hypercholesterolemia stable, will c ontinue current regiment Next Appt Details Follow Up: 6 Months, Reason: Provider Name:Maykel stewart, 02/12/2025 09:30:00 AM, [address] [place] [address], [address], [place], [place], [phone], Progress Notes * Madan OLIVEIRADOB :1945 (79 yo M)Acc No.[id number]:02/08/2024 Progress Notes Patient: Madan Butler Provider: Marilee Levin MD :1945 A ge:79 Y S ex:Male Date:02/08/2024 Address:[address] [place], [place] [phone] Subjective: * Chief Complaints: * A NNUAL EXAM * HPI: D epression Screening: PHQ-9 L ittle interest or pleasure in doing things N ot at all, F eeling down, depressed, or hopeless N ot at all, T rouble falling or staying asleep, or sleeping too much N ot at all, F eeling tired or having little energy N ot at all, P oor appetite or overeating N ot at all, F eeling bad about yourself or that you are a failure, or have let yourself or your family down N ot at all, T rouble concentrating on things, such as reading the newspaper or watching television N ot at all, M oving or speaking so slowly that other people could have noticed; or the opposite, being so fidgety or restless that you have been moving around a lot more than usual N ot at all, T houghts that you would be better off or of hurting yourself in some way N ot at all, T otal Score 0 . I nterpretation and Intervention D epression Screening Findings N egative, F ollow-Up for Depression : review of PHQ-9 found negative result, no follow-up needed. C ommunication Needs: Communication Needs D oes the patient have a hearing impairment N o, D oes the patient have a vision impairment? Y es, I f yes, what is the vision impairment? G lasses, D oes the patient have a cognition impairment? N o. F all Risk: History H ave you had any falls with injury in the past year? N o, H ave you had two or more falls in the past year? N o. S DOV Questions: SDOH Questions I n the past year have you been worried about losing housing? N o, I n the past year have you or any family members you live with been unable to get any of the following when it was really needed? Check all that apply: N one. S ymptom(s): patient is a 79 yo male here for yearly evaluation with review of recent labs and follow up of chronic issues. * ROS: G eneral/Constitutional: Patient denies f atigue , headache. C hange in appetite?denies. C hills d enies. F ever d enies. O phthalmologic: Blurred vision d enies. D ischarge d enies. P ain d enies. E NT: Patient denies d ecreased sense of smell , any loss of taste , sore throat. D ecreased hearing d enies. S ore throat d enies. S wollen glands d enies. E ndocrine: Cold intolerance d enies. E xcessive thirst d enies. H eat intolerance d enies. W eight loss d enies. R espiratory: Cough d enies. S hortness of breath at rest d enies. S hortness of breath with exertion d enies. W heezing d enies. C ardiovascular: Chest pain at rest d enies. C hest pain with exertion?denies. I rregular heartbeat d enies. S hortness of breath d enies. ? G astrointestinal: Abdominal pain d enies. C hange in bowel habits d enies. D iarrhea d enies. N ausea d enies. R ectal bleeding d enies. V omiting d enies . G enitourinary: Blood in urine d enies. D ifficulty urinating d enies. F requent urination d enies. M usculoskeletal: Patient denies m uscle aches. P ainful joints d enies. W eakness d enies. P eripheral Vascular: Patient denies r ed and blue toes. S kin: Dry skin d enies. I tching d enies. D enies?Mole(s), changes in moles, new moles or any lesions of concern. D enies P hotosensitivity. R vicki d enies. N eurologic: Dizziness d enies. F ainting d enies. H eadache?denies. * Medical History: * Surgical History: * Hospitalization/Major Diagno stic Procedure: * Family History: F ather: 87 yrs, family history unknown . M other: 65 yrs, family history unknown . 1 son(s) , 1 daughter(s) - healthy. . 1 brother father - ? Mother- ?, Denies mental health/substance abuse family history, Denies mental health/substance abuse family history, No pertinent family medical history. * Social History: T obacco Use: T obacco Use/Smoking P atient is a f ormer smoker, A dditional Findings: Tobacco Non-User F ormer smoker, currently using no form of tobacco. D rugs/Alcohol: A lcohol Screen D id you have a drink containing alcohol in the past year? Y es, H ow often did you have a drink containing alcohol in the past year? M onthly or less (1 point), H ow many drinks did you have on a typical day when you were drinking in the past year? 1 or 2 drinks (0 point), H ow often did you have 6 or more drinks on one occasion in the past year? N ever (0 point), P oints 1 , I nterpretation N egative. M iscellaneous: C affeine: yes, frequency:, 1-2 cups per day. Children: yes. no Community involvements. Exercise: yes, weights and rowing machine. Home smoke detector use: yes. Housing: owning. Living with: spouse. Marital status: . Occupation: works part- time. Pets: none. Travel outside of the [place]: yes, [place]. Patient states smokes an occasional cigar. * Medications: T akingFinasteride 5 MG Tablet 1 tablet Orally Once a dayMetoprolol Succinate ER 100 MG Tablet Extended Release 24 Hour 1 tablet Orally Once a dayOmeprazole 20 MG Capsule Delayed Release 1 capsule 30 minutes before morning meal Orally Once a dayJardiance 10 MG Tablet 1 tablet Orally Once a dayLatanoprost 0.005 % Solution 1 drop into affected eye in the evening Ophthalmic Once a dayPradaxa 150 MG Capsule 1 capsule Orally Twice a dayAtorvastatin Calcium 10 MG Tablet TAKE 1 TABLET 1 TIME DAILY Orally Once a daydilTIAZem HCl 120 MG Tablet as directed Orally qdFurosemide 40 MG Tablet alternating 40mg and 20mg Orally Albuterol Sulfate HFA 108 (90 Base) MCG/ACT Aerosol Solution inhale 1 puff into the lungs every 4 hours for 30 days Inhalation every 4 hrsTamsulosin HCl 0.4 MG Capsule TAKE 1 CAPSULE BY MOUTH EVERY DAY Levoxyl 100 MCG Tablet TAKE 1 TABLET EVERY MORNING ON AN EMPTY STOMACH Taking Finasteride 5 MG Tablet 1 tablet Orally Once a dayTaking Metoprolol Succinate ER 100 MG Tablet Extended Release 24 Hour 1 tablet Orally Once a dayTaking Omeprazole 20 MG Capsule Delayed Release 1 capsule 30 minutes before morning meal Orally Once a dayTaking Jardiance 10 MG Tablet 1 tablet Orally Once a dayTaking Latanoprost 0.005 % Solution 1 drop into affected eye in the evening Ophthalmic Once a dayTaking Pradaxa 150 MG Capsule 1 capsule Orally Twice a dayTaking Atorvastatin Calcium 10 MG Tablet TAKE 1 TABLET 1 TIME DAILY Orally Once a dayTaking dilTIAZem HCl 120 MG Tablet as directed Orally qdTaking Furosemide 40 MG Tablet alternating 40mg and 20mg Orally Taking Albuterol Sulfate HFA 108 (90 Base) MCG/ACT Aerosol Solution inhale 1 puff into the lungs every 4 hours for 30 days Inhalation every 4 hrsTaking Tamsulosin HCl 0.4 MG Capsule TAKE 1 CAPSULE BY MOUTH EVERY DAY Taking Levoxyl 100 MCG Tablet TAKE 1 [...] Verified] Objective: * Vitals: H t: 66, Wt:182, BMI:29.37, BP:114/86 weight is up 8 pounds since 08-19-23. * P ast Orders: L ab:Complete Blood Count Auto Diff (Order Date - 02/01/2024) (Collection Date - 02/02/2024) Value Reference Range White Blood Count 5.2 4.8-10.8 - X10*3/uL Red Blood Count 4.97 4.60-5.80 - X10*6/uL Hemoglobin 15.9 14.0-18.0 - g/dl Hematocrit 47.5 42.0-52.0 - % Mean Corpuscular Volume 95.6 80.0-98.0 - fL Mean Corpuscular Hemoglobin 32.0 27.0-33.0 - pg Mean Corpuscular HGB Conc 33.5 31.0-36.0 - g/ dl Red Cell Distribution Width 14.1 11.0-16.0 - % Platelet Count 149 L 160-400 - X10*3/uL Mean Platelet Volume 10.9 9.4-12.4 - fL Neutrophils Percent Auto 63.5 45-73 - % Imm Gran Pct Auto 0.4 0.0-0.4 - % Lymphocytes Percent Auto 15.8 L 20-40 - % Monocytes Percent Auto 15.3 H 2-11 - % Eosinophils Percent Auto 4.4 H 0-4 - % Basophils Percent Auto 0.6 0-2 - % NRBC Pct Auto 0.0 0.0-0.2 - /100WBC Neutrophils Absolute Auto 3.3 2.0-8.3 - x10* 3/uL Imm Gran Abs Auto 0.02 0.00-0.03 - X10*3/uL Lymphocytes Absolute Auto 0.8 L 1.2-4.9 - X10* 3/uL Monocytes Absolute Auto 0.8 0.1-1.2 - X10*3/ uL Eosinophils Absolute Auto 0.2 0.0-0.4 - X10* 3/uL Basophils Absolute Auto 0.0 0.0-0.2 - X10*3/ uL NRBC Abs Auto 0.000 0.0-0.012 - X10*3/uL L ab:Comprehensive [place]. Panel Fast (Order Date - 02/01/2024) (Collection Date - 02/02/2024) Value Reference Range Sodium 139 135-145 - mmol/L Bilirubin Total 1.5 H 0.0-1.0 - mg/dL Aspartate Amino Transferase 25 5-37 - U/L Alanine Aminotransferase 18 0-40 - U/L Total Protein 6.7 6.5-8.0 - g/dL Albumin Level 4.0 3.5-5.0 - g/dL Alkaline Phosphatase 66 39-117 - U/L Potassium 4.3 3.3-5.1 - mmol/L Chloride 105 96-108 - mmol/L Carbon Dioxide 25 22-29 - mmol/L Anion Gap 13 12-20 - Blood Urea Nitrogen 14 9-16 - mg/dL Creatinine 1.18 0.5-1.4 - mg/dL Estimated Glomerular Filt Rate 60 - Glucose Fasting 104 H 60-99 - mg/dL Calcium 9.7 8.4-10.2 - mg/dL L ab:Lipid Panel (Order Date - 02/01/2024) (Collection Date - 02/02/2024) Value Reference Range Triglycerides 77 <150 - mg/dL Cholesterol 162 <200 - mg/dL LDL Cholesterol Calculated 89 <100 - mg/dL HDL Cholesterol 58 >40 - mg/dL L ab:PSA,Total (Free>4and<10) (Order Date - 02/01/2024) (Collection Date - 02/02/2024) Value Reference Range PSA,Total (Free>4and<10) 3.22 0.00-4.00 - ng/ mL L ab:UA ClnCatch+Micro w/rflx Cult (Order Date - 02/01/2024) (Collection Date - 02/02/2024) Value Reference Range Color Urine Yellow - Appearance Urine Clear - PH 6.0 5.0-9.0 - Glucose Urine UA >=1000 A Negative - mg/dL Urine Blood Negative Negative - Specific [place] - Urine 1.015 1.005-1.025 - Urine Protein Negative Neg-Trace - mg/dL Urine Ketones Negative Negative - mg/dL Nitrite Urine Negative Negative - Leukocyte Esterase Urine Negative Negative - RBC Urine 0-2 0-2 - /HPF WBC Urine 0-5 0-5 - /HPF Squamous Epithelial Cell Urine 0-2 0-2 - /HP F Bacteria Urine None Seen None Seen - Hyaline Casts Urine 0-2 0-2 - /LPF L ab:Thyroid Stimulating Hormone (Order Date - 02/02/2024) (Collection Date - 02/02/2024) Value Reference Range Thyroid Stimulating Hormone 0.77 0.32-4.0 - u IU/mL * Examination: G eneral Examination: GENERAL APPEARANCE: w ell developed, well nourished, in no acute distress. HEAD: n ormocephalic, atraumatic. EYES: p upils equal, round, reactive to light and accommodation, sclera non-icteric. EARS: n ormal. ORAL CAVITY: m ucosa moist. THROAT: c lear. NECK/THYROID: n eevtte supple, full range of motion, no cervical lymphadenopathy, no bruits. SKIN: w arm and dry, no suspicious lesions. HEART: r egular rate and rhythm, S1, S2 normal, no murmurs.? LUNGS: c lear to auscultation bilaterally. ABDOMEN: s oft, nontender, nondistended, bowel sounds present, normal, no organomegaly , no masses palpable. RECTAL EXAM: n ormal tone, no external hemorrhoids, no masses palpable, prostate normal, stool guaiac negative. MALE GENITOURINARY: c ircumcised , no penile lesions or discharge , no testicular mass , testes descended bilaterally. EXTREMITIES: n o clubbing, cyanosis, or edema. NEUROLOGIC: n onfocal, motor strength normal upper and lower extremities, sensory exam intact. Assessment: * Assessment: 1. E ncounter for general adult medical examination without abnormal findings - Z00.00 (Primary) 2 . E ssential hypertension - I10 3 . P rostatism - N40.0 4 . A cute diastolic congestive heart failure - I50.31 5 . A cquired hypothyroidism - E03.9 6 . P ure hypercholesterolemia - E78.00 7 . C hronic atrial fibrillation - I48.20 Plan: * Treatment: 2. E ssential hypertension Continue Metoprolol Succinate ER Tablet Extended Release 24 Hour, 100 MG, 1 tablet, Orally, Once a day; C ontinue dilTIAZem HCl Tablet, 120 MG, as directed, Orally, qd. Notes: well controlled, will continue current regiment 3. P rostatism Continue Tamsulosin HCl Capsule, 0.4 MG, TAKE 1 CAPSULE BY MOUTH EVERY DAY. Notes: doing well. being followed by urology, will contnue current regiment 4. A cute diastolic congestive heart failure Continue Furosemide Tablet, 40 MG, alternating 40mg and 20mg, Orally. Notes: doing well on meds. will continue current regiment 5. A cquired hypothyroidism Notes: stable, will continue current regiment 6. P ure hypercholesterolemia Continue Atorvastatin Calcium Tablet, 10 MG, TAKE 1 TABLET 1 TIME DAILY, Orally, Once a day. ? Notes: stable, will continue current regiment 7. C hronic atrial fibrillation Continue Pradaxa Capsule, 150 MG, 1 capsule, Orally, Twice a day. 8. O thers Refill Levoxyl Tablet, 100 MCG, take 1 tablet every morning on an empty stomach, Orally, Once a day, 90 days, 90, Refills 4. * Procedure Codes: * Preventive Medicine: CHF Care Plan: P atient Lifestyle Goals R elieve symptoms and improve quality of life. T reatment Goals T lexx medicine exactly as directed and plan for RX refills. B arriers N o Specific barriers. S elf-Managment Goals M onitor your symptoms daily. * Follow Up: 6 Months * * Sign off status: Completed true * Provider: Marilee Levin MD Date: 04/09/2023 Generated for Wilmer salazar/Tequila/Brandyitting on: 04/09/2024 09:25 AM EST History and Physical Notes * HPI (History of Present Illness) Category Sub-Category Detail Notes Category Not es Symptom(s) patient is a 79 yo male here for yearly evaluation with review of recent labs and follow up of chronic issues. Depression Screening PHQ-9 Little inte rest or pleasure in doing things: Not at all Feeling down, depressed, or hopeless: No t at all Trouble falling or staying asleep, or sl eeping too much: Not at all Feeling tired or having little energy: N ot at all Poor appetite or overeating: Not at all Feeling bad about yourself o r that you are a failure, or have let yourself or your family down: Not at all Trouble concentrating on thi ngs, such as reading the newspaper or watching television: Not at all Moving or speaking so slowly that other people could have noticed; or the opposite, being so fidgety or restless that you have been moving around a lot more than usual: Not at all Thoughts that you would be b elaina off or of hurting yourself in some way: Not at all Total Score: 0 Interpretation and Intervention Depression Yayo contreras Findings: Negative Follow-Up for Depression: : review of PH Q-9 found negative result, no follow-up needed SDOH Questions SDOH Questions In the past year have you been worried about losing housing?: No In the past year have you or any family members you live with been unable to get any of the following when it was really needed? Check all that apply:: None Fall Risk History Have you had any falls with injury i n the past year?: No Have you had two or more falls in the st year?: No Communication Needs Communication Needs Does the patient have a hearing impairment: No Does the patient have a vision impairmen t?: Yes If yes, what is the vision impairment?: Glasses Does the patient have a cognition impair ment?: No Examination Category Sub-Category Detail Notes Category Not es General Examination GENERAL APPEARANCE: well dev eloped, well nourished, in no acute distress HEAD: normocephalic, atrau matic EYES: pupils equal, round, reactive to light and accommodation, sclera non-icteric EARS: normal THROAT: clear NECK/THYROID: neck supple, full ra nge of motion, no cervical lymphadenopathy, no bruits HEART: regular rate and rhy thm, S1, S2 normal, no murmurs LUNGS: clear to auscultatio n bilaterally ABDOMEN: soft, nontender, non distended, bowel sounds present, normal, no organomegaly , no masses palpable NEUROLOGIC: nonfocal, motor stre ngth normal upper and lower extremities, sensory exam intact SKIN: warm and dry, no katherine picious lesions EXTREMITIES: no clubbing, cyanosi s, or edema MALE GENITOURINARY: circumcised , no pen ile lesions or discharge , no testicular mass , testes descended bilaterally RECTAL EXAM: normal tone, no exte rnal hemorrhoids, no masses palpable, prostate normal, stool guaiac negative ORAL CAVITY: mucosa moist
--- OUTSIDE RECORDS SUMMARY | 2024-06-12 04:23 | XMS_ITS ---
Author Organization Maykel Levin MD Address [address] [facility] [address] [place] [phone] Care Team Providers Care Head Greenskeeper Name Role Phone Maykel Levin Primary Care Provider REASON FOR VISIT HCC Risk Codes 08/07 Encounters Encounter Location Date Provider Diagnosis Maykel Levin MD [address] [facility] [address] [place] [phone] 06/12/2024 Maykel Levin Plan Of Treatment Next Appt Details Provider Name:Maykel stewart, 02/12/2025 09:30:00 AM, [address] [facility], Suite [facility], [place], [place], [phone], Progress Notes * Madan OLIVEIRADOB :1945 (79 yo M)Acc No.[id number]:06/12/2024 Patient: Lucy DELCID Madan Fitch :1945 A ge:79 Y S ex:Male Address:[address] [place] [id number] * true * Date: Generated for Wilmer salazar/Tequila/Brandyitting on: 04/09/2024 09:26 AM EST
--- OUTSIDE RECORDS SUMMARY | 2024-07-31 02:45 | XMS_ITS ---
Author Organization Maykel Levin MD Address [address] [place] [phone] Care Team Providers Care Fork Lift Mechanic Name Role Phone Maykel Levin Primary Care Provider Results Component Value Reference Range Notes Liver Panel Reviewed date:08/02/2024 05:36:26 PM Interpretation: Performing Lab:[facility], [address] [place] [phone] Notes/Report: Bilirubin Total 1.7 0.0-1.0 mg/dL Slight Icte morena. Bilirubin Direct 0.5 0.0-0.5 mg/dL Slight Ict erus. Aspartate Amino Transferase 26 5-37 U/L Alanine Aminotransferase 20 0-40 U/L Total Protein 7.0 6.5-8.0 g/dL Albumin Level 4.3 3.5-5.0 g/dL Alkaline Phosphatase 71 39-117 U/L REASON FOR VISIT fasting lipids Encounters Encounter Location Date Provider Diagnosis Maykel Levin MD [address] [facility] [address] [place], [place] [phone] 07/31/2024 Maykel Levin Pure hypercholestero lemia E78.00 Assessments Encounter Date Diagnosis (ICD Code) Assessment Notes Treatment Notes Treatment Clinical Notes Section Notes 07/31/2024 Pure hypercholesterolemia (ICD-10 - E78.00) Plan Of Treatment Pending Test Test Name Order Date Lipid Panel with Reflex 07/31/2024 Next Appt Details Provider Name:Maykel Jason ier, 02/12/2025 09:30:00 AM, [address], [address], [place], [place], [phone], Progress Notes * Madan OLIVEIRADOB :1945 (80 yo M)Acc No.[id number]:07/31/2024 Progress Note Patient: Lucy LUISMadan AHN Little Provider: Marilee Levin MD :1945 A ge:79 Y S ex:Male Date:07/31/2024 Address:[address] [place], [place] [phone] Subjective: * Chief Complaints: * 1 . [...] 0 07/31/2024 Generated for Wilmer salazar/Tequila/Griselda on: 1 04/09/2024 09:25 AM EST
--- OUTSIDE RECORDS SUMMARY | 2024-08-07 04:00 | XMS_ITS ---
Author Organization Maykel Levin MD Address [address] [place] [phone] Care Team Providers Care Functional Architect Name Role Phone Maykel Levin Primary Care Provider Allergies No Known Allergies REASON FOR VISIT 6 month, check right great toenail Medications Medication SIG (Take, Route, Frequency, Duration) Notes Start Date End Date Status Pradaxa 150 MG 1 capsule Orally Twi ce a day Active Metoprolol Succinate ER 100 MG 1 tablet Orally Once a day Active Clobetasol Propionate 0.05 % 1 application to affected area Externally Twice a day for 14 days 08/30/2012 Not-Taking Cialis 20 MG 1 tablet Orally for 30 day(s) 12/25/2010 Not-Taking Ventolin HFA * 108 (90 Base) MCG/ACT 2 puffs as needed Inhalation every 4 hrs for 30 day(s) 06/13/2015 Not-Taking Atorvastatin Calcium 10 MG TAKE 1 TABLET DAILY for 90 Active Xopenex HFA 45 MCG/ACT 1 puff as needed Inhalation every 6 hrs Not-Takin g Terazosin HCl 5 MG 1 capsule at bedtime Orally Once a day Not-Taking dilTIAZem HCl 120 MG as directed Orally qd Active Tamsulosin HCl 0.4 MG TAKE 1 CAPSULE BY MOUTH EVERY DAY Active Omeprazole 20 MG 1 capsule 30 minutes before morning meal Orally Once a day for 30 day(s) Active Albuterol Sulfate HFA 108 (90 Base) MCG/ACT inhale 1 puff into the lungs every 4 hours for 30 days Inhalation every 4 hrs for 90 days Active Levoxyl 100 MCG take 1 tablet every morning on an empty stomach Orally Once a day for 90 days Active Jardiance 10 MG 1 tablet Orally Once a day for 30 day(s) Active Latanoprost 0.005 % 1 drop into affected eye in the evening Ophthalmic Once a day Active Furosemide 40 MG alternating 40mg and 20mg Orally Active Finasteride 5 MG 1 tablet Orally Once a day for 30 day(s) Active Problems Problem Type SNOMED Code ICD Code Onset Dates Problem Status W/U Status Risk Notes Problem Acute on chronic diastolic heart failure (828451076) Acute on chronic diastolic (congestive) heart failure (I50.33) Active confirmed Vital Signs Blood pressure systolic 120 mm Hg 08/08/19 25 Blood pressure diastolic 70 mm Hg 025 Height 66 in 08/07/2024 Weight 184 lbs 08/07/2024 BMI 29.7 kg/m2 08/07/2024 weight is up 2 pounds since 02-08-24 Encounters Encounter Location Date Provider Diagnosis Maykel Levin MD [address] [place] [address] Drive [address] [place] [phone] 08/07/2024 Maykel Levin Pure hypercholestero lemia E78.00 ; Onychomycosis B35.1 and Acute on chronic diastolic (congestive) heart failure I50.33 Assessments Encounter Date Diagnosis (ICD Code) Assessment Notes Treatment Notes Treatment Clinical Notes Section Notes 08/07/2024 Pure hypercholesterolemia (ICD-10 - E78.00) not quite at goal, advised on diet, will continue current regiment and will continue to monitor 08/07/2024 Onychomycosis (ICD-1 0 - B35.1) to see ladle handler 08/07/2024 Acute on chronic diastolic (congestive) heart failure (ICD-10 - I50.33) stable, will cntnue current regiment 08/07/2024 Other stable, will continue current regiment Plan Of Treatment Medication Medication Name Sig Start Date Stop Date Notes Pradaxa 150 MG 1 capsule Orally Twice a day Metoprolol Succinate ER 100 MG 1 tablet Orally Once a day Furosemide 40 MG alternating 40mg and 20mg Orally Treatment Notes Assessment Notes Pure hypercholesterolemia not quite at g oal, advised on diet, will continue current regiment and will continue to monitor Onychomycosis to see ladle handler Acute on chronic diastolic ( congestive) heart failure stable, will cntnue current regiment Other stable, will continu e current regiment Next Appt Details Provider Name:Maykel lopesr, 02/12/2025 09:30:00 AM, [address] [place] [address], [address], [phone], Progress Notes * Madan OLIVEIRADOB :1945 (79 yo M)Acc No.[id number]:08/07/2024 Progress Notes Patient: Madan CLAIRE Provider: Marilee Levin MD :1945 A ge:79 Y S ex:Male Date:08/07/2024 Address:[address] [place], [place] [phone] Subjective: * Chief Complaints: * 6 monthCheck right great toenail * HPI: S ymptom(s): patient is a 79 yo male here for 6 month follow up visit. * ROS: G eneral/Constitutional: Denies C hills. D enies F atigue. D enies F ever. D enies H eadache. E NT: Denies S ore throat. R espiratory: Denies C ough. D enies S hortness of breath at rest. D enies S hortness of breath with exertion. C ardiovascular: Denies C hest pain at rest. D enies C hest pain with exertion. D enies P alpitations. D enies S hortness of breath. G astrointestinal: Denies D iarrhea. José Jiménez ausea. * Medical History: * Surgical History: * Hospitalization/Major Diagno stic Procedure: * Medications: T akingFinasteride 5 MG Tablet 1 tablet Orally Once a day Omeprazole 20 MG Capsule Delayed Release 1 capsule 30 minutes before morning meal Orally Once a day Jardiance 10 MG Tablet 1 tablet Orally Once a day Latanoprost 0.005 % Solution 1 drop into affected eye in the evening Ophthalmic Once a day Albuterol Sulfate HFA 108 (90 Base) MCG/ACT Aerosol Solution inhale 1 puff into the lungs every 4 hours for 30 days Inhalation every 4 hrs Levoxyl 100 MCG Tablet take 1 tablet every morning on an empty stomach Orally Once a day Metoprolol Succinate ER 100 MG Tablet Extended Release 24 Hour 1 tablet Orally Once a day Pradaxa 150 MG Capsule 1 capsule Orally Twice a day dilTIAZem HCl 120 MG Tablet as directed Orally qd Furosemide 40 MG Tablet alternating 40mg and 20mg Orally Tamsulosin HCl 0.4 MG Capsule TAKE 1 CAPSULE BY MOUTH EVERY DAY Atorvastatin Calcium 10 MG Tablet TAKE 1 TABLET DAILY Taking Finasteride 5 MG Tablet 1 tablet Orally Once a day Taking Omeprazole 20 MG Capsule Delayed Release 1 capsule 30 minutes before morning meal Orally Once a day Taking Jardiance 10 MG Tablet 1 tablet Orally Once a day Taking Latanoprost 0.005 % Solution 1 drop into affected eye in the evening Ophthalmic Once a day Taking Albuterol Sulfate HFA 108 (90 Base) MCG/ACT Aerosol Solution inhale 1 puff into the lungs every 4 hours for 30 days Inhalation every 4 hrs Taking Levoxyl 100 MCG Tablet take 1 tablet every morning on an empty stomach Orally Once a day Taking Metoprolol Succinate ER 100 MG Tablet Extended Release 24 Hour 1 tablet Orally Once a day Taking Pradaxa 150 MG Capsule 1 capsule Orally Twice a day Taking dilTIAZem HCl 120 MG Tablet as directed Orally qd Taking Furosemide 40 MG Tablet alternating 40mg and 20mg Orally Taking Tamsulosin HCl 0.4 MG Capsule TAKE 1 CAPSULE BY MOUTH EVERY DAY Taking Atorvastatin Calcium 10 MG Tablet TAKE 1 TABLET DAILY Not-Taking/PRNXopenex HFA 45 MCG/ACT Aerosol 1 puff as needed Inhalation every 6 hrs Terazosin HCl 5 MG Capsule 1 capsule at bedtime Orally Once a day Ventolin HFA * 108 (90 Base) MCG/ACT Aerosol Solution 2 puffs as needed Inhalation every 4 hrs Clobetasol Propionate 0.05 % Cream 1 application to affected area Externally Twice a day Cialis 20 MG Tablet 1 tablet Orally Medication List reviewed and reconciled with the patientNot-Taking/PRN Xopenex HFA 45 MCG/ACT Aerosol 1 puff as needed Inhalation every 6 hrs Not-Taking/PRN Terazosin HCl 5 MG Capsule 1 capsule at bedtime Orally Once a day Not-Taking/PRN Ventolin HFA * 108 (90 Base) MCG/ACT Aerosol Solution 2 puffs as needed Inhalation every 4 hrs Not-Taking/PRN Clobetasol Propionate 0.05 % Cream 1 application to affected area Externally Twice a day Not-Taking/PRN Cialis 20 MG Tablet 1 tablet Orally Medication List reviewed and reconciled with the patient * Allergies: N .K.D.A.yes[Allergies Verified] Objective: * Vitals: H t: 66, Wt: 184, BMI:29.7, BP:120/70, Wt-k.46. weight is up 2 pounds since 02-08-24. * Examination: G eneral Examination: GENERAL APPEARANCE: a lert, well hydrated, in no distress.? HEAD: n ormocephalic. SKIN: g ood turgor. HEART: r egular rate and rhythm. LUNGS: n o wheezes, rales, rhonchi, good air movement, clear to auscultation bilaterally. EXTREMITIES: a bnormal/ with left great toenail with onychomycosis. has some pigment on the eedge that appears to be from bleeding. Assessment: * Assessment: 1. P ure hypercholesterolemia - E78.00 (Primary) 2 . O nychomycosis - B35.1? 3. A cute on chronic diastolic (congestive) heart failure - I50.33 ? Plan: * Treatment: 2. O nychomycosis Notes: to see ladle handler 3. A cute on chronic diastolic (congestive) heart failure Continue Furosemide Tablet, 40 MG, alternating 40mg and 20mg, Orally. Notes: stable, will cntnue current regiment 4. O thers Continue Pradaxa Capsule, 150 MG, 1 capsule, Orally, Twice a day; C ontinue Metoprolol Succinate ER Tablet Extended Release 24 Hour, 100 MG, 1 tablet, Orally, Once a day. Notes: stable, will continue current regiment * Procedure Codes: * * Sign off status: Completed true * Provider: Marilee Levin MD Date: 0 08/07/2024 Generated for Wilmer salazar/Tequila/Brandyitting on: 1 04/09/2024 09:26 AM EST History and Physical Notes * HPI (History of Present Illness) Category Sub-Category Detail Notes Category Not es Symptom(s) patient is a 79 yo male here for 6 month follow up visit Examination Category Sub-Category Detail Notes Category Not es General Examination GENERAL APPEARANCE: alert, w ell hydrated, in no distress HEAD: normocephalic HEART: regular rate and rhy thm LUNGS: no wheezes, rales, r honchi, good air movement, clear to auscultation bilaterally SKIN: good turgor EXTREMITIES: abnormal/ with left great toenail with onychomycosis. has some pigment on the eedge that appears to be from bleeding
--- OUTSIDE RECORDS SUMMARY | 2024-12-08 08:19 | XMS_ITS ---
Author Organization Maykel Levin MD Address 10 [facility] [address] [place] [phone] Care Team Providers Care Alarm Operator Name Role Phone Maykel Levin Primary Care Provider REASON FOR VISIT ER Encounters Encounter Location Date Provider Diagnosis Maykel Levin MD [address] [facility] [address] [place] [phone] 12/08/2024 Maykel Levin Plan Of Treatment Next Appt Details Provider Name:Maykel stewart, 02/12/2025 09:30:00 AM, [address] [place] [address], [address] [place] [address], [phone], Progress Notes * Madan OLIVEIRADOB :1945 (79 yo M)Acc No.[id number]:12/08/2024 Patient: Madan CLAIRE :1945 A ge:79 Y S ex:Male Address:[address] [place] [address] * true * Date: Generated for Wilmer salazar/Tequila/Brandyitting on: 04/09/2024 09:26 AM EST
--- OUTSIDE RECORDS SUMMARY | 2025-02-05 04:15 | XMS_ITS ---
Author Organization Maykel Levin MD Address [address] [place] [phone] Care Team Providers Care Incident Response Lead Name Role Phone Maykel Levin Primary Care Provider REASON FOR VISIT yearly fasting labs Encounters Encounter Location Date Provider Diagnosis Maykel Levin MD [address] [place] [id number] 02/05/2025 Makyel Levin Blood tests for rout ine general physical examination Z00.00 ; Acquired hypothyroidism E03.9 ; Essential hypertension I10 ; Pure hypercholesterolemia E78.00 ; Prostatism N40.0 and Acute diastolic congestive heart failure I50.31 Assessments Encounter Date Diagnosis (ICD Code) Assessment Notes Treatment Notes Treatment Clinical Notes Section Notes 02/05/2025 [address] tests for rout ine general physical examination (ICD-10 - Z00.00) 02/05/2025 Acquired hypothyroid ism (ICD-10 - E03.9) 02/05/2025 Essential hypertensi on (ICD-10 - I10) 02/05/2025 Pure hypercholesterolemia (ICD-10 - E78.00) 02/05/2025 Prostatism (ICD-10 - N40.0) 02/05/2025 Acute diastolic congestive heart failure (ICD-10 - I50.31) Plan Of Treatment Pending Test Test Name Order Date Complete Blood Count Auto Diff Comprehensive Tucker. Panel Fast Lipid Panel 02/05/2025 PSA,Total (Free>4and<10) 02/05/2025 TSH reflex Free T4 02/05/2025 UA ClnCatch+Micro w/rflx Cult 02/05/2025 Next Appt Details Provider Name:Maykel stewart, 02/12/2025 09:30:00 AM, [address] [place] [address], [address], [phone], Progress Notes * Madan OLIVEIRADOB :1945 (80 yo M)Acc No.[id number]:02/05/2025 Progress Note Patient: Lucy Madan DELCID Provider: Marilee Levin MD :1945 A ge:80 Y S ex:Male Date:02/05/2025 Address:[address] [place], [place] [phone] Subjective: * Chief Complaints: * 1 . Yearly fasting labs. * Medical History: Objective: * Vitals: Assessment: * Assessment: 1. B lood tests for routine general physical examination - Z00.00 (Primary) 2 .?Acquired hypothyroidism - E03.9 3 . E ssential hypertension - I10 ? 4 . P ure hypercholesterolemia - E78.00 5 . P rostatism - N40.0 6 . A cute diastolic congestive heart failure - I50.31 Plan: * Treatment: 2. A cquired hypothyroidism L AB: Complete Blood Count Auto Diff L AB: Comprehensive Tucker. Panel Fast L AB: Lipid Panel L AB: PSA,Total (Free>4and<10) L AB: TSH reflex Free T4 L AB: UA ClnCatch+Micro w/rflx Cult 3. E ssential hypertension L AB: Complete Blood Count Auto Diff L AB: Comprehensive Tucker. Panel Fast L AB: Lipid Panel L AB: PSA,Total (Free>4and<10) L AB: TSH reflex Free T4 L AB: UA ClnCatch+Micro w/rflx Cult 4. P ure hypercholesterolemia L AB: Complete Blood Count Auto Diff L AB: Comprehensive Tucker. Panel Fast L AB: Lipid Panel L AB: PSA,Total (Free>4and<10) L AB: TSH reflex Free T4 L AB: UA ClnCatch+Micro w/rflx Cult 5. P rostatism L AB: Complete Blood Count Auto Diff L AB: Comprehensive Tucker. Panel Fast L AB: Lipid Panel L AB: PSA,Total (Free>4and<10) L AB: TSH reflex Free T4 L AB: UA ClnCatch+Micro w/rflx Cult 6. A cute diastolic congestive heart failure L AB: Complete Blood Count Auto Diff L AB: Comprehensive Tucker. Panel Fast L AB: Lipid Panel L AB: PSA,Total (Free>4and<10) L AB: TSH reflex Free T4 L AB: UA ClnCatch+Micro w/rflx Cult * * The named appointment provid er may or may not be the originator of this progress note, and it is not deemed complete until electronically signed by the appointment provider. Sign off status: Pending * Provider: Marilee Levin MD Date: 04/07/2024 Generated for Wilmer salazar/Tequila/Griselda on: 04/09/2024 09:24 AM EST
--- OUTSIDE RECORDS SUMMARY | 2025-02-07 09:25 | XMS_ITS | Patient Health Record ---
Author Organization [facility] Address [address] [place] [address] Care Team Providers Care Accounting Associate Name Role Phone Maykel Levin MD Primary Care Provider Farhan Garner [phone] Reason For Referral No Information Medications Medication [...] Problem Screening for malignant neoplasm of colon (563785177) Encounter for screening for malignant neoplasm of colon (Z12.11) Active confirmed Problem History of adenomatous polyp of colon (188221951) History of adenomatous polyp of colon (Z86.010) Active confirmed Problem Screening for malignant neoplasm of rectum (871813685) Encounter for screening for malignant neoplasm of rectum (Z12.12) Active confirmed Problem Esophageal stricture (08810844) Esophageal stricture (K22.2) Active confirmed Problem Dysphagia (59842269) Pharyngoesophageal dysphagia (R13.14) Active confirmed Problem Reflux esophagitis (982190385) Reflux esophagitis (K21.0) Active confirmed Plan Of Treatment Future Test Test Name Order Date UPPER GI ENDOSCOPY BALLOOON DILATION OF ESOPH 12/04/2015 COLONOSCOPY 12/25/2016 Insurance Providers Payer Name Payer Address Payer Phone Subscriber Number Group Number Insured Name Patient Relationship to Insured Coverage Start Date Coverage End Date [facility] [address] [place] [phone] [id number] MEG CRAIG Self - patient is the insured Medical (General) History Medical History History ICD Code Tubular adenomas of the colo n--removed in 1999 and December of 2011--a colonoscopy in 2006 revealed only a hyperplastic polyp Denies [place],DM,CVA,Lung disease,renal dise ase Hyperlipidemia HTN Hypothyroidism A-fib [...]
--- OUTSIDE RECORDS SUMMARY | 2025-02-07 09:26 | XMS_ITS | Clinical Summary ---
Author Organization [facility] Address [address] [place] [address] Phone Care Team Providers Care Customer Engagement Representative Name Role Phone Maykel Levin MD Primary [...] on patient's age to complete this topic IPV VACCINES Aged Out No longer eligi ble based on patient's age to complete this topic MENINGOCOCCAL VACCINES (ACWY) Aged Out No longer eligible based on patient's age to complete this topic MENINGOCOCCAL VACCINES (B) Aged Out N o longer eligible based on patient's age to complete this topic Medical Devices Not on file Insurance [employer] HMO [place] [address] [place] [address] MEDICARE HMO REPLACEMENT [employer] H[employer] [place] [address] [address] [place] [address] MEDICARE HMO REPLACEMENT [employer] REPLACEMENT [employer] REPLACEMENT Care Teams Customer Engagement Representative Relationship Specialty Start Date End Date Maykel Levin MD [address] [place] [address] [place] [address] PCP - General 04/01/17 Additional Source Comments The information contained in this document represents components of the legal health record. It is not the complete legal health record.[facility]
--- OUTSIDE RECORDS SUMMARY | 2025-02-07 09:27 | XMS_ITS | Patient Health Record ---
Author Organization Maykel Levin MD Address [address] [place], [place] [id number] Care Team Providers Care Watershed Engineer Name Role Phone Maykel Levin Primary Care Provider Allergies No Known Allergies Results Component Value Reference Range Notes Lipid Panel Reviewed date:08/02/2024 05:36:51 PM Interpretation: Performing Lab:[facility], [address] [place] [phone] Notes/Report: Triglycerides 95 <150 mg/dL Desirable Triglyceride: [...] disease. Complete Blood Count Auto Di ff Reviewed date:12/07/2024 07:52:30 AM Interpretation: Performing Lab:[facility], [address] [place] [phone] Notes/Report: White Blood Count 6.1 4.8-10.8 X10*3/uL [...] INR Reviewed date:12/07/2024 07:50:41 AM Interpretation: Performing Lab:[facility], [address] [place] [phone] Notes/Report: Prothrombin Time 13.8 10.9-12.4 SEC [employer] [...] Panel Reviewed date:12/07/2024 12:22:37 PM Interpretation: Performing Lab:[facility], [address] [place] [phone] Notes/Report: Sodium 136 135-145 mmol/L Potassium 4.0 [...] Magnesium Reviewed date:12/07/2024 07:50:22 AM Interpretation: Performing Lab:[facility], [address] [place] [phone] Notes/Report: Magnesium 1.7 1.6-2.6 mg/dL Troponin-I High Sensitivity Reviewed date:12/07/2024 12:22:08 PM Interpretation: Performing Lab:[facility], [address] [place] [phone] Notes/Report: Troponin-I High Sensitivity 63.2 <3.5-35.0 ng/L The [place] high sensitivity Troponin-I results should be used in conjunction with other diagnostic information such as ECG, clinical observations and information, and patient symptoms to aid in the diagnosis of [place]. COVID-19 ID NOW ([facility]) Reviewed date:12/07/2024 07:49:00 AM Interpretation: Performing Lab:[facility], [address] [place] [phone] Notes/Report: [facility]NOW Serial# [id number] COVID-19 Test Positive Negative COVID-19 Note See [...] with other viruses. Testing facilities within the [facility] and its territories are required to [...] t Reviewed date:12/07/2024 12:34:25 PM Interpretation: Performing Lab:[facility], [address] [place] [phone] Notes/Report: Urine, Clean Catch Color Urine Yellow Appearance Urine Clear PH 6.0 5.0-9.0 Glucose Urine UA >=1000 Negative mg/dL Urine Blood Negative Negative Specific [place] - Urine 1.020 1.005-1.025 Urine Protein Negative Neg-Trace mg/dL Urine Ketones Negative Negative mg/dL Nitrite Urine Negative Negative Leukocyte Esterase Urine Negative Negative RBC Urine 0-2 0-2 /HPF WBC Urine 0-5 0-5 /HPF Squamous Epithelial Cell Urine 0-2 0-2 /HPF Bacteria Urine None Seen None Seen Hyaline Casts Urine 0-2 0-2 /LPF Venous Blood Gases - POC Reviewed date:12/07/2024 07:49:18 AM Interpretation: Performing Lab:[facility], [address] [place] [phone] Notes/Report: VBG pH 7.42 7.32-7.43 METER #: [id number] additional_comment: Cb ribl VBG pCO2 34 METER #: [id number] additional_comment: Cb ribl VBG pO2 49 METER #: [id number] additional_comment: Cb ribl VBG Base Excess -0.9 METER #: [id number] additional_comment: Cb ribl VBG HCO3 22 22-26 mmol/L METER #: [id number] additional_comment: Cb ribl VBG O2 % Saturation 77.0 METER #: [id number] additional_comment: Cb ribl Influenza A B2 ID NOW ([facility]) Reviewed date:12/07/2024 12:22:18 PM Interpretation: Performing Lab:[address] [phone] Notes/Report: [facility] Serial# [id number] Influenza A Negative Negative Influenza B2 Negative [...] date:12/07/2024 07:50:14 AM Interpretation: Performing Lab: Notes/Report: [address] [address] XRay Report Signed Patient: Madan Oliveira MR#: [id number] : 1945 Acct:[id number] Age/Sex: 79 / M ADM Date: 12/06/24 Loc: HO.ED Attending Dr: Ordering Physician: Ashley Pierce Date of Service: 12/06/24 Procedure(s): XR chest 2V Accession Number(s): [id number] cc: Maykel Levin MD; Ashley Pierce Reason [...] in OV> 12/07/24155 DD/ 05 TD/TT: 12/06/242105 Plastic Top Assembler: [address] [address] XRay Report Signed Patient: Madan Oliveira MR#: [id number] : 1945 Acct:[id number] Age/Sex: 79 / M ADM Date: 12/06/24 Loc: .ED Attending Dr: Ordering Physician: Ashley Pierce Date of Service: 12/06/24 Procedure(s): XR [address] 2V Accession Number(s): [id number] cc: Maykel Levin MD; Ashley Pierce Reason [...] in OV> 12/07/24155 DD/ 05 TD/TT: 12/06/242105 Plastic Top Assembler: Reason For Referral No Information Medications Medication [...] 05/03/2017 Administered Fluarix Quadrivalent IM Intramuscular 12/20/2017 Adminwhite red Influenza High Dose IM Intramuscular 01/03/2019 [...] W/U Status Risk Notes Problem Erectile dysfunction (306576639) Erectile Dysfunction (607.84) Active confirmed Problem 06673895 Prostatism (N40.0) Active confirmed Problem 71269488 Hypercalcemia (E83.52) Active confirme d Problem 614842206 Chronic atrial fibrillation (I48.2) Active confirmed Problem Acute on chronic diastolic heart failure (889085454) Acute on chronic diastolic (congestive) heart failure (I50.33) Active confirmed Problem Ascites (890419852) Other ascites (R18.8) Active confirmed Problem 8016160 Diastolic dysfun ction (I51.9) Active confirmed Problem 977085334 Tubular adenoma of colon (D12.6) Active confirmed Problem 55619271 Essential hypert ension (I10) Active confirmed Problem 605808700 Acquired hypothy roidism (E03.9) Active confirmed Problem 18165048 Monocytosis (D72.821) Active confirmed Problem 135826972 Chronic a-fib (I48.2) Active confirme d Problem Acute diastolic heart failure (103585490) Acute diastolic congestive heart failure (I50.31) Active confirmed Problem 228041506 Pure hypercholesterolemia (E78.00) Active confirmed Problem Acute asthma (703966216) Acute asthma (J45.909) Active confirmed Problem 364201984 BMI 30.0-30.9,ad ult (Z68.30) Active confirmed Problem Tomography - chest abnormal (691659571) Abnormal CT scan, chest (R93.89) Active confirmed Problem 816566729 Chronic atrial fibrillation, unspecified (I48.20) Active confirmed Problem 503968882 Chronic atrial fibrillation (I48.20) Active confirmed Vital [...] Location Date Provider Diagnosis Maykel Levin MD [address] [place] [address] [id number] 02/08/2024 Maykel Levin Essential hypertensi on I10 ; Encounter for general adult medical examination without abnormal findings Z00.00 ; Prostatism N40.0 ; Acute diastolic congestive heart failure I50.31 ; Acquired hypothyroidism E03.9 ; Pure hypercholesterolemia E78.00 and Chronic atrial fibrillation I48.20 Maykel Levin MD [address] [place] [address] Drive [address] [place] [id number] 08/07/2024 Maykel Levin Pure hypercholestero lemia E78.00 ; Onychomycosis B35.1 and Acute on chronic diastolic (congestive) heart failure I50.33 Maykel Levin MD [address] [place] [id number] 06/12/2024 Maykel Levin MD [address] [place] [address] Drive [address] [place] [id number] 12/08/2024 Maykel Levin Assessments Encounter Date Diagnosis [...] Onychomycosis (ICD-1 0 - B35.1) 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 [...] 08/05/2021 Next Appt Details Provider Name:Maykel stewart, 02/12/2025 09:30:00 AM, [address], [address], [place], [place], [id number], Insurance Providers Payer Name Payer Address Payer Phone Subscriber Number Group Number Insured Name Patient Relationship to Insured Coverage Start Date Coverage End Date [employer] PLAN [address] [place] [phone] [id number] Madan Barrios Self - patient is the insured [employer] [address] [place] [address] [id number] Madan Barrios Self - patient is the insured Medical (General) History Medical History History ICD Code Colonoscopy 2006; colonoscop y and endoscopy done 01/15/2012; colonoscopy by Dr. Dickey 03/11/17 - no more indicated
[2025-02-07 11:49] LABS: MANUAL DIFF FLAG NO
[2025-02-07 11:52] LABS: Appearance Urine Clear; Glucose Urine UA >=1000 mg/dL (Negative); PH 6.5 (5.0-9.0); Specific Gravity - Urine 1.015 (1.005-1.025); UMIC TRIGGER UACC YES
[2025-02-07 12:12] LABS: Hematocrit 49.8 % (42.0-52.0); Hemoglobin 16.3 g/dl (14.0-18.0); Imm Gran Abs Auto 0.01 X10*3/uL (0.00-0.03); Imm Gran Pct Auto 0.2 % (0.0-0.4); Lymphocytes Absolute Auto 1.3 X10*3/uL (1.2-4.9); Mean Corpuscular HGB Conc 32.7 g/dl (31.0-36.0); Mean Corpuscular Hemoglobin 32.3 pg (27.0-33.0); Mean Corpuscular Volume 98.6 fL (80.0-98.0); NRBC Abs Auto 0.000 X10*3/uL (0.0-0.012); NRBC Pct Auto 0.0 /100WBC (0.0-0.2); Platelet Count 131 X10*3/uL (160-400); Red Blood Count 5.05 X10*6/uL (4.60-5.80); White Blood Count 4.6 X10*3/uL (4.8-10.8)
[2025-02-07 12:39] LABS: Alanine Aminotransferase 21 U/L (0-40); Albumin Level 4.3 g/dL (3.5-5.0); Alkaline Phosphatase 74 U/L (39-117); Anion Gap 10 (12-20); Aspartate Amino Transferase 28 U/L (5-37); Blood Urea Nitrogen 19 mg/dL (9-16); Calcium 9.5 mg/dL (8.4-10.2); Carbon Dioxide 27 mmol/L (22-29); Chloride 105 mmol/L (96-108); Cholesterol 170 mg/dL (<200); Estimated Glomerular Filt Rate 53; HDL Cholesterol 60 mg/dL (>40); Potassium 4.3 mmol/L (3.3-5.1); Sodium 138 mmol/L (135-145); Total Protein 6.8 g/dL (6.5-8.0); Triglycerides 82 mg/dL (<150)
[2025-02-07 13:07] LABS: PSA,Total (Free>4and<10) 1.69 ng/mL (0.00-4.00)
== END 2025-02-07 08:53 | disposition home or self-care (01) ==
LOC: HO.WFDLDS 08:52
PROVIDERS: Visit Provider Internal Medicine
DX: Z00.00 Encounter for general adult medical examination without abnormal findings (principal); I11.0 Hypertensive heart disease with heart failure; I50.31 Acute diastolic (congestive) heart failure; E03.9 Hypothyroidism, unspecified; E78.00 Pure hypercholesterolemia, unspecified; N40.0 Benign prostatic hyperplasia without lower urinary tract symptoms; Z12.5 Encounter for screening for malignant neoplasm of prostate
CPT/HCPCS: 36415; 80053; 80061; 81001; 84153; 84443; 85025